=== PATIENT | female | born 1985 | race Caucasian/White ===

== ENCOUNTER 2016-11-02 10:41 | Day surgery (SDC) | payer OTHER ==
[~2016-11-02 10:41] MED LIST: Buffered Lidocaine 1% SYRIN* 3 ML/SYR SYRINGE INTRADERM ONE
[2016-11-02 10:43] LABS: Manual Entry Verification HAN0055; UR Preg Internal Control QC Line Present
[2016-11-02] MEDS ORDERED: Midazolam* 1 MG/ML 2 ML VIAL (2 MG) ONE (12:00)
[2016-11-02] MEDS ORDERED: Lidocaine 2% PF * 5 ML VIAL ONE (12:00)
[2016-11-02] MEDS ORDERED: fentaNYL* 50 MCG/ML 2 ML VIAL (100 MCG VIAL) ONE (12:00)
[2016-11-02] MEDS ORDERED: Propofol* 10 MG/ML 20 ML BTL IV PUSH ONE (12:00)
[2016-11-02] MEDS ORDERED: fentaNYL* 50 MCG/ML 2 ML VIAL (100 MCG VIAL) IV PRN (12:41)
[2016-11-02] MEDS ORDERED: Ondansetron INJ* 2 MG/ML VIAL IV PRN (12:41)
[2016-11-02 13:44] VITALS: BP 115/60
--- NOTE | 2016-11-03 03:30 | PRO ---
DATE OF PROCEDURE: 11/02/16 [facility] PROCEDURE: EGD. INDICATION: Weight loss, vomiting, hematemesis and abdominal pain. REFERRING PHYSICIAN: Dr. Rocha. MEDICATIONS GIVEN: Conscious sedation administered via anesthesia services. PROCEDURE IN DETAIL: After the EGD procedure, including the risks, benefits, and alternatives, not limited to perforation, surgery and/or were explained to the patient, written consent was then obtained. IV medication was given and a bite block was placed between the teeth. An Olympus gastroscope was then inserted into the patient's mouth, advanced down the esophagus, into the stomach, and into the distal duodenum. In the duodenum, the mucosa appeared normal. A biopsy was obtained for celiac disease. The scope was then withdrawn into the stomach. Retroflex view did reveal a few scattered, very small erosions mainly in the cardia, there were 1 or 2 down in the antrum. Biopsy was obtained for H. pylori. The scope was then withdrawn into the esophagus. At the distal esophagus, there were what appeared to be pinkish plaques, almost looked like an ulcer. I did take a biopsy adjacent to one of them. The scope was then withdrawn from the patient. She tolerated the procedure well and returned to the recovery room in stable condition. IMPRESSION: 1. Complete upper endoscopy into the distal duodenum with biopsies. 2. Erosive esophagitis, status post biopsy. 3. Gastric erosions, status post biopsy. 4. Biopsy for celiac disease. 5. The patient was complaining of epigastric pain after the procedure. She states that it feels very similar to the pain she has been having ever since this began a few months ago. She does have good bowel sounds. She is tender in the epigastric region. She states that this was not present prior to the endoscopy; however, this feels very similar to the episodes of pain and vomiting that she has been having over the past few months. She did drink half a cup of liquid with no ill effects and states that maybe it felt a little bit better. We did watch her for an extended period of time. She states that it felt slightly better than at the beginning, but again it feels just like what has been going on in the past. Her vital signs are stable. She looks fairly comfortable. She was discharged to home. I did call in a prescription for Carafate for her and I asked her to call me immediately if any of her symptoms worsen or she develops fevers, chills, or abdominal distention; she understands. I will follow up on the biopsies. CC: Dr. Rocha* [id number]/[facility] #: [id number] LALA
== END 2016-11-02 14:00 | disposition home or self-care (01) ==
LOC: OR 10:41
PROVIDERS: ATTEND Internal Medicine Gastroenterology
DX: K92.0 Hematemesis (principal); R10.13 Epigastric pain; R11.0 Nausea; R63.4 Abnormal weight loss; K20.8 Other esophagitis; F17.210 Nicotine dependence, cigarettes, uncomplicated
CPT/HCPCS: 81025; 87077; 88305; J2250; J2704; J3010

== ENCOUNTER 2016-12-13 18:55 | Emergency (ER) | payer OTHER ==
[2016-12-13 19:04] VITALS: BP 133/81
--- NOTE | 2016-12-13 20:28 | ED ---
Upper Extremity Pain - HPI Summary HPI Summary: Patient presents with one month of right arm pain that began without known injury. She says she thought she must have pulled a muscle and that it would improve on its own, but it hasn't. She has tried taking ibuprofen, tylenol and her regular gabapentin without relief. She has not seen her PCP regarding this issue. She describes the pain as a deep ache without muscle wasting, lack of function or N/T. - History of Current Complaint Chief Complaint: EDExtremityUpper Stated Complaint: RIGHT ARM PAIN Time Seen by Provider: 12/13/16 19:47 Hx Obtained From: Patient Hx Last Menstrual Period: 11/13/15 Mechanism Of Injury: Unknown Onset/Duration: Started Weeks Ago - 4, Atraumatic, Still Present Timing: Constant Severity Initially: Mild Severity Currently: Severe Pain Location: Arm Character: Dull, Aching Aggravating Factor(s): Nothing Alleviating Factor(s): Nothing Associated Signs & Symptoms: Positive: Negative Related History: Dominant Hand Right - Allergies/Home Medications Allergies/Adverse Reactions: Allergies Allergy/AdvReac Type Severity Reaction Status Date / Time Cephalexin [From Keflex] Allergy Unknown Verified 10/28/16 09:11 Reaction Details Clarithromycin [From Biaxin] Allergy Nausea Verified 05/12/16 14:52 Clindamycin Allergy Vomiting Verified 05/12/16 14:52 Cyclobenzaprine Allergy Nausea Verified 05/12/16 14:52 [From Flexeril] Doxycycline Allergy Vomiting Verified 05/12/16 14:52 Metaxalone [From Skelaxin] Allergy Nausea Verified 05/12/16 14:52 Penicillins Allergy Unknown Verified 10/28/16 09:11 Reaction Details Sulfamethoxazole Allergy Nausea Verified 05/12/16 14:52 w/Trimethoprim [From Bactrim] Tramadol [From Ultram] Allergy Unknown Verified 10/28/16 09:11 Reaction Details PMH/Surg Hx/FS Hx/Imm Hx Endocrine/Hematology History: Denies: Hx Diabetes Cardiovascular History: Reports: Hx Syncope Denies: Hx Hypertension, Hx Pacemaker/ICD Respiratory History: Denies: Hx Asthma GI History: Reports: Hx Gastroesophageal Reflux Disease - on med, Hx Irritable Bowel History: Denies: Hx Dialysis, Hx Renal Disease Musculoskeletal History: Reports: Hx Back Problems, Hx Orthopedic Injury, Other Musculoskeletal History - reports multiple fractures in past Denies: Hx Rheumatoid Arthritis Sensory History: Reports: Hx Contacts or Glasses - glasses for driving Denies: Hx Hearing Aid Opthamlomology History: Reports: Hx Contacts or Glasses - glasses for driving Neurological History: Reports: Hx Migraine - on med, Other Neuro Impairments/ Disorders - reports she has a pituitary adenoma Psychiatric History: Reports: Hx Anxiety - prn med, Hx Depression - bipolar, Hx [facility] [place] - seen prior at [facility] in 2013 Denies: Hx Eating Disorder, Hx Panic Disorder, Hx Inpatient Treatment - no known, Hx of Violent Episodes Against Others, Hx Substance Abuse - Surgical History Surgery Procedure, Year, and Place: tonsillectomy 1989 [place]. right ovarian cyst removed 2006 [facility] [place]. cholecystectomy 2006 [facility] [place]. D&C 2006 [facility] [place]. teeth extraction ( one in office and one at [facility] [place] ear biopsy - 2014 [facility] [place] Hx Anesthesia Reactions: No Infectious Disease History: No Infectious Disease History: Denies: Hx Clostridium Difficile, Hx Hepatitis, Hx Human Immunodeficiency Virus (HIV), Hx of Known/Suspected MRSA, Hx Shingles, Hx Tuberculosis, Hx Known/ Suspected VRE, Hx Known/Suspected VRSA, History Other Infectious Disease, Traveled Outside the in Last 30 Days - Family History Known Family History: Positive: Cardiac Disease, Diabetes - Social History Occupation: Unemployed Lives: With Family Alcohol Use: None Substance Use Type: Reports: None Substance Use Comment - Amount & Last Used: hx cannabis use Hx Tobacco Use: Yes Smoking Status (MU): Heavy Every Day Tobacco Smoker Type: Cigarettes Amount Used/How Often: 1 - 1 1/2 ppd for 15 years Length of Time of Smoking/Using Tobacco: since 17yo Have You Smoked in the Last Year: Yes Cessation Counseling: Patient Advised to Stop Review of Systems Positive: Myalgia All Other Systems Reviewed And Are Negative: Yes Physical Exam Triage Information Reviewed: Yes Vital Signs On Initial Exam: Initial Vitals Temp Pulse Resp BP Pulse Ox 97.9 F 97 20 133/81 100 12/13/16 19:02 12/13/16 19:02 12/13/16 19:02 12/13/16 19:02 12/13/16 19:02 Vital Signs Reviewed: Yes Appearance: Positive: Well-Appearing, Well-Nourished, Pain Distress Skin: Positive: Warm, Skin Color Reflects Adequate Perfusion, Dry, Soft Head/Face: Positive: Normal Head/Face Inspection Eyes: Positive: EOMI, PARVEZ, Conjunctiva Clear ENT: Positive: Hearing grossly normal Respiratory/Lung Sounds: Positive: Breath Sounds Present Cardiovascular: Positive: RRR Musculoskeletal: Positive: Limited @ - right shoulder FF to 30, abd to 20; elbow extension to 0, flexion to 80; full pro/sup, Pain @ - hypersensitive to light touch throughout the entire right arm. Negative: Edema Right Neurological: Positive: NV Bundle Intact Distally - intact bilaterally Psychiatric: Positive: Affect/Mood Appropriate AVPU Assessment: Alert Diagnostics - Vital Signs Vital Signs Temp Pulse Resp BP Pulse Ox 12/13/16 19:04 97.9 F 100 20 133/81 99 12/13/16 19:02 97.9 F 97 20 133/81 100 - Laboratory Lab Statement: Any lab studies that have been ordered have been reviewed, and results considered in the medical decision making process. Course/Dx - Course Course Of Treatment: The patient walked out after I left the room without undergoing treatment. - Diagnoses Differential Diagnosis/HQI/PQRI: Positive: Arthritis, Bursitis, Contusion, Fracture (Closed), Strain, Sprain Provider Diagnoses: Right arm pain Discharge - Discharge Plan Condition: Stable Disposition: HOME
== END 2016-12-13 20:15 | disposition home or self-care (01) ==
LOC: ED 18:55
DX: M79.601 Pain in right arm (principal)
CPT/HCPCS: 99282

== ENCOUNTER 2017-01-04 13:06 | Emergency (ER) | payer OTHER ==
[2017-01-04 13:13] VITALS: BP 129/76
--- NOTE | 2017-01-04 13:41 | UC ---
Natalie Trevizo Claudia, scribed for Rock Mclaughlin MD on 01/04/17 at 1323 . Dental HPI - HPI Summary HPI Summary: 31 year old female presents to the [facility] with a dental abscess to her left molar that is causing her pain that she describes as an ache and is an 8/10 on the pain scale. She notes that she has been having this pain for a month, and now the pain is preventing her from PO intake. Pt states the pain is constant and is radiating through her jaw and up into her head. She states she has finished 2 courses of abx(azithromycin and clindamycin) for the abscess but does not have an appt. at her Dentist till the end of January for the extraction. She denies any associated Sx of fever or chills as well as any alleviating or aggravating factors including ice, heat and Naproxen. - History of Current Complaint Chief Complaint: UCDentalProblem Stated Complaint: DENTAL COMPLAINT Time Seen by Provider: 01/04/17 13:09 Hx Obtained From: Patient Hx Last Menstrual Period: 01/02/17 Onset/Duration: Gradual Onset, Still Present Pain Scale Used: 0-10 Numeric - 8/10 Dental: 1 - tenderness - Allergies/Home Medications Allergies/Adverse Reactions: Allergies Allergy/AdvReac Type Severity Reaction Status Date / Time Cephalexin [From Keflex] Allergy Unknown Verified 01/04/17 13:13 Reaction Details Clarithromycin [From Biaxin] Allergy Nausea Verified 01/04/17 13:13 Clindamycin Allergy Vomiting Verified 01/04/17 13:13 Cyclobenzaprine Allergy Nausea Verified 01/04/17 13:13 [From Flexeril] Doxycycline Allergy Vomiting Verified 01/04/17 13:13 Metaxalone [From Skelaxin] Allergy Nausea Verified 01/04/17 13:13 Penicillins Allergy Unknown Verified 01/04/17 13:13 Reaction Details Sulfamethoxazole Allergy Nausea Verified 01/04/17 13:13 w/Trimethoprim [From Bactrim] Tramadol [From Ultram] Allergy Unknown Verified 01/04/17 13:13 Reaction Details PMH/Surg Hx/FS Hx/Imm Hx Previously Healthy: Yes - Surgical History Surgical History: Yes Surgery Procedure, Year, and Place: tonsillectomy 1989 [place]. right ovarian cyst removed 2006 [facility] [place]. cholecystectomy 2006 [facility] [place]. D&C 2006 - [facility] [place]. teeth extraction ( one in office and one at [facility] [place]). ear biopsy - 2014 [facility] [place] - Family History Known Family History: Positive: Cardiac Disease, Diabetes - Social History Occupation: Unemployed Alcohol Use: None Substance Use Type: None Substance Use Comment - Amount & Last Used: hx cannabis use Smoking Status (MU): Heavy Every Day Tobacco Smoker Type: Cigarettes Amount Used/How Often: 1 - 1 1/2 ppd for 15 years Length of Time of Smoking/Using Tobacco: since 17yo Have You Smoked in the Last Year: Yes Household Exposure Type: Cigarettes - Immunization History Most Recent Influenza Vaccination: declined 2013 Most Recent Tetanus Shot: unsure Most Recent Pneumonia Vaccination: none Review of Systems Constitutional: Negative - NO FEVER CHILLS Skin: Negative Eyes: Negative ENT: Dental Pain Respiratory: Negative Cardiovascular: Negative Gastrointestinal: Negative Genitourinary: Negative Motor: Negative Neurovascular: Negative Musculoskeletal: Negative Neurological: Negative Psychological: Negative All Other Systems Reviewed And Are Negative: Yes Physical Exam Triage Information Reviewed: Yes Appearance: Well-Appearing, Ill-Appearing, Pain Distress Vital Signs: Initial Vital Signs Temp 98.0 F 01/04/17 13:09 Pulse 76 01/04/17 13:09 Resp 20 01/04/17 13:09 BP 129/76 01/04/17 13:09 Pulse Ox 98 01/04/17 13:09 Vital Signs Reviewed: Yes Eyes: Positive: Conjunctiva Clear ENT: Positive: Normal ENT inspection, Hearing grossly normal, Pharynx normal Dental: Positive: Gross Decay/Caries @ - tenderness tooth # 17 Neck exam: Normal Neck: Positive: Supple, Nontender, No Lymphadenopathy Respiratory: Positive: Chest non-tender, Lungs clear, Normal breath sounds, No respiratory distress Cardiovascular: Positive: RRR, No Murmur, Pulses Normal Skin Exam: Normal Dental Complaint Course/Dx - Differential Dx/Diagnosis Provider Diagnoses: dental pain Discharge - Discharge Plan Condition: Stable Disposition: HOME Prescriptions: Clindamycin Cap(NF) [Cleocin 300 mg Cap(NF)] 300 mg PO TID #21 cap Ibuprofen TAB* [Motrin TAB* 800 MG] 800 mg PO Q8H #15 tab Patient Education Materials: Toothache (ED) Referrals: Hernandez Rocha MD [Primary Care Provider] - 5 Days Additional Instructions: please call your dentist office and see if they can see you sooner The documentation as recorded by the Natalie whittaker Claudia accurately reflects the service I personally performed and the decisions made by me, Rock Mclaughlin MD.
== END 2017-01-04 13:52 | disposition home or self-care (01) ==
LOC: UCEAST 13:06
DX: K08.89 Other specified disorders of teeth and supporting structures (principal); Z72.0 Tobacco use
CPT/HCPCS: 99212; G0463

== ENCOUNTER 2017-02-08 15:39 | Emergency (ER) | payer OTHER ==
[2017-02-08 15:45] VITALS: BP 134/70
--- NOTE | 2017-02-08 16:25 | UC ---
Skin Complaint HPI - HPI Summary HPI Summary: ONE WEEK AGO HAD FLYING ISECT STING TO LEFT LOWER ABDOMEN. NO FEVER. NO ABDOMINAL PAIN. NO JOINT PAIN OR WEAKNESS. NO CHEST PAIN OR SHORTNESS OF BREATH. LAST FOUR DAYS HAS HAD WORSENING REDNESS AND DISCHARGE. ALLERGIC TO MANY ANTIBIOTICS, HAS TAKEN AZITHROMYCIN WITHOUT COMPLICATIONS. - History of Current Complaint Chief Complaint: UCSkin Time Seen by Provider: 02/08/17 15:41 Stated Complaint: PAINFUL BITE REACTION Hx Obtained From: Patient Hx Last Menstrual Period: 02/04/17 Onset/Duration: Gradual Onset, Lasting Days, Still Present Skin Exposure Onset/Duration: Weeks Ago Onset Severity: Mild Current Severity: Moderate Location: Discrete - LEFT LOWER ABDOMEN Character: Swelling, Redness, Raised, Painful Aggravating: Nothing Alleviating: Nothing Associated Signs & Symptoms: Positive: Drainage, Tenderness, Red Streaks. Negative: Vomiting, Numbness, Shivering, Fever, Chills, Cough, Wheezing, Chest Pain, Hoarseness, Throat Tightening, Syncope, Bruising Related History: Insect Bite/Sting, Possible Reaction to: Insect - Allergy/Home Medications Allergies/Adverse Reactions: Allergies Allergy/AdvReac Type Severity Reaction Status Date / Time Cephalexin [From Keflex] Allergy Unknown Verified 02/08/17 15:46 Reaction Details Clarithromycin [From Biaxin] Allergy Nausea Verified 02/08/17 15:46 Clindamycin Allergy Vomiting Verified 02/08/17 15:46 Cyclobenzaprine Allergy Nausea Verified 02/08/17 15:46 [From Flexeril] Doxycycline Allergy Vomiting Verified 02/08/17 15:46 Metaxalone [From Skelaxin] Allergy Nausea Verified 02/08/17 15:46 Penicillins Allergy Unknown Verified 02/08/17 15:46 Reaction Details Sulfamethoxazole Allergy Nausea Verified 02/08/17 15:46 w/Trimethoprim [From Bactrim] Tramadol [From Ultram] Allergy Unknown Verified 02/08/17 15:46 Reaction Details Home Medications: Home Medications Amitriptyline TAB* [Elavil TAB*] 10 mg PO BEDTIME 02/08/17 [History Confirmed ] Review of Systems Constitutional: Negative Skin: Other - ABSCESS LEFT LOWER ABDOMEN Eyes: Negative ENT: Negative Respiratory: Negative Cardiovascular: Negative Gastrointestinal: Negative Genitourinary: Negative Motor: Negative Neurovascular: Negative Musculoskeletal: Negative Neurological: Negative Psychological: Negative All Other Systems Reviewed And Are Negative: Yes PMH/Surg Hx/FS Hx/Imm Hx Previously Healthy: Yes - Surgical History Surgical History: Yes Surgery Procedure, Year, and Place: tonsillectomy 1989 [place]. right ovarian cyst removed 2006 [facility] [place]. cholecyst[place] 2006 [facility] [place]. D&C 2006 - [facility] [place]. teeth extraction ( one in office and one at [facility] [place] ear biopsy - 2014 [facility] [place] - Family History Known Family History: Positive: Cardiac Disease, Diabetes - Social History Occupation: Employed Full-time Lives: With Family Alcohol Use: None Substance Use Type: None Substance Use Comment - Amount & Last Used: hx cannabis use Smoking Status (MU): Heavy Every Day Tobacco Smoker Type: Cigarettes Amount Used/How Often: 1 - 1 1/2 ppd for 15 years Length of Time of Smoking/Using Tobacco: since 17yo Have You Smoked in the Last Year: Yes Household Exposure Type: Cigarettes Cessation Counseling: Patient Advised to Stop - Immunization History Most Recent Influenza Vaccination: declined 2013 Most Recent Tetanus Shot: unsure Most Recent Pneumonia Vaccination: none Physical Exam Triage Information Reviewed: Yes Appearance: Well-Appearing, Well-Nourished, Pain Distress - MILD Vital Signs: Initial Vital Signs Temp 98.2 F 02/08/17 15:41 Pulse 91 02/08/17 15:41 Resp 20 02/08/17 15:41 BP 134/70 02/08/17 15:41 Pulse Ox 100 02/08/17 15:41 Vital Signs Reviewed: Yes Eye Exam: Normal ENT Exam: Normal ENT: Positive: Normal ENT inspection Dental Exam: Normal Neck exam: Normal Neck: Positive: Supple, Nontender, No Lymphadenopathy Respiratory Exam: Normal Respiratory: Positive: Chest non-tender, Lungs clear, Normal breath sounds, No respiratory distress, No accessory muscle use Cardiovascular Exam: Normal Cardiovascular: Positive: RRR, No Murmur, Pulses Normal Abdomen Description: Positive: No Organomegaly, Soft. Negative: Nontender - LEFT LOWER ABDOMEN AT SITE OF ABSCESS Bowel Sounds: Positive: Present Musculoskeletal Exam: Normal Neurological Exam: Normal Psychological Exam: Normal Psychological: Positive: Normal Response To Family Skin: Positive: Other - 3CM X 3CM DRAINING ABSCESS LEFT LOWER ABDOMEN Course/Dx - Differential Diagnoses - Skin Complaint Differential Diagnoses: Abscess, Cellulitis, MRSA, Tick Born Illness, Tinea, Varicella Zoster - Diagnoses Provider Diagnoses: 3CM X 3CM DRAINING ABSCESS LEFT LOWER ABDOMEN Discharge - Discharge Plan Condition: Stable Disposition: HOME Prescriptions: Azithromycin TAB* [Zithromax TAB (Z-EARLE) 250 mg #6 tabs] 250 mg PO DAILY #6 tab Patient Education Materials: Cellulitis (ED), Abscess (ED) Referrals: [facility] [Outside] Dwayne Damon MD [Medical Doctor] - Hernandez Rocha MD [Medical Doctor] - Images Front/Back of Body, Lg (Parmer): 1 - 3CM X 3CM DRAINING ABSCESS LEFT LOWER ABDOMEN
--- NOTE | 2017-02-10 20:07 | ED ---
Progress - Progress Note Progress Note: CALL PATIENT, GORDON (+), CONTINUE ABX Course/Dx - Diagnoses Provider Diagnoses: Abscess
== END 2017-02-08 16:15 | disposition home or self-care (01) ==
LOC: UCEAST 15:39
DX: L02.211 Cutaneous abscess of abdominal wall (principal); T63.481A Toxic effect of venom of other arthropod, accidental (unintentional), initial encounter; Y92.9 Unspecified place or not applicable; Z72.0 Tobacco use
CPT/HCPCS: 87070; 87077; 87186; 87205; 87640; 87641

== ENCOUNTER 2017-02-27 17:21 | Emergency (ER) | payer OTHER ==
--- NOTE | 2017-02-27 20:35 | RAD ---
HISTORY: Right arm pain COMPARISONS: February 02, 2017 VIEWS: 4, Frontal internal rotation, external rotation, outlet, and axillary views of the right shoulder FINDINGS: BONE DENSITY: Normal. BONES: There is no displaced fracture. 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 SOFT TISSUES: Unremarkable. OTHER FINDINGS: None. IMPRESSION: NO ACUTE OSSEOUS INJURY. IF SYMPTOMS PERSIST, RECOMMEND REPEAT IMAGING.
[2017-02-27] MEDS ORDERED: oxyCODONE/Acetamin 5/325 MG* TAB PO ONE (21:19)
--- NOTE | 2017-02-27 21:19 | ED ---
Upper Extremity Pain - HPI Summary HPI Summary: 31F presents with right shoulder pain today. She has history of shoulder pain that is seeing dr ponce for. She states she has rotator cuff damage that may need surgery. Today she tripped on a child toy and landed on her right shoulder. She states the pain is extreme. She states she has chronic numbness and tingling that is unchanged as she has issues with her elbow and hand that dr moore is seeing her for. She states her pain was controlled until this point. She is sobbing in room. She has been keeping her shoulder in a sling. She is suppose to see PT on Wednesday. She has extensive list of allergies. She is right handed. - History of Current Complaint Chief Complaint: EDExtremityUpper Stated Complaint: RT ARM PAIN Time Seen by Provider: 02/27/17 19:58 Hx Last Menstrual Period: 02/04/17 - Allergies/Home Medications Allergies/Adverse Reactions: Allergies Allergy/AdvReac Type Severity Reaction Status Date / Time Cephalexin [From Keflex] Allergy Unknown Verified 02/10/17 09:47 Reaction Details Clarithromycin [From Biaxin] Allergy Nausea Verified 02/10/17 09:47 Clindamycin Allergy Vomiting Verified 02/10/17 09:47 Cyclobenzaprine Allergy Nausea Verified 02/10/17 09:47 [From Flexeril] Doxycycline Allergy Vomiting Verified 02/10/17 09:47 Metaxalone [From Skelaxin] Allergy Nausea Verified 02/10/17 09:47 Penicillins Allergy Unknown Verified 02/10/17 09:47 Reaction Details Sulfamethoxazole Allergy Nausea Verified 02/10/17 09:47 w/Trimethoprim [From Bactrim] Tramadol [From Ultram] Allergy Unknown Verified 02/10/17 09:47 Reaction Details PMH/Surg Hx/FS Hx/Imm Hx Endocrine/Hematology History: Denies: Hx Diabetes Cardiovascular History: Reports: Hx Syncope Denies: Hx Hypertension, Hx Pacemaker/ICD Respiratory History: Denies: Hx Asthma, Hx Chronic Obstructive Pulmonary Disease (COPD) GI History: Reports: Hx Gastroesophageal Reflux Disease - on med, Hx Irritable Bowel History: Denies: Hx Dialysis, Hx Renal Disease Musculoskeletal History: Reports: Hx Back Problems, Hx Orthopedic Injury, Other Musculoskeletal History - reports multiple fractures in past Denies: Hx Rheumatoid Arthritis Sensory History: Reports: Hx Contacts or Glasses - glasses for driving Denies: Hx Hearing Aid Opthamlomology History: Reports: Hx Contacts or Glasses - glasses for driving Neurological History: Reports: Hx Migraine - on med, Other Neuro Impairments/ Disorders - reports she has a pituitary adenoma Psychiatric History: Reports: Hx Anxiety - prn med, Hx Depression - bipolar, Hx Community Mental Health Tx - seen prior at [facility] in 2013 Denies: Hx Eating Disorder, Hx Panic Disorder, Hx Inpatient Treatment - no known, Hx of Violent Episodes Against Others, Hx Substance Abuse - Surgical History Surgery Procedure, Year, and Place: tonsillectomy 1989 [place]. right ovarian [place] 2006 [facility] [place]. [place] 2006 [facility] [place]. D[place] 2006 - [facility] [place]. teeth extraction ( one in office and one at [facility] [place] ear biopsy - 2014 - [facility] [place] Hx Anesthesia Reactions: No Infectious Disease History: Denies: Hx Clostridium Difficile, Hx Hepatitis, Hx Human Immunodeficiency Virus (HIV), Hx of Known/Suspected MRSA, Hx Shingles, Hx Tuberculosis, Hx Known/ Suspected VRE, Hx Known/Suspected VRSA, History Other Infectious Disease, Traveled Outside the in Last 30 Days - Family History Known Family History: Positive: Cardiac Disease, Diabetes - Social History Alcohol Use: None Substance Use Type: Reports: None Substance Use Comment - Amount & Last Used: hx cannabis use Hx Tobacco Use: Yes Smoking Status (MU): Heavy Every Day Tobacco Smoker Type: Cigarettes Amount Used/How Often: 1 - 1 1/2 ppd for 15 years Length of Time of Smoking/Using Tobacco: since 17yo Have You Smoked in the Last Year: Yes Review of Systems Negative: Fever Negative: Chest Pain Negative: Shortness Of Breath Positive: Myalgia - right shoulder All Other Systems Reviewed And Are Negative: Yes Physical Exam Triage Information Reviewed: Yes Vital Signs On Initial Exam: Initial Vitals Temp Pulse Resp BP Pulse Ox 97.3 F 68 20 121/70 98 02/27/17 17:41 02/27/17 17:41 02/27/17 17:41 02/27/17 17:41 02/27/17 17:41 Vital Signs Reviewed: Yes Appearance: Positive: Pain Distress Skin: Positive: Warm, Dry Head/Face: Positive: Normal Head/Face Inspection, Scalp Eyes: Positive: Normal, EOMI, PARVEZ ENT: Positive: Normal ENT inspection, Pharynx normal, TMs normal Respiratory/Lung Sounds: Positive: Clear to Auscultation, Breath Sounds Present Cardiovascular: Positive: Normal, RRR Musculoskeletal: Positive: Limited @ - right shoulder, Other - tenderness across right shoulder, good pulses, capillary refill<2 secs Diagnostics - Vital Signs Vital Signs Temp Pulse Resp BP Pulse Ox 02/27/17 19:41 98.6 F 71 17 119/79 99 02/27/17 17:41 97.3 F 68 20 121/70 98 - Laboratory Lab Statement: Any lab studies that have been ordered have been reviewed, and results considered in the medical decision making process. - Radiology shoulder Xray Interpretation: No Acute Changes Radiology Interpretation Completed By: Radiologist Course/Dx - Course Course Of Treatment: 31F presents with right shoulder pain today. She has history of shoulder pain that is seeing dr ponce for. She states she has rotator cuff damage that may need surgery. Today she tripped on a child toy and landed on her right shoulder. She states the pain is extreme. She states she has chronic numbness and tingling that is unchanged as she has issues with her elbow and hand that dr moore is seeing her for. She states her pain was controlled until this point. on exam tender across shoulder. neg xray. will have follow up with dr ponce for continued care as is chronic issue. gave short course of pain medication due to new injury. patient understands and agrees with plan. - Diagnoses Differential Diagnosis/HQI/PQRI: Positive: Fracture (Closed), Strain, Sprain Provider Diagnoses: Right shoulder pain Discharge - Discharge Plan Condition: Good Disposition: HOME Prescriptions: oxyCODONE/Acetamin 5/325 MG* [Percocet 5/325 TAB*] 1 tab PO Q6H PRN #8 tab MDD 4 PRN Reason: Pain Patient Education Materials: Shoulder Pain (ED) Referrals: Hernandez Rocha MD [Primary Care Provider] - Jourdan Ponce MD [Medical Doctor] - Additional Instructions: Take normal pain medication, will give narcotic for break through pain Follow up with dr ponce Return to ED if develop any new or worsening symptoms
[2017-02-27 21:33] VITALS: BP 113/71
== END 2017-02-27 21:33 | disposition home or self-care (01) ==
LOC: ED 17:21
DX: M25.511 Pain in right shoulder (principal); F17.210 Nicotine dependence, cigarettes, uncomplicated
CPT/HCPCS: 99281; A9270-GY

== ENCOUNTER 2017-04-13 11:52 | Emergency (ER) | payer OTHER ==
[2017-04-13 12:11] VITALS: BP 118/75
[2017-04-13] MEDS ORDERED: HYDROcodone/ACETAMIN 5-325 MG* 1 TAB PO ONE (13:01)
[2017-04-13] MEDS ORDERED: Orphenadrine Citrate IV* 30 MG/ML 2 ML VIAL IM ONE (15:07)
[2017-04-13] MEDS ORDERED: Ketorolac INJ* 30 MG/ML 1 ML VIAL IM ONE (15:07)
[2017-04-13] MEDS ORDERED: Dexamethasone IV* 4 MG/ML 1 ML (4 MG) IM ONE (15:07)
--- NOTE | 2017-04-13 15:59 | ED ---
Upper Extremity Pain - HPI Summary HPI Summary: 31 female presents to ED with complaints of chronic right arm pain that has been ongoing for the past 4 months. States she has problems with her nerve and anatomy due to a traumatic fall that she is supposed to have surgery on. Unknown of specific injuries. States surgery was supposed to be yesterday however was cancelled due to not have clearance by anesthesiologist.She has been taking [place] for pain however ran out. States she also has been taking ibuprofen and tylenol without relief, alternating them. Last dose being early this morning. Denies no onset of any pain, numbness/tingling, or weakness. Her symptoms have been chronic. Wants the surgery to be done today, as she can not take the pain anymore. No other complaints. No PMHx other than pituitary adenoma. Denies obvious signs of trauma, erythema, ecchymosis, obvious deformity or swelling. - History of Current Complaint Chief Complaint: EDExtremityUpper Stated Complaint: RIGHT ARM INJURY/PAIN Time Seen by Provider: 04/13/17 12:19 Hx Obtained From: Patient Hx Last Menstrual Period: 02/04/17 Mechanism Of Injury: Other - previous trauma Onset/Duration: Started Weeks Ago - months, chronic, Traumatic, Still Present Timing: Constant - worse at times Severity Initially: Severe Severity Currently: Severe Pain Location: Arm, Forearm, Wrist, Hand Character: Sharp, Aching, Throbbing, Spasmodic, Burning Aggravating Factor(s): Movement - anything Alleviating Factor(s): Nothing - norco in the past Associated Signs & Symptoms: Positive: Weakness - chronic right arm, Numbness/ Tingling - chronic right arm Related History: Dominant Hand Right - Allergies/Home Medications Allergies/Adverse Reactions: Allergies Allergy/AdvReac Type Severity Reaction Status Date / Time Cephalexin [From Keflex] Allergy Unknown Verified 04/13/17 12:09 Reaction Details Penicillins Allergy Unknown Verified 04/13/17 12:09 Reaction Details Tramadol [From Ultram] Allergy Unknown Verified 04/13/17 12:09 Reaction Details Clarithromycin [From Biaxin] AdvReac Nausea Verified 04/13/17 16:09 Clindamycin AdvReac Vomiting Verified 04/13/17 16:09 Cyclobenzaprine AdvReac Nausea Verified 04/13/17 16:09 [From Flexeril] Doxycycline AdvReac Vomiting Verified 04/13/17 16:09 Metaxalone [From Skelaxin] AdvReac Nausea Verified 04/13/17 16:09 Naproxen AdvReac GI Upset Verified 04/13/17 16:07 Sulfamethoxazole AdvReac Nausea Verified 04/13/17 16:09 w/Trimethoprim [From Bactrim] miracle whip Allergy n/v, Uncoded 04/13/17 12:09 itchy. hives ragu spaghetti sauce Allergy n/v, Uncoded 04/13/17 12:09 hives, itchiness PMH/Surg Hx/FS Hx/Imm Hx Endocrine/Hematology History: Denies: Hx Diabetes Cardiovascular History: Reports: Hx Syncope Denies: Hx Hypertension, Hx Pacemaker/ICD Respiratory History: Denies: Hx Asthma, Hx Chronic Obstructive Pulmonary Disease (COPD) GI History: Reports: Hx Gastroesophageal Reflux Disease - on med, Hx Irritable Bowel History: Denies: Hx Dialysis, Hx Renal Disease Musculoskeletal History: Reports: Hx Back Problems, Hx Orthopedic Injury, Other Musculoskeletal History - reports multiple fractures in past, chronic right arm pain and injury/ulnar Denies: Hx Rheumatoid Arthritis Sensory History: Reports: Hx Contacts or Glasses - glasses for driving Denies: Hx Hearing Aid Opthamlomology History: Reports: Hx Contacts or Glasses - glasses for driving Neurological History: Reports: Hx Migraine - on med, Other Neuro Impairments/ Disorders - reports she has a pituitary adenoma Psychiatric History: Reports: Hx Anxiety - prn med, Hx Depression - bipolar, Hx Community Mental Health Tx - seen prior at [facility] in 2013 Denies: Hx Eating Disorder, Hx Panic Disorder, Hx Inpatient Treatment - no known, Hx of Violent Episodes Against Others, Hx Substance Abuse - Surgical History Surgery Procedure, Year, and Place: tonsillectomy 1989 [place] [facility] [place] [facility] [place] [facility] [place] ( [place] [facility] [place] [facility] [place]x Anesthesia Reactions: No - Immunization History Immunizations Up to Date: Yes Infectious Disease History: No Infectious Disease History: Denies: Hx Clostridium Difficile, Hx Hepatitis, Hx Human Immunodeficiency Virus (HIV), Hx of Known/Suspected MRSA, Hx Shingles, Hx Tuberculosis, Hx Known/ Suspected VRE, Hx Known/Suspected VRSA, History Other Infectious Disease, Traveled Outside the [place] in Last 30 Days - Family History Known Family History: Positive: Cardiac Disease, Diabetes - Social History Alcohol Use: None Substance Use Type: Reports: None Substance Use Comment - Amount & Last Used: hx cannabis use Hx Tobacco Use: Yes Smoking Status (MU): Heavy Every Day Tobacco Smoker Type: Cigarettes Amount Used/How Often: 1 - 1 1/2 ppd for 15 years Length of Time of Smoking/Using Tobacco: since 17yo Have You Smoked in the Last Year: Yes Review of Systems Constitutional: Negative Cardiovascular: Negative Respiratory: Negative Positive: Arthralgia, Myalgia, Decreased ROM - right arm Skin: Negative Positive: Weakness - chronic right arm, Paresthesia - chronic right arm All Other Systems Reviewed And Are Negative: Yes Physical Exam Triage Information Reviewed: Yes Vital Signs On Initial Exam: Initial Vitals Temp Pulse Resp BP Pulse Ox 97.8 F 79 20 118/75 98 04/13/17 12:07 04/13/17 12:07 04/13/17 12:07 04/13/17 12:07 04/13/17 12:07 Vital Signs Reviewed: Yes Appearance: Positive: Well-Appearing, Well-Nourished, Pain Distress - crying, cringing around stating she is in pain Skin: Positive: Warm, Skin Color Reflects Adequate Perfusion, Dry, Other - no ecchymosis, erythema, edema or obvious deformity, no crepitus or step off.. Negative: Cold, Soft, Pale, Erythema @ Head/Face: Positive: Normal Head/Face Inspection Eyes: Positive: Conjunctiva Clear ENT: Positive: Hearing grossly normal Neck: Positive: Supple, Nontender Respiratory/Lung Sounds: Positive: Clear to Auscultation, Breath Sounds Present. Negative: Rales, Rhonchi, Wheezes Cardiovascular: Positive: Normal, RRR, Pulses are Symmetrical in both Upper and Lower Extremities - 2+ radial. Negative: Murmur, Rub Bowel Sounds: Positive: Present Musculoskeletal: Positive: Normal, Limited @ - right arm chronic due to pain, Pain @ - right arm, entire shoulder to wrist, Other - no ecchymosis, erythema, edema or obvious deformity, no crepitus or step off.. Negative: Interruption @ , Abnormal @, Edema Left, Edema Right Neurological: Positive: Normal, Sensory/Motor Intact - sensation intact grossly however diminished ulnar side of fingers and forearm, Alert, Oriented to Person Place, Time, CN Intact II-III, Reflexes Intact, NV Bundle Intact Distally, Normal Gait Diagnostics - Vital Signs Vital Signs Temp Pulse Resp BP Pulse Ox 04/13/17 12:07 97.8 F 79 20 118/75 98 - Laboratory Lab Statement: Any lab studies that have been ordered have been reviewed, and results considered in the medical decision making process. Course/Dx - Course Course Of Treatment: Due to patient having chronic pain and symptoms, no new PE findings or complaints, no further imaging or lab values obtained. Given norco while in ED due to extensive allergy list without relief. attempted to give steroid, muscle relaxer and toradol however patient refused and stated she wanted to go home. states norco did not give her much relief and she wanted to have her surgery done. Was upset when she did not recieve narcotics. Appears as though PCP stopped giving scripts according to [facility] Reference #: [id number]. Concern for drug seeking however did attempt to help with her chronic pain. Told to call Dr Cuevas to attempt to reschedule surgery and be seen for chronic pain and managing their symptoms. Aware of worsening signs and symptoms. Continue iburpofen and tylenol at home as patient has been. RICE. and recommended topical agents. - Diagnoses Provider Diagnoses: Right arm pain Discharge - Discharge Plan Condition: Stable Disposition: HOME Prescriptions: Naproxen TAB* [Naprosyn 375 mg TAB*] 375 mg PO Q8H PRN #20 tab PRN Reason: Pain Patient Education Materials: Arm Pain (ED) Referrals: Damon Cuevas MD [Medical Doctor] - Hernandez Rocha MD [Primary Care Provider] - Additional Instructions: Continue ibuprofen/tylenol to help with pain and inflammation. Take with food. Recommend trying topical numbing agents such as "icey/hot" Call Ortho to follow up with scheduled surgery. Follow up PCP. New or worsening symptoms please seek medical attention.
== END 2017-04-13 16:25 | disposition home or self-care (01) ==
LOC: ED 11:52
DX: M79.601 Pain in right arm (principal); G89.29 Other chronic pain; K21.9 Gastro-esophageal reflux disease without esophagitis; F41.9 Anxiety disorder, unspecified; F32.9 Major depressive disorder, single episode, unspecified; F17.210 Nicotine dependence, cigarettes, uncomplicated
CPT/HCPCS: 96372; 99282; J1100; J1885; J2360

== ENCOUNTER 2017-05-18 17:28 | Emergency (ER) | payer OTHER ==
[2017-05-18] MEDS ORDERED: HYDROmorphone INJ* 2 MG/ML CARPUJECT SYRINGE IM ONE (18:23)
[2017-05-18] MEDS ORDERED: oxyCODONE TAB* 5 MG TAB PO ONE (18:24)
[2017-05-18 19:41] VITALS: BP 116/72
--- NOTE | 2017-05-26 01:37 | ED ---
Maggie Trevizo Thomas, scribed for Robert Drake MD on 05/18/17 at 1802 . Upper Extremity Pain - HPI Summary HPI Summary: The pt is a 31 y/o F presenting to the ED c/o postoperative pain from a surgery to her RUE that occurred yesterday. The pain is concentrated around her right elbow and thumb, although she has pain throughout her entire RUE. The pain is constant. The pain is described as burning. The pain is rated 10/10. The pain is aggravated by palpation and movement. It is alleviated by nothing. 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 Pt denies any other complaints at this time. - History of Current Complaint Chief Complaint: EDExtremityUpper Stated Complaint: POST SURGERY PAIN Time Seen by Provider: 05/18/17 17:47 Hx Obtained From: Patient Hx Last Menstrual Period: 02/04/17 Onset/Duration: Started Days Ago - 1, Still Present Timing: Constant Severity Currently: Severe Pain Location: Other: - Pain is over entire RUE, although worse in elbow and thumb Character: Burning Aggravating Factor(s): Movement, Other - Palpation Alleviating Factor(s): Nothing Associated Signs & Symptoms: Positive: Negative Related History: Other: - Surgery yesterday - Allergies/Home Medications Allergies/Adverse Reactions: Allergies Allergy/AdvReac Type Severity Reaction Status Date / Time Cephalexin [From Keflex] Allergy Severe Unknown Verified 05/17/17 08:10 Reaction Details Penicillins Allergy Severe hives, Verified 05/17/17 08:10 fever, rash Tramadol [From Ultram] Allergy Unknown Verified 05/17/17 08:10 Reaction Details Valproic Acid [From Depakote] Allergy Stomach Verified 05/17/17 08:10 Cramps Cyclobenzaprine AdvReac Severe increased Verified 05/17/17 08:10 [From Flexeril] depression, suicidal thoughts Metaxalone [From Skelaxin] AdvReac Severe increased Verified 05/17/17 08:10 depression, suicidal thoughts Clarithromycin [From Biaxin] AdvReac Nausea Verified 05/17/17 08:10 Clindamycin AdvReac Vomiting Verified 05/17/17 08:10 Doxycycline AdvReac Vomiting Verified 05/17/17 08:10 Meperidine [From Demerol HCl] AdvReac Vomiting Verified 05/17/17 08:10 Naproxen AdvReac GI Upset Verified 05/17/17 08:10 Sulfamethoxazole AdvReac Nausea Verified 05/17/17 08:10 w/Trimethoprim [From Bactrim] miracle whip Allergy Severe n/v, Uncoded 05/17/17 08:10 itchy. hives ragu spaghetti sauce Allergy Severe n/v, Uncoded 05/17/17 08:10 hives, itchiness MorphineIV Allergy Airway Uncoded 05/17/17 08:10 Obstruction Toradol IM Allergy Hives Uncoded 05/17/17 08:10 PMH/Surg Hx/FS Hx/Imm Hx Previously Healthy: No Endocrine/Hematology History: Denies: Hx Diabetes Cardiovascular History: Reports: Hx Syncope, Other Cardiovascular Problems/ Disorders - low blood pressure Denies: Hx Hypertension, Hx Pacemaker/ICD Respiratory History: Reports: Other Respiratory Problems/Disorders - insomnia Denies: Hx Asthma, Hx Chronic Obstructive Pulmonary Disease (COPD) GI History: Reports: Hx Gastroesophageal Reflux Disease - on med, Hx Irritable Bowel, Hx Ulcer - stomach ulcers and an ulcer in esophagus History: Denies: Hx Dialysis, Hx Renal Disease Musculoskeletal History: Reports: Hx Back Problems, Hx Orthopedic Injury, Other Musculoskeletal History - reports multiple fractures in past, chronic right arm pain and injury/ulnar Denies: Hx Rheumatoid Arthritis Sensory History: Reports: Hx Contacts or Glasses - glasses for driving Denies: Hx Cataracts, Hx Hearing Aid Opthamlomology History: Reports: Hx Contacts or Glasses - glasses for driving Denies: Hx Cataracts Neurological History: Reports: Hx Migraine - on med prn, Other Neuro Impairments /Disorders - reports she has a pituitary adenoma Psychiatric History: Reports: Hx Anxiety, Hx Depression, Hx Community Mental Health Tx - seen prior at [facility] in 2013 Denies: Hx Eating Disorder, Hx Panic Disorder, Hx Inpatient Treatment - no known, Hx of Violent Episodes Against Others, Hx Substance Abuse - Surgical History Surgery Procedure, Year, and Place: tonsillectomy 1989. [place] [facility] [place] [facility] [place] [facility] [place] ( one in office [place] [facility] [place] ear biopsy [place] [facility] [place] Hx Anesthesia Reactions: No Infectious Disease History: No Infectious Disease History: Denies: Hx Clostridium Difficile, Hx Hepatitis, Hx Human Immunodeficiency Virus (HIV), Hx of Known/Suspected MRSA, Hx Shingles, Hx Tuberculosis, Hx Known/ Suspected VRE, Hx Known/Suspected VRSA, History Other Infectious Disease, Traveled Outside the [place] in Last 30 Days - Family History Known Family History: Positive: Cardiac Disease, Diabetes - Social History Alcohol Use: None Substance Use Type: Reports: Prescribed - Prescribed hydrocodone for surgery Hx Tobacco Use: Yes Smoking Status (MU): Former Smoker Type: Cigarettes Amount Used/How Often: 1 - 1 1/2 ppd for 15 years on and off Length of Time of Smoking/Using Tobacco: since 17yo Have You Smoked in the Last Year: Yes Review of Systems Negative: Fever Positive: Other - RUE pain All Other Systems Reviewed And Are Negative: Yes Physical Exam - Summary Physical Exam Summary: General: Well-appearing, moderate pain distress. Skin: Warm, color reflects adequate perfusion, dry Head: Normal Eyes: EOMI, PARVEZ ENT: Normal Neck: Supple, nontender Respiratory: CTA, breath sounds present Cardiovascular: RRR Abdomen: Soft, nontender Bowel: Present Musculoskeletal: Normal. Extremities: The right arm is bandaged at the lower humerus all the way to her hand. On her fingers, there is good capillary refill. There is no sensation deficit. She has good range of motion in her hand. Neurological: Normal, sensory/motor intact, A&O x3 Psychological: Affect/mood appropriate. She is tearful. Triage Information Reviewed: Yes Vital Signs On Initial Exam: Initial Vitals Temp Pulse Resp BP Pulse Ox 96.9 F 65 17 114/77 98 05/18/17 17:41 05/18/17 17:41 05/18/17 17:41 05/18/17 17:41 05/18/17 17:41 Vital Signs Reviewed: Yes Diagnostics - Vital Signs Vital Signs Temp Pulse Resp BP Pulse Ox 05/18/17 17:41 96.9 F 65 17 114/77 98 - Laboratory Lab Statement: Any lab studies that have been ordered have been reviewed, and results considered in the medical decision making process. Course/Dx - Diagnoses Provider Diagnoses: Arm pain - Physician Notifications Discussed Care of Patient With: Saige Boudreaux Time Discussed With Above Provider: 18:45 Instructed by Provider To: Other - Dr. Boudreaux, orthopedics, says that the patient can be discharged with follow up at her office as long as there are no sensation or neurovascular deficits. Discharge - Discharge Plan Condition: Stable Disposition: HOME Prescriptions: oxyCODONE TAB* [Roxycodone TAB 5 mg*] 10 mg PO Q6H PRN #20 tab MDD 8 PRN Reason: Pain Patient Education Materials: Arm Pain (ED) Referrals: Hernandez Rocha MD [Primary Care Provider] - Additional Instructions: FOLLOW UP WITH ORTHOPEDICS, DR MAX, TOMORROW, 05/19/17. KEEP THE ARM ELEVATED JUST ABOVE THE LEVEL OF THE HEART. RETURN TO THE EMERGENCY DEPARTMENT FOR ANY WORSENING OF YOUR CONDITION; YOU ARE UNABLE FEEL YOUR FINGERS, LOSS OF BLOOD FLOW TO THE FINGERS, FEVER, PAIN OR QUESTIONS OR CONCERNS. The documentation as recorded by the Maggie whittaker Thomas accurately reflects the service I personally performed and the decisions made by me, Robert Drake MD.
== END 2017-05-18 19:26 | disposition home or self-care (01) ==
LOC: ED 17:28
DX: M25.521 Pain in right elbow (principal); M79.644 Pain in right finger(s); Z98.890 Other specified postprocedural states; R03.1 Nonspecific low blood-pressure reading; K21.9 Gastro-esophageal reflux disease without esophagitis; G43.909 Migraine, unspecified, not intractable, without status migrainosus; Z88.1 Allergy status to other antibiotic agents; Z88.5 Allergy status to narcotic agent; Z88.0 Allergy status to penicillin; Z88.2 Allergy status to sulfonamides; Z87.891 Personal history of nicotine dependence
CPT/HCPCS: 96372; 99282; A9270-GY; J1170

== ENCOUNTER 2017-05-27 16:17 | Emergency (ER) | payer OTHER ==
[2017-05-27 16:40] VITALS: BP 107/56
--- NOTE | 2017-05-27 16:53 | ED ---
Upper Extremity Pain - HPI Summary HPI Summary: 31F presents with right elbow and forearm pain since surgery with dr moore on 05/17/17. 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 She had chronic right arm pain for months before the surgery. She has been seen her multiple times for chronic pain. She has sensation in her fingers. she describes it as a burning pain. pain is 101/0 and takes tyenlol without relief. She has numbness or tingling that is chronic. splint on from elbow to wrist. She has follow up appointment next week. She states she fixed her ulnar nerve and that did scope on her wrist. She states she has had pain since the surgery. She states pain has been getting worst over past three days. She states by accident she has been bumping it on things. She states the area is very sensitive to touch. - History of Current Complaint Chief Complaint: EDExtremityUpper Stated Complaint: RT ARM PAIN Time Seen by Provider: 05/27/17 16:36 Hx Last Menstrual Period: 02/04/17 - Allergies/Home Medications Allergies/Adverse Reactions: Allergies Allergy/AdvReac Type Severity Reaction Status Date / Time Cephalexin [From Keflex] Allergy Severe Unknown Verified 05/17/17 08:10 Reaction Details Penicillins Allergy Severe hives, Verified 05/17/17 08:10 fever, rash Tramadol [From Ultram] Allergy Unknown Verified 05/17/17 08:10 Reaction Details Valproic Acid [From Depakote] Allergy Stomach Verified 05/17/17 08:10 Cramps Cyclobenzaprine AdvReac Severe increased Verified 05/17/17 08:10 [From Flexeril] depression, suicidal thoughts Metaxalone [From Skelaxin] AdvReac Severe increased Verified 05/17/17 08:10 depression, suicidal thoughts Clarithromycin [From Biaxin] AdvReac Nausea Verified 05/17/17 08:10 Clindamycin AdvReac Vomiting Verified 05/17/17 08:10 Doxycycline AdvReac Vomiting Verified 05/17/17 08:10 Meperidine [From Demerol HCl] AdvReac Vomiting Verified 05/17/17 08:10 Naproxen AdvReac GI Upset Verified 05/17/17 08:10 Sulfamethoxazole AdvReac Nausea Verified 05/17/17 08:10 w/Trimethoprim [From Bactrim] miracle whip Allergy Severe n/v, Uncoded 05/17/17 08:10 itchy. hives ragu spaghetti sauce Allergy Severe n/v, Uncoded 05/17/17 08:10 hives, itchiness MorphineIV Allergy Airway Uncoded 05/17/17 08:10 Obstruction Toradol IM Allergy Hives Uncoded 05/17/17 08:10 PMH/Surg Hx/FS Hx/Imm Hx Endocrine/Hematology History: Denies: Hx Diabetes Cardiovascular History: Reports: Hx Syncope, Other Cardiovascular Problems/ Disorders - low blood pressure Denies: Hx Hypertension, Hx Pacemaker/ICD Respiratory History: Reports: Other Respiratory Problems/Disorders - insomnia Denies: Hx Asthma, Hx Chronic Obstructive Pulmonary Disease (COPD) GI History: Reports: Hx Gastroesophageal Reflux Disease - on med, Hx Irritable Bowel, Hx Ulcer - stomach ulcers and an ulcer in esophagus History: Denies: Hx Dialysis, Hx Renal Disease Musculoskeletal History: Reports: Hx Back Problems, Hx Orthopedic Injury, Other Musculoskeletal History - reports multiple fractures in past, chronic right arm pain and injury/ulnar Denies: Hx Rheumatoid Arthritis Sensory History: Reports: Hx Contacts or Glasses - glasses for driving Denies: Hx Cataracts, Hx Hearing Aid Opthamlomology History: Reports: Hx Contacts or Glasses - glasses for driving Denies: Hx Cataracts Neurological History: Reports: Hx Migraine - on med prn, Other Neuro Impairments /Disorders - reports she has a pituitary adenoma Psychiatric History: Reports: Hx Anxiety, Hx Depression, Hx Community Mental Health Tx - seen prior at [facility] in 2013 Denies: Hx Eating Disorder, Hx Panic Disorder, Hx Inpatient Treatment - no known, Hx of Violent Episodes Against Others, Hx Substance Abuse - Surgical History Surgery Procedure, Year, and Place: tonsillectomy 1989 - . right ovarian cyst removed 2006 [facility] [place]. cholecyst[place] 2006 [facility] [place]. D&C 2006 - [facility] [place]. teeth extraction ( one in office and one at [facility] [place]). ear biopsy - 2014 - [facility] [place] Hx Anesthesia Reactions: No - Immunization History Immunizations Up to Date: Yes Infectious Disease History: No Infectious Disease History: Denies: Hx Clostridium Difficile, Hx Hepatitis, Hx Human Immunodeficiency Virus (HIV), Hx of Known/Suspected MRSA, Hx Shingles, Hx Tuberculosis, Hx Known/ Suspected VRE, Hx Known/Suspected VRSA, History Other Infectious Disease, Traveled Outside the [place] in Last 30 Days - Family History Known Family History: Positive: Cardiac Disease, Diabetes - Social History Alcohol Use: None Substance Use Type: Reports: Prescribed Substance Use Comment - Amount & Last Used: hx cannabis use Hx Tobacco Use: Yes Smoking Status (MU): Light Every Day Tobacco Smoker Type: Cigarettes Amount Used/How Often: 1 - 1 1/2 ppd for 15 years on and off Length of Time of Smoking/Using Tobacco: since 17yo Have You Smoked in the Last Year: Yes Review of Systems Negative: Fever Negative: Chest Pain Negative: Shortness Of Breath Positive: Myalgia - right arm pain All Other Systems Reviewed And Are Negative: Yes Physical Exam Triage Information Reviewed: Yes Vital Signs On Initial Exam: Initial Vitals Temp Pulse Resp BP Pulse Ox 97.8 F 74 20 126/61 100 05/27/17 16:19 05/27/17 16:19 05/27/17 16:19 05/27/17 16:19 05/27/17 16:19 Vital Signs Reviewed: Yes Appearance: Positive: Pain Distress Skin: Positive: Other - small incision on right volvar area with sutures in place, larger incision near ulnar right that is clean dry intact. mild ecchymosis around area. minimial edema present Head/Face: Positive: Normal Head/Face Inspection Eyes: Positive: Normal, Conjunctiva Clear Respiratory/Lung Sounds: Positive: Clear to Auscultation, Breath Sounds Present Cardiovascular: Positive: Normal, RRR Musculoskeletal: Positive: Other - splint on right lower arm, capillary refill< 2 secs, sensation grossly intact, full ROM fingers. good strength to fingers. removed splint and pulses good radial, sensation grossly intact throughout, Neurological: Positive: Sensory/Motor Intact - [place] Coma Scale Coma Scale Total: 15 Diagnostics - Vital Signs Vital Signs Temp Pulse Resp BP Pulse Ox 05/27/17 16:39 98.1 F 70 18 107/56 100 05/27/17 16:19 97.8 F 74 20 126/61 100 - Laboratory Lab Statement: Any lab studies that have been ordered have been reviewed, and results considered in the medical decision making process. Course/Dx - Course Course Of Treatment: 31F presents with right elbow and forearm pain since surgery with dr moore on 05/17/17. 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 She had chronic right arm pain for months before the surgery. She has been seen her multiple times for chronic pain. She has sensation in her fingers. she describes it as a burning pain. pain is 101/0 and takes tyenlol without relief. She has numbness or tingling that is chronic. splint on from elbow to wrist. She has follow up appointment next week. She states she fixed her ulnar nerve and that did scope on her wrist. She states she has had pain since the surgery. She states pain has been getting worst over past three days. She states by accident she has been bumping it on things. She states the area is very sensitive to touch. patient is crying on exam but when leave the room she stops crying. she has full ROM of fingers, capillary refill< 2 secs, good pulses, sensation grossly intact. removed splint, and incision CTA. mild ecchymosis to area. minimial swelling, sensation grossly intact thoughout area. has generalized pain no specific compartment with severe pain. do not suspect compartment syndrome at this time. had dr mckoy evaulated patient and he agrees that patient is neurovascular intact. spoke with dr dejesus who recommends follow up with dr moore. replaced splint with volvar splint. patient states will not leave without pain medication. patient stormed out without discharge papers. - Diagnoses Differential Diagnosis/HQI/PQRI: Positive: Other - post surgery, compartment syndrome Provider Diagnoses: Right arm pain - Physician Notifications Discussed Care of Patient With: dr dejesus Time Discussed With Above Provider: 17:17 - have follow up with dr moore in clinic Discharge - Discharge Plan Condition: Good Disposition: HOME Referrals: Damon Moore MD [Medical Doctor] - Hernandez Rocha MD [Primary Care Provider] - Additional Instructions: You should call tomorrow for appointment with dr moore Take Tylenol every [address] ice on area Elevate Return to ED if develop any new or worsening symptoms
== END 2017-05-27 18:21 | disposition home or self-care (01) ==
LOC: ED 16:17
DX: M79.631 Pain in right forearm (principal); F17.210 Nicotine dependence, cigarettes, uncomplicated
CPT/HCPCS: 99281

== ENCOUNTER 2017-06-09 16:07 | Emergency (ER) | payer OTHER ==
[2017-06-09 16:35] VITALS: BP 117/66
[2017-06-09] MEDS ORDERED: HYDROcodone/ACETAMIN 5-325 MG* 1 TAB PO ONE (16:58)
[2017-06-09] MEDS ORDERED: Ibuprofen TAB* 600 MG PO ONE (16:58)
--- NOTE | 2017-06-09 17:20 | UC ---
Upper Extremity HPI - HPI Summary HPI Summary: Patient here for right arm pain after FOOSH one day ago. Reports pain over right wrist. Denies numbness or tingling. - History of Current Complaint Chief Complaint: UCUpperExtremity Stated Complaint: WRIST INJURY Time Seen by Provider: 06/09/17 16:53 Hx Obtained From: Patient Hx Last Menstrual Period: 05/15/17 Onset/Duration: Sudden Onset, Lasting Hours Character: Throbbing - Risk Factors Compartment Syndrome Risk Factors: Pain - Allergies/Home Medications Allergies/Adverse Reactions: Allergies Allergy/AdvReac Type Severity Reaction Status Date / Time Cephalexin [From Keflex] Allergy Severe Unknown Verified 06/09/17 16:35 Reaction Details Penicillins Allergy Severe hives, Verified 06/09/17 16:35 fever, rash Tramadol [From Ultram] Allergy Unknown Verified 06/09/17 16:35 Reaction Details Valproic Acid [From Depakote] Allergy Stomach Verified 06/09/17 16:35 Cramps Cyclobenzaprine AdvReac Severe increased Verified 06/09/17 16:35 [From Flexeril] depression, suicidal thoughts Metaxalone [From Skelaxin] AdvReac Severe increased Verified 06/09/17 16:35 depression, suicidal thoughts Clarithromycin [From Biaxin] AdvReac Nausea Verified 06/09/17 16:35 Clindamycin AdvReac Vomiting Verified 06/09/17 16:35 Doxycycline AdvReac Vomiting Verified 06/09/17 16:35 Meperidine [From Demerol HCl] AdvReac Vomiting Verified 06/09/17 16:35 Naproxen AdvReac GI Upset Verified 05/17/17 08:10 Sulfamethoxazole AdvReac Nausea Verified 05/17/17 08:10 w/Trimethoprim [From Bactrim] miracle whip Allergy Severe n/v, Uncoded 05/17/17 08:10 itchy. hives ragu spaghetti sauce Allergy Severe n/v, Uncoded 05/17/17 08:10 hives, itchiness MorphineIV Allergy Airway Uncoded 05/17/17 08:10 Obstruction Toradol IM Allergy Hives Uncoded 05/17/17 08:10 PMH/Surg Hx/FS Hx/Imm Hx - Surgical History Surgical History: Yes Surgery Procedure, Year, and Place: tonsillectomy 1989 - . right ovarian cyst removed 2006 [facility] [place]. cholecystectomy 2006 [facility] [place]. D&C 2006 [facility] [place]. teeth extraction ( one in office and one at [facility] [place]). ear biopsy - 2014 [facility] [place] - Family History Known Family History: Positive: Cardiac Disease, Diabetes - Social History Alcohol Use: None Substance Use Type: None Substance Use Comment - Amount & Last Used: hx cannabis use Smoking Status (MU): Light Every Day Tobacco Smoker Type: Cigarettes Amount Used/How Often: 2 sigarettes/day Length of Time of Smoking/Using Tobacco: since 17yo Have You Smoked in the Last Year: Yes When Did the Patient Quit Smoking/Using Tobacco: quit 2 weeks ago Household Exposure Type: Cigarettes - Immunization History Most Recent Influenza Vaccination: declined 2013 Most Recent Tetanus Shot: unsure Most Recent Pneumonia Vaccination: none Review of Systems Constitutional: Negative Skin: Negative Eyes: Negative ENT: Negative Respiratory: Negative Cardiovascular: Negative Gastrointestinal: Negative Genitourinary: Negative Motor: Negative Neurovascular: Negative Musculoskeletal: Negative, Other: - Right wrist with scars healing No deformity Intact radial pulse SILT in R/U/M Unable to assess motor exam due to pain Neurological: Negative Psychological: Negative All Other Systems Reviewed And Are Negative: Yes Physical Exam Triage Information Reviewed: Yes Vital Signs: Initial Vital Signs Temp 36.1 C 06/09/17 16:31 Pulse 81 06/09/17 16:31 Resp 16 06/09/17 16:31 BP 117/66 06/09/17 16:31 Pulse Ox 100 06/09/17 16:31 Upper Extremity Course/Dx - Course Course Of Treatment: Right wrist sprain. patient left AMA after pain meds and XR wrist ordered. Wanted stronger pain medications and wanted ED. - Differential Dx/Diagnosis Differential Diagnosis/HQI/PQRI: Strain, Sprain Provider Diagnoses: Malingering. Right arm pain Discharge - Discharge Plan Condition: Fair Disposition: AGAINST MEDICAL ADVICE Referrals: Hernandez Rocha MD [Primary Care Provider] -
== END 2017-06-09 17:15 | disposition left against medical advice (07) ==
LOC: UCEAST 16:07
DX: M25.531 Pain in right wrist (principal); Z88.6 Allergy status to analgesic agent; Z88.1 Allergy status to other antibiotic agents; Z88.5 Allergy status to narcotic agent; Z88.0 Allergy status to penicillin; Z88.2 Allergy status to sulfonamides; Z88.8 Allergy status to other drugs, medicaments and biological substances; Z90.49 Acquired absence of other specified parts of digestive tract; Z87.891 Personal history of nicotine dependence
CPT/HCPCS: 99212; G0463

== ENCOUNTER 2017-06-11 16:26 | Emergency (ER) | payer OTHER ==
[2017-06-11 16:34] VITALS: BP 126/70
[2017-06-11] MEDS ORDERED: HYDROcodone/ACETAMIN 5-325 MG* 1 TAB PO ONE ×2 (17:17→18:56)
--- NOTE | 2017-06-11 17:22 | UC ---
Upper Extremity HPI - HPI Summary HPI Summary: 32 YO WF s/p Right wrist and elbow surgery on 05/17 and re-injury by fall to right wrist 4 days ago p/w intractable right elbow, wrist and hand pain. Taking pain meds around the clock with tylenol 500 and Ibuprofen 800mg, has had pain control with hydrocodone/acetaminophen from 05/17 and 05/18 per [employer] site (5 then 3 day supply respectively for total of 50tabs but no scripts after 05/18). Pt states she came to UC 3 days ago but left without taking the [place] or the ordered XR and went to ER but never was seen by any provider and is back here today due to worsening intractable pain on her post-surgical site. - History of Current Complaint Chief Complaint: UCUpperExtremity Stated Complaint: ARM INJURY Time Seen by Provider: 06/11/17 16:52 Hx Obtained From: Patient Hx Last Menstrual Period: May 15, 2017 Onset/Duration: Sudden Onset, Lasting Days Severity Initially: Severe Severity Currently: Severe Pain Scale Used: 0-10 Numeric - 8/10 Location Of Pain: Is Discrete @ Character: Sharp, Throbbing Aggravating Factor(s): Movement Alleviating Factor(s): Nothing, Other: - refractory to tylenol 500 and ibuprofen 800 Associated Signs And Symptoms: Positive: Other - previous fall on outstretched hand - Risk Factors DVT Risk Factors: Recent Surgery, Recent Trauma - recent "nerve" surgery on right elbow and wrist on 05/17/2017 but fell on post-op arm 4 days ago which exacerbated pain, now intractable - Allergies/Home Medications Allergies/Adverse Reactions: Allergies Allergy/AdvReac Type Severity Reaction Status Date / Time Cephalexin [From Keflex] Allergy Severe Unknown Verified 06/11/17 16:35 Reaction Details Penicillins Allergy Severe hives, Verified 06/11/17 16:35 fever, rash Tramadol [From Ultram] Allergy Unknown Verified 06/11/17 16:35 Reaction Details Valproic Acid [From Depakote] Allergy Stomach Verified 06/11/17 16:35 Cramps Cyclobenzaprine AdvReac Severe increased Verified 06/11/17 16:35 [From Flexeril] depression, suicidal thoughts Metaxalone [From Skelaxin] AdvReac Severe increased Verified 06/11/17 16:35 depression, suicidal thoughts Clarithromycin [From Biaxin] AdvReac Nausea Verified 06/11/17 16:35 Clindamycin AdvReac Vomiting Verified 06/11/17 16:35 Doxycycline AdvReac Vomiting Verified 06/11/17 16:35 Meperidine [From Demerol HCl] AdvReac Vomiting Verified 06/11/17 16:35 Naproxen AdvReac GI Upset Verified 06/11/17 16:35 Sulfamethoxazole AdvReac Nausea Verified 06/11/17 16:35 w/Trimethoprim [From Bactrim] miracle whip Allergy Severe n/v, Uncoded 06/11/17 16:35 itchy. hives ragu spaghetti sauce Allergy Severe n/v, Uncoded 06/11/17 16:35 hives, itchiness MorphineIV Allergy Airway Uncoded 06/11/17 16:35 Obstruction Toradol IM Allergy Hives Uncoded 06/11/17 16:35 PMH/Surg Hx/FS Hx/Imm Hx - Surgical History Surgical History: Yes Surgery Procedure, Year, and Place: Right wrist surgery 05/17/17. tonsillectomy 1989 [place]. right ovarian cyst removed 2006 [facility] [place]. cholecystectomy 2006 [facility] [place]. D&C 2006 [facility] [place]. teeth extraction ( one in office and one at [facility] [place]). ear biopsy - 2014 [facility] [place] - Family History Known Family History: Positive: Cardiac Disease, Diabetes - Social History Alcohol Use: None Substance Use Type: Other - on regular use of xanax and oxycodone PO from her PCP on a monthly basis Substance Use Comment - Amount & Last Used: hx cannabis use Smoking Status (MU): Light Every Day Tobacco Smoker Type: Cigarettes Amount Used/How Often: 2 sigarettes/day Length of Time of Smoking/Using Tobacco: since 17yo Have You Smoked in the Last Year: Yes When Did the Patient Quit Smoking/Using Tobacco: quit 2 weeks ago Household Exposure Type: Cigarettes - Immunization History Most Recent Influenza Vaccination: declined 2013 season Most Recent Tetanus Shot: unsure Most Recent Pneumonia Vaccination: none Review of Systems Constitutional: Negative Skin: Negative Eyes: Negative ENT: Negative Respiratory: Negative Cardiovascular: Negative Genitourinary: Negative Motor: Decreased ROM, Other Neurovascular: Negative Musculoskeletal: Decreased ROM, Other: - intractable pain to her right elbow, forearm and wrist Neurological: Negative All Other Systems Reviewed And Are Negative: Yes Physical Exam Triage Information Reviewed: Yes Appearance: Pain Distress Vital Signs: Initial Vital Signs Temp 37.2 C 06/11/17 16:29 Pulse 92 06/11/17 16:29 Resp 12 06/11/17 16:29 BP 126/70 06/11/17 16:29 Pulse Ox 99 06/11/17 16:29 Vital Signs Reviewed: Yes Eye Exam: Normal Eyes: Positive: Conjunctiva Clear ENT Exam: Normal ENT: Positive: Normal ENT inspection Respiratory Exam: Normal Cardiovascular Exam: Normal Cardiovascular: Positive: RRR Musculoskeletal: Positive: ROM Limited @, Other: - severe TTP and immobility to right hand, unable to oppose thumb to fingers due to pain, radiating to/from forearm and elbow Neurological: Positive: Alert Psychological: Positive: Other: - restricted affect, in severe pain Skin Exam: Normal Upper Extremity Course/Dx - Course Course Of Treatment: One dose of vicodin po administered in UC with improvement in pain. XR of elbow, wrist and hand neg for fx. - Differential Dx/Diagnosis Provider Diagnoses: RUE pain Discharge - Discharge Plan Condition: Stable Disposition: HOME Patient Education Materials: Pain Management After Surgery (GEN) Referrals: Hernandez Rocha MD [Primary Care Provider] - Additional Instructions: F/u with PCP or go to ER if pain worsens.
--- NOTE | 2017-06-11 18:03 | RAD ---
Indication: Fall, elbow injury. 4 views of the elbow demonstrates no definite fracture. No obvious joint effusion is noted. No definite soft tissue swelling is identified. IMPRESSION: No fracture of the elbow is noted. No definite joint effusion is identified.
--- NOTE | 2017-06-11 18:12 | RAD ---
Indication: Right hand pain and wrist pain. 4 views of the right elbow demonstrates no fracture. No other bone or joint abnormality is identified. IMPRESSION: No fracture of the right hand is noted.
== END 2017-06-11 19:20 | disposition home or self-care (01) ==
LOC: UCEAST 16:26
DX: M25.521 Pain in right elbow (principal); M79.631 Pain in right forearm; M25.531 Pain in right wrist; W19.XXXA Unspecified fall, initial encounter; Y93.9 Activity, unspecified; Y92.9 Unspecified place or not applicable; Y99.9 Unspecified external cause status; Z98.890 Other specified postprocedural states
CPT/HCPCS: 99213; G0463

== ENCOUNTER 2017-06-16 21:43 | Emergency (ER) | payer OTHER ==
[2017-06-16 21:54] VITALS: BP 133/85
[2017-06-16] MEDS ORDERED: Lidocaine 2% 10 ML* VIAL INJ ONE (23:33)
[2017-06-16] MEDS ORDERED: Azithromycin TAB* 250 MG PO ONE (23:40)
[2017-06-16] MEDS ORDERED: Lidocaine 2% PF * 5 ML VIAL ONE (23:42)
--- NOTE | 2017-06-16 23:59 | ED ---
Throat Pain/Nasal Congestion - HPI Summary HPI Summary: Patient LWBS She was not evaluated There is no ROS or PHYSICAL EXAM She LWBS prior to provider arrival into the room. - History of Current Complaint Chief Complaint: EDDentalPain Time Seen by Provider: 06/16/17 23:01 - Allergies/Home Medications Allergies/Adverse Reactions: Allergies Allergy/AdvReac Type Severity Reaction Status Date / Time Cephalexin [From Keflex] Allergy Severe Unknown Verified 06/11/17 16:35 Reaction Details Penicillins Allergy Severe hives, Verified 06/11/17 16:35 fever, rash Tramadol [From Ultram] Allergy Unknown Verified 06/11/17 16:35 Reaction Details Valproic Acid [From Depakote] Allergy Stomach Verified 06/11/17 16:35 Cramps Cyclobenzaprine AdvReac Severe increased Verified 06/11/17 16:35 [From Flexeril] depression, suicidal thoughts Metaxalone [From Skelaxin] AdvReac Severe increased Verified 06/11/17 16:35 depression, suicidal thoughts Clarithromycin [From Biaxin] AdvReac Nausea Verified 06/11/17 16:35 Clindamycin AdvReac Vomiting Verified 06/11/17 16:35 Doxycycline AdvReac Vomiting Verified 06/11/17 16:35 Meperidine [From Demerol HCl] AdvReac Vomiting Verified 06/11/17 16:35 Naproxen AdvReac GI Upset Verified 06/11/17 16:35 Sulfamethoxazole AdvReac Nausea Verified 06/11/17 16:35 w/Trimethoprim [From Bactrim] miracle whip Allergy Severe n/v, Uncoded 06/11/17 16:35 itchy. hives ragu spaghetti sauce Allergy Severe n/v, Uncoded 06/11/17 16:35 hives, itchiness MorphineIV Allergy Airway Uncoded 06/11/17 16:35 Obstruction Toradol IM Allergy Hives Uncoded 06/11/17 16:35 PMH/Surg Hx/FS Hx/Imm Hx Endocrine/Hematology History: Denies: Hx Diabetes Cardiovascular History: Reports: Hx Syncope, Other Cardiovascular Problems/ Disorders - low blood pressure Denies: Hx Hypertension, Hx Pacemaker/ICD Respiratory History: Reports: Other Respiratory Problems/Disorders - insomnia Denies: Hx Asthma, Hx Chronic Obstructive Pulmonary Disease (COPD) GI History: Reports: Hx Gastroesophageal Reflux Disease - on med, Hx Irritable Bowel, Hx Ulcer - stomach ulcers and an ulcer in esophagus History: Denies: Hx Dialysis, Hx Renal Disease Musculoskeletal History: Reports: Hx Back Problems, Hx Orthopedic Injury, Other Musculoskeletal History - reports multiple fractures in past, chronic right arm pain and injury/ulnar Denies: Hx Rheumatoid Arthritis Sensory History: Reports: Hx Contacts or Glasses - glasses for driving Denies: Hx Cataracts, Hx Hearing Aid Opthamlomology History: Reports: Hx Contacts or Glasses - glasses for driving Denies: Hx Cataracts Neurological History: Reports: Hx Migraine - on med prn, Other Neuro Impairments /Disorders - reports she has a pituitary adenoma Psychiatric History: Reports: Hx Anxiety, Hx Depression, Hx Community Mental Health Tx - [facility] Denies: Hx Eating Disorder, Hx Panic Disorder, Hx Inpatient Treatment - no known, Hx of Violent Episodes Against Others, Hx Substance Abuse - Surgical History Surgery Procedure, Year, and Place: Right wrist surgery 05/17/17. tonsillectomy 1989 [place]. right ovarian cyst removed 2006 [facility] [place]. cholecystectomy 2006 [facility] [place]. D&C 2006 - [facility] [place]. teeth extraction ( one in office and one at [facility] [place]). ear biopsy - 2014 [facility] [place] Hx Anesthesia Reactions: No Infectious Disease History: No Infectious Disease History: Denies: Hx Clostridium Difficile, Hx Hepatitis, Hx Human Immunodeficiency Virus (HIV), Hx of Known/Suspected MRSA, Hx Shingles, Hx Tuberculosis, Hx Known/ Suspected VRE, Hx Known/Suspected VRSA, History Other Infectious Disease, Traveled Outside the in Last 30 Days - Family History Known Family History: Positive: Cardiac Disease, Diabetes - Social History Alcohol Use: None Substance Use Type: Reports: Other Substance Use Comment - Amount & Last Used: hx cannabis use Hx Tobacco Use: Yes Smoking Status (MU): Light Every Day Tobacco Smoker Type: Cigarettes Amount Used/How Often: 2 sigarettes/day Length of Time of Smoking/Using Tobacco: since 17yo Have You Smoked in the Last Year: Yes Review of Systems All Other Systems Reviewed And Are Negative: No Physical Exam Vital Signs On Initial Exam: Initial Vitals Temp Pulse Resp BP Pulse Ox 97.5 F 99 18 133/85 97 06/16/17 21:49 06/16/17 21:49 06/16/17 21:49 06/16/17 21:49 06/16/17 21:49 - [place] Coma Scale Coma Scale Total: 15 Diagnostics - Vital Signs Vital Signs Temp Pulse Resp BP Pulse Ox 06/16/17 21:49 97.5 F 99 18 133/85 97 - Laboratory Lab Statement: Any lab studies that have been ordered have been reviewed, and results considered in the medical decision making process. EENT Course/Dx - Diagnoses Provider Diagnoses: Patient left without being seen Discharge - Discharge Plan Condition: Stable Disposition: LEFT WITHOUT BEING SEEN Referrals: Hernandez Rocha MD [Primary Care Provider] -
== END 2017-06-16 23:52 | disposition left against medical advice (07) ==
LOC: ED 21:43
DX: K08.89 Other specified disorders of teeth and supporting structures (principal); Z53.21 Procedure and treatment not carried out due to patient leaving prior to being seen by health care provider

== ENCOUNTER 2017-06-17 09:49 | Emergency (ER) | payer OTHER ==
[2017-06-17 09:56] VITALS: BP 104/68
[2017-06-17] MEDS ORDERED: Ondansetron INJ* 2 MG/ML VIAL IV ONE (10:15)
[2017-06-17] MEDS ORDERED: NS 0.9% 1000 ML* 1,000 ML IV ONE (10:17)
[2017-06-17] MEDS ORDERED: oxyCODONE TAB* 5 MG TAB PO ONE (10:18)
[2017-06-17 10:55] LABS: Hematocrit 38 % (35-47); Hemoglobin 12.7 g/dl (12.0-16.0); Mean Corpuscular HGB Conc 33 g/dl (31-36); Mean Corpuscular Hemoglobin 30 pg (27-31); Mean Corpuscular Volume 89 fL (80-97); Mean Platelet Volume 10 um3 (7.4-10.4); Red Blood Count 4.31 10^6/ul (4.0-5.4); Red Cell Distribution Width 14 % (10.5-15); White Blood Count 9.6 10^3/ul (3.5-10.8)
[2017-06-17] MEDS ORDERED: Clindamycin 300 MG IVPREMIX(* 300 MG/50 ML SDV IV SCH (11:00)
[2017-06-17 11:09] LABS: Albumin 3.6 g/dL (3.2-5.2); BUN/Creatinine Ratio 12.7 (8-20); C Reactive Protein 29.23 mg/L (< 5.00); Calcium 8.8 mg/dL (8.6-10.3); EGFR African American 141.7 (>60); EGFR Non-African American 110.2 (>60); Globulin 2.6 g/dL (2-4); Potassium 4.3 mmol/L (3.5-5.0); Total Bilirubin 0.8 mg/dL (0.2-1.0); Total Protein 6.2 g/dL (6.4-8.9)
[2017-06-17] MEDS ORDERED: Iohexol 300* (CONTRAST) 10 ML SDV IV ONE (11:25)
--- NOTE | 2017-06-17 11:59 | RAD ---
HISTORY: Facial swelling and pain COMPARISONS: None TECHNIQUE: Multiple contiguous axial CT scans were obtained of the face with intravenous contrast, with coronal and sagittal multiplanar reformations. FINDINGS: BONES: There is no displaced fracture or dislocation. The orbital rim is intact. The zygomatic arch is intact. The pterygoid plates are intact. ORBITS: The globes are round. The optic nerves are symmetric. The extraocular musculature is normal. There is no post septal or intraconal inflammatory change. There is no retrobulbar hematoma. PARANASAL SINUSES: There is mucosal thickening of the maxillary sinuses bilaterally with air-fluid levels bilaterally. BRAIN AND SOFT TISSUE: There is stranding of the calcaneus fat and thickening of the platysma fascia along the left mandible. There is no loculated fluid collection. OTHER: There is extensive carious disease with mild periapical lucency along the left mandible. There are no areas of abnormal enhancement. IMPRESSION: 1. EXTENSIVE SOFT TISSUE SWELLING ALONG THE LEFT MANDIBLE CONSISTENT WITH CELLULITIS. THERE IS NO LOCULATED FLUID COLLECTION TO SUGGEST ABSCESS. 2. THERE IS EXTENSIVE CARIOUS DISEASE SUGGESTIVE OF AN ODONTOGENIC INFECTION. 3. MILD SINUS MUCOSAL INFLAMMATORY DISEASE, WITH AIR-FLUID LEVELS IN THE MAXILLARY SINUSES BILATERALLY. IN THE CORRECT CLINICAL SETTING, THIS MAY REPRESENT ACUTE SINUSITIS
--- NOTE | 2017-06-18 09:26 | ED ---
Edmund Trevizo Angela, scribed for Jon Arce MD on 06/17/17 at 1010 . Throat Pain/Nasal Congestion - HPI Summary HPI Summary: This pt is a 32 y/o female presenting to [facility] c/o left sided facial swelling since this morning. Pt reports she had severe dental pain yesterday and came to the ED. She notes she left the ED before being seen by a provider. Pt states that this morning she woke up with sudden onset of facial swelling. Pt additionally c/o persistent dental pain. She denies any trouble swallowing, swelling of the tongue, SOB. Pt notes she has not seen a dentist due to insurance problems. - History of Current Complaint Chief Complaint: EDDentalPain Time Seen by Provider: 06/17/17 10:04 Hx Obtained From: Patient Onset/Duration: Lasting Hours, Still Present Associated Signs And Symptoms: Positive: Negative Cough: None - Allergies/Home Medications Allergies/Adverse Reactions: Allergies Allergy/AdvReac Type Severity Reaction Status Date / Time Cephalexin [From Keflex] Allergy Severe Unknown Verified 06/11/17 16:35 Reaction Details Penicillins Allergy Severe hives, Verified 06/11/17 16:35 fever, rash Tramadol [From Ultram] Allergy Unknown Verified 06/11/17 16:35 Reaction Details Valproic Acid [From Depakote] Allergy Stomach Verified 06/11/17 16:35 Cramps Cyclobenzaprine AdvReac Severe increased Verified 06/11/17 16:35 [From Flexeril] depression, suicidal thoughts Metaxalone [From Skelaxin] AdvReac Severe increased Verified 06/11/17 16:35 depression, suicidal thoughts Clarithromycin [From Biaxin] AdvReac Nausea Verified 06/11/17 16:35 Clindamycin AdvReac Vomiting Verified 06/11/17 16:35 Doxycycline AdvReac Vomiting Verified 06/11/17 16:35 Meperidine [From Demerol HCl] AdvReac Vomiting Verified 06/11/17 16:35 Naproxen AdvReac GI Upset Verified 06/11/17 16:35 Sulfamethoxazole AdvReac Nausea Verified 06/11/17 16:35 w/Trimethoprim [From Bactrim] miracle whip Allergy Severe n/v, Uncoded 06/11/17 16:35 itchy. hives ragu spaghetti sauce Allergy Severe n/v, Uncoded 06/11/17 16:35 hives, itchiness MorphineIV Allergy Airway Uncoded 06/11/17 16:35 Obstruction Toradol IM Allergy Hives Uncoded 06/11/17 16:35 PMH/Surg Hx/FS Hx/Imm Hx Endocrine/Hematology History: Denies: Hx Diabetes Cardiovascular History: Reports: Hx Syncope, Other Cardiovascular Problems/ Disorders - low blood pressure Denies: Hx Hypertension, Hx Pacemaker/ICD Respiratory History: Reports: Other Respiratory Problems/Disorders - insomnia Denies: Hx Asthma, Hx Chronic Obstructive Pulmonary Disease (COPD) GI History: Reports: Hx Gastroesophageal Reflux Disease - on med, Hx Irritable Bowel, Hx Ulcer - stomach ulcers and an ulcer in esophagus History: Denies: Hx Dialysis, Hx Renal Disease Musculoskeletal History: Reports: Hx Back Problems, Hx Orthopedic Injury, Other Musculoskeletal History - reports multiple fractures in past, chronic right arm pain and injury/ulnar Denies: Hx Rheumatoid Arthritis Sensory History: Reports: Hx Contacts or Glasses - glasses for driving Denies: Hx Cataracts Opthamlomology History: Reports: Hx Contacts or Glasses - glasses for driving Denies: Hx Cataracts Neurological History: Reports: Hx Migraine - on med prn, Other Neuro Impairments /Disorders - reports she has a pituitary adenoma Psychiatric History: Reports: Hx Anxiety, Hx Depression, Hx Community Mental Health Tx - seen prior at [facility] in 2013 Denies: Hx Eating Disorder, Hx Panic Disorder, Hx Inpatient Treatment - no known, Hx of Violent Episodes Against Others, Hx Substance Abuse - Surgical History Surgery Procedure, Year, and Place: Right wrist surgery 05/17/17. tonsillectomy 1989. right ovarian cyst removed 2006 [facility] [place]. cholecystectomy 2006 [facility] [place]. D&C 2006 - [facility] [place]. teeth extraction ( one in office and one at [facility] [place]). ear biopsy - 2014 [facility] [place] Hx Anesthesia Reactions: No Infectious Disease History: No Infectious Disease History: Denies: Hx Clostridium Difficile, Hx Hepatitis, Hx Human Immunodeficiency Virus (HIV), Hx of Known/Suspected MRSA, Hx Shingles, Hx Tuberculosis, Hx Known/ Suspected VRE, Hx Known/Suspected VRSA, History Other Infectious Disease, Traveled Outside the [place] in Last 30 Days - Family History Known Family History: Positive: Cardiac Disease, Diabetes - Social History Alcohol Use: None Substance Use Type: Reports: Other Substance Use Comment - Amount & Last Used: hx cannabis use Hx Tobacco Use: Yes Smoking Status (MU): Light Every Day Tobacco Smoker Type: Cigarettes Amount Used/How Often: 2 sigarettes/day Length of Time of Smoking/Using Tobacco: since 17yo Have You Smoked in the Last Year: Yes Review of Systems Negative: Fever, Chills ENT: Other - facial swelling Positive: Dental Pain. Negative: Other - trouble swallowing, tongue swelling Cardiovascular: Negative Respiratory: Negative Negative: Shortness Of Breath Musculoskeletal: Negative Skin: Negative Neurological: Negative All Other Systems Reviewed And Are Negative: Yes Physical Exam - Summary Physical Exam Summary: VITAL SIGNS: Reviewed. GENERAL: Patient is a well-developed and nourished female. Patient is not in any acute respiratory distress. HEAD AND FACE: No signs of trauma. No ecchymosis, hematomas or skull depressions. No sinus tenderness. Pt has facial swelling. No trismus. No swelling of the tongue or lips. EYES: PERRLA, EOMI x 2, No injected conjunctiva, no nystagmus. EARS: Hearing grossly intact. Ear canals and tympanic membranes are within normal limits. MOUTH: Oropharynx within normal limits. NECK: Supple, trachea is midline, no adenopathy, no JVD, no carotid bruit, no c- spine tenderness, neck with full ROM. CHEST: Symmetric, no tenderness at palpation LUNGS: Clear to auscultation bilaterally. No wheezing or crackles. CVS: Regular rate and rhythm, S1 and S2 present, no murmurs or gallops appreciated. ABDOMEN: Soft, non-tender. No signs of distention. No rebound no guarding, and no masses palpated. Bowel sounds are normal. EXTREMITIES: FROM in all major joints, no edema, no cyanosis or clubbing. NEURO: Alert and oriented x 3. No acute neurological deficits. Speech is normal and follows commands. SKIN: Dry and warm Triage Information Reviewed: Yes Vital Signs On Initial Exam: Initial Vitals Temp Pulse Resp BP Pulse Ox 97.8 F 79 22 104/68 100 06/17/17 09:52 06/17/17 09:52 06/17/17 09:52 06/17/17 09:52 06/17/17 09:52 Vital Signs Reviewed: Yes Diagnostics - Vital Signs Vital Signs Temp Pulse Resp BP Pulse Ox 06/17/17 09:52 97.8 F 79 22 104/68 100 - Laboratory Result Diagrams: 06/17/17 10:45 06/17/17 10:45 Lab Statement: Any lab studies that have been ordered have been reviewed, and results considered in the medical decision making process. - CT Maxillofacial CT CT Interpretation: Positive (See Comments) - IMPRESSION: 1. Extensive soft tissue swelling along the left mandible consistent with cellulitis there is no loculated fluid collection to suggest abscess. 2. There is extensive carious disease suggestive of an odontogenic infection. 3. Mild sinus mucosal inflammatory disease with air-fluid levels in the maxillary sinuses bilaterally. In the correct clinical setting, this may represent acute sinusitis. ED physician has reviewed this radiology report and agrees. CT Interpretation Completed By: Radiologist EENT Course/Dx - Course Assessment/Plan: This pt is a 32 y/o female presenting to [facility] c/o left sided facial swelling since this morning. Pt reports she had severe dental pain yesterday and came to the ED. She notes she left the ED before being seen by a provider. Pt states that this morning she woke up with sudden onset of facial swelling. Pt additionally c/o persistent dental pain. She denies any trouble swallowing, swelling of the tongue, SOB. Pt notes she has not seen a dentist due to insurance problems. Test results without any significant abnormalities except for CRP of 29.2. Maxillofacial CT shows 1. Extensive soft tissue swelling along the left mandible consistent with cellulitis there is no loculated fluid collection to suggest abscess. 2. There is extensive carious disease suggestive of an odontogenic infection. 3. Mild sinus mucosal inflammatory disease with air-fluid levels in the maxillary sinuses bilaterally. In the correct clinical setting, this may represent acute sinusitis. In the ED course, we reviewed her allergies and it seems the pt is allergic to most antibiotics. She is able to take clindamycin because she only gets nauseous with this antibiotic. Therefore, she was given IV clindamycin, IV fluids, Zofran, and oxycodone for the pain. After these medications the symptoms improved. She will be discharged home with follow up from a dentist ( for which she was given a referral). Pt is able to swallow, has no trismus, no lip or tongue swelling. She was given a prescription for clindamycin and oxycodone. - Diagnoses Provider Diagnoses: Pain, dental, Dental decay, Cellulitis Discharge - Discharge Plan Condition: Stable Disposition: HOME Prescriptions: Clindamycin HCl [Clindamycin 150 MG CAP*] 150 mg PO QID #40 cap Ondansetron TAB* [Zofran 4 MG Tab*] 4 mg PO Q6H PRN #16 tab PRN Reason: Vomiting oxyCODONE TAB* [Roxycodone TAB 5 mg*] 5 mg PO Q6H PRN #10 tab MDD 4 PRN Reason: Pain Patient Education Materials: Cavity Preventive (For the teeth or gums), Cellulitis (ED), Toothache (ED) Referrals: Hernandez Rocha MD [Primary Care Provider] - Additional Instructions: Please follow up with a dentist as soon as possible. Attached is a referral for a dentist. RETURN TO THE ED FOR ANY WORSENING OR NEW SYMPTOMS. The documentation as recorded by the Edmund whittaker Angela accurately reflects the service I personally performed and the decisions made by Claude allen Walter, MD.
== END 2017-06-17 13:07 | disposition home or self-care (01) ==
LOC: ED 09:49
DX: K08.89 Other specified disorders of teeth and supporting structures (principal); K02.9 Dental caries, unspecified; K12.2 Cellulitis and abscess of mouth; F17.210 Nicotine dependence, cigarettes, uncomplicated
CPT/HCPCS: 36415; 70487; 80053; 85025; 86140; 96360; 96374; 96375; 99282; A9270-GY; J2405; Q9967

== ENCOUNTER 2017-06-18 22:39 | Emergency (ER) | payer OTHER ==
[2017-06-18 23:05] VITALS: BP 129/74
[2017-06-19 01:04] LABS: Hematocrit 36 % (35-47); Mean Corpuscular HGB Conc 33 g/dl (31-36); Mean Corpuscular Hemoglobin 30 pg (27-31); Mean Corpuscular Volume 89 fL (80-97); Mean Platelet Volume 10 um3 (7.4-10.4); Red Blood Count 4.06 10^6/ul (4.0-5.4); Red Cell Distribution Width 14 % (10.5-15); White Blood Count 12.7 10^3/ul (3.5-10.8)
[2017-06-19] MEDS ORDERED: Acetaminophen TAB* 325 MG PO ONE (01:16)
[2017-06-19] MEDS ORDERED: Morphine INJ* 2 MG/ML 1 ML CARPUJECT IV ONE (01:16)
[2017-06-19] MEDS ORDERED: Morphine INJ* 2 MG/ML 1 ML SYRINGE (TWO MG - NEW SYRINGE VERSION) IV ONE (02:15)
[2017-06-19 02:59] LABS: Benzodiazepine Urine Screen None Detected (None Detect)
[2017-06-19] MEDS ORDERED: Ketorolac INJ* 30 MG/ML 1 ML VIAL IV PUSH ONE (03:14)
[2017-06-19] MEDS ORDERED: Clindamycin 600 MG IVPREMIX(* 600 MG/50 ML SDV IV ONE (03:14)
[2017-06-19] MEDS ORDERED: Ketorolac INJ* 30 MG/ML 1 ML VIAL ONE (03:15)
[2017-06-21 14:37] LABS: Urine Tetrahydrocannabinol Negative ng/mL (Cutoff: 50)
[2017-06-28 10:17] LABS: Naloxone Confirm, Urine Negative ng/mL (Cutoff: 25); Norhydrocodone Confirm, Urine 24731 ng/mL (Cutoff: 25); Noroxycodone Confirm, Urine Negative ng/mL (Cutoff: 25); Noroxymorphone Confirm, Urine 233 ng/mL (Cutoff: 25); Opiates Interpretation, Urine Positive.; Oxycodone Confirm, Urine Negative ng/mL (Cutoff: 25); Oxymorphone Confirm, Urine 1327 ng/mL (Cutoff: 25)
== END 2017-06-21 13:00 | disposition short-term general hospital (02) ==
LOC: ED 22:39
DX: R60.9 Edema, unspecified (principal); Z53.21 Procedure and treatment not carried out due to patient leaving prior to being seen by health care provider
CPT/HCPCS: 36415; 80307; 80361; 80365; 85025; 99283; A9270-GY; G0480; J1885; J2270

== ENCOUNTER 2017-06-19 13:24 | Inpatient (IN) | payer OTHER ==
[2017-06-19] MEDS ORDERED: Ondansetron INJ* 2 MG/ML VIAL IV ONE (13:50)
[2017-06-19] MEDS ORDERED: Ondansetron INJ* 2 MG/ML VIAL IV PRN (14:28)
[2017-06-19] MEDS ORDERED: NS 0.9% 1000 ML* 1,000 ML IV SCH (14:30)
[2017-06-19] MEDS: NS 0.9% 1000 ML* 2,000 ML IV ONE ×2 (14:34→14:35)
[2017-06-19 14:51] LABS: Hematocrit 36 % (35-47); Hemoglobin 11.9 g/dl (12.0-16.0); Mean Corpuscular HGB Conc 34 g/dl (31-36); Mean Corpuscular Hemoglobin 30 pg (27-31); Mean Corpuscular Volume 88 fL (80-97); Mean Platelet Volume 10 um3 (7.4-10.4); Red Blood Count 4.02 10^6/ul (4.0-5.4); Red Cell Distribution Width 14 % (10.5-15); White Blood Count 11.4 10^3/ul (3.5-10.8)
[2017-06-19] MEDS ORDERED: metroNIDAZOLE IV 500 MG/100ML* 500 MG/100 ML BAG IVPB SCH (15:00)
[2017-06-19 15:06] LABS: Albumin 4.1 g/dL (3.2-5.2); BUN/Creatinine Ratio 9.9 (8-20); Calcium 9.2 mg/dL (8.6-10.3); EGFR African American 123.5 (>60); Globulin 3.2 g/dL (2-4); Potassium 3.5 mmol/L (3.5-5.0); Total Bilirubin 0.5 mg/dL (0.2-1.0); Total Protein 7.3 g/dL (6.4-8.9)
[2017-06-19] MEDS: Chlorhexidine MOUTHWASH 0.12%* 15 ML UDC SWISH SPIT SCH ×3 (15:47→21:58)
[2017-06-19] MEDS: HYDROmorphone INJ* 2 MG/ML CARPUJECT SYRINGE IV SLOW PU PRN ×2 (15:51→20:46)
[2017-06-19] MEDS: Clindamycin 600 MG IVPREMIX(* 600 MG/50 ML SDV IV SCH ×2 (16:08→23:45)
[2017-06-19] MEDS: oxyCODONE TAB* 5 MG TAB PO PRN (17:49)
[2017-06-19 18:51] LABS: Hematocrit 32 % (35-47); Hemoglobin 10.7 g/dl (12.0-16.0)
[2017-06-19] MEDS: Ibuprofen ADULT LIQ* 600 MG/30 ML UDC PO PRN (19:37)
--- NOTE | 2017-06-19 19:43 | ED ---
Grace Trevizo Jason, scribed for Dax Skinner MD on 06/19/17 at 1354 . Complex/Multi-Sys Presentation - HPI Summary HPI Summary: This patient is a 32 year old F presenting to [facility] with a chief complaint of dental pain since today. The patient reports that she was at [facility] this morning and left AMA when she was admitted due to her dental/facial infection. The patient describes having spit out greenish blood out of her mouth and experiencing increasing pain after leaving [facility]. The patient rates the pain 8/ 10 in severity. Symptoms aggravated by nothing. Symptoms alleviated by nothing. - History Of Current Complaint Chief Complaint: EDDentalPain Time Seen by Provider: 06/19/17 13:35 Hx Obtained From: Patient Onset/Duration: Gradual Onset, Lasting Hours - since today, Still Present Timing: Constant Aggravating Factor(s): nothing Alleviating Factor(s): nothing Associated Signs And Symptoms: Positive: Other - left sided facial swelling, dental pain, nausea - Allergies/Home Medications Allergies/Adverse Reactions: Allergies Allergy/AdvReac Type Severity Reaction Status Date / Time Cephalexin [From Keflex] Allergy Severe Unknown Verified 06/11/17 16:35 Reaction Details Penicillins Allergy Severe hives, Verified 06/11/17 16:35 fever, rash Tramadol [From Ultram] Allergy Unknown Verified 06/11/17 16:35 Reaction Details Cyclobenzaprine AdvReac Severe increased Verified 06/11/17 16:35 [From Flexeril] depression, suicidal thoughts Metaxalone [From Skelaxin] AdvReac Severe increased Verified 06/11/17 16:35 depression, suicidal thoughts Clarithromycin [From Biaxin] AdvReac Nausea Verified 06/11/17 16:35 Clindamycin AdvReac Vomiting Verified 06/11/17 16:35 Doxycycline AdvReac Vomiting Verified 06/11/17 16:35 Meperidine [From Demerol HCl] AdvReac Vomiting Verified 06/11/17 16:35 Naproxen AdvReac GI Upset Verified 06/11/17 16:35 Sulfamethoxazole AdvReac Nausea Verified 06/11/17 16:35 w/Trimethoprim [From Bactrim] Valproic Acid [From Depakote] AdvReac Stomach Verified 06/19/17 03:07 Cramps miracle whip Allergy Severe n/v, Uncoded 06/11/17 16:35 itchy. hives MorphineIV Allergy Severe Airway Uncoded 06/19/17 03:07 Obstruction ragu spaghetti sauce Allergy Severe n/v, Uncoded 06/11/17 16:35 hives, itchiness Toradol IM Allergy Hives Uncoded 06/11/17 16:35 PMH/Surg Hx/FS Hx/Imm Hx Previously Healthy: No Endocrine/Hematology History: Denies: Hx Diabetes Cardiovascular History: Reports: Hx Syncope, Other Cardiovascular Problems/ Disorders - low blood pressure Denies: Hx Hypertension, Hx Pacemaker/ICD Respiratory History: Reports: Other Respiratory Problems/Disorders - insomnia Denies: Hx Asthma, Hx Chronic Obstructive Pulmonary Disease (COPD) GI History: Reports: Hx Gastroesophageal Reflux Disease - on med, Hx Irritable Bowel, Hx Ulcer - stomach ulcers and an ulcer in esophagus History: Denies: Hx Dialysis, Hx Renal Disease Musculoskeletal History: Reports: Hx Back Problems, Hx Orthopedic Injury, Other Musculoskeletal History - reports multiple fractures in past, chronic right arm pain and injury/ulnar Denies: Hx Rheumatoid Arthritis Sensory History: Reports: Hx Contacts or Glasses - glasses for driving Denies: Hx Cataracts Opthamlomology History: Reports: Hx Contacts or Glasses - glasses for driving Denies: Hx Cataracts Neurological History: Reports: Hx Migraine - on med prn, Other Neuro Impairments /Disorders - reports she has a pituitary adenoma Psychiatric History: Reports: Hx Anxiety, Hx Depression, Hx Community Mental Health Tx - seen prior at [facility] in 2013 Denies: Hx Eating Disorder, Hx Panic Disorder, Hx Inpatient Treatment - no known, Hx of Violent Episodes Against Others, Hx Substance Abuse - Surgical History Surgery Procedure, Year, and Place: Right wrist surgery 05/17/17. tonsillectomy 1989. right [place] [facility] [place] [facility] [place] [facility] [place] ( one in office [place] [facility] [place] [facility] [place]x Anesthesia Reactions: No Infectious Disease History: No Infectious Disease History: Denies: Hx Clostridium Difficile, Hx Hepatitis, Hx Human Immunodeficiency Virus (HIV), Hx of Known/Suspected MRSA, Hx Shingles, Hx Tuberculosis, Hx Known/ Suspected VRE, Hx Known/Suspected VRSA, History Other Infectious Disease, Traveled Outside the [place] in Last 30 Days - Family History Known Family History: Positive: Cardiac Disease, Diabetes - Social History Alcohol Use: Rare Substance Use Type: Reports: None, Other Substance Use Comment - Amount & Last Used: hx cannabis use Hx Tobacco Use: Yes Smoking Status (MU): Light Every Day Tobacco Smoker Type: Cigarettes Amount Used/How Often: 2 sigarettes/day Length of Time of Smoking/Using Tobacco: since 17yo Have You Smoked in the Last Year: Yes Review of Systems Negative: Fever Positive: Dental Pain Positive: Nausea Positive: Other - left sided facial swelling All Other Systems Reviewed And Are Negative: Yes Physical Exam - Summary Physical Exam Summary: Appearance: The patient is well-nourished in no acute distress and in no acute pain. Skin: The skin is warm and dry and skin color reflects adequate perfusion. HEENT: ~The head is normocephalic and atraumatic. Left side of face is swollen. The pupils are equal and reactive. The conjunctivae are clear and without drainage. ~Nares are patent and without drainage. ~Mouth reveals moist mucous membranes and the throat is without erythema and exudate. ~The external ears are intact. The ear canals are patent and without drainage. The tympanic membranes are intact. Neck: There are no carotid bruits. ~There is no neck vein distension. Submandibular lymphadenopathy and neck is tender to palpation. Respiratory: Chest is non-tender. ~Lungs are clear to auscultation and breath sounds are symmetrical and equal. Cardiovascular: Heart is regular rate and rhythm. ~There is no murmur or rub auscultated. ~~There is no peripheral edema and pulses are symmetrical and equal. Abdomen: The abdomen is soft and non-tender. ~There are normal bowel sounds heard in all four quadrants and there is no organomegaly palpated. Musculoskeletal: There is no back tenderness noted. ~Extremities are non-tender with full range of motion. ~There is good capillary refill. ~There is no peripheral edema or calf tenderness elicited. Neurological: Patient is alert and oriented to person, place and time. ~The patient has symmetrical motor strength in all four extremities. ~Cranial nerves are grossly intact. Deep tendon reflexes are symmetrical and equal in all four extremities. Psychiatric: The patient has an appropriate affect and does not exhibit any anxiety or depression. Triage Information Reviewed: Yes Vital Signs On Initial Exam: Initial Vitals Temp Pulse Resp BP Pulse Ox 97.6 F 99 18 126/81 100 12/09/17 13:26 06/19/17 13:26 06/19/17 13:26 06/19/17 13:26 06/19/17 13:26 Vital Signs Reviewed: Yes Diagnostics - Vital Signs Vital Signs Temp Pulse Resp BP Pulse Ox 06/19/17 13:26 97.6 F 99 18 126/81 100 - Laboratory Result Diagrams: 06/19/17 18:45 06/19/17 14:30 Lab Statement: Any lab studies that have been ordered have been reviewed, and results considered in the medical decision making process. Complex Multi-Symp Course/Dx Course Of Treatment: Ms. Galvan returned this afternoon after signing out earlier this AM. She was diagnosed with facial cellulitis of orthodontic origen a couple of days ago and started on PO antibiotics and pain meds. She continued to get worse and was seen by the hospitalist for admission durng the night. About an hour prior to coming back, she suddenly felt very much worse and comes in C/O feeling 'awful'. She was given a second IV dose of clindamycin and IV NS and is beiong admitted to the hospitalist service. - Diagnoses Provider Diagnoses: Sinusitis, Facial cellulitis Discharge - Discharge Plan Condition: Stable Disposition: ADMITTED TO [facility] The documentation as recorded by the Grace whittaker Jason accurately reflects the service I personally performed and the decisions made by me, Dax Skinner MD.
--- NOTE | 2017-06-20 01:26 | HP ---
CC: Dr. Rocha * HISTORY AND PHYSICAL: DATE OF ADMISSION: 06/19/17 PRIMARY CARE PROVIDER: Dr. Rocha. ATTENDING PHYSICIAN WHILE IN THE HOSPITAL: Kassi Schreiber MD * (report dictated by Delano Barriga NP) CHIEF COMPLAINT: 1. Left facial swelling. 2. Left dental pain. HISTORY OF PRESENT ILLNESS: Mrs. Galvan is a 32-year-old female patient, who has been evaluated in the ED now, this is her fourth visit for her left facial swelling and pain. She initially was seen here on the . She was started on p.o. antibiotics and p.o. pain pills and was instructed to come back. She came back yesterday twice, both times leaving against medical advice and then came back again today and she felt that the things were not getting better. She felt remorseful that she had made a mistake and that she would need IV antibiotics. Apparently this infection started about 4 to 5 days ago in one of her teeth in the left molar area and since then she has had pain and then swelling along her jaw on the left side and then swelling around this, radiated up into the preauricular area and then down her left neck. She says that the size of the swelling has increased significantly and that she has been having a significant amount of discomfort. She says that the only time she has gotten antibiotics was when she has been here in the ER. She has not been taking them consistently. There has been no reports of fevers. She does admit to having some chills and feeling warm. She denied having any abdominal pain. She says the clindamycin is making her nauseous, which is a common side effect she experiences with this drug and she has vomited. She does admit that today she felt something open up and she had some green discoloration come out and some blood came out of her mouth. She is unsure if she vomited this or not. She denied having any abdominal pain or any chest pain, and she denied having any shortness of breath. She was concerned now because the symptoms were not getting any better, has been signing out AMA last night and her pain was not well controlled, so she came into the ED today to be evaluated. She was evaluated by Dr. Skinner, because of the again worsening of this infection we were asked to evaluate for admission. PAST MEDICAL HISTORY: Significant for: 1. Migraines. 2. Pituitary adenoma. PAST SURGICAL HISTORY: 1. She has had a D and C. 2. She has had a laparoscopic cholecystectomy. 3. She has had a tonsillectomy. 4. She has had ulnar nerve release and carpal tunnel release. 5. She has had cystoscopy. MEDICATIONS: Her home meds according to her recall include: 1. Oxycodone 5 mg every 6 hours as needed. 2. Benadryl 1 to 2 tablets p.o. as needed. 3. Zofran 4 mg every 6 hours as needed. 4. Omeprazole 40 mg p.o. daily as needed. 5. Imitrex 1 tablet p.o. daily as needed. 6. Ibuprofen 800 mg every 6 hours. 7. Clindamycin 150 mg p.o. q.i.d. 8. Excedrin Migraine 2 tablets daily as needed. 9. Tylenol Extra Strength 1000 mg p.o. every 6 hours as needed. ALLERGIES TO MEDICATIONS: Include KEFLEX, PENICILLIN, ULTRAM, FLEXERIL, SKELAXIN, BIAXIN, CLINDAMYCIN, again that she gets vomiting. She has allergy to DOXYCYCLINE, DEMEROL, NAPROXEN, BACTRIM, VALPROIC ACID,MORPHINE, and TORADOL. FAMILY HISTORY: She specifically denied having any coronary artery disease, diabetes, or any cancers. SOCIAL HISTORY: She is about a pack a day smoker for about 15 years. She does not drink alcohol. She denied drug use. REVIEW OF SYSTEMS: She denied having any documented fevers. She denied any significant weight change. She denies having any ear discharge. There was no rhinorrhea, no sore throat, no thyroid enlargement. She denied having any chest pain, no orthopnea, no nocturnal dyspnea. There was no abdominal pain. There was some nausea and vomiting. No dysuria, no frequency, no seizure, no loss of consciousness, no pruritus, and no skin ulcerations. Review of 14 systems completed, all others negative. PHYSICAL EXAMINATION GENERAL: At this time, Mrs. Lucero is a 32-year-old female patient. She is sitting in the ER stretcher. She does not appear to be in any acute distress. VITAL SIGNS: Blood pressure 126/81, pulse 99, respirations 18, O2 sat 100%, temperature 97.6. HEENT: Head: Atraumatic. Eyes: Sclerae are anicteric, not pale. Throat: Oral mucosa appears to be moist. No oropharyngeal erythema. NECK: Supple. LUNGS: Clear to auscultation bilaterally. No wheezes, rales, or rhonchi. HEART: Sounds S1, S2. Regular rate and rhythm. No murmurs, rubs, or gallops. ABDOMEN: Soft, flat, and nontender. Bowel sounds are present. EXTREMITIES: Pulses were 2+ throughout. No peripheral edema. NEUROLOGICAL: She is awake, alert, and oriented x3. No gross focal deficits. SKIN: Intact. She does have an area of erythema and swelling around the left mandible and up into the preauricular space. She is tender. She has some adenopathy noted down on the left side in the left deep cervical chain. She does have tenderness areas as well and she in the mouth has a very poor dentition. The back left-sided molar does appear to have a significant cavity there. DIAGNOSTIC STUDIES/LAB DATA: The labs from earlier today, WBC of 12.7, RBC of 4.06, hemoglobin 12.6, hematocrit 36, platelet count of 264. Chemistries: Sodium 138, potassium 4.3, chloride 106, bicarb 26, BUN 8, creatinine of 0.63, glucose of 89. She did have a maxillofacial CT done just 2 days ago, impression: Extensive soft tissue swelling along the left mandible consistent with cellulitis. There is no loculated fluid collection to suggest abscess. There is extensive caries disease suggestive of an odontogenic infection, and she has mild sinus mucosal inflammatory disease with air fluid levels in the maxillary sinus bilaterally, may represent acute sinusitis. Old medical records were reviewed. ASSESSMENT AND PLAN: Mrs. Galvan is a 32-year-old female patient coming into the ED today with complaints of worsening left facial pain and swelling, who has been on outpatient p.o. antibiotics and had been failing. We were asked to evaluate for admission. She will be admitted under inpatient status for. 1. Left-sided facial cellulitis and dental infection. At this point, we will place the patient on clindamycin 600 mg every 8 hours with chlorhexidine mouthwashes every 4 hours. I also will put the patient on ibuprofen, oxycodone , and p.r.n. Dilaudid for pain and we will continue to follow. 2. Migraines. She has p.r.n. Tylenol available. 3. History of pituitary adenoma. We will need to get her setup with an credit products officer. She can set to follow this up with her primary. 4. DVT prophylaxis. She is low risk and she will be placed on SCDs. 5. Fluids, electrolytes, and nutrition. She can have a regular diet. 6. Code status: Full code. TIME SPENT: On this admission is 60 minutes, greater than half of the time spent [id number] with the patient, obtaining my history and physical, other half time spent going over the plan of care with the patient and implementing plan of care. I did discuss plan of care with my attending, Dr. Schreiber; she is in agreement. DELANO BARRIGA, JANETH [id number]/CPS #: [id number] LALA
[2017-06-20] MEDS: Chlorhexidine MOUTHWASH 0.12%* 15 ML UDC SWISH SPIT SCH ×6 (02:41→22:02)
[2017-06-20] MEDS: HYDROmorphone INJ* 2 MG/ML CARPUJECT SYRINGE IV SLOW PU PRN ×4 (02:45→23:21)
[2017-06-20] MEDS: oxyCODONE TAB* 5 MG TAB PO PRN ×5 (02:59→22:01)
[2017-06-20] MEDS: Ibuprofen ADULT LIQ* 600 MG/30 ML UDC PO PRN ×3 (03:30→20:15)
[2017-06-20] MEDS ORDERED: Mouth Piece, Nicotine* 1 EACH CARTRIDGE INH ONE (04:30)
[2017-06-20 04:47] LABS: Hematocrit 31 % (35-47); Hemoglobin 10.3 g/dl (12.0-16.0); Mean Corpuscular HGB Conc 34 g/dl (31-36); Mean Corpuscular Hemoglobin 30 pg (27-31); Mean Corpuscular Volume 89 fL (80-97); Mean Platelet Volume 10 um3 (7.4-10.4); Red Blood Count 3.47 10^6/ul (4.0-5.4); Red Cell Distribution Width 14 % (10.5-15); White Blood Count 7.6 10^3/ul (3.5-10.8)
[2017-06-20 05:04] LABS: BUN/Creatinine Ratio 8.1 (8-20); Calcium 8.3 mg/dL (8.6-10.3); EGFR African American 144.4 (>60); EGFR Non-African American 112.3 (>60); Potassium 4.2 mmol/L (3.5-5.0)
[2017-06-20] MEDS: Nicotine Inhaler* 10 MG AMP INH PRN (05:36)
[2017-06-20] MEDS: Acetaminophen TAB* 325 MG PO PRN ×2 (07:08→16:13)
[2017-06-20] MEDS: Clindamycin 600 MG IVPREMIX(* 600 MG/50 ML SDV IV SCH ×3 (08:01→23:23)
--- NOTE | 2017-06-20 13:36 | PN ---
Subjective Date of Service: 06/20/17 Interval History: Ms. Galvan reports minimal improvement in the pain and swelling to the left side of her face. She denies other complaint including chest pain, SOB, nausea , or abdominal pain. Objective Active Medications: Acetaminophen (Tylenol Tab*) 650 mg PO Q4H PRN Chlorhexidine Gluconate (Peridex Mouth Wash 0.12%*) 15 ml SWISH SPIT Q4HR MARKUS Hydromorphone HCl (Dilaudid Inj*) 0.5 mg IV SLOW PU Q4H PRN Clindamycin HCl/Dextrose (Cleocin 600 Mg Ivpremix(*) Sdv) 600 mg in 50 mls @ 100 mls/hr IV Q8H MARKUS Sodium Chloride (Ns 0.9% 1000 Ml*) 1,000 mls @ 125 mls/hr IV PER RATE MARKUS Ibuprofen (Motrin Liq Adult*) 600 mg PO TID PRN Nicotine (Nicotine Inhaler*) 10 mg INH Q2H PRN Ondansetron HCl (Zofran Inj*) 4 mg IV Q6H PRN Oxycodone HCl (Roxycodone Tab*) 10 mg PO Q4H PRN Vital Signs: Temp Pulse Resp BP Pulse Ox 98.5 F 79 18 127/79 100 06/20/17 08:01 06/20/17 08:01 06/20/17 11:52 06/20/17 08:01 06/20/17 08:01 Oxygen Devices in Use Now: None Appearance: Female sitting on edge of bed in NAD Eyes: No Scleral Icterus Ears/Nose/Mouth/Throat: Mucous Membranes Moist, - - Mild erythema with swelling to left jaw Neck: Trachea Midline Respiratory: Symmetrical Chest Expansion and Respiratory Effort, Clear to Auscultation Cardiovascular: NL Sounds; No Murmurs; No JVD, No Edema Abdominal: NL Sounds; No Tenderness; No Distention Neurological: Alert and Oriented x 3, NL Muscle Strength and Tone Result Diagrams: 06/20/17 04:38 06/20/17 04:38 Assess/Plan/Problems-Billing Assessment: Ms. Galvan is a 32 yo female with a PMH of migraines and pituitary adenoma who was admitted on 06/19/17 with dental infection and cellulitis. - Patient Problems (1) Dental infection Comment: - With facial cellulitis. - Continue clindamycin. (2) Smoker Comment: - Continue nicotine replacement. (3) DVT prophylaxis Comment: - SCDs. (4) Full code status Status and Disposition: Inpatient.
[2017-06-21] MEDS: Chlorhexidine MOUTHWASH 0.12%* 15 ML UDC SWISH SPIT SCH ×4 (02:15→11:19)
[2017-06-21] MEDS: oxyCODONE TAB* 5 MG TAB PO PRN ×3 (02:16→11:18)
[2017-06-21] MEDS: HYDROmorphone INJ* 2 MG/ML CARPUJECT SYRINGE IV SLOW PU PRN (04:06)
[2017-06-21] MEDS: Nicotine Inhaler* 10 MG AMP INH PRN (04:56)
--- NOTE | 2017-06-21 06:48 | PN ---
Progress Note - Progress Note Date of Service: 06/21/17 Note: supervisor hand silvering contacted me to report that after a dose of hydromorphone IV, Mrs Galvan's nurse went to recheck her pain level to find her gone. Security identified her on video getting into her car and driving around the parking lot. She was confronted and advised that should she leave the floor again without notifying staff all narcotics would be discontinued due to safety concerns. She expressed understanding and a willingness to comply.
[2017-06-21] MEDS ORDERED: Clindamycin CAP* 150 MG PO SCH (07:30)
[2017-06-21 07:34] VITALS: BP 131/86
[2017-06-21] MEDS: Ibuprofen ADULT LIQ* 600 MG/30 ML UDC PO PRN (11:20)
--- NOTE | 2017-06-22 11:40 | DS ---
CC: Dr. Rocha * DISCHARGE SUMMARY: DATE OF ADMISSION: 06/19/17 DATE OF DISCHARGE: 06/21/17 PRIMARY CARE DOCTOR: Dr. Rocha. ATTENDING PHYSICIAN WHILE IN THE HOSPITAL: Joan High MD * (DICTATED BY EARNEST SOLOMON) PRIMARY DISCHARGE DIAGNOSIS: Dental abscess. SECONDARY DISCHARGE DIAGNOSES: 1. Migraine. 2. Pituitary adenoma. STUDIES DONE WHILE IN THE HOSPITAL: None. MEDICATIONS AT DISCHARGE: 1. Omeprazole 40 mg p.o. q.p.m. 2. Excedrin 2 tabs p.o. as needed. 3. Benadryl 1 to 2 tabs p.o. as needed. 4. Benadryl 25 mg, 1 tab p.o. as needed. 5. Imitrex 1 tab p.o. daily as needed. 6. Zofran 4 mg p.o. q.6 hours as needed. 7. Tylenol 650 mg p.o. q.4 hours as needed. 8. Chlorhexidine mouth wash 0.12%, 50 mL swish and spit, q.4 hours. 9. Clindamycin 450 mg p.o. q.i.d. x12 days. 10. Ibuprofen adult liquid 600 mg p.o. t.i.d. as needed. 11. Oxycodone 10 mg p.o. q.4 hours as needed. NEW MEDICATIONS AT DISCHARGE: 1. Tylenol. 2. Chlorhexidine. 3. Clindamycin. 4. Ibuprofen liquid. 5. Oxycodone. MEDICATIONS DISCONTINUED AT DISCHARGE: 1. Oxycodone 5 mg p.o. daily. 2. Clindamycin 150 mg p.o. daily. 3. Tylenol 1000 mg p.o. q.6 hours. 4. Ibuprofen tablet 800 mg p.o. q.6 hours. HOSPITAL COURSE: This is a brief summary of this patient's presentation. For more details, please see the history and physical from Delano Barriga NP., on . In brief, the patient is a 32-year-old female with past medical history as above, who presented to the emergency department 4 times in 5 days for dental pain and was sent out repeatedly with pain pills and p.o. antibiotics, but kept on coming back, not taking the antibiotics, and the swelling got worse. Patient had swelling in her jaw, radiating up and down her neck. Patient also had difficulty swallowing and handling secretions. Patient was admitted for IV pain medications and antibiotics. Patient had no complaints, except for continued pain and nausea with the ceftriaxone. While in the hospital, patient improved greatly, with decreased pain and greatly decreased swelling. No fevers, chills, diarrhea or other side effects from her medications. The patient was amenable to discharge on 06/21/17, to follow up with her primary care provider and get a referral for an oral surgeon. PHYSIAL EXAMINATION ON THE DAY OF DISCHARGE: General: The patient is a 32-year - old female with gross swelling in the left side of her jaw, who otherwise appears stated age and sitting comfortably in the bed, in no acute distress. Vital Signs: At discharge, temperature 97.7, pulse rate 66, respiratory rate 17 , oxygen saturation 99% on room air, blood pressure 131/86. HEENT: Head normocephalic, atraumatic. Sclerae anicteric. No conjunctival injection. Nasal mucosa is moist. Oral mucosa moist. Pharynx nonerythematous. There is swelling on the left side of the jaw, inside the mouth, with no open head. There is a molar with a severe dental caries on that side at the center of the swelling. Neck: Supple. Nontender. Left-sided submandibular lymphadenopathy. No carotid bruits auscultated. Cardiac: Regular rate and rhythm. No clicks , murmurs, gallops or rubs. Pulse is 2+ in the bilateral dorsalis pedis and posterior tibialis areas. No edema. Respiratory: Clear to auscultation bilaterally. No wheezes, rales or rhonchi. Good air exchange bilaterally. Abdomen: Soft, nontender, nondistended. Active bowel sounds present, normoactive in all 4 quadrants. No hepato-splenomegaly. Genitourinary: No CVA tenderness or suprapubic tenderness. Skin: Clean, dry, and intact. There is an area of duskiness over the swelling, but no other rash. Neuro: Cranial nerves II through XII grossly intact. Normal gait. Oriented x3. Psychiatric: Pleasant and cooperative. LABORATORY DATA: Most recent white blood cell count 7.6, hemoglobin 10.3. No other abnormalities. DISCHARGE PLAN: Patient will be discharged to home with p.o. antibiotics as above, as well as pain control as above. The patient should follow up with primary care doctor within 7 days to ensure continued resolution of her symptoms and should follow up with an oral surgeon as soon as possible after that to have the tooth removed and get to the root of the problem. Patient should avoid irritating foods, but otherwise have regular, unrestricted diet. The patient should have activity as tolerated. The patient should return to the hospital for severe worsening in swelling, inability to take p.o. intake or handle her secretions or other alarming symptoms. TIME SPENT: Approximately 60 minutes were spent on this discharge, 40 minutes of which were spent [id number] with the patient obtaining history and physical and discussing treatment plan. EARNEST SOLOMON [id number]/CPS #: [id number] MTDD
== END 2017-06-21 13:30 | disposition home or self-care (01) | DRG 114 ==
LOC: ED 13:24 → EEVIPCON 14:22 → SSU 14:22
PROVIDERS: ADMIT Internal Medicine; ATTEND Internal Medicine
DX: K04.7 Periapical abscess without sinus (principal); L03.211 Cellulitis of face; D35.2 Benign neoplasm of pituitary gland; G43.909 Migraine, unspecified, not intractable, without status migrainosus; F17.210 Nicotine dependence, cigarettes, uncomplicated; K21.9 Gastro-esophageal reflux disease without esophagitis; K58.9 Irritable bowel syndrome, unspecified; F41.9 Anxiety disorder, unspecified; F32.9 Major depressive disorder, single episode, unspecified; Z82.49 Family history of ischemic heart disease and other diseases of the circulatory system; Z90.49 Acquired absence of other specified parts of digestive tract; Z88.1 Allergy status to other antibiotic agents; Z88.5 Allergy status to narcotic agent; Z88.8 Allergy status to other drugs, medicaments and biological substances; Z88.6 Allergy status to analgesic agent; Z88.0 Allergy status to penicillin; Z88.2 Allergy status to sulfonamides; Z91.018 Allergy to other foods; Z83.3 Family history of diabetes mellitus
CPT/HCPCS: 36415; 80048; 80053; 83605; 85014; 85018; 85025; 85610; A9270-GY; J1170; J2405

== ENCOUNTER 2017-07-29 16:47 | Emergency (ER) | payer OTHER ==
[2017-07-29] MEDS ORDERED: Clindamycin CAP* 150 MG PO ONE (17:55)
[2017-07-29] MEDS ORDERED: Ondansetron ODT TAB* 4 MG PO ONE (17:55)
--- NOTE | 2017-07-29 17:58 | ED ---
Throat Pain/Nasal Congestion - HPI Summary HPI Summary: 32F presents with dental pain since last night. She states last month she had the same infection and need to be admitted for sepsis. She has not taken antibiotics in two weeks. She has not followed up with oral surgeon due to insurance but she is working with her dentist to get one. She denies any fever. She admits to increase swelling in the left side of her face. She denies any chest pain, SOB, or difficulty swallowing. She has been taking ibuprofen for the pain which is helping with the swelling but not the pain. She is 10/10 pain. She states three days ago the tooth that was broken was bleeding. She denies any pus drainage from the area. - History of Current Complaint Chief Complaint: EDDentalPain Time Seen by Provider: 07/29/17 17:26 - Allergies/Home Medications Allergies/Adverse Reactions: Allergies Allergy/AdvReac Type Severity Reaction Status Date / Time Cephalexin [From Keflex] Allergy Severe Unknown Verified 07/29/17 17:09 Reaction Details Penicillins Allergy Severe hives, Verified 07/29/17 17:09 fever, rash Tramadol [From Ultram] Allergy Unknown Verified 07/29/17 17:09 Reaction Details Cyclobenzaprine AdvReac Severe increased Verified 07/29/17 17:09 [From Flexeril] depression, suicidal thoughts Metaxalone [From Skelaxin] AdvReac Severe increased Verified 07/29/17 17:09 depression, suicidal thoughts Clarithromycin [From Biaxin] AdvReac Nausea Verified 07/29/17 17:09 Clindamycin AdvReac Vomiting Verified 07/29/17 17:09 Doxycycline AdvReac Vomiting Verified 07/29/17 17:09 Meperidine [From Demerol HCl] AdvReac Vomiting Verified 07/29/17 17:09 Naproxen AdvReac GI Upset Verified 07/29/17 17:09 Sulfamethoxazole AdvReac Nausea Verified 07/29/17 17:09 w/Trimethoprim [From Bactrim] Valproic Acid [From Depakote] AdvReac Stomach Verified 07/29/17 17:09 Cramps miracle whip Allergy Severe n/v, Uncoded 07/29/17 17:09 itchy. hives MorphineIV Allergy Severe Airway Uncoded 07/29/17 17:09 Obstruction ragu spaghetti sauce Allergy Severe n/v, Uncoded 07/29/17 17:09 hives, itchiness Toradol IM Allergy Hives Uncoded 07/29/17 17:09 PMH/Surg Hx/FS Hx/Imm Hx Endocrine/Hematology History: Denies: Hx Diabetes Cardiovascular History: Reports: Hx Syncope, Other Cardiovascular Problems/ Disorders - low blood pressure Denies: Hx Hypertension, Hx Pacemaker/ICD Respiratory History: Reports: Other Respiratory Problems/Disorders - insomnia Denies: Hx Asthma, Hx Chronic Obstructive Pulmonary Disease (COPD) GI History: Reports: Hx Gastroesophageal Reflux Disease - on med, Hx Irritable Bowel, Hx Ulcer - stomach ulcers and an ulcer in esophagus History: Denies: Hx Dialysis, Hx Renal Disease Musculoskeletal History: Reports: Hx Back Problems, Hx Orthopedic Injury, Hx Osteoporosis - spondylolisthesis, Other Musculoskeletal History - reports multiple fractures in past, chronic right arm pain and injury/ulnar Denies: Hx Rheumatoid Arthritis Sensory History: Reports: Hx Contacts or Glasses - glasses for driving Denies: Hx Cataracts, Hx Hearing Aid Opthamlomology History: Reports: Hx Contacts or Glasses - glasses for driving Denies: Hx Cataracts Neurological History: Reports: Hx Migraine - on med prn, Hx Spinal Cord Injury - fx of L4, L5 S1, Other Neuro Impairments/Disorders - reports she has a pituitary adenoma Psychiatric History: Reports: Hx Anxiety, Hx Depression, Hx Community Mental Health Tx - seen prior at [facility] in 2013 Denies: Hx Eating Disorder, Hx Panic Disorder, Hx Inpatient Treatment - no known, Hx of Violent Episodes Against Others, Hx Substance Abuse - Surgical History Surgery Procedure, Year, and Place: Right wrist surgery 05/17/17. tonsillectomy 1989. [place] [facility] [place] [facility] [place] [facility] [place] ( one in [place] [facility] [place] [facility] [place]x Anesthesia Reactions: No Infectious Disease History: No Infectious Disease History: Denies: Hx Clostridium Difficile, Hx Hepatitis, Hx Human Immunodeficiency Virus (HIV), Hx of Known/Suspected MRSA, Hx Shingles, Hx Tuberculosis, Hx Known/ Suspected VRE, Hx Known/Suspected VRSA, History Other Infectious Disease, Traveled Outside the [place] in Last 30 Days - Family History Known Family History: Positive: Cardiac Disease, Diabetes - Social History Alcohol Use: Rare Substance Use Type: Reports: None, Other Substance Use Comment - Amount & Last Used: hx cannabis use Hx Tobacco Use: Yes Smoking Status (MU): Light Every Day Tobacco Smoker Type: Cigarettes Amount Used/How Often: 2 sigarettes/day Length of Time of Smoking/Using Tobacco: since 17yo Have You Smoked in the Last Year: Yes Review of Systems Negative: Fever Positive: Dental Pain Negative: Chest Pain Negative: Shortness Of Breath All Other Systems Reviewed And Are Negative: Yes Physical Exam Triage Information Reviewed: Yes Vital Signs On Initial Exam: Initial Vitals Temp Pulse Resp BP Pulse Ox 98.1 F 74 16 132/72 99 18 17:07 07/29/17 17:07 07/29/17 17:07 07/29/17 17:07 07/29/17 17:07 Vital Signs Reviewed: Yes Appearance: Positive: Well-Appearing Skin: Positive: Warm, Dry Head/Face: Positive: Other - mild swelling left side of face Eyes: Positive: Normal, EOMI, PARVEZ, Conjunctiva Clear ENT: Positive: Normal ENT inspection, Pharynx normal, TMs normal Dental: Positive: Dental Fracture @ - 17, Other - no palpable abscess felt, no submandibular tenderness Neck: Positive: Supple, Nontender, No Lymphadenopathy Respiratory/Lung Sounds: Positive: Clear to Auscultation, Breath Sounds Present Cardiovascular: Positive: Normal, RRR Musculoskeletal: Positive: Normal Neurological: Positive: Normal Psychiatric: Positive: Normal Diagnostics - Vital Signs Vital Signs Temp Pulse Resp BP Pulse Ox 07/29/17 17:07 98.1 F 74 16 132/72 99 - Laboratory Lab Statement: Any lab studies that have been ordered have been reviewed, and results considered in the medical decision making process. EENT Course/Dx - Course Course Of Treatment: 32F presents with dental pain since last night. She states last month she had the same infection and need to be admitted for sepsis. She has not taken antibiotics in two weeks. She has not followed up with oral surgeon due to insurance but she is working with her dentist to get one. She denies any fever. She admits to increase swelling in the left side of her face. She denies any chest pain, SOB, or difficulty swallowing. She has been taking ibuprofen for the pain which is helping with the swelling but not the pain. She is 10/10 pain. She states three days ago the tooth that was broken was bleeding. She denies any pus drainage from the area. on exam fractured tooth at 19. swelling to left side of face with no palpable abscess felt. stable vitals so will start on clindamycin and told if develops fever or if swelling increases after two days on antibiotic to return as will have falled outpt antibiotics at that point. patient understand and agrees with plan. - Differential Diagnoses Differential Diagnoses: Cellulitis, Dental Abscess, Dental Caries, Fractured Tooth - Diagnoses Provider Diagnoses: Dental infection Discharge - Discharge Plan Condition: Good Disposition: HOME Prescriptions: Clindamycin HCl [Clindamycin 150 MG CAP*] 300 mg PO TID #58 cap Ondansetron ODT TAB* [Zofran 4 MG Odt TAB*] 4 mg PO Q6H PRN #20 tab.odt PRN Reason: Nausea oxyCODONE/Acetamin 5/325 MG* [Percocet 5/325 TAB*] 1 tab PO Q6H PRN #12 tab MDD 4 PRN Reason: Pain Patient Education Materials: Dental Abscess (ED) Referrals: Hernandez Rocha MD [Primary Care Provider] - Additional Instructions: Take two tablets three times a day for 10 days Take antibiotic every 6 hours for nausea Use ibuprofen every 6 hours, use narcotic for break through pain Avoid hard, crunchy food until seen by dentist Follow up with oral surgeon as soon as possible Return to ED if develop fever, shortness of breath, pain with eye movement or swelling around eye or any new or worsening symptoms Images - Images Dental: 1 - fracture tooth
[2017-07-29 18:32] VITALS: BP 136/84
== END 2017-07-29 18:31 | disposition home or self-care (01) ==
LOC: ED 16:47
DX: K04.7 Periapical abscess without sinus (principal); K08.89 Other specified disorders of teeth and supporting structures; Z87.19 Personal history of other diseases of the digestive system; F17.210 Nicotine dependence, cigarettes, uncomplicated
CPT/HCPCS: 99282; A9270-GY

== ENCOUNTER 2017-08-23 16:52 | Emergency (ER) | payer OTHER ==
[2017-08-23] MEDS ORDERED: Ibuprofen TAB* 400 MG PO ONE (19:07)
[2017-08-23] MEDS ORDERED: HYDROcodone/ACETAMIN 5-325 MG* 1 TAB PO ONE (19:08)
[2017-08-23] MEDS ORDERED: Clindamycin CAP* 150 MG PO ONE (19:08)
--- NOTE | 2017-08-23 19:22 | ED ---
Throat Pain/Nasal Congestion - HPI Summary HPI Summary: 32 female presents to ED with complaints of left lower tooth infection/pain that has been ongoing for the past months worsening over the past week. Patient states she was taking pain medication and clindamycin however ended it one week ago. over the past few days she has been experiencing similar symptoms as before , drainage, swelling, pain and unable to chew due to the fractured tooth. Pain radiates up into left ear. States she has been working with oral surgery to have it removed however her insurance is causing it to be delayed. No fever or chills. Denies any other complaints at this time. No PMHx. Has been hospitalized previously for dental infection, per patient. - History of Current Complaint Chief Complaint: EDDentalPain Time Seen by Provider: 08/23/17 18:15 Hx Obtained From: Patient Onset/Duration: Gradual Onset, Lasting Weeks, Still Present, Worse Since Severity: Worse Since: - 3 days ago Associated Signs And Symptoms: Positive: Negative Cough: None - Allergies/Home Medications Allergies/Adverse Reactions: Allergies Allergy/AdvReac Type Severity Reaction Status Date / Time MS Cephalexin [From Keflex] Allergy Severe Unknown Verified 08/12/17 13:46 Reaction Details MS Penicillins [Penicillins] Allergy Severe hives, Verified 08/12/17 13:46 fever, rash MS Tramadol [From Ultram] Allergy Unknown Verified 08/12/17 13:46 Reaction Details MS Cyclobenzaprine AdvReac Severe increased Verified 08/12/17 13:46 [From Flexeril] depression, suicidal thoughts MS Metaxalone [From Skelaxin] AdvReac Severe increased Verified 08/12/17 13:46 depression, suicidal thoughts MS Clarithromycin AdvReac Nausea Verified 08/12/17 13:46 [From Biaxin] MS Clindamycin [Clindamycin] AdvReac Vomiting Verified 08/12/17 13:46 MS Doxycycline [Doxycycline] AdvReac Vomiting Verified 08/12/17 13:46 MS Meperidine AdvReac Vomiting Verified 08/12/17 13:46 [From Demerol HCl] MS Naproxen [Naproxen] AdvReac GI Upset Verified 08/12/17 13:46 MS Sulfamethoxazole AdvReac Nausea Verified 08/12/17 13:46 w/Trimethoprim [From Bactrim] MS Valproic Acid AdvReac Stomach Verified 08/12/17 13:46 [From Depakote] Cramps miracle whip Allergy Severe n/v, Uncoded 08/12/17 13:46 itchy. hives MorphineIV Allergy Severe Airway Uncoded 08/12/17 13:46 Obstruction ragu spaghetti sauce Allergy Severe n/v, Uncoded 08/12/17 13:46 hives, itchiness Toradol IM Allergy Hives Uncoded 08/12/17 13:46 PMH/Surg Hx/FS Hx/Imm Hx Endocrine/Hematology History: Denies: Hx Diabetes Cardiovascular History: Reports: Hx Syncope, Other Cardiovascular Problems/ Disorders - low blood pressure Denies: Hx Hypertension, Hx Pacemaker/ICD Respiratory History: Reports: Other Respiratory Problems/Disorders - insomnia Denies: Hx Asthma, Hx Chronic Obstructive Pulmonary Disease (COPD) GI History: Reports: Hx Gastroesophageal Reflux Disease - on med, Hx Irritable Bowel, Hx Ulcer - stomach ulcers and an ulcer in esophagus History: Denies: Hx Dialysis, Hx Renal Disease Musculoskeletal History: Reports: Hx Back Problems, Hx Orthopedic Injury, Hx Osteoporosis - spondylolisthesis, Other Musculoskeletal History - reports multiple fractures in past, chronic right arm pain and injury/ulnar Denies: Hx Rheumatoid Arthritis Sensory History: Reports: Hx Contacts or Glasses - glasses for driving Denies: Hx Cataracts, Hx Hearing Aid Opthamlomology History: Reports: Hx Contacts or Glasses - glasses for driving Denies: Hx Cataracts Neurological History: Reports: Hx Migraine - on med prn, Hx Spinal Cord Injury - fx of L4, L5 S1, Other Neuro Impairments/Disorders - reports she has a pituitary adenoma Psychiatric History: Reports: Hx Anxiety, Hx Depression, Hx Community Mental Health Tx - seen prior at [facility] in 2013 Denies: Hx Eating Disorder, Hx Panic Disorder, Hx Inpatient Treatment - no known, Hx of Violent Episodes Against Others, Hx Substance Abuse - Surgical History Surgery Procedure, Year, and Place: Right wrist surgery/RIGHT ELBOW 05/17/17. tonsillectomy 1989. right ovarian cyst removed 2006 [facility] [place]. [place]olecyst[place] 2006 [facility] [place]. D&C 2006 [facility] [place]. teeth extraction ( one in office and one at [facility] [place] ear biopsy - 2014 [facility] [place] Hx Anesthesia Reactions: No - Immunization History Date of Tetanus Vaccine: UTD Date of Influenza Vaccine: NO Immunizations Up to Date: Yes Infectious Disease History: No Infectious Disease History: Denies: Hx Clostridium Difficile, Hx Hepatitis, Hx Human Immunodeficiency Virus (HIV), Hx of Known/Suspected MRSA, Hx Shingles, Hx Tuberculosis, Hx Known/ Suspected VRE, Hx Known/Suspected VRSA, History Other Infectious Disease, Traveled Outside the [place] in Last 30 Days - Family History Known Family History: Positive: Cardiac Disease, Diabetes - Social History Alcohol Use: Rare Substance Use Type: Reports: None, Other Substance Use Comment - Amount & Last Used: hx cannabis use Hx Tobacco Use: Yes Smoking Status (MU): Light Every Day Tobacco Smoker Type: Cigarettes Amount Used/How Often: 2 sigarettes/day Length of Time of Smoking/Using Tobacco: since 17yo Have You Smoked in the Last Year: Yes Review of Systems Constitutional: Negative Positive: Dental Pain Cardiovascular: Negative Respiratory: Negative Gastrointestinal: Negative Positive: Other - swelling to left cheek All Other Systems Reviewed And Are Negative: Yes Physical Exam Triage Information Reviewed: Yes Vital Signs On Initial Exam: Initial Vitals Temp Pulse Resp BP Pulse Ox 98.7 F 73 16 106/66 96 08/23/17 16:55 08/23/17 16:55 08/23/17 16:55 08/23/17 16:55 08/23/17 16:55 Vital Signs Reviewed: Yes Appearance: Positive: Well-Appearing - tearful holding left cheek, Well- Nourished, Pain Distress - mild-moderate Skin: Positive: Warm, Skin Color Reflects Adequate Perfusion, Dry, Other - swelling to left cheek minimal, no erythema or warmth. Negative: Cold, Cyanosis @, Pale, Erythema @ Head/Face: Positive: Normal Head/Face Inspection - other than edema of left cheek as noted above Eyes: Positive: Normal ENT: Positive: Hearing grossly normal, Pharynx normal, TM red, Uvula midline, Other - ariway patent, no sign of peritonsillar abscess Dental: Positive: Gross Decay/Caries @, Dental Fracture @ - diffuse left lower molars, Abscess @ - left lower jawline firm edematous and tender diffusely however no significant warmth or identifible abscess/pocket appreciated, Cervical Lymphadenopathy Neck: Positive: Supple, Nontender Respiratory/Lung Sounds: Positive: Clear to Auscultation, Breath Sounds Present. Negative: Rales, Rhonchi, Wheezes Cardiovascular: Positive: Normal, RRR, Pulses are Symmetrical in both Upper and Lower Extremities. Negative: Murmur, Rub Neurological: Positive: Normal Psychiatric: Positive: Normal - tearful Diagnostics - Vital Signs Vital Signs Temp Pulse Resp BP Pulse Ox 08/23/17 16:55 98.7 F 73 16 106/66 96 - Laboratory Lab Statement: Any lab studies that have been ordered have been reviewed, and results considered in the medical decision making process. EENT Course/Dx - Course Course Of Treatment: appears to be suffering from dental infection. will start on clindamycin. continue ibuprofen, ice and pain managment. follow up with oral surgeon. aware of worsening signs and symptoms. normal vitals. no other complaints. no other concerns at this time. salt water swishes, good oral hygeine. encouraged probiotic use due to prolonged use of antibiotics - Differential Diagnoses Differential Diagnoses: Dental Abscess, Dental Caries, Fractured Tooth - Diagnoses Provider Diagnoses: Toothache, Dental infection Discharge - Discharge Plan Condition: Stable Disposition: HOME Prescriptions: Clindamycin Cap(NF) [Clindamycin Cap 300 mg Cap(NF)] 300 mg PO TID #30 cap HYDROcodone/ACETAMIN 5-325 MG* [[place] 5-325 TAB*] 1 tab PO Q6H PRN #10 tab MDD 2 PRN Reason: Pain Patient Education Materials: Dental Abscess (ED) Referrals: Luis A Mazariegos MD [Doctor of Dental Medicine] - Hernandez Rocha MD [Primary Care Provider] - Additional Instructions: continue taking ibuprofen. take prescribed medication as directed. swish with salt water, keep good oral hygiene. increase fluid intake. follow up with oral surgeon. any new or worsening symptoms please seek medical attention, as discussed.
[2017-08-23 20:01] VITALS: BP 121/101
[2017-08-23] MEDS ORDERED: Clindamycin CAP* 150 MG ONE (20:03)
== END 2017-08-23 20:04 | disposition home or self-care (01) ==
LOC: ED 16:52
DX: K08.89 Other specified disorders of teeth and supporting structures (principal); K04.7 Periapical abscess without sinus; Z88.0 Allergy status to penicillin; Z87.19 Personal history of other diseases of the digestive system; F17.210 Nicotine dependence, cigarettes, uncomplicated
CPT/HCPCS: 99282; A9270-GY

== ENCOUNTER 2017-09-24 12:58 | Emergency (ER) | payer OTHER ==
--- NOTE | 2017-09-24 13:25 | UC ---
Upper Extremity HPI - HPI Summary HPI Summary: 32 y/o female presents to the urgent care c/o Shoulder pain exacerbated last night after she pulled her coat and she heard it popped out. She put it back in place again, but pain is severe. Pt reports Hx fall/dislocation 2016 and was reduced. She also had recent surgery on right wrist elbow 05/[address] Cuevas. Now she she is scheduled for surgery of RT shoulder with Dr. Workman on 10/18/17. She spoke with Dr. Workman about what happened last night and she was referred to come here for follow up. Pain is 10 /10 w/ decrease ROM of RT shoulder. She is allergic to multiple pain medication and states she can only take Tyner or Diluted. - History of Current Complaint Stated Complaint: SHOULDER INJURY Time Seen by Provider: 09/24/17 13:23 Hx Obtained From: Patient Hx Last Menstrual Period: May 15, 2017 ?: No Onset/Duration: Gradual Onset, Lasting Weeks - 2 months, Still Present, Worse Since - last night Severity Initially: Mild Severity Currently: Severe Pain Intensity: 10 Pain Scale Used: 0-10 Numeric Location Of Pain: Is Discrete @ - RT shoulder Character: Sharp, Throbbing Aggravating Factor(s): Movement, Lifting, Flexion, Extension Alleviating Factor(s): Nothing Associated Signs And Symptoms: Positive: Numbness/Tingling - Risk Factors Non-Orthopedic Risk Factor: Negative DVT Risk Factors: Negative Septic Arthritis Risk Factor: Negative - Allergies/Home Medications Allergies/Adverse Reactions: Allergies Allergy/AdvReac Type Severity Reaction Status Date / Time cephalexin [From Keflex] Allergy Unknown Verified 09/24/17 13:17 Reaction Details clarithromycin [From Biaxin] Allergy Nausea And Verified 09/24/17 13:17 Vomiting cyclobenzaprine Allergy See Comment Verified 09/24/17 13:17 [From Flexeril] divalproex sodium Allergy Abdominal Verified 09/24/17 13:17 [From Depakote] Pain doxycycline Allergy Rash Verified 09/24/17 13:17 ketorolac [From Toradol] Allergy Hives Verified 09/24/17 13:17 meperidine [From Demerol] Allergy Vomiting Verified 09/24/17 13:17 metaxalone [From Skelaxin] Allergy See Comment Verified 09/24/17 13:17 morphine Allergy Anaphylatic Verified 09/24/17 13:17 Shock naproxen Allergy Abdominal Verified 09/24/17 13:17 Pain Penicillins Allergy Hives/Diff. Verified 09/24/17 13:17 Breathing/I tching tramadol [From Ultram] Allergy Unknown Verified 09/24/17 13:17 Reaction Details trimethoprim [From Bactrim] Allergy Nausea Verified 09/24/17 13:17 clindamycin AdvReac Vomiting Verified 09/24/17 13:49 miracle whip Allergy Severe n/v, Uncoded 09/24/17 13:17 itchy. hives ragu spaghetti sauce Allergy Severe n/v, Uncoded 08/12/17 13:46 hives, itchiness Home Medications: Home Medications Acetaminophen TAB* [Tylenol TAB*] 1,000 - 1,500 mg PO DAILY PRN 09/24/17 [ History Confirmed 09/24/17] Ibuprofen TAB* [Advil TAB*] 800 - 1,000 mg PO BID PRN 09/24/17 [History Confirmed 09/24/17] SUMAtriptan TAB* [Imitrex TAB*] 50 mg PO DAILY PRN 09/24/17 [History Confirmed 09/24/17] PMH/Surg Hx/FS Hx/Imm Hx Previously Healthy: Yes GI/ History: Gastroesophageal Reflux Neurological History: Migraine Other Neurological History: Pituitary adenoma Psychological History: Anxiety, Depression - Surgical History Surgical History: Yes Surgery Procedure, Year, and Place: Right wrist surgery/RIGHT ELBOW 05/17/17. tonsillectomy 1989. right ovarian cyst removed 2006 [facility] [place]. cholecystectomy 2006 [facility] [place]. D&C 2006 - [facility] [place]. teeth extraction ( one in office and one at [facility] [place] ear biopsy - 2014 [facility] [place] - Family History Known Family History: Positive: Cardiac Disease, Diabetes - Social History Occupation: Unemployed Lives: With Family Alcohol Use: Rare Substance Use Type: None, Other Substance Use Comment - Amount & Last Used: hx cannabis use Smoking Status (MU): Light Every Day Tobacco Smoker Type: Cigarettes Amount Used/How Often: 2 sigarettes/day Length of Time of Smoking/Using Tobacco: since 17yo Have You Smoked in the Last Year: Yes When Did the Patient Quit Smoking/Using Tobacco: quit 2 weeks ago Household Exposure Type: Cigarettes - Immunization History Most Recent Influenza Vaccination: none Most Recent Tetanus Shot: unsure Most Recent Pneumonia Vaccination: none Review of Systems Constitutional: Negative Skin: Negative Eyes: Negative ENT: Negative Respiratory: Negative Cardiovascular: Negative Gastrointestinal: Negative Genitourinary: Negative Motor: Negative Neurovascular: Negative Musculoskeletal: Decreased ROM - RT shoulder, Other: - RT shoulder pain Neurological: Negative Psychological: Negative Is Patient Immunocompromised?: No All Other Systems Reviewed And Are Negative: Yes Physical Exam - Summary Physical Exam Summary: Vital Signs Reviewed: Yes General: well developed, well nourished female sitting in the examining table w /o any apparent distress, then as PT is aske about her pain Pt starts to cry. Eyes: Positive: Conjunctiva Clear - PERRLA, EOMI, fundi grossly normal ENT: Positive: Normal ENT inspection, Hearing grossly normal, Pharynx normal, TMs normal Neck: Positive: Supple, Nontender, No Lymphadenopathy Respiratory: Positive: Chest non-tender, Lungs clear, Normal breath sounds, No respiratory distress Cardiovascular: Positive: RRR, No Murmur, Pulses Normal, Brisk Capillary Refill Abdomen Description: Positive: Nontender, No Organomegaly, Soft. Negative: CVA Tenderness (R), CVA Tenderness (L) Bowel Sounds: Positive: Present Musculoskeletal: Positive: Strength Intact,Pt ask to revomed 2 shirts for inspection of RT shoulder since she is not allowing to touch shoulder due to pain. Pt removed clothing w/o any difficulty and w/ crying, During inspection she starts to cry of pain: The R shoulder is without obvious asymmetry or deformity when compared to the L shoulder. No surface trauma, ecchymosis, No bony deformity or prominence of humeral head. No erythema, tender to palpation over the clavicle,scapula. and over Acromioclavicular joint and humeral head since Pt doesn't allow palpation. Limited ROM due to pain. "empty can and drop arm test unable to perform due to pain. No lymphadenopathy. Normal sensation over the deltoid and fingers. Distal motor and neurovascular status is intact. scars over the Rt wrist and RT elbow healing well. FROM of RT wrist and elbow. Neurological Exam: Normal Psychological Exam: Normal Skin Exam: Normal Triage Information Reviewed: Yes Upper Extremity Course/Dx - Course Course Of Treatment: 32 y/o female presents to the urgent care c/o Shoulder pain exacerbated last night after she pulled her coat and she heard it popped out. She put it back in place again, but pain is severe. Pt reports Hx fall/ dislocation 2016 and was reduced. She also had recent surgery on right wrist elbow 05/[address] Cuevas. Now she she is scheduled for surgery of RT shoulder with Dr. Workman on 10/18/17. She spoke with Dr. Workman about what happened last night and she was referred to come here for follow up. Pain is 10/10 w/ decrease ROM of RT shoulder. She is allergic to multiple pain medication and states she can only take Tyner or Diluted. Hx obtaiend. Pt alllowed all PE except to touch the RT shoulder.The moment attention is placed on shouldr she starts to cry stating sever pain. However told her i needed to inspect her RT shoulder to r/o dislocation and she removed her shirsts w/o any difficulty or eliciting any pain. No deformity , bruising, ecchymosiss, or swelling observed when compared w/ LF shoulder. 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 Pt explainedthat she is allergict to multiple NSAIDS's and i can only offer her Tylenol or Ibuprofen for pain. She states she needen Tyner or Dilaudid. [employer] print out reports Pt wa Rx Tyner on 09/13/[address] x [address] Allison her PCP. I discussed Pt's symptoms w Dr Schneider and she agreed Pt should not be given any more Pain medication since she still has 5 days of Tyner. Pt was explained that she was Rx Tyner by her PCP and she should f/u w/ her PCP of Orthopedic DR Workman who are Tx her pain. PT became very upset and stated she was not dispensed that Rx. She called [facility] and PCP and left the clinic ambulating , hemodynamically stable, A&OX3 w/o any D/C instructions. - Differential Dx/Diagnosis Differential Diagnosis/HQI/PQRI: Arthritis, Fracture (Closed), Strain, Sprain Provider Diagnoses: 1- Acuter RT shoulder pain - Physician Notification/Consults Discussed Patient Care With: Daria Schneider - DR schneider agreed w/ Pt's plan of care Discharge - Discharge Plan Condition: Stable Disposition: HOME Patient Education Materials: Tendinitis (ED), Shoulder Pain (ED) Referrals: Hernandez Rocha MD [Primary Care Provider] - 1 Day Jourdan Workman MD [Medical Doctor] - 1 Day Additional Instructions: 1-Please take Tylenol PO q4-6hrs or the Hydrocodone tabs dispense by Dr Rocha to alleviate pain. 2-Please apply ice, keep your shoulder immobilized with the shoulder sling . 3- Please f/u with Orthopedic Dr Workman in 1-2 days for further management.
[2017-09-24 13:30] VITALS: BP 122/77
== END 2017-09-24 14:15 | disposition home or self-care (01) ==
LOC: UCEAST 12:58
DX: M25.511 Pain in right shoulder (principal); F17.210 Nicotine dependence, cigarettes, uncomplicated; Z88.3 Allergy status to other anti-infective agents; Z88.5 Allergy status to narcotic agent; Z88.0 Allergy status to penicillin; Z88.8 Allergy status to other drugs, medicaments and biological substances
CPT/HCPCS: 99211; G0463

== ENCOUNTER 2017-09-26 16:26 | Emergency (ER) | payer OTHER ==
[2017-09-26 16:39] VITALS: BP 113/67
[2017-09-26] MEDS ORDERED: Clindamycin CAP* 150 MG PO ONE ×2 (17:42→17:44)
[2017-09-26] MEDS ORDERED: HYDROcodone/ACETAMIN 5-325 MG* 1 TAB PO ONE ×2 (17:43→17:45)
--- NOTE | 2017-09-26 19:49 | ED ---
Jean Trevizo Elizabeth, scribed for Robert Drake MD on 09/26/17 at 1744 . Complex/Multi-Sys Presentation - HPI Summary HPI Summary: The patient is a 32 year old female complaining of dental pain. The patient additionally complains of jaw pain, ear pain, headache, facial swelling and a bad taste in her mouth. The patient was hospitalized for another dental complaint resulting in sepsis that occurred last summer. - History Of Current Complaint Chief Complaint: EDDentalPain Time Seen by Provider: 09/26/17 17:24 Hx Obtained From: Patient Onset/Duration: Still Present Timing: Constant Severity Currently: Moderate Associated Signs And Symptoms: Positive: Headache, Other - Jaw pain, ear pain, facial swelling - Allergies/Home Medications Allergies/Adverse Reactions: Allergies Allergy/AdvReac Type Severity Reaction Status Date / Time cephalexin [From Keflex] Allergy Unknown Verified 09/24/17 13:17 Reaction Details clarithromycin [From Biaxin] Allergy Nausea And Verified 09/24/17 13:17 Vomiting cyclobenzaprine Allergy See Comment Verified 09/24/17 13:17 [From Flexeril] divalproex sodium Allergy Abdominal Verified 09/24/17 13:17 [From Depakote] Pain doxycycline Allergy Rash Verified 09/24/17 13:17 ketorolac [From Toradol] Allergy Hives Verified 09/24/17 13:17 meperidine [From Demerol] Allergy Vomiting Verified 09/24/17 13:17 metaxalone [From Skelaxin] Allergy See Comment Verified 09/24/17 13:17 morphine Allergy Anaphylatic Verified 09/24/17 13:17 Shock naproxen Allergy Abdominal Verified 09/24/17 13:17 Pain Penicillins Allergy Hives/Diff. Verified 09/24/17 13:17 Breathing/I tching tramadol [From Ultram] Allergy Unknown Verified 09/24/17 13:17 Reaction Details trimethoprim [From Bactrim] Allergy Nausea Verified 09/24/17 13:17 clindamycin AdvReac Vomiting Verified 09/26/17 16:37 miracle whip Allergy Severe n/v, Uncoded 09/24/17 13:17 itchy. hives ragu spaghetti sauce Allergy Severe n/v, Uncoded 08/12/17 13:46 hives, itchiness PMH/Surg Hx/FS Hx/Imm Hx Endocrine/Hematology History: Denies: Hx Diabetes Cardiovascular History: Reports: Hx Syncope, Other Cardiovascular Problems/ Disorders - low blood pressure Denies: Hx Hypertension, Hx Pacemaker/ICD Respiratory History: Reports: Other Respiratory Problems/Disorders - insomnia Denies: Hx Asthma, Hx Chronic Obstructive Pulmonary Disease (COPD) GI History: Reports: Hx Gastroesophageal Reflux Disease - on med, Hx Irritable Bowel, Hx Ulcer - stomach ulcers and an ulcer in esophagus History: Denies: Hx Dialysis, Hx Renal Disease Musculoskeletal History: Reports: Hx Back Problems, Hx Orthopedic Injury, Hx Osteoporosis - spondylolisthesis, Other Musculoskeletal History - reports multiple fractures in past, chronic right arm pain and injury/ulnar Denies: Hx Rheumatoid Arthritis Sensory History: Reports: Hx Contacts or Glasses - glasses for driving Denies: Hx Cataracts, Hx Hearing Aid Opthamlomology History: Reports: Hx Contacts or Glasses - glasses for driving Denies: Hx Cataracts Neurological History: Reports: Hx Migraine - on med prn, Hx Spinal Cord Injury - fx of L4, L5 S1, Other Neuro Impairments/Disorders - reports she has a pituitary adenoma Psychiatric History: Reports: Hx Anxiety, Hx Depression, Hx Community Mental Health Tx - seen prior at [facility] in 2013 Denies: Hx Eating Disorder, Hx Panic Disorder, Hx Inpatient Treatment - no known, Hx of Violent Episodes Against Others, Hx Substance Abuse - Surgical History Surgery Procedure, Year, and Place: Right wrist surgery/RIGHT ELBOW 05/17/17. tonsillectomy 1989. right ovarian cyst removed 2006 [facility] [place]. cholecystectomy 2006 [facility] [place]. D&C 2006 [facility] [place]. teeth extraction ( one in office and one at [facility] [place]). ear biopsy - 2014 - [facility] [place] Hx Anesthesia Reactions: No - Immunization History Date of Tetanus Vaccine: UTD Date of Influenza Vaccine: NO Infectious Disease History: No Infectious Disease History: Denies: Hx Clostridium Difficile, Hx Hepatitis, Hx Human Immunodeficiency Virus (HIV), Hx of Known/Suspected MRSA, Hx Shingles, Hx Tuberculosis, Hx Known/ Suspected VRE, Hx Known/Suspected VRSA, History Other Infectious Disease, Traveled Outside the [place] in Last 30 Days - Family History Known Family History: Positive: Cardiac Disease, Diabetes - Social History Alcohol Use: Rare Substance Use Type: Reports: None Substance Use Comment - Amount & Last Used: hx cannabis use Hx Tobacco Use: Yes Smoking Status (MU): Light Every Day Tobacco Smoker Type: Cigarettes Amount Used/How Often: 2 sigarettes/day Length of Time of Smoking/Using Tobacco: since 17yo Have You Smoked in the Last Year: Yes Review of Systems ENT: Other - jaw pain Positive: Dental Pain, Ear Ache Positive: Edema - facial swelling Positive: Headache All Other Systems Reviewed And Are Negative: Yes Physical Exam - Summary Physical Exam Summary: General: well-appearing, mild pain distress Skin: warm, color reflects adequate perfusion, dry Head: normal Eyes: EOMI, PARVEZ ENT: gingival swelling, oral pharygnx open, no obvious abscesses for drainage. Neck: supple, nontender Respiratory: CTA, breath sounds present Cardiovascular: RRR Abdomen: soft, nontender Bowel: present Musculoskeletal: normal, strength/ROM intact Neurological: normal, sensory/motor intact, A&O x3 Psychological: affect/mood appropriate Triage Information Reviewed: Yes Vital Signs On Initial Exam: Initial Vitals Temp Pulse Resp BP Pulse Ox 97.5 F 69 14 113/67 97 09/26/17 16:37 09/26/17 16:37 09/26/17 16:37 09/26/17 16:37 09/26/17 16:37 Vital Signs Reviewed: Yes Diagnostics - Vital Signs Vital Signs Temp Pulse Resp BP Pulse Ox 09/26/17 16:37 97.5 F 69 14 113/67 97 - Laboratory Lab Statement: Any lab studies that have been ordered have been reviewed, and results considered in the medical decision making process. Complex Multi-Symp Course/Dx - Diagnoses Provider Diagnoses: Pain, dental Discharge - Discharge Plan Condition: Stable Disposition: HOME Prescriptions: Clindamycin Cap(NF) [Clindamycin Cap 300 mg Cap(NF)] 300 mg PO Q6H #37 cap Patient Education Materials: Toothache (ED) Referrals: Hernandez Rocha MD [Primary Care Provider] - Additional Instructions: FOLLOW UP WITH YOUR DENTIST AND PRIMARY CARE DOCTOR. RETURN TO THE EMERGENCY DEPARTMENT FOR ANY WORSENING OF YOUR CONDITION OR QUESTIONS OR CONCERNS. The documentation as recorded by the Jean whittaker Elizabeth accurately reflects the service I personally performed and the decisions made by me, Robert Drake MD.
== END 2017-09-26 18:03 | disposition home or self-care (01) ==
LOC: ED 16:26
DX: K08.89 Other specified disorders of teeth and supporting structures (principal); F17.210 Nicotine dependence, cigarettes, uncomplicated; Z88.3 Allergy status to other anti-infective agents; Z88.5 Allergy status to narcotic agent; Z88.0 Allergy status to penicillin; Z88.8 Allergy status to other drugs, medicaments and biological substances
CPT/HCPCS: 99282; A9270-GY

== ENCOUNTER 2017-10-18 09:43 | Day surgery (SDC) | payer OTHER ==
[~2017-10-18 09:43] MED LIST changes: +Buffered Lidocaine 0.9% SYRIN* 5 ML/SYR SYRINGE INTRADERM ONE; -Buffered Lidocaine 1% SYRIN* 3 ML/SYR SYRINGE INTRADERM ONE; +Dexamethasone IV* 4 MG/ML 1 ML (4 MG) IV SLOW PU ONE; +Famotidine IV* 10 MG/ML 2 ML (20 mg) IV ONE
[2017-10-18] MEDS ORDERED: Clindamycin 900 MG IVPREMIX(* 900 MG/50 ML SDV IV ONE (09:57)
[2017-10-18] MEDS ORDERED: Famotidine IV* 10 MG/ML 2 ML (20 mg) ONE (09:57)
[2017-10-18] MEDS ORDERED: Dexamethasone IV* 4 MG/ML 1 ML (4 MG) ONE (09:57)
[2017-10-18] MEDS ORDERED: Bupivacaine 0.25% SDV* 30 ML ONE ×2 (11:56→13:10)
[2017-10-18] MEDS ORDERED: methylPREDNISolone ACETATE 80* 80 MG/ML 1 ML VIAL ONE (11:57)
[2017-10-18] MEDS ORDERED: fentaNYL* 50 MCG/ML 5 ML VIAL (250 MCG VIAL) ONE (12:07)
[2017-10-18] MEDS ORDERED: Propofol* 10 MG/ML 20 ML BTL IV PUSH ONE (12:07)
[2017-10-18] MEDS ORDERED: Lidocaine 2% PF * 5 ML VIAL ONE (12:07)
[2017-10-18] MEDS ORDERED: Midazolam* 1 MG/ML 5 ML VIAL (5 MG) ONE (12:07)
[2017-10-18] MEDS ORDERED: EPHEDrine (Pressors)* 50 MG/ML VIAL ONE (12:41)
[2017-10-18] MEDS ORDERED: PROCHLORPERAZINE INJ 5 MG/ML 2 ML VIAL IV PRN (12:49)
[2017-10-18] MEDS ORDERED: HYDROcodone/ACETAMIN 5-325 MG* 1 TAB PO PRN (12:49)
[2017-10-18] MEDS ORDERED: Naloxone* 0.4 MG/ML 1 ML VIAL IV PRN (12:49)
[2017-10-18] MEDS ORDERED: fentaNYL* 50 MCG/ML 2 ML VIAL (100 MCG VIAL) ONE ×3 (13:08→14:17)
[2017-10-18] MEDS ORDERED: Ondansetron INJ* 2 MG/ML VIAL ONE (13:18)
[2017-10-18] MEDS: fentaNYL* 50 MCG/ML 2 ML VIAL (100 MCG VIAL) IV PRN ×3 (13:52→14:19)
[2017-10-18] MEDS ORDERED: oxyCODONE/Acetamin 5/325 MG* TAB ONE ×2 (14:27→14:36)
[2017-10-18] MEDS: oxyCODONE/Acetamin 5/325 MG* TAB PO PRN ×2 (14:27→14:36)
[2017-10-18 15:11] VITALS: BP 101/68
--- NOTE | 2017-10-23 06:55 | OP ---
CC: PCP, Hernandez Rocha MD * DATE OF OPERATION: 10/18/17 - [facility] DATE OF : 87 SURGEON: Jourdan Workman MD. MACHINE ENGINEER: EARNEST Anderson. An administrative sales assistant was needed for the entirety of the case to help with positioning and retraction and was utilized throughout all positions of the case. ANESTHESIOLOGIST: Dr. Castle. ANESTHESIA: General. PRE-OP DIAGNOSIS: Right shoulder bicipital tendonitis with a partial thickness tearing of the supraspinatus tendon and impingement. POST-OP DIAGNOSIS: Right shoulder arthroscopy with partial thickness tearing of the supraspinatus bicipital tendinitis impingement. OPERATIVE PROCEDURE: Right shoulder arthroscopy with: 1. Extensive glenohumeral debridement including debridement of the supraspinatus tendon. 2. Subacromial decompression with acromioplasty. 3. Subpectoral biceps tenodesis. 4. Subacromial injection with 80 mg of Depo-Medrol. COMPLICATIONS: None. ESTIMATED BLOOD LOSS: Minimal. IMPLANTS USED: One Q-Fix 2.8 mm anchor. INDICATIONS: Jazmine Galvan is a 32-year-old female who has had persistent shoulder pain refractory to conservative management. She has an MRI which confirms partial thickness tear of the rotator cuff as well as bicipital tendinitis and possible SLAP lesion. Risks and benefits of surgery were discussed at length including but not limited to bleeding, infection, damage to nerves, vessels, surrounding structures, wound nonhealing, persistent pain, need for further surgery, scaring, stiffness, incomplete relief of symptoms, and risks of anesthesia. She has elected to proceed with surgery. DESCRIPTION OF PROCEDURE: The patient was greeted in the preoperative area by the attending surgeon. Correct extremity was marked and consent was confirmed. The patient was brought back to the operating room table. She was placed in a supine position on the operating room table. She then underwent general anesthesia under endotracheal intubation after which she was appropriately positioned in the lateral decubitus position with an axillary roll. All bony prominences were padded. She was secured with a peg board. The right shoulder was draped unsterile with 10 pounds of traction. The right shoulder was then prepped and draped in the usual sterile fashion with chlorhexidine soap, scrub, alcohol wipe, and final prep with ChloraPrep. After appropriate surgical pause indicating site, side, procedure, and administration of antibiotics the standard postero-lateral portal was made sharply with an 11 blade. Scope was introduced into the joint, joint was examined. There were grade 0 to 1 changes in the glenohumeral joint. There was evidence of a partial thickness tear of the supraspinatus tendon with an unstable flap but the vast majority of the tendon was intact. There was evidence of partial fraying of the superior labrum as well as fraying of the anterior and posterior labrum. The anterior portal was made in a outside in fashion. Shaver was used to debride back the anterior posterior superior labrum , take the biceps through range of motion. There has been synovitis along the posterior aspect. There is some damage to the biceps vasiliy. The biceps was then tenotomized. The undersurface of the supraspinatus was then debrided back using a shaver. Once the debridement completed, attention was directed to the subacromial space. The scope was introduced into the subacromial space where abundant thick bursa was present. The shaver was used to debride back the abundant bursa that was present as well as the electrocautery to skeletonize the undersurface of the acromion which revealed a small anterolateral spur. The CA ligament was pealed back. The acromioplasty was then done using 4-0 oval alonzo. All excess debris was removed. The cuff was gently probed and there was no evidence of tearing of the bursal surface. There was good quality tissue. Decision was made to not repair this. An 18-gauge needle was placed in under arthroscopic visualization to provide a subacromial injection. All fluid and debris was removed from the joint. Attention was directed to the left biceps. The bed was airplaned to the right side. The anterior aspect of the shoulder was prepped again using ChloraPrep. A 15-blade was used to make an incision in line with the biceps tendon encompassing the inferior two thirds of the pec. Soft tissues were carefully dissected to expose the pec fascia. Remainder of the resection was done bluntly. The inferior border of the pec was elevated. The biceps was then brought through the wound and the groove was prepped in the usual fashion with electrocautery, rasp, and osteotome. The Q-Fix guide was then used to drill unicortically. The Q-Fix was deployed with excellent purchase. The sutures were then passed through the tendon approximately 1 cm proximal to the musculotendinous junction in a Lexx-Brody type configuration. Excess stump was excised and the biceps was then secured. The wound was then copiously irrigated with sterile saline. The portals were closed with 3-0 nylon and the anterior wound was closed in layers with 2-0 Vicryl and 3-0 Monocryl. Intraarticularly, subacromially, as well as the portals were injected with 0.25% Marcaine plain as well as the subacromial space was injected with 80 mg of Depo-Medrol. Sterile dressings were applied. A Cryo/ Cuff and UltraSling were applied. She was awoken from anesthesia and transferred to PACU in stable condition. POSTOPERATIVE PLAN: She will be nonweightbearing. She will be in a sling for 4 weeks. She will be discharged on pain medications, antiinflammatories. DVT prophylaxis was considered, but deferred due to no previous personal or family history. I will see the patient back in 14 days. [id number]/[facility] #: [id number] LALA
== END 2017-10-18 15:13 | disposition home or self-care (01) ==
LOC: OREAST 09:43
PROVIDERS: ATTEND Orthopaedic Surgery
DX: M75.111 Incomplete rotator cuff tear or rupture of right shoulder, not specified as traumatic (principal); M75.21 Bicipital tendinitis, right shoulder; M75.41 Impingement syndrome of right shoulder; Z87.891 Personal history of nicotine dependence; F41.8 Other specified anxiety disorders
CPT/HCPCS: 81025; A9270-GY; C1776; J1040; J1100; J2250; J2405; J2704; J3010

== ENCOUNTER 2017-10-24 15:14 | Emergency (ER) | payer OTHER ==
[2017-10-24] MEDS ORDERED: LORazepam TAB(*) 1 MG PO ONE ×2 (16:18→17:58)
--- NOTE | 2017-10-24 17:18 | RAD ---
INDICATION: Right shoulder pain. Relevant surgical history includes "shoulder surgery" one week earlier. COMPARISON: Most recent comparison radiograph is dated February 27, 2017 TECHNIQUE: 4 views of the right shoulder were obtained. FINDINGS: The adequately corticated bones are in normal alignment. Joint spaces appear maintained. No fracture, dislocation or focal bony abnormality is seen. IMPRESSION: Normal radiograph of the right shoulder. If the patient's symptoms persist, follow-up imaging is recommended.
--- NOTE | 2017-10-24 17:21 | RAD ---
INDICATION: Pain COMPARISON: Similar radiograph dated June 11, 2017 TECHNIQUE: 4 views right elbow. REPORT: The visualized bones of the right elbow are well corticated and properly aligned. There is no radiographically apparent fracture or dislocation. There is no radiographic evidence of pathologic joint effusion. IMPRESSION: Normal radiograph of the right elbow. If the patient's symptoms persist further follow-up imaging is recommended.
[2017-10-24 18:19] VITALS: BP 00/00
--- NOTE | 2017-10-25 16:14 | ED ---
Marianela Trevizo Abhishek, scribed for Robert Drake MD on 10/24/17 at 1619 . Upper Extremity Pain - HPI Summary HPI Summary: The pt is 32 y/o female presenting to the [facility] with a chief complaint of right UE pain. The pt states that there was a metal door slammed shut onto her arm in which she has previously received a surgery on. She post-operational and pre- operational appointments scheduled with physicians. She reports the pain in entire right upper extremity ranging from her shoulder to her finger tips. Pt also reports numbness in her entire right arm. The pain is stated to be a 10/10 in severity. The symptoms are aggravated by nothing. The symptoms are alleviated by nothing. - History of Current Complaint Chief Complaint: EDExtremityUpper Stated Complaint: RT SHOULDER PAIN Time Seen by Provider: 10/24/17 16:06 Hx Obtained From: Patient Hx Last Menstrual Period: May 15, 2017 Mechanism Of Injury: Other - Metal door slammed shut on her right arm Timing: Constant, Lasting Days - since 1 day Severity Initially: Severe Severity Currently: Severe Pain Location: Other: - Entire right arm Aggravating Factor(s): Nothing Alleviating Factor(s): Nothing Associated Signs & Symptoms: Positive: Numbness/Tingling - Entire right arm - Allergies/Home Medications Allergies/Adverse Reactions: Allergies Allergy/AdvReac Type Severity Reaction Status Date / Time Bleach (Sodium Hypochlorite) Allergy Hives Verified 10/11/17 15:07 cephalexin [From Keflex] Allergy Unknown Verified 10/11/17 15:07 Reaction Details clarithromycin [From Biaxin] Allergy Nausea And Verified 10/11/17 15:07 Vomiting cyclobenzaprine Allergy See Comment Verified 10/11/17 15:07 [From Flexeril] divalproex sodium Allergy Abdominal Verified 10/11/17 15:07 [From Depakote] Pain doxycycline Allergy Rash Verified 10/11/17 15:07 ketorolac [From Toradol] Allergy Hives Verified 10/11/17 15:07 meperidine [From Demerol] Allergy Vomiting Verified 10/11/17 15:07 metaxalone [From Skelaxin] Allergy See Comment Verified 10/11/17 15:07 morphine Allergy Anaphylatic Verified 10/11/17 15:07 Shock naproxen Allergy Abdominal Verified 10/11/17 15:07 Pain Penicillins Allergy Hives/Diff. Verified 10/11/17 15:07 Breathing/I tching tramadol [From Ultram] Allergy Unknown Verified 10/11/17 15:07 Reaction Details trimethoprim [From Bactrim] Allergy Nausea Verified 10/11/17 15:07 clindamycin AdvReac Nausea Verified 10/11/17 15:07 miracle whip Allergy Severe n/v, Uncoded 10/11/17 15:07 itchy. hives ragu spaghetti sauce Allergy Severe n/v, Uncoded 10/11/17 15:07 hives, itchiness Home Medications: Home Medications Ibuprofen TAB* [Motrin TAB* 600 MG] 600 mg PO Q6H PRN 10/24/17 [History Confirmed 10/24/17] Omeprazole CAP* [Prilosec CAP* 20 MG] 20 - 40 mg PO DAILY 10/24/17 [History Confirmed 10/24/17] oxyCODONE/Acetam5/325MG PREPAK [Percocet 5/325 TAB*] 1 - 2 tab PO .Q4-6H PRN [History Confirmed 10/24/17] PMH/Surg Hx/FS Hx/Imm Hx Endocrine/Hematology History: Denies: Hx Diabetes Cardiovascular History: Reports: Hx Syncope, Other Cardiovascular Problems/ Disorders - low blood pressure Denies: Hx Hypertension, Hx Pacemaker/ICD Respiratory History: Reports: Other Respiratory Problems/Disorders - insomnia Denies: Hx Asthma, Hx Chronic Obstructive Pulmonary Disease (COPD) GI History: Reports: Hx Gastroesophageal Reflux Disease - on med, Hx Irritable Bowel, Hx Ulcer - stomach ulcers and an ulcer in esophagus, Other GI Disorders - DIVERTICULITIS-? History: Denies: Hx Dialysis, Hx Renal Disease Musculoskeletal History: Reports: Hx Arthritis, Hx Back Problems, Hx Orthopedic Injury, Hx Osteoporosis - spondylolisthesis, Hx Tendonitis, Other Musculoskeletal History - reports multiple fractures in past, chronic right arm pain and injury/ulnar Denies: Hx Rheumatoid Arthritis Sensory History: Denies: Hx Cataracts, Hx Contacts or Glasses, Hx Hearing Aid Opthamlomology History: Denies: Hx Cataracts, Hx Contacts or Glasses Neurological History: Reports: Hx Migraine - on med prn, Hx Spinal Cord Injury - fx of L4, L5 S1, Other Neuro Impairments/Disorders - reports she has a pituitary adenoma Psychiatric History: Reports: Hx Anxiety - NO MEDICATION FOR AT THIS TIME, Hx Depression - NO MEDICATION FOR AT THIS TIME, Hx Community Mental Health [place] - seen prior at [facility] in 2013 Denies: Hx Eating Disorder, Hx Panic Disorder, Hx Inpatient Treatment - no known, Hx of Violent Episodes Against Others, Hx Substance Abuse - Surgical History Surgery Procedure, Year, and Place: Right wrist surgery/RIGHT ELBOW 05/17/17. tonsillectomy 1989 [place]. right ovarian cyst removed 2006 [facility] [place]. cholecystectomy 2006 [facility] [place]. D&C 2006 - [facility] [place]. teeth extraction ( one in office and one at [facility] [place]). ear biopsy - 2014 [facility] [place]. ENDOSCOPIES/COLONOSCOPIES Hx Anesthesia Reactions: No - Immunization History Date of Tetanus Vaccine: UTD Date of Influenza Vaccine: NO Infectious Disease History: No Infectious Disease History: Denies: Hx Clostridium Difficile, Hx Hepatitis, Hx Human Immunodeficiency Virus (HIV), Hx of Known/Suspected MRSA, Hx Shingles, Hx Tuberculosis, Hx Known/ Suspected VRE, Hx Known/Suspected VRSA, History Other Infectious Disease, Traveled Outside the in Last 30 Days - Family History Known Family History: Positive: Cardiac Disease, Diabetes - Social History Alcohol Use: None Substance Use Type: Reports: None Substance Use Comment - Amount & Last Used: hx cannabis use Hx Tobacco Use: Yes Smoking Status (MU): Former Smoker Type: Cigarettes Amount Used/How Often: 1/2-2 PPD X 15-17 YEARS Length of Time of Smoking/Using Tobacco: since 17yo Have You Smoked in the Last Year: Yes Review of Systems Constitutional: Negative Eyes: Negative ENT: Negative Cardiovascular: Negative Respiratory: Negative Gastrointestinal: Negative Genitourinary: Negative Musculoskeletal: Other - Entire Right arm pain from shoulde to finger tips All Other Systems Reviewed And Are Negative: Yes Physical Exam - Summary Physical Exam Summary: General: well-appearing, no pain distress Skin: warm, color reflects adequate perfusion, dry Head: normal Eyes: EOMI, PARVEZ ENT: normal Neck: supple, nontender Respiratory: CTA, breath sounds present Cardiovascular: RRR, good pulses Abdomen: soft, nontender Bowel: present Musculoskeletal: Tender in the shoulder and elbow Neurological: Pain with any range of motion of the shoulder, no sensation deficits Psychological: affect/mood appropriate Triage Information Reviewed: Yes Vital Signs On Initial Exam: Initial Vitals Temp Pulse Resp BP Pulse Ox 97.1 F 76 14 134/74 93 10/24/17 15:16 10/24/17 15:16 10/24/17 15:16 10/24/17 15:16 10/24/17 15:16 Vital Signs Reviewed: Yes Diagnostics - Vital Signs Vital Signs Temp Pulse Resp BP Pulse Ox 10/24/17 15:16 97.1 F 76 14 134/74 93 - Laboratory Lab Statement: Any lab studies that have been ordered have been reviewed, and results considered in the medical decision making process. - Radiology Shoulder X-ray Radiology Interpretation Completed By: Radiologist - Shoulder X-ray reveals Normal radiograph of the right shoulder. If the patient's symptoms persist, Follow up imaging is recommended. Ed Physician has reviewed this radiology report. Elbow X-ray Radiology Interpretation Completed By: Radiologist - [place] X-ray reveals normal radiograph of the right elbow. If the patient's symptoms persist further follow- up imaging is recommended. ED Physician has reviewed this radiology report. Course/Dx - Course Course Of Treatment: DISCUSSED RESULTS WITH PATIENT. - Diagnoses Provider Diagnoses: Right shoulder pain, Right elbow pain Discharge - Sign-Out/Discharge Documenting (check all that apply): Discharge - Discharge Plan Condition: Stable Disposition: HOME Prescriptions: LORazepam [Ativan] 1 mg PO TID PRN #10 tablet MDD 3 PRN Reason: Pain Patient Education Materials: Shoulder Pain (ED) Referrals: Hernandez Rocha MD [Primary Care Provider] - Jourdan Workman MD [Medical Doctor] - Additional Instructions: FOLLOW UP WITH YOUR ORTHOPEDIST. RETURN TO THE EMERGENCY DEPARTMENT FOR ANY WORSENING OF YOUR CONDITION OR QUESTIONS OR CONCERNS. - Billing Disposition and Condition Condition: STABLE Disposition: HOME The documentation as recorded by the Marianela whittaker Abhishek accurately reflects the service I personally performed and the decisions made by me, Robert Drake MD.
== END 2017-10-24 18:16 | disposition home or self-care (01) ==
LOC: ED 15:14
DX: M25.511 Pain in right shoulder (principal); M25.521 Pain in right elbow; W22.8XXA Striking against or struck by other objects, initial encounter; Y92.9 Unspecified place or not applicable; Z87.891 Personal history of nicotine dependence
CPT/HCPCS: 99282; A9270-GY

== ENCOUNTER 2017-12-21 12:09 | Emergency (ER) | payer OTHER ==
[2017-12-21] MEDS ORDERED: HYDROcodone/ACETAMIN 5-325 MG* 1 TAB PO ONE (13:29)
[2017-12-21] MEDS ORDERED: Lidocaine 2% VISCOUS* 15 ML UDC SWISH SPIT ONE (13:30)
[2017-12-21 13:51] LABS: ABS Basophils 0.1 10^3/ul (0-0.2); ABS Eosinophils 0.1 10^3/ul (0-0.6); ABS Lymphocytes 1.6 10^3/ul (1.0-4.8); ABS Monocytes 0.5 10^3/ul (0-0.8); ABS Neutrophils 6.6 10^3/ul (1.5-7.7); ABS Nucleated RBC 0 10^3/ul; Eosinophil % 1.4 % (0-6); Hematocrit 40 % (35-47); Hemoglobin 13.4 g/dl (12.0-16.0); Lymphocyte % 18.5 % (25-47); Mean Corpuscular HGB Conc 33 g/dl (31-36); Mean Corpuscular Hemoglobin 30 pg (27-31); Mean Corpuscular Volume 89 fL (80-97); Mean Platelet Volume 9.6 um3 (7.4-10.4); Nucleated Red Blood Cells % 0; Platelet Count 274 10^3/ul (150-450); Red Blood Count 4.54 10^6/ul (4.00-5.40); Red Cell Distribution Width 15 % (10.5-15); White Blood Count 8.9 10^3/ul (3.5-10.8)
[2017-12-21] MEDS ORDERED: Bupivacaine 0.5%* 50 ML VIAL INJ ONE (14:04)
--- NOTE | 2017-12-21 14:16 | ED ---
Throat Pain/Nasal Congestion - HPI Summary HPI Summary: Patient presents with left lower jaw dental pain past 4 days. This pain is radiating into her jaw her ear and her neck. She's had this issue in the past multiple times and was admitted to the hospital once for progressive infection. During that visit, she was caught leaving the hospital and was asked to leave which she did. She's been referred to "the only oral surgeon who takes her insurance" however she reports they discharged her as she "missed an appointment ". She had some left over clindamycin which she's been taking 3 x day for the past 4 days however feels her issue is not improving. She's got redness and swelling along the gumline which is new for her. Denies drainage, fever, chills , difficulty breathing or swallowing. She takes Tylenol, ibuprofen and Tylenol with Codeine at home- reports none of these are helping. 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 - Allergies/Home Medications Allergies/Adverse Reactions: Allergies Allergy/AdvReac Type Severity Reaction Status Date / Time Bleach (Sodium Hypochlorite) Allergy Hives Verified 12/21/17 12:21 cephalexin [From Keflex] Allergy Unknown Verified 12/21/17 12:21 Reaction Details clarithromycin [From Biaxin] Allergy Nausea And Verified 12/21/17 12:21 Vomiting cyclobenzaprine Allergy See Comment Verified 12/21/17 12:21 [From Flexeril] divalproex sodium Allergy Abdominal Verified 12/21/17 12:21 [From Depakote] Pain doxycycline Allergy Rash Verified 12/21/17 12:21 ketorolac [From Toradol] Allergy Hives Verified 12/21/17 12:21 meperidine [From Demerol] Allergy Vomiting Verified 12/21/17 12:21 metaxalone [From Skelaxin] Allergy See Comment Verified 12/21/17 12:21 morphine Allergy Anaphylatic Verified 12/21/17 12:21 Shock naproxen Allergy Abdominal Verified 12/21/17 12:21 Pain Penicillins Allergy Hives/Diff. Verified 12/21/17 12:21 Breathing/I tching tramadol [From Ultram] Allergy Unknown Verified 12/21/17 12:21 Reaction Details trimethoprim [From Bactrim] Allergy Nausea Verified 12/21/17 12:21 clindamycin AdvReac Nausea Verified 12/21/17 12:21 miracle whip Allergy Severe n/v, Uncoded 12/21/17 12:21 itchy. hives ragu spaghetti sauce Allergy Severe n/v, Uncoded 12/21/17 12:21 hives, itchiness Home Medications: Home Medications Acetaminop/Codeine 30 MG TAB* [Tylenol/Codeine 30 MG TAB*] 1 tab PO BID PRN 06/28 [History Confirmed 12/21/17] Acetaminophen [Tylenol Extra Strength] 1,000 mg PO TID PRN 12/21/17 [History Confirmed 12/21/17] PMH/Surg Hx/FS Hx/Imm Hx Previously Healthy: Yes Endocrine/Hematology History: Denies: Hx Diabetes, Autoimmune Disease Cardiovascular History: Reports: Hx Syncope, Other Cardiovascular Problems/ Disorders - low blood pressure Denies: Hx Hypertension, Hx Pacemaker/ICD Respiratory History: Reports: Other Respiratory Problems/Disorders - insomnia Denies: Hx Asthma, Hx Chronic Obstructive Pulmonary Disease (COPD) GI History: Reports: Hx Gastroesophageal Reflux Disease - on med, Hx Irritable Bowel, Hx Ulcer - stomach ulcers and an ulcer in esophagus, Other GI Disorders - DIVERTICULITIS-? History: Denies: Hx Dialysis, Hx Renal Disease Musculoskeletal History: Reports: Hx Arthritis, Hx Back Problems, Hx Orthopedic Injury, Hx Osteoporosis - spondylolisthesis, Hx Tendonitis, Other Musculoskeletal History - reports multiple fractures in past, chronic right arm pain and injury/ulnar Denies: Hx Rheumatoid Arthritis Sensory History: Denies: Hx Cataracts, Hx Contacts or Glasses, Hx Hearing Aid Opthamlomology History: Denies: Hx Cataracts, Hx Contacts or Glasses EENT History: Reports: Other - recurrent Lt lower dental infection/pain Neurological History: Reports: Hx Migraine - on med prn, Hx Spinal Cord Injury - fx of L4, L5 S1, Other Neuro Impairments/Disorders - reports she has a pituitary adenoma Psychiatric History: Reports: Hx Anxiety - NO MEDICATION FOR AT THIS TIME, Hx Depression - NO MEDICATION FOR AT THIS TIME, Hx Community Mental Health Tx - seen prior at [facility] in 2013 Denies: Hx Eating Disorder, Hx Panic Disorder, Hx Inpatient Treatment - no known, Hx of Violent Episodes Against Others, Hx Substance Abuse - Surgical History Surgery Procedure, Year, and Place: Right wrist surgery/RIGHT ELBOW 05/17/17. tonsillectomy 1989 [place]. [place] [facility] [place] [facility] [place] [facility] [place] ( [place] in [place] [facility] [place] [facility] [place] ENDOSCOPIES/COLONOSCOPIES Hx Anesthesia Reactions: No - Immunization History Date of Tetanus Vaccine: UTD Date of Influenza Vaccine: NO Infectious Disease History: No Infectious Disease History: Denies: Hx Clostridium Difficile, Hx Hepatitis, Hx Human Immunodeficiency Virus (HIV), Hx of Known/Suspected MRSA, Hx Shingles, Hx Tuberculosis, Hx Known/ Suspected VRE, Hx Known/Suspected VRSA, History Other Infectious Disease, Traveled Outside the in Last 30 Days - Family History Known Family History: Positive: Cardiac Disease, Diabetes - Social History Alcohol Use: None Substance Use Type: Reports: None Substance Use Comment - Amount & Last Used: hx cannabis use Hx Tobacco Use: Yes Smoking Status (MU): Former Smoker Type: Cigarettes Amount Used/How Often: 1/2-2 PPD X 15-17 YEARS Length of Time of Smoking/Using Tobacco: since 17yo Have You Smoked in the Last Year: Yes Review of Systems Constitutional: Negative Eyes: Negative Positive: Dental Pain Cardiovascular: Negative Respiratory: Negative Gastrointestinal: Negative Positive: no symptoms reported Positive: Myalgia Skin: Negative Positive: Headache Positive: Anxious All Other Systems Reviewed And Are Negative: Yes Physical Exam Triage Information Reviewed: Yes Vital Signs On Initial Exam: Initial Vitals Temp Pulse Resp BP Pulse Ox 96.8 F 67 14 107/67 98 12/21/17 12:18 12/21/17 12:18 12/21/17 12:18 12/21/17 12:18 12/21/17 12:18 Vital Signs Reviewed: Yes Appearance: Positive: Well-Appearing, Well-Nourished, Pain Distress Skin: Positive: Warm, Skin Color Reflects Adequate Perfusion, Dry - no erythema over Lt side of face/neck, no edema, no lesions Head/Face: Positive: Normal Head/Face Inspection Eyes: Positive: Normal, EOMI, Conjunctiva Clear ENT: Positive: Normal ENT inspection, Hearing grossly normal, Pharynx normal - mucosa moist, Nasal congestion - pt cyring, TMs normal, Trismus, Dental tenderness, Uvula midline. Negative: Muffled voice Dental: Positive: Gross Decay/Caries @ Neck: Positive: Supple, No Lymphadenopathy, Tenderness @ - Lt cervical region Respiratory/Lung Sounds: Positive: Clear to Auscultation, Breath Sounds Present. Negative: Stridor, Wheezes Cardiovascular: Positive: Normal Musculoskeletal: Positive: Normal, Strength/ROM Intact Neurological: Positive: Normal, Sensory/Motor Intact, Alert, Oriented to Person Place, Time, CN Intact II-III Psychiatric: Positive: Anxious - hysterically crying Procedures - Procedure Summary Procedure Summary: Inferior alveolar block Lt - bupivicaine 0.5% - pt tolerated well and reports improvement of pain - no complications Diagnostics - Vital Signs Vital Signs Temp Pulse Resp BP Pulse Ox 12/21/17 12:18 96.8 F 67 14 107/67 98 - Laboratory Lab Results: Lab Results 12/21/17 Range/Units 13:38 WBC 8.9 (3.5-10.8) 10^3/ul RBC 4.54 (4.00-5.40) 10^6/ul Hgb 13.4 (12.0-16.0) g/dl Hct 40 (35-47) % MCV 89 (80-97) fL MCH 30 (27-31) pg MCHC 33 (31-36) g/dl RDW 15 (10.5-15) % Plt Count 274 (150-450) 10^3/ul MPV 9.6 (7.4-10.4) um3 Neut % (Auto) 73.9 (38-83) % Lymph % (Auto) 18.5 L (25-47) % [place] % (Auto) 5.6 (0-7) % Eos % (Auto) 1.4 (0-6) % Baso % (Auto) 0.6 (0-2) % Absolute Neuts (auto) 6.6 (1.5-7.7) 10^3/ul Absolute Lymphs (auto) 1.6 (1.0-4.8) 10^3/ul Absolute Monos (auto) 0.5 (0-0.8) 10^3/ul Absolute Eos (auto) 0.1 (0-0.6) 10^3/ul Absolute Basos (auto) 0.1 (0-0.2) 10^3/ul Absolute Nucleated RBC 0 10^3/ul Nucleated RBC % 0 Result Diagrams: 12/21/17 13:38 12/21/17 13:38 Lab Statement: Any lab studies that have been ordered have been reviewed, and results considered in the medical decision making process. Re-Evaluation - Re-Evaluation First Eval Change: Improved - felt some relief w/ norco for about 20 minutes - would like to proceed w/ dental block Second Eval Change: Improved EENT Course/Dx - Course Course Of Treatment: Pt here w/ recurrent dental pain along LL jaw. She has been seen here frequently for this issue and still has not had her tooth pulled as she reports she was discharged from the 1 dentist in [facility] who takes her insurance. She has had infection in her tissue here in the past and was concerned this could be the case again today - labs and CT ordered however pt declined CT. Her labs and vital signs are WNL. Will refill clindamycin as she's been taking a left over rx and is almost out. Advised she continue ibuprofen with food and will write a short course of norco. STRONGLY urged her to advocate and coordinate better - suggested finding a different dentist and offering to pay on sliding scale or payment plan. She admits she can go to a dentist out of town ([place]) but she can't transport herself and [facility] won't pick her up if she has anesthesia on board from the procedure. She is not willing to have the procedure w/o anesthesia. Reviewed danger s/sx of when to return to ED. Pt agrees w/ plan. - Diagnoses Provider Diagnoses: Pain due to dental caries Discharge - Sign-Out/Discharge Documenting (check all that apply): Discharge/Admit/Transfer - Discharge Plan Condition: Stable Disposition: HOME Prescriptions: Clindamycin HCl 300 mg PO TID #30 capsule HYDROcodone/ACETAMIN 5-325 MG* [[place] 5-325 TAB*] 1 tab PO Q6H PRN #20 tab MDD 4 PRN Reason: Pain Patient Education Materials: Toothache (ED) Referrals: Hernandez Rocha MD [Primary Care Provider] - Additional Instructions: Continue chlorhexadine New clindamycin has been sent to your pharmacy - take with probiotics to prevent c. diff infection Continue ibuprofen with food and use norco as needed - short supply sent as you ultimately need dental extraction. A list of dentists has been provided - please continue to advocate for yourself by offering payment via sliding scale, payment plan, finding a ride to the dentist in [place], etc. *If you develop fever, chills, difficulty breathing or swallowing, return to ED - Billing Disposition and Condition Condition: STABLE Disposition: Home
[2017-12-21 14:27] LABS: EGFR Non-African American 100.9 (>60)
[2017-12-21] MEDS ORDERED: Bupivacaine 0.5% SDV PF* 30ML VIAL ONE (15:00)
[2017-12-21 15:02] VITALS: BP 138/82
== END 2017-12-21 15:31 | disposition home or self-care (01) ==
LOC: ED 12:09
DX: K02.9 Dental caries, unspecified (principal); Z87.891 Personal history of nicotine dependence; Z88.3 Allergy status to other anti-infective agents; Z88.5 Allergy status to narcotic agent; Z88.8 Allergy status to other drugs, medicaments and biological substances; Z88.0 Allergy status to penicillin
CPT/HCPCS: 36415; 80053; 83605; 85025; 86140; 96372; 99282

== ENCOUNTER 2018-01-19 12:30 | Emergency (ER) | payer OTHER ==
[2018-01-19 13:48] LABS: ABS Basophils 0.1 10^3/ul (0-0.2); ABS Eosinophils 0.1 10^3/ul (0-0.6); ABS Lymphocytes 1.5 10^3/ul (1.0-4.8); ABS Monocytes 0.6 10^3/ul (0-0.8); ABS Neutrophils 4.4 10^3/ul (1.5-7.7); ABS Nucleated RBC 0 10^3/ul; Eosinophil % 1.6 % (0-6); Hematocrit 39 % (35-47); Hemoglobin 13.4 g/dl (12.0-16.0); Lymphocyte % 22.6 % (25-47); Mean Corpuscular HGB Conc 34 g/dl (31-36); Mean Corpuscular Hemoglobin 30 pg (27-31); Mean Corpuscular Volume 88 fL (80-97); Mean Platelet Volume 9.6 um3 (7.4-10.4); Nucleated Red Blood Cells % 0; Platelet Count 207 10^3/ul (150-450); Red Blood Count 4.43 10^6/ul (4.00-5.40); Red Cell Distribution Width 14 % (10.5-15); White Blood Count 6.7 10^3/ul (3.5-10.8)
[2018-01-19 14:07] LABS: EGFR Non-African American 106.3 (>60)
--- NOTE | 2018-01-19 14:12 | ED ---
Throat Pain/Nasal Congestion - HPI Summary HPI Summary: Patient presents with left-sided jaw and face swelling and pain. She reports she's had this gradually progressing over the past 3 days but is worse this morning. She has a tooth on this side of her posterior mandible that continues to give her issues (see note from December 2017 - pending extraction > 1 year). She reports the tooth next to it has started to become decayed as well. She is concerned as the pain is radiating up the side of her face, feels like her eye is swollen, ear pain and feels like she is on a hard time swallowing - no issues with breathing. She admits she had copious drainage from this area last night which gave her great relief however this morning her face is swelled back up. She's been taking ibuprofen and Tylenol at home without relief. Ice makes pain worse but helps swelling - has not tried heat. Denies fever, chills, shortness of breath, neck pain or stiffness, headache, chest pain, abdominal pain, nausea, vomiting, diarrhea. She just restarted her clindamycin 300mg TID that she had left over from December yesterday. H/o admission with IV anbx for deep infection here in the past. Discussed w/u options here today including but not limited to labs, CT, I&D, IV anbx - pt is hesitant to move forward and just repeats "I'm here because my doctor sent me". She does not want anything invasive done although understands she may benefit most from I&D unless there is a deeper infection. - History of Current Complaint Chief Complaint: EDDentalPain Time Seen by Provider: 01/19/18 12:54 Hx Obtained From: Patient - Allergies/Home Medications Allergies/Adverse Reactions: Allergies Allergy/AdvReac Type Severity Reaction Status Date / Time Bleach (Sodium Hypochlorite) Allergy Hives Verified 01/19/18 12:41 cephalexin [From Keflex] Allergy Unknown Verified 01/19/18 12:41 Reaction Details clarithromycin [From Biaxin] Allergy Nausea And Verified 01/19/18 12:41 Vomiting cyclobenzaprine Allergy See Comment Verified 01/19/18 12:41 [From Flexeril] divalproex sodium Allergy Abdominal Verified 01/19/18 12:41 [From Depakote] Pain doxycycline Allergy Rash Verified 01/19/18 12:41 ketorolac [From Toradol] Allergy Hives Verified 01/19/18 12:41 meperidine [From Demerol] Allergy Vomiting Verified 01/19/18 12:41 metaxalone [From Skelaxin] Allergy See Comment Verified 01/19/18 12:41 morphine Allergy Anaphylatic Verified 01/19/18 12:41 Shock naproxen Allergy Abdominal Verified 01/19/18 12:41 Pain Penicillins Allergy Hives/Diff. Verified 01/19/18 12:41 Breathing/I tching tramadol [From Ultram] Allergy Unknown Verified 01/19/18 12:41 Reaction Details trimethoprim [From Bactrim] Allergy Nausea Verified 01/19/18 12:41 clindamycin AdvReac Nausea Verified 01/19/18 12:41 miracle whip Allergy Severe n/v, Uncoded 01/19/18 12:41 itchy. hives ragu spaghetti sauce Allergy Severe n/v, Uncoded 01/19/18 12:41 hives, itchiness PMH/Surg Hx/FS Hx/Imm Hx Previously Healthy: Yes Endocrine/Hematology History: Denies: Hx Diabetes Cardiovascular History: Reports: Hx Syncope, Other Cardiovascular Problems/ Disorders - low blood pressure Denies: Hx Hypertension, Hx Pacemaker/ICD Respiratory History: Reports: Other Respiratory Problems/Disorders - insomnia Denies: Hx Asthma, Hx Chronic Obstructive Pulmonary Disease (COPD) GI History: Reports: Hx Gastroesophageal Reflux Disease - on med, Hx Irritable Bowel, Hx Ulcer - stomach ulcers and an ulcer in esophagus, Other GI Disorders - DIVERTICULITIS-? History: Denies: Hx Dialysis, Hx Renal Disease Musculoskeletal History: Reports: Hx Arthritis, Hx Back Problems, Hx Orthopedic Injury, Hx Osteoporosis - spondylolisthesis, Hx Tendonitis, Other Musculoskeletal History - reports multiple fractures in past, chronic right arm pain and injury/ulnar Denies: Hx Rheumatoid Arthritis Sensory History: Denies: Hx Cataracts, Hx Contacts or Glasses, Hx Hearing Aid Opthamlomology History: Denies: Hx Cataracts, Hx Contacts or Glasses Neurological History: Reports: Hx Migraine - on med prn, Hx Spinal Cord Injury - fx of L4, L5 S1, Other Neuro Impairments/Disorders - reports she has a pituitary adenoma Psychiatric History: Reports: Hx Anxiety - NO MEDICATION FOR AT THIS TIME, Hx Depression - NO MEDICATION FOR AT THIS TIME, Hx Community Mental Health Tx - seen prior at [facility] in 2013 Denies: Hx Eating Disorder, Hx Panic Disorder, Hx Inpatient Treatment - no known, Hx of Violent Episodes Against Others, Hx Substance Abuse - Surgical History Surgery Procedure, Year, and Place: Right wrist surgery/RIGHT ELBOW 05/17/17. tonsillectomy 1989 - [place]. [place] [facility] [place] [facility] [place] [facility] [place] ( one in [place] [facility] [place] [facility] [place] ENDOSCOPIES/COLONOSCOPIES Hx Anesthesia Reactions: No - Immunization History Date of Tetanus Vaccine: UTD Date of Influenza Vaccine: NO Infectious Disease History: No Infectious Disease History: Denies: Hx Clostridium Difficile, Hx Hepatitis, Hx Human Immunodeficiency Virus (HIV), Hx of Known/Suspected MRSA, Hx Shingles, Hx Tuberculosis, Hx Known/ Suspected VRE, Hx Known/Suspected VRSA, History Other Infectious Disease, Traveled Outside the in Last 30 Days - Family History Known Family History: Positive: Cardiac Disease - mom, Diabetes - Social History Occupation: Employed Part-time Lives: With Family Alcohol Use: None Hx Substance Use: Yes - not currently Substance Use Type: Reports: None Substance Use Comment - Amount & Last Used: hx cannabis use Hx Tobacco Use: Yes Smoking Status (MU): Former Smoker Type: Cigarettes Amount Used/How Often: 1/2-2 PPD X 15-17 YEARS Length of Time of Smoking/Using Tobacco: since 17yo Have You Smoked in the Last Year: Yes Review of Systems Constitutional: Negative Negative: Fever, Chills, Fatigue Eyes: Negative Positive: Dental Pain, Sore Throat, Ear Ache. Negative: Epistaxis, Nasal Discharge Cardiovascular: Negative Respiratory: Negative Gastrointestinal: Negative Positive: no symptoms reported Musculoskeletal: Negative Skin: Negative Neurological: Negative Positive: Anxious All Other Systems Reviewed And Are Negative: Yes Physical Exam Triage Information Reviewed: Yes Vital Signs On Initial Exam: Initial Vitals Temp Pulse Resp BP Pulse Ox 97.2 F 51 17 117/68 97 01/19/18 12:37 01/19/18 12:37 01/19/18 12:37 01/19/18 12:37 01/19/18 12:37 Vital Signs Reviewed: Yes Appearance: Positive: Well-Appearing, Well-Nourished, Pain Distress - mild to moderate Skin: Positive: Warm, Skin Color Reflects Adequate Perfusion, Dry - no erythema , no lesions, no ecchymosis over face Head/Face: Positive: Other - Lt sided mandible swelling, some scant edema into submandibular region - otherwise localized - no swelling into nasolabial fold, eye, preauricular area Eyes: Positive: Normal, EOMI, PARVEZ, Conjunctiva Clear, Other: - no pain w/ ocular movements. Negative: Conjunctiva Inflammed, Discharge ENT: Positive: Hearing grossly normal, Pharynx normal - patent, no edema visualized, TMs normal, Dental tenderness, Uvula midline. Negative: Nasal congestion, Nasal drainage, TM bulging, TM dull, TM red, Tonsillar swelling, Tonsillar exudate, Trismus, Muffled voice, Hoarse voice, Sinus tenderness Dental: Positive: Gross Decay/Caries @ - Lt posterior molars are decaying with elroy erythema and maceration of gingiva/buccal mucosa along alveolar ridge - boggy; no pustule or drainage appreciated Neck: Positive: Supple, Tenderness @ - Lt side w/ TTP, Enlarged Nodes @ - Lt Respiratory/Lung Sounds: Positive: Clear to Auscultation, Breath Sounds Present. Negative: Stridor, Tracheal Deviation, Wheezes Cardiovascular: Positive: Normal, RRR, S1, S2. Negative: Murmur, Rub Neurological: Positive: Normal, Sensory/Motor Intact, Alert, Oriented to Person Place, Time, CN Intact II-III Psychiatric: Positive: Anxious - intermittently near tears at the thought of draining her swollen area Diagnostics - Vital Signs Vital Signs Temp Pulse Resp BP Pulse Ox 01/19/18 12:37 97.2 F 51 17 117/68 97 - Laboratory Lab Results: Lab Results 01/19/18 01/19/18 01/19/18 Range/Units 13:38 13:38 13:38 WBC 6.7 (3.5-10.8) 10^3/ul RBC 4.43 (4.00-5.40) 10^6/ul Hgb 13.4 (12.0-16.0) g/dl Hct 39 (35-47) % MCV 88 (80-97) fL MCH 30 (27-31) pg MCHC 34 (31-36) g/dl RDW 14 (10.5-15) % Plt Count 207 (150-450) 10^3/ul MPV 9.6 (7.4-10.4) um3 Neut % (Auto) 65.8 (38-83) % Lymph % (Auto) 22.6 L (25-47) % [place] % (Auto) 9.0 H (0-7) % Eos % (Auto) 1.6 (0-6) % Baso % (Auto) 1.0 (0-2) % Absolute Neuts (auto) 4.4 (1.5-7.7) 10^3/ul Absolute Lymphs (auto) 1.5 (1.0-4.8) 10^3/ul Absolute Monos (auto) 0.6 (0-0.8) 10^3/ul Absolute Eos (auto) 0.1 (0-0.6) 10^3/ul Absolute Basos (auto) 0.1 (0-0.2) 10^3/ul Absolute Nucleated RBC 0 10^3/ul Nucleated RBC % 0 Sodium 136 (135-145) mmol/L Potassium 3.9 (3.5-5.0) mmol/L Chloride 102 (101-111) mmol/L Carbon Dioxide 29 (22-32) mmol/L Anion Gap 5 (2-11) mmol/L BUN 6 (6-24) mg/dL Creatinine 0.65 (0.51-0.95) mg/dL Est GFR ( Amer) 128.6 (>60) Est GFR (Non-Af Amer) 106.3 (>60) BUN/Creatinine Ratio 9.2 (8-20) Glucose 79 (70-100) mg/dL Lactic Acid 0.5 (0.5-2.0) mmol/L Calcium 9.2 (8.6-10.3) mg/dL Total Bilirubin 0.50 (0.2-1.0) mg/dL AST 14 (13-39) U/L ALT 11 (7-52) U/L Alkaline Phosphatase 47 (34-104) U/L C-Reactive Protein 82.28 H (<8.01) mg/L Total Protein 7.0 (6.4-8.9) g/dL Albumin 4.1 (3.2-5.2) g/dL Globulin 2.9 (2-4) g/dL Albumin/Globulin Ratio 1.4 (1-3) Result Diagrams: 01/19/18 13:38 01/19/18 13:38 Lab Statement: Any lab studies that have been ordered have been reviewed, and results considered in the medical decision making process. EENT Course/Dx - Course Course Of Treatment: Pt presents w/ acute on chronic dental issues. Discussed options for tx inlcuding labs, CT, IV anbx, I&D. She agreed to labs but does not want any further intervention other than PO meds. She is aware her condition may worsen w/o I&D in the acute setting and dental extraction in the longer term setting. She declines I&D and will try warm salt water rinses along with heat packs. She will continue clindamycin 300mg PO TID x 10 days which she just started yesterday (this rx is from December 2017 and not - it is a full rx because she never started it). It is of note she is breathing and swallowing well - handling secretions w/o difficulty and does not appear to have hesitation or pain with swallowing, talking, breathing, nor does she have shift of airway structures or stridor, etc. Advised she may get worse before she gets better and may return to ED if this occurs. She is also strongly urged to get a ride to the dentist in [place] who has agreed to tx her issue w/ anesthesia which she reports she needs. She is the limiting step in that she has not aranged transportation for herself which she needs to as she will not get dental work w/o anesthesia. Again, medicaid cab will take her to and from [place] dentist if she's not under anesthesia. - Diagnoses Provider Diagnoses: Dental abscess Discharge - Sign-Out/Discharge Documenting (check all that apply): Patient Departure - Discharge Plan Condition: Stable Disposition: HOME Prescriptions: HYDROcodone/ACETAMIN 5-325 MG* [[place] 5-325 TAB*] 1 tab PO Q6H PRN #12 tab MDD 4 PRN Reason: Pain Ibuprofen TAB* [Motrin TAB* 800 MG] 800 mg PO Q8HR PRN #20 tab PRN Reason: Pain Patient Education Materials: Dental Abscess (ED) Forms: *Work Release Referrals: Hernandez Rocha MD [Primary Care Provider] - Additional Instructions: Apply heat, use warm salt water rinses to keep gingiva soft and aid in drainage - if drainage starts, you may milk to continue drainage Complete clindamycin 300mg 3x day for 10 days Take pain medications as needed and directed Follow-up with dentist - call for referal back to [place] dentist and get a ride *If you develop neck pain/stiffness, headache, difficulty breathing or swallowing, fever, worsening of swelling, return to ED - Billing Disposition and Condition Condition: STABLE Disposition: Home
[2018-01-19] MEDS ORDERED: Iohexol 300* (CONTRAST) 10 ML SDV IV ONE (14:28)
[2018-01-19 14:39] VITALS: BP 127/87
== END 2018-01-19 14:38 | disposition home or self-care (01) ==
LOC: ED 12:30
DX: K04.7 Periapical abscess without sinus (principal); Z87.891 Personal history of nicotine dependence; Z88.3 Allergy status to other anti-infective agents; Z88.8 Allergy status to other drugs, medicaments and biological substances; Z88.0 Allergy status to penicillin; Z88.5 Allergy status to narcotic agent
CPT/HCPCS: 36415; 80053; 83605; 85025; 86140; 99282

== ENCOUNTER 2018-02-26 11:42 | Emergency (ER) | payer OTHER ==
[2018-02-26] MEDS ORDERED: Diazepam TAB(*) 5 MG PO ONE (13:31)
--- NOTE | 2018-02-26 13:58 | RAD ---
HISTORY: Rt shoulder pain s/p injury COMPARISONS: October 24, 2017 VIEWS: 5, Frontal internal rotation, external rotation, outlet, and axillary views of the right shoulder FINDINGS: BONE DENSITY: Normal. BONES: There is no displaced fracture. There is a bone island of the glenoid, stable. JOINTS: There is mild osteoarthritis of the AC joint. ALIGNMENT: There is no dislocation. SOFT TISSUES: Unremarkable. OTHER FINDINGS: None. IMPRESSION: NO ACUTE OSSEOUS INJURY. IF SYMPTOMS PERSIST, RECOMMEND REPEAT IMAGING.
--- NOTE | 2018-02-26 14:06 | ED ---
Complex/Multi-Sys Presentation - HPI Summary HPI Summary: Patient presents with right shoulder pain status post injury last night at work. She admits to a history of reconstructive rotator cuff ligaments in the shoulder last year. She reports she did not go to physical therapy after surgery but pain improved tremendously and she had full range of motion. Her injury occurred last night while she was lifting cases of beer. She had an acute pain in her right shoulder and reports she's had pain since. This pain radiates into her bicep and elbow. She has a lingering chronic forearm pain that she reports is an irritation since ulnar nerve surgery with Dr. Cuevas in the past. There is no change in the in the symptoms today. She denies numbness tingling or weakness. She is neurovascularly intact. She took Tylenol and ibuprofen prior to arrival. She also reports her Rt lower jaw tooth is starting to act up again. She was scheduled with [facility] in [place] for this Wednesday for surgery but per pt they called and cancelled. She will reschedule. - History Of Current Complaint Chief Complaint: EDExtremityUpper Time Seen by Provider: 02/26/18 11:59 Hx Obtained From: Patient, Family/Foreign Language Teacher - female "cousin" - Allergies/Home Medications Allergies/Adverse Reactions: Allergies Allergy/AdvReac Type Severity Reaction Status Date / Time Bleach (Sodium Hypochlorite) Allergy Hives Verified 02/26/18 11:48 cephalexin [From Keflex] Allergy Unknown Verified 02/26/18 11:48 Reaction Details clarithromycin [From Biaxin] Allergy Nausea And Verified 02/26/18 11:48 Vomiting cyclobenzaprine Allergy See Comment Verified 02/26/18 11:48 [From Flexeril] divalproex sodium Allergy Abdominal Verified 02/26/18 11:48 [From Depakote] Pain doxycycline Allergy Rash Verified 02/26/18 11:48 ketorolac [From Toradol] Allergy Hives Verified 02/26/18 11:48 meperidine [From Demerol] Allergy Vomiting Verified 02/26/18 11:48 metaxalone [From Skelaxin] Allergy See Comment Verified 02/26/18 11:48 morphine Allergy Anaphylatic Verified 02/26/18 11:48 Shock naproxen Allergy Abdominal Verified 02/26/18 11:48 Pain Penicillins Allergy Hives/Diff. Verified 02/26/18 11:48 Breathing/I tching tramadol [From Ultram] Allergy Unknown Verified 02/26/18 11:48 Reaction Details trimethoprim [From Bactrim] Allergy Nausea Verified 02/26/18 11:48 clindamycin AdvReac Nausea Verified 02/26/18 11:48 miracle whip Allergy Severe n/v, Uncoded 02/26/18 11:48 itchy. hives ragu spaghetti sauce Allergy Severe n/v, Uncoded 02/26/18 11:48 hives, itchiness PMH/Surg Hx/FS Hx/Imm Hx Previously Healthy: Yes Endocrine/Hematology History: Denies: Hx Anticoagulant Therapy, Hx Blood Disorders, Hx Diabetes, Autoimmune Disease Cardiovascular History: Reports: Hx Syncope, Other Cardiovascular Problems/ Disorders - low blood pressure Denies: Hx Hypertension, Hx Pacemaker/ICD Respiratory History: Reports: Other Respiratory Problems/Disorders - insomnia Denies: Hx Asthma, Hx Chronic Obstructive Pulmonary Disease (COPD) GI History: Reports: Hx Gastroesophageal Reflux Disease - on med, Hx Irritable Bowel, Hx Ulcer - stomach ulcers and an ulcer in esophagus, Other GI Disorders - DIVERTICULITIS-? History: Denies: Hx Dialysis, Hx Renal Disease Musculoskeletal History: Reports: Hx Arthritis, Hx Back Problems, Hx Orthopedic Injury, Hx Osteoporosis - spondylolisthesis, Hx Tendonitis, Other Musculoskeletal History - reports multiple fractures in past, chronic right arm pain and injury/ulnar Denies: Hx Rheumatoid Arthritis Sensory History: Denies: Hx Cataracts, Hx Contacts or Glasses, Hx Hearing Aid Opthamlomology History: Denies: Hx Cataracts, Hx Contacts or Glasses Neurological History: Reports: Hx Migraine - on med prn, Hx Spinal Cord Injury - fx of L4, L5 S1, Other Neuro Impairments/Disorders - reports she has a pituitary adenoma Psychiatric History: Reports: Hx Anxiety - NO MEDICATION FOR AT THIS TIME, Hx Depression - NO MEDICATION FOR AT THIS TIME, Hx Community Mental Health Tx - seen prior at [facility] in 2013 Denies: Hx Eating Disorder, Hx Panic Disorder, Hx Inpatient Treatment - no known, Hx of Violent Episodes Against Others, Hx Substance Abuse - Surgical History Surgery Procedure, Year, and Place: Right wrist surgery/RIGHT ELBOW 05/17/17. [place] 1989 [place]. [place] [facility] [place] [facility] [place] [facility] [place] teeth [place] ( [place] in [place] [facility] [place] [facility] [place]OS[place]IES/COLONOSCOPIES Hx Anesthesia Reactions: No - Immunization History Date of Tetanus Vaccine: UTD Date of Influenza Vaccine: NO Infectious Disease History: No Infectious Disease History: Denies: Hx Clostridium Difficile, Hx Hepatitis, Hx Human Immunodeficiency Virus (HIV), Hx of Known/Suspected MRSA, Hx Shingles, Hx Tuberculosis, Hx Known/ Suspected VRE, Hx Known/Suspected VRSA, History Other Infectious Disease, Traveled Outside the [place] in Last 30 Days - Family History Known Family History: Positive: Cardiac Disease - mom, Diabetes - Social History Alcohol Use: None Hx Substance Use: Yes - not currently Substance Use Comment - Amount & Last Used: hx cannabis use Hx Tobacco Use: Yes Smoking Status (MU): Current Every Day Smoker Type: Cigarettes Amount Used/How Often: 1/2-2 PPD X 15-17 YEARS Length of Time of Smoking/Using Tobacco: since 17yo Have You Smoked in the Last Year: Yes Review of Systems Positive: Dental Pain Positive: no symptoms reported Positive: Arthralgia, Myalgia, Decreased ROM. Negative: Edema Skin: Negative Neurological: Negative Positive: Anxious All Other Systems Reviewed And Are Negative: Yes Physical Exam Triage Information Reviewed: Yes Vital Signs On Initial Exam: Initial Vitals Temp Pulse Resp BP Pulse Ox 98.6 F 69 16 121/76 99 02/26/18 11:48 02/26/18 11:48 02/26/18 11:48 02/26/18 11:48 02/26/18 11:48 Vital Signs Reviewed: Yes Appearance: Positive: Well-Appearing, Pain Distress - pt appears well/ comfortable when she is being observed indirectly - she is hysterical and crying when observed directly. Her crying is limited and she recovers composure upon my leaving the room. 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 She can support arm with muscles from Rt shoulder w/o assistance but appears more comfortable holding her Rt arm with her Lt arm Neurological: Positive: Normal, Sensory/Motor Intact, Alert, Oriented to Person Place, Time, CN Intact II-III Psychiatric: Positive: Anxious Diagnostics - Vital Signs Vital Signs Temp Pulse Resp BP Pulse Ox 02/26/18 11:48 98.6 F 69 16 121/76 99 - Laboratory Lab Statement: Any lab studies that have been ordered have been reviewed, and results considered in the medical decision making process. Complex Multi-Symp Course/Dx Course Of Treatment: Surgical findings on XR (previous hole and scar tissue), AC joint arthritis (very mild) - no deformity, no dislocation, no fx, no effusion or fat tissue displacement. Suspect tendon injury given mechanism of injury. SHe was initially provided with diazepam as she was describing muscle spasm with cool compress. SHe reports no relief with acetaminophen and ibuprofen - h/o ulcers. Placed in sling for support and will d/c w/ brief course of gabapentin for pain today as well as forearm pain from ulnar nerve. She may f/u w/ orthopedics this week. Danger s/sx of when to return to ED reviewed. Pt agrees w/ plan. NOTE: will provide brief course of clindamycin as she denies yeast infection, diarrhea however strongly urged her to reschedule her surgery w/ [facility]. Pt agrees w/ plan. - Diagnoses Provider Diagnoses: Right shoulder injury, Dental decay Discharge - Sign-Out/Discharge Documenting (check all that apply): Patient Departure - Discharge Plan Condition: Stable Disposition: HOME Prescriptions: HYDROcodone/ACETAMIN 5-325 MG* [[place] 5-325 TAB*] 1 tab PO Q6H PRN #10 tab MDD 4 PRN Reason: Pain Patient Education Materials: Shoulder Pain (ED), How to Use a Sling (ED) Forms: *Work Release Referrals: Jourdan Workman MD [Medical Doctor] - Additional Instructions: The definitive diagnosis of your shoulder pain was not identified today however given your mechanism of injury, it is suspected that you have a sprained shoulder. You may find relief by supporting your shoulder in a sling until you are seen by your prepress specialist. You've reported surgery through Dr. Workman in the past call her office Wednesday to schedule follow-up. In the meantime you may apply ice to aid with pain and swelling. You may also use high -dose ibuprofen (800 mg every 8 hours with food) along with acetaminophen ( extra strength 650 mg every 6 hours). You have reported multiple drug allergies and reactions to pain medications that could be helpful - you are requesting hydrocodone - a short supply will be ordered and close follow-up with orthopedics for ongoing injury/pain management. *If you develop numbness, tingling, weakness or discoloration of your arm , return to the ED. - Billing Disposition and Condition Condition: STABLE Disposition: Home
[2018-02-26 15:09] VITALS: BP 115/80
== END 2018-02-26 15:08 | disposition home or self-care (01) ==
LOC: ED 11:42
DX: S49.91XA Unspecified injury of right shoulder and upper arm, initial encounter (principal); X50.9XXA Other and unspecified overexertion or strenuous movements or postures, initial encounter; Y92.9 Unspecified place or not applicable; K02.9 Dental caries, unspecified; F17.210 Nicotine dependence, cigarettes, uncomplicated; Z88.3 Allergy status to other anti-infective agents; Z88.8 Allergy status to other drugs, medicaments and biological substances
CPT/HCPCS: 99282; A9270-GY

== ENCOUNTER 2018-03-09 13:50 | Emergency (ER) | payer OTHER ==
[2018-03-09 14:21] VITALS: BP 130/81
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
== END 2018-03-09 15:36 | disposition home or self-care (01) ==
LOC: ED 13:50
DX: F41.9 Anxiety disorder, unspecified (principal); F17.210 Nicotine dependence, cigarettes, uncomplicated; Z88.3 Allergy status to other anti-infective agents; Z88.8 Allergy status to other drugs, medicaments and biological substances; Z88.0 Allergy status to penicillin; Z88.5 Allergy status to narcotic agent

== ENCOUNTER 2018-05-07 12:25 | Emergency (ER) | payer OTHER ==
[2018-05-07] MEDS ORDERED: HYDROcodone/ACETAMIN 5-325 MG* 1 TAB PO ONE (14:56)
--- NOTE | 2018-05-07 15:07 | ED ---
Upper Extremity Pain - HPI Summary HPI Summary: The pt is a 32 y/o female [facility]/o R shoulder pain since 3 days ago worsened today. The pain rated 9/10 in severity radiates to the R scapula and R clavicle. It is aggravated by movement and walking. Her orthopedic surgeon Dr. Damon Mathew MD referred her to the ED for pain control because the current Tylenol and Codeine prescription is not effective. The pt requests Hydrocodone which alleviates the pain. The patient dislocated the R shoulder 1 year ago and has undergone surgeries for it. She is scheduled for another surgery on 05/01/2018. The pt denies fever. - History of Current Complaint Chief Complaint: EDShouldAlvaradoj Stated Complaint: RT SHOULDER/EXTREMITY PAIN Time Seen by Provider: 05/07/18 14:35 Hx Obtained From: Patient Hx Last Menstrual Period: May 15, 2017 Onset/Duration: Started Days Ago - 3 days, Still Present Timing: Constant Pain Location: Shoulder, Arm - R, Elbow - R, Forearm - R, Hand - RUE, Other: - R scapula nad clavicle Character: Sharp Aggravating Factor(s): Movement, Other - Walking Alleviating Factor(s): Other - Hydrocordone Associated Signs & Symptoms: Positive: Back Pain. Negative: Fever Related History: Similar Episode/Dx As - 1 year ago when she dislocated the R shoulder, Dominant Hand Right - Allergies/Home Medications Allergies/Adverse Reactions: Allergies Allergy/AdvReac Type Severity Reaction Status Date / Time Bleach (Sodium Hypochlorite) Allergy Hives Verified 05/07/18 12:41 cephalexin [From Keflex] Allergy Unknown Verified 05/07/18 12:41 Reaction Details clarithromycin [From Biaxin] Allergy Nausea And Verified 05/07/18 12:41 Vomiting cyclobenzaprine Allergy See Comment Verified 05/07/18 12:41 [From Flexeril] divalproex sodium Allergy Abdominal Verified 05/07/18 12:41 [From Depakote] Pain doxycycline Allergy Rash Verified 05/07/18 12:41 ketorolac [From Toradol] Allergy Hives Verified 05/07/18 12:41 meperidine [From Demerol] Allergy Vomiting Verified 05/07/18 12:41 metaxalone [From Skelaxin] Allergy See Comment Verified 05/07/18 12:41 morphine Allergy Anaphylatic Verified 05/07/18 12:41 Shock naproxen Allergy Abdominal Verified 05/07/18 12:41 Pain Penicillins Allergy Hives/Diff. Verified 05/07/18 12:41 Breathing/I tching tramadol [From Ultram] Allergy Unknown Verified 05/07/18 12:41 Reaction Details trimethoprim [From Bactrim] Allergy Nausea Verified 05/07/18 12:41 clindamycin AdvReac Nausea Verified 05/07/18 12:41 miracle whip Allergy Severe n/v, Uncoded 05/07/18 12:41 itchy. hives ragu spaghetti sauce Allergy Severe n/v, Uncoded 05/07/18 12:41 hives, itchiness PMH/Surg Hx/FS Hx/Imm Hx Previously Healthy: No Endocrine/Hematology History: Denies: Hx Anticoagulant Therapy, Hx Blood Disorders, Hx Diabetes Cardiovascular History: Reports: Hx Syncope, Other Cardiovascular Problems/ Disorders - low blood pressure Denies: Hx Hypertension, Hx Pacemaker/ICD Respiratory History: Reports: Other Respiratory Problems/Disorders - insomnia Denies: Hx Asthma, Hx Chronic Obstructive Pulmonary Disease (COPD) GI History: Reports: Hx Gastroesophageal Reflux Disease - on med, Hx Irritable Bowel, Hx Ulcer - stomach ulcers and an ulcer in esophagus, Other GI Disorders - DIVERTICULITIS-? History: Denies: Hx Dialysis, Hx Renal Disease Musculoskeletal History: Reports: Hx Arthritis, Hx Back Problems, Hx Orthopedic Injury, Hx Osteoporosis - spondylolisthesis, Hx Tendonitis, Other Musculoskeletal History - reports multiple fractures in past, chronic right arm pain and injury/ulnar Denies: Hx Rheumatoid Arthritis Sensory History: Denies: Hx Cataracts, Hx Contacts or Glasses, Hx Hearing Aid Opthamlomology History: Denies: Hx Cataracts, Hx Contacts or Glasses Neurological History: Reports: Hx Migraine - on med prn, Hx Spinal Cord Injury - fx of L4, L5 S1, Other Neuro Impairments/Disorders - reports she has a pituitary adenoma Psychiatric History: Reports: Hx Anxiety - NO MEDICATION FOR AT THIS TIME, Hx Depression - NO MEDICATION FOR AT THIS TIME, Hx Community Mental Health Tx - seen prior at [facility] in 2013 Denies: Hx Eating Disorder, Hx Panic Disorder, Hx Inpatient Treatment - no known, Hx of Violent Episodes Against Others, Hx Substance Abuse - Cancer History Cancer Type, Location and Year: None reported - Surgical History Surgery Procedure, Year, and Place: Right wrist surgery/RIGHT ELBOW 05/17/172017 RIGHT SHOULDER SURGERY. [place] 1989 [place]. [place] [facility] [place] 2006 [place] [facility] [place] [facility] [place] extraction ( one in office and one [place] [facility] [place] ear biopsy - [place] [facility] [place] ENDOSCOPIES/COLONOSCOPIES Hx Anesthesia Reactions: No - Immunization History Date of Tetanus Vaccine: UTD Date of Influenza Vaccine: NO Infectious Disease History: No Infectious Disease History: Denies: Hx Clostridium Difficile, Hx Hepatitis, Hx Human Immunodeficiency Virus (HIV), Hx of Known/Suspected MRSA, Hx Shingles, Hx Tuberculosis, Hx Known/ Suspected VRE, Hx Known/Suspected VRSA, History Other Infectious Disease, Traveled Outside the in Last 30 Days - Family History Known Family History: Positive: Cardiac Disease - mom, Diabetes - Social History Occupation: Unemployed Lives: With Family Alcohol Use: None Hx Substance Use: Yes - not currently Substance Use Type: Reports: Marijuana Substance Use Comment - Amount & Last Used: hx cannabis use Hx Tobacco Use: Yes Smoking Status (MU): Current Every Day Smoker Type: Cigarettes Amount Used/How Often: 1/2-2 PPD X 15-17 YEARS Length of Time of Smoking/Using Tobacco: since 17yo Have You Smoked in the Last Year: Yes Review of Systems Negative: Fever Musculoskeletal: Other - Positive: R shoulder pain, back pain at the scapula, clavicular pain Positive: Decreased ROM - RUE All Other Systems Reviewed And Are Negative: Yes Physical Exam - Summary Physical Exam Summary: General: well-appearing, moderate pain distress Skin: warm, color reflects adequate perfusion, dry Head: normal Eyes: EOMI, PARVEZ ENT: normal Neck: Neck is supple with FROM , nontender Respiratory: CTA, breath sounds present Cardiovascular: RRR. Good radial pulses. Nml capillary refill. Abdomen: soft, nontender Bowel: present Musculoskeletal: Tenderness to palpation in the anterior R shoulder, Good range of motion of the R elbow and fingers but with pain, R shoulder mvt is minimal ; moves 30 degrees with adduction and abduction. No attempted internal rotation. Neurological: sensory/motor intact, A&O x3. no loss of sensation Psychological: affect/mood appropriate Triage Information Reviewed: Yes Vital Signs On Initial Exam: Initial Vitals Temp Pulse Resp BP Pulse Ox 98.4 F 62 16 130/64 100 10/27/18 12:35 05/07/18 12:35 05/07/18 12:35 05/07/18 12:35 05/07/18 12:35 Vital Signs Reviewed: Yes Diagnostics - Vital Signs Vital Signs Temp Pulse Resp BP Pulse Ox 05/07/18 12:35 98.4 F 62 16 130/64 100 - Laboratory Lab Statement: Any lab studies that have been ordered have been reviewed, and results considered in the medical decision making process. Course/Dx - Course Course Of Treatment: Medications reviewed. Allergies noted. I performed iSTOP for this patient. - Diagnoses Provider Diagnoses: Right shoulder pain Discharge - Sign-Out/Discharge Documenting (check all that apply): Patient Departure - DC - Discharge Plan Condition: Stable Disposition: HOME Prescriptions: HYDROcodone/ACETAMIN 5-325 MG* [[place] 5-325 TAB*] 1 tab PO Q4H PRN #30 tab MDD 6 PRN Reason: Pain Patient Education Materials: Shoulder Pain (ED) Referrals: Hernandez Rocha MD [Primary Care Provider] - Additional Instructions: FOLLOW UP WITH ORTHOPEDICS. GET RECHECKED FOR ANY WORSENING OF YOUR CONDITION OR QUESTIONS OR CONCERNS. - Billing Disposition and Condition Condition: STABLE Disposition: Home - Attestation Statements Document Initiated by Scribe: Yes Documenting Scribe: Antonia Siegel Provider For Whom Kvng is Documenting (Include Credential): Dr. Robert Drake MD Scribe Attestation: Antonia Trevizo , scribed for Dr. Robert Drake MD on 05/07/18 at 1722. Scribe Documentation Reviewed: Yes Provider Attestation: The documentation as recorded by the scribeAntonia accurately reflects the service I personally performed and the decisions made by me, Dr. Robert Drake MD
[2018-05-07 15:08] VITALS: BP 122/59
== END 2018-05-07 15:06 | disposition home or self-care (01) ==
LOC: ED 12:25
DX: M25.511 Pain in right shoulder (principal); F17.210 Nicotine dependence, cigarettes, uncomplicated; K21.9 Gastro-esophageal reflux disease without esophagitis; K58.9 Irritable bowel syndrome, unspecified
CPT/HCPCS: 99282

== ENCOUNTER 2018-05-30 13:19 | Day surgery (SDC) | payer OTHER ==
--- NOTE | 2018-05-26 20:19 | HP ---
PREOPERATIVE HISTORY AND PHYSICAL: DATE OF ADMISSION/SURGERY: 06/01/18 ATTENDING SURGEON: Dr. Jourdan Workman.* (DICTATED BY EARNEST MULLIGAN) PROCEDURE: Right shoulder arthroscopic decompression, debridement, and excision of distal clavicle. CHIEF COMPLAINT: Right shoulder pain. HISTORY OF PRESENT ILLNESS: Jazmine is a 32-year-old female, who presents to the clinic for followup of right shoulder pain. She had a right shoulder arthroscopic decompression and debridement in the past. She has failed conservative measures and continued to have shoulder pain; therefore, she has agreed to undergo a right shoulder arthroscopic decompression, debridement, excision of distal clavicle with Dr. Workman on 06/01/18. PAST MEDICAL HISTORY: Anxiety, syncope, migraines, spondylolisthesis, obesity, pituitary adenoma, PCOS, arthritis, diverticulosis, peptic ulcer disease, depression, and fibromyalgia. PAST SURGICAL HISTORY: Oral surgery, D and C, tonsillectomy and adenoidectomy, cholecystectomy, cyst removal of the right wrist, arthroscopy with TFCC repair, right elbow ulnar in situ release, and multiple endoscopies, as well as the right shoulder scope. MEDICATIONS: 1. Sumatriptan 100 mg use at onset of headache. 2. Acetaminophen 500 two tabs 3 times a day as needed. 3. Omeprazole 40 mg 1 by mouth every day as needed. 4. Excedrin Migraine 250/250/65 mg 2 tabs by mouth as needed for migraine. 5. Benadryl 25 mg 1 to 2 tabs by mouth as needed. 6. Ibuprofen 600 mg 1 tab 3 times a day as needed for pain. ALLERGIES: PENICILLIN, AMOXICILLIN, AMPICILLIN, BIAXIN, KEFLEX, DEMEROL, DARVOCET, TORADOL, ULTRAM, BACTRIM, MORPHINE, DOXYCYCLINE, FLEXERIL, SKELAXIN, and DEPAKOTE. FAMILY HISTORY: Positive for heart disease, type 2 diabetes, cancer, multiple DVTs and PEs on multiple sides of her family. SOCIAL HISTORY: She lives with her daughter. 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 She quit tobacco about a year ago. She denies alcohol or illegal drug use. REVIEW OF SYSTEMS: A 14-point review of systems was reviewed with the patient. Positive for current complaint, otherwise negative. Denies fever, chills, chest pain, shortness of breath, history of bleeding disorder, history of DVT or PE. PHYSICAL EXAMINATION GENERAL: A 32-year-old well-developed, well-nourished female, in no acute distress. VITAL SIGNS: Height 60, weight 165, pulse 61, blood pressure 195/64, temperature 97.2, BMI 23.7. HEENT: Normocephalic, atraumatic. PERRLA. Throat clear. NECK: Supple. PULMONARY: Lungs are clear to auscultation bilaterally. No wheezing, rhonchi, or rales. CARDIO: Regular rate and rhythm. S1, S2. No murmurs, gallops, or rubs. No edema. ABDOMEN: Positive bowel sounds. Soft, nontender. NEURO: Alert and oriented x3. Cranial nerves grossly intact. MUSCULOSKELETAL: Right upper extremity: Skin is intact. No warmth or erythema. Well-healed surgical incision. Forward flexion and abduction to 110, external rotation to 45, internal rotation to lumbar spine. +2 radial pulse. Sensation intact to light touch distally. DIAGNOSTIC STUDIES: MRI revealed rotator cuff tendinosis with no obvious tearing and recurrent bursitis of the shoulder. ASSESSMENT AND PLAN: Jazmine is a 32-year-old female, who is scheduled to undergo a right shoulder arthroscopic decompression, debridement, and excision of distal clavicle for impingement and AC joint arthritis with Dr. Workman on 06/01/18. She will follow up 10 to 14 days postop for followup and suture removal. Antibiotics will be required postoperatively since she has had surgery before for antibiotic prophylaxis and Percocet will be used for postop pain control for a brief time after surgery. EARNEST MULLIGAN [id number]/[facility] #: [id number] [facility]ALTHDejan
[~2018-05-30 13:19] MED LIST changes: -Dexamethasone IV* 4 MG/ML 1 ML (4 MG) IV SLOW PU ONE; +Dexamethasone TAB* 4 MG ONE; +Dexamethasone TAB* 4 MG PO ONE; +DiMENhydriNATE IV* 50 MG/ML VIAL IV PUSH PRN; +Naloxone* 0.4 MG/ML 1 ML VIAL IV PRN; +Ondansetron INJ* 2 MG/ML VIAL ONE; +PROCHLORPERAZINE INJ 5 MG/ML 2 ML VIAL IV PRN; +Scopolamine 1.5 mg* PATCH TRANSDERM ONE; +fentaNYL* 50 MCG/ML 2 ML VIAL (100 MCG VIAL) IV PRN; +oxyCODONE/Acetamin 5/325 MG* TAB PO PRN
[2018-05-30] MEDS ORDERED: Ondansetron ODT TAB* 4 MG ONE (13:20)
[2018-05-30] MEDS ORDERED: Famotidine IV* 10 MG/ML 2 ML (20 mg) ONE (13:21)
[2018-05-30] MEDS ORDERED: Scopolamine 1.5 mg* PATCH ONE (13:22)
[2018-05-30] MEDS ORDERED: Clindamycin 900 MG/D5W BAG(*) 900 MG/50 ML BAG IVPB ONE (13:29)
[2018-05-30] MEDS ORDERED: Midazolam* 1 MG/ML 5 ML VIAL (5 MG) ONE ×2 (13:48→14:44)
[2018-05-30] MEDS ORDERED: KETAMINE HCL* 50 MG/ML 10 ML VIAL ONE (13:48)
[2018-05-30] MEDS ORDERED: fentaNYL* 50 MCG/ML 2 ML VIAL (100 MCG VIAL) ONE (13:48)
[2018-05-30] MEDS ORDERED: Propofol* 10 MG/ML 20 ML BTL IV PUSH ONE (15:17)
[2018-05-30] MEDS ORDERED: Lidocaine 2% PF * 5 ML VIAL ONE (15:17)
[2018-05-30] MEDS ORDERED: PROCHLORPERAZINE INJ 5 MG/ML 2 ML VIAL ONE (15:17)
[2018-05-30 17:17] VITALS: BP 102/60
[2018-05-30] MEDS ORDERED: Bupivacaine 0.25% SDV PF* 10 ML VIAL INJ ONE (18:46)
--- NOTE | 2018-05-31 11:20 | OP ---
DATE OF OPERATION: 05/30/18 - SDS DATE OF : 87 SURGEON: Jourdan Workman MD SHELTER ADVOCATE: EARNEST Qureshi ANESTHESIOLOGIST: Dr. Escobar. ANESTHESIA: General interscalene block. PRE-OPERATIVE DIAGNOSIS: Right shoulder AC joint arthritis with recurrent impingement. POST-OPERATIVE DIAGNOSIS: Right shoulder AC joint arthritis with recurrent impingement and high grade partial thickness tear of the rotator cuff. OPERATIVE PROCEDURE: Right shoulder arthroscopy with distal clavicle excision, rotator cuff repair with regeneten patch. COMPLICATIONS: None. ESTIMATED BLOOD LOSS: Minimal. IMPLANTS USED: One medium size Regeneten patch at the appropriate tendon and bone ritika. INDICATIONS: Jazmine Galvan is a 33-year-old female who has undergone a previous shoulder arthroscopy with decompression and debridement of the cuff plus arthroscopic biceps tenodesis. She did well for a while and then had persistent pain and difficulty with abduction. We did a repeat MRI that demonstrated no obvious tear of the rotator cuff with significant AC joint arthritis. Her pain was based over there. She failed conservative management and would like to proceed with distal clavicle excision with revision decompression. Risks and benefits of the surgery were discussed at length included but not limited to bleeding, infection, damage to nerves, vessels, surrounding structures, wound non-healing, persistent pain, need for further surgery, scarring, stiffness, incomplete relief of symptoms, risks of anesthesia. DESCRIPTION OF PROCEDURE: The patient was greeted in the preoperative area by the attending surgeon. Correct extremity was marked and consent was confirmed. The patient then underwent interscalene nerve block by the anesthesiologist, after which she was brought back to the operating room suite. She was placed in a supine position on the operating room table. She was placed in the left lateral decubitus position with an axillary roll. All bony prominences were padded. She was secured with a peg board. The right arm was draped unsterile with 10 pounds of traction. The right shoulder was prepped and draped in usual sterile fashion beginning with chlorhexidine soap, scrub, and alcohol wipe, and a final prep with ChloraPrep. After appropriate surgical pause indicating site, side, procedure, and administration of antibiotics, a standard postero-lateral portal was made sharply with an 11 blade and the scope was introduced into the joint, joint was examined. There was high grade partial thickness tearing of the undersurface of the supraspinatus. The glenohumeral joint had grade 0-1 changes. The inferior recess was intact. The undersurface of the subscapularis was intact. Attention was then directed to subacromial space. With the scope was introduced into the subacromial space, a lateral portal was made in an outside-in fashion. There was abundant thick bursa and adherent posteriorly specifically bursal adhesions. The rotator cuff repair did look okay with some mild fraying but the adhesions was needed to be released and a revision bursectomy was done. At this point, the electrocautery device was then used to skeletonize the undersurface of the acromion, all the way level to the AC joint. The previous acromioplasty was adequate, but the AC joint was exposed. Attention was directed to the distal clavicle. The alonzo was brought into the anterior portal, distal 8-mm of the clavicle were then resected using a 4-0 oval alonzo. This was confirmed with arthroscopic visualization as well as mobilization of the clavicle. All loose fibers and debris were removed from this. At this point, attention was directed to the cuff. The cuff was probed and there was high grade partial thickness tearing and this is a revision surgery and a decision was made to try to do something to allow the cuff to heal as it did not heal from her previous surgery. Therefore, the Regeneten patch was brought to the field. The medium size patch was brought to the field, it was then placed under arthroscopic visualization and was secured medially with tendon ritika and laterally with bone ritika. Final images were obtained. The wounds were then copiously irrigated with sterile saline. Sterile dressing were obtained as well as Cryo/Cuff and a sling. She was awoken from anesthesia and transferred to the PACU in stable condition. POSTOPERATIVE PLAN: She will be nonweightbearing. She will be allowed range of motion as tolerated. She will start therapy next week. I will see the patient back in 10 to 14 days. She will be discharged on pain medication and antibiotics. She only be on pain medication for a total of four weeks and then she will need to have coverage by her primary care doctor as she had been fired from every pain clinic in [place] [facility]. I will see the patient back in 10 to 14 days. [id number]/[facility] #: [id number] [facility] CENTERDejan
[2018-06-02] MEDS ORDERED: Scopolamine PATCH Remove* 1 NOTE MISC PATCH OFF ONE (06:00)
== END 2018-05-30 17:18 | disposition home or self-care (01) ==
LOC: OR 13:19
PROVIDERS: ATTEND Orthopaedic Surgery
DX: M19.211 Secondary osteoarthritis, right shoulder (principal); M75.41 Impingement syndrome of right shoulder; M75.101 Unspecified rotator cuff tear or rupture of right shoulder, not specified as traumatic; G89.18 Other acute postprocedural pain; Z72.0 Tobacco use; E78.5 Hyperlipidemia, unspecified
CPT/HCPCS: 81025; 88304; A9270-GY; C1713; J0780; J2250; J2704; J3010; J3490; J8540

== ENCOUNTER 2018-06-06 13:12 | Emergency (ER) | payer OTHER ==
[2018-06-06 14:05] VITALS: BP 133/85
[2018-06-06] MEDS ORDERED: HYDROcodone/ACETAMIN 5-325 MG* 1 TAB PO ONE (14:12)
--- NOTE | 2018-06-06 14:19 | UC ---
Shoulder Pain HPI - HPI Summary HPI Summary: 33-year-old woman comes to clinic today with a chief complaint of right shoulder pain. She had right shoulder surgery on 30 May 2018. She was prescribed Percocet total number of 20 on May 30, 2018. There is a 4 days supply. Patient states she ran out 3 days ago and the pains been increasing. No fevers or chills she has pain with any Range of motion. The worst pain is right in the shoulder itself. No complaint of any numbness. No weakness in the hand wrist or elbow. Due to the pain the patient declines moving the shoulder. Pain radiates up into the neck and down the arm. - History of Current Complaint Chief Complaint: UCUpperExtremity Stated Complaint: R SHOULDER PAIN Time Seen by Provider: 06/06/18 13:55 Hx Last Menstrual Period: 05/08/18 Pain Intensity: 10 - Allergies/Home Medications Allergies/Adverse Reactions: Allergies Allergy/AdvReac Type Severity Reaction Status Date / Time Bleach (Sodium Hypochlorite) Allergy Severe rash, itchy Verified 05/30/18 13:41 cephalexin [From Keflex] Allergy Severe Unknown Verified 06/06/18 13:55 Reaction Details clarithromycin [From Biaxin] Allergy Severe Nausea And Verified 06/06/18 13:55 Vomiting cyclobenzaprine Allergy Severe See Comment Verified 06/06/18 13:55 [From Flexeril] divalproex sodium Allergy Severe Abdominal Verified 06/06/18 13:55 [From Depakote] Pain doxycycline Allergy Severe Rash Verified 06/06/18 13:55 ketorolac [From Toradol] Allergy Severe Rash And Verified 06/06/18 13:55 Itching meperidine [From Demerol] Allergy Severe Vomiting Verified 06/06/18 13:55 morphine Allergy Severe Anaphylatic Verified 06/06/18 13:55 Shock naproxen Allergy Severe Abdominal Verified 06/06/18 13:55 Pain Penicillins Allergy Severe Hives/Diff. Verified 06/06/18 13:55 Breathing/I tching tramadol [From Ultram] Allergy Severe Rash Verified 06/06/18 13:55 trimethoprim [From Bactrim] Allergy Severe Nausea Verified 06/06/18 13:55 metaxalone [From Skelaxin] Allergy Intermediate See Comment Verified 06/06/18 13 :55 clindamycin AdvReac Severe Nausea Verified 06/06/18 13:55 miracle whip Allergy Severe n/v, Uncoded 06/06/18 13:55 itchy. hives ragu spaghetti sauce Allergy Severe n/v, Uncoded 06/06/18 13:55 hives, itchiness Home Medications: Home Medications Clindamycin Cap(NF) [Clindamycin Cap 300 mg Cap(NF)] 300 mg PO TID 06/06/18 [ History Confirmed 06/06/18] PMH/Surg Hx/FS Hx/Imm Hx Psychological History: Depression, Bipolar Disorder Other History Of: Negative For: Anticoagulant Therapy - Surgical History Surgical History: Yes Surgery Procedure, Year, and Place: Right wrist surgery/RIGHT ELBOW 05/17/172017 RIGHT SHOULDER SURGERYx2. tonsillectomy 1989 [place]. right ovarian cyst removed 2006 [facility] [place]. cholecystectomy 2006 [facility] [place]. D&C 2006 - [facility] [place]. teeth extraction ( one in office and one at [facility] [place]). ear biopsy - 2014 [facility] [place]. ENDOSCOPIES/COLONOSCOPIES - Family History Known Family History: Positive: Cardiac Disease - mom, Diabetes - Social History Alcohol Use: None Substance Use Type: None Substance Use Comment - Amount & Last Used: hx cannabis use Smoking Status (MU): Light Every Day Tobacco Smoker Type: Cigarettes Amount Used/How Often: 1/2-2 PPD X 15-17 YEARS Length of Time of Smoking/Using Tobacco: since 17yo Have You Smoked in the Last Year: Yes When Did the Patient Quit Smoking/Using Tobacco: 1 MONTH AGO Household Exposure Type: Cigarettes - Immunization History Most Recent Influenza Vaccination: none Most Recent Tetanus Shot: unsure Most Recent Pneumonia Vaccination: none Review of Systems All Other Systems Reviewed And Are Negative: Yes Constitutional: Positive: Negative. Negative: Fever Skin: Positive: Other - Right shoulder has surgical incision wounds Eyes: Positive: Negative ENT: Positive: Negative Respiratory: Positive: Negative Cardiovascular: Positive: Negative Gastrointestinal: Positive: Negative Motor: Positive: Decreased ROM Neurovascular: Positive: Negative Musculoskeletal: Positive: Decreased ROM, Other: - see hpi Neurological: Positive: Negative Psychological: Positive: Negative Is Patient Immunocompromised?: No Physical Exam Triage Information Reviewed: Yes Appearance: Well-Appearing, Well-Nourished, Pain Distress - mild at rest, moderate with left arm movement Vital Signs: Initial Vital Signs Temp 98.2 F 11/26/18 13:58 Pulse 85 06/06/18 13:58 Resp 22 06/06/18 13:58 BP 133/85 06/06/18 13:58 Pulse Ox 98 06/06/18 13:58 Vital Signs Reviewed: Yes Eye Exam: Normal Eyes: Positive: Conjunctiva Clear Neck: Positive: Supple Respiratory: Positive: No respiratory distress Musculoskeletal: Positive: Other: - Patient's right shoulder is tender to palpation. Normal radial pulses bilaterally no sensation deficit in either arm. Capillary refill both arms and hands. Fingers full range of motion and full strength wrist full range of motion full-strength elbow has some decreased range of motion with limitations of full extension patient reports has the she has pain and therefore she cannot fully extend the right elbow. Patient has been normal of the right shoulder secondary to pain. Psychological Exam: Normal Psychological: Positive: Age Appropriate Behavior Skin: Positive: Other - The surgical incision wounds on the right shoulder are clean dry intact no drainage no erythema. No calor. Shoulder Course/Dx - Course Course Of Treatment: Order Information: SHOULDER RIGHT 2+ VWS. Accession Number : [id number]. CPT: 66954. Indication: Right shoulder pain. 3 views of the right shoulder is reviewed. Comparison is made previous exam dated 2017. There is no fracture or dislocation. Joint spaces well-preserved. Bone island noted in the. glenoid which is unchanged. IMPRESSION: Unremarkable right shoulder. No changes noted since February 26, 2018. . <Electronically signed by Roseline Wang MD in [place]> 06/06/18 [id number]. I discussed the x-ray with the patient. I did the istop with the patient. Her last pain and is sent prescription was for May 30, 2018 for Percocet total of 20 for 4 day supply. Patient has no fever or do not see any signs of infection. There is limited range of motion which I would expect given the pain. At this time I prescribed Percocet in the plan is to follow-up primary care doctor and/or orthopedics. - Differential Dx/Diagnosis Provider Diagnosis: Right shoulder pain Discharge - Sign-Out/Discharge Documenting (check all that apply): Patient Departure All imaging exams completed and their final reports reviewed: Yes - Discharge Plan Condition: Stable Disposition: HOME Prescriptions: Oxycodone HCl/Acetaminophen [Percocet 5-325 mg Tablet] 1 each PO Q6H PRN 5 Days #20 tablet MDD 4 PRN Reason: Pain Patient Education Materials: Shoulder Pain (ED) Referrals: Hernandez Rocha MD [Primary Care Provider] - [facility] [Outside] Additional Instructions: FOLLOW UP WITH YOUR PRIMARY CARE DOCTOR AND ORTHOPEDIST. GET RECHECKED FOR ANY WORSENING OF YOUR CONDITION; PAIN, FEVER, YOU FEEL ILL OR QUESTIONS OR CONCERNS. - Billing Disposition and Condition Condition: STABLE Disposition: Home
== END 2018-06-06 14:50 | disposition home or self-care (01) ==
LOC: UCEAST 13:12
DX: M25.511 Pain in right shoulder (principal); G89.18 Other acute postprocedural pain; Z88.1 Allergy status to other antibiotic agents; Z88.8 Allergy status to other drugs, medicaments and biological substances; Z88.5 Allergy status to narcotic agent; Z88.0 Allergy status to penicillin; F17.210 Nicotine dependence, cigarettes, uncomplicated
CPT/HCPCS: 99212; G0463

== ENCOUNTER 2018-06-27 12:50 | Emergency (ER) | payer OTHER ==
[2018-06-27] MEDS ORDERED: oxyCODONE/Acetamin 5/325 MG* TAB PO ONE (13:23)
[2018-06-27] MEDS ORDERED: Clindamycin CAP* 150 MG PO ONE (13:23)
--- NOTE | 2018-06-27 13:32 | ED ---
Upper Extremity Pain - HPI Summary HPI Summary: The pt is a 33 y/o female [facility] [place] R shoulder pain since 3 days ago. She had a rotator cuff surgery on 05/30/[address] Jacinta MD at [facility] [place]. She is unable to move her RUE. The pt also notes bilateral L jaw pain secondary to dental cavities. The dental pain that radiates to the L ear. The pain rated 9/10 in severity is unrelieved by 800 mg Motrin taken at 03:00 hrs today. Home Medications Medication Instructions Recorded Confirmed Type SUMAtriptan TAB* [Imitrex TAB*] 100 mg PO DAILY PRN 09/24/17 06/06/18 History Omeprazole CAP* [Prilosec CAP* 20 40 mg PO QAM PRN 10/24/17 06/06/18 History MG] Acetaminophen [Tylenol Extra 1,000 mg PO TID PRN 12/21/17 06/06/18 History Strength] Ibuprofen TAB* [Motrin TAB* 800 MG] 800 mg PO Q8HR PRN #20 tab 01/19/18 Rx ALPRAZolam TAB* [Xanax TAB*] 0.25 mg PO BEDTIME PRN 05/23/18 06/06/18 History Clindamycin Cap(NF) [Clindamycin 300 mg PO TID 06/06/18 06/06/18 History Cap 300 mg Cap(NF)] Oxycodone HCl/Acetaminophen 1 each PO Q6H PRN 5 Days #20 06/06/18 Rx [Percocet 5-325 mg Tablet] tablet MDD 4 - History of Current Complaint Chief Complaint: EDShoulderClavicleInj Stated Complaint: SHOULDER PAIN Time Seen by Provider: 06/27/18 13:10 Hx Obtained From: Patient Hx Last Menstrual Period: 05/08/18 Onset/Duration: Started Days Ago - 3 days, Still Present Timing: Constant Severity Initially: Severe Severity Currently: Severe Pain Location: Shoulder - R Character: Sharp Aggravating Factor(s): Movement Alleviating Factor(s): Nothing Related History: Dominant Hand Right - Allergies/Home Medications Allergies/Adverse Reactions: Allergies Allergy/AdvReac Type Severity Reaction Status Date / Time Bleach (Sodium Hypochlorite) Allergy Severe rash, itchy Verified 06/27/18 12:53 cephalexin [From Keflex] AdvReac Severe Unknown Verified 06/27/18 12:53 Reaction Details clarithromycin [From Biaxin] AdvReac Severe Nausea And Verified 06/27/18 12:53 Vomiting cyclobenzaprine AdvReac Severe See Comment Verified 06/27/18 12:53 [From Flexeril] divalproex sodium AdvReac Severe Abdominal Verified 06/27/18 12:53 [From Depakote] Pain doxycycline AdvReac Severe Rash Verified 06/27/18 12:53 ketorolac [From Toradol] AdvReac Severe Rash And Verified 06/27/18 12:53 Itching meperidine [From Demerol] AdvReac Severe Vomiting Verified 06/27/18 12:53 morphine AdvReac Severe Anaphylatic Verified 06/27/18 12:53 Shock naproxen AdvReac Severe Abdominal Verified 06/27/18 12:53 Pain Penicillins AdvReac Severe Hives/Diff. Verified 06/27/18 12:53 Breathing/I tching tramadol [From Ultram] AdvReac Severe Rash Verified 06/27/18 12:53 trimethoprim [From Bactrim] AdvReac Severe Nausea Verified 06/27/18 12:53 metaxalone [From Skelaxin] AdvReac Intermediate See Comment Verified 06/27/18 12 :53 miracle whip AdvReac Severe n/v, Uncoded 06/27/18 12:53 itchy. hives ragu spaghetti sauce AdvReac Severe n/v, Uncoded 06/27/18 12:53 hives, itchiness PMH/Surg Hx/FS Hx/Imm Hx Previously Healthy: No Endocrine/Hematology History: Denies: Hx Anticoagulant Therapy, Hx Blood Disorders, Hx Diabetes Cardiovascular History: Reports: Hx Syncope, Other Cardiovascular Problems/ Disorders - low blood pressure Denies: Hx Hypertension, Hx Pacemaker/ICD Respiratory History: Reports: Other Respiratory Problems/Disorders - insomnia Denies: Hx Asthma, Hx Chronic Obstructive Pulmonary Disease (COPD) GI History: Reports: Hx Gastroesophageal Reflux Disease - on med, Hx Irritable Bowel, Hx Ulcer - stomach ulcers and an ulcer in esophagus, Other GI Disorders - DIVERTICULITIS-? History: Reports: Other Problems/Disorders - polycystic ovarian syndrome Denies: Hx Dialysis, Hx Renal Disease Musculoskeletal History: Reports: Hx Arthritis, Hx Back Problems, Hx Orthopedic Injury, Hx Osteoporosis - spondylolisthesis, Hx Tendonitis, Other Musculoskeletal History - reports multiple fractures in past, chronic right arm pain and injury/ulnar Denies: Hx Rheumatoid Arthritis Sensory History: Denies: Hx Cataracts, Hx Contacts or Glasses, Hx Hearing Aid Opthamlomology History: Denies: Hx Cataracts, Hx Contacts or Glasses Neurological History: Reports: Hx Migraine - on med prn, Hx Nerve Disease - fibromyalgia, Hx Spinal Cord Injury - fx of L4, L5 S1, Other Neuro Impairments/ Disorders - reports she has a pituitary adenoma Psychiatric History: Reports: Hx Anxiety - NO MEDICATION FOR AT THIS TIME, Hx Depression - NO MEDICATION FOR AT THIS TIME, Hx Community Mental Health Tx - seen prior at [facility] in 2013 Denies: Hx Eating Disorder, Hx Panic Disorder, Hx Inpatient Treatment - no known, Hx of Violent Episodes Against Others, Hx Substance Abuse - Cancer History Cancer Type, Location and Year: None reported Hx Chemotherapy: No - Surgical History Surgery Procedure, Year, and Place: Right wrist surgery/RIGHT ELBOW 05/17/172017 RIGHT SHOULDER SURGERYx2. tonsillectomy 1989 [place]. right ovarian cyst removed 2006 [facility] [place] cholecystectomy 2006 [facility] [place]. D&C 2006 - [facility] [place]. teeth extraction ( one in office and one at [facility] [place] ear biopsy - 2014 [facility] [place]. ENDOSCOPIES/COLONOSCOPIES Hx Anesthesia Reactions: No - Immunization History Date of Tetanus Vaccine: UTD Date of Influenza Vaccine: NO Infectious Disease History: No Infectious Disease History: Denies: Hx Clostridium Difficile, Hx Hepatitis, Hx Human Immunodeficiency Virus (HIV), Hx of Known/Suspected MRSA, Hx Shingles, Hx Tuberculosis, Hx Known/ Suspected VRE, Hx Known/Suspected VRSA, History Other Infectious Disease, Traveled Outside the in Last 30 Days - Family History Known Family History: Positive: Cardiac Disease - mom, Diabetes - Social History Occupation: Unemployed Lives: With Family Alcohol Use: None Hx Substance Use: Yes - not currently Substance Use Type: Reports: None Substance Use Comment - Amount & Last Used: hx cannabis use Hx Tobacco Use: Yes Smoking Status (MU): Light Every Day Tobacco Smoker Type: Cigarettes Amount Used/How Often: 1/2-2 PPD X 15-17 YEARS Length of Time of Smoking/Using Tobacco: since 17yo Have You Smoked in the Last Year: Yes Review of Systems Positive: Dental Pain Musculoskeletal: Other - R shoulder pain Positive: Decreased ROM All Other Systems Reviewed And Are Negative: Yes Physical Exam - Summary Physical Exam Summary: Appearance: Well appearing, no pain distress Skin: warm, dry, reflects adequate perfusion Head/face: normal Eyes: EOMI, PARVEZ ENT: Tenderness of the L jaw, tenderness over the 17th and 18th teeth Neck: supple, non-tender Respiratory: CTA, breath sounds present Cardiovascular: RRR, pulses symmetrical Abdomen: non-tender, soft Bowel sounds : present Musculoskeletal: tenderness of the R shoulder , strength/ROM intact Neuro: normal, sensory motor intact, A&Ox3 Triage Information Reviewed: Yes Vital Signs On Initial Exam: Initial Vitals Temp Pulse Resp BP Pulse Ox 98.0 F 65 16 129/76 100 06/27/18 12:53 06/27/18 12:53 06/27/18 12:53 06/27/18 12:53 06/27/18 12:53 Vital Signs Reviewed: Yes Diagnostics - Vital Signs Vital Signs Temp Pulse Resp BP Pulse Ox 06/27/18 12:53 98.0 F 65 16 129/76 100 - Laboratory Lab Statement: Any lab studies that have been ordered have been reviewed, and results considered in the medical decision making process. - Radiology R Shoulder X-ray Radiology Interpretation Completed By: Radiologist - IMPRESSION: 1. MILD SUPERIOR POSITIONING OF THE HUMERAL HEAD. 2. NO EVIDENCE FOR FRACTURE. 3. SMALL LUCENT LESION IN THE PROXIMAL HUMERUS, UNCHANGED SINCE LIKELY FROM A PRIOR BICEPS TENODESIS, RECOMMEND CLINICAL CORRELATION. The ED physician reviewed this radiology report. Re-Evaluation - Re-Evaluation First Eval Re-Evaluation Time: 14:47 Change: Improved - I discussed the imaging results and discharge plan with the pt. Course/Dx - Course Course Of Treatment: A 33 year-old F presents to the ED with a CC of o R shoulder pain since 3 days ago. She had a rotator cuff surgery one month ago. She is unable to move her RUE. The pt also notes bilateral L jaw pain secondary to dental cavities. The dental pain that radiates to the L ear. A physical exam revealed tenderness of the R shoulder, L jaw, the 17th and 18th teeth. A R shoulder X-ray is unremarkable. In the ED course, pt was given Clindamycin 300 mg PO andOxycodone 1 tab PO which improved the symptoms. Patient will be discharged with a final Dx of R shoulder pain and dental pain. Pt is agreeable with this plan. Allergies noted. - Diagnoses Differential Diagnosis/HQI/PQRI: Positive: Strain, Sprain, Other - dental pain Provider Diagnoses: Pain, dental, Right shoulder pain Discharge - Sign-Out/Discharge Documenting (check all that apply): Patient Departure - DC - Discharge Plan Condition: Stable Disposition: HOME Prescriptions: Clindamycin HCl 300 mg PO QID #40 capsule oxyCODONE/Acetam5/325MG PREPAK [Percocet 5/325 TAB*] 1 tab PO TID #10 tab MDD 3 Patient Education Materials: Toothache (ED), Shoulder Pain (ED) Referrals: [facility] [Outside] Additional Instructions: Follow up with PCP in 2-3 days. Return to the ED for any new or worsening symptoms. - Billing Disposition and Condition Condition: STABLE Disposition: Home - Attestation Statements Document Initiated by Kvng: Yes Documenting Scribe: Antonia Siegel Provider For Whom Kvng is Documenting (Include Credential): Dr. Montana Mcgee MD Scribe Attestation: Antonia Trevizo scrsarojed for Dr. Montana Mcgee MD on 06/27/18 at 1641. Scribe Documentation Reviewed: Yes Provider Attestation: The documentation as recorded by the Antonia whittaker accurately reflects the service I personally performed and the decisions made by Dr. Montana allen MD Status of Scribe Document: Viewed
[2018-06-27 14:56] VITALS: BP 123/79
== END 2018-06-27 14:58 | disposition home or self-care (01) ==
LOC: ED 12:50
DX: M25.511 Pain in right shoulder (principal); K08.89 Other specified disorders of teeth and supporting structures; Z88.0 Allergy status to penicillin; F17.210 Nicotine dependence, cigarettes, uncomplicated
CPT/HCPCS: 99282; A9270-GY

== ENCOUNTER 2018-08-24 09:13 | Emergency (ER) | payer OTHER ==
[2018-08-24] MEDS ORDERED: Lidocaine 2% EPI 1:200000 MPF* 10 ML VIAL INJ ONE (10:12)
[2018-08-24] MEDS ORDERED: Bupivacaine 0.5% W/EPI SDV* 10 ML VIAL INJ ONE (10:12)
[2018-08-24] MEDS ORDERED: Clindamycin CAP* 150 MG PO ONE (10:14)
--- NOTE | 2018-08-24 10:18 | ED ---
Throat Pain/Nasal Congestion - HPI Summary HPI Summary: Pt is a 33 year old F presenting to the ED with a chief complaint of dental pain first onset about two years ago, mainly on her R molars but also on her L molars. She has tried to see multiple dentists and oral surgeons but they have not been able to take the teeth out. Pt reports vomiting, fever, and not sleeping. - History of Current Complaint Chief Complaint: EDDentalPain Time Seen by Provider: 08/24/18 10:09 Hx Obtained From: Patient Onset/Duration: Gradual Onset, Lasting Weeks, Still Present Severity: Severe - Allergies/Home Medications Allergies/Adverse Reactions: Allergies Allergy/AdvReac Type Severity Reaction Status Date / Time Bleach (Sodium Hypochlorite) Allergy Severe rash, itchy Verified 08/24/18 10:12 cephalexin [From Keflex] AdvReac Severe Unknown Verified 08/24/18 10:12 Reaction Details clarithromycin [From Biaxin] AdvReac Severe Nausea And Verified 08/24/18 10:12 Vomiting cyclobenzaprine AdvReac Severe See Comment Verified 08/24/18 10:12 [From Flexeril] divalproex sodium AdvReac Severe Abdominal Verified 08/24/18 10:12 [From Depakote] Pain doxycycline AdvReac Severe Rash Verified 08/24/18 10:12 ketorolac [From Toradol] AdvReac Severe Rash And Verified 08/24/18 10:12 Itching meperidine [From Demerol] AdvReac Severe Vomiting Verified 08/24/18 10:12 morphine AdvReac Severe Anaphylatic Verified 08/24/18 10:12 Shock naproxen AdvReac Severe Abdominal Verified 08/24/18 10:12 Pain Penicillins AdvReac Severe Hives/Diff. Verified 08/24/18 10:12 Breathing/I tching tramadol [From Ultram] AdvReac Severe Rash Verified 08/24/18 10:12 trimethoprim [From Bactrim] AdvReac Severe Nausea Verified 08/24/18 10:12 metaxalone [From Skelaxin] AdvReac Intermediate See Comment Verified 08/24/18 10 :12 miracle whip AdvReac Severe n/v, Uncoded 08/24/18 10:12 itchy. hives ragu spaghetti sauce AdvReac Severe n/v, Uncoded 08/24/18 10:12 hives, itchiness PMH/Surg Hx/FS Hx/Imm Hx Previously Healthy: No Endocrine/Hematology History: Denies: Hx Anticoagulant Therapy, Hx Blood Disorders, Hx Diabetes Cardiovascular History: Reports: Hx Syncope, Other Cardiovascular Problems/ Disorders - low blood pressure Denies: Hx Hypertension, Hx Pacemaker/ICD Respiratory History: Reports: Other Respiratory Problems/Disorders - insomnia Denies: Hx Asthma, Hx Chronic Obstructive Pulmonary Disease (COPD) GI History: Reports: Hx Gastroesophageal Reflux Disease - on med, Hx Irritable Bowel, Hx Ulcer - stomach ulcers and an ulcer in esophagus, Other GI Disorders - DIVERTICULITIS-? History: Reports: Other Problems/Disorders - polycystic ovarian syndrome Denies: Hx Dialysis, Hx Renal Disease Musculoskeletal History: Reports: Hx Arthritis, Hx Back Problems, Hx Orthopedic Injury, Hx Osteoporosis - spondylolisthesis, Hx Tendonitis, Other Musculoskeletal History - reports multiple fractures in past, chronic right arm pain and injury/ulnar Denies: Hx Rheumatoid Arthritis Sensory History: Denies: Hx Cataracts, Hx Contacts or Glasses, Hx Hearing Aid Opthamlomology History: Denies: Hx Cataracts, Hx Contacts or Glasses Neurological History: Reports: Hx Migraine - on med prn, Hx Nerve Disease - fibromyalgia, Hx Spinal Cord Injury - fx of L4, L5 S1, Other Neuro Impairments/ Disorders - reports she has a pituitary adenoma Psychiatric History: Reports: Hx Anxiety - NO MEDICATION FOR AT THIS TIME, Hx Depression - NO MEDICATION FOR AT THIS TIME, Hx Community Mental Health Tx - seen prior at [facility] in 2013 Denies: Hx Eating Disorder, Hx Panic Disorder, Hx Inpatient Treatment - no known, Hx of Violent Episodes Against Others, Hx Substance Abuse - Cancer History Cancer Type, Location and Year: None reported Hx Chemotherapy: No - Surgical History Surgery Procedure, Year, and Place: Right wrist surgery/RIGHT ELBOW 05/17/172017 RIGHT SHOULDER SURGERYx2. tonsillectomy 1989 - [place]. right ovarian cyst removed 2006 [facility] [place]. cholecystectomy 2006 [facility] [place]. D&C 2006 - [facility] [place]. teeth extraction ( one in office and one at [facility] [place]). ear biopsy - 2014 [facility] [place]. ENDOSCOPIES/COLONOSCOPIES Hx Anesthesia Reactions: No - Immunization History Date of Tetanus Vaccine: UTD Date of Influenza Vaccine: NO Immunizations Up to Date: Yes Infectious Disease History: No Infectious Disease History: Denies: Hx Clostridium Difficile, Hx Hepatitis, Hx Human Immunodeficiency Virus (HIV), Hx of Known/Suspected MRSA, Hx Shingles, Hx Tuberculosis, Hx Known/ Suspected VRE, Hx Known/Suspected VRSA, History Other Infectious Disease, Traveled Outside the [place] in Last 30 Days - Family History Known Family History: Positive: Cardiac Disease - mom, Diabetes - Social History Alcohol Use: None Hx Substance Use: Yes - not currently Substance Use Type: Reports: None Substance Use Comment - Amount & Last Used: hx cannabis use Hx Tobacco Use: Yes Smoking Status (MU): Light Every Day Tobacco Smoker Type: Cigarettes Amount Used/How Often: 1/2-2 PPD X 15-17 YEARS Length of Time of Smoking/Using Tobacco: since 17yo Have You Smoked in the Last Year: Yes Review of Systems Positive: Fever Positive: Dental Pain Positive: Vomiting Positive: Other - not sleeping All Other Systems Reviewed And Are Negative: Yes Physical Exam - Summary Physical Exam Summary: Appearance: Well-appearing, Well-nourished, lying in bed comfortable Skin: Warm, dry, no obvious rash Eyes: sclera anicteric, no conjunctival pallor ENT: mucous membranes moist, swelling in the R maxillary area Neck: deferred Respiratory: No signs of respiratory distress Cardiovascular: Appears well perfused, pulses are nml Abdomen: deferred Musculoskeletal: Moving all 4 extremities without obvious discomfort Neurological: Awake and alert, mentation is normal, speech is fluent and appropriate Psychiatric: affect is normal, does not appear anxious or depressed Triage Information Reviewed: Yes Vital Signs On Initial Exam: Initial Vitals Temp Pulse Resp BP Pulse Ox 101.7 F 80 16 157/81 99 08/24/18 09:24 08/24/18 09:24 08/24/18 09:24 08/24/18 09:24 08/24/18 09:24 Vital Signs Reviewed: Yes Diagnostics - Vital Signs Vital Signs Temp Pulse Resp BP Pulse Ox 08/24/18 09:24 101.7 F 80 16 157/81 99 - Laboratory Lab Statement: Any lab studies that have been ordered have been reviewed, and results considered in the medical decision making process. EENT Course/Dx - Course Course Of Treatment: Pt is a 33 year old F presenting to the ED with a chief complaint of dental pain first onset about two years ago, mainly on her R molars but also on her L molars. Pt reports vomiting, fever, and not sleeping. Pt given dental block on the R upper third molar, consisting of lidocaine with epi and marcaine with epi, as well as abx to treat the infection. Before discharge the pt became quite irate, demanding opioid analgesics as the block reportedly did not work. I checked her on the INTENSIVE CARE UNIT REGISTERED NURSE system and there are rxs for opiods, 17 in total over the past year. The patient ultimately became verbally abusive to the RN, threatening to call her sports lawyer, and then left before I was able to get to the room. Reportedly this is her typical presentation. While I am sympathetic to the pain, in general I do not prescribe opioids for recurrent dental abscess due to their risks, and in particular with this patient who has demonstrated an unwillingness or inability to get definitive care for her tooth problems and has numberous rxs for opioids over the past year, I would definitely not prescribe them. - Diagnoses Provider Diagnoses: Dental abscess Discharge - Sign-Out/Discharge Documenting (check all that apply): Patient Departure Patient Received Moderate/Deep Sedation with Procedure: No - Discharge Plan Condition: Good Disposition: HOME Prescriptions: Clindamycin HCl 300 mg PO TID #30 capsule Ondansetron ODT TAB* [Zofran 4 MG Odt TAB*] 8 mg PO Q6H PRN #10 tab.odt PRN Reason: Nausea Patient Education Materials: Dental Abscess (ED) [place] [facility] [place] [facility] [Outside] Additional Instructions: The antibiotics should temporize the problem, but of course the tooth needs to be extracted to avoid further problems. - Billing Disposition and Condition Condition: GOOD Disposition: Home - Attestation Statements Document Initiated by Kvng: Yes Documenting Scribe: Carmen Larkin Provider For Whom Kvng is Documenting (Include Credential): Dax Dorantes MD. Scribe Attestation: Carmen Trevizo, scribed for Dax Dorantes MD. on 08/28/18 at 0401. Scribe Documentation Reviewed: Yes Provider Attestation: The documentation as recorded by the Carmen whittaker accurately reflects the service I personally performed and the decisions made by me, Dax Dorantes MD. Status of Scribe Document: Viewed
[2018-08-24] MEDS ORDERED: Lidocaine 2% EPI 1:200000 MPF*10-20 ML VIAL ONE (10:23)
[2018-08-24 11:11] VITALS: BP 0/0
== END 2018-08-24 11:09 | disposition home or self-care (01) ==
LOC: ED 09:13
DX: K04.7 Periapical abscess without sinus (principal); R11.10 Vomiting, unspecified; R50.9 Fever, unspecified; K21.9 Gastro-esophageal reflux disease without esophagitis; G43.909 Migraine, unspecified, not intractable, without status migrainosus; Z88.1 Allergy status to other antibiotic agents; Z88.5 Allergy status to narcotic agent; Z88.0 Allergy status to penicillin; Z88.8 Allergy status to other drugs, medicaments and biological substances; F17.210 Nicotine dependence, cigarettes, uncomplicated
CPT/HCPCS: 99282; A9270-GY

== ENCOUNTER 2018-09-03 11:08 | Emergency (ER) | payer OTHER ==
[2018-09-03] MEDS ORDERED: NS 0.9% 1000 ML** 1,000 ML IV ONE (12:15)
[2018-09-03 12:40] LABS: ABS Basophils 0.1 10^3/ul (0-0.2); ABS Eosinophils 0.1 10^3/ul (0-0.6); ABS Lymphocytes 1.7 10^3/ul (1.0-4.8); ABS Monocytes 0.4 10^3/ul (0-0.8); ABS Neutrophils 3.9 10^3/ul (1.5-7.7); ABS Nucleated RBC 0 10^3/ul; Eosinophil % 2.3 %; Hematocrit 40 % (35-47); Hemoglobin 13.7 g/dl (12.0-16.0); Mean Corpuscular HGB Conc 34 g/dl (31-36); Mean Corpuscular Hemoglobin 29 pg (27-31); Mean Corpuscular Volume 87 fL (80-97); Mean Platelet Volume 9.5 fL (7.4-10.4); Nucleated Red Blood Cells % 0; Platelet Count 242 10^3/ul (150-450); Red Blood Count 4.66 10^6/ul (4.00-5.40); Red Cell Distribution Width 13 % (10.5-15); White Blood Count 6.1 10^3/ul (3.5-10.8)
[2018-09-03 12:45] LABS: Urine Appearance Cloudy; Urine Bilirubin Negative (Negative); Urine Blood Negative (Negative); Urine Color Yellow; Urine Glucose Negative (Negative); Urine Ketones Negative (Negative); Urine Nitrite Negative (Negative); Urine Protein Negative (Negative); Urine Specific Gravity 1.006 (1.010-1.030); Urine Urobilinogen Negative (Negative)
[2018-09-03 12:54] LABS: Albumin 4.4 g/dL (3.2-5.2); Albumin/Globulin Ratio 1.8 (1-3); BUN/Creatinine Ratio 9.5 (8-20); Calcium 9.2 mg/dL (8.6-10.3); EGFR African American 110.1 (>60); Globulin 2.5 g/dL (2-4); Potassium 4.3 mmol/L (3.5-5.0); Total Bilirubin 0.5 mg/dL (0.2-1.0); Total Protein 6.9 g/dL (6.4-8.9)
[2018-09-03] MEDS ORDERED: RHO D Immune Globulin (HUMAN)* 300 MCG = 1,500 I.U. INJ IM SCH (14:00)
[2018-09-03 14:57] VITALS: BP 106/68
--- NOTE | 2018-09-03 15:49 | ED ---
- HPI Summary HPI Summary: Patient is a 33-year-old female who presents emergency Department with pelvic pain and spotting in early . Patient is unsure how many weeks along she is but states her last menstrual cycle was in July. Patient states today she developed lower abdominal pain and had some pink spotting on the toilet paper. She notes a clearish discharge. She denies urinary symptoms. Patient has a history of pituitary tumor polycystic ovary syndrome. 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 Symptoms are moderate in severity. No current modifying factors. - History of Current Complaint Chief Complaint: EDOBProblems Stated Complaint: BLEEDING Time Seen by Provider: 09/03/18 11:53 Hx Obtained From: Patient Pain Intensity: 0 - Assessment Hx Now: No SAB: 4 IEA: 1 Hx Hysterectomy: No - Additional Pertinent History Primary Care Physician: [id number] Maternal Blood Type and Rh: A Negative - Allergies/Home Medications Allergies/Adverse Reactions: Allergies Allergy/AdvReac Type Severity Reaction Status Date / Time Bleach (Sodium Hypochlorite) Allergy Severe rash, itchy Verified 09/03/18 12:27 cephalexin [From Keflex] AdvReac Severe Unknown Verified 09/03/18 12:27 Reaction Details clarithromycin [From Biaxin] AdvReac Severe Nausea And Verified 09/03/18 12:27 Vomiting cyclobenzaprine AdvReac Severe See Comment Verified 09/03/18 12:27 [From Flexeril] divalproex sodium AdvReac Severe Abdominal Verified 09/03/18 12:27 [From Depakote] Pain doxycycline AdvReac Severe Rash Verified 09/03/18 12:27 ketorolac [From Toradol] AdvReac Severe Rash And Verified 09/03/18 12:27 Itching meperidine [From Demerol] AdvReac Severe Vomiting Verified 09/03/18 12:27 morphine AdvReac Severe Anaphylatic Verified 09/03/18 12:27 Shock naproxen AdvReac Severe Abdominal Verified 09/03/18 12:27 Pain Penicillins AdvReac Severe Hives/Diff. Verified 09/03/18 12:27 Breathing/I tching tramadol [From Ultram] AdvReac Severe Rash Verified 09/03/18 12:27 trimethoprim [From Bactrim] AdvReac Severe Nausea Verified 09/03/18 12:27 metaxalone [From Skelaxin] AdvReac Intermediate See Comment Verified 09/03/18 12 :27 miracle whip AdvReac Severe n/v, Uncoded 09/03/18 12:27 itchy. hives ragu spanedaetti sauce AdvReac Severe n/v, Uncoded 09/03/18 12:27 hives, itchiness Home Medications: Home Medications hydrOXYzine HCL TAB* [Atarax 25 MG TAB*] 25 mg PO TID PRN 09/03/18 [History Confirmed 09/03/18] PMH/Surg Hx/FS Hx/Imm Hx Previously Healthy: Yes Endocrine/Hematology History: Denies: Hx Anticoagulant Therapy, Hx Blood Disorders, Hx Diabetes Cardiovascular History: Reports: Hx Syncope, Other Cardiovascular Problems/ Disorders - low blood pressure Denies: Hx Hypertension, Hx Pacemaker/ICD Respiratory History: Reports: Other Respiratory Problems/Disorders - insomnia Denies: Hx Asthma, Hx Chronic Obstructive Pulmonary Disease (COPD) GI History: Reports: Hx Gastroesophageal Reflux Disease - on med, Hx Irritable Bowel, Hx Ulcer - stomach ulcers and an ulcer in esophagus, Other GI Disorders - DIVERTICULITIS-? History: Reports: Other Problems/Disorders - polycystic ovarian syndrome Denies: Hx Dialysis, Hx Renal Disease Musculoskeletal History: Reports: Hx Arthritis, Hx Back Problems, Hx Orthopedic Injury, Hx Osteoporosis - spondylolisthesis, Hx Tendonitis, Other Musculoskeletal History - reports multiple fractures in past, chronic right arm pain and injury/ulnar Denies: Hx Rheumatoid Arthritis Sensory History: Denies: Hx Cataracts, Hx Contacts or Glasses, Hx Hearing Aid Opthamlomology History: Denies: Hx Cataracts, Hx Contacts or Glasses Neurological History: Reports: Hx Migraine - on med prn, Hx Nerve Disease - fibromyalgia, Hx Spinal Cord Injury - fx of L4, L5 S1, Other Neuro Impairments/ Disorders - reports she has a pituitary adenoma Psychiatric History: Reports: Hx Anxiety - NO MEDICATION FOR AT THIS TIME, Hx Depression - NO MEDICATION FOR AT THIS TIME, Hx Community Mental Health Tx - seen prior at [facility] in 2013 Denies: Hx Eating Disorder, Hx Panic Disorder, Hx Inpatient Treatment - no known, Hx of Violent Episodes Against Others, Hx Substance Abuse - Cancer History Cancer Type, Location and Year: None reported Hx Chemotherapy: No - Surgical History Surgery Procedure, Year, and Place: Right wrist surgery/RIGHT ELBOW 05/17/172017 RIGHT SHOULDER SURGERYx2. tonsillectomy 1989 - [place]. right ovarian cyst removed 2006 [facility] [place]. cholecystectomy 2006 - [facility] [place]. D&C 2006 - [facility] [place]. teeth extraction ( one in office and one at [facility] [place]). ear biopsy - 2014 [facility] [place]. ENDOSCOPIES/COLONOSCOPIES Hx Anesthesia Reactions: No - Immunization History Date of Tetanus Vaccine: UTD Date of Influenza Vaccine: NO Infectious Disease History: No Infectious Disease History: Denies: Hx Clostridium Difficile, Hx Hepatitis, Hx Human Immunodeficiency Virus (HIV), Hx of Known/Suspected MRSA, Hx Shingles, Hx Tuberculosis, Hx Known/ Suspected VRE, Hx Known/Suspected VRSA, History Other Infectious Disease, Traveled Outside the in Last 30 Days - Family History Known Family History: Positive: Cardiac Disease - mom, Diabetes - Social History Occupation: Unemployed Lives: With Family Alcohol Use: None Hx Substance Use: Yes - not currently Substance Use Type: Reports: None Substance Use Comment - Amount & Last Used: hx cannabis use Hx Tobacco Use: Yes Smoking Status (MU): Light Every Day Tobacco Smoker Type: Cigarettes Amount Used/How Often: 1/2-2 PPD X 15-17 YEARS Length of Time of Smoking/Using Tobacco: since 17yo Have You Smoked in the Last Year: Yes Review of Systems Constitutional: Negative Cardiovascular: Negative Respiratory: Negative Positive: Abdominal Pain. Negative: Vomiting, Diarrhea, Nausea Positive: other - spotting All Other Systems Reviewed And Are Negative: Yes Physical Exam - Physical Exam Triage Information Reviewed: Yes Vital Signs Reviewed: Yes Appearance: Positive: Well-Appearing - Pt. lying in bed in NAD. Friend present. Skin: Positive: Warm, Dry Head/Face: Positive: Normal Head/Face Inspection Eyes: Positive: Normal, EOMI Neck: Positive: Supple Respiratory/Lung Sounds: Positive: Clear to Auscultation, Breath Sounds Present Cardiovascular: Positive: Normal, RRR Abdomen Description: Positive: Other: - Suprapubic tenderenss without rebound tenderness or guarding. Pelvic Exam: Other - Exam performed with cytogenetics technologist in room, [facility]. External genitalia is unremarkable. Speculum exam reveals a clearish discharge from cervix without bleeding. No lesions. Neurological: Positive: Normal, CN Intact II-III Psychiatric: Positive: Affect/Mood Appropriate Diagnostics - Vital Signs Vital Signs Temp Pulse Resp BP Pulse Ox 09/03/18 14:57 98 F 72 16 106/68 100 09/03/18 12:48 80 16 96/58 100 09/03/18 11:19 85 16 109/75 95 09/03/18 11:18 97.8 F 81 18 109/75 97 - Laboratory Lab Results: Lab Results 09/03/18 09/03/18 09/03/18 Range/Units 12:28 12:28 12:28 WBC 6.1 (3.5-10.8) 10^3/ul RBC 4.66 (4.00-5.40) 10^6/ul Hgb 13.7 (12.0-16.0) g/dl Hct 40 (35-47) % MCV 87 (80-97) fL MCH 29 (27-31) pg MCHC 34 (31-36) g/dl RDW 13 (10.5-15) % Plt Count 242 (150-450) 10^3/ul MPV 9.5 (7.4-10.4) fL Neut % (Auto) 63.2 % Lymph % (Auto) 27.0 % O'Brien % (Auto) 6.6 % Eos % (Auto) 2.3 % Baso % (Auto) 0.9 % Absolute Neuts (auto) 3.9 (1.5-7.7) 10^3/ul Absolute Lymphs (auto) 1.7 (1.0-4.8) 10^3/ul Absolute Monos (auto) 0.4 (0-0.8) 10^3/ul Absolute Eos (auto) 0.1 (0-0.6) 10^3/ul Absolute Basos (auto) 0.1 (0-0.2) 10^3/ul Absolute Nucleated RBC 0 10^3/ul Nucleated RBC % 0 Sodium 135 (135-145) mmol/L Potassium 4.3 (3.5-5.0) mmol/L Chloride 106 (101-111) mmol/L Carbon Dioxide 26 (22-32) mmol/L Anion Gap 3 (2-11) mmol/L BUN 7 (6-24) mg/dL Creatinine 0.74 (0.51-0.95) mg/dL Est GFR ( Amer) 110.1 (>60) Est GFR (Non-Af Amer) 91.0 (>60) BUN/Creatinine Ratio 9.5 (8-20) Glucose 88 (70-100) mg/dL Calcium 9.2 (8.6-10.3) mg/dL Total Bilirubin 0.50 (0.2-1.0) mg/dL AST 11 L (13-39) U/L ALT 10 (7-52) U/L Alkaline Phosphatase 36 (34-104) U/L Total Protein 6.9 (6.4-8.9) g/dL Albumin 4.4 (3.2-5.2) g/dL Globulin 2.5 (2-4) g/dL Albumin/Globulin Ratio 1.8 (1-3) Beta HCG, Quant 32176.00 mIU/mL Urine Color Urine Appearance Urine pH (5-9) Ur Specific Powell (1.010-1.030) Urine Protein (Negative) Urine Ketones (Negative) Urine Blood (Negative) Urine Nitrate (Negative) Urine Bilirubin (Negative) Urine Urobilinogen (Negative) Ur Leukocyte Esterase (Negative) Urine Glucose (Negative) Blood Type A Negative 09/03/18 Range/Units 12:30 WBC (3.5-10.8) 10^3/ul RBC (4.00-5.40) 10^6/ul Hgb (12.0-16.0) g/dl Hct (35-47) % MCV (80-97) fL MCH (27-31) pg MCHC (31-36) g/dl RDW (10.5-15) % Plt Count (150-450) 10^3/ul MPV (7.4-10.4) fL Neut % (Auto) % Lymph % (Auto) % O'Brien % (Auto) % Eos % (Auto) % Baso % (Auto) % Absolute Neuts (auto) (1.5-7.7) 10^3/ul Absolute Lymphs (auto) (1.0-4.8) 10^3/ul Absolute Monos (auto) (0-0.8) 10^3/ul Absolute Eos (auto) (0-0.6) 10^3/ul Absolute Basos (auto) (0-0.2) 10^3/ul Absolute Nucleated RBC 10^3/ul Nucleated RBC % Sodium (135-145) mmol/L Potassium (3.5-5.0) mmol/L Chloride (101-111) mmol/L Carbon Dioxide (22-32) mmol/L Anion Gap (2-11) mmol/L BUN (6-24) mg/dL Creatinine (0.51-0.95) mg/dL Est GFR ( Amer) (>60) Est GFR (Non-Af Amer) (>60) BUN/Creatinine Ratio (8-20) Glucose (70-100) mg/dL Calcium (8.6-10.3) mg/dL Total Bilirubin (0.2-1.0) mg/dL AST (13-39) U/L ALT (7-52) U/L Alkaline Phosphatase (34-104) U/L Total Protein (6.4-8.9) g/dL Albumin (3.2-5.2) g/dL Globulin (2-4) g/dL Albumin/Globulin Ratio (1-3) Beta HCG, Quant mIU/mL Urine Color Yellow Urine Appearance Cloudy Urine pH 9.0 (5-9) Ur Specific Powell 1.006 L (1.010-1.030) Urine Protein Negative (Negative) Urine Ketones Negative (Negative) Urine Blood Negative (Negative) Urine Nitrate Negative (Negative) Urine Bilirubin Negative (Negative) Urine Urobilinogen Negative (Negative) Ur Leukocyte Esterase Negative (Negative) Urine Glucose Negative (Negative) Blood Type Result Diagrams: 09/03/18 12:28 09/03/18 12:28 Lab Statement: Any lab studies that have been ordered have been reviewed, and results considered in the medical decision making process. Course/Dx - Course Course Of Treatment: Patient presenting for nonbleeding early . She is afebrile stable vital signs. Blood work is unremarkable other than beta hCG elevated at 85,000 and blood type is A-. Ultrasound shows a live intrauterine six-week with a small subchorionic hemorrhage, reading per radiology. Pelvic exam unremarkable, culture sent. Patient was given program. Advised patient to follow up with OB next week for recheck. Pelvic rest. We'll return to the ER if symptoms change or worsen. Patient understands and agrees with plan. - Differential Diagnosis/HQI/PQRI: Ectopic , First Trimester Bleeding, Early - Diagnoses Provider Diagnoses: Miscarriage, threatened, early , Subchorionic hemorrhage Discharge - Sign-Out/Discharge Documenting (check all that apply): Patient Departure Patient Received Moderate/Deep Sedation with Procedure: No - Discharge Plan Condition: Good Disposition: HOME Patient Education Materials: Threatened Miscarriage (ED) Referrals: Simón Perez MD [Medical Doctor] - Additional Instructions: Call Dr. Perez's office on Wednesday to schedule a follow up appointment Avoid sexual intercourse until seen by OB Avoid heavy lifting Return to ER if symptoms change or worsen - Billing Disposition and Condition Condition: GOOD Disposition: Home
[2018-09-05 14:04] LABS: Neisseria gonorrhoeae (GC) RNA Negative (Negative)
[2018-09-05 14:24] LABS: Trichomonas vaginalis Result Negative (Negative)
== END 2018-09-03 14:57 | disposition home or self-care (01) ==
LOC: ED 11:08
DX: O20.0 Threatened abortion (principal); O20.8 Other hemorrhage in early pregnancy; O99.331 Smoking (tobacco) complicating pregnancy, first trimester; F17.210 Nicotine dependence, cigarettes, uncomplicated; Z3A.01 Less than 8 weeks gestation of pregnancy
CPT/HCPCS: 36415; 76801; 80053; 81003; 84702; 85025; 86900; 86901; 87480; 87491; 87510; 87591; 87661; 96360; 96361; 96372; 99283; J2790

== ENCOUNTER 2018-09-26 14:36 | Emergency (ER) | payer OTHER ==
[2018-09-26 14:42] VITALS: BP 138/94
== END 2018-09-26 16:50 | disposition left against medical advice (07) ==
LOC: ED 14:36
DX: O26.891 Other specified pregnancy related conditions, first trimester (principal); R10.9 Unspecified abdominal pain; Z3A.10 10 weeks gestation of pregnancy; Z53.21 Procedure and treatment not carried out due to patient leaving prior to being seen by health care provider

== ENCOUNTER 2018-10-24 11:44 | Emergency (ER) | payer OTHER ==
[2018-10-24 11:51] VITALS: BP 115/77
== END 2018-10-24 13:20 | disposition left against medical advice (07) ==
LOC: ED 11:44
DX: O26.92 Pregnancy related conditions, unspecified, second trimester (principal); M79.601 Pain in right arm; M79.604 Pain in right leg; M54.9 Dorsalgia, unspecified; R10.9 Unspecified abdominal pain; Z3A.14 14 weeks gestation of pregnancy; Z53.21 Procedure and treatment not carried out due to patient leaving prior to being seen by health care provider; Y09 Assault by unspecified means

== ENCOUNTER 2018-11-04 11:39 | Emergency (ER) | payer OTHER ==
[2018-11-04] MEDS ORDERED: NS 0.9% 1000 ML** 1,000 ML IV ONE (13:15)
[2018-11-04] MEDS ORDERED: Metoclopramide IV* 5 MG/ML 2 ML VIAL IV ONE (13:16)
--- NOTE | 2018-11-04 13:17 | ED ---
- HPI Summary HPI Summary: Pt. is a 33 y.o female who presents to the ER for upper and lower abd. pain and N/V. Pt. is currently 15 weeks gestation and follows with local OB. Pt. states she has been having intermittent N/V throughout . Pt. also notes she has a hx of gastric ulcers and believes she has a hiatal hernia. Pt. notes intermittent light vaginal bleeding. Symptoms are moderate in severity. No current modifying factors. Pt. taking phenergan and prilosec on a daily basis. - History of Current Complaint Chief Complaint: EDOBProblems Stated Complaint: 15 WKS PREG/VOMITING/POSS HERNIA/CNT EAT/DRINKPERP Time Seen by Provider: 11/04/18 13:07 Hx Obtained From: Patient Pain Intensity: 8 - Assessment Hx Now: No SAB: 4 IEA: 1 Hx Hysterectomy: No - Additional Pertinent History Primary Care Physician: [id number] Maternal Blood Type and Rh: A Negative - Allergies/Home Medications Allergies/Adverse Reactions: Allergies Allergy/AdvReac Type Severity Reaction Status Date / Time Bleach (Sodium Hypochlorite) Allergy Severe rash, itchy Verified 11/04/18 11:55 cephalexin [From Keflex] AdvReac Severe Unknown Verified 11/04/18 11:55 Reaction Details clarithromycin [From Biaxin] AdvReac Severe Nausea And Verified 11/04/18 11:55 Vomiting cyclobenzaprine AdvReac Severe See Comment Verified 11/04/18 11:55 [From Flexeril] divalproex sodium AdvReac Severe Abdominal Verified 11/04/18 11:55 [From Depakote] Pain doxycycline AdvReac Severe Rash Verified 11/04/18 11:55 ketorolac [From Toradol] AdvReac Severe Rash And Verified 11/04/18 11:55 Itching meperidine [From Demerol] AdvReac Severe Vomiting Verified 11/04/18 11:55 morphine AdvReac Severe Anaphylatic Verified 11/04/18 11:55 Shock naproxen AdvReac Severe Abdominal Verified 11/04/18 11:55 Pain Penicillins AdvReac Severe Hives/Diff. Verified 11/04/18 11:55 Breathing/I tching tramadol [From Ultram] AdvReac Severe Rash Verified 11/04/18 11:55 trimethoprim [From Bactrim] AdvReac Severe Nausea Verified 11/04/18 11:55 metaxalone [From Skelaxin] AdvReac Intermediate See Comment Verified 11/04/18 11 :55 miracle whip AdvReac Severe n/v, Uncoded 09/03/18 12:27 itchy. hives ragu spaghetti sauce AdvReac Severe n/v, Uncoded 09/03/18 12:27 hives, itchiness PMH/Surg Hx/FS Hx/Imm Hx Previously Healthy: Yes Endocrine/Hematology History: Denies: Hx Anticoagulant Therapy, Hx Blood Disorders, Hx Diabetes Cardiovascular History: Reports: Hx Syncope, Other Cardiovascular Problems/ Disorders - low blood pressure Denies: Hx Hypertension, Hx Pacemaker/ICD Respiratory History: Reports: Other Respiratory Problems/Disorders - insomnia Denies: Hx Asthma, Hx Chronic Obstructive Pulmonary Disease (COPD) GI History: Reports: Hx Gastroesophageal Reflux Disease - on med, Hx Irritable Bowel, Hx Ulcer - stomach ulcers and an ulcer in esophagus, Other GI Disorders - DIVERTICULITIS-? History: Reports: Other Problems/Disorders - polycystic ovarian syndrome Denies: Hx Dialysis, Hx Renal Disease Musculoskeletal History: Reports: Hx Arthritis, Hx Back Problems, Hx Orthopedic Injury, Hx Osteoporosis - spondylolisthesis, Hx Tendonitis, Other Musculoskeletal History - reports multiple fractures in past, chronic right arm pain and injury/ulnar Denies: Hx Rheumatoid Arthritis Sensory History: Denies: Hx Cataracts, Hx Contacts or Glasses, Hx Hearing Aid Opthamlomology History: Denies: Hx Cataracts, Hx Contacts or Glasses Neurological History: Reports: Hx Migraine - on med prn, Hx Nerve Disease - fibromyalgia, Hx Spinal Cord Injury - fx of L4, L5 S1, Other Neuro Impairments/ Disorders - reports she has a pituitary adenoma Psychiatric History: Reports: Hx Anxiety - NO MEDICATION FOR AT THIS TIME, Hx Depression - NO MEDICATION FOR AT THIS TIME, Hx Community Mental Health Tx - seen prior at [facility] in 2013 Denies: Hx Eating Disorder, Hx Panic Disorder, Hx Inpatient Treatment - no known, Hx of Violent Episodes Against Others, Hx Substance Abuse - Cancer History Cancer Type, Location and Year: None reported Hx Chemotherapy: No - Surgical History Surgery Procedure, Year, and Place: Right wrist surgery/RIGHT ELBOW 05/17/17 2018 RIGHT SHOULDER SURGERYx2. tonsillectomy 1989 [place] . [place] [facility] [place] [facility] [place] [facility] [place] ( [place] [facility] [place] [facility] [place] ENDOSCOPIES/COLONOSCOPIES Hx Anesthesia Reactions: No - Immunization History Date of Tetanus Vaccine: UTD Date of Influenza Vaccine: NO Infectious Disease History: No Infectious Disease History: Denies: Hx Clostridium Difficile, Hx Hepatitis, Hx Human Immunodeficiency Virus (HIV), Hx of Known/Suspected MRSA, Hx Shingles, Hx Tuberculosis, Hx Known/ Suspected VRE, Hx Known/Suspected VRSA, History Other Infectious Disease, Traveled Outside the in Last 30 Days - Family History Known Family History: Positive: Cardiac Disease - mom, Diabetes, Non- Contributory - Social History Occupation: Unemployed Lives: With Family Alcohol Use: None Hx Substance Use: Yes - not currently Substance Use Type: Reports: None Substance Use Comment - Amount & Last Used: hx cannabis use Hx Tobacco Use: Yes Smoking Status (MU): Light Every Day Tobacco Smoker Type: Cigarettes Amount Used/How Often: 1/2-2 PPD X 15-17 YEARS Length of Time of Smoking/Using Tobacco: since 17yo Have You Smoked in the Last Year: Yes Review of Systems Constitutional: Negative Negative: Fever, Chills Eyes: Negative ENT: Negative Cardiovascular: Negative Negative: Palpitations, Chest Pain Respiratory: Negative Negative: Shortness Of Breath, Cough Positive: Abdominal Pain, Vomiting, Diarrhea, Nausea Positive: other - vaginal bleeding Skin: Negative Neurological: Negative All Other Systems Reviewed And Are Negative: Yes Physical Exam - Physical Exam Triage Information Reviewed: Yes Vital Signs Reviewed: Yes Appearance: Positive: Pain Distress - Pt. sitting up dry heaving into trash can. Appears uncomfortable but nontoxic. family member in hallway Skin: Positive: Warm, Dry Head/Face: Positive: Normal Head/Face Inspection Eyes: Positive: Normal, EOMI, PARVEZ Neck: Positive: Supple Respiratory/Lung Sounds: Positive: Clear to Auscultation, Breath Sounds Present Cardiovascular: Positive: Normal, RRR Abdomen Description: Positive: Other: - Diffuse tenderness throughout entire abd. No rebound tenderness or guarding.. Negative: CVA Tenderness (R), CVA Tenderness (L) Musculoskeletal: Positive: Normal, Strength/ROM Intact Neurological: Positive: Normal, CN Intact II-III Psychiatric: Positive: Affect/Mood Appropriate Diagnostics - Vital Signs Vital Signs Temp Pulse Resp BP Pulse Ox 11/04/18 11:51 97.4 F 88 18 125/61 99 - Laboratory Result Diagrams: 11/04/18 13:54 11/04/18 13:54 Lab Statement: Any lab studies that have been ordered have been reviewed, and results considered in the medical decision making process. Course/Dx - Differential Diagnosis/HQI/PQRI: Spontaneous , Threatened , Hyperemesis Gravidarum - Diagnoses Provider Diagnoses: Gastritis, Abdominal pain during intrauterine , Threatened miscarriage Discharge - Sign-Out/Discharge Documenting (check all that apply): Patient Departure Patient Received Moderate/Deep Sedation with Procedure: No - Discharge Plan Condition: Improved Disposition: HOME Prescriptions: Metoclopramide TAB* [Reglan TAB*] 10 mg PO Q6H PRN #12 tab PRN Reason: Nausea Sucralfate TAB* [Carafate*] 1 gm PO QID #40 tab Patient Education Materials: Gastritis (ED), Abdominal Pain in (ED) Referrals: Laazro Escalante MD [Medical Doctor] - Simón Perez MD [Primary Care Provider] - Additional Instructions: Follow up with OB and GI Medication as directed Return to ER if symptoms change or worsne - Billing Disposition and Condition Condition: IMPROVED Disposition: Home
[2018-11-04 14:08] LABS: ABS Basophils 0.1 10^3/ul (0-0.2); ABS Eosinophils 0.1 10^3/ul (0-0.6); ABS Lymphocytes 2.4 10^3/ul (1.0-4.8); ABS Monocytes 0.7 10^3/ul (0-0.8); ABS Neutrophils 8.7 10^3/ul (1.5-7.7); ABS Nucleated RBC 0 10^3/ul; Eosinophil % 0.9 %; Hematocrit 38 % (33-41); Lymphocyte % 19.8 %; Mean Corpuscular HGB Conc 34 g/dL (31-36); Mean Corpuscular Hemoglobin 30 pg (27-31); Mean Corpuscular Volume 87 fL (80-97); Mean Platelet Volume 9.9 fL (7.4-10.4); Nucleated Red Blood Cells % 0; Platelet Count 216 10^3/uL (150-450); Red Blood Count 4.37 10^6 /uL (3.70-4.87); Red Cell Distribution Width 14 % (10.5-15); White Blood Count 11.9 10^3/uL (3.5-10.8)
[2018-11-04 14:26] LABS: ALT 13 U/L (7-52); AST 13 U/L (13-39); Albumin 3.7 g/dL (3.2-5.2); Albumin/Globulin Ratio 1.5 (1-3); Alkaline Phosphatase 30 U/L (34-104); BUN/Creatinine Ratio 8.9 (8-20); Blood Urea Nitrogen 5 mg/dL (6-24); CO2 Carbon Dioxide 32 mmol/L (22-32); Calcium 8.3 mg/dL (8.6-10.3); Chloride 107 mmol/L (101-111); EGFR African American 151.8 (>60); EGFR Non-African American 125.5 (>60); Globulin 2.4 g/dL (2-4); Glucose 84 mg/dL (70-100); Potassium 3.6 mmol/L (3.5-5.0); Sodium 134 mmol/L (135-145); Total Protein 6.1 g/dL (6.4-8.9)
[2018-11-04] MEDS ORDERED: Al Hydrox/Mg Hydrox/Simet LIQ* 30 ML UDC PO ONE (16:44)
[2018-11-04] MEDS ORDERED: Lidocaine 2% VISCOUS* 15 ML UDC PO ONE (16:44)
[2018-11-04] MEDS ORDERED: Acetaminophen TAB* 325 MG PO ONE (16:44)
[2018-11-04 17:35] LABS: Urine Appearance Clear; Urine Bilirubin Negative (Negative); Urine Blood Negative (Negative); Urine Color Yellow; Urine Glucose Negative (Negative); Urine Ketones 1+ (Negative); Urine Nitrite Negative (Negative); Urine Protein Negative (Negative); Urine Specific Gravity 1.009 (1.010-1.030); Urine Urobilinogen Negative (Negative)
[2018-11-04 17:48] VITALS: BP 130/79
[2018-11-04 17:52] LABS: Urine Benzodiazepine Screen None Detected (None Detect); Urine Opiates Screen None Detected (None Detect)
== END 2018-11-04 17:46 | disposition home or self-care (01) ==
LOC: ED 11:39
DX: O20.0 Threatened abortion (principal); O99.332 Smoking (tobacco) complicating pregnancy, second trimester; F17.210 Nicotine dependence, cigarettes, uncomplicated; Z3A.15 15 weeks gestation of pregnancy; G47.00 Insomnia, unspecified; K21.9 Gastro-esophageal reflux disease without esophagitis; K58.9 Irritable bowel syndrome, unspecified; M19.90 Unspecified osteoarthritis, unspecified site; M79.7 Fibromyalgia; F41.9 Anxiety disorder, unspecified; D35.2 Benign neoplasm of pituitary gland; K29.70 Gastritis, unspecified, without bleeding; Z79.899 Other long term (current) drug therapy; Z88.3 Allergy status to other anti-infective agents; Z88.8 Allergy status to other drugs, medicaments and biological substances; Z88.5 Allergy status to narcotic agent; Z88.0 Allergy status to penicillin
CPT/HCPCS: 36415; 76805; 80053; 80307; 81003; 83690; 84702; 85025; 96361; 96374; 99284; A9270-GY; J2765

== ENCOUNTER 2019-03-23 18:50 | Emergency (ER) | payer OTHER ==
--- NOTE | 2019-03-23 19:40 | ED ---
Throat Pain/Nasal Congestion - HPI Summary HPI Summary: 33 year old F presenting to [facility] with a chief complaint of tooth pain since this morning. The patient rates the pain 7/10 in severity. Symptoms aggravated by nothing. Symptoms alleviated by taking ibuprofen and clindamycin, and applying heat. Patient reports fever 101 F and vomiting. Patient denies chills. Patient states that this morning, she woke up with a white sack on her tooth that turned purple and became swollen. Patient states that the swelling improved after she took ibuprofen but she still had pain. Patient states that she broke a tooth several months ago which has caused several tooth infections. Patient states she needs oral surgery but she states she is currently 35 weeks and cannot have oral surgery until she gives in 4-5 weeks. Patient states she has been taking oral clindamycin on and off for the last 6 months. Patient states that over the last 6 months, she has saved her prescriptions of clindamycin and has been taking her left over pills from her prescriptions. Patient states she has hx tooth infections, once resulting in hospitalization during which she became septic. Medications reviewed. Allergies noted. - History of Current Complaint Chief Complaint: EDDentalPain Time Seen by Provider: 03/23/19 19:30 Hx Obtained From: Patient Onset/Duration: Lasting Weeks, Still Present Severity: Moderate - 7/10 - Allergies/Home Medications Allergies/Adverse Reactions: Allergies Allergy/AdvReac Type Severity Reaction Status Date / Time Bleach (Sodium Hypochlorite) Allergy Severe rash, itchy Verified 03/23/19 18:54 cephalexin [From Keflex] AdvReac Severe Unknown Verified 03/23/19 18:54 Reaction Details clarithromycin [From Biaxin] AdvReac Severe Nausea And Verified 03/23/19 18:54 Vomiting cyclobenzaprine AdvReac Severe See Comment Verified 03/23/19 18:54 [From Flexeril] divalproex sodium AdvReac Severe Abdominal Verified 03/23/19 18:54 [From Depakote] Pain doxycycline AdvReac Severe Rash Verified 03/23/19 18:54 ketorolac [From Toradol] AdvReac Severe Rash And Verified 03/23/19 18:54 Itching meperidine [From Demerol] AdvReac Severe Vomiting Verified 03/23/19 18:54 morphine AdvReac Severe Anaphylatic Verified 03/23/19 18:54 Shock naproxen AdvReac Severe Abdominal Verified 03/23/19 18:54 Pain Penicillins AdvReac Severe Hives/Diff. Verified 03/23/19 18:54 Breathing/I tching tramadol [From Ultram] AdvReac Severe Rash Verified 03/23/19 18:54 trimethoprim [From Bactrim] AdvReac Severe Nausea Verified 03/23/19 18:54 metaxalone [From Skelaxin] AdvReac Intermediate See Comment Verified 03/23/19 18 :54 miracle whip AdvReac Severe n/v, Uncoded 03/23/19 18:54 itchy. hives ragu spaghetti sauce AdvReac Severe n/v, Uncoded 03/23/19 18:54 hives, itchiness PMH/Surg Hx/FS Hx/Imm Hx Endocrine/Hematology History: Denies: Hx Anticoagulant Therapy, Hx Blood Disorders, Hx Diabetes Cardiovascular History: Reports: Hx Syncope, Other Cardiovascular Problems/ Disorders - low blood pressure Denies: Hx Hypertension, Hx Pacemaker/ICD Respiratory History: Reports: Other Respiratory Problems/Disorders - insomnia Denies: Hx Asthma, Hx Chronic Obstructive Pulmonary Disease (COPD) GI History: Reports: Hx Gastroesophageal Reflux Disease - on med, Hx Irritable Bowel, Hx Ulcer - stomach ulcers and an ulcer in esophagus, Other GI Disorders - DIVERTICULITIS-? History: Reports: Other Problems/Disorders - polycystic ovarian syndrome Denies: Hx Dialysis, Hx Renal Disease Musculoskeletal History: Reports: Hx Arthritis, Hx Back Problems, Hx Orthopedic Injury, Hx Osteoporosis - spondylolisthesis, Hx Tendonitis, Other Musculoskeletal History - reports multiple fractures in past, chronic right arm pain and injury/ulnar Denies: Hx Rheumatoid Arthritis Sensory History: Denies: Hx Cataracts, Hx Contacts or Glasses, Hx Hearing Aid Opthamlomology History: Denies: Hx Cataracts, Hx Contacts or Glasses Neurological History: Reports: Hx Migraine - on med prn, Hx Nerve Disease - fibromyalgia, Hx Spinal Cord Injury - fx of L4, L5 S1, Other Neuro Impairments/ Disorders - reports she has a pituitary adenoma Psychiatric History: Reports: Hx Anxiety - NO MEDICATION FOR AT THIS TIME, Hx Depression - NO MEDICATION FOR AT THIS TIME, Hx Community Mental Health Tx - seen prior at [facility] in 2013 Denies: Hx Eating Disorder, Hx Panic Disorder, Hx Inpatient Treatment - no known, Hx of Violent Episodes Against Others, Hx Substance Abuse - Cancer History Cancer Type, Location and Year: None reported Hx Chemotherapy: No - Surgical History Surgery Procedure, Year, and Place: Right wrist surgery/RIGHT ELBOW 05/17/172017 RIGHT SHOULDER SURGERYx2. [place] 1989 [place]. [place] [facility] [place] [facility] [place] [facility] [place] ( one in office [place] [facility] [place] [facility] [place] ENDOSCOPIES/COLONOSCOPIES Hx Anesthesia Reactions: No - Immunization History Date of Tetanus Vaccine: UTD Date of Influenza Vaccine: NO Infectious Disease History: No Infectious Disease History: Denies: Hx Clostridium Difficile, Hx Hepatitis, Hx Human Immunodeficiency Virus (HIV), Hx of Known/Suspected MRSA, Hx Shingles, Hx Tuberculosis, Hx Known/ Suspected VRE, Hx Known/Suspected VRSA, History Other Infectious Disease, Traveled Outside the in Last 30 Days - Family History Known Family History: Positive: Cardiac Disease - mom, Diabetes - Social History Alcohol Use: None Hx Substance Use: Yes - not currently Substance Use Type: Reports: Marijuana Substance Use Comment - Amount & Last Used: hx cannabis use Hx Tobacco Use: Yes Smoking Status (MU): Light Every Day Tobacco Smoker Type: Cigarettes Amount Used/How Often: 8 cigs X 15-17 YEARS Length of Time of Smoking/Using Tobacco: since 17yo Have You Smoked in the Last Year: Yes Review of Systems Positive: Fever. Negative: Chills Positive: Dental Pain All Other Systems Reviewed And Are Negative: Yes Physical Exam - Summary Physical Exam Summary: Constitutional: Well-developed, Well-nourished, Alert. (-) Distressed Skin: Warm, Dry HENT: Normocephalic; Atraumatic. Right buccal surface with swelling, no induration or fluctuance, multiple missing teeth with the 2 molars necrotic and tender, no sublingual tenderness or woodiness, no submandibular swelling Eyes: Conjunctiva normal Neck: Musculoskeletal ROM normal neck. (-) JVD, (-) Stridor, (-) Tracheal deviation Cardio: Rhythm regular, rate normal, Heart sounds normal; Intact distal pulses; The pedal pulses are 2+ and symmetric. Radial pulses are 2+ and symmetric. (-) Murmur Pulmonary/Chest wall: Effort normal. (-) Respiratory distress, (-) Wheezes, (-) Rales Abd: Soft, (-) tenderness, (-) Distension, (-) Guarding, (-) Rebound Musculoskeletal: (-) Edema Lymph: (-) Cervical adenopathy Neuro: Alert, Oriented x3 Psych: Mood and affect Normal Triage Information Reviewed: Yes Vital Signs On Initial Exam: Initial Vitals Temp Pulse Resp BP Pulse Ox 98.1 F 80 16 130/81 100 03/23/19 18:53 03/23/19 18:53 03/23/19 18:53 03/23/19 18:53 03/23/19 18:53 Vital Signs Reviewed: Yes Diagnostics - Vital Signs Vital Signs Temp Pulse Resp BP Pulse Ox 03/23/19 18:53 98.1 F 80 16 130/81 100 - Laboratory Lab Statement: Any lab studies that have been ordered have been reviewed, and results considered in the medical decision making process. EENT Course/Dx - Course Course Of Treatment: Patient is here with symptoms of a dental infection. Patient has no drainable abscess. Patient is and is planning on getting her dental work performed after she delivers her baby. Patient was continued on clindamycin prescription here. Patient has no evidence of Alex angina or any deep space neck infection. Patient was encouraged [facility] as soon as possible to set up an appointment in the next 1-3 days. - Diagnoses Provider Diagnoses: Dental infection Discharge ED - Sign-Out/Discharge Documenting (check all that apply): Patient Departure - Discharge Patient Received Moderate/Deep Sedation with Procedure: No - Discharge Plan Condition: Stable Disposition: HOME Prescriptions: Clindamycin Cap(NF) [Clindamycin Cap 300 mg Cap(NF)] 300 mg PO Q6H 7 Days #28 cap Patient Education Materials: Toothache (ED) Referrals: Simón Perez MD [Medical Doctor] - 1 Day Additional Instructions: Call your OBGYN in the next 1-3 days to make a follow up appointment. PLEASE RETURN TO EMERGENCY DEPARTMENT FOR ANY NEW OR WORSENING SYMPTOMS. - Billing Disposition and Condition Condition: STABLE Disposition: Home - Attestation Statements Document Initiated by Scribe: Yes Documenting Scribe: Betty Jurado Provider For Whom Scribe is Documenting (Include Credential): Rony Yu MD Scribe Attestation: Betty Trevizo, scribed for Rony Yu MD on 03/23/19 at 2100. Scribe Documentation Reviewed: Yes Provider Attestation: The documentation as recorded by the scribe, Betty Jurado accurately reflects the service I personally performed and the decisions made by me, Rony Yu MD Status of Scribe Document: Viewed
[2019-03-23 20:59] VITALS: BP 137/71
== END 2019-03-23 20:15 | disposition home or self-care (01) ==
LOC: ED 18:50
DX: K04.7 Periapical abscess without sinus (principal); O99.333 Smoking (tobacco) complicating pregnancy, third trimester; F17.210 Nicotine dependence, cigarettes, uncomplicated; Z3A.35 35 weeks gestation of pregnancy; K21.9 Gastro-esophageal reflux disease without esophagitis; F41.9 Anxiety disorder, unspecified; F32.9 Major depressive disorder, single episode, unspecified; Z90.49 Acquired absence of other specified parts of digestive tract; Z88.1 Allergy status to other antibiotic agents; Z88.5 Allergy status to narcotic agent; Z88.0 Allergy status to penicillin; Z88.8 Allergy status to other drugs, medicaments and biological substances
CPT/HCPCS: 99282

== ENCOUNTER 2019-04-25 07:59 | Inpatient (IN) | payer OTHER ==
[2019-04-25] MEDS ORDERED: Buffered Lidocaine 1% SYRIN* 1 ML/SYRINGE INTRADERM ONE (09:09)
[2019-04-25] MEDS ORDERED: Lactated Ringers 1000 ML Bag* 1,000 ML IV ONE ×2 (09:09→12:33)
[2019-04-25 09:10] LABS: ABS Basophils 0.1 10^3/ul (0-0.2); ABS Eosinophils 0.2 10^3/ul (0-0.6); ABS Lymphocytes 2.2 10^3/ul (1.0-4.8); ABS Neutrophils 13.2 10^3/ul (1.5-7.7); Eosinophil % 1.3 %; Hematocrit 39 % (35-47); Hemoglobin 13.2 g/dL (12.0-16.0); Lymphocyte % 12.9 %; Mean Corpuscular HGB Conc 34 g/dL (31-36); Mean Corpuscular Hemoglobin 30 pg (27-31); Mean Corpuscular Volume 87 fL (80-97); Platelet Count 180 10^3/uL (150-450); Red Blood Count 4.46 10^6 /uL (3.70-4.87); Red Cell Distribution Width 15 % (10-15); White Blood Count 16.7 10^3/uL (3.5-10.8)
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
[2019-04-25 09:27] LABS: Urine Benzodiazepine Screen None Detected (None Detect); Urine Opiates Screen None Detected (None Detect)
[2019-04-25] MEDS ORDERED: Nalbuphine* 10 MG/ML 1 ML VIAL IV ONE (09:30)
[2019-04-25] MEDS ORDERED: Promethazine INJ(RESTRICTED)* 25 MG/ML 1 ML VIAL IV ONE (09:35)
[2019-04-25] MEDS ORDERED: Lactated Ringers 1000 ML Bag* 1,000 ML IV SCH ×3 (10:00→16:00)
[2019-04-25] MEDS ORDERED: Oxytocin in LR* 20 UNITS/1,000 ML BAG IVPB SCH (10:00)
[2019-04-25] MEDS ORDERED: Bupivacaine 0.25% SDV PF* 10 ML VIAL INJ ONE (11:59)
[2019-04-25] MEDS ORDERED: OBEPIDURAL* 250 ML EPIDURAL ONE (12:02)
[2019-04-25] MEDS ORDERED: EPHEDrine (Pressors)* 50 MG/ML VIAL IV PUSH PRN (12:33)
[2019-04-25] MEDS ORDERED: Sodium Citrate/Citric Acid* 15 ML UDC PO PRN (12:33)
[2019-04-25] MEDS ORDERED: Famotidine TAB* 20 MG PO PRN (12:33)
[2019-04-25] MEDS ORDERED: Phenylephrine 40 MCG/ML SYRINGE IV PUSH PRN (12:33)
[2019-04-25] MEDS ORDERED: OBEPIDURAL* 250 ML EPIDURAL SCH (13:00)
[2019-04-25] MEDS ORDERED: Glycerin ADULT SUPP PR PRN (15:25)
[2019-04-25] MEDS ORDERED: Witch Hazel PAD* JAR TOPICAL PRN (15:25)
[2019-04-25] MEDS ORDERED: Dibucaine 1% 28.35 GM TUBE PR PRN (15:25)
--- NOTE | 2019-04-25 15:30 | PROCNOTE ---
[facility] OB: Delivery Note - Delivery A Date of : 04/25/19 Time of : 15:10 Sex: Male Weight at : 7 lb 5 oz Score 1 Minute: 9 Score 5 Minutes: 10 Gestational Age in Weeks and Days at Delivery: 39 Weeks and 3 Days Delivery Method: Spontaneous Vaginal Did Patient attempt ?: N/A, No Previous Amniotic Fluid: Meconium Estimated Blood Loss: 200 Anesthesia/Analgesia: CEI for Labor Delivered By: Simón Perez - Nursery Level of Nursery: Regular/Bedside - Perineum Perineal Injury: Midline Episiotomy Perineal Repair: By Delivering Practioner - Events Delivery Events of Note: None Apply
[2019-04-25] MEDS ORDERED: Lidocaine 1% INJ* 10 MG/ML 30 ML SDV ONE (15:40)
[2019-04-25] MEDS ORDERED: Ammonia Inhalant* 1 EA AMP ONE (16:45)
[2019-04-25] MEDS ORDERED: Simethicone TAB* 80 MG TAB.CHEW PO SCH (17:30)
[2019-04-25] MEDS: Ibuprofen TAB* 600 MG PO PRN ×2 (18:29→23:49)
[2019-04-25] MEDS ORDERED: diPHENhydraMINE PO* 50 MG PO PRN (21:28)
[2019-04-25] MEDS: Acetaminophen TAB* 325 MG PO PRN (21:54)
[2019-04-26] MEDS: Acetaminophen TAB* 325 MG PO PRN ×5 (02:13→21:35)
[2019-04-26] MEDS: Ibuprofen TAB* 600 MG PO PRN ×2 (05:47→11:46)
[2019-04-26 06:14] LABS: ABS Basophils 0.1 10^3/ul (0-0.2); ABS Eosinophils 0.3 10^3/ul (0-0.6); ABS Lymphocytes 2.6 10^3/ul (1.0-4.8); ABS Neutrophils 11.5 10^3/ul (1.5-7.7); Eosinophil % 1.7 %; Hematocrit 35 % (35-47); Hemoglobin 11.9 g/dL (12.0-16.0); Lymphocyte % 16.6 %; Mean Corpuscular HGB Conc 34 g/dL (31-36); Mean Corpuscular Hemoglobin 30 pg (27-31); Mean Corpuscular Volume 88 fL (80-97); Mean Platelet Volume 11.7 fL (7.4-10.4); Platelet Count 172 10^3/uL (150-450); Red Blood Count 3.99 10^6 /uL (3.70-4.87); Red Cell Distribution Width 15 % (10-15); White Blood Count 15.4 10^3/uL (3.5-10.8)
[2019-04-26] MEDS ORDERED: Influenza VAC *QUAD* 2019-20* 0.5 ML SYRINGE IM ONE (09:00)
[2019-04-26] MEDS: Docusate CAP* 100 MG PO SCH ×4 (09:13→21:36)
[2019-04-26] MEDS: Ferrous Gluconate TAB* 324 MG TAB PO SCH ×2 (09:46→21:18)
[2019-04-26] MEDS ORDERED: Nicotine Lozenge* mini 2 MG LOZNG.MINI MT PRN (11:41)
--- NOTE | 2019-04-26 11:52 | PN ---
Progress Note - Progress Note Date of Service: 04/26/19 Note: S: Pt doing well. S/P . Ambulating. Pain well controlled. Voiding without difficulty. Vaginal bleeding minimal. Breast and bottle feeding. Good spirits. Denies fever, chills, n/v/d, cp, sob. Denies WILKINSON or changes in vision. O: AVSS, afebrile, hemodynamically stable Gen: nad, aaox3 CV: RRR Pulm: non-labored respirations Abd: soft, nd, nttp, fundus firm below the umbilicus : perineum healing well, no s/sx of infection/breakdown Ext: warm, nttp, neg homans, trace edema A/P: 33 y/o s/p at term. - hct 35, no anemia, asymptomatic - tolerating regular diet - Continue Colace - Motrin/Tylenol for pain - Hx of PPD - mood is good - Rh neg, baby Rh neg also - OK for Norma Sanchez - Continue routine PP care
[2019-04-27] MEDS: Ibuprofen TAB* 600 MG PO PRN (00:10)
[2019-04-27] MEDS: Docusate CAP* 100 MG PO SCH (07:39)
[2019-04-27] MEDS: Acetaminophen TAB* 325 MG PO PRN (07:39)
[2019-04-27] MEDS ORDERED: SUMAtriptan TAB* 100 MG PO ONE (08:55)
[2019-04-27 10:06] VITALS: BP 133/70
== END 2019-04-27 12:14 | disposition home or self-care (01) | DRG 560 ==
LOC: MCHOBOUT 07:59 → MCHOB 08:40
PROVIDERS: ADMIT Obstetrics & Gynecology; ATTEND Obstetrics & Gynecology
PROC: 10E0XZZ Delivery of Products of Conception, External Approach (ICD-10-PCS; principal; 2019-04-25)
PROC: 4A1HXCZ Monitoring of Products of Conception, Cardiac Rate, External Approach (ICD-10-PCS; 2019-04-25)
PROC: 10907ZC Drainage of Amniotic Fluid, Therapeutic from Products of Conception, Via Natural or Artificial Opening (ICD-10-PCS; 2019-04-25)
PROC: 0W8NXZZ Division of Female Perineum, External Approach (ICD-10-PCS; 2019-04-25)
DX: O99.334 Smoking (tobacco) complicating childbirth (principal); Z37.0 Single live birth; O77.0 Labor and delivery complicated by meconium in amniotic fluid; F17.210 Nicotine dependence, cigarettes, uncomplicated; Z88.1 Allergy status to other antibiotic agents; Z88.6 Allergy status to analgesic agent; Z88.5 Allergy status to narcotic agent; Z88.0 Allergy status to penicillin; Z88.2 Allergy status to sulfonamides; Z91.018 Allergy to other foods; Z3A.39 39 weeks gestation of pregnancy; Z67.11 Type A blood, Rh negative; Z90.49 Acquired absence of other specified parts of digestive tract
CPT/HCPCS: 36415; 80307; 85025; 86850; 86900; 86901; A9270-GY; J2300; J2550; J3490

== ENCOUNTER 2019-05-02 09:25 | Emergency (ER) | payer OTHER ==
[2019-05-02 10:07] LABS: ABS Basophils 0.1 10^3/ul (0-0.2); ABS Eosinophils 0.2 10^3/ul (0-0.6); ABS Lymphocytes 1.5 10^3/ul (1.0-4.8); ABS Monocytes 0.4 10^3/ul (0-0.8); ABS Neutrophils 4.4 10^3/ul (1.5-7.7); Eosinophil % 3.6 %; Hematocrit 34 % (35-47); Hemoglobin 11.6 g/dL (12.0-16.0); Lymphocyte % 22.2 %; Mean Corpuscular HGB Conc 34 g/dL (31-36); Mean Corpuscular Hemoglobin 30 pg (27-31); Mean Corpuscular Volume 88 fL (80-97); Mean Platelet Volume 8.7 fL (7.4-10.4); Platelet Count 395 10^3/uL (150-450); Red Blood Count 3.84 10^6 /uL (3.70-4.87); Red Cell Distribution Width 16 % (10-15); White Blood Count 6.6 10^3/uL (3.5-10.8)
[2019-05-02 10:14] LABS: INR 0.87 (0.82-1.09)
[2019-05-02 10:29] LABS: Albumin 3.5 g/dL (3.2-5.2); Albumin/Globulin Ratio 1.2 (1-3); BUN/Creatinine Ratio 22.2 (8-20); C Reactive Protein 3.43 mg/L (<8.01); Calcium 8.9 mg/dL (8.6-10.3); EGFR African American 132.5 (>60); EGFR Non-African American 109.5 (>60); Magnesium 1.8 mg/dL (1.9-2.7); Potassium 4.3 mmol/L (3.5-5.0); Total Bilirubin 0.3 mg/dL (0.2-1.0); Total Protein 6.5 g/dL (6.4-8.9)
[2019-05-02] MEDS ORDERED: diazePAM INJ* 5 MG/ML 2ML SYRINGE IV ONE (10:36)
[2019-05-02] MEDS ORDERED: Ketorolac INJ* 30 MG/ML 1 ML VIAL IV ONE (10:36)
[2019-05-02 10:55] LABS: Urine Appearance Clear; Urine Bacteria Absent (Absent); Urine Bilirubin Negative (Negative); Urine Blood 3+ (Negative); Urine Color Yellow; Urine Glucose Negative (Negative); Urine Ketones Negative (Negative); Urine Nitrite Negative (Negative); Urine Protein Negative (Negative); Urine Red Blood Cell 1+(3-5/hpf) (Absent); Urine Specific Gravity 1.006 (1.010-1.030); Urine Squamous Epithelial Cell Present (Absent); Urine Urobilinogen Negative (Negative); Urine White Blood Cell Absent (Absent)
--- NOTE | 2019-05-02 12:52 | PN ---
ED Psychiatric Progress Note Subjective: This is a 33 year-old F who is pending admission to [facility] / transfer to another psychiatric facility / discharge to home / or being observed secondary to . Pt offers no complaints at this time or is c/o . Objective: Vitals: Most recent vital signs documented below. General NAD, Alert and oriented x3. Heart: rrr at bpm Lungs: CTA or with rales, rhonchi, wheezing Laboratory: Current laboratory results documented below. Assessment: Plan: Pending psychiatric or medical consultation to observe / transfer / admit / discharge will follow up daily . Vital Signs Temp Pulse Resp BP Pulse Ox 98.1 F 81 20 133/78 99 05/02/19 09:30 05/02/19 09:49 05/02/19 09:30 05/02/19 09:30 05/02/19 09:49 Lab Results - Entire Visit 05/02/19 05/02/19 05/02/19 10:28 10:00 10:00 WBC RBC Hgb Hct MCV MCH MCHC RDW Plt Count MPV Neut % (Auto) Lymph % (Auto) [place] % (Auto) Eos % (Auto) Baso % (Auto) Absolute Neuts (auto) Absolute Lymphs (auto) Absolute Monos (auto) Absolute Eos (auto) Absolute Basos (auto) Absolute Nucleated RBC Nucleated RBC % INR (Anticoag Therapy) Sodium 137 Potassium 4.3 Chloride 109 Carbon Dioxide 21 L Anion Gap 7 BUN 14 Creatinine 0.63 Est GFR ( Amer) 132.5 Est GFR (Non-Af Amer) 109.5 BUN/Creatinine Ratio 22.2 H Glucose 80 Lactic Acid 0.9 Calcium 8.9 Magnesium 1.8 L Total Bilirubin 0.30 AST 11 L ALT 12 Alkaline Phosphatase 91 C-Reactive Protein 3.43 Total Protein 6.5 Albumin 3.5 Globulin 3.0 Albumin/Globulin Ratio 1.2 Lipase 29 Urine Color Yellow Urine Appearance Clear Urine pH 7.0 Ur Specific [place] 1.006 L Urine Protein Negative Urine Ketones Negative Urine Blood 3+ A Urine Nitrate Negative Urine Bilirubin Negative Urine Urobilinogen Negative Ur Leukocyte Esterase Negative Urine WBC (Auto) Absent Urine RBC (Auto) 1+(3-5/hpf) A Ur Squamous Epith Cells Present A Urine Bacteria Absent Urine Glucose Negative 05/02/19 05/02/19 10:00 09:55 WBC 6.6 RBC 3.84 Hgb 11.6 L Hct 34 L MCV 88 MCH 30 MCHC 34 RDW 16 H Plt Count 395 MPV 8.7 Neut % (Auto) 67.0 Lymph % (Auto) 22.2 [place] % (Auto) 5.9 Eos % (Auto) 3.6 Baso % (Auto) 1.3 Absolute Neuts (auto) 4.4 Absolute Lymphs (auto) 1.5 Absolute Monos (auto) 0.4 Absolute Eos (auto) 0.2 Absolute Basos (auto) 0.1 Absolute Nucleated RBC 0.0 Nucleated RBC % 0.0 INR (Anticoag Therapy) 0.87 Sodium Potassium Chloride Carbon Dioxide Anion Gap BUN Creatinine Est GFR ( Amer) Est GFR (Non-Af Amer) BUN/Creatinine Ratio Glucose Lactic Acid Calcium Magnesium Total Bilirubin AST ALT Alkaline Phosphatase C-Reactive Protein Total Protein Albumin Globulin Albumin/Globulin Ratio Lipase Urine Color Urine Appearance Urine pH Ur Specific [place] Urine Protein Urine Ketones Urine Blood Urine Nitrate Urine Bilirubin Urine Urobilinogen Ur Leukocyte Esterase Urine WBC (Auto) Urine RBC (Auto) Ur Squamous Epith Cells Urine Bacteria Urine Glucose
[2019-05-02 12:56] VITALS: BP 118/85
--- NOTE | 2019-05-02 13:02 | ED ---
Abdominal Pain/Female - HPI Summary HPI Summary: This patient is a 33-year-old female presenting to the ED 1 week with vaginal delivery with no complications with low suprapubic pain and L sided sciatica which she describes as severe and 10/10. Denies any fevers , sweats or chills. Pain is stabbing and aching, specifically to the suprapubic , lower abdomen inferior to the umbilicus without radiation of pain. She endorses pain to the left sciatic notch radiating down the left lower extremity , causing numbness and tingling. No current modifying factors. She states this is been present since she was discharged. She does endorse having an epidural just prior to delivery. She states since that time she has been experiencing for left sided lower extremity numbness and tingling. Patient is very upset on arrival, tearful. She did not call [facility], stating she was unable to stand the pain and did not want to wait for an appt. Continues to bleed, no more than her first day post discharge. Endorses clots. Continues to use 3-4 pads per day. No N/V/C/D currently, but states she has had vomiting x 1 yesterday. Endorses hx of constipation which has been relieved with her suppositories. Denies upper abd pain. Denies CP, SOB, pain to the calfs, erythema around the lower ext or any leg heaviness or swelling. Accurate history and timeline limited by pt distress and tearfulness. Continues to take ibuprofen and tylenol without relief, so states she stopped taking them since they "did not work." Delivery was unremarkable. [facility] [employer] is Dr. Perez. Pt has follow up in 5 weeks from now. - History of Current Complaint Chief Complaint: EDAbdPain Stated Complaint: LOWER ABD/LT LEG PAIN PER PT Time Seen by Provider: 05/02/19 09:49 Hx Obtained From: Patient Hx Last Menstrual Period: 05/08/18 ?: No Onset/Duration: Sudden Onset Timing: Constant Severity Initially: Severe Severity Currently: Severe Pain Intensity: 9 Pain Scale Used: 0-10 Numeric Location: Suprapubic, Umbilical Radiates: No Character: Sharp, Cramping Aggravating Factor(s): Nothing Alleviating Factor(s): Nothing - Risk Factors Ectopic Risk Factor: Negative Ovarian Torsion Risk Factor: Negative Allergies/Adverse Reactions: Allergies Allergy/AdvReac Type Severity Reaction Status Date / Time propoxyphene Allergy Intermediate skin rash Verified 05/02/19 09:34 [From Darvocet-N] cephalexin [From Keflex] AdvReac Severe Unknown Verified 05/02/19 09:34 Reaction Details clarithromycin [From Biaxin] AdvReac Severe Nausea And Verified 05/02/19 09:34 Vomiting cyclobenzaprine AdvReac Severe See Comment Verified 05/02/19 09:34 [From Flexeril] divalproex sodium AdvReac Severe Abdominal Verified 05/02/19 09:34 [From Depakote] Pain doxycycline AdvReac Severe Rash Verified 05/02/19 09:34 morphine AdvReac Severe Anaphylatic Verified 05/02/19 09:34 Shock naproxen AdvReac Severe Abdominal Verified 05/02/19 09:34 Pain Penicillins AdvReac Severe Hives/Diff. Verified 05/02/19 09:34 Breathing/I tching trimethoprim [From Bactrim] AdvReac Severe Nausea Verified 05/02/19 09:34 metaxalone [From Skelaxin] AdvReac Intermediate See Comment Verified 05/02/19 09 :34 miracle whip AdvReac Severe n/v, Uncoded 05/02/19 09:34 itchy. hives ragu spaghetti sauce AdvReac Severe n/v, Uncoded 05/02/19 09:34 hives, itchiness PMH/Surg Hx/FS Hx/Imm Hx Previously Healthy: Yes Endocrine/Hematology History: Denies: Hx Anticoagulant Therapy, Hx Blood Disorders, Hx Diabetes Cardiovascular History: Reports: Hx Syncope, Other Cardiovascular Problems/ Disorders - low blood pressure Denies: Hx Hypertension, Hx Pacemaker/ICD Respiratory History: Reports: Other Respiratory Problems/Disorders - insomnia Denies: Hx Asthma, Hx Chronic Obstructive Pulmonary Disease (COPD) GI History: Reports: Hx Gastroesophageal Reflux Disease - on med, Hx Irritable Bowel, Hx Ulcer - stomach ulcers and an ulcer in esophagus, Other GI Disorders - DIVERTICULITIS-? History: Reports: Other Problems/Disorders - polycystic ovarian syndrome Denies: Hx Dialysis, Hx Renal Disease Musculoskeletal History: Reports: Hx Arthritis, Hx Back Problems, Hx Orthopedic Injury, Hx Osteoporosis - spondylolisthesis, Hx Tendonitis, Other Musculoskeletal History - reports multiple fractures in past, chronic right arm pain and injury/ulnar Denies: Hx Rheumatoid Arthritis Sensory History: Denies: Hx Cataracts, Hx Contacts or Glasses, Hx Hearing Aid Opthamlomology History: Denies: Hx Cataracts, Hx Contacts or Glasses Neurological History: Reports: Hx Migraine - on med prn, Hx Nerve Disease - fibromyalgia, Hx Spinal Cord Injury - fx of L4, L5 S1, Other Neuro Impairments/ Disorders - reports she has a pituitary adenoma Psychiatric History: Reports: Hx Anxiety - NO MEDICATION FOR AT THIS TIME, Hx Depression - NO MEDICATION FOR AT THIS TIME, Hx Post Traumatic Stress Disorder, Hx Community Mental Health Tx Denies: Hx Attention Deficit Hyperactivity Disorder, Hx Eating Disorder, Hx Panic Disorder, Hx Inpatient Treatment, Hx Schizophrenia, Hx Bipolar Disorder, Hx Suicide Attempt, Hx of Violent Episodes Against Others, Hx Substance Abuse, Other Psychiatric Issues/Disorders - Cancer History Cancer Type, Location and Year: None reported Hx Chemotherapy: No - Surgical History Surgery Procedure, Year, and Place: Right wrist surgery/RIGHT ELBOW 05/17/172017 RIGHT SHOULDER SURGERYx2. tonsillectomy 1989 [place]. right ovarian cyst removed 2006 [facility] [place]. cholecystectomy 2006 [facility] [place]. D&C 2006 - [facility] [place]. teeth extraction ( one in office and one at [facility] [place]). ear biopsy - 2014 [facility] [place]. ENDOSCOPIES/COLONOSCOPIES Hx Anesthesia Reactions: No - Immunization History Date of Tetanus Vaccine: UTD Date of Influenza Vaccine: NO Infectious Disease History: No Infectious Disease History: Denies: Hx Clostridium Difficile, Hx Hepatitis, Hx Human Immunodeficiency Virus (HIV), Hx of Known/Suspected MRSA, Hx Shingles, Hx Tuberculosis, Hx Known/ Suspected VRE, Hx Known/Suspected VRSA, History Other Infectious Disease, Traveled Outside the in Last 30 Days - Family History Known Family History: Positive: Cardiac Disease - mom, Diabetes - Social History Occupation: Unemployed Lives: With Family Alcohol Use: None Hx Substance Use: Yes - not currently Substance Use Type: Reports: None Substance Use Comment - Amount & Last Used: hx cannabis use Hx Tobacco Use: Yes Smoking Status (MU): Light Every Day Tobacco Smoker Type: Cigarettes Amount Used/How Often: 1/2 PPD Length of Time of Smoking/Using Tobacco: since 17yo Have You Smoked in the Last Year: Yes Review of Systems Negative: Fever, Chills, Fatigue, Skin Diaphoresis Negative: Palpitations, Chest Pain Negative: Shortness Of Breath, Cough Positive: Abdominal Pain - severe umbilicus pain. Negative: Vomiting, Diarrhea , Nausea Genitourinary: Negative Positive: no symptoms reported, see HPI Positive: Other - left sided sciatic pain. Negative: Arthralgia, Myalgia Skin: Negative Neurological: Negative All Other Systems Reviewed And Are Negative: Yes Physical Exam Triage Information Reviewed: Yes Vital Signs On Initial Exam: Initial Vitals Temp Pulse Resp BP Pulse Ox 98.1 F 80 20 133/78 97 05/02/19 09:30 05/02/19 09:30 05/02/19 09:30 05/02/19 09:30 05/02/19 09:30 Vital Signs Reviewed: Yes Appearance: Positive: Well-Appearing, Well-Nourished Skin: Positive: Warm, Skin Color Reflects Adequate Perfusion Head/Face: Positive: Normal Head/Face Inspection Eyes: Positive: EOMI, PARVEZ, Conjunctiva Clear Neck: Positive: Supple, No Lymphadenopathy Respiratory/Lung Sounds: Positive: Clear to Auscultation, Breath Sounds Present Cardiovascular: Positive: RRR, Pulses are Symmetrical in both Upper and Lower Extremities Abdomen Description: Positive: Other: - tenderness on palpation, umbilicus pain non radiating Musculoskeletal: Positive: Normal, Strength/ROM Intact, Pain @ - left sided sciatica pain Neurological: Positive: Speech Normal Psychiatric: Positive: Affect/Mood Appropriate AVPU Assessment: Alert Procedures - Sedation Patient Received Moderate/Deep Sedation with Procedure: No Diagnostics - Vital Signs Vital Signs Temp Pulse Resp BP Pulse Ox 05/02/19 12:28 65 118/85 99 05/02/19 12:00 67 98 05/02/19 11:58 70 130/87 98 05/02/19 11:28 67 124/75 97 05/02/19 11:00 74 97 05/02/19 10:58 75 125/81 97 05/02/19 10:29 63 125/76 100 05/02/19 10:00 66 98 05/02/19 09:49 81 99 05/02/19 09:30 98.1 F 80 20 133/78 97 - Laboratory Lab Results: Lab Results 05/02/19 05/02/19 05/02/19 Range/Units 09:55 10:00 10:00 WBC 6.6 (3.5-10.8) 10^3/uL RBC 3.84 (3.70-4.87) 10^6 /uL Hgb 11.6 L (12.0-16.0) g/dL Hct 34 L (35-47) % MCV 88 (80-97) fL MCH 30 (27-31) pg MCHC 34 (31-36) g/dL RDW 16 H (10-15) % Plt Count 395 (150-450) 10^3/uL MPV 8.7 (7.4-10.4) fL Neut % (Auto) 67.0 % Lymph % (Auto) 22.2 % [place] % (Auto) 5.9 % Eos % (Auto) 3.6 % Baso % (Auto) 1.3 % Absolute Neuts (auto) 4.4 (1.5-7.7) 10^3/ul Absolute Lymphs (auto) 1.5 (1.0-4.8) 10^3/ul Absolute Monos (auto) 0.4 (0-0.8) 10^3/ul Absolute Eos (auto) 0.2 (0-0.6) 10^3/ul Absolute Basos (auto) 0.1 (0-0.2) 10^3/ul Absolute Nucleated RBC 0.0 10^3/ul Nucleated RBC % 0.0 INR (Anticoag Therapy) 0.87 (0.82-1.09) Sodium 137 (135-145) mmol/L Potassium 4.3 (3.5-5.0) mmol/L Chloride 109 (101-111) mmol/L Carbon Dioxide 21 L (22-32) mmol/L Anion Gap 7 (2-11) mmol/L BUN 14 (6-24) mg/dL Creatinine 0.63 (0.51-0.95) mg/dL Est GFR ( Amer) 132.5 (>60) Est GFR (Non-Af Amer) 109.5 (>60) BUN/Creatinine Ratio 22.2 H (8-20) Glucose 80 (70-100) mg/dL Lactic Acid (0.5-2.0) mmol/L Calcium 8.9 (8.6-10.3) mg/dL Magnesium 1.8 L (1.9-2.7) mg/dL Total Bilirubin 0.30 (0.2-1.0) mg/dL AST 11 L (13-39) U/L ALT 12 (7-52) U/L Alkaline Phosphatase 91 (34-104) U/L C-Reactive Protein 3.43 (<8.01) mg/L Total Protein 6.5 (6.4-8.9) g/dL Albumin 3.5 (3.2-5.2) g/dL Globulin 3.0 (2-4) g/dL Albumin/Globulin Ratio 1.2 (1-3) Lipase 29 (11.0-82.0) U/L Urine Color Urine Appearance Urine pH (5-9) Ur Specific [place] (1.010-1.030) Urine Protein (Negative) Urine Ketones (Negative) Urine Blood (Negative) Urine Nitrate (Negative) Urine Bilirubin (Negative) Urine Urobilinogen (Negative) Ur Leukocyte Esterase (Negative) Urine WBC (Auto) (Absent) Urine RBC (Auto) (Absent) Ur Squamous Epith Cells (Absent) Urine Bacteria (Absent) Urine Glucose (Negative) 05/02/19 05/02/19 Range/Units 10:00 10:28 WBC (3.5-10.8) 10^3/uL RBC (3.70-4.87) 10^6 /uL Hgb (12.0-16.0) g/dL Hct (35-47) % MCV (80-97) fL MCH (27-31) pg MCHC (31-36) g/dL RDW (10-15) % Plt Count (150-450) 10^3/uL MPV (7.4-10.4) fL Neut % (Auto) % Lymph % (Auto) % [place] % (Auto) % Eos % (Auto) % Baso % (Auto) % Absolute Neuts (auto) (1.5-7.7) 10^3/ul Absolute Lymphs (auto) (1.0-4.8) 10^3/ul Absolute Monos (auto) (0-0.8) 10^3/ul Absolute Eos (auto) (0-0.6) 10^3/ul Absolute Basos (auto) (0-0.2) 10^3/ul Absolute Nucleated RBC 10^3/ul Nucleated RBC % INR (Anticoag Therapy) (0.82-1.09) Sodium (135-145) mmol/L Potassium (3.5-5.0) mmol/L Chloride (101-111) mmol/L Carbon Dioxide (22-32) mmol/L Anion Gap (2-11) mmol/L BUN (6-24) mg/dL Creatinine (0.51-0.95) mg/dL Est GFR ( Amer) (>60) Est GFR (Non-Af Amer) (>60) BUN/Creatinine Ratio (8-20) Glucose (70-100) mg/dL Lactic Acid 0.9 (0.5-2.0) mmol/L Calcium (8.6-10.3) mg/dL Magnesium (1.9-2.7) mg/dL Total Bilirubin (0.2-1.0) mg/dL AST (13-39) U/L ALT (7-52) U/L Alkaline Phosphatase (34-104) U/L C-Reactive Protein (<8.01) mg/L Total Protein (6.4-8.9) g/dL Albumin (3.2-5.2) g/dL Globulin (2-4) g/dL Albumin/Globulin Ratio (1-3) Lipase (11.0-82.0) U/L Urine Color Yellow Urine Appearance Clear Urine pH 7.0 (5-9) Ur Specific [place] 1.006 L (1.010-1.030) Urine Protein Negative (Negative) Urine Ketones Negative (Negative) Urine Blood 3+ A (Negative) Urine Nitrate Negative (Negative) Urine Bilirubin Negative (Negative) Urine Urobilinogen Negative (Negative) Ur Leukocyte Esterase Negative (Negative) Urine WBC (Auto) Absent (Absent) Urine RBC (Auto) 1+(3-5/hpf) A (Absent) Ur Squamous Epith Cells Present A (Absent) Urine Bacteria Absent (Absent) Urine Glucose Negative (Negative) Result Diagrams: 05/02/19 10:00 05/02/19 10:00 Lab Statement: Any lab studies that have been ordered have been reviewed, and results considered in the medical decision making process. Abdominal Pain Fem Course/Dx - Course Course Of Treatment: This patient is evaluated for suprapubic/inferior to the umbilicus abd pain present since giving . She endorses pain 10/10, constant, aching and stabbing. See HPI. Limited timeline given as pt does not recall and in distress. Unsure when last PO intake, BM and vomiting episode. Sodium 137, potassium 4.3. H&H at 11 and 34 respectively. Magnesium slightly low at 1.8. Urine shows no signs of infection with 3+ urine blood. Physical examination, patient has pain to the suprapubic region just inferior to the umbilicus. There is no distention, guarding, rigidity. No pain to the RLQ or LLQ. Lungs CTA, RRR. Patient appears to be in acute distress, tearful. Pt given toradol and valium and pt was seen asleep on re-examination in no acute distress. Discussed case with Dr. Perez who recommends close follow up with ObGYN and nsaids at this time. As pt afebrile and stable, pt will be dcd. - Diagnoses Differential Diagnosis: Positive: Other - UTI, pain distress, sciatica Provider Diagnoses: pain - Provider Notifications Discussed Care Of Patient With: Simón Perez Instructed by Provider To: Have Pt Call For Appt. - pt will call today to make an appt Discharge ED - Sign-Out/Discharge Documenting (check all that apply): Patient Departure - Discharge Plan Condition: Stable Disposition: HOME Prescriptions: Acetaminop/Codeine 30 MG TAB* [Tylenol/Codeine 30 MG TAB*] 1 tab PO Q8H PRN #12 tab MDD 3 PRN Reason: Pain - Mild Diazepam TAB(*) [Valium TAB(*)] 5 mg PO TID PRN #12 tab MDD 3 PRN Reason: Pain - Mild Ketorolac TAB * [Toradol TAB *] 10 mg PO Q6H #16 tab Patient Education Materials: Sciatica (ED), Bleeding (ED) Referrals: Simón Perez MD [Medical Doctor] - No Primary Care Phys,NOPCP [Primary Care Provider] - Additional Instructions: Please follow up with Dr. Perez's office Call today to make an appt Toradol four times daily x 4 days Valium three times daily Do not drive with this medication Moist heat to the area Please return to the ED for any worsening or changing symptoms - Billing Disposition and Condition Condition: STABLE Disposition: Home - Attestation Statements Provider Attestation: I was available for consultation for this patient. I did not evaluate the patient or participate in any medical decision making or disposition decisions unless I am specifically named in the chart as having consulted on the patient. If I have consulted on the patient, please see my own ED note on the patient encounter. Desmond Blue MD
== END 2019-05-02 13:00 | disposition home or self-care (01) ==
LOC: ED 09:25
DX: O90.89 Other complications of the puerperium, not elsewhere classified (principal); R10.30 Lower abdominal pain, unspecified; M54.32 Sciatica, left side; F17.210 Nicotine dependence, cigarettes, uncomplicated; R55 Syncope and collapse
CPT/HCPCS: 36415; 80053; 81003; 81015; 83605; 83690; 83735; 85025; 85610; 86140; 96374; 96375; 99283; J1885; J3360

== ENCOUNTER 2019-05-13 11:41 | Emergency (ER) | payer OTHER ==
--- NOTE | 2019-05-13 11:53 | ED ---
Neurological HPI - HPI Summary HPI Summary: This patient is a 33 year old F BIBA via EMS to ED with a chief complaint of generalized tonic-clonic seizure since [employer]. Patient is 17 days and was at the radiochemical technician when she had a witnessed seizure. Patient bit her tongue very hard and broke a tooth. She did not have urinary incontinence. 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 Upon EMS arrival to the patient, she was alert and oriented and has been since. In the ED room, patient reports feeling dizzy. The patient rates the pain 8/10 in severity. Symptoms aggravated by nothing. Symptoms alleviated by nothing. Her baby is with the grandfather at the radiochemical technician. - History of Current Complaint Stated Complaint: SEIZURE Hx Obtained From: Patient, EMS Hx Last Menstrual Period: 05/08/18 Onset/Duration: Sudden Onset, Started minutes ago - [employer], Resolved Timing: Sudden Onset Onset Severity: Severe Current Severity: None Seizure Severity: Severe Number of Seizures: 1 Pain Intensity: 8 Pain Scale Used: 0-10 Numeric Character: Dizzy Seizure Character: Generalized, Total-Clonic Aggravating: Nothing Alleviating: Nothing Associated Signs and Symptoms: Positive: Dizziness. Negative: Incontinent Bladder/Bowel Related Hx: Seizure - Additional Pertinent History Primary Care Physician: [id number] - Allergy/Home Medications Allergies/Adverse Reactions: Allergies Allergy/AdvReac Type Severity Reaction Status Date / Time propoxyphene Allergy Intermediate skin rash Verified 05/13/19 11:56 [From Darvocet-N] cephalexin [From Keflex] AdvReac Severe Unknown Verified 05/13/19 11:56 Reaction Details clarithromycin [From Biaxin] AdvReac Severe Nausea And Verified 05/13/19 11:56 Vomiting cyclobenzaprine AdvReac Severe See Comment Verified 05/13/19 11:56 [From Flexeril] divalproex sodium AdvReac Severe Abdominal Verified 05/13/19 11:56 [From Depakote] Pain doxycycline AdvReac Severe Rash Verified 05/13/19 11:56 morphine AdvReac Severe Anaphylatic Verified 05/13/19 11:56 Shock naproxen AdvReac Severe Abdominal Verified 05/13/19 11:56 Pain Penicillins AdvReac Severe Hives/Diff. Verified 05/13/19 11:56 Breathing/I tching trimethoprim [From Bactrim] AdvReac Severe Nausea Verified 05/13/19 11:56 metaxalone [From Skelaxin] AdvReac Intermediate See Comment Verified 05/13/19 11 :56 miracle whip AdvReac Severe n/v, Uncoded 05/13/19 11:56 itchy. hives ragu spanedaetti sauce AdvReac Severe n/v, Uncoded 05/13/19 11:56 hives, itchiness PMH/Surg Hx/FS Hx/Imm Hx Endocrine/Hematology History: Denies: Hx Anticoagulant Therapy, Hx Blood Disorders, Hx Diabetes Cardiovascular History: Reports: Hx Syncope, Other Cardiovascular Problems/ Disorders - low blood pressure Denies: Hx Hypertension, Hx Pacemaker/ICD Respiratory History: Reports: Other Respiratory Problems/Disorders - insomnia Denies: Hx Asthma, Hx Chronic Obstructive Pulmonary Disease (COPD) GI History: Reports: Hx Gastroesophageal Reflux Disease - on med, Hx Irritable Bowel, Hx Ulcer - stomach ulcers and an ulcer in esophagus, Other GI Disorders - DIVERTICULITIS-? History: Reports: Other Problems/Disorders - polycystic ovarian syndrome Denies: Hx Dialysis, Hx Renal Disease Musculoskeletal History: Reports: Hx Arthritis, Hx Back Problems, Hx Orthopedic Injury, Hx Osteoporosis - spondylolisthesis, Hx Tendonitis, Other Musculoskeletal History - reports multiple fractures in past, chronic right arm pain and injury/ulnar Denies: Hx Rheumatoid Arthritis Sensory History: Denies: Hx Cataracts, Hx Contacts or Glasses, Hx Hearing Aid Opthamlomology History: Denies: Hx Cataracts, Hx Contacts or Glasses Neurological History: Reports: Hx Migraine - on med prn, Hx Nerve Disease - fibromyalgia, Hx Spinal Cord Injury - fx of L4, L5 S1, Other Neuro Impairments/ Disorders - reports she has a pituitary adenoma Psychiatric History: Reports: Hx Anxiety - NO MEDICATION FOR AT THIS TIME, Hx Depression - NO MEDICATION FOR AT THIS TIME, Hx Post Traumatic Stress Disorder, Hx Community Mental Health Tx Denies: Hx Attention Deficit Hyperactivity Disorder, Hx Eating Disorder, Hx Panic Disorder, Hx Inpatient Treatment, Hx Schizophrenia, Hx Bipolar Disorder, Hx Suicide Attempt, Hx of Violent Episodes Against Others, Hx Substance Abuse, Other Psychiatric Issues/Disorders - Cancer History Cancer Type, Location and Year: None reported Hx Chemotherapy: No - Surgical History Surgery Procedure, Year, and Place: Right wrist surgery/RIGHT ELBOW 05/17/172017 RIGHT SHOULDER SURGERYx2. tonsillectomy 1989 - [place]. right ovarian [place] 2006 [facility] [place] 2006 - [facility] [place] 2006 - [facility] [place]. teeth extraction ( one in office and one at [facility] [place] ear biopsy - 2014 [facility] [place]. ENDOSCOPIES/COLONOSCOPIES Hx Anesthesia Reactions: No - Immunization History Date of Tetanus Vaccine: UTD Date of Influenza Vaccine: NO Infectious Disease History: Denies: Hx Clostridium Difficile, Hx Hepatitis, Hx Human Immunodeficiency Virus (HIV), Hx of Known/Suspected MRSA, Hx Shingles, Hx Tuberculosis, Hx Known/ Suspected VRE, Hx Known/Suspected VRSA, History Other Infectious Disease, Traveled Outside the [place] in Last 30 Days - Family History Known Family History: Positive: Cardiac Disease - mom, Diabetes - Social History Alcohol Use: None Hx Substance Use: Yes - not currently Substance Use Type: Reports: None Substance Use Comment - Amount & Last Used: hx cannabis use Hx Tobacco Use: Yes Smoking Status (MU): Light Every Day Tobacco Smoker Type: Cigarettes Amount Used/How Often: 1/2 PPD Length of Time of Smoking/Using Tobacco: since 17yo Have You Smoked in the Last Year: Yes Review of Systems ENT: Other - Tongue pain, broken tooth Negative: incontinence Neurological: Other - Dizzy All Other Systems Reviewed And Are Negative: Yes Physical Exam - Summary Physical Exam Summary: Appearance: The patient is well-nourished in no acute distress and in no acute pain. Skin: The skin is warm and dry, and skin color reflects adequate perfusion. HEENT: small abrasion to the left side of her tongue, poor dentition, so I cannot tell where the broken tooth fragment is from Neck: The neck is supple with full range of motion and non-tender. There are no carotid bruits. There is no neck vein distension. Respiratory: Chest is non-tender. Lungs are clear to auscultation and breath sounds are symmetrical and equal. Cardiovascular: Heart is regular rate and rhythm. There is no murmur or rub auscultated. There is no peripheral edema and pulses are symmetrical and equal. Abdomen: The abdomen is soft and non-tender. There are normal bowel sounds heard in all four quadrants and there is no organomegaly palpated. Musculoskeletal: There is no back tenderness noted. Extremities are non-tender with full range of motion. There is good capillary refill. There is no peripheral edema or calf tenderness elicited. Neurological: Patient is alert and oriented to person, place and time. The patient has symmetrical motor strength in all four extremities. Cranial nerves are grossly intact. Deep tendon reflexes are symmetrical and equal in all four extremities. Psychiatric: The patient has an appropriate affect and does not exhibit any anxiety or depression. Triage Information Reviewed: Yes Vital Signs On Initial Exam: Initial Vitals Temp Pulse Resp BP Pulse Ox 98.0 F 79 18 122/97 98 05/13/19 11:51 05/13/19 11:51 05/13/19 11:51 05/13/19 11:51 05/13/19 11:51 Vital Signs Reviewed: Yes Procedures - Sedation Patient Received Moderate/Deep Sedation with Procedure: No Diagnostics - Laboratory Result Diagrams: 05/13/19 12:06 05/13/19 12:06 Lab Statement: Any lab studies that have been ordered have been reviewed, and results considered in the medical decision making process. - EKG 1156 Cardiac Rate: NL - 76 BPM EKG Rhythm: Sinus Rhythm ST Segment: Normal Ectopy: None Summary of EKG Findings: Normal sinus rhythm at 76 BPM, normal ST, no ectopy, no STEMI. Dr. Skinner has reviewed and interpreted this EKG. Re-Evaluation - Re-Evaluation First Eval Re-Evaluation Time: 14:20 Comment: Discussed results with patient. Patient will be discharged home with dx of breakthrough seizure. Patient understands and agrees with this plan. Course/Dx - Course Course Of Treatment: Ms. Galvan had a witnessed seizure in the radiochemical technician's office today. He came without warning and she was left with a mild headache. She is 17 days . She has been having headaches on and off since but has a history of nearly daily migraines. She was getting Imitrex prior to the . She had no complications with the . On arrival she is nontoxic in appearance is stable vital she is not hypertensive. She does not have peripheral edema. Her labs show no evidence for eclampsia or HELLP syndrome. She remained stable here in the department and I think she had a breakthrough seizure. I'm going to give her prescription for Imitrex for her headaches and recommended follow-up with her doctor this week. - Diagnoses Provider Diagnoses: Breakthrough seizure Discharge ED - Sign-Out/Discharge Documenting (check all that apply): Patient Departure - Discharge - Discharge Plan Condition: Stable Disposition: HOME Prescriptions: SUMAtriptan TAB* [Imitrex TAB*] 50 mg PO SEE INSTRUCTIONS PRN #20 tab PRN Reason: Headache Patient Education Materials: Generalized Tonic Clonic Seizures (ED) Referrals: Adal Mendieta MD [Medical Doctor] - 3 Days Additional Instructions: Please follow-up with Dr. Mendieta in 2-3 days. RETURN TO THE ER FOR WORSENING OR CHANGING SYMPTOMS. - Billing Disposition and Condition Condition: STABLE Disposition: Home - Attestation Statements Document Initiated by Yanciibe: Yes Documenting Scribe: Ivan Kc Provider For Whom Kvng is Documenting (Include Credential): Dax Skinner MD Scribe Attestation: I, Ivan Kc, scribed for Dax Skinner MD on 05/13/19 at 1720. Scribe Documentation Reviewed: Yes Provider Attestation: The documentation as recorded by the Ivan whittaker accurately reflects the service I personally performed and the decisions made by me, Dax Skinner MD Status of Scribe Document: Viewed
[2019-05-13 12:13] LABS: ABS Basophils 0.1 10^3/ul (0-0.2); ABS Eosinophils 0.2 10^3/ul (0-0.6); ABS Lymphocytes 1.1 10^3/ul (1.0-4.8); ABS Monocytes 0.4 10^3/ul (0-0.8); ABS Neutrophils 3.6 10^3/ul (1.5-7.7); Eosinophil % 4.4 %; Hematocrit 36 % (35-47); Hemoglobin 11.9 g/dL (12.0-16.0); Lymphocyte % 19.8 %; Mean Corpuscular HGB Conc 33 g/dL (31-36); Mean Corpuscular Hemoglobin 29 pg (27-31); Mean Corpuscular Volume 87 fL (80-97); Mean Platelet Volume 8.7 fL (7.4-10.4); Platelet Count 334 10^3/uL (150-450); Red Blood Count 4.13 10^6 /uL (3.70-4.87); Red Cell Distribution Width 15 % (10-15); White Blood Count 5.4 10^3/uL (3.5-10.8)
[2019-05-13 12:18] LABS: INR 0.91 (0.82-1.09)
[2019-05-13 12:29] LABS: Albumin/Globulin Ratio 1.5 (1-3); BUN/Creatinine Ratio 16.7 (8-20); Calcium 8.9 mg/dL (8.6-10.3); EGFR African American 103.6 (>60); EGFR Non-African American 85.6 (>60); Globulin 2.7 g/dL (2-4); Magnesium 1.6 mg/dL (1.9-2.7); Potassium 4.5 mmol/L (3.5-5.0); Total Bilirubin 0.4 mg/dL (0.2-1.0); Total Protein 6.7 g/dL (6.4-8.9)
[2019-05-13 13:44] LABS: Urine Appearance Clear; Urine Bacteria Absent (Absent); Urine Bilirubin Negative (Negative); Urine Blood 2+ (Negative); Urine Color Yellow; Urine Glucose Negative (Negative); Urine Ketones Negative (Negative); Urine Nitrite Negative (Negative); Urine Protein Negative (Negative); Urine Red Blood Cell 2+(6-10/hpf) (Absent); Urine Specific Gravity 1.012 (1.010-1.030); Urine Squamous Epithelial Cell Present (Absent); Urine Urobilinogen Negative (Negative); Urine White Blood Cell 1+(6-10/hpf) (Absent)
[2019-05-13 14:25] LABS: Urine Benzodiazepine Screen None Detected (None Detect); Urine Opiates Screen None Detected (None Detect)
[2019-05-13 14:43] VITALS: BP 120/62
--- NOTE | 2019-05-16 05:47 | ED ---
Imaging and Labs Follow Up Follow Up Type: Labs/Cultures Labs/Culture Result: Urine culture final strep group B 10-25,000 Patient Communication/Plan: This is moderate colony count Treatment unnecessary Patient asymptomatic Provider Diagnoses: Breakthrough seizure
== END 2019-05-13 14:31 | disposition home or self-care (01) ==
LOC: ED 11:41
DX: G40.909 Epilepsy, unspecified, not intractable, without status epilepticus (principal); S02.5XXA Fracture of tooth (traumatic), initial encounter for closed fracture; S00.512A Abrasion of oral cavity, initial encounter; X58.XXXA Exposure to other specified factors, initial encounter; Y92.531 Health care provider office as the place of occurrence of the external cause; R42 Dizziness and giddiness; K21.9 Gastro-esophageal reflux disease without esophagitis; G43.909 Migraine, unspecified, not intractable, without status migrainosus; Z88.6 Allergy status to analgesic agent; Z88.1 Allergy status to other antibiotic agents; Z88.5 Allergy status to narcotic agent; Z88.0 Allergy status to penicillin; Z88.2 Allergy status to sulfonamides; Z88.8 Allergy status to other drugs, medicaments and biological substances; Z91.018 Allergy to other foods; F17.210 Nicotine dependence, cigarettes, uncomplicated
CPT/HCPCS: 36415; 80053; 80307; 81003; 81015; 83605; 83735; 85025; 85610; 87077; 87086; 93005; 99283

== ENCOUNTER 2019-06-11 18:36 | Emergency (ER) | payer OTHER ==
--- NOTE | 2019-06-11 18:58 | ED ---
Neurological HPI - HPI Summary HPI Summary: Patient is a 34 y/o F presenting to the ED for a chief complaint of seizure activity on 06/11/19. Patient is present with her boyfriend. Patient reports having a seizure during which she hit her head and broke her glasses. The seizure was unwitnessed. Patient now complains of shortness of breath, tongue pain, headache, left-sided neck pain, right hand pain, and bilateral LE pain that she describes as "heaviness." Patient denies any fever, chills, erythema of eyes, sore throat, CP, cough, abdominal pain, N/V, diarrhea, dysuria, hematuria, edema, rash, syncope, or dizziness. She denies any aggravating or alleviating factors. She states this is her second seizure in the last month. Her first seizure in the last month was a grand mal seizure that occurred one month ago and was witnessed by her boyfriend. She has had an EEG with unremarkable findings and a brain MRI for which she is awaiting results. Patient was given a referral to a neurologist, but has not yet made an appointment. She has seen a neurologist in the past for a L4, L5, and S1 spinal fracture. PMHx is significant for a brain tumor for which she was prescribed medication that is not currently covered by her insurance. PSHx is significant for carpal tunnel surgery, rotator cuff surgery, and ulnar nerve surgery. She denies taking seizure medication. Patient denies alcohol or drug use. - History of Current Complaint Chief Complaint: EDSeizure Stated Complaint: SEIZURE Time Seen by Provider: 06/11/19 18:46 Hx Obtained From: Patient Hx Last Menstrual Period: 05/08/18 Onset/Duration: Sudden Onset, Resolved Timing: Sudden Onset Onset Severity: Moderate Current Severity: Moderate Seizure Severity: Moderate Number of Seizures: 1 Pain Intensity: 10 Pain Scale Used: 0-10 Numeric Syncope Context: Unwitnessed Seizure Character: Generalized Aggravating: Nothing Alleviating: Nothing Associated Signs and Symptoms: Positive: Headache, Seizure, Pain - Tongue pain, left-sided neck pain, right hand pain, and bilateral LE pain. Negative: Loss of Consciousness, Dizziness, Nausea/Vomiting, Fever, Chest Pain, Shortness of Breath - Additional Pertinent History Primary Care Physician: [id number] - Allergy/Home Medications Allergies/Adverse Reactions: Allergies Allergy/AdvReac Type Severity Reaction Status Date / Time propoxyphene Allergy Intermediate skin rash Verified 06/05/19 14:34 [From Darvocet-N] cephalexin [From Keflex] AdvReac Severe Unknown Verified 06/05/19 14:34 Reaction Details clarithromycin [From Biaxin] AdvReac Severe Nausea And Verified 06/05/19 14:34 Vomiting cyclobenzaprine AdvReac Severe See Comment Verified 06/05/19 14:34 [From Flexeril] divalproex sodium AdvReac Severe Abdominal Verified 06/05/19 14:34 [From Depakote] Pain doxycycline AdvReac Severe Rash Verified 06/05/19 14:34 morphine AdvReac Severe Anaphylatic Verified 06/05/19 14:34 Shock naproxen AdvReac Severe Abdominal Verified 06/05/19 14:34 Pain Penicillins AdvReac Severe Hives/Diff. Verified 06/05/19 14:34 Breathing/I tching trimethoprim [From Bactrim] AdvReac Severe Nausea Verified 06/05/19 14:34 metaxalone [From Skelaxin] AdvReac Intermediate See Comment Verified 06/05/19 14 :34 miracle whip AdvReac Severe n/v, Uncoded 06/05/19 14:34 itchy. hives ragu spaghetti sauce AdvReac Severe n/v, Uncoded 06/05/19 14:34 hives, itchiness PMH/Surg Hx/FS Hx/Imm Hx Previously Healthy: Yes Endocrine/Hematology History: Denies: Hx Anticoagulant Therapy, Hx Blood Disorders, Hx Diabetes Cardiovascular History: Reports: Hx Syncope, Other Cardiovascular Problems/ Disorders - low blood pressure Denies: Hx Hypertension, Hx Pacemaker/ICD Respiratory History: Reports: Other Respiratory Problems/Disorders - insomnia Denies: Hx Asthma, Hx Chronic Obstructive Pulmonary Disease (COPD) GI History: Reports: Hx Gastroesophageal Reflux Disease - on med, Hx Irritable Bowel, Hx Ulcer - stomach ulcers and an ulcer in esophagus, Other GI Disorders - DIVERTICULITIS-? History: Reports: Other Problems/Disorders - polycystic ovarian syndrome Denies: Hx Dialysis, Hx Renal Disease Musculoskeletal History: Reports: Hx Arthritis, Hx Back Problems, Hx Orthopedic Injury, Hx Osteoporosis - spondylolisthesis, Hx Tendonitis, Hx of Fracture(s) - L4, L5, S1, Other Musculoskeletal History - reports multiple fractures in past, chronic right arm pain and injury/ulnar Denies: Hx Rheumatoid Arthritis Sensory History: Denies: Hx Cataracts, Hx Contacts or Glasses, Hx Legally Blind, Hx Deafness, Hx Hearing Aid Opthamlomology History: Denies: Hx Cataracts, Hx Contacts or Glasses, Hx Legally Blind EENT History: Denies: Hx Deafness Neurological History: Reports: Hx Migraine - on med prn, Hx Nerve Disease - fibromyalgia, Hx Spinal Cord Injury - fx of L4, L5 S1, Other Neuro Impairments/ Disorders - reports she has a pituitary adenoma Psychiatric History: Reports: Hx Anxiety - NO MEDICATION FOR AT THIS TIME, Hx Depression - NO MEDICATION FOR AT THIS TIME, Hx Post Traumatic Stress Disorder, Hx Community Mental Health Tx Denies: Hx Attention Deficit Hyperactivity Disorder, Hx Eating Disorder, Hx Panic Disorder, Hx Inpatient Treatment, Hx Schizophrenia, Hx Bipolar Disorder, Hx Suicide Attempt, Hx of Violent Episodes Against Others, Hx Substance Abuse, Other Psychiatric Issues/Disorders - Cancer History Cancer Type, Location and Year: None reported Hx Chemotherapy: No - Surgical History Surgical History: Yes Surgery Procedure, Year, and Place: Right wrist surgery/RIGHT ELBOW 05/17/17. 2017 RIGHT SHOULDER SURGERYx2. tonsillectomy 1989 [place]. right [place] 2006 [facility] [place] 2006 [facility] [place] [facility] [place] teeth extraction ( one in office and [place] [facility] [place] ear biopsy - [place] [facility] [place] ENDOSCOPIES/COLONOSCOPIES Hx Anesthesia Reactions: No - Immunization History Date of Tetanus Vaccine: UTD Date of Influenza Vaccine: NO Infectious Disease History: No Infectious Disease History: Denies: Hx Clostridium Difficile, Hx Hepatitis, Hx Human Immunodeficiency Virus (HIV), Hx of Known/Suspected MRSA, Hx Shingles, Hx Tuberculosis, Hx Known/ Suspected VRE, Hx Known/Suspected VRSA, History Other Infectious Disease, Traveled Outside the in Last 30 Days - Family History Known Family History: Positive: Cardiac Disease - mom, Diabetes - Social History Occupation: Unemployed Lives: With Family Alcohol Use: None Hx Substance Use: Yes - not currently Substance Use Type: Reports: Marijuana Substance Use Comment - Amount & Last Used: hx cannabis use Hx Tobacco Use: Yes Smoking Status (MU): Light Every Day Tobacco Smoker Type: Cigarettes Amount Used/How Often: 1/2 PPD Length of Time of Smoking/Using Tobacco: since 17yo Have You Smoked in the Last Year: Yes Review of Systems Negative: Fever, Chills Negative: Erythema Positive: Other - Positive tongue pain. Negative: Sore Throat Negative: Chest Pain Negative: Shortness Of Breath, Cough Negative: Abdominal Pain, Vomiting, Nausea Negative: dysuria, hematuria Positive: Myalgia - Left-sided neck pain, right hand pain, and bilateral LE pain. Negative: Edema Negative: Rash Neurological: Other - Positive seizure; negative dizziness Positive: Headache. Negative: Syncope All Other Systems Reviewed And Are Negative: Yes Physical Exam - Summary Physical Exam Summary: Constitutional: Well-developed, Well-nourished, Alert. (-) Distressed Skin: Warm, Dry HENT: Normocephalic; Atraumatic. PIP joint is swollen in all fingers of the right hand, no obvious bite epstein, abrasion over left upper eyelid with swelling. Eyes: Conjunctiva normal Neck: Musculoskeletal ROM normal neck. (-) JVD, (-) Stridor, (-) Tracheal deviation Cardio: Rhythm regular, rate normal, Heart sounds normal; Intact distal pulses; The pedal pulses are 2+ and symmetric. Radial pulses are 2+ and symmetric. (-) Murmur Pulmonary/Chest wall: Effort normal. (-) Respiratory distress, (-) Wheezes, (-) Rales Abd: Soft, (-) tenderness, (-) Distension, (-) Guarding, (-) Rebound Musculoskeletal: (-) Edema Lymph: (-) Cervical adenopathy Neuro: Alert, Oriented x3 Psych: Mood and affect Normal Triage Information Reviewed: Yes Vital Signs On Initial Exam: Initial Vitals Temp Pulse Resp BP Pulse Ox 97.0 F 85 14 130/84 100 06/11/19 18:38 06/11/19 18:38 06/11/19 18:38 06/11/19 18:38 06/11/19 18:38 Vital Signs Reviewed: Yes - [place] Coma Scale Best Eye Response: 4 - Spontaneous Best Motor Response: 6 - Obeys Commands Best Verbal Response: 5 - Oriented Coma Scale Total: 15 Procedures - Sedation Patient Received Moderate/Deep Sedation with Procedure: No Diagnostics - Vital Signs Vital Signs Temp Pulse Resp BP Pulse Ox 06/11/19 18:38 97.0 F 85 14 130/84 100 - Laboratory Result Diagrams: 06/11/19 19:21 06/11/19 19:21 Lab Statement: Any lab studies that have been ordered have been reviewed, and results considered in the medical decision making process. - Radiology Hand X-ray Radiology Interpretation Completed By: Radiologist Summary of Radiographic Findings: Hand X-ray IMPRESSION: no acute disease. Reviewed and interpreted by Dr. Aldana. - CT Brain CT CT Interpretation Completed By: Radiologist Summary of CT Findings: Brain CT IMPRESSION: No acute intracranial abnormality. Reviewed by Dr. Aldana. Cervical Spine CT CT Interpretation Completed By: Radiologist Summary of CT Findings: Cervical Spine CT IMPRESSION: No acute findings. Reviewed by Dr. Aldana. - EKG 19:05 Cardiac Rate: NL - 66 BPM EKG Rhythm: Sinus Rhythm ST Segment: Normal Ectopy: None Summary of EKG Findings: EKG at 19:05 shows 66 BPM with normal sinus rhythm, no STEMI. Reviewed and interpreted by Dr. Aldana. Course/Dx - Course Course Of Treatment: Patient is a 34 y/o F presenting to the ED for a chief complaint of seizure activity on 06/11/19. Patient is present with her boyfriend. Patient reports having a seizure during which she hit her head and broke her glasses. The seizure was unwitnessed. Patient now complains of shortness of breath, tongue pain, headache, left-sided neck pain, right hand pain, and bilateral LE pain that she describes as "heaviness." Patient denies any fever, chills, erythema of eyes, sore throat, CP, cough, abdominal pain, N/V , diarrhea, dysuria, hematuria, edema, rash, syncope, or dizziness. She denies any aggravating or alleviating factors. She states this is her second seizure. Her first seizure was a grand mal seizure that occurred one month ago and was witnessed by her boyfriend. She has had an EEG with unremarkable findings and a brain MRI for which she is awaiting results. Patient was given a referral to a neurologist, but has not yet made an appointment. She has seen a neurologist in the past for a L4, L5, and S1 spinal fracture. PMHx is significant for a brain tumor for which she was prescribed medication that is not currently covered by her insurance. PSHx is significant for carpal tunnel surgery, rotator cuff surgery, and ulnar nerve surgery. Patient denies alcohol or drug use. On exam, PIP joint is swollen in all fingers of the right hand, no obvious bite epstein, abrasion over left upper eyelid with swelling. EKG at 19:05 shows 66 BPM with normal sinus rhythm, no STEMI. Laboratory abnormal findings: Hgb 11.6, sodium 134, magnesium 1.8. In the ED course, patient was given Topamax 50 mg PO, acetaminophen 975 mg PO, and Magox [address] IMPRESSION: No acute intracranial abnormality. Hand X-ray IMPRESSION: no acute disease. Cervical Spine CT IMPRESSION: No acute findings. At 21:05, Dr. Florentino will attempt to expedite outpatient workup. He recommends that the patient start 50 mg Topamax at night and she is advised not to drive. Patient will be discharged with a diagnosis of seizure and hand contusion. Follow up with neurology in 2-3 days. - Diagnoses Provider Diagnoses: Seizure, Hand contusion - Physician Notifications Discussed Care Of Patient With: Kamaljit Florentino - At 21:05, Dr. Florentino will attempt to expedite outpatient workup. He recommends that the patient start 50 mg Topamax at night and she is advised not to drive. Time Discussed With Above Provider: 21:05 Instructed by Provider To: Have Pt Call For Appt. Discharge ED - Sign-Out/Discharge Documenting (check all that apply): Patient Departure - Discharge - Discharge Plan Condition: Stable Disposition: HOME Patient Education Materials: Recurrent Seizures in Adults (ED), Driving Restrictions (ED) Forms: *Gen. Provider Communication Referrals: Rosa Torres MD [Primary Care Provider] - Kamaljit Florentino MD [Medical Doctor] - Additional Instructions: RETURN TO THE EMERGENCY DEPARTMENT FOR CHANGING OR WORSENING SYMPTOMS. Follow up with your primary care provider and Dr. Florentino in 2-[address] - Attestation Statements Document Initiated by Scribe: Yes Documenting Scribe: Leti Conn Provider For Whom Scribe is Documenting (Include Credential): Rogelio Aldana MD Scribe Attestation: Leti Trevizo, scribed for Rogelio Aldana MD on 06/11/19 at 9212. Status of Scribe Document: Ready
[2019-06-11] MEDS ORDERED: Acetaminophen TAB* 325 MG PO ONE (19:00)
[2019-06-11 19:31] LABS: ABS Basophils 0.1 10^3/ul (0-0.2); ABS Eosinophils 0.2 10^3/ul (0-0.6); ABS Lymphocytes 1.4 10^3/ul (1.0-4.8); ABS Monocytes 0.7 10^3/ul (0-0.8); ABS Neutrophils 7.3 10^3/ul (1.5-7.7); Hematocrit 35 % (35-47); Hemoglobin 11.6 g/dL (12.0-16.0); Lymphocyte % 14.9 %; Mean Corpuscular HGB Conc 33 g/dL (31-36); Mean Corpuscular Hemoglobin 28 pg (27-31); Mean Corpuscular Volume 84 fL (80-97); Mean Platelet Volume 9.6 fL (7.4-10.4); Platelet Count 267 10^3/uL (150-450); Red Blood Count 4.17 10^6 /uL (3.70-4.87); Red Cell Distribution Width 15 % (10-15); White Blood Count 9.6 10^3/uL (3.5-10.8)
[2019-06-11 19:43] LABS: INR 1.06 (0.82-1.09)
[2019-06-11 19:46] LABS: Albumin 4.3 g/dL (3.2-5.2); Albumin/Globulin Ratio 1.7 (1-3); Calcium 8.8 mg/dL (8.6-10.3); EGFR African American 88.4 (>60); Globulin 2.5 g/dL (2-4); Magnesium 1.8 mg/dL (1.9-2.7); Potassium 3.5 mmol/L (3.5-5.0); Total Bilirubin 0.5 mg/dL (0.2-1.0); Total Protein 6.8 g/dL (6.4-8.9)
[2019-06-11] MEDS ORDERED: Magnesium Oxide TAB* 400 MG PO ONE (20:08)
[2019-06-11 21:05] LABS: Urine Appearance Clear; Urine Bilirubin Negative (Negative); Urine Blood Negative (Negative); Urine Color Yellow; Urine Glucose Negative (Negative); Urine Ketones Negative (Negative); Urine Nitrite Negative (Negative); Urine Protein Negative (Negative); Urine Specific Gravity 1.011 (1.010-1.030); Urine Urobilinogen Negative (Negative)
[2019-06-11] MEDS ORDERED: Topiramate TAB(*) 25 MG PO ONE (21:05)
[2019-06-11] MEDS ORDERED: oxyCODONE/Acetamin 5/325 MG* TAB PO ONE (21:15)
[2019-06-11 21:17] VITALS: BP 111/75
--- OUTSIDE RECORDS SUMMARY | 2019-06-13 16:10 | XMS REPORT | Continuity of Care Document ---
:1985 External Reference #:[id number] Author Name Maritza Del Cid M.D. (transmitted by agent of provider Leigha Sanchez ) Address [address] [facility], [place] [address] Care Team Providers Name Role Phone Destin Mayer M.D. - Family Medicine Care Team Information Service Bar Cashier [phone] Jimmy Becker DO - Interventional Care Team Information Service Bar Cashier [phone] Pain Medicine [facility] - Sleep Disorder Care Team Information Service Bar Cashier [phone] Diagnostic Dwayne Fermin MD - Orthopaedic Care Team Information Service Bar Cashier [phone] Surgery Milton Moreno MD - Otolaryngology Care Team Information Service Bar Cashier Mars Snyder MD - Interventional Care Team Information Service Bar Cashier [phone] Pain Medicine Belgica Cueto MD - Endocrinology, Care Team Information Service Bar Cashier [phone] Diabetes & Metabolism Kamaljit Soria M.D. - Neurological Care Team Information Service Bar Cashier Surgery Rosa Torres M.D. - Family Medicine Care Team Information Service Bar Cashier [phone] Adal Mendieta MD - Endocrinology, Care Team Information Service Bar Cashier Diabetes & Metabolism Nelson Schmid M.D. - Neurology Care Team Information Service Bar Cashier Problems Active Problems Provider Date Congenital spondylolysis of lumbosacral Leatha Jenkins M.D. Onset: 06/26/2011 region Syncope and collapse Milton Cai M.D. Onset: 06/21/2013 Anxiety state Milton Cai M.D. Onset: 06/21/2013 Dizziness and giddiness Milton Cai M.D. Onset: 11/20/2013 Orthostatic hypotension Milton Cai M.D. Onset: 11/20/2013 Insomnia EARNEST Rivas Onset: 11/27/2013 Respiratory symptom EARNEST Rivas Onset: 11/27/2013 Chest pain Milton Cai M.D. Onset: 05/01/2014 Low back pain Rc Philippe M.D. Onset: 05/24/2014 Myalgia & Myositis Unspecified Rc Philippe M.D. Onset: 05/24/2014 Blood chemistry abnormal Rc Philippe M.D. Onset: 05/24/2014 Spondylolisthesis L5/S1 level Laz Dominguez M.D. Onset: 04/12/2015 Moderate recurrent major depression Hernandez Rocha M.D. Onset: 12/25/2015 Thoracic and lumbosacral neuritis Hernandez Rocha M.D. Onset: 01/07/2016 Knee pain Hernandez Rocha M.D. 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 Onset: 03/20/2016 Acute pharyngitis Hernandez Rocha M.D. Onset: 05/21/2016 Gastroduodenitis Hernandez Rocha M.D. Onset: 09/01/2016 Vomiting, unspecified Hernandez Rocha M.D. Onset: 09/01/2016 Abdominal pain Hernanedz Rocha M.D. Onset: 09/01/2016 Closed anterior dislocation of humerus Jourdan Workman MD Onset: 02/23/2017 Sprain of shoulder and upper arm Jourdan Workman MD Onset: 02/23/2017 Injury of shoulder region Jourdan Workman MD Onset: 02/23/2017 Lesion of ulnar nerve Damon Cuevas MD Onset: 03/10/2017 Other specific joint derangements of right Damon Cuevas MD Onset: 2016 wrist, not elsewhere classified Disorder of pituitary gland Hernandez Rocha M.D. Onset: 04/09/2017 Cellulitis and abscess of face Hernandez Rocha M.D. Onset: 06/18/2017 Migraine Hernandez Rocha M.D. Onset: 06/28/2017 Bicipital tenosynovitis Jourdan Workman MD Onset: 11/09/2017 Incomplete rotator cuff tear or rupture of Jourdan Workman MD Onset: 11/09/2017 right shoulder, not specified as traumatic Unspecified sprain of right wrist, Damon Cuevas MD Onset: 12/24/2017 subsequent encounter Gastroesophageal reflux disease Hernandez Rocha M.D. Onset: 01/26/2018 Tobacco user Hernandez Rocha M.D. Onset: 01/26/2018 Mixed hyperlipidemia Hernandez Rocha M.D. Onset: 01/26/2018 Mild recurrent major depression Hernandez Rocha M.D. Onset: 01/26/2018 Shoulder stiff Jourdan Workman MD Onset: 03/22/2018 Localized, secondary osteoarthritis of the Jorudan Workman MD Onset: 04/28/2018 shoulder region Disorder of shoulder Jourdan Workman MD Onset: 04/28/2018 Social History Type Date Description Comments Sex Unknown Tobacco Use Start: Unknown Current Cigarette Smoker 1 Pack Daily Cigarette Use Pack Years - 14 ETOH Use Denies alcohol use Recreational Drug Use Denies Drug Use Tobacco Use Start: Unknown Patient is a current smoker, smokes every day Tobacco Use Start: Unknown Light tobacco smoker (10 or fewer cigarettes/day) Smoking Status Reviewed: 05/16/19 Light tobacco smoker (10 or fewer cigarettes/day) Exercise Type/Frequency Exercises rarely Allergies, Adverse Reactions, Alerts Active Allergies Reaction Severity Comments Date Penicillin 03/27/2011 Amoxicillin 03/27/2011 Ampicillin 03/27/2011 Biaxin 03/27/2011 Keflex 03/27/2011 Demerol 03/27/2011 Darvocet 03/27/2011 Toradol 03/27/2011 Ultram 03/27/2011 Bactrim 03/27/2011 Morphine 03/27/2011 Doxycycline 03/27/2011 Flexeril 03/27/2011 Skelaxin 03/27/2011 Miracle Whip, Ragu Sauce 03/27/2011 Depakote severe stomach pain Moderate 12/29/2013 Naproxen severe stomach pain 05/16/2019 Medications Active Medications SIG Qnty Indications Ordering Date Provider Meloxicam 1 by mouth every 20tabs G50.1 [facility] 05/16/2019 15mg Tablets day Tima Del Cid Sumatriptan Succinate take 1 tablet by 9tabs G43.909 [facility] 03/24/2018 mouth at onset of Tima Del Cid 100mg Tablets headache. may repeat after 2 hours as needed needs appointment Acetaminophen 2 tab 3 times 90tabs M54.5 [place] 12/16/2017 500mg daily as needed Tima Rocha Tablets Omeprazole 1 by mouth every 30caps [place] 06/22/2017 40mg day as needed Tima Rocha Capsules DR Scales Allergy 1-2 tabs PO prn 14tabs Other Ordering 06/22/2017 25mg Provider Tablets Ibuprofen 1 tab three times 30tabs Other Ordering 06/22/2017 600mg Tablets a day prn pain Provider Walker/Adult/Folding dx: h/o vertebral 1units M54.5 Leatha Jenkins, 2012 [facility], [facility] [place] [facility] E888.9 Clindamycin HCL 1 tab by mouth three times a Unknown 300mg Capsules day for 5 days Medications Administered in Office Medication SIG Qnty Indications Ordering Provider Date Triamcinolone (Kenalog) Jourdan Workman MD 02/23/2017 Injection Immunizations CPT Code Status Date Vaccine Lot # [id number] Given 05/04/2013 Flu Vaccine NOS [id number] Given 10/27/2012 Tdap - Tetanus/Diptheria/Acellular Pertussis [id number] Vital Signs Date Vital Result Comment 05/16/2019 2:45pm Height 70 inches 5'10" Weight 190.00 lb Heart Rate 74 /min BP Systolic 122 mmHg BP Diastolic 84 mmHg O2 % BldC Oximetry 99 % BMI (Body Mass Index) 27.3 kg/m2 09/07/2018 4:15pm Height 70 inches 5'10" Weight 176.00 lb Heart Rate 59 /min BP Systolic Sitting 103 mmHg BP Diastolic Sitting 72 mmHg Body Temperature 96.8 F O2 % BldC Oximetry 97 % BMI (Body Mass Index) 25.3 kg/m2 Results Description No Information Available Procedures Date Code Description Status 06/24/2010 31546182 Mammogram Completed Medical Devices Description No Information Available Encounters Description No Information Available Assessments Date Code Description Provider 05/16/2019 G40.89 Other seizures Maritza Del Cid M.D. 05/16/2019 D35.2 Benign neoplasm of pituitary gland Maritza Del Cid M.D. 05/16/2019 Z72.0 Tobacco use Maritza Del Cid M.D. 05/16/2019 G50.1 Atypical facial pain Maritza Del Cid M.D. Plan of Treatment Future Appointment(s):07/10/2019 10:00 am - Maritza Del Cid M.D. at [facility]05/16/2019 - Maritza Del Cid M.D.G40.89 Other seizuresComments:[place] state: can't drive for 12 months after a seizureReferral: Nelson Schmid M.D., NeurologyFollow up:6 oybtnO42.2 Benign neoplasm of pituitary glandNew Xrays:MRI Brain W/O, Ordered: 05/16/19Referral:Adal Mendieta MD, ZeksdnbedvlsqR39.0 Tobacco useG50.1 Atypical facial painNew Medication: Meloxicam 15 mg - 1 by mouth every day Functional Status Description No Information Available Mental Status Description No Information Available Referrals Refer to Reason for Referral Status Appt Date Adal Mendieta MD Sent [address] [place] [address] [phone] Nelson Schmid M.D. Sent [address] [facility] [address] [facility] [place] [address] [place] [address] [phone]
== END 2019-06-11 21:20 | disposition home or self-care (01) ==
LOC: ED 18:36
DX: R56.9 Unspecified convulsions (principal); S60.221A Contusion of right hand, initial encounter; X58.XXXA Exposure to other specified factors, initial encounter; Y92.9 Unspecified place or not applicable; K21.9 Gastro-esophageal reflux disease without esophagitis; F41.9 Anxiety disorder, unspecified; F32.9 Major depressive disorder, single episode, unspecified; F43.10 Post-traumatic stress disorder, unspecified; F17.210 Nicotine dependence, cigarettes, uncomplicated; Z90.49 Acquired absence of other specified parts of digestive tract; Z88.6 Allergy status to analgesic agent; Z88.1 Allergy status to other antibiotic agents; Z88.5 Allergy status to narcotic agent; Z88.0 Allergy status to penicillin; Z88.8 Allergy status to other drugs, medicaments and biological substances
CPT/HCPCS: 36415; 70450; 72125; 80053; 81003; 83605; 83735; 85025; 85610; 93005; 99283; A9270-GY

== ENCOUNTER 2019-07-29 11:21 | Emergency (ER) | payer OTHER ==
--- OUTSIDE RECORDS SUMMARY | 2019-07-29 11:36 | XMS REPORT | Continuity of Care Document ---
:1985 External Reference #:[id number] Author Name Leandro Gagnon NP ([facility] Address [address], [place] [address] Care Team Providers Name Role Phone Destin Mayer M.D. - Family Medicine Care Team Information Anodic Treater Jimmy Becker DO - Interventional Care Team Information Anodic Treater Pain Medicine [facility] - Sleep Disorder Care Team Information Anodic Treater [phone] Diagnostic Dwayne Fermin MD - Orthopaedic Care Team Information Anodic Treater Surgery Milton Moreno MD - Otolaryngology Care Team Information Anodic Treater Mars Snyder MD - Interventional Care Team Information Anodic Treater [phone] Pain Medicine Belgica Cueto MD - Endocrinology, Care Team Information Anodic Treater Diabetes & Metabolism Kamaljit Soria M.D. - Neurological Care Team Information Anodic Treater Surgery Rosa Torres M.D. - Family Medicine Care Team Information Anodic Treater Adal Mendieta MD - Endocrinology, Care Team Information Anodic Treater Diabetes & Metabolism Nelson Schmid M.D. - Neurology Care Team Information Anodic Treater Problems Active Problems Provider Date Congenital spondylolysis of lumbosacral Leatha Jenkins M.D. Onset: 06/26/2011 region Syncope and collapse Milton Cai M.D. Onset: 06/21/2013 Anxiety state Milton Cai M.D. Onset: 06/21/2013 Dizziness and giddiness Milton Cai M.D. Onset: 11/20/2013 Orthostatic hypotension Milton Cai M.D. Onset: 11/20/2013 Insomnia EARNEST Rivas Onset: 11/27/2013 Myalgia & Myositis Unspecified Rc Philippe M.D. Onset: 05/24/2014 Spondylolisthesis L5/S1 level Laz Dominguez M.D. Onset: 04/12/2015 Moderate recurrent major depression Hernandez Rocha M.D. Onset: 12/25/2015 Thoracic and lumbosacral neuritis Hernandez Rocha M.D. 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 Onset: 03/20/2016 Closed anterior dislocation of humerus Jourdan Workman MD Onset: 02/23/2017 Lesion of ulnar nerve Damon Cuevas MD Onset: 03/10/2017 Other specific joint derangements of right Damon Cuevas MD Onset: 2016 wrist, not elsewhere classified Disorder of pituitary gland Hernandez Rocha M.D. Onset: 04/09/2017 Cellulitis and abscess of face Hernandez Rocha M.D. Onset: 06/18/2017 Bicipital tenosynovitis Jourdan Workman MD Onset: 11/09/2017 [...] Onset: 03/22/2018 Localized, secondary osteoarthritis of the Jourdan Workman MD Onset: 04/28/2018 shoulder region Disorder [...] (10 or fewer cigarettes/day) Smoking Status Reviewed: 07/21/19 Light tobacco smoker (10 or fewer cigarettes/day) [...] Medications SIG Qnty Indications Ordering Date Provider Amitriptyline HCL take one tab po at 120tabs G43.009 Kamaljit Mccoy 07/21/2019 hs for one wk, Tima Florentino 10mg Tablets take 2 tabs at hs for one wk, take 3 tabs at hs for one wk, take 4 tabs at hs Amitriptyline HCL take one tab po at 120tabs G43.009 Kamaljit Mccoy 07/21/2019 hs for one wk, Tima Florentino 10mg Tablets take 2 tabs at hs for one wk, take 3 tabs at hs for one wk, take 4 tabs at hs Sumatriptan take 1 tablet by 9tabs G43.909 Maritza 03/24/2018 Succinate mouth at onset of Tima Del Cid 100mg headache. may Tablets repeat after 2 hours as needed needs appointment Acetaminophen 2 tab 3 times 90tabs M54.5 Hernandez 12/16/2017 500mg daily as needed Tima Rocha Tablets Benadryl Allergy 1-2 tabs PO prn 14tabs Other Ordering 06/22/2017 25mg Provider Tablets Ibuprofen 1 tab three times 30tabs Other Ordering 06/22/2017 600mg a day prn pain Provider Tablets Walker/Adult/Folding dx: h/o vertebral 1units M54.5 Leatha Jenkins, 2012 fracture, kyphosis [facility] E888.9 Clindamycin HCL 1 tab by mouth three times a Unknown 300mg Capsules day for 5 days History Medications Meloxicam 1 by mouth 20tabs G50.1 Maritza Del Cid, 05/16/2019 - 15mg every day M.DRona 06/27/2019 Tablets Medications Administered in Office Medication SIG Qnty Indications Ordering Provider Date Triamcinolone (Kenalog) Jourdan Workman MD 02/23/2017 Injection Immunizations CPT Code Status Date Vaccine Lot # [id number] Given 05/04/2013 Flu Vaccine NOS 12074 Given 10/27/2012 Tdap - Tetanus/Diptheria/Acellular Pertussis [id number] Vital Signs Date Vital Result Comment 07/21/2019 10:56am Height 70 inches 5'10" Weight 193.25 lb Heart Rate 72 /min BP Systolic Sitting 118 mmHg BP Diastolic Sitting 78 mmHg Respiratory Rate 16 /min BMI (Body Mass Index) 27.7 kg/m2 07/19/2019 11:10am Height 70 inches 5'10" Heart Rate 104 /min BP Systolic 140 mmHg BP Diastolic 82 mmHg Respiratory Rate 18 /min Body Temperature 98.0 F Pain Level 9 Results Test Acquired Date Facility Test Result H/L Range Note Inr/Protime 06/11/2019 [facility] Inr 1.06 Normal 0.82-1.[address] [place] [address] [phone] CBC Auto 06/11/2019 [facility] White Blood 9.6 10^3/uL Normal 3.5-10.[address] [place] [address] [phone] Red Blood Count 4.17 10^6/uL Normal 3.70-4.87 Hemoglobin 11.6 g/dL Low 12.0-16.0 Hematocrit 35 % Normal 35-47 Mean Corpuscular Volume 84 fL Normal 80-97 Mean Corpuscular Hemoglobin 28 pg Normal 27-31 Mean Corpuscular HGB Conc 33 g/dL Normal 31-36 Red Cell Distribution Width 15 % Normal 10-15 Platelet Count 267 10^3/uL Normal 150-450 Mean Platelet Volume 9.6 fL Normal 7.4-10.4 Abs Neutrophils 7.3 10^3/uL Normal 1.5-7.7 Abs Lymphocytes 1.4 10^3/uL Normal 1.0-4.8 Abs Monocytes 0.7 10^3/uL Normal 0-0.8 Abs Eosinophils 0.2 10^3/uL Normal 0-0.6 Abs Basophils 0.1 10^3/uL Normal 0-0.2 Abs Nucleated RBC 0.0 10^3/uL Granulocyte % 75.4 % Lymphocyte % 14.9 % Monocyte % 6.9 % Eosinophil % 2.0 % Basophil % 0.8 % Nucleated Red Blood Cells % 0.0 Laboratory test 06/11/2019 [facility] Lactic Acid 0.9 mmol/L Normal 0.5-2.0 2 finding [address] [place] [address] [phone] Comp Metabolic 06/11/2019 [facility] Sodium 134 mmol/L Low 135 -145 Panel [address] [place] [address] [phone] Potassium 3.5 mmol/L Normal 3.5-5.0 Chloride 102 mmol/L Normal 101-111 Co2 Carbon Dioxide 25 mmol/L Normal 22-32 Anion Gap 7 mmol/L Normal 2-11 Glucose 83 mg/dL Normal 70-100 Blood Urea Nitrogen 8 mg/dL Normal 6-24 Creatinine 0.89 mg/dL Normal 0.51-0.95 BUN/Creatinine Ratio 9.0 Normal 8-20 Calcium 8.8 mg/dL Normal 8.6-10.3 Total Protein 6.8 g/dL Normal 6.4-8.9 Albumin 4.3 g/dL Normal 3.2-5.2 Globulin 2.5 g/dL Normal 2-4 Albumin/Globulin Ratio 1.7 Normal 1-3 Total Bilirubin 0.50 mg/dL Normal 0.2-1.0 Alkaline Phosphatase 43 U/L Normal 34-104 Alt 8 U/L Normal 7-52 Ast 13 U/L Normal 13-39 Egfr Non- 73.0 >60 Egfr 88.4 >60 3 Laboratory test 06/11/2019 [facility] Magnesium 1.8 mg/dL Low 1.9-2.7 finding [address] [place] [address] [phone] Urinalysis 06/11/2019 [facility] Urine Color Yellow Profile [address] [place] [address] [phone] Urine Appearance Clear Urine Specific [place] 1.011 Normal 1.010-1.030 Urine pH 5.0 Normal 5-9 Urine Urobilinogen Negative Negative Urine Ketones Negative Negative Urine Protein Negative Negative Urine Leukocytes Negative Negative Urine Blood Negative Negative Urine Nitrite Negative Negative Urine Bilirubin Negative Negative Urine Glucose Negative Negative Laboratory test 05/16/2019 [facility] Prolactin 19.7 ng/mL Normal 1.0-25.0 finding [address] [place] [address] [phone] TSH (Thyroid Stim Horm) 1.36 mcIU/mL Normal 0.34-5.60 Magnesium 1.9 mg/dL Normal 1.9-2.7 1 Standard intensity warfarin therapeutic range: 2.0-3.0 High intensity warfarin therapeutic range: 2.5-3.5 2 UTS Severe Sepsis and Septic Shock Management Bundle Measure requires all lactic acids initially measuring >2.0 mmol/L be repeated. 3 Because ethnic data is not always readily available, this report includes an eGFR for both -Americans and non- Americans. The National Kidney Disease Education Program (NKDEP) does not endorse the use of the MDRD equation for patients that are not between the ages of 18 and 70, are , have extremes of body size, muscle mass, or nutritional status, or are non- or non-. According to the National Kidney Foundation, irrespective of diagnosis, the stage of the disease is based on the level of kidney function: Stage Description GFR(mL/min/1.73 m(2)) 1 Kidney damage with normal or decreased GFR 90 2 Kidney damage with mild decrease in GFR 60-89 3 Moderate decrease in GFR 30-59 4 Severe decrease in GFR 15-29 5 Kidney failure <15 (or dialysis) Procedures Date Code Description Status 07/10/2019 40910 EEG Recording Awake & Drowsy Completed 05/31/2019 12008 EEG Recording Awake & Drowsy Completed 06/24/2010 14790659 Mammogram Completed Medical Devices Description No Information Available Encounters Type Date Location Provider Dx Diagnosis Office Visit 06/28/2019 [facility] Leandro GagnonJANETH R56.9 Unspecified 3:00p convulsions G43.009 Migraine w/o aura, not intractable, w/o status migrainosus M54.2 Cervicalgia Office Visit 05/16/2019 2:40p 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 D35.2 Benign neoplasm of pituitary gland Z72.0 Tobacco use G50.1 Atypical facial pain Assessments Date Code Description Provider 07/21/2019 G43.009 Migraine without aura, not intractable, Leandro JANETH Gagnon without status migrainosus 07/21/2019 R55 Syncope and collapse Leandro Gagnon NP 07/21/2019 F07.81 Postconcussional syndrome Leandro Gagnon NP 07/19/2019 S46.011D Strain of muscle(s) and tendon(s) of the Damon Cuevas MD rotator cuff of right shoulder, subsequent encounter 07/19/2019 G56.01 Carpal tunnel syndrome, right upper limb Damon Cuevas MD 07/19/2019 G56.21 Lesion of ulnar nerve, right upper limb Damon Cuevas MD 07/10/2019 R56.9 Unspecified convulsions Kamaljit Florentino M.D. 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 05/16/2019 D35.2 Benign neoplasm of pituitary gland Maritza Del Cid M.D. 05/16/2019 Z72.0 Tobacco use Maritza Del Cid M.D. 05/16/2019 G50.1 Atypical facial pain Maritza Del Cid M.D. Plan of Treatment Future Appointment(s):09/01/2019 11:30 am - Leandro Gagnon NP at [facility]/24/2019 3:00 pm - Giana Arreola M.D. at [facility]9/06/2019 2:00 pm - Adal Mendieta MD at [facility]07/21/2019 - Leandro Gagnon, JANETHG43.009 Migraine without aura, not intractable, without status migrainosusNew Medication:Amitriptyline HCL 10 mg - take one tab po at hs for one wk, take 2 tabs at hs for one wk, take 3 tabs at hs for one wk, take 4 tabs at hsAmitriptyline HCL 10 mg - take one tab po at hs for one wk, take 2 tabs at hs for one wk, take 3 tabs at hs for one wk , take 4 tabs at hsFollow up:1-2 [id number] Syncope and collapseReferral:Milton Cai MD, Cardiovsclr UurdbgoQ69.81 Postconcussional syndrome Functional Status Description No Information Available Mental Status Description No Information Available Referrals Refer to Dr Reason for Referral Status Appt Date Milton Cai MD Previous patient; describes syncopal events, Created 00 lightheadedness, dizziness [address] [place] [address] [phone] Adal Mendieta MD Patient Notified 09/06/[address] [place] [address] [phone] Nelson Schmid M.D. Sent 06/28/[address] [place] [address] [place] [address] [phone]
--- OUTSIDE RECORDS SUMMARY | 2019-07-29 11:36 | XMS REPORT | Continuity of Care Document ---
:1985 External Reference #:[id number] Author Name WENDI Qureshi (transmitted by agent of provider Theron Rader) Address [address] [place] [id number] Care Team Providers Name Role Phone Destin Mayer M.D. - Family Medicine Care Team Information Automatic Buffer Jimmy Becker DO - Interventional Care Team Information Automatic Buffer Pain Medicine [facility] - Sleep Disorder Care Team Information Automatic Buffer Diagnostic Dwayne Fermin MD - Orthopaedic Care Team Information Automatic Buffer Surgery Milton Moreno MD - Otolaryngology Care Team Information Automatic Buffer [phone] Mars Snyder MD - Interventional Care Team Information Automatic Buffer Pain Medicine Belgica Cueto MD - Endocrinology, Care Team Information Automatic Buffer Diabetes & Metabolism Kamaljit Soria M.D. - Neurological Care Team Information Automatic Buffer Surgery Rosa Torres M.D. - Family Medicine Care Team Information Automatic Buffer Adal Mendieta MD - Endocrinology, Care Team Information Automatic Buffer Diabetes & Metabolism Nelson Schmid M.D. - Neurology Care Team Information Automatic Buffer Problems Active Problems Provider Date Congenital spondylolysis [...] (10 or fewer cigarettes/day) Smoking Status Reviewed: 07/24/19 Light tobacco smoker (10 or fewer cigarettes/day) [...] Medications SIG Qnty Indications Ordering Date Provider Prednisone use as directed 1units Giana Arreola, 07/24/2019 5mg (21) MRonaDRona TBPK Amitriptyline HCL take 4 tabs by 120tabs G43.009 Kamaljit Mccoy 07/21/2019 mouth at bedtime Tima Florentino 10mg Tablets Sumatriptan take 1 tablet by 12tabs G43.909 Kamaljit Mccoy 03/24/2018 Succinate mouth at onset of Tima Florentino 100mg headache. may Tablets repeat after 2 hours as needed needs appointment Acetaminophen 2 tab 3 times 90tabs M54.5 Christoval 12/16/2017 500mg daily as needed Tima Rocha Tablets Benadryl Allergy 1-2 tabs PO prn 14tabs Other Ordering 06/22/2017 25mg Provider Tablets Ibuprofen 1 tab three times 30tabs Other Ordering 06/22/2017 600mg a day prn pain Provider Tablets Walker/Adult/Folding dx: h/o vertebral 1units M54.5 Leatha Jenkins, 2012 fracture, kyphosis M.D. [facility] E888.9 Clindamycin HCL 1 tab by mouth three times a Unknown 300mg Capsules day for 5 days Tizanidine HCL take 1 tablet by mouth every Unknown 4mg Tablets 8 hours as needed Omeprazole 1 by mouth every day Unknown 40mg Capsules DR History Medications Amitriptyline HCL take one tab 120tabs G43.009 Kamaljit Florentino, 2019 - 10mg po at hs for M.D. 07/24/2019 Tablets one wk, take 2 tabs at hs for one wk, take 3 tabs at hs for one wk, take 4 tabs at hs Meloxicam 1 by mouth 20tabs G50.1 Maritza Del Cid, 05/16/2019 - 15mg Tablets every day M.D. 06/27/2019 Medications Administered in Office Medication SIG Qnty Indications Ordering Provider Date Triamcinolone (Kenalog) Jourdan Workman MD 02/23/2017 Injection Immunizations CPT Code Status Date Vaccine Lot # [id number] Given 05/04/2013 Flu Vaccine NOS [id number] Given 10/27/2012 Tdap - Tetanus/Diptheria/Acellular Pertussis [id number] Vital Signs Date Vital Result Comment 07/24/2019 3:45pm Height 70 inches 5'10" Weight 192.00 lb Heart Rate 74 /min BP Systolic 136 mmHg BP Diastolic 76 mmHg Respiratory Rate 18 /min Body Temperature 98.2 F Pain Level 6 BMI (Body Mass Index) 27.5 kg/m2 07/21/2019 10:56am Height 70 inches 5'10" Weight 193.25 lb Heart Rate 72 /min BP Systolic Sitting 118 mmHg BP Diastolic Sitting 78 mmHg Respiratory Rate 16 /min BMI (Body Mass Index) 27.7 kg/m2 Results Test Acquired Date Facility Test Result H/L Range Note Inr/Protime 06/11/2019 [facility] Inr 1.06 Normal 0.82-1.[address] [place] [id number] [phone] CBC Auto 06/11/2019 [facility] White Blood 9.6 10^3/uL Normal 3.5-10.8 Diff 101 [facility] [place] [address] [phone] Red Blood Count 4.17 10^6/uL Normal 3.70-4.87 [...] Blood Cells % 0.0 Laboratory test 06/11/2019 [facility] Lactic Acid 0.9 mmol/L Normal 0.5-2.0 2 finding [address] [place] [address] [phone] Comp Metabolic 06/11/2019 [facility] Sodium 134 mmol/L Low 135 -145 Panel [address] [place] [address] [phone] Potassium 3.5 mmol/L Normal 3.5-5.0 Chloride 102 [...] Egfr 88.4 >60 3 Laboratory test 06/11/2019 [facility] Magnesium 1.8 mg/dL Low 1.9-2.7 finding [address] [place] [address] [phone] Urinalysis 06/11/2019 [facility] Urine Color Yellow Profile [address] [place] [address] [phone] Urine Appearance Clear Urine Specific [place] 1.011 Normal 1.010-1.030 Urine pH 5.0 Normal 5-9 Urine Urobilinogen Negative Negative Urine Ketones Negative Negative Urine Protein Negative Negative Urine Leukocytes Negative Negative Urine Blood Negative Negative Urine Nitrite Negative Negative Urine Bilirubin Negative Negative Urine Glucose Negative Negative Laboratory test 05/16/2019 [facility] Prolactin 19.7 ng/mL Normal 1.0-25.0 finding [address] [place] [address] [phone] TSH (Thyroid Stim Horm) 1.36 mcIU/mL Normal 0.34-5.60 Magnesium 1.9 mg/dL Normal 1.9-2.7 1 Standard intensity warfarin therapeutic range: 2.0-3.0 High intensity warfarin therapeutic range: 2.5-3.5 2 [facility] Severe Sepsis and Septic Shock Management Bundle [...] (or dialysis) Procedures Date Code Description Status 07/24/2019 24323 Inject/Drain Joint/Bursa Major W/O US Completed 07/10/2019 18912 EEG Recording Awake & Drowsy Completed 05/31/2019 33797 EEG Recording Awake & Drowsy Completed 06/24/2010 [id number] Mammogram Completed Medical Devices Description No Information Available Encounters Type Date Location Provider Dx Diagnosis Office Visit 06/28/2019 [facility] Leandro Gagnon NP R56.9 Unspecified 3:00p convulsions G43.009 Migraine w/o aura, not intractable, w/o status migrainosus M54.2 Cervicalgia 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 D35.2 Benign neoplasm of pituitary gland Z72.0 Tobacco use G50.1 Atypical facial pain Assessments Date Code Description Provider 07/24/2019 M25.511 Pain in right shoulder Tory Bitting, RPA-C 07/24/2019 S46.011A Strain of muscle(s) and tendon(s) of the Tory Weathers , RPA-C rotator cuff of right shoulder, initial encounter 07/21/2019 G43.009 Migraine without aura, not intractable, Leandro Gagnon NP without status migrainosus 07/21/2019 R55 Syncope and [...] Florentino M.D. 06/28/2019 R56.9 Unspecified convulsions Leandro Gagnon NP 06/28/2019 G43.009 Migraine without aura, not intractable, Leandro Gagnon NP without status migrainosus 06/28/2019 M54.2 Cervicalgia Leandro Gagnon NP 05/31/2019 R56.9 Unspecified convulsions Law Herrera MD 05/16/2019 G40.89 Other seizures Maritza Del Cid M.D. 05/16/2019 D35.2 Benign neoplasm of pituitary gland Maritza Del Cid M.D. 05/16/2019 Z72.0 Tobacco use Maritza Del Cid M.D. 05/16/2019 G50.1 Atypical facial pain Maritza Del Cid M.D. Plan of Treatment Future Appointment(s):09/04/2019 11:15 am - Giana Arreola M.D. at [facility] at Hcdsbg6508/22/2019 1:15 pm - Damon Cuevas MD at [facility] at Fbnmra6609/01/2019 11:30 am - Leandro Gagnon NP at [facility] Ighfem3409/06/2019 2:00 pm - Adal Mendieta MD at [facility]07/24/2019 - Tory Weathers, [facility]-CM25.511 Pain in right shoulderNew Therapy:Physical TherapyFollow up:Follow up: 6 ksxaaR37.011A Strain of muscle(s) and tendon(s) of the rotator cuff of right shoulder, initial encounter Functional Status Description No Information Available Mental Status Description No Information Available Referrals Refer to Dr Reason for Referral Status Appt Date Milton Cai MD Previous patient; describes syncopal events, Created lightheadedness, dizziness [address] [place] [address] [phone] Adal Mendieta MD Patient Notified 09/06/[address] [place] [address] [phone] Nelson Schmid M.D. Sent 06/28/2019 [address] [facility] [place] [address] [place] [address] [phone]
--- OUTSIDE RECORDS SUMMARY | 2019-07-29 11:36 | XMS REPORT | Continuity of Care Document ---
:1985 External Reference #:[id number] Author Name Damon Cuevas MD (transmitted by agent of provider Marycruz Fuller) Address [address] [place] [address] Care Team Providers Name Role Phone Destin Mayer M.D. - Family Medicine Care Team Information Neurobiologist Jimmy Becker DO - Interventional Care Team Information Neurobiologist [phone] Pain Medicine [facility] - Sleep Disorder Care Team Information Neurobiologist Diagnostic Dwayne Fermin MD - Orthopaedic Care Team Information Neurobiologist [phone] Surgery Milton Moreno MD - Otolaryngology Care Team Information Neurobiologist Mars Snyder MD - Interventional Care Team Information Neurobiologist Pain Medicine Belgica Cueto MD - Endocrinology, Care Team Information Neurobiologist [phone] Diabetes & Metabolism Kamaljit Soria M.D. - Neurological Care Team Information Neurobiologist Surgery Rosa Torres M.D. - Family Medicine Care Team Information Neurobiologist Adal Mendieta MD - Endocrinology, Care Team Information Neurobiologist Diabetes & Metabolism Nelson Schmid M.D. - Neurology Care Team Information Neurobiologist [phone] Problems Active Problems Provider Date Congenital spondylolysis [...] (10 or fewer cigarettes/day) Smoking Status Reviewed: 07/19/19 Light tobacco smoker (10 or fewer cigarettes/day) [...] Medications SIG Qnty Indications Ordering Date Provider Sumatriptan Succinate take 1 tablet by 9tabs G43.909 Maritza 03/24/2018 mouth at onset of Tima Del [...] M54.5 Leatha Jenkins, 2012 fracture, kyphosis [facility]os [facility] E888.9 Clindamycin HCL 1 tab by mouth three times a Unknown 300mg Capsules day for 5 days History Medications Meloxicam 1 by mouth 20tabs G50.1 Maritza Del Cid, 05/16/2019 - 15mg every day M.D. 06/27/2019 Tablets Medications Administered in Office Medication SIG Qnty Indications Ordering Provider Date Triamcinolone (Kenalog) Jourdan Workman MD 02/23/2017 Injection Immunizations CPT Code Status Date Vaccine Lot # [id number] Given 05/04/2013 Flu Vaccine NOS [id number] Given 10/27/2012 Tdap - Tetanus/Diptheria/Acellular Pertussis [id number] Vital Signs Date Vital Result Comment 07/19/2019 11:10am Height 70 inches 5'10" Heart Rate 104 /min BP Systolic 140 mmHg BP Diastolic 82 mmHg Respiratory Rate 18 /min Body Temperature 98.0 F Pain Level 9 06/28/2019 3:00pm Height 70 inches 5'10" Weight 197.00 lb Heart Rate 72 /min BP Systolic Sitting 110 mmHg BP Diastolic Sitting 80 mmHg Respiratory Rate 16 /min BMI (Body Mass Index) 28.3 kg/m2 Results Test Acquired Date Facility Test Result H/L Range Note Inr/Protime 06/11/2019 [facility] Inr 1.06 Normal 0.82-1.[address] [place] [address] [phone] CBC Auto 06/11/2019 [facility] White Blood 9.6 10^3/uL Normal 3.5-10.[address] [place] [address] [phone] Red Blood Count 4.17 10^6/uL Normal 3.70-4.87 [...] Blood Cells % 0.0 Laboratory test 06/11/2019 [facility] Lactic Acid 0.9 mmol/L Normal 0.5-2.0 2 finding [address] [place] [address] [phone] Comp Metabolic 06/11/2019 [facility] Sodium 134 mmol/L Low 135 -[address] [place] [address] [phone] Potassium 3.5 mmol/L Normal 3.5-5.0 Chloride 102 [...] Egfr 88.4 >60 3 Laboratory test 06/11/2019 [facility] Magnesium 1.8 mg/dL Low 1.9-2.7 finding [address] [place] [address] [phone] Urinalysis 06/11/2019 [facility] Urine Color Yellow Profile [address] [place] [address] [phone] Urine Appearance Clear Urine Specific [place] 1.011 Normal 1.010-1.030 Urine pH 5.0 Normal 5-9 Urine Urobilinogen Negative Negative Urine Ketones Negative Negative Urine Protein Negative Negative Urine Leukocytes Negative Negative Urine Blood Negative Negative Urine Nitrite Negative Negative Urine Bilirubin Negative Negative Urine Glucose Negative Negative Laboratory test 05/16/2019 [facility] Prolactin 19.7 ng/mL Normal 1.0-25.[address] [place] [address] [phone] TSH (Thyroid Stim Horm) 1.36 mcIU/mL Normal 0.34-5.60 Magnesium 1.9 mg/dL Normal 1.9-2.7 1 Standard intensity warfarin therapeutic range: 2.0-3.0 High intensity warfarin therapeutic range: 2.5-3.5 2 [facility] Severe Sepsis and Septic Shock Management Bundle [...] dialysis) Procedures Date Code Description Status 07/10/2019 31617 EEG Recording Awake & Drowsy Completed 05/31/2019 23393 EEG Recording Awake & Drowsy Completed 06/24/2010 [id number] Mammogram Completed Medical Devices Description No Information Available Encounters Type Date Location Provider Dx Diagnosis Office Visit 06/28/2019 [facility] Leandro Gagnon NP R56.9 Unspecified 3:00p convulsions G43.009 Migraine w/o aura, not intractable, w/o status migrainosus M54.2 Cervicalgia Office Visit 05/16/2019 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 D35.2 Benign neoplasm of pituitary gland Z72.0 Tobacco use G50.1 Atypical facial pain Assessments Date Code Description Provider 07/19/2019 S46.011D Strain of muscle(s) and tendon(s) [...] Del Cid M.D. Plan of Treatment Future Appointment(s):07/24/2019 3:00 pm - Giana Arreola M.D. at [facility] at Wwoyxq6507/20/2019 2:30 pm - Hyun Gaston MD at [facility] Internal Medicine - [facility]07/21/2019 11:00 am - Leandro Gagnon NP at [facility] Yleqyv0209/06/2019 2:00 pm - Adal Mendieta MD at [facility]07/19/2019 - Damon Cuevas MDS46.011D Strain of muscle(s) and tendon(s) of the rotator cuff of right shoulder, subsequent encounterNew Orders:EMG w/Nerve Conduct Study, Upper, Ordered: 07/19/19New Therapy:Physical LofmrqwR74.01 Carpal tunnel syndrome, right upper limbG56.21 Lesion of ulnar nerve, right upper limbFollow up:Follow up: After EMG Functional Status Description No Information Available Mental Status Description No Information Available Referrals Refer to Reason for Referral Status Appt Date Adal Mendieta MD Patient Notified 09/06/[address] [place] [address] [phone] Nelson Schmid M.D. Sent 06/28/2019 [address] [facility] [place] [address] [place] [address] [phone]
--- OUTSIDE RECORDS SUMMARY | 2019-07-29 11:36 | XMS REPORT | Continuity of Care Document ---
:1985 External Reference #:[id number] Author Name Damon Cuevas MD (transmitted by agent of provider Marycruz Fuller) Address [address] [place] [address] Care Team Providers Name Role Phone Destin Mayer M.D. - Family Medicine Care Team Information Ship'S Pilot Jimmy Becker DO - Interventional Care Team Information Ship'S Pilot [phone] Pain Medicine [facility] Sleep Clinic - Sleep Disorder Care Team Information Ship'S Pilot Diagnostic Dwayne Fermin MD - Orthopaedic Care Team Information Ship[employer] Pilot [phone] Surgery Milton Moreno MD - Otolaryngology Care Team Information Ship'[employer] Pilot Mars Snyder MD - Interventional Care Team Information Ship'[employer] Pilot Pain Medicine Belgica Cueto MD - Endocrinology, Care Team Information [employer] Diabetes & Metabolism Kamaljit Soria M.D. - Neurological Care Team Information [employer] Surgery Rosa Torres M.D. - Family Medicine Care Team Information [employer] [phone] Adal Mendieta MD - Endocrinology, Care Team Information [employer] Diabetes & Metabolism Nelson Schmid M.D. - Neurology Care Team Information [employer] [phone] Problems Active Problems Provider Date Congenital spondylolysis [...] 12/24/2017 subsequent encounter Gastroesophageal reflux disease Hernandez Rocah M.D. Onset: 01/26/2018 Tobacco user Hernandez Rocha [...] M54.5 Leatha Jenkins, 2012 fracture, kyphosis [facility] E888.9 Clindamycin HCL 1 tab by mouth [...] # [id number] Given 05/04/2013 Flu Vaccine NOS [id number] Given 10/27/2012 Tdap - Tetanus/Diptheria/Acellular Pertussis [id number] Vital Signs Date Vital Result Comment 07/19/2019 [...] Test Result H/L Range Note Inr/Protime 06/11/2019 [facility] Inr 1.06 Normal 0.82-1.[address] [place] [address] [phone] CBC Auto 06/11/2019 [facility] White Blood 9.6 10^3/uL Normal 3.5-10.[address] [place] [address] [phone] Red Blood Count 4.17 10^6/uL Normal 3.70-4.87 [...] Blood Cells % 0.0 Laboratory test 06/11/2019 [facility] Lactic Acid 0.9 mmol/L Normal 0.5-2.0 2 finding [address] [place] [address] [phone] Comp Metabolic 06/11/2019 [facility] Sodium 134 mmol/L Low 135 -[address] [place] [address] [phone] Potassium 3.5 mmol/L Normal 3.5-5.0 Chloride 102 [...] Egfr 88.4 >60 3 Laboratory test 06/11/2019 [facility] Magnesium 1.8 mg/dL Low 1.9-2.7 finding [address] [place] [address] [phone] Urinalysis 06/11/2019 [facility] Urine Color Yellow Profile [address] [place] [address] [phone] Urine Appearance Clear Urine Specific [place] 1.011 Normal 1.010-1.030 Urine pH 5.0 Normal 5-9 Urine Urobilinogen Negative Negative Urine Ketones Negative Negative Urine Protein Negative Negative Urine Leukocytes Negative Negative Urine Blood Negative Negative Urine Nitrite Negative Negative Urine Bilirubin Negative Negative Urine Glucose Negative Negative Laboratory test 05/16/2019 [facility] Prolactin 19.7 ng/mL Normal 1.0-25.[address] [place] [address] [phone] TSH (Thyroid Stim Horm) 1.36 mcIU/mL Normal 0.34-5.60 Magnesium 1.9 mg/dL Normal 1.9-2.7 1 Standard intensity warfarin therapeutic range: 2.0-3.0 High intensity warfarin therapeutic range: 2.5-3.5 2 [facility] Severe Sepsis and Septic Shock Management Bundle [...] dialysis) Procedures Date Code Description Status 07/10/2019 18697 EEG Recording Awake & Drowsy Completed 05/31/2019 78532 EEG Recording Awake & Drowsy Completed 06/24/2010 [id number] Mammogram Completed Medical Devices Description No Information Available Encounters Type Date Location Provider Dx Diagnosis Office Visit 06/28/2019 [facility] Leandro Gagnon NP R56.9 Unspecified 3:00p convulsions G43.009 Migraine w/o aura, not intractable, w/o status migrainosus M54.2 Cervicalgia Office Visit 05/16/2019 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 at [facility] at Tzfcfa8607/20/2019 2:30 pm - Hyun Gaston MD at [facility] Internal Medicine - [facility]07/21/2019 11:00 am - Leandro Gagnon NP at [facility] Nhxpzv5309/06/2019 2:00 pm - Adal Mendieta MD at [facility]07/19/2019 - Damon Cuevas MDS46.011D Strain of muscle(s) and tendon(s) of the rotator cuff of right shoulder, subsequent encounterNew Orders:EMG w/Nerve Conduct Study, Upper, Ordered: 07/19/19New Therapy:Physical GhutbxpT95.01 Carpal tunnel syndrome, right upper limbG56.21 Lesion of ulnar nerve, right upper limbFollow up:Follow up: After EMG Functional Status Description No Information Available Mental Status Description No Information Available Referrals Refer to Reason for Referral Status Appt Date Adal Mendieta MD Patient Notified 09/06/[address] [place] [address] [phone] Nelson Schmid M.D. Sent 06/28/2019 [address] [facility] [place] [address] [place] [address] [phone]
--- OUTSIDE RECORDS SUMMARY | 2019-07-29 11:36 | XMS REPORT | Continuity of Care Document ---
:1985 External Reference #:[id number] Author Name Leandro Gagnon NP (transmitted by agent of provider Ashleigh Galicia) Address [address] [facility], [place] [address] Care Team Providers Name Role Phone Destin Mayer M.D. - Family Medicine Care Team Information Steam Box Operator Jimmy Becker DO - Interventional Care Team Information Steam Box Operator Pain Medicine [facility] - Sleep Disorder Care Team Information Steam Box Operator [phone] Diagnostic Dwayne Fermin MD - Orthopaedic Care Team Information Steam Box Operator Surgery Milton Moreno MD - Otolaryngology Care Team Information Steam Box Operator Mars Snyder MD - Interventional Care Team Information Steam Box Operator Pain Medicine Belgica Cueto MD - Endocrinology, Care Team Information Steam Box Operator Diabetes & Metabolism Kamaljit Soria M.D. - Neurological Care Team Information Steam Box Operator [phone] Surgery Rosa Torres M.D. - Family Medicine Care Team Information Steam Box Operator Adal Mendieta MD - Endocrinology, Care Team Information Steam Box Operator [phone] Diabetes & Metabolism Nelson Schmid M.D. - Neurology Care Team Information Steam Box Operator [phone] Problems Active Problems Provider Date Congenital spondylolysis [...] (10 or fewer cigarettes/day) Smoking Status Reviewed: 06/28/19 Light tobacco smoker (10 or fewer cigarettes/day) [...] M54.5 Leatha Jenkins, 2012 fracture, kyphosis MCarlos [facility] C[facility] E888.9 Clindamycin HCL 1 tab by mouth [...] # [id number] Given 05/04/2013 Flu Vaccine NOS [id number] Given 10/27/2012 Tdap - Tetanus/Diptheria/Acellular Pertussis [id number] Vital Signs Date Vital Result Comment 06/28/2019 3:00pm Height 70 inches 5'10" Weight 197.00 lb Heart Rate 72 /min BP Systolic Sitting 110 mmHg BP Diastolic Sitting 80 mmHg Respiratory Rate 16 /min BMI (Body Mass Index) 28.3 kg/m2 05/16/2019 2:45pm Height 70 inches 5'10" Weight 190.00 lb Heart Rate 74 /min BP Systolic 122 mmHg BP Diastolic 84 mmHg O2 % BldC Oximetry 99 % BMI (Body Mass Index) 27.3 kg/m2 Results Test Acquired Date Facility Test Result H/L Range Note Inr/Protime 06/11/2019 [facility] Inr 1.06 Normal 0.82-1.[address] [place] [address] [phone] CBC Auto 06/11/2019 [facility] White Blood 9.6 10^3/uL Normal 3.5-10.[address] [place] [address] [phone] Red Blood Count 4.17 10^6/uL Normal 3.70-4.87 [...] Blood Cells % 0.0 Laboratory test 06/11/2019 [facility] Lactic Acid 0.9 mmol/L Normal 0.5-2.0 [address] [place] [address] [phone] Comp Metabolic 06/11/2019 [facility] Sodium 134 mmol/L Low 135 -[address] [place] [address] [phone] Potassium 3.5 mmol/L Normal 3.5-5.0 Chloride 102 [...] Egfr 88.4 >60 3 Laboratory test 06/11/2019 [facility] Magnesium 1.8 mg/dL Low 1.9-2.7 finding [address] [place] [address] [phone] Urinalysis 06/11/2019 [facility] Urine Color Yellow Profile [address] [place] [address] [phone] Urine Appearance Clear Urine Specific [place] 1.011 Normal 1.010-1.030 Urine pH 5.0 Normal 5-9 Urine Urobilinogen Negative Negative Urine Ketones Negative Negative Urine Protein Negative Negative Urine Leukocytes Negative Negative Urine Blood Negative Negative Urine Nitrite Negative Negative Urine Bilirubin Negative Negative Urine Glucose Negative Negative Laboratory test 05/16/2019 [facility] Prolactin 19.7 ng/mL Normal 1.0-25.[address] [place] [address] [phone] TSH (Thyroid Stim Horm) 1.36 mcIU/mL Normal 0.34-5.60 Magnesium 1.9 mg/dL Normal 1.9-2.7 1 Standard intensity warfarin therapeutic range: 2.0-3.0 High intensity warfarin therapeutic range: 2.5-3.5 2 [facility] Severe Sepsis and Septic Shock Management Bundle [...] (or dialysis) Procedures Date Code Description Status 05/31/2019 89759 EEG Recording Awake & Drowsy Completed 06/24/2010 [id number] Mammogram Completed Medical Devices Description No Information Available Encounters Type Date Location Provider Dx Diagnosis Office Visit 05/16/2019 Vessel Manager Internal Maritzabubba Del Cid, G40.89 Other seizures 2:40p Medicine - Lorraine Alfred D35.2 Benign neoplasm of pituitary gland Z72.0 Tobacco use G50.1 Atypical facial pain Assessments Date Code Description Provider 06/28/2019 R56.9 Unspecified convulsions Leandro Gagnon NP 06/28/2019 G43.009 Migraine without aura, not intractable, Leandro Gagnon, JANETH without status migrainosus 06/28/2019 M54.2 Cervicalgia Leandro Gagnon NP 05/31/2019 R56.9 Unspecified convulsions Law Herrera MD 05/16/2019 G40.89 Other seizures Maritza Del Cid M.D. 05/16/2019 D35.2 Benign neoplasm of pituitary gland Maritza Del Cid M.D. 05/16/2019 Z72.0 Tobacco use Maritza Del Cid M.D. 05/16/2019 G50.1 Atypical facial pain Maritza Del Cid M.D. Plan of Treatment Future Appointment(s):09/06/2019 2:00 pm - Adal Mendieta MD at [facility]07/10/2019 10:00 am - Maritza Del Cid M.D. at [facility] - [facility]06/28/2019 - Leandro Gagnon, NPR56.9 Unspecified convulsionsNew Orders:EEG, Routine, Ordered: 06/28/19Follow up:3-4 etaboP96.009 Migraine without aura, not intractable, without status mveqekhvgflV67.2 CervicalgiaNew Xrays:MRI Cervical Spine Wo, Ordered: 06/28/19 Functional Status Description No Information Available Mental Status Description No Information Available Referrals Refer to Reason for Referral Status Appt Date Adal Mendieta MD Patient Notified 09/06/[address] [place] [address] [phone] Nelson Schmid M.D. Sent 06/28/2019 [facility] [place] [address] [place] [address] [phone]
[2019-07-29] MEDS ORDERED: Lidocaine 1% MPF ** 5 ML VIAL INJ ONE (12:07)
--- NOTE | 2019-07-29 12:16 | ED ---
Upper Extremity Pain - HPI Summary HPI Summary: Pt is a 34 y/o F presenting to the ED with a chief complaint of R shoulder pain. Shes had multiple surgeries on her R arm that have healed well, but she started having syncope with convulsions, and her orthopedic surgeon wants to do another ulnar nerve surgery. Shes currently in physical therapy, but her R arm has had incredible pain. The pain shoots from her neck down her entire arm. She also reports numbness, tingling, muscle spasms, and decreased ROM. - History of Current Complaint Chief Complaint: EDShoulderClaReynold Stated Complaint: RT ARM INJURY PER PT Time Seen by Provider: 07/29/19 11:41 Hx Obtained From: Patient Hx Last Menstrual Period: 05/08/18 Mechanism Of Injury: Unknown Onset/Duration: Started Weeks Ago, Still Present Timing: Constant, Lasting Weeks Severity Initially: Moderate Severity Currently: Severe Pain Location: Shoulder Aggravating Factor(s): Movement Alleviating Factor(s): Nothing Associated Signs & Symptoms: Positive: Numbness/Tingling, Neck Pain - Allergies/Home Medications Allergies/Adverse Reactions: Allergies Allergy/AdvReac Type Severity Reaction Status Date / Time propoxyphene Allergy Intermediate skin rash Verified 07/29/19 11:28 [From Darvocet-N] cephalexin [From Keflex] AdvReac Severe Unknown Verified 07/29/19 11:28 Reaction Details clarithromycin [From Biaxin] AdvReac Severe Nausea And Verified 07/29/19 11:28 Vomiting cyclobenzaprine AdvReac Severe See Comment Verified 07/29/19 11:28 [From Flexeril] divalproex sodium AdvReac Severe Abdominal Verified 07/29/19 11:28 [From Depakote] Pain doxycycline AdvReac Severe Rash Verified 07/29/19 11:28 naproxen AdvReac Severe Abdominal Verified 07/29/19 11:28 Pain Penicillins AdvReac Severe Hives/Diff. Verified 07/29/19 11:28 Breathing/I tching trimethoprim [From Bactrim] AdvReac Severe Nausea Verified 07/29/19 11:28 metaxalone [From Skelaxin] AdvReac Intermediate See Comment Verified 07/29/19 11 :28 morphine AdvReac Intermediate Swelling Verified 07/29/19 11:54 Of Face,Lips,& Throat miracle whip AdvReac Severe n/v, Uncoded 07/29/19 11:28 itchy. hives ragu spaghetti sauce AdvReac Severe n/v, Uncoded 07/29/19 11:28 hives, itchiness Home Medications: Home Medications Amitriptyline TAB* [Elavil TAB*] 40 mg PO BEDTIME 07/29/19 [History Confirmed ] Ibuprofen TAB* [Advil TAB*] 800 mg PO Q6H PRN 07/29/19 [History Confirmed ] Meloxicam [Mobic] 15 mg PO DAILY 07/29/19 [History Confirmed 07/29/19] SUMAtriptan succinate [Imitrex] 100 mg PO Q2H PRN MDD 4 tabs 07/29/19 [History Confirmed 07/29/19] tiZANidine TAB* [Zanaflex TAB*] 2 mg PO BID 07/29/19 [History Confirmed 07/29/19 ] PMH/Surg Hx/FS Hx/Imm Hx Previously Healthy: Yes Endocrine/Hematology History: Denies: Hx Anticoagulant Therapy, Hx Blood Disorders, Hx Diabetes Cardiovascular History: Reports: Hx Syncope, Other Cardiovascular Problems/ Disorders - low blood pressure Denies: Hx Hypertension, Hx Pacemaker/ICD Respiratory History: Reports: Other Respiratory Problems/Disorders - insomnia Denies: Hx Asthma, Hx Chronic Obstructive Pulmonary Disease (COPD) GI History: Reports: Hx Gastroesophageal Reflux Disease - on med, Hx Irritable Bowel, Hx Ulcer - stomach ulcers and an ulcer in esophagus, Other GI Disorders - DIVERTICULITIS-? History: Reports: Other Problems/Disorders - polycystic ovarian syndrome Denies: Hx Dialysis, Hx Renal Disease Musculoskeletal History: Reports: Hx Arthritis, Hx Back Problems, Hx Orthopedic Injury, Hx Osteoporosis - spondylolisthesis, Hx Tendonitis, Other Musculoskeletal History - reports multiple fractures in past, chronic right arm pain and injury/ulnar Denies: Hx Rheumatoid Arthritis Sensory History: Denies: Hx Cataracts, Hx Contacts or Glasses, Hx Legally Blind, Hx Deafness, Hx Hearing Aid Opthamlomology History: Denies: Hx Cataracts, Hx Contacts or Glasses, Hx Legally Blind Neurological History: Reports: Hx Migraine - on med prn, Hx Nerve Disease - fibromyalgia, Hx Spinal Cord Injury - fx of L4, L5 S1, Other Neuro Impairments/ Disorders - reports she has a pituitary adenoma Psychiatric History: Reports: Hx Anxiety - NO MEDICATION FOR AT THIS TIME, Hx Depression - NO MEDICATION FOR AT THIS TIME, Hx Post Traumatic Stress Disorder, Hx Community Mental Health Tx Denies: Hx Attention Deficit Hyperactivity Disorder, Hx Eating Disorder, Hx Panic Disorder, Hx Inpatient Treatment, Hx Schizophrenia, Hx Bipolar Disorder, Hx Suicide Attempt, Hx of Violent Episodes Against Others, Hx Substance Abuse, Other Psychiatric Issues/Disorders - Cancer History Cancer Type, Location and Year: None reported Hx Chemotherapy: No - Surgical History Surgery Procedure, Year, and Place: Right wrist surgery/RIGHT ELBOW 05/17/17. 2017 RIGHT SHOULDER SURGERYx2. tonsillectomy 1989 [place]. right ovarian cyst removed 2006 [facility]. cholecyst[place] 2006 [facility]. D&C 2006 - [facility]. teeth extraction ( one in office and one at [facility] [place] ear biopsy - 2014 [facility] [place]. ENDOSCOPIES/COLONOSCOPIES Hx Anesthesia Reactions: No - Immunization History Date of Tetanus Vaccine: UTD Date of Influenza Vaccine: NO Infectious Disease History: No Infectious Disease History: Denies: Hx Clostridium Difficile, Hx Hepatitis, Hx Human Immunodeficiency Virus (HIV), Hx of Known/Suspected MRSA, Hx Shingles, Hx Tuberculosis, Hx Known/ Suspected VRE, Hx Known/Suspected VRSA, History Other Infectious Disease, Traveled Outside the in Last 30 Days - Family History Known Family History: Positive: Cardiac Disease - mom, Diabetes - Social History Alcohol Use: None Hx Substance Use: Yes - not currently Substance Use Type: Reports: Marijuana Substance Use Comment - Amount & Last Used: hx cannabis use Hx Tobacco Use: Yes Smoking Status (MU): Light Every Day Tobacco Smoker Type: Cigarettes Amount Used/How Often: 1/2 PPD Length of Time of Smoking/Using Tobacco: since 17yo Have You Smoked in the Last Year: Yes Review of Systems Positive: Arthralgia, Myalgia, Decreased ROM Positive: Weakness, Numbness All Other Systems Reviewed And Are Negative: Yes Physical Exam - Summary Physical Exam Summary: Constitutional: Well-developed, Well-nourished, Alert. (-) Distressed Skin: Warm, Dry HENT: Normocephalic; Atraumatic Eyes: Conjunctiva normal Neck: Musculoskeletal ROM normal neck. (-) JVD, (-) Stridor, (-) Tracheal deviation Cardio: Rhythm regular, rate normal, Heart sounds normal; Intact distal pulses; Radial pulses are 2+ and symmetric. (-) Murmur Pulmonary/Chest wall: Effort normal. (-) Respiratory distress, (-) Wheezes, (-) Rales Abd: Soft, (-) tenderness, (-) Distension, (-) Guarding, (-) Rebound Musculoskeletal: (-) Edema. Tendernes on the R trapezius, radial pulses 2+, able to range fully at wrist, limited solar process engineer strength, no proximal bony tenderness. Lymph: (-) Cervical adenopathy Neuro: Alert, Oriented x3 Psych: Mood and affect Normal Triage Information Reviewed: Yes Vital Signs On Initial Exam: Initial Vitals Temp Pulse Resp BP Pulse Ox 98.2 F 80 19 137/82 100 07/29/19 11:24 07/29/19 11:24 07/29/19 11:24 07/29/19 11:24 07/29/19 11:24 Vital Signs Reviewed: Yes Procedures - Procedure Summary Procedure Summary: 8ccs of Lidocaine given as a trigger point injection in the R trapezius. - Sedation Patient Received Moderate/Deep Sedation with Procedure: No Diagnostics - Vital Signs Vital Signs Temp Pulse Resp BP Pulse Ox 07/29/19 11:24 98.2 F 80 19 137/82 100 - Laboratory Lab Statement: Any lab studies that have been ordered have been reviewed, and results considered in the medical decision making process. Course/Dx - Course Course Of Treatment: Patient is here with recurrence of her chronic right arm pain. Patient was tenderness trapezius so a trigger point was attempted with no relief of symptoms. Patient has had good relief from tramadol the past and was started on tramadol. - Diagnoses Provider Diagnoses: Right arm pain Discharge ED - Sign-Out/Discharge Documenting (check all that apply): Patient Departure - Discharge Plan Condition: Stable Disposition: HOME Prescriptions: traMADol TAB* [Ultram*] 50 mg PO Q12H PRN #8 tab MDD 100 mg PRN Reason: Pain - Severe Patient Education Materials: Arm Pain (ED) Referrals: [facility] [Outside] Additional Instructions: Follow up with your orthopedic surgeon. Take your prescribed Tramadol if needed for your pain. Return to the emergency department with any new or worsening symptoms. - Billing Disposition and Condition Condition: STABLE Disposition: Home - Attestation Statements Document Initiated by Scribe: Yes Documenting Scribe: Carmen Larkin Provider For Whom Scribsilverio is Documenting (Include Credential): Rony Yu MD. Scribe Attestation: Carmen Trevizo, scribed for Rony Yu MD. on 07/29/19 at 2111. Scribe Documentation Reviewed: Yes Provider Attestation: The documentation as recorded by the Carmen whittaker accurately reflects the service I personally performed and the decisions made by me, Rony Yu MD. Status of Scribe Document: Viewed
[2019-07-29 12:37] VITALS: BP 115/96
== END 2019-07-29 12:36 | disposition home or self-care (01) ==
LOC: ED 11:21
DX: M79.601 Pain in right arm (principal); R20.0 Anesthesia of skin; R20.2 Paresthesia of skin; M54.2 Cervicalgia; M62.838 Other muscle spasm; K21.9 Gastro-esophageal reflux disease without esophagitis; G43.909 Migraine, unspecified, not intractable, without status migrainosus; Z88.1 Allergy status to other antibiotic agents; Z88.5 Allergy status to narcotic agent; Z88.0 Allergy status to penicillin; Z88.2 Allergy status to sulfonamides; Z88.8 Allergy status to other drugs, medicaments and biological substances; Z91.018 Allergy to other foods; F17.210 Nicotine dependence, cigarettes, uncomplicated
CPT/HCPCS: 99282

== ENCOUNTER 2019-08-07 13:50 | Emergency (ER) | payer OTHER ==
--- OUTSIDE RECORDS SUMMARY | 2019-08-07 14:00 | XMS REPORT | Continuity of Care Document ---
:1985 External Reference #:[id number] Author Name Giana Don M.D. (transmitted by agent of provider Theron Rader) Address [address] [place] [id number] Care Team Providers Name Role Phone Destin Mayer M.D. - Family Medicine Care Team Information Supervisor Fusing Room [phone] Jimmy Becker DO - Interventional Care Team Information Supervisor Fusing Room Pain Medicine [facility] - Sleep Disorder Care Team Information Supervisor Fusing Room Diagnostic Dwayne Fermin MD - Orthopaedic Care Team Information Supervisor Fusing Room Surgery Milton Moreno MD - Otolaryngology Care Team Information Supervisor Fusing Room [phone] Mars Snyder MD - Interventional Care Team Information Supervisor Fusing Room Pain Medicine Belgica Cueto MD - Endocrinology, Care Team Information Supervisor Fusing Room Diabetes & Metabolism Kamaljit Soria M.D. - Neurological Care Team Information Supervisor Fusing Room Surgery Rosa Torres M.D. - Family Medicine Care Team Information Supervisor Fusing Room Adal Mendieta MD - Endocrinology, Care Team Information Supervisor Fusing Room [phone] Diabetes & Metabolism eNlson Schmid M.D. - Neurology Care Team Information Supervisor Fusing Room [phone] Problems Active Problems Provider Date Congenital spondylolysis [...] (10 or fewer cigarettes/day) Smoking Status Reviewed: 08/07/19 Light tobacco smoker (10 or fewer cigarettes/day) [...] Provider Prednisone use as directed 1units Giana 07/24/2019 5mg (21) Tima Don TBPK Amitriptyline HCL take 4 tabs by [...] M54.5 Leatha Jenkins, 2012 fracture, kyphosis [place]. [facility] E888.9 Clindamycin HCL 1 tab by mouth [...] Medication SIG Qnty Indications Ordering Provider Date Records Fee Damon Cuevas MD 07/27/2019 Injection Triamcinolone (Kenalog) Jourdan Workman MD 02/23/2017 Injection Immunizations CPT Code Status Date Vaccine Lot # [id number] Given 05/04/2013 Flu Vaccine NOS [id number] Given 10/27/2012 Tdap - Tetanus/Diptheria/Acellular Pertussis [id number] Vital Signs Date Vital Result Comment 08/07/2019 1:05pm Height 69 inches 5'9" Weight 190.00 lb Heart Rate 110 /min Body Temperature 97.6 F O2 % BldC Oximetry 98 % BMI (Body Mass Index) 28.1 kg/m2 07/24/2019 3:45pm Height 70 inches 5'10" Weight 192.00 lb Heart Rate 74 /min BP Systolic 136 mmHg BP Diastolic 76 mmHg Respiratory Rate 18 /min Body Temperature 98.2 F Pain Level 6 BMI (Body Mass Index) 27.5 kg/m2 Results Test Acquired Date Facility Test Result H/L Range Note Inr/Protime 06/11/2019 [facility] Inr 1.06 Normal 0.82-1.[address] [place] [address] [phone] CBC Auto 06/11/2019 [facility] White Blood 9.6 10^3/uL Normal 3.5-10.[address] [place] [address] [phone] Red Blood Count 4.17 10^6/uL Normal 3.70-4.87 [...] Blood Cells % 0.0 Laboratory test 06/11/2019 [facility] Lactic Acid 0.9 mmol/L Normal 0.5-2.0 2 finding [address] [place] [address] [phone] Comp Metabolic 06/11/2019 [facility] Sodium 134 mmol/L Low 135 -145 Panel [address] [place] [address] [phone] Potassium 3.5 mmol/L Normal 3.5-5.0 Chloride 102 [...] Egfr 88.4 >60 3 Laboratory test 06/11/2019 [facility] Magnesium 1.8 mg/dL Low 1.9-2.7 finding [address] [place] [address] [phone] Urinalysis 06/11/2019 [facility] Urine Color Yellow Profile [address] [place] [address] [phone] Urine Appearance Clear Urine Specific [place] 1.011 Normal 1.010-1.030 Urine pH 5.0 Normal 5-9 Urine Urobilinogen Negative Negative Urine Ketones Negative Negative Urine Protein Negative Negative Urine Leukocytes Negative Negative Urine Blood Negative Negative Urine Nitrite Negative Negative Urine Bilirubin Negative Negative Urine Glucose Negative Negative Laboratory test 05/16/2019 [facility] Prolactin 19.7 ng/mL Normal 1.0-25.0 finding [address] [place] [address] [phone] TSH (Thyroid Stim Horm) 1.36 mcIU/mL Normal 0.34-5.60 Magnesium 1.9 mg/dL Normal 1.9-2.7 1 Standard intensity warfarin therapeutic range: 2.0-3.0 High intensity warfarin therapeutic range: 2.5-3.5 2 [facility] Severe Sepsis and Septic Shock Management [...] dialysis) Procedures Date Code Description Status 07/10/2019 89157 EEG Recording Awake & Drowsy Completed 05/31/2019 67980 EEG Recording Awake & Drowsy Completed 06/24/2010 [id number] Mammogram Completed Medical Devices Description No Information Available Encounters Type Date Location Provider Dx Diagnosis Office Visit 07/24/2019 [facility] Tory Weathers, M25.511 Pain in right 2:45p at [facility] shoulder S46.011A Strain of musc/tend the rotator cuff of right shoulder, init M75.41 Impingement syndrome of right shoulder Office Visit 06/28/2019 [facility] Leandro Gagnon, R56.9 Unspecified 3:00p Clinic DRILL OPERATOR PNEUMATIC convulsions G43.009 Migraine w/o aura, not intractable, w/o status migrainosus M54.2 Cervicalgia Office Visit 05/16/2019 2:40p Mri Supervisor Internal Maritza G40.89 Other seizures Medicine - Lorraine Del Cid M.D. D35.2 Benign neoplasm of pituitary gland Z72.0 Tobacco use G50.1 Atypical facial pain Assessments Date Code Description Provider 08/07/2019 M75.41 Impingement syndrome of right shoulder Giana Don M.D. 08/07/2019 S46.011A Strain of muscle(s) and tendon(s) of the Giana Don M.D. rotator cuff of right shoulder, initial encounter 07/27/2019 R55 Syncope and collapse Damon Cuevas MD 07/27/2019 M54.5 Low back pain Damon Cuevas MD 07/27/2019 R07.9 Chest pain, unspecified Damon Cuevas MD 07/24/2019 M25.511 Pain in right shoulder Tory Weathers RPA-C 07/24/2019 S46.011A Strain of muscle(s) and tendon(s) of the Tory Weathers RPA-C rotator cuff of right shoulder, initial encounter 07/24/2019 M75.41 Impingement syndrome of right shoulder Tory Weathers, RPA -C 07/21/2019 G43.009 Migraine without aura, not intractable, Leandro Gagnon NP without status migrainosus 07/21/2019 R55 Syncope and collapse Leandro Borjamaggie, DRILL OPERATOR PNEUMATIC 07/21/2019 F07.81 Postconcussional syndrome Leandro Gagnon NP [...] without status migrainosus 06/28/2019 M54.2 Cervicalgia Leandro Gagnon, JANETH 05/31/2019 R56.9 Unspecified convulsions Law Herrera MD 05/16/2019 G40.89 Other seizures Maritza Del Cid M.D. 05/16/2019 D35.2 Benign neoplasm of pituitary gland Maritza Del Cid M.D. 05/16/2019 Z72.0 Tobacco use Maritza Del Cid M.D. 05/16/2019 G50.1 Atypical facial pain Maritza Del Cid M.D. Plan of Treatment Future Appointment(s):09/04/2019 11:15 am - Giana Don M.D. at [facility] at Hkvsfx4708/22/2019 1:15 pm - Damon Cuevas MD at [facility] at Yvqlqs2709/01/2019 11:30 am - Leandro Gagnon NP at [facility] Bizmfl0509/06/2019 2:00 pm - Adal Mendieta MD at [facility]08/07/2019 - Giana Don M.D.M75.41 Impingement syndrome of right shoulderNew Xrays:MRI Shoulder Arthrogram Rightw, Ordered: Follow up:Follow up: after testing is siqfyjmizC17.011A Strain of muscle( s) and tendon(s) of the rotator cuff of right shoulder, initial encounter Functional Status Description No Information Available Mental Status Description No Information Available Referrals Refer to Reason for Referral Status Appt Date Milton Cai MD Previous patient; describes syncopal events, Created lightheadedness, dizziness [address] [facility] [address] [place] [address] [phone] Adal Mendieta MD Patient Notified 09/06/[address] [place] [id number] [phone] eNlson Schmid M.D. Sent 06/28/2019 [address] [place] [address] [place] [id number] [phone]
[2019-08-07 14:12] VITALS: BP 107/73
--- NOTE | 2019-08-07 14:15 | UC ---
Shoulder Pain HPI - HPI Summary HPI Summary: 34 y/o female presents to the urgent care c/o RT shoulder pain for the past 3 days s/p carrying her baby and doing a sudden movement w/ her shoulder. Pt reports Hx of 4 surgeries on her RT upper extremity in the past [address] Negron and DR Moore. DR Moore wants to do a new surgery in her Rt elbow. She states she saw DR Arreola today for her RT shoulder and ordered and MRI and now she has to wait for her insurance to approved it. However, she was told that her PCP is the one who can Rx her Tramadol. She states She has taken Prednisone PO, Muscle relaxants and joint Inj w/o any improvement of her pain. She states pain has gotten worse over the weekend after that sudden movement. Pain is 9/10, sharp, burning w/ movements w/o any radiation associated w/ mild numbness . She also reports Hx of Pituitary Adenoma and in 04/2019 had and seizure where she re-injured her RT shoulder. She has been taking Ibuprofen/ Tylenol PO to alleviate her symptoms. 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 Her PCP has retired and now she needs a new one. LMP:07/08/2019. - History of Current Complaint Chief Complaint: UCUpperExtremity Stated Complaint: SHOULDER PAIN Time Seen by Provider: 08/07/19 14:05 Hx Obtained From: Patient Hx Last Menstrual Period: 07/08/2019 ?: No - Pt declines pregnacy test. She states she is about to have her period Onset/Duration: Sudden Onset, Lasting Days - 3 days w/ suden onset of RT shoulder pain s/p holding her baby and do a sudden movement, Still Present Timing: Constant Severity Initially: Mild Severity Currently: Severe Location Of Pain: Is Discrete @ - RT shoulder, Radiates To - RT elbow and RT shoulder blade Pain Intensity: 8 Pain Scale Used: 0-10 Numeric Character: Sharp, Spasmodic Aggravating Factor(s): Movement, Lifting, Abduction Alleviating Factor(s): Rest, Ice, OTC Meds - Ibuprofen PO this morning Associated Signs And Symptoms: Positive: Numbness/Tingling - mild. Negative: Swelling, Redness, Bruising, Fever, Weakness Related History: Dominant Hand Right - Risk Factors Non-Orthopedic Risk Factor: Negative DVT Risk Factors: Negative Septic Arthritis Risk Factor: Negative - Allergies/Home Medications Allergies/Adverse Reactions: Allergies Allergy/AdvReac Type Severity Reaction Status Date / Time propoxyphene Allergy Intermediate skin rash Verified 08/07/19 14:13 [From Darvocet-N] cephalexin [From Keflex] AdvReac Severe Unknown Verified 08/07/19 14:13 Reaction Details clarithromycin [From Biaxin] AdvReac Severe Nausea And Verified 08/07/19 14:13 Vomiting cyclobenzaprine AdvReac Severe See Comment Verified 08/07/19 14:13 [From Flexeril] divalproex sodium AdvReac Severe Abdominal Verified 08/07/19 14:13 [From Depakote] Pain doxycycline AdvReac Severe Rash Verified 08/07/19 14:13 naproxen AdvReac Severe Abdominal Verified 08/07/19 14:13 Pain Penicillins AdvReac Severe Hives/Diff. Verified 08/07/19 14:13 Breathing/I tching trimethoprim [From Bactrim] AdvReac Severe Nausea Verified 08/07/19 14:13 metaxalone [From Skelaxin] AdvReac Intermediate See Comment Verified 08/07/19 14 :13 morphine AdvReac Intermediate Swelling Verified 08/07/19 14:13 Of Face,Lips,& Throat miracle whip AdvReac Severe n/v, Uncoded 08/07/19 14:13 itchy. hives ragu spaghetti sauce AdvReac Severe n/v, Uncoded 08/07/19 14:13 hives, itchiness Home Medications: Home Medications Acetaminophen TAB* [Tylenol TAB*] 1,500 mg PO Q4H PRN 08/07/19 [History Confirmed 08/07/19] Cbd Cream 1 applic TOPICAL DAILY PRN 08/07/19 [History Confirmed 08/07/19] Menthol/Aloe Vera Extract [Icy Hot 16% Power Gel] 1 applic TOPICAL DAILY PRN [History Confirmed 08/07/19] diphenhydrAMINE HCl [Benadryl Allergy] 1 tab PO ONCE PRN 08/07/19 [History Confirmed 08/07/19] PMH/Surg Hx/FS Hx/Imm Hx Previously Healthy: Yes Other Endocrine History: PCOS Other Neurological History: Pituitary adenoma Other History Of: Negative For: Anticoagulant Therapy - Surgical History Surgical History: Yes Surgery Procedure, Year, and Place: Right wrist surgery/RIGHT ELBOW 05/17/17. 2018 RIGHT SHOULDER SURGERYx2. [place]illectomy 1989 [place] [facility] [place] [facility] [place] [facility] [place] ( one in office and [place] [facility] [place] [facility] [place]OSCOPIES/COLONOSCOPIES - Family History Known Family History: Positive: Cardiac Disease - mom, Diabetes - Social History Occupation: Disabled Lives: With Family Alcohol Use: None Substance Use Type: Marijuana Substance Use Comment - Amount & Last Used: hx cannabis use Smoking Status (MU): Light Every Day Tobacco Smoker Type: Cigarettes Amount Used/How Often: 1/4 PPD Length of Time of Smoking/Using Tobacco: since 17yo Have You Smoked in the Last Year: Yes When Did the Patient Quit Smoking/Using Tobacco: 1 MONTH AGO Household Exposure Type: Cigarettes - Immunization History Most Recent Influenza Vaccination: none Most Recent Tetanus Shot: unsure Most Recent Pneumonia Vaccination: none Review of Systems All Other Systems Reviewed And Are Negative: Yes Constitutional: Positive: Negative Skin: Positive: Negative Eyes: Positive: Negative ENT: Positive: Negative Respiratory: Positive: Negative Cardiovascular: Positive: Negative Gastrointestinal: Positive: Negative Genitourinary: Positive: Negative Motor: Positive: Negative Neurovascular: Positive: Negative Musculoskeletal: Positive: Decreased ROM - RT shoulder, Other: - RT shoulder pain s/p sudden movment while carrying her baby Neurological: Positive: Negative Psychological: Positive: Negative Is Patient Immunocompromised?: No Physical Exam - Summary Physical Exam Summary: Vital Signs Reviewed: Yes GENERAL: Well-Appearing, No Pain Distress, Well-Nourished obese female w/o mild apparent pain distress Eyes: Positive: Conjunctiva Clear - PERRL,EOMI ENT: Positive: Normal ENT inspection, Hearing grossly normal, Pharyngeal erythema - mild, Nasal drainage - clear, Uvula midline Neck: Positive: Supple, Nontender, No Lymphadenopathy Respiratory: Positive: Chest non-tender, Lungs clear, Normal breath sounds, No respiratory distress Cardiovascular: Positive: RRR, No Murmur, Pulses Normal, Brisk Capillary Refill Abdomen Description: Positive: Nontender, No Organomegaly, Soft. Negative: CVA Tenderness (R), CVA Tenderness (L) Bowel Sounds: Positive: Present Musculoskeletal: RT shoulder: The RT shoulder is with/without obvious asymmetry or deformity when compared to the L shoulder. posterior shoulder w/ ecchymosis and bruising, no crepitus. No bony deformity or prominence of humeral head. No erythema, warmth. No Point Tenderness to palpation over the clavicle, or scapula. positive tenderness over Acromioclavicular joint and humeral head with no swelling, NT to palpation of the bicipital groove . NT to palpation of the muscles of the sternocleidomastoid, pectoralis, biceps/triceps, deltoid, trapezius, . Limited ROM due to pain especially in adduction and abduction.on both passive and active, internal/external rotation, flexion/extension. "empty can and drop arm test unable to perform due to pain. No axillary tenderness or lymphadenopathy. Normal sensation over the deltoid and fingers. Distal motor and neurovascular status is intact. Neurological Exam: Normal Psychological Exam: Normal Skin Exam: Normal Triage Information Reviewed: Yes Vital Signs: Initial Vital Signs Temp 97.3 F 08/07/19 13:58 Pulse 91 08/07/19 13:58 Resp 18 08/07/19 13:58 BP 107/73 08/07/19 13:58 Pulse Ox 99 08/07/19 13:58 Shoulder Course/Dx - Course Course Of Treatment: 34 y/o female presents to the urgent care c/o RT shoulder pain for the past 3 days s/p carrying her baby and doing a sudden movement w/ her shoulder. Pt reports Hx of 4 surgeries on her RT upper extremity in the past [address] Negron and DR Moore. DR Moore wants to do a new surgery in her Rt elbow. She states she saw DR Arreola today for her RT shoulder and ordered and MRI and now she has to wait for her insurance to approved it. However, she was told that her PCP is the one who can Rx her Tramadol. She states She has taken Prednisone PO, Muscle relaxants and joint Inj w/o any improvement of her pain. She states pain has gotten worse over the weekend after that sudden movement. Pain is 9/10, sharp, burning w/ movements w/o any radiation associated w/ mild numbness . She also reports Hx of Pituitary Adenoma and in 04/2019 had and seizure where she re-injured her RT shoulder. She has been taking Ibuprofen/ Tylenol PO to alleviate her symptoms. 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 Her PCP has retired and now she needs a new one. LMP:07/08/2019.Hx obtained. Pt is hemodynamically stable. A&OX3, VS: WNL. I-stop #[id number]. Pt Rx Tramadol on 07/29/2019 8 tabs and on 05/26/[address] Dwayne Burnett. RT shoulder X-ray ordered since recent re-injury,FINDINGS: The bones are in normal alignment. No fracture is seen. The patient appears to be status post resection of the distal clavicle. There is a lucent lesion in the proximal metaphysis of the humerus which is unchanged likely from a prior biceps tenodesis. There is a small sclerotic lesion in the glenoid process of the scapula which is unchanged from prior studies favoring a benign bone island. No significant arthritic change is seen. IMPRESSION: POSTSURGICAL CHANGES, NO EVIDENCE FOR FRACTURE as per radiologist. Pt strongly advised to keep her Shoulder immobilized with a shoulder sling she has at home and avoid carrying her 3 month old baby until symptoms improve. Pt given information to be able to set up an appt w/ a new PCP and strongly recommended to f/u w/ DR Arreola and DR moore for further managment on her symptoms. Pt Rx Tramadol PO for a couple of days. D/c instructions explained. Pt understood and agreed w/ plan of care. - Differential Dx/Diagnosis Differential Diagnosis/HQI/PQRI: AC Separation, Arthritis, Contusion, Dislocation, Fracture (Closed), Rotator Cuff Injury, Sprain, Strain, Tendonitis Provider Diagnosis: Right shoulder pain, Tendonitis of shoulder, right Discharge ED - Sign-Out/Discharge Documenting (check all that apply): Patient Departure - D/C home All imaging exams completed and their final reports reviewed: Yes - Discharge Plan Condition: Stable Disposition: HOME Prescriptions: Tramadol 50 MG # 6 TAB PREPAK 50 mg PO BID #6 tab MDD 400mg/day Patient Education Materials: Shoulder Pain (ED) Referrals: [facility] [Outside] - 3 Days Giana Arreola MD [Medical Doctor] - 3 Days Additional Instructions: 1-Please take medications as directed to alleviate pain and swelling. 2-Please apply ice, keep your shoulder immobilized yopu have at home with the shoulder sling for 3-4 days and then resume movement slowly. avoid strenuous exercises or heavy lifting. 3- Please f/u with your Orthopedic DR Arreola in 3 days if not improvement of symptoms for further evaluation and treatment. - Billing Disposition and Condition Condition: STABLE Disposition: Home
[2019-08-07] MEDS ORDERED: Acetaminophen TAB* 325 MG PO ONE (14:48)
== END 2019-08-07 16:00 | disposition home or self-care (01) ==
LOC: UCEAST 13:50
DX: M25.511 Pain in right shoulder (principal); M75.91 Shoulder lesion, unspecified, right shoulder; F17.210 Nicotine dependence, cigarettes, uncomplicated; E28.2 Polycystic ovarian syndrome; Z88.5 Allergy status to narcotic agent; Z88.1 Allergy status to other antibiotic agents; Z88.8 Allergy status to other drugs, medicaments and biological substances; Z88.0 Allergy status to penicillin; Z88.2 Allergy status to sulfonamides; Z91.018 Allergy to other foods; Z98.890 Other specified postprocedural states
CPT/HCPCS: 99212; A9270-GY; G0463

== ENCOUNTER 2019-08-24 19:51 | Emergency (ER) | payer OTHER ==
--- OUTSIDE RECORDS SUMMARY | 2019-08-24 20:28 | XMS REPORT | Continuity of Care Document ---
:1985 External Reference #:[id number] Author Name Damon Cuevas MD (transmitted by agent of provider Charissa Estrella) Address [address] [place] [address] Care Team Providers Name Role Phone Destin Mayer M.D. - Family Medicine Care Team Information Salvage Repairer Jimmy Becker DO - Interventional Care Team Information Salvage Repairer Pain Medicine [facility] - Sleep Disorder Care Team Information Salvage Repairer [phone] Diagnostic Dwayne Fermin MD - Orthopaedic Care Team Information Salvage Repairer Surgery Milton Moreno MD - Otolaryngology Care Team Information Salvage Repairer [phone] Mars Snyder MD - Interventional Care Team Information Salvage Repairer [phone] Pain Medicine Belgica Cueto MD - Endocrinology, Care Team Information Salvage Repairer [phone] Diabetes & Metabolism Kamaljit Soria M.D. - Neurological Care Team Information Salvage Repairer Surgery Rosa Torres M.D. - Family Medicine Care Team Information Salvage Repairer Adal Mendieta MD - Endocrinology, Care Team Information Salvage Repairer Diabetes & Metabolism Nelson Schmid M.D. - Neurology Care Team Information Salvage Repairer [phone] Problems Active Problems Provider Date Congenital spondylolysis [...] of shoulder Jourdan Workman MD Onset: 04/28/2018 Strain of muscle(s) and tendon(s) of the Damon Cuevas MD Onset: 08/22/2019 rotator cuff of right shoulder, subsequent encounter Social History Type Date Description Comments Sex Unknown Tobacco Use Start: Unknown Current Cigarette Smoker 1 Pack Daily Cigarette Use Pack Years - 14 ETOH Use Denies alcohol use Recreational Drug Use Denies Drug Use Tobacco Use Start: Unknown Patient is a current smoker, smokes every day Tobacco Use Start: Unknown Light tobacco smoker (10 or fewer cigarettes/day) Smoking Status Reviewed: 08/22/19 Light tobacco smoker (10 or fewer cigarettes/day) [...] Acetaminophen 2 tab 3 times 90tabs M54.5 [place] 12/16/2017 500mg daily as needed Tima Rocha [...] Meloxicam 1 by mouth 20tabs G50.1 Maritza DelC id, 05/16/2019 - 15mg Tablets every day M.D. 06/27/2019 Medications Administered in Office Medication SIG Qnty Indications Ordering Provider Date Records Fee Damon Cuevas MD 07/27/2019 Injection Triamcinolone (Kenalog) Jourdan Workman MD 02/23/2017 Injection Immunizations CPT Code Status Date Vaccine Lot # [id number] Given 05/04/2013 Flu Vaccine NOS [id number] Given 10/27/2012 Tdap - Tetanus/Diptheria/Acellular Pertussis [id number] Vital Signs Date Vital Result Comment 08/22/2019 1:28pm Height 69 inches 5'9" Weight 190.00 lb Heart Rate 68 /min BP Systolic 114 mmHg BP Diastolic 68 mmHg Respiratory Rate 16 /min Pain Level 10 BMI (Body Mass Index) 28.1 kg/m2 08/07/2019 1:05pm Height 69 inches 5'9" Weight 190.00 lb Heart Rate 110 /min Body Temperature 97.6 F O2 % BldC Oximetry 98 % BMI (Body Mass Index) 28.1 kg/m2 Results Test Acquired Date Facility Test Result H/L Range Note Inr/Protime 06/11/2019 [facility] Inr 1.06 Normal 0.82-1.[address] [place] [address] [phone] CBC Auto 06/11/2019 [facility] White Blood 9.6 10^3/uL Normal 3.5-10.[address] [place] [address] [phone] Red Blood Count 4.17 10^6/uL Normal 3.70-4.87 [...] Blood Cells % 0.0 Laboratory test 06/11/2019 [facility] Lactic Acid 0.9 mmol/L Normal 0.5-2.0 2 finding [address] [place] [address] [phone] Comp Metabolic 06/11/2019 [facility] Sodium 134 mmol/L Low 135 -145 Panel [address] [place] [address] [phone] Potassium 3.5 mmol/L Normal 3.5-5.0 Chloride 102 [...] Egfr 88.4 >60 3 Laboratory test 06/11/2019 [facility] Magnesium 1.8 mg/dL Low 1.9-2.7 finding [address] [place] [address] [phone] Urinalysis 06/11/2019 [facility] Urine Color Yellow Profile [address] [place] [address] [phone] Urine Appearance Clear Urine Specific Riley 1.011 Normal 1.010-1.030 Urine pH 5.0 Normal 5-9 Urine Urobilinogen Negative Negative Urine Ketones Negative Negative Urine Protein Negative Negative Urine Leukocytes Negative Negative Urine Blood Negative Negative Urine Nitrite Negative Negative Urine Bilirubin Negative Negative Urine Glucose Negative Negative Laboratory test 05/16/2019 [facility] Prolactin 19.7 ng/mL Normal 1.0-25.0 finding [address] [place] [address] [phone] TSH (Thyroid Stim Horm) 1.36 mcIU/mL Normal 0.34-5.60 Magnesium 1.9 mg/dL Normal 1.9-2.7 1 Standard intensity warfarin therapeutic range: 2.0-3.0 High intensity warfarin therapeutic range: 2.5-3.[address] [facility] Severe Sepsis and Septic Shock Management Bundle [...] dialysis) Procedures Date Code Description Status 07/10/2019 83219 EEG Recording Awake & Drowsy Completed 05/31/2019 39231 EEG Recording Awake & Drowsy Completed 06/24/2010 [id number] Mammogram Completed Medical Devices Description No Information Available Encounters Type Date Location Provider Dx Diagnosis Office Visit 08/07/2019 [facility] Giana M75.41 Impingement 1:30p at Lidia Don M.D. syndrome of right shoulder S46.011A Strain of musc/tend the rotator cuff of right shoulder, init M25.511 Pain in right shoulder Office Visit 07/24/2019 2:45p [facility] Tory Weathers M25.511 Pain in right at [place] RPA-C shoulder S46.011A Strain of musc/tend the rotator cuff of right shoulder, init M75.41 Impingement syndrome of right shoulder Office Visit 07/21/2019 [facility] Leandro Gagnon, G43.009 Migraine w/o 11:00a Clinic BOND ANALYST aura, not intractable, w/o status migrainosus R55 Syncope and collapse F07.81 Postconcussional syndrome Office Visit 07/19/2019 11:15a [facility] Damon S46.011D Strain of at Lidia Cuevas MD musc/tend the rotator cuff of right shoulder, subs G56.01 Carpal tunnel syndrome, right upper limb G56.21 Lesion of ulnar nerve, right upper limb Office Visit 06/28/2019 [facility]agn[facility], R56.9 Unspecified 3:00p Clinic BOND ANALYST convulsions G43.009 Migraine w/o aura, not intractable, w/o status migrainosus M54.2 Cervicalgia Office Visit 05/16/2019 2:40p [facility] Internal Maritza G40.89 Other seizures Medicine - Lorraine Del Cid M.D. D35.2 Benign neoplasm of pituitary gland Z72.0 Tobacco use G50.1 Atypical facial pain Assessments Date Code Description Provider 08/22/2019 S46.011D Strain of muscle(s) and tendon(s) of the Damon Cuevas MD rotator cuff of right shoulder, subsequent encounter 08/22/2019 G56.21 Lesion of ulnar nerve, right upper limb Damon Cuevas MD 08/22/2019 G56.22 Lesion of ulnar nerve, left upper limb Damon Cuevas MD 08/07/2019 M75.41 Impingement syndrome of right shoulder Giana Don M.D. 08/07/2019 S46.011A Strain of muscle(s) and tendon(s) of the Giana Don M.D. rotator cuff of right shoulder, initial encounter 08/07/2019 M25.511 Pain in right shoulder Giana Don M.D. 07/27/2019 R55 Syncope and collapse Damon Cuevas MD 07/27/2019 M54.5 Low back pain Damon Cuevas MD 07/27/2019 R07.9 Chest pain, unspecified Damon Cuevas MD 07/24/2019 M25.511 Pain in right shoulder Tory Weathers, RPA-C 07/24/2019 S46.011A Strain of muscle(s) and tendon(s) of the Tory Weathers , RPA-C rotator cuff of right shoulder, initial encounter 07/24/2019 M75.41 Impingement syndrome of right shoulder Tory Weathers, RPA -C 07/21/2019 G43.009 Migraine without aura, not intractable, Leandro Gagnon, BOND ANALYST without status migrainosus 07/21/2019 R55 Syncope and collapse Leandro Gagnon, BOND ANALYST 07/21/2019 F07.81 Postconcussional syndrome Leandro Gagnon, JANETH 07/19/2019 S46.011D Strain of muscle(s) and tendon(s) [...] 05/16/2019 D35.2 Benign neoplasm of pituitary gland aMritza Del Cid M.D. 05/16/2019 Z72.0 Tobacco use Maritza Del Cid M.D. 05/16/2019 G50.1 Atypical facial pain Maritza Del Cid M.D. Plan of Treatment Future Appointment(s):08/29/2019 1:15 pm - Damon Cuevas MD at [facility] at [id number]/04/2019 11:15 am - Giana Don M.D. at [facility] at [id number]/01/2019 11:30 am - Leandro Gagnon NP at [facility] [id number]/22/2019 - Damon Cuevas, MDS46.011D Strain of muscle(s) and tendon(s) of the rotator cuff of right shoulder, subsequent epeeeduepX00.21 Lesion of ulnar nerve, right upper limbNew Xrays:Elbow Right 3+ VWS, Ordered: Wrist Right 3+ VWS, Ordered: 08/22/19Follow up:Follow up: 7-10 days before zzuoyamB33.22 Lesion of ulnar nerve, left upper limb Functional Status Description No Information Available Mental Status Description No Information Available Referrals Refer to Reason for Referral Status Appt Date Milton Cai MD Previous patient; describes syncopal events, Sent 0000 / lightheadedness, dizziness [address] [place] [address] [phone] Adal Mendieta MD Patient Notified 09/06/[address] [place] [address] [phone] Nelson Schmid M.D. Sent 06/28/[address] [place] [address] [place] [address] [phone]
--- OUTSIDE RECORDS SUMMARY | 2019-08-24 20:28 | XMS REPORT ---
:1985 Author Organization [facility] Care Team Providers Name Role Phone Unavailable Unavailable Unavailable Problems Condition Condition Condition Status Onset Resolution Last Treating Comments Name Details Category Date Date Treatment Clinician Date Supervision Supervision Diagnosis Active [facility] of high 5-01 Teixeira risk risk , , unspecified unspecified , first , first trimester trimester Allergies, Adverse Reactions, Alerts Allergy Allergy Status Severity Reaction(s) Onset Inactive Treating Comments Name Type Date Date Clinician Unknown None Active Unknown None Unknown No Known Allergies For This Patient Medications Ordered Filled Start Stop Current Ordering Indication Dosage Frequency Signature Comments Components Medication Medication Date Date Medication? Clinician (SIG) Name Name No Known No Known No None None None Medications Medications For This For This Patient Patient Procedures This patient has no known procedures. Results This patient has no known results.
--- OUTSIDE RECORDS SUMMARY | 2019-08-24 20:28 | XMS REPORT | Continuity of Care Document ---
:1985 External Reference #:[id number] Author Name Edd Prieto NP (transmitted by agent of provider Leigha Sanchez) Address [address], [place] [address] Care Team Providers Name Role Phone Destin Mayer M.D. - Family Medicine Care Team Information Test Facility Engineer Jimmy Becker DO - Interventional Care Team Information Test Facility Engineer Pain Medicine [facility] - Sleep Disorder Care Team Information Test Facility Engineer Diagnostic Dwayne Fermin MD - Orthopaedic Care Team Information Test Facility Engineer [phone] Surgery Milton Moreno MD - Otolaryngology Care Team Information Test Facility Engineer [phone] Mars Snyder MD - Interventional Care Team Information Test Facility Engineer [phone] Pain Medicine Belgica Cueto MD - Endocrinology, Care Team Information Test Facility Engineer Diabetes & Metabolism Kamaljit Soria M.D. - Neurological Care Team Information Test Facility Engineer Surgery Rosa Torres M.D. - Family Medicine Care Team Information Test Facility Engineer Adal Mendieta MD - Endocrinology, Care Team Information Test Facility Engineer [phone] Diabetes & Metabolism Nelson Schmid M.D. - Neurology Care Team Information Test Facility Engineer Problems Active Problems Provider Date Congenital spondylolysis [...] Indications Ordering Date Provider Amitriptyline HCL take 4 tabs by 120tabs G43.009 Kamaljit Mccoy 07/21/2019 10mg mouth at bedtime Tima Florentino Tablets Sumatriptan Succinate take 1 tablet by 12tabs G43.909 Kamaljit Mccoy 03/24/2018 mouth at onset of Tima Florentino 100mg Tablets headache. may repeat after 2 [...] 1units M54.5 Leatha Jenkins, 2012 fracture, kyphosis T[facility] [place] [facility] E888.9 Clindamycin HCL 1 tab by mouth Unknown 300mg three times a day Capsules for 5 days Tizanidine HCL take 1 tablet by 90tabs Maritza Del Cid M.D. 4mg Tablets mouth every 8 hours as needed Omeprazole 1 by mouth every 30caps Maritza Del Cid M.D. 40mg Capsules DR day History Medications Prednisone use as directed 1unalfred Faria 07/24/2019 - 5mg (21) Tima Don 08/22/2019 TBPK Amitriptyline HCL take one tab po 120tabs G43.009 Kamaljit Mccoy 07/21/2019 - 10mg at hs for one Tima Florentino 07/24/2019 Tablets wk, take 2 tabs at hs for one wk, take 3 tabs at hs for one wk, take 4 tabs at hs Meloxicam 1 by mouth every 20tabs G50.1 Maritza 05/16/2019 - 15mg Tablets grady Del Cid M.D. 06/27/2019 Medications Administered in Office Medication SIG Qnty Indications Ordering Provider Date Records Fee Damon Cuevas MD 07/27/2019 Injection Triamcinolone (Kenalog) Jourdan Workman MD 02/23/2017 Injection Immunizations CPT Code Status Date Vaccine Lot # [id number] Given 05/04/2013 Flu Vaccine NOS [id number] Given 10/27/2012 Tdap - Tetanus/Diptheria/Acellular Pertussis [id number] Vital Signs Date Vital Result Comment 08/22/2019 3:12pm Height 69 inches 5'9" Weight 190.00 lb Heart Rate 67 /min BP Systolic Sitting 119 mmHg BP Diastolic Sitting 80 mmHg BMI (Body Mass Index) 28.1 kg/m2 08/22/2019 1:28pm Height 69 inches 5'9" Weight 190.00 lb Heart Rate 68 /min BP Systolic 114 mmHg BP Diastolic 68 mmHg Respiratory Rate 16 /min Pain Level 10 BMI (Body Mass Index) 28.1 kg/m2 Results Test Acquired Date Facility Test Result H/L Range Note Inr/Protime 06/11/2019 [facility] Inr 1.06 Normal 0.82-1.09 [address] [place] [address] [phone] CBC Auto 06/11/2019 [facility] White Blood 9.6 10^3/uL Normal 3.5-10.8 Diff [address] [facility] [place] [address] [phone] Red Blood Count 4.17 10^6/uL Normal 3.70-4.87 [...] Blood Cells % 0.0 Laboratory test 06/11/2019 [facility] Lactic Acid 0.9 mmol/L Normal 0.5-2.0 2 finding [address] [place] [address] [phone] Comp Metabolic 06/11/2019 [facility] Sodium 134 mmol/L Low 135 -145 Panel [address] [place] [address] [phone] Potassium 3.5 mmol/L Normal 3.5-5.0 Chloride 102 [...] Egfr 88.4 >60 3 Laboratory test 06/11/2019 [facility] Magnesium 1.8 mg/dL Low 1.9-2.7 finding [address] [place] [address] [phone] Urinalysis 06/11/2019 [facility] Urine Color Yellow Profile [address] [place] [address] [phone] Urine Appearance Clear Urine Specific Jupiter 1.011 Normal 1.010-1.030 Urine pH 5.0 Normal 5-9 Urine Urobilinogen Negative Negative Urine Ketones Negative Negative Urine Protein Negative Negative Urine Leukocytes Negative Negative Urine Blood Negative Negative Urine Nitrite Negative Negative Urine Bilirubin Negative Negative Urine Glucose Negative Negative Laboratory test 05/16/2019 [facility] Prolactin 19.7 ng/mL Normal 1.0-25.0 finding [address] [place] [address] [phone] TSH (Thyroid Stim Horm) 1.36 mcIU/mL Normal 0.34-5.60 Magnesium 1.9 mg/dL Normal 1.9-2.7 1 Standard intensity warfarin therapeutic range: 2.0-3.0 High intensity warfarin therapeutic range: 2.5-3.5 2 [facility] Severe Sepsis and Septic Shock Management [...] dialysis) Procedures Date Code Description Status 07/10/2019 08194 EEG Recording Awake & Drowsy Completed 05/31/2019 08386 EEG Recording Awake & Drowsy Completed 06/24/2010 [id number] Mammogram Completed Medical Devices Description No Information Available Encounters Type Date Location Provider Dx Diagnosis Office Visit 08/07/2019 [facility] Giana M75.41 Impingement 1:30p at Lidia Don M.D. syndrome of right shoulder S46.011A Strain of musc/tend the rotator cuff of right shoulder, init M25.511 Pain in right shoulder Office Visit 07/24/2019 2:45p [facility] Tory Weathers, M25.511 Pain in right at [facility] shoulder S46.011A Strain of musc/tend the rotator cuff of right shoulder, init M75.41 Impingement syndrome of right shoulder Office Visit 07/21/2019 [facility] Leandro Gagnon, G43.009 Migraine w/o 11:00a Clinic [employer] aura, not intractable, w/o status migrainosus R55 Syncope and collapse F07.81 Postconcussional syndrome Office Visit 07/19/2019 11:15a [facility] Damon S46.011D Strain of at Lidia Cuevas MD musc/tend the rotator cuff of right shoulder, subs G56.01 Carpal tunnel syndrome, right upper limb G56.21 Lesion of ulnar nerve, right upper limb Office Visit 06/28/2019 [facility], R56.9 Unspecified 3:00p Clinic [employer] convulsions G43.009 Migraine w/o aura, not intractable, w/o status migrainosus M54.2 Cervicalgia Office Visit 05/16/2019 2:40p [facility] Maritza G40.89 Other seizures Medicine - Lorraine Del Cid M.D. D35.2 Benign neoplasm of pituitary gland Z72.0 Tobacco use G50.1 Atypical facial pain Assessments Date Code Description Provider 08/22/2019 G89.4 Chronic pain syndrome Edd Riggins Ida, [employer] INS[employer] 08/22/2019 S46.011D Strain of muscle(s) and tendon(s) of Damon Cuevas MD the rotator cuff of right shoulder, subsequent encounter 08/22/2019 G56.21 Lesion of ulnar nerve, right upper Damon Cuevas MD limb 08/22/2019 G56.22 Lesion of ulnar nerve, left upper Damon Cuevas MD limb 08/07/2019 M75.41 Impingement syndrome of right Giana Don M.D. shoulder 08/07/2019 S46.011A Strain of muscle(s) and tendon(s) of Giana Don M.D. the rotator cuff of right shoulder, initial encounter 08/07/2019 M25.511 Pain in right shoulder Giana Don M.D. 07/27/2019 R55 Syncope and collapse Damon Cuevas MD 07/27/2019 M54.5 Low back pain Damon Cuevas MD 07/27/2019 R07.9 Chest pain, unspecified Damon Cuevas MD 07/24/2019 M25.511 Pain in right shoulder Tory Weathers, RPA-C 07/24/2019 S46.011A Strain of muscle(s) and tendon(s) of Tory Weathers, RPA -C the rotator cuff of right shoulder, initial encounter 07/24/2019 M75.41 Impingement syndrome of right Tory Weathers, RPA-C shoulder 07/21/2019 G43.009 Migraine without aura, not Leandro Gagnon NP intractable, without status migrainosus 07/21/2019 R55 Syncope and collapse Leandro Gagnon NP 07/21/2019 F07.81 Postconcussional syndrome Leandro Gagnon NP 07/19/2019 S46.011D Strain of muscle(s) and tendon(s) of Damon Cuevas MD the rotator cuff of right shoulder, subsequent encounter 07/19/2019 G56.01 Carpal tunnel syndrome, right upper Damon Cuevas MD limb 07/19/2019 G56.21 Lesion of ulnar nerve, right upper Damon Cuevas MD limb 07/10/2019 R56.9 Unspecified convulsions Kamaljit Florentino M.D. 06/28/2019 R56.9 Unspecified convulsions Leandro Gagnon, JANETH 06/28/2019 G43.009 Migraine without aura, not Leandrofarooq Gagnon, JANETH intractable, without status migrainosus 06/28/2019 M54.2 Cervicalgia Leandro Gagnon NP 05/31/2019 R56.9 Unspecified convulsions Law Herrera MD 05/16/2019 G40.89 Other seizures Maritza Del Cid M.D. 05/16/2019 D35.2 Benign neoplasm of pituitary gland Maritza Del Cid M.D. 05/16/2019 Z72.0 Tobacco use Maritza Del Cid M.D. 05/16/2019 G50.1 Atypical facial pain Maritza Del Cid M.D. Plan of Treatment Future Appointment(s):10/24/2019 11:00 am - Damon Cuevas MD at [facility] at Qkpxpe1911/13/2019 7:30 am - Damon Cuevas MD at [facility] at Rnwiqk3208/29/2019 1:15 pm - Damon Cuevas MD at [facility] at Atcmmv5209/04/2019 11:15 am - Giana Don M.D. at [facility] at Tgolhs5109/01/2019 11:30 am - Leandro Gagnon NP at [facility] Hkldky2308/22/2019 - Damon Cuevas MDS46.011D Strain of muscle(s) and tendon(s) of the rotator cuff of right shoulder, subsequent jjbjgwqffA15.21 Lesion of ulnar nerve, right upper limbNew Xrays:Elbow Right 3+ VWS, Ordered: Wrist Right 3+ VWS, Ordered: 08/22/19Follow up:Follow up: 7-10 days before swnhgrvK55.22 Lesion of ulnar nerve, left upper limb Functional Status Description No Information Available Mental Status Description No Information Available Referrals Refer to Reason for Referral Status Appt Date Milton Cai MD Previous patient; describes syncopal events, Sent 00/00 /0000 lightheadedness, dizziness [address] [facility] [address] [place] [address] [phone] Adal Mendieta MD Patient Notified 09/06/[address] [place] [id number] [phone] Nelson Schmid M.D. Sent 06/28/2019 [address] [place] [id number] [phone]
--- NOTE | 2019-08-24 20:54 | ED ---
Throat Pain/Nasal Congestion - HPI Summary HPI Summary: 34 year old female presents with dental pain for the past couple weeks. She states she has been on multiple course of clindamycin and penicillin. Shewas change to penicillin last week. States that since then that she developed sharp pain whenever there is a temperature change. She states she also developed pain under her eye. She just had pain on left side of jaw a week ago and now has pain on the right. She denies any pain with eye movement. She denies any chest pain or shortness breath. No sore throat. She denies any fevers but she admits to chills. She should also been having abdominal pain nausea and diarrhea. She is concerned that she is becoming septic. Patient has a follow-up with oral surgeon on Wednesday. - History of Current Complaint Chief Complaint: EDDentalPain Time Seen by Provider: 08/24/19 20:11 - Allergies/Home Medications Allergies/Adverse Reactions: Allergies Allergy/AdvReac Type Severity Reaction Status Date / Time propoxyphene Allergy Intermediate skin rash Verified 08/19/19 10:15 [From Darvocet-N] cephalexin [From Keflex] AdvReac Severe Unknown Verified 08/19/19 10:15 Reaction Details clarithromycin [From Biaxin] AdvReac Severe Nausea And Verified 08/19/19 10:15 Vomiting cyclobenzaprine AdvReac Severe See Comment Verified 08/19/19 10:15 [From Flexeril] divalproex sodium AdvReac Severe Abdominal Verified 08/19/19 10:15 [From Depakote] Pain doxycycline AdvReac Severe Rash Verified 08/19/19 10:15 naproxen AdvReac Severe Abdominal Verified 08/19/19 10:15 Pain Penicillins AdvReac Severe Hives/Diff. Verified 08/19/19 10:15 Breathing/I tching trimethoprim [From Bactrim] AdvReac Severe Nausea Verified 08/19/19 10:15 metaxalone [From Skelaxin] AdvReac Intermediate See Comment Verified 08/19/19 10 :15 morphine AdvReac Intermediate Swelling Verified 08/19/19 10:15 Of Face,Lips,& Throat miracle whip AdvReac Severe n/v, Uncoded 08/19/19 10:15 itchy. hives ragu spaghetti sauce AdvReac Severe n/v, Uncoded 08/19/19 10:15 hives, itchiness PMH/Surg Hx/FS Hx/Imm Hx Endocrine/Hematology History: Denies: Hx Anticoagulant Therapy, Hx Blood Disorders, Hx Diabetes Cardiovascular History: Reports: Hx Syncope, Other Cardiovascular Problems/ Disorders - low blood pressure Denies: Hx Hypertension, Hx Pacemaker/ICD Respiratory History: Reports: Other Respiratory Problems/Disorders - insomnia Denies: Hx Asthma, Hx Chronic Obstructive Pulmonary Disease (COPD) GI History: Reports: Hx Gastroesophageal Reflux Disease - on med, Hx Irritable Bowel, Hx Ulcer - stomach ulcers and an ulcer in esophagus, Other GI Disorders - DIVERTICULITIS-? History: Reports: Other Problems/Disorders - polycystic ovarian syndrome Denies: Hx Dialysis, Hx Renal Disease Musculoskeletal History: Reports: Hx Arthritis, Hx Back Problems, Hx Orthopedic Injury, Hx Osteoporosis - spondylolisthesis, Hx Tendonitis, Other Musculoskeletal History - reports multiple fractures in past, chronic right arm pain and injury/ulnar Denies: Hx Rheumatoid Arthritis Sensory History: Denies: Hx Cataracts, Hx Contacts or Glasses, Hx Legally Blind, Hx Deafness, Hx Hearing Aid Opthamlomology History: Denies: Hx Cataracts, Hx Contacts or Glasses, Hx Legally Blind Neurological History: Reports: Hx Migraine - on med prn, Hx Nerve Disease - fibromyalgia, Hx Spinal Cord Injury - fx of L4, L5 S1, Other Neuro Impairments/ Disorders - reports she has a pituitary adenoma Psychiatric History: Reports: Hx Anxiety - NO MEDICATION FOR AT THIS TIME, Hx Depression - NO MEDICATION FOR AT THIS TIME, Hx Post Traumatic Stress Disorder, Hx Community Mental Health Tx Denies: Hx Attention Deficit Hyperactivity Disorder, Hx Eating Disorder, Hx Panic Disorder, Hx Inpatient Treatment, Hx Schizophrenia, Hx Bipolar Disorder, Hx Suicide Attempt, Hx of Violent Episodes Against Others, Hx Substance Abuse, Other Psychiatric Issues/Disorders - Cancer History Cancer Type, Location and Year: None reported Hx Chemotherapy: No - Surgical History Surgery Procedure, Year, and Place: Right wrist surgery/RIGHT ELBOW 05/17/17. 2018 RIGHT SHOULDER SURGERYx2. [place] 1989 [place]. [place] [facility] [place] [facility] [place]. [place] [facility] [place] extraction ( one in office and one [place] [facility] [place] ear biopsy - 2014 [facility] [place]. ENDOSCOPIES/COLONOSCOPIES Hx Anesthesia Reactions: No - Immunization History Date of Tetanus Vaccine: Up to date Date of Influenza Vaccine: declined Infectious Disease History: No Infectious Disease History: Denies: Hx Clostridium Difficile, Hx Hepatitis, Hx Human Immunodeficiency Virus (HIV), Hx of Known/Suspected MRSA, Hx Shingles, Hx Tuberculosis, Hx Known/ Suspected VRE, Hx Known/Suspected VRSA, History Other Infectious Disease, Traveled Outside the [place] in Last 30 Days - Family History Known Family History: Positive: Cardiac Disease - mom, Diabetes - Social History Alcohol Use: None Hx Substance Use: Yes - not currently Substance Use Type: Reports: Marijuana Substance Use Comment - Amount & Last Used: hx cannabis use Hx Tobacco Use: Yes Smoking Status (MU): Light Every Day Tobacco Smoker Type: Cigarettes Amount Used/How Often: 1/4 PPD Length of Time of Smoking/Using Tobacco: since 17yo Have You Smoked in the Last Year: Yes Review of Systems Negative: Fever Positive: Dental Pain Negative: Chest Pain Negative: Shortness Of Breath Positive: Abdominal Pain, Vomiting, Nausea All Other Systems Reviewed And Are Negative: Yes Physical Exam Triage Information Reviewed: Yes Vital Signs On Initial Exam: Initial Vitals Temp Pulse Resp BP Pulse Ox 99 F 92 16 138/83 100 08/24/19 19:58 08/24/19 19:58 08/24/19 19:58 08/24/19 19:58 08/24/19 19:58 Vital Signs Reviewed: Yes Appearance: Positive: Well-Appearing Skin: Positive: Warm, Dry Head/Face: Positive: Normal Head/Face Inspection Eyes: Positive: Normal, EOMI, PARVEZ, Conjunctiva Inflammed ENT: Positive: Pharynx normal, TMs normal Dental: Positive: Gross Decay/Caries @ - throughout. Negative: Abscess @, Cellulitis @ Neck: Positive: Supple, No Lymphadenopathy, Tenderness @ - cervical lymph nodes Respiratory/Lung Sounds: Positive: Clear to Auscultation, Breath Sounds Present Cardiovascular: Positive: Normal, RRR Musculoskeletal: Positive: Normal Neurological: Positive: Normal Psychiatric: Positive: Normal Procedures - Sedation Patient Received Moderate/Deep Sedation with Procedure: No Diagnostics - Vital Signs Vital Signs Temp Pulse Resp BP Pulse Ox 08/24/19 20:44 99.0 F 92 16 138/83 100 08/24/19 19:58 99 F 92 16 138/83 100 - Laboratory Lab Statement: Any lab studies that have been ordered have been reviewed, and results considered in the medical decision making process. EENT Course/Dx - Course Course Of Treatment: 34 year old female presents with dental pain for the past couple weeks. She states she has been on multiple course of clindamycin and penicillin. Shewas change to penicillin last week. States that since then that she developed sharp pain whenever there is a temperature change. She states she also developed pain under her eye. She just had pain on left side of jaw a week ago and now has pain on the right. She denies any pain with eye movement. She denies any chest pain or shortness breath. No sore throat. She denies any fevers but she admits to chills. She should also been having abdominal pain nausea and diarrhea. She is concerned that she is becoming septic. Patient has a follow-up with oral surgeon on Wednesday. On exam is afebrile. Has tenderness over her entire jaw. Tenderness below right eye without any swelling noted. Dental caries throughout. Minimal erythema near cavities. since has been seen multiples times for same will get lab work and CT and patient declined. Patient decided to elope. - Differential Diagnoses Differential Diagnoses: Cellulitis, Dental Abscess, Dental Caries - Diagnoses Provider Diagnoses: Dental infection Discharge ED - Sign-Out/Discharge Documenting (check all that apply): Patient Departure - Discharge Plan Condition: Stable Disposition: ELOPEMENT Referrals: No Primary Care Phys,NOPCP [Primary Care Provider] - - Billing Disposition and Condition Condition: STABLE Disposition: Elopement
[2019-08-24 21:43] VITALS: BP 0/0
== END 2019-08-24 20:48 | disposition left against medical advice (07) ==
LOC: ED 19:51
DX: K04.7 Periapical abscess without sinus (principal); K02.9 Dental caries, unspecified; K21.9 Gastro-esophageal reflux disease without esophagitis; G43.909 Migraine, unspecified, not intractable, without status migrainosus; Z88.1 Allergy status to other antibiotic agents; Z88.5 Allergy status to narcotic agent; Z88.0 Allergy status to penicillin; Z88.2 Allergy status to sulfonamides; Z88.8 Allergy status to other drugs, medicaments and biological substances; Z91.018 Allergy to other foods; F17.210 Nicotine dependence, cigarettes, uncomplicated
CPT/HCPCS: 99282

== ENCOUNTER 2019-09-23 13:36 | Emergency (ER) | payer OTHER ==
--- OUTSIDE RECORDS SUMMARY | 2019-09-23 13:59 | XMS REPORT | Continuity of Care Document ---
:1985 External Reference #:[id number] Author Name Leandro Gagnon NP (transmitted by agent of provider Ellie Salamanca) Address [address] [facility], [place] [address] Care Team Providers Name Role Phone Destin Mayer M.D. - Family Medicine Care Team Information Anodize Machine Operator [phone] Jimmy Becker DO - Interventional Care Team Information Anodize Machine Operator Pain Medicine [facility] - Sleep Disorder Care Team Information Anodize Machine Operator [phone] Diagnostic Dwayne Fermin MD - Orthopaedic Care Team Information Anodize Machine Operator Surgery Milton Moreno MD - Otolaryngology Care Team Information Anodize Machine Operator Mars Snyder MD - Interventional Care Team Information Anodize Machine Operator Pain Medicine Belgica Cueto MD - Endocrinology, Care Team Information Anodize Machine Operator [phone] Diabetes & Metabolism Kamaljit Soria M.D. - Neurological Care Team Information Anodize Machine Operator Surgery Rosa Torres M.D. - Family Medicine Care Team Information Anodize Machine Operator [phone] Adal Mendieta MD - Endocrinology, Care Team Information Anodize Machine Operator [phone] Diabetes & Metabolism Nelson Schmid M.D. - Neurology Care Team Information Anodize Machine Operator [phone] Problems Active Problems Provider Date Congenital spondylolysis [...] - 14 ETOH Use Denies alcohol use Tobacco Use Start: Unknown Patient is a current smoker, smokes every day Recreational Drug Use Regularly uses uses for her Marijuana migraines, sleep, and dizzy spells. Tobacco Use Start: Unknown Light tobacco smoker (10 or fewer cigarettes/day) Smoking Status Reviewed: 09/15/19 Light tobacco smoker (10 or fewer cigarettes/day) Exercise Type/Frequency Exercises rarely Allergies, Adverse Reactions, Alerts Active Allergies Reaction Severity Comments Date Amoxicillin 03/27/2011 Ampicillin 03/27/2011 Biaxin 03/27/2011 Keflex 03/27/2011 Demerol 03/27/2011 Darvocet 03/27/2011 Toradol 03/27/2011 Ultram 03/27/2011 Bactrim 03/27/2011 Morphine 03/27/2011 Doxycycline 03/27/2011 Flexeril 03/27/2011 Skelaxin 03/27/2011 Miracle Whip, Ragu Sauce 03/27/2011 Depakote severe stomach pain Moderate 12/29/2013 Naproxen severe stomach pain 05/16/2019 Inactive Allergies Penicillin 03/27/2011 Medications Active Medications SIG Qnty Indications Ordering Date Provider Alprazolam take one tab by 30tabs G40.209 Kamaljit Mccoy 09/15/2019 0.25mg mouth at bedtime, Tima Florentino Tablets as needed for insomnia. mdd 1 Lamotrigine take one tab a day 140tabs Kamaljit Mccoy 09/07/2019 25mg for 1 week, then 1 Tima Florentino Tablets tabs twice a day for 1 wk, then 1 tabs in the morning and two tabs for 1 wk, then 2 tabs twice a day Sumatriptan Succinate take 1 tablet by 12tabs [...] 1units M54.5 Leatha Jenkins, 2012 fracture, kyphosis M.Thais [facility] E888.9 Omeprazole 1 by mouth every 30caps Maritza Del Cid M.D. 40mg Capsules DR grady History Medications Prednisone use as directed 1unalfred Faria 07/24/2019 - 5mg (21) Tima Don 08/22/2019 TBPK Amitriptyline HCL take 4 tabs by 120tabs G43.009 Kamaljit Mccoy 07/21/2019 - 10mg mouth at bedtime Tima Florentino 09/04/2019 Tablets Amitriptyline HCL take one tab po 120tabs [...] # [id number] Given 05/04/2013 Flu Vaccine NOS [id number] Given 10/27/2012 Tdap - Tetanus/Diptheria/Acellular Pertussis [id number] Vital Signs Date Vital Result Comment 09/15/2019 10:09am Height 69 inches 5'9" Weight 189.38 lb Heart Rate 52 /min BP Systolic Sitting 100 mmHg BP Diastolic Sitting 80 mmHg BMI (Body Mass Index) 28.0 kg/m2 09/07/2019 1:48pm Height 69 inches 5'9" Weight 195.00 lb Heart Rate 77 /min BP Systolic Sitting 113 mmHg Lue reg cuff BP Diastolic Sitting 72 mmHg Lue reg cuff O2 % BldC Oximetry 97 % BMI (Body Mass Index) 28.8 kg/m2 Results Test Acquired Date Facility Test Result H/L Range Note CBC Auto 09/08/2019 [facility] White Blood 5.4 10^3/uL Normal 3.5-10.[address] [place] [address] [phone] Red Blood Count 4.56 10^6/uL Normal 3.70-4.87 Hemoglobin 12.3 g/dL Normal 12.0-16.0 Hematocrit 37 % Normal 35-47 Mean Corpuscular Volume 81 fL Normal 80-97 Mean Corpuscular Hemoglobin 27 pg Normal 27-31 Mean Corpuscular HGB Conc 33 g/dL Normal 31-36 Red Cell Distribution Width 20 % High 10-15 Platelet Count 223 10^3/uL Normal 150-450 Mean Platelet Volume 10.1 fL Normal 7.4-10.4 Abs Neutrophils 3.4 10^3/uL Normal 1.5-7.7 Abs Lymphocytes 1.3 10^3/uL Normal 1.0-4.8 Abs Monocytes 0.4 10^3/uL Normal 0-0.8 Abs Eosinophils 0.3 10^3/uL Normal 0-0.6 Abs Basophils 0.1 10^3/uL Normal 0-0.2 Abs Nucleated RBC 0.0 10^3/uL Granulocyte % 62.7 % Lymphocyte % 23.2 % Monocyte % 8.2 % Eosinophil % 4.8 % Basophil % 1.1 % Nucleated Red Blood Cells % 0.1 Comp Metabolic 09/08/2019 [facility] Sodium 135 mmol/L Normal 135-[address] [place] [address] [phone] Potassium 4.1 mmol/L Normal 3.5-5.0 Chloride 104 mmol/L Normal 101-111 Co2 Carbon Dioxide 23 mmol/L Normal 22-32 Anion Gap 8 mmol/L Normal 2-11 Glucose 95 mg/dL Normal 70-100 Blood Urea Nitrogen 10 mg/dL Normal 6-24 Creatinine 0.80 mg/dL Normal 0.51-0.95 BUN/Creatinine Ratio 12.5 Normal 8-20 Calcium 9.2 mg/dL Normal 8.6-10.3 Total Protein 7.1 g/dL Normal 6.4-8.9 Albumin 4.5 g/dL Normal 3.2-5.2 Globulin 2.6 g/dL Normal 2-4 Albumin/Globulin Ratio 1.7 Normal 1-3 Total Bilirubin 0.90 mg/dL Normal 0.2-1.0 Alkaline Phosphatase 42 U/L Normal 34-104 Alt 11 U/L Normal 7-52 Ast 19 U/L Normal 13-39 Egfr Non- 82.6 >60 Egfr 100.0 >60 1 Laboratory test 09/08/2019 [facility] Hemoglobin A1c 5.2 % Normal 4.0-5.[address] (Glyco HGB) [place] [address] [phone] T3 Total 102 ng/dL Normal 87-178 Thyroxine 6.59 g/dL Normal 6.09-12.23 Thyroid 09/08/2019 [facility] Thyroid 2.06 Normal <[address] Peroxidase IU/[place] [address] Antibodies [phone] Thyroglobulin Antibody II 0.0 IU/mL <4.0 Tick-Borne 09/08/2019 [facility] Anaplasma <1:64 <1:64 3 Disease AB [address] phagocytophil[place] [address] [phone] Babesia microti IgG Ab, S <1:64 titer <1:64 4 Ehrlichia chaffeensis IgG AB <1:64 titer <1:64 5 Lyme Disease Serology Negative Negative 6 Laboratory test 09/08/2019 [facility] Erythrocyte Sed 5 mm/Hr Normal 0-[address] [place] [address] [phone] C Reactive Protein 4.18 mg/L Normal <8.01 Nuclear AB (Carmita) By Ifa Igg <1:80 (Negative) 7 FSH And LH 09/08/2019 [facility] FSH (Follicle Stim 6.4 mIU/mL [address] Hormone) [place] [address] [phone] LH (Lutenizing Hormone) 5.4 mIU/mL 9 Laboratory test finding 09/08/2019 [facility] Estradiol 45 pg/ mL 10 [address] [place] [address] [phone] Dhea Sulfate 60 g/dL 45-295 11 TSH (Thyroid Stim Horm) 1.30 mcIU/mL Normal 0.34-5.60 Testosterone Total < 10.00 ng/dL Normal 8-60 Acth 17 pg/mL 12 Insulin-Like Growth 09/08/2019 [facility] Insulin like 166 ng/ mL 59-279 Factor 1 [address] [facility] [place] [address] I [phone] Igf1 Z-score 0.52 SD 13 Laboratory test 09/08/2019 [facility] Prolactin 24.5 ng/mL Normal 1.0-25.0 finding [address] [place] [address] [phone] Free T4 (Free Thyroxine) 0.87 ng/dL Normal 0.61-1.12 Sex Hormone Binding Globulin 34 nmol/L 14 Laboratory test 06/11/2019 [facility] Lactic Acid 0.9 mmol/L Normal 0.5-2.0 15 finding [address] [place] [address] [phone] Comp Metabolic 06/11/2019 [facility] Sodium 134 mmol/L Low 135 -145 Panel [address] [place] [address] [phone] Potassium 3.5 mmol/L Normal 3.5-5.0 Chloride 102 [...] Egfr Non- 73.0 >60 Egfr 88.4 >60 16 Laboratory test 06/11/2019 [facility] Magnesium 1.8 mg/dL Low 1.9-2.[address] [place] [address] [phone] Urinalysis 06/11/2019 [facility] Urine Color Yellow Profile [address] [place] [address] [phone] Urine Appearance Clear Urine Specific [place] 1.011 Normal 1.010-1.030 Urine pH 5.0 Normal 5-9 Urine Urobilinogen Negative Negative Urine Ketones Negative Negative Urine Protein Negative Negative Urine Leukocytes Negative Negative Urine Blood Negative Negative Urine Nitrite Negative Negative Urine Bilirubin Negative Negative Urine Glucose Negative Negative CBC Auto 06/11/2019 [facility] White Blood 9.6 10^3/uL Normal 3.5-10.[address] [place] [address] [phone] Red Blood Count 4.17 10^6/uL Normal 3.70-4.87 [...] % Nucleated Red Blood Cells % 0.0 Inr/Protime 06/11/2019 [facility] Inr 1.06 Normal 0.82-1.[address] [place] [address] [phone] Laboratory test 05/16/2019 [facility] Prolactin 19.7 Normal 1.0-25.[address] ng/[place] [address] [phone] TSH (Thyroid Stim Horm) 1.36 mcIU/mL Normal 0.34-5.60 Magnesium 1.9 mg/dL Normal 1.9-2.7 1 Because ethnic data is not always readily [...] 15-29 5 Kidney failure <15 (or dialysis) 2 Therapeutic target for the treatment of diabetes mellitus patients is <7% HBA1C, and in selective patients <6.0%. Please refer to [place] [employer] diabetic care guidelines for further information. 3 ADDITIONAL INFORMATION This test was developed using an analyte specific reagent. Its performance characteristics were determined by [facility] in a manner consistent with CLIA requirements. This test has not been cleared or approved by the U.S. Food and Drug Administration. 4 ADDITIONAL INFORMATION This test was developed using an analyte specific reagent. Its performance characteristics were determined by [facility] in a manner consistent with CLIA requirements. This test has not been cleared or approved by the U.S. Food and Drug Administration. 5 ADDITIONAL INFORMATION This test was developed using an analyte specific reagent. Its performance characteristics were determined by [facility] in a manner consistent with CLIA requirements. This test has not been cleared or approved by the U.S. Food and Drug Administration. 6 No evidence of antibodies to B. burgdorferi detected. False negative results may occur in recently infected patients (<=2 weeks) due to low or undetectable antibody levels to B. burgdorferi. If recent exposure is suspected, a second sample should be collected and tested in 2-4 weeks. Test Performed by: [facility] [place] [address] Wire Fence Erector: Robert Marshall M.D. Ph.D.; CLIA# [id number] 7 <1:80 (Negative) REFERENCE VALUE <1:80 (Negative) Test Performed by: [facility] [place] [address] Wire Fence Erector: Robert Marshall M.D. Ph.D.; CLIA# [id number] 8 Normally menstruating females - Follicular phase 3 - 9 - Mid-cycle peak 4 - 23 - Luteal phase 1 - 6 Postmenopausal females 16 - 114 9 Normally menstruating females - Follicular Phase 1 - 18 - Mid-Cycle Peak 24 - 105 - Luteal Phase 0.6 - 20 Postmenopausal females 15 - 62 10 Estradiols <40 pg/mL are sent to a reference lab for low range testing. Postmenopausal Females < 20 Ovulating females: by day in cycle relative to LH Peak Follicular phase - 12 10-50 - 4 60-200 Mid-cycle - 1 120-375 Luteal phase + 2 50-155 + 6 60-260 + 12 15-115 11 Test Performed by: [place] [address] Wire Fence Erector: Robert Marshall M.D. Ph.D.; CLIA# [id number] 12 REFERENCE VALUE 7.2-63 (a.m. collection) Test Performed by: [facility] [place] [address] Wire Fence Erector: Robert Marshall M.D. Ph.D.; CLIA# [id number] 13 REFERENCE VALUE -2.0 - +2.0 ADDITIONAL INFORMATION This test was developed and its performance characteristics determined by [facility] in a manner consistent with CLIA requirements. This test has not been cleared or approved by the U.S. Food and Drug Administration. Test Performed by: [facility] [place] [address] Wire Fence Erector: Robert Marshall M.D. Ph.D.; CLIA# [id number] 14 REFERENCE VALUE 18-144 (non-) Test Performed by: [place] [address] Wire Fence Erector: Robert Marshall M.D. Ph.D.; CLIA# [id number] 15 [facility] Severe Sepsis and Septic Shock Management Bundle Measure requires all lactic acids initially measuring >2.0 mmol/L be repeated. 16 Because ethnic data is not always readily [...] 15-29 5 Kidney failure <15 (or dialysis) 17 Standard intensity warfarin therapeutic range: 2.0-3.0 High intensity warfarin therapeutic range: 2.5-3.5 Procedures Date Code Description Status 08/15/2019 98307 Nerve Conduction 03-04 Studies Completed 08/15/2019 95355 Needle Electromyography Complete, Five Or More Muscles Completed Studied 07/10/2019 46694 EEG Recording Awake & Drowsy Completed 05/31/2019 14241 EEG Recording Awake & Drowsy Completed 06/24/2010 [id number] Mammogram Completed Medical Devices Description No Information Available Encounters Type Date Location Provider Dx Diagnosis Office Visit 09/07/2019 [facility] Internal Vanessa White M.D., R55 Syncope and 2:00p Medicine - [facility] FACP collapse G40.89 Other seizures G89.4 Chronic pain syndrome F17.210 Nicotine dependence, cigarettes, uncomplicated Office Visit 09/01/2019 11:30a [facility] Leandro Gagnon, R55 Syncope and ELECTRODE CLEANING MACHINE OPERATOR collapse G43.009 Migraine w/o aura, not intractable, w/o status migrainosus R53.83 Other fatigue Office Visit 08/29/2019 Tj Cuevas, S46.011D Strain of 1:15p Orthopedics at [facility]ia[facility] [place] rotator cuff of right shoulder, subs Office Visit 08/22/2019 [facility] Internal Edd Riggins G89.4 Chronic [facility] 3:[facility] ELECTRODE CLEANING MACHINE OPERATOR syndrome Office Visit 08/22/2019 Tj Cuevas, S46.011D Strain of 1:15p Orthopedics at [facility] maria[facility] [place] rotator cuff of right shoulder, subs G56.21 Lesion of ulnar nerve, right upper limb G56.22 Lesion of ulnar nerve, left upper limb Office Visit 08/07/2019 Tj Faria M75.41 Impingement 1:30p Orthopedics at [place], M.D. syndrome of right [place] shoulder S46.011A Strain of musc/tend the rotator cuff of right shoulder, init M25.511 Pain in right shoulder Office Visit 07/24/2019 2:45p [facility] Tory Weathers, M25.511 Pain in right at [place] RPA-C shoulder S46.011A Strain of musc/tend the rotator cuff of right shoulder, init M75.41 Impingement syndrome of right shoulder Office Visit 07/21/2019 [facility] Le[facility] Gagnon, G43.009 Migraine w/o 11:00a Clinic ELECTRODE CLEANING MACHINE OPERATOR aura, not intractable, w/o status migrainosus R55 Syncope and collapse F07.81 Postconcussional syndrome Office Visit 07/19/2019 11:15a [facility] Damon S46.011D Strain of at Lidia Cuevas MD musc/tend the rotator cuff of right shoulder, subs G56.01 Carpal tunnel syndrome, right upper limb G56.21 Lesion of ulnar nerve, right upper limb Office Visit 06/28/2019 [facility] Le[facility] Gagnon, R56.9 Unspecified 3:00p Clinic ELECTRODE CLEANING MACHINE OPERATOR convulsions G43.009 Migraine w/o aura, not intractable, w/o status migrainosus M54.2 Cervicalgia Office Visit 05/16/2019 2:40p [facility] Internal Maritza G40.89 Other seizures Medicine - Lorraine Dle Cid M.D. 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, not intractable, without status epilepticus 09/15/2019 Z79.899 Other group home (current) drug Leandro Gagnon NP therapy 09/07/2019 R55 Syncope and collapse Vanessa White M.D., FACP 09/07/2019 G40.89 Other seizures Vanessa White M.D., FACP 09/07/2019 G89.4 Chronic pain syndrome Vanessa White M.D., FACP 09/07/2019 F17.210 Nicotine dependence, cigarettes, Vanessa White M.D., FACP uncomplicated 09/06/2019 D35.2 Benign neoplasm of pituitary gland Adal Mendieta MD 09/01/2019 R55 Syncope and collapse Leandro Gagnon, JANETH 09/01/2019 G43.009 Migraine without aura, not Leandro Gagnon, ELECTRODE CLEANING MACHINE OPERATOR intractable, without status migrainosus 09/01/2019 R53.83 Other fatigue Leandro Gagnon NP 08/29/2019 S46.011D Strain of muscle(s) and tendon(s) of Damon Cuevas MD the rotator cuff of right shoulder, subsequent encounter 08/22/2019 G89.4 Chronic pain syndrome Edd Riggins Ida, ELECTRODE CLEANING MACHINE OPERATOR 08/22/2019 S46.011D Strain of muscle(s) and tendon(s) of Damon Cuevas MD the rotator cuff of right shoulder, subsequent encounter 08/22/2019 G56.21 Lesion of ulnar nerve, right upper Damon Cuevas MD limb 08/22/2019 G56.22 Lesion of ulnar nerve, left upper Damon Cuevas MD limb 08/15/2019 G56.21 Lesion of ulnar nerve, right upper Law Herrera MD limb 08/07/2019 M75.41 Impingement syndrome of right Giana Don M.D. shoulder 08/07/2019 S46.011A Strain of muscle(s) and tendon(s) of Giana Don M.D. the rotator cuff of right shoulder, initial encounter 08/07/2019 M25.511 Pain in right shoulder Giaan Don M.D. 07/27/2019 R55 Syncope and collapse Damon Cuevas MD 07/27/2019 M54.5 Low back pain Damon Cuevas MD 07/27/2019 R07.9 Chest pain, unspecified Damon Cuevas MD 07/24/2019 M25.511 Pain in right shoulder Tory Weathers, RPA-C 07/24/2019 S46.011A Strain of muscle(s) and tendon(s) of Tory Weathers RPA -C the rotator cuff of right shoulder, initial encounter 07/24/2019 M75.41 Impingement syndrome of right Tory Weathers, RPA-C shoulder 07/21/2019 G43.009 Migraine without aura, not Leandro Gagnon, ELECTRODE CLEANING MACHINE OPERATOR intractable, without status migrainosus 07/21/2019 R55 Syncope and collapse Leandro Gagnon ELECTRODE CLEANING MACHINE OPERATOR 07/21/2019 F07.81 Postconcussional syndrome Leandro Gagnon, ELECTRODE CLEANING MACHINE OPERATOR 07/19/2019 S46.011D Strain of muscle(s) and tendon(s) of Damon Cuevas MD the rotator cuff of right shoulder, subsequent encounter 07/19/2019 G56.01 Carpal tunnel syndrome, right upper Damon Cuevas MD limb 07/19/2019 G56.21 Lesion of ulnar nerve, right upper Damon Cuevas MD limb 07/10/2019 R56.9 Unspecified convulsions Kamaljit Florentino M.D. 06/28/2019 R56.9 Unspecified convulsions Leandro Gagnon, ELECTRODE CLEANING MACHINE OPERATOR 06/28/2019 G43.009 Migraine without aura, not Leandro Gagnon NP intractable, without status migrainosus 06/28/2019 M54.2 Cervicalgia Leandro Gagnon NP 05/31/2019 R56.9 Unspecified convulsions Law Herrera MD 05/16/2019 G40.89 Other seizures Maritza Del Cid M.D. 05/16/2019 D35.2 Benign neoplasm of pituitary gland Maritza Del Cid M.D. 05/16/2019 Z72.0 Tobacco use Maritza Del Cid M.D. 05/16/2019 G50.1 Atypical facial pain Maritza Del Cid M.D. Plan of Treatment Future Appointment(s):10/20/2019 11:30 am - Leandor Gagnon NP at [facility] Fbrmaw9309/25/2019 3:20 pm - Darren Clemens MD at [facility] Internal Medicine - [address]/2020 10:30 am - Nurse Visit cc at [facility]09/19/2019 12:00 pm - Nurse Visit cc at [facility]12/11/2019 9:00 am - Damon Cuevas MD at [facility] at Oihrpr9911/22/2019 9:30 am - Damon Cuevas MD at [facility] at [id number]/24/2019 11:00 am - Damon Cuevas MD at [facility] at [id number]/13/2019 7:30 am - Damon Cuevas MD at [facility] at Hgnlwz3409/15/2019 - Leandro Gagnon NPG40.209 Localization-related ( focal) (partial) symptomatic epilepsy and epileptic syndromes with complex partial seizures, not intractable, without status epilepticusNew Medication: Alprazolam 0.25 mg - take one tab by mouth at bedtime, as needed for insomnia. mdd 1Referral:Darren Clemens MD, HospitalistFollow up:ONE MONTHRecommendations: Continue Lamotrigine. Continue to not drive for six months since last seizure.Z79.899 Other group home (current) drug therapy Functional Status Description No Information Available Mental Status Description No Information Available Referrals Refer to Reason for Referral Status Appt Date Darren Clemens MD Needs to establish care with a PCP to be cleared Created for upcoming dental and shoulder surgery. [address] [place] [address] [place] [id number] [phone] Milton Cai MD Previous patient; describes syncopal events, Sent lightheadedness, dizziness [address] [facility] [address] [place] [address] [phone] Adal Mendieta MD Patient Notified 09/06/[address] [place] [address] [phone] Nelson Schmid M.D. Sent 06/28/2019 [address] [place] [address] [place] [id number] [phone]
--- OUTSIDE RECORDS SUMMARY | 2019-09-23 13:59 | XMS REPORT | Continuity of Care Document ---
:1985 External Reference #:[id number] Author Name Damon Cuevas MD (transmitted by agent of provider Theron Rader) Address [address] [place] [address] Care Team Providers Name Role Phone Destin Mayer M.D. - Family Medicine Care Team Information Helicopter Specialist [phone] Jimmy Becker DO - Interventional Care Team Information Helicopter Specialist Pain Medicine [facility] Sleep Clinic - Sleep Disorder Care Team Information Helicopter Specialist Diagnostic Dwayne Fermin MD - Orthopaedic Care Team Information Helicopter Specialist [phone] Surgery Milton Moreno MD - Otolaryngology Care Team Information Helicopter Specialist Mars Snyder MD - Interventional Care Team Information Helicopter Specialist Pain Medicine Belgica Cueto MD - Endocrinology, Care Team Information Helicopter Specialist Diabetes & Metabolism Kamaljit Soria M.D. - Neurological Care Team Information Helicopter Specialist Surgery Rosa Torres M.D. - Family Medicine Care Team Information Helicopter Specialist [phone] Adal Mendieta MD - Endocrinology, Care Team Information Helicopter Specialist [phone] Diabetes & Metabolism Nelson Schmid M.D. - Neurology Care Team Information Helicopter Specialist Problems Active Problems Provider Date Congenital spondylolysis [...] (10 or fewer cigarettes/day) Smoking Status Reviewed: 08/29/19 Light tobacco smoker (10 or fewer cigarettes/day) [...] M54.5 Leatha Jenkins, 2012 fracture, kyphosis [facility] E888.9 Clindamycin HCL 1 tab by mouth [...] 20tabs G50.1 Maritza 05/16/2019 - 15mg Tablets day Tima Del Cid 06/27/2019 Medications Administered in Office Medication SIG Qnty Indications Ordering Provider Date Records Fee Damon Cuevas MD 07/27/2019 Injection Triamcinolone (Kenalog) Jourdan Workman MD 02/23/2017 Injection Immunizations CPT Code Status Date Vaccine Lot # [id number] Given 05/04/2013 Flu Vaccine NOS [id number] Given 10/27/2012 Tdap - Tetanus/Diptheria/Acellular Pertussis [id number] Vital Signs Date Vital Result Comment 08/29/2019 1:12pm Height 69 inches 5'9" Weight 190.00 lb Heart Rate 76 /min BP Systolic 112 mmHg BP Diastolic 78 mmHg Respiratory Rate 18 /min Pain Level 8 O2 % BldC Oximetry 98 % BMI (Body Mass Index) 28.1 kg/m2 08/22/2019 3:12pm Height 69 inches 5'9" Weight 190.00 lb Heart Rate 67 /min BP Systolic Sitting 119 mmHg BP Diastolic Sitting 80 mmHg BMI (Body Mass Index) 28.1 kg/m2 Results Test Acquired Date Facility Test Result H/L Range Note Inr/Protime 06/11/2019 [facility] Inr 1.06 Normal 0.82-1.[address] [place] [address] [phone] CBC Auto 06/11/2019 [facility] White Blood 9.6 10^3/uL Normal 3.5-10.8 Diff [address] [place] [address] [phone] Red Blood Count 4.17 10^6/uL Normal 3.70-4.87 [...] Blood Cells % 0.0 Laboratory test 06/11/2019 [facility] Lactic Acid 0.9 mmol/L Normal 0.5-2.0 2 finding [address] [place] [address] [phone] Comp Metabolic 06/11/2019 [facility] Sodium 134 mmol/L Low 135 -145 Panel [address] [place] [address] [phone] Potassium 3.5 mmol/L Normal 3.5-5.0 Chloride 102 [...] Egfr 88.4 >60 3 Laboratory test 06/11/2019 [facility] Magnesium 1.8 mg/dL Low 1.9-2.7 finding [address] [place] [address] [phone] Urinalysis 06/11/2019 [facility] Urine Color Yellow Profile [address] [place] [address] [phone] Urine Appearance Clear Urine Specific [place] 1.011 Normal 1.010-1.030 Urine pH 5.0 Normal 5-9 Urine Urobilinogen Negative Negative Urine Ketones Negative Negative Urine Protein Negative Negative Urine Leukocytes Negative Negative Urine Blood Negative Negative Urine Nitrite Negative Negative Urine Bilirubin Negative Negative Urine Glucose Negative Negative Laboratory test 05/16/2019 [facility] Prolactin 19.7 ng/mL Normal 1.0-25.0 finding [address] [place] [address] [phone] TSH (Thyroid Stim Horm) 1.36 mcIU/mL Normal 0.34-5.60 Magnesium 1.9 mg/dL Normal 1.9-2.7 1 Standard intensity warfarin therapeutic range: 2.0-3.0 High intensity warfarin therapeutic range: 2.5-3.[address] [facility] Severe Sepsis and Septic Shock Management [...] dialysis) Procedures Date Code Description Status 07/10/2019 34648 EEG Recording Awake & Drowsy Completed 05/31/2019 49807 EEG Recording Awake & Drowsy Completed 06/24/2010 [id number] Mammogram Completed Medical Devices Description No Information Available Encounters Type Date Location Provider Dx Diagnosis Office Visit 08/22/2019 Lead [employer] Internal Bagum Gilson G89.4 Chronic pain 3:00p Medicine - Lorraine Prieto NP syndrome Office Visit 08/07/2019 [facility] Giana Don, M75.41 Impingement 1:30p at [place] M.DRona syndrome of right shoulder S46.011A Strain of musc/tend the rotator cuff of right shoulder, init M25.511 Pain in right shoulder Office Visit 07/24/2019 2:45p [facility] Tory Weathers, M25.511 Pain in right at [facility] shoulder S46.011A Strain of musc/tend the rotator cuff of right shoulder, init M75.41 Impingement syndrome of right shoulder Office Visit 07/21/2019 [facility] Leandro Gagnon, G43.009 Migraine w/o 11:00a Clinic [facility] aura, not intractable, w/o status migrainosus R55 Syncope and collapse F07.81 Postconcussional syndrome Office Visit 07/19/2019 11:15a [facility] Damon S46.011D Strain of at Lidia Cuevas MD musc/tend the rotator cuff of right shoulder, subs G56.01 Carpal tunnel syndrome, right upper limb G56.21 Lesion of ulnar nerve, right upper limb Office Visit 06/28/2019 [facility] Le[facility] Gagnon, R56.9 Unspecified 3:00p Clinic [facility] convulsions G43.009 Migraine w/o aura, not intractable, w/o status migrainosus M54.2 Cervicalgia Office Visit 05/16/2019 2:40p [facility] Internal Maritza G40.89 Other seizures Medicine - Lorraine Del Cid M.D. D35.2 Benign neoplasm of pituitary gland Z72.0 Tobacco use G50.1 Atypical facial pain Assessments Date Code Description Provider 08/29/2019 S46.011D Strain of muscle(s) and tendon(s) of Damon Cuevas MD the rotator cuff of right shoulder, subsequent encounter 08/22/2019 G89.4 Chronic pain syndrome Edd Prieto NP 08/22/2019 S46.011D Strain of muscle(s) and tendon(s) [...] muscle(s) and tendon(s) of Tory Weathers, RPA ElaineC the rotator cuff of right shoulder, initial encounter 07/24/2019 M75.41 Impingement syndrome of right Tory Weathers, RPA-C shoulder 07/21/2019 G43.009 Migraine without aura, not Leandro Gagnon NP intractable, without status migrainosus 07/21/2019 R55 Syncope and collapse Leandro Gagnon NP 07/21/2019 F07.81 Postconcussional syndrome Leandrofarooq Gagnon, LEAD P[employer] RIDER 07/19/2019 S46.011D Strain of muscle(s) and tendon(s) of Damon Cuevas MD the rotator cuff of right shoulder, subsequent encounter 07/19/2019 G56.01 Carpal tunnel syndrome, right upper Damon Cuevas MD limb 07/19/2019 G56.21 Lesion of ulnar nerve, right upper Damon Cuevas MD limb 07/10/2019 R56.9 Unspecified convulsions Kamaljit Florentino M.D. 06/28/2019 R56.9 Unspecified convulsions Leandro Gagnon, LEAD PONY RIDER 06/28/2019 G43.009 Migraine without aura, not Leandrofarooq Gagnon, LEAD P[employer] RIDER intractable, without status migrainosus 06/28/2019 M54.2 Cervicalgia Leandro Gagnon, LEAD PONY RIDER 05/31/2019 R56.9 Unspecified convulsions Law Herrera MD 05/16/2019 G40.89 Other seizures Maritza Del Cid M.D. 05/16/2019 D35.2 Benign neoplasm of pituitary gland Maritza Del Cid M.D. 05/16/2019 Z72.0 Tobacco use Maritza Del Cid M.D. 05/16/2019 G50.1 Atypical facial pain Maritza Del Cid M.D. Plan of Treatment Future Appointment(s):10/24/2019 11:00 am - Damon Cuevas MD at [facility] at Tfrbhu1511/13/2019 7:30 am - Damon Cuevas MD at [facility] at Joeewz7209/04/2019 11:15 am - Giana Don M.D. at [facility] at Dsypkv3308/29/2019 - Damon Cuevas MDS46.011D Strain of muscle(s ) and tendon(s) of the rotator cuff of right shoulder, subsequent encounterFollow up:Follow up: 7-10 days before surgery Functional Status Description No Information Available Mental Status Description No Information Available Referrals Refer to Reason for Referral Status Appt Date Milton Cai MD Previous patient; describes syncopal events, Sent 00 /0000 lightheadedness, dizziness [address] [facility] [place] [id number] [phone] Adal Mendieta MD Patient Notified 09/06/[address] [place] [address] [phone] Nelson Schmid M.D. Sent 06/28/2019 [address] [facility] [place] [address] [place] [address] [phone]
--- OUTSIDE RECORDS SUMMARY | 2019-09-23 13:59 | XMS REPORT | Continuity of Care Document ---
:1985 External Reference #:[id number] Author Name Nurse Visit cc (transmitted by agent of provider Cat Moeller) Address [address] [place] [address] Care Team Providers Name Role Phone Destin Mayer M.D. - Family Medicine Care Team Information Forest Fire Prevention Manager Jimmy Becker DO - Interventional Care Team Information Forest Fire Prevention Manager [phone] Pain Medicine [facility] Sleep Clinic - Sleep Disorder Care Team Information Forest Fire Prevention Manager Diagnostic Dwayne Fermin MD - Orthopaedic Care Team Information Forest Fire Prevention Manager Surgery Milton Moreno MD - Otolaryngology Care Team Information Forest Fire Prevention Manager [phone] Mars Snyder MD - Interventional Care Team Information Forest Fire Prevention Manager Pain Medicine Belgica Cueto MD - Endocrinology, Care Team Information Forest Fire Prevention Manager Diabetes & Metabolism Kamaljit Soria M.D. - Neurological Care Team Information Forest Fire Prevention Manager [phone] Surgery Rosa Torres M.D. - Family Medicine Care Team Information Forest Fire Prevention Manager Adal Mendieta MD - Endocrinology, Care Team Information Forest Fire Prevention Manager Diabetes & Metabolism Nelson Schmid M.D. - Neurology Care Team Information Forest Fire Prevention Manager Problems Active Problems Provider Date Congenital spondylolysis [...] M54.5 Leatha Jenkins, 2012 fracture, kyphosis [facility] E888.9 Omeprazole 1 by mouth every 30caps [...] # [id number] Given 05/04/2013 Flu Vaccine NOS 04855 Given 10/27/2012 Tdap - Tetanus/Diptheria/Acellular Pertussis [id number] Vital Signs Date Vital Result Comment 09/15/2019 [...] Result H/L Range Note CBC Auto 09/08/2019 [facility] White Blood 5.4 10^3/uL Normal 3.5-10.[address] [place] [address] [phone] Red Blood Count 4.56 10^6/uL Normal 3.70-4.87 [...] Blood Cells % 0.1 Comp Metabolic 09/08/2019 [facility] Sodium 135 mmol/L Normal 135-[address] [place] [address] [phone] Potassium 4.1 mmol/L Normal 3.5-5.0 Chloride 104 [...] Egfr 100.0 >60 1 Laboratory test 09/08/2019 [facility] Hemoglobin A1c 5.2 % Normal 4.0-5.[address] (Glyco HGB) [place] [address] [phone] T3 Total 102 ng/dL Normal 87-178 Thyroxine 6.59 g/dL Normal 6.09-12.23 Thyroid 09/08/2019 [facility] Thyroid 2.06 Normal <[address] Peroxidase IU/[place] [address] Antibodies [phone] Thyroglobulin Antibody II 0.0 IU/mL <4.0 Tick-Borne 09/08/2019 [facility] Anaplasma <1:64 <1:64 3 Disease AB [address] [place] [address] [phone] Babesia microti IgG Ab, S <1:64 titer <1:64 4 Ehrlichia chaffeensis IgG AB <1:64 titer <1:64 5 Lyme Disease Serology Negative Negative 6 Laboratory test 09/08/2019 [facility] Erythrocyte Sed 5 mm/Hr Normal 0-[address] [place] [address] [phone] C Reactive Protein 4.18 mg/L Normal <8.01 Nuclear AB (Carmita) By Ifa Igg <1:80 (Negative) 7 FSH And LH 09/08/2019 [facility] FSH (Follicle Stim 6.4 mIU/mL [address] Hormone) [place] [address] [phone] LH (Lutenizing Hormone) 5.4 mIU/mL 9 Laboratory test finding 09/08/2019 [facility] Estradiol 45 pg/ mL 10 [address] [place] [address] [phone] Dhea Sulfate 60 g/dL 45-295 11 TSH (Thyroid Stim Horm) 1.30 mcIU/mL Normal 0.34-5.60 Testosterone Total < 10.00 ng/dL Normal 8-60 Acth 17 pg/mL 12 Insulin-Like Growth 09/08/2019 [facility] Insulin like 166 ng/ mL 59-[address] [facility] [place] [address] I [phone] Igf1 Z-score 0.52 SD 13 Laboratory test 09/08/2019 [facility] Prolactin 24.5 ng/mL Normal 1.0-25.0 finding [address] [place] [address] [phone] Free T4 (Free Thyroxine) 0.87 ng/dL Normal 0.61-1.12 Sex Hormone Binding Globulin 34 nmol/L 14 Laboratory test 06/11/2019 [facility] Lactic Acid 0.9 mmol/L Normal 0.5-2.0 15 finding [address] [place] [address] [phone] Comp Metabolic 06/11/2019 [facility] Sodium 134 mmol/L Low 135 -145 Panel [address] [place] [address] [phone] Potassium 3.5 mmol/L Normal 3.5-5.0 Chloride 102 [...] Egfr 88.4 >60 16 Laboratory test 06/11/2019 [facility] Magnesium 1.8 mg/dL Low 1.9-2.7 finding [address] [place] [address] [phone] Urinalysis 06/11/2019 [facility] Urine Color Yellow Profile [address] [place] [address] [phone] Urine Appearance Clear Urine Specific [place] 1.011 Normal 1.010-1.030 Urine pH 5.0 Normal 5-9 Urine Urobilinogen Negative Negative Urine Ketones Negative Negative Urine Protein Negative Negative Urine Leukocytes Negative Negative Urine Blood Negative Negative Urine Nitrite Negative Negative Urine Bilirubin Negative Negative Urine Glucose Negative Negative CBC Auto 06/11/2019 [facility] White Blood 9.6 10^3/uL Normal 3.5-10.8 Diff 101 [facility] [place] [address] [phone] Red Blood Count 4.17 10^6/uL Normal 3.70-4.87 [...] Red Blood Cells % 0.0 Inr/Protime 06/11/2019 [facility] Inr 1.06 Normal 0.82-1.[address] [place], [place] [address] [address] [phone] Laboratory test 05/16/2019 [facility] Prolactin 19.7 Normal 1.0-25.[address] ng/[place] [address] [phone] TSH (Thyroid Stim Horm) 1.36 mcIU/mL Normal [...] in selective patients <6.0%. Please refer to [place] [employer] diabetic care guidelines for further information. 3 ADDITIONAL INFORMATION This test was developed using an analyte specific reagent. Its performance characteristics were determined by [facility] in a manner consistent with CLIA requirements. This test has not been cleared or approved by the U.S. Food and Drug Administration. 4 ADDITIONAL INFORMATION This test was developed using an analyte specific reagent. Its performance characteristics were determined by [facility] in a manner consistent with CLIA requirements. This test has not been cleared or approved by the U.S. Food and Drug Administration. 5 ADDITIONAL INFORMATION This test was developed using an analyte specific reagent. Its performance characteristics were determined by [facility] in a manner consistent with CLIA requirements. [...] tested in 2-4 weeks. Test Performed by: [place] [address] Hr Systems Analyst: Robert Marshall M.D. Ph.D.; CLIA# [id number] 7 <1:80 (Negative) REFERENCE VALUE <1:80 (Negative) Test Performed by: [facility] [place] [address] Hr Systems Analyst: Robert Marshall M.D. Ph.D.; CLIA# [id number] 8 Normally menstruating females - Follicular phase [...] + 12 15-115 11 Test Performed by: [place] [address] Hr Systems Analyst: Robert Marshall M.D. Ph.D.; CLIA# [id number] 12 REFERENCE VALUE 7.2-63 (a.m. collection) Test Performed by: [facility] [place] [address] Hr Systems Analyst: Robert Marshall M.D. Ph.D.; CLIA# [id number] 13 REFERENCE VALUE -2.0 - +2.0 ADDITIONAL INFORMATION This test was developed and its performance characteristics determined by [facility] in a manner consistent with CLIA requirements. This test has not been cleared or approved by the U.S. Food and Drug Administration. Test Performed by: [facility] [place] [address] Hr Systems Analyst: Robert Marshall M.D. Ph.D.; CLIA# [id number] 14 REFERENCE VALUE 18-144 (non-) Test Performed by: [facility] [place] [address] Hr Systems Analyst: Robert Marshall M.D. Ph.D.; CLIA# [id number] 15 [facility] Severe Sepsis and Septic Shock Management [...] 2.5-3.5 Procedures Date Code Description Status 08/15/2019 21747 Nerve Conduction 03-04 Studies Completed 08/15/2019 67104 Needle Electromyography Complete, Five Or More Muscles Completed Studied 07/10/2019 78498 EEG Recording Awake & Drowsy Completed 05/31/2019 38343 EEG Recording Awake & Drowsy Completed 06/24/2010 [id number] Mammogram Completed Medical Devices Description No Information Available Encounters Type Date Location Provider Dx Diagnosis Office Visit 09/07/2019 [facility] Internal Vanessa White M.D., R55 Syncope and 2:00p Medicine - Ccmob FACP collapse G40.89 Other seizures G89.4 Chronic pain syndrome F17.210 Nicotine dependence, cigarettes, uncomplicated Office Visit 09/01/2019 11:30a [facility] Leandro Gagnon, R55 Syncope and ISOTOPE TECHNICIAN collapse G43.009 Migraine w/o aura, not intractable, w/o status migrainosus R53.83 Other fatigue Office Visit 08/29/2019 Tj Cuevas, S46.011D Strain of 1:15p Orthopedics at MD maria/gokul [facility] [place] rotator cuff of right shoulder, subs Office Visit 08/22/2019 [facility] Edd Schmidullah G89.4 Chronic pain 3:00p [facility] ISOTOPE TECHNICIAN syndrome Office Visit 08/22/2019 Tj Cuevas, S46.011D Strain of 1:15p Orthopedics at MD maria/gokul [facility] [place] rotator cuff of right shoulder, subs G56.21 Lesion of ulnar nerve, right upper limb G56.22 Lesion of ulnar nerve, left upper limb Office Visit 08/07/2019 Tj Faria M75.41 Impingement 1:30p Orthopedics at Tima Don syndrome of right [place] shoulder S46.011A Strain of musc/tend the rotator cuff of right shoulder, init M25.511 Pain in right shoulder Office Visit 07/24/2019 2:45p [facility] Tory Weathers, M25.511 Pain in right at [place] RPA-C shoulder S46.011A Strain of musc/tend the rotator cuff of right shoulder, init M75.41 Impingement syndrome of right shoulder Office Visit 07/21/2019 [facility] Leandro Gagnon, G43.009 Migraine w/o 11:00a Clinic ISOTOPE TECHNICIAN aura, not intractable, w/o status migrainosus R55 Syncope and collapse F07.81 Postconcussional syndrome Office Visit 07/19/2019 11:15a [facility] Damon S46.011D Strain of at Lidia Cuevas MD musc/tend the rotator cuff of right shoulder, subs G56.01 Carpal tunnel syndrome, right upper limb G56.21 Lesion of ulnar nerve, right upper limb Office Visit 06/28/2019 [facility] Le[facility] Gagnon, R56.9 Unspecified 3:00p Clinic ISOTOPE TECHNICIAN convulsions G43.009 Migraine w/o aura, not intractable, w/o status migrainosus M54.2 Cervicalgia Office Visit 05/16/2019 2:40p [facility] Internal Maritza G40.89 Other seizures Medicine - Lorraine Del Cid M.D. 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, not intractable, without status epilepticus 09/15/2019 Z79.899 Other peer support specialist (current) drug Leandro Gagnon NP therapy 09/07/2019 R55 Syncope and collapse Vanessa White M.D., FACP 09/07/2019 G40.89 Other seizures Vanessa White M.D., FACP 09/07/2019 G89.4 Chronic pain syndrome Vanessa White M.D., FACP 09/07/2019 F17.210 Nicotine dependence, cigarettes, Vanessa White M.D., FACP uncomplicated 09/06/2019 D35.2 Benign neoplasm of pituitary gland Adal Mendieta MD 09/01/2019 R55 Syncope and collapse Leandro Gagnon NP 09/01/2019 G43.009 Migraine without aura, not Leandro Gagnon, ISOTOPE TECHNICIAN intractable, without status migrainosus 09/01/2019 R53.83 Other fatigue Leandro Gagnon NP 08/29/2019 S46.011D Strain of muscle(s) and tendon(s) of Damon Cuevas MD the rotator cuff of right shoulder, subsequent encounter 08/22/2019 G89.4 Chronic pain syndrome Edd Allenkunal Prieto, JANETH 08/22/2019 S46.011D Strain of muscle(s) and tendon(s) [...] Strain of muscle(s) and tendon(s) of Tory Sarahy, RPA -C the rotator cuff of right shoulder, initial encounter 07/24/2019 M75.41 Impingement syndrome of right Tory Weathers, RPA-C shoulder 07/21/2019 G43.009 Migraine without aura, not Leandro Gagnon ISOTOPE TECHNICIAN intractable, without status migrainosus 07/21/2019 R55 Syncope and collapse Leandro Gganon NP 07/21/2019 F07.81 Postconcussional syndrome Leandro Gagnon, JANETH 07/19/2019 S46.011D Strain of muscle(s) and tendon(s) of Damon Cuevas MD the rotator cuff of right shoulder, subsequent encounter 07/19/2019 G56.01 Carpal tunnel syndrome, right upper Damon Cuevas MD limb 07/19/2019 G56.21 Lesion of ulnar nerve, right upper Damon Cuevas MD limb 07/10/2019 R56.9 Unspecified convulsions Kaamljit Florentino M.D. 06/28/2019 R56.9 Unspecified convulsions Leandro Gagnon, JANETH 06/28/2019 G43.009 Migraine without aura, not Leandro [...] of Treatment Future Appointment(s):10/20/2019 11:30 am - Leandro Gagnon NP at [facility] Tqynqh8509/25/2019 3:20 pm - Darren Clemens MD at [facility] Internal Medicine - [address]/2020 10:30 am - Nurse Visit cc at [facility]12/11/2019 9:00 am - Damon Cuevas MD at [facility] at Mifwoj1711/22/2019 9:30 am - Damon Cuevas MD at [facility] at Ydavvd5810/24/2019 11:00 am - Damon Cuevas MD at [facility] at Gtcgpb4511/13/2019 7:30 am - Damon Cuevas MD at [facility] at Eodcol3009/15/2019 - Leandro Gagnon NPG40.209 Localization- related (focal) (partial) symptomatic epilepsy and epileptic syndromes with complex partial seizures, not intractable, without status epilepticusNew Medication:Alprazolam 0.25 mg - take one tab by mouth at bedtime, as needed for insomnia. mdd 1Referral:Darren Clemens MD, HospitalistFollow up:ONE MONTHRecommendations:Continue Lamotrigine. Continue to not drive for six months since last seizure.Z79.899 Other fpc (current) drug therapy Functional Status Description No Information Available Mental Status Description No Information Available Referrals Refer to Dr Reason for Referral Status Appt Date Darren Clemens MD Needs to establish care with a PCP to be cleared Created for upcoming dental and shoulder surgery. [address] [place] [address] [place] [address] [phone] Milton Cai MD Previous patient; describes syncopal events, Sent lightheadedness, dizziness [address] [place] [address] [phone] Adal Mendieta MD Patient Notified 09/06/[address] [place] [address] [phone] Nelson Schmid M.D. Sent 06/28/2019 [address] [facility] [place] [address] [place] [address] [phone]
--- OUTSIDE RECORDS SUMMARY | 2019-09-23 13:59 | XMS REPORT | Continuity of Care Document ---
:1985 External Reference #:[id number] Author Name Leandro Gagnon NP (transmitted by [facility] Address [address], [address] [place] [id number] Care Team Providers Name Role Phone Destin Mayer M.D. - Family Medicine Care Team Information Dairy Scientist Jimmy Becker DO - Interventional Care Team Information Dairy Scientist [phone] Pain Medicine [facility] - Sleep Disorder Care Team Information Dairy Scientist [phone] Diagnostic Dwayne Fermin MD - Orthopaedic Care Team Information Dairy Scientist Surgery Milton Moreno MD - Otolaryngology Care Team Information Dairy Scientist Mars Snyder MD - Interventional Care Team Information Dairy Scientist [phone] Pain Medicine Belgica Cueto MD - Endocrinology, Care Team Information Dairy Scientist Diabetes & Metabolism Kamaljit Soria M.D. - Neurological Care Team Information Dairy Scientist [phone] Surgery Rosa Torres M.D. - Family Medicine Care Team Information Dairy Scientist Adal Mendieta MD - Endocrinology, Care Team Information Dairy Scientist [phone] Diabetes & Metabolism Nelson Schmid M.D. - Neurology Care Team Information Dairy Scientist Problems Active Problems Provider Date Congenital spondylolysis [...] (10 or fewer cigarettes/day) Smoking Status Reviewed: 09/01/19 Light tobacco smoker (10 or fewer cigarettes/day) [...] Walker/Adult/Folding dx: h/o vertebral 1units M54.5 Leatha Gregory, 2012 fracture, kyphosis [facility] E888.9 Tizanidine HCL take 1 tablet by 90tabs Maritza Nehemias, 4mg Tablets mouth every 8 hours M.DRona as needed Omeprazole 1 by mouth every 30caps Maritza Nehemias, 40mg Capsules DR grady Alfred Azithromycin 2 the first day, 1 Unknown 250mg Tablets tab for 5 days History Medications Prednisone use as directed 1unalfred [...] # [id number] Given 05/04/2013 Flu Vaccine NOS 74120 Given 10/27/2012 Tdap - Tetanus/Diptheria/Acellular Pertussis [id number] Vital Signs Date Vital Result Comment 09/01/2019 11:44am Height 69 inches 5'9" Weight 200.00 lb Heart Rate 66 /min BP Systolic 120 mmHg BP Diastolic 72 mmHg BMI (Body Mass Index) 29.5 kg/m2 08/29/2019 1:12pm Height 69 inches 5'9" Weight 190.00 lb Heart Rate 76 /min BP Systolic 112 mmHg BP Diastolic 78 mmHg Respiratory Rate 18 /min Pain Level 8 O2 % BldC Oximetry 98 % BMI (Body Mass Index) 28.1 kg/m2 Results Test Acquired Date Facility Test Result H/L Range Note Inr/Protime 06/11/2019 [facility] Inr 1.06 Normal 0.82-1.09 1 [address] [place] [address] [phone] CBC Auto 06/11/2019 [facility] White Blood 9.6 10^3/uL Normal 3.5-10.8 Diff [address] [facility] [place] [address] [phone] Red Blood Count 4.17 10^6/uL Normal 3.70-4.87 [...] Blood Cells % 0.0 Laboratory test 06/11/2019 [facility] Lactic Acid 0.9 mmol/L Normal 0.5-2.0 2 finding [address] [place] [address] [phone] Comp Metabolic 06/11/2019 [facility] Sodium 134 mmol/L Low 135 -145 Panel [address] [place] [address] [phone] Potassium 3.5 mmol/L Normal 3.5-5.0 Chloride 102 [...] Egfr 88.4 >60 3 Laboratory test 06/11/2019 [facility] Magnesium 1.8 mg/dL Low 1.9-2.7 finding [address] [place] [address] [phone] Urinalysis 06/11/2019 [facility] Urine Color Yellow Profile [address] [place] [address] [phone] Urine Appearance Clear Urine Specific [place] 1.011 Normal 1.010-1.030 Urine pH 5.0 Normal 5-9 Urine Urobilinogen Negative Negative Urine Ketones Negative Negative Urine Protein Negative Negative Urine Leukocytes Negative Negative Urine Blood Negative Negative Urine Nitrite Negative Negative Urine Bilirubin Negative Negative Urine Glucose Negative Negative Laboratory test 05/16/2019 [facility] Prolactin 19.7 ng/mL Normal 1.0-25.0 finding [address] [place] [address] [phone] TSH (Thyroid Stim Horm) 1.36 mcIU/mL Normal 0.34-5.60 Magnesium 1.9 mg/dL Normal 1.9-2.7 1 Standard intensity warfarin therapeutic range: 2.0-3.0 High intensity warfarin therapeutic range: 2.5-3.5 2 [place] Severe Sepsis and Septic Shock Management Bundle [...] dialysis) Procedures Date Code Description Status 07/10/2019 15821 EEG Recording Awake & Drowsy Completed 05/31/2019 83316 EEG Recording Awake & Drowsy Completed 06/24/2010 [id number] Mammogram Completed Medical Devices Description No Information Available Encounters Type Date Location Provider Dx Diagnosis Office Visit 08/22/2019 [facility] Bagum Gilson G89.4 Chronic pain 3:00p Medicine - Lorraine Prieto NP syndrome Office Visit 08/22/2019 [facility] Damon Cuevas S46.011D Strain of 1:15p at [place] musc/tend the rotator cuff of right shoulder, subs G56.21 Lesion of ulnar nerve, right upper limb G56.22 Lesion of ulnar nerve, left upper limb Office Visit 08/07/2019 [facility] M75.41 Impingement 1:30p Orthopedics at [place] syndrome of right [place] shoulder S46.011A Strain of musc/tend the rotator cuff of right shoulder, init M25.511 Pain in right shoulder Office Visit 07/24/2019 2:45p [facility] Tory Weathers, M25.511 Pain in right at [place] RPA-C shoulder S46.011A Strain of musc/tend the rotator cuff of right shoulder, init M75.41 Impingement syndrome of right shoulder Office Visit 07/21/2019 [facility] Le[facility] Gagnon, G43.009 Migraine w/o 11:00a Clinic BENCH JEWELER aura, not intractable, w/o status migrainosus R55 Syncope and collapse F07.81 Postconcussional syndrome Office Visit 07/19/2019 11:15a [facility] Damon S46.011D Strain of at [place] Cuevas, MD musc/tend the rotator cuff of right shoulder, subs G56.01 Carpal tunnel syndrome, right upper limb G56.21 Lesion of ulnar nerve, right upper limb Office Visit 06/28/2019 [facility]agn[facility], R56.9 Unspecified 3:00p Clinic [facility] convulsions G43.009 Migraine w/o aura, not intractable, w/o status migrainosus M54.2 Cervicalgia Office Visit 05/16/2019 2:40p [facility] Maritza G40.89 Other seizures Medicine - Lorraine Del Cid M.D. D35.2 Benign neoplasm of pituitary gland Z72.0 Tobacco use G50.1 Atypical facial pain Assessments Date Code Description Provider 09/01/2019 R55 Syncope and collapse Leandro Gagnon, JANETH 09/01/2019 G43.009 Migraine without aura, not Leandro Gagnon NP intractable, without status migrainosus 08/29/2019 S46.011D Strain of muscle(s) and tendon(s) of Damon Cuevas MD the rotator cuff of right shoulder, subsequent encounter 08/22/2019 G89.4 Chronic pain syndrome Edd Prieto, BENCH JEWELER 08/22/2019 S46.011D Strain of muscle(s) and tendon(s) [...] G43.009 Migraine without aura, not Leandro Gagnon, BENCH JEWELER intractable, without status migrainosus 07/21/2019 R55 Syncope and collapse Leandro Gagnon, BENCH JEWELER 07/21/2019 F07.81 Postconcussional syndrome Leandro Gagnon, BENCH JEWELER 07/19/2019 S46.011D Strain of muscle(s) and tendon(s) of Damon Cuevas MD the rotator cuff of right shoulder, subsequent encounter 07/19/2019 G56.01 Carpal tunnel syndrome, right upper Damon Cuevas MD limb 07/19/2019 G56.21 Lesion of ulnar nerve, right upper Damon Cuevas MD limb 07/10/2019 R56.9 Unspecified convulsions Kamaljit Florentino M.D. 06/28/2019 R56.9 Unspecified convulsions Leandro Gagnon NP 06/28/2019 G43.009 Migraine without aura, not Leandro Gagnon, BENCH JEWELER intractable, without status migrainosus 06/28/2019 M54.2 Cervicalgia Leandro Gagnon NP 05/31/2019 R56.9 Unspecified convulsions Law Herrera MD 05/16/2019 G40.89 Other seizures Maritza Del Cid M.D. 05/16/2019 D35.2 Benign neoplasm of pituitary gland Maritza Del Cid M.D. 05/16/2019 Z72.0 Tobacco use Maritza Del Cid M.D. 05/16/2019 G50.1 Atypical facial pain Maritza Del Cid M.D. Plan of Treatment Future Appointment(s):10/13/2019 1:30 pm [facility] 9:00 am - Damon Cuevas MD at [facility] at Noayss76 9:30 am - Damon Cuevas MD at [facility] at [id number] 11:00 am - Damon Cuevas MD at [facility] at Wwsruf0011/13/2019 7: 30 am - Damon Cuevas MD at [facility] at Clceyy3509/01/2019 - Leandro Gagnon, NPR55 Syncope and collapseFollow up:ONE JEFBON77.009 Migraine without aura, not intractable, without status migrainosus Functional Status Description No Information Available Mental Status Description No Information Available Referrals Refer to Reason for Referral Status Appt Date Milton Cai MD Previous patient; describes syncopal events, Sent lightheadedness, dizziness [address] [facility] 4[address] [place] [address] [phone] Adal Mendieta MD Patient Notified 09/06/[address] [place] [address] [phone] Nelson Schmid M.D. Sent 06/28/2019 [address] [place] [address] [place] [address] [phone]
--- OUTSIDE RECORDS SUMMARY | 2019-09-23 13:59 | XMS REPORT | Continuity of Care Document ---
:1985 External Reference #:[id number] Author Name Nurse Visit cc (transmitted by agent of provider Hyun Sewell) Address [address] [place] [address] Care Team Providers Name Role Phone Destin Mayer M.D. - Family Medicine Care Team Information Housekeeping Supervisor Jimmy Becekr DO - Interventional Care Team Information Housekeeping Supervisor Pain Medicine [facility] - Sleep Disorder Care Team Information Housekeeping Supervisor Diagnostic Dwayne Fermin MD - Orthopaedic Care Team Information Housekeeping Supervisor [phone] Surgery Milton Moreno MD - Otolaryngology Care Team Information Housekeeping Supervisor [phone] Mars Snyder MD - Interventional Care Team Information Housekeeping Supervisor Pain Medicine Belgica Cueto MD - Endocrinology, Care Team Information Housekeeping Supervisor Diabetes & Metabolism Kamaljit Soria M.D. - Neurological Care Team Information Housekeeping Supervisor Surgery Rosa Torres M.D. - Family Medicine Care Team Information Housekeeping Supervisor Adal Mendieta MD - Endocrinology, Care Team Information Housekeeping Supervisor [phone] Diabetes & Metabolism Nelson Schmid M.D. - Neurology Care Team Information Housekeeping Supervisor Problems Active Problems Provider Date Congenital spondylolysis [...] 2012 fracture, kyphosis M.DRona [facility] E888.9 Omeprazole 1 by mouth every 30caps [...] # Q2039 Given 05/04/2013 Flu Vaccine NOS 66026 Given 10/27/2012 Tdap - Tetanus/Diptheria/Acellular Pertussis [id number] Vital Signs Date Vital Result Comment 09/15/2019 [...] Result H/L Range Note CBC Auto 09/08/2019 [facility] White Blood 5.4 10^3/uL Normal 3.5-10.[address] [place] [address] [phone] Red Blood Count 4.56 10^6/uL Normal 3.70-4.87 [...] Blood Cells % 0.1 Comp Metabolic 09/08/2019 [facility] Sodium 135 mmol/L Normal 135-[address] [place] [address] [phone] Potassium 4.1 mmol/L Normal 3.5-5.0 Chloride 104 [...] Egfr 100.0 >60 1 Laboratory test 09/08/2019 [facility] Hemoglobin A1c 5.2 % Normal 4.0-5.[address] (Glyco HGB) [place] [address] [phone] T3 Total 102 ng/dL Normal 87-178 Thyroxine 6.59 g/dL Normal 6.09-12.23 Thyroid 09/08/2019 [facility] Thyroid 2.06 Normal <[address] Peroxidase IU/[place] [address] Antibodies [phone] Thyroglobulin Antibody II 0.0 IU/mL <4.0 Tick-Borne 09/08/2019 [facility] Anaplasma <1:64 <1:64 3 Disease AB [address] [place] [address] [phone] Babesia microti IgG Ab, S <1:64 titer <1:64 4 Ehrlichia chaffeensis IgG AB <1:64 titer <1:64 5 Lyme Disease Serology Negative Negative 6 Laboratory test 09/08/2019 [facility] Erythrocyte Sed 5 mm/Hr Normal 0-[address] [place] [address] [phone] C Reactive Protein 4.18 mg/L Normal <8.01 Nuclear AB (Carmita) By Ifa Igg <1:80 (Negative) 7 FSH And LH 09/08/2019 [facility] FSH (Follicle Stim 6.4 mIU/mL [address] Hormone) [place] [address] [phone] LH (Lutenizing Hormone) 5.4 mIU/mL 9 Laboratory test finding 09/08/2019 [facility] Estradiol 45 pg/ mL 10 [address] [place] [address] [phone] Dhea Sulfate 60 g/dL 45-295 11 TSH (Thyroid Stim Horm) 1.30 mcIU/mL Normal 0.34-5.60 Testosterone Total < 10.00 ng/dL Normal 8-60 Acth 17 pg/mL 12 Insulin-Like Growth 09/08/2019 [facility] Insulin like 166 ng/ mL 59-[address] [facility] [place] [address] I [phone] Igf1 Z-score 0.52 SD 13 Laboratory test 09/08/2019 [facility] Prolactin 24.5 ng/mL Normal 1.0-25.0 finding [address] [place] [address] [phone] Free T4 (Free Thyroxine) 0.87 ng/dL Normal 0.61-1.12 Sex Hormone Binding Globulin 34 nmol/L 14 Laboratory test 06/11/2019 [facility] Lactic Acid 0.9 mmol/L Normal 0.5-2.0 15 finding [address] [place] [address] [phone] Comp Metabolic 06/11/2019 [facility] Sodium 134 mmol/L Low 135 -145 Panel [address] [place] [address] [phone] Potassium 3.5 mmol/L Normal 3.5-5.0 Chloride 102 [...] Egfr 88.4 >60 16 Laboratory test 06/11/2019 [facility] Magnesium 1.8 mg/dL Low 1.9-2.7 finding [address] [place] [address] [phone] Urinalysis 06/11/2019 [facility] Urine Color Yellow Profile [address] [place] [address] [phone] Urine Appearance Clear Urine Specific [place] 1.011 Normal 1.010-1.030 Urine pH 5.0 Normal 5-9 Urine Urobilinogen Negative Negative Urine Ketones Negative Negative Urine Protein Negative Negative Urine Leukocytes Negative Negative Urine Blood Negative Negative Urine Nitrite Negative Negative Urine Bilirubin Negative Negative Urine Glucose Negative Negative CBC Auto 06/11/2019 [facility] White Blood 9.6 10^3/uL Normal 3.5-10.8 Diff 101 [facility] [place] [address] [phone] Red Blood Count 4.17 10^6/uL Normal 3.70-4.87 [...] Red Blood Cells % 0.0 Inr/Protime 06/11/2019 [facility] Inr 1.06 Normal 0.82-1.[address] [place], [place] [address], [place] [address] [phone] Laboratory test 05/16/2019 [facility] Prolactin 19.7 Normal 1.0-25.[address] ng/[place] [address] [phone] TSH (Thyroid Stim Horm) 1.36 mcIU/mL Normal [...] in selective patients <6.0%. Please refer to [place] [employer] diabetic care guidelines for further information. 3 ADDITIONAL INFORMATION This test was developed using an analyte specific reagent. Its performance characteristics were determined by [facility] in a manner consistent with CLIA requirements. This test has not been cleared or approved by the U.S. Food and Drug Administration. 4 ADDITIONAL INFORMATION This test was developed using an analyte specific reagent. Its performance characteristics were determined by [facility] in a manner consistent with CLIA requirements. This test has not been cleared or approved by the U.S. Food and Drug Administration. 5 ADDITIONAL INFORMATION This test was developed using an analyte specific reagent. Its performance characteristics were determined by [facility] in a manner consistent with CLIA requirements. [...] tested in 2-4 weeks. Test Performed by: [place] [address] Licensed Sales Producer: Robert Marshall M.D. Ph.D.; CLIA# [id number] 7 <1:80 (Negative) REFERENCE VALUE <1:80 (Negative) Test Performed by: [facility] [place] [address] Licensed Sales Producer: Robert Marshall M.D. Ph.D.; CLIA# [id number] 8 Normally menstruating females - Follicular phase [...] + 12 15-115 11 Test Performed by: [place] [address] Licensed Sales Producer: Robert Marshall M.D. Ph.D.; CLIA# [id number] 12 REFERENCE VALUE 7.2-63 (a.m. collection) Test Performed by: [facility] [place] [address] Licensed Sales Producer: Robert Marshall M.D. Ph.D.; CLIA# [id number] 13 REFERENCE VALUE -2.0 - +2.0 ADDITIONAL INFORMATION This test was developed and its performance characteristics determined by [facility] in a manner consistent with CLIA requirements. This test has not been cleared or approved by the U.S. Food and Drug Administration. Test Performed by: [facility] [place] [address] Licensed Sales Producer: Robert Marshall M.D. Ph.D.; CLIA# [id number] REFERENCE VALUE 18-144 (non-) Test Performed by: [facility] [place] [address] Licensed Sales Producer: Robert Marshall M.D. Ph.D.; CLIA# [id number] 15 [facility] Severe Sepsis and Septic Shock Management [...] range: 2.5-3.5 Procedures Date Code Description Status 09/19/2019 45714 Holter Monitor Review (24 hr)dr review & interp only Completed 09/19/2019 65008 ECG Monitor/Recording W/Visual Superimposition Scanning Completed 08/15/2019 49665 Nerve Conduction 03-04 Studies Completed 08/15/2019 81450 Needle Electromyography Complete, Five Or More Muscles Completed Studied 07/10/2019 79923 EEG Recording Awake & Drowsy Completed 05/31/2019 98967 EEG Recording Awake & Drowsy Completed 06/24/2010 77658239 Mammogram Completed Medical Devices Description No Information Available Encounters Type Date Location Provider Dx Diagnosis Office Visit 09/07/2019 [facility] Vanessa White M.D., R55 Syncope and 2:00p Medicine - [facility] FACP collapse G40.89 Other seizures G89.4 Chronic pain syndrome F17.210 Nicotine dependence, cigarettes, uncomplicated Office Visit 09/01/2019 11:30a [facility] Leandro Gagnon, R55 Syncope and OFFICE ADMINISTRATOR collapse G43.009 Migraine w/o aura, not intractable, w/o status migrainosus R53.83 Other fatigue Office Visit 08/29/2019 Tj Cuevas, S46.011D Strain of 1:15p Orthopedics at [place] maria/tend the [place] rotator cuff of right shoulder, subs Office Visit 08/22/2019 [facility] Edd Allenah G89.4 Chronic pain 3:00p Medicine - Ccmob Gulshad, OFFICE ADMINISTRATOR syndrome Office Visit 08/22/2019 Tj Cuevas, S46.011D Strain of 1:15p Orthopedics at [facility] maria/tend the [place] rotator cuff of right shoulder, subs G56.21 Lesion of ulnar nerve, right upper limb G56.22 Lesion of ulnar nerve, left upper limb Office Visit 08/07/2019 [place] [facility] M75.41 Impingement 1:30p Orthopedics at [place]. syndrome of right [place] shoulder S46.011A Strain of musc/tend the rotator cuff of right shoulder, init M25.511 Pain in right shoulder Office Visit 07/24/2019 2:45p [facility] Tory Weathers, M25.511 Pain in right at [place] RPA-C shoulder S46.011A Strain of musc/tend the rotator cuff of right shoulder, init M75.41 Impingement syndrome of right shoulder Office Visit 07/21/2019 [facility] Le[facility] Gagnon, G43.009 Migraine w/o 11:00a Clinic OFFICE ADMINISTRATOR aura, not intractable, w/o status migrainosus R55 Syncope and collapse F07.81 Postconcussional syndrome Office Visit 07/19/2019 11:15a [facility] Damon S46.011D Strain of at Lidia Cuevas MD musc/tend the rotator cuff of right shoulder, subs G56.01 Carpal tunnel syndrome, right upper limb G56.21 Lesion of ulnar nerve, right upper limb Office Visit 06/28/2019 [facility] Leandro Gagnon, R56.9 Unspecified 3:00p Clinic OFFICE ADMINISTRATOR convulsions G43.009 Migraine w/o aura, not intractable, w/o status migrainosus M54.2 Cervicalgia Office Visit 05/16/2019 2:40p [facility] Maritza G40.89 Other seizures Medicine - Lorraine Del Cid M.D. 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, not intractable, without status epilepticus 09/15/2019 Z79.899 Other halfway (current) drug Leandro Gagnon NP therapy 09/07/2019 R55 Syncope and collapse Vanessa White M.D., FACP 09/07/2019 G40.89 Other seizures Vanessa White M.D., FACP 09/07/2019 G89.4 Chronic pain syndrome Vanessa White M.D., FACP 09/07/2019 F17.210 Nicotine dependence, cigarettes, Vanessa White M.D., FACP uncomplicated 09/06/2019 D35.2 Benign neoplasm of pituitary gland Adal Mendieta MD 09/01/2019 R55 Syncope and collapse Leandro Gagnon, OFFICE ADMINISTRATOR 09/01/2019 G43.009 Migraine without aura, not Leandro Gagnon, OFFICE ADMINISTRATOR intractable, without status migrainosus 09/01/2019 R53.83 Other fatigue Leandro Gagnon, JANETH 08/29/2019 S46.011D Strain of muscle(s) and tendon(s) of Damon Cuveas MD the rotator cuff of right shoulder, subsequent encounter 08/22/2019 G89.4 Chronic pain syndrome Edd Gilson Prieto, JANETH 08/22/2019 S46.011D Strain of muscle(s) and tendon(s) of Damon Cuevas MD the rotator cuff of right shoulder, subsequent encounter 08/22/2019 G56.21 Lesion of ulnar nerve, right upper Damon Cuevas MD limb 08/22/2019 G56.22 Lesion of ulnar nerve, left upper Damon uCevas MD limb 08/15/2019 G56.21 Lesion of ulnar [...] MD 07/24/2019 M25.511 Pain in right shoulder WENDI Qureshi 07/24/2019 S46.011A Strain of muscle(s) and tendon(s) of JOEL Qureshi the rotator cuff of right shoulder, initial [...] am - Leandro Gagnon NP at [facility] Toaqwv7509/25/2019 3:20 pm - Darren Clemens MD at [facility] Internal Medicine - [address]007/2019 9:00 am - Damon Cuevas MD at [facility] at Npwgrq0811/22/2019 9:30 am - Damon Cuevas MD at [facility] at Mecetg9010/24/2019 11:00 am - Damon Cuevas MD at [facility] at Xxqvlk5711/13/2019 7:30 am - Damon Cuevas MD at [facility] at Covtfd4709/15/2019 - Leandro Gagnon, NPG40.209 Localization-related (focal) (partial) symptomatic epilepsy and epileptic syndromes with complex partial seizures, not intractable, without status epilepticusNew Medication:Alprazolam 0.25 mg - take one tab by mouth at bedtime, as needed for insomnia. mdd 1Referral:Darren Clemens MD, HospitalistFollow up:ONE MONTHRecommendations:Continue Lamotrigine. Continue to not drive for six months since last seizure.Z79.899 Other halfway (current ) drug therapy Functional Status Description No Information Available Mental Status Description No Information Available Referrals Refer to Dr Reason for Referral Status Appt Date Darren Clemens MD Needs to establish care with a PCP to be cleared Created for upcoming dental and shoulder surgery. [address] [place] [address] [place] [address] [phone] Milton Cai MD Previous patient; describes syncopal events, Sent lightheadedness, dizziness [address] [place] [address] [phone] Adal Mendieta MD Patient Notified 09/06/[address] [place] [address] [phone] Nelson Schmid M.D. Sent 06/28/2019 [address] [place] [address] [place] [address] [phone]
--- OUTSIDE RECORDS SUMMARY | 2019-09-23 13:59 | XMS REPORT | Continuity of Care Document ---
:1985 External Reference #:[id number] Author Name Vanessa White M.D., FACP (transmitted by agent of provider Eileen Wallace) Address [address] [facility], [place] [address] Care Team Providers Name Role Phone Destin Mayer M.D. - Family Medicine Care Team Information Pest Locator [phone] Jimmy Becker DO - Interventional Care Team Information Pest Locator Pain Medicine [facility] [place] [facility] - Sleep Disorder Care Team Information Pest Locator Diagnostic Dwayne Fermin MD - Orthopaedic Care Team Information Pest Locator Surgery Milton Moreno MD - Otolaryngology Care Team Information Pest Locator [phone] Mars Snyder MD - Interventional Care Team Information Pest Locator Pain Medicine Belgica Cueto MD - Endocrinology, Care Team Information Pest Locator [phone] Diabetes & Metabolism Kamaljit Soria M.D. - Neurological Care Team Information Pest Locator [phone] Surgery Rosa Torres M.D. - Family Medicine Care Team Information Pest Locator Adal Mendieta MD - Endocrinology, Care Team Information Pest Locator Diabetes & Metabolism Nelson Schmid M.D. - Neurology Care Team Information Pest Locator Problems Active Problems Provider Date Congenital spondylolysis [...] (10 or fewer cigarettes/day) Smoking Status Reviewed: 09/07/19 Light tobacco smoker (10 or fewer cigarettes/day) [...] Medications SIG Qnty Indications Ordering Date Provider Lamotrigine take one tab a day 140tabs Kamaljit Mccoy 09/07/2019 25mg for 2 weeks, then Tima Florentino Tablets 1 tab twice a day for 2 weeks, then 2 tabs twice a day 2 two weeks, then 4 tabs bid Sumatriptan Succinate take 1 tablet by 12tabs G43.909 Kamaljit Mccoy 03/24/2018 mouth at onset of Tima Florentino 100mg Tablets headache. may repeat after 2 hours as needed needs appointment Acetaminophen 2 tab 3 times 90tabs M54.5 Hernandez 12/16/2017 500mg daily as needed Pachevera, M.D. Tablets Benadryl Allergy 1-2 tabs PO prn 14tabs Other Ordering 06/22/2017 25mg Provider Tablets Ibuprofen 1 tab three times 30tabs Other Ordering 06/22/2017 600mg Tablets a day prn pain Provider Walker/Adult/Folding dx: h/o vertebral 1units M54.5 Leatha Jenkins, 2012 fracture, kyphosis Tima [facility] [place] E888.9 Tizanidine HCL take 1 tablet by [...] # [id number] Given 05/04/2013 Flu Vaccine NOS [id number] Given 10/27/2012 Tdap - Tetanus/Diptheria/Acellular Pertussis [id number] Vital Signs Date Vital Result Comment 09/07/2019 1:48pm Height 69 inches 5'9" Weight 195.00 lb Heart Rate 77 /min BP Systolic Sitting 113 mmHg Lue reg cuff BP Diastolic Sitting 72 mmHg Lue reg cuff O2 % BldC Oximetry 97 % BMI (Body Mass Index) 28.8 kg/m2 09/06/2019 2:00pm Height 69 inches 5'9" Weight 195.00 lb w/ shoes Heart Rate 71 /min BP Systolic Sitting 119 mmHg BP Diastolic Sitting 83 mmHg BMI (Body Mass Index) 28.8 kg/m2 Results Test Acquired Date Facility Test Result H/L Range Note Inr/Protime 06/11/2019 [facility] Inr 1.06 Normal 0.82-1.[address] [place] [address] [phone] CBC Auto 06/11/2019 [facility] White Blood 9.6 10^3/uL Normal 3.5-10.[address] [place] [address] [phone] Red Blood Count 4.17 10^6/uL Normal 3.70-4.87 [...] Blood Cells % 0.0 Laboratory test 06/11/2019 [facility] Lactic Acid 0.9 mmol/L Normal 0.5-2.0 2 finding [address] [place] [address] [phone] Comp Metabolic 06/11/2019 [facility] Sodium 134 mmol/L Low 135 -145 Panel [address] [place] [address] [phone] Potassium 3.5 mmol/L Normal 3.5-5.0 Chloride 102 [...] Egfr 88.4 >60 3 Laboratory test 06/11/2019 [facility] Magnesium 1.8 mg/dL Low 1.9-2.7 finding [address] [place] [address] [phone] Urinalysis 06/11/2019 [facility] Urine Color Yellow Profile [address] [place] [address] [phone] Urine Appearance Clear Urine Specific Firth 1.011 Normal 1.010-1.030 Urine pH 5.0 Normal 5-9 Urine Urobilinogen Negative Negative Urine Ketones Negative Negative Urine Protein Negative Negative Urine Leukocytes Negative Negative Urine Blood Negative Negative Urine Nitrite Negative Negative Urine Bilirubin Negative Negative Urine Glucose Negative Negative Laboratory test 05/16/2019 [facility] Prolactin 19.7 ng/mL Normal 1.0-25.0 finding [address] [place] [address] [phone] TSH (Thyroid Stim Horm) 1.36 mcIU/mL Normal 0.34-5.60 Magnesium 1.9 mg/dL Normal 1.9-2.7 1 Standard intensity warfarin therapeutic range: 2.0-3.0 High intensity warfarin therapeutic range: 2.5-3.5 2 [facility] Severe Sepsis and Septic Shock Management [...] (or dialysis) Procedures Date Code Description Status 08/15/2019 31377 Nerve Conduction 03-04 Studies Completed 08/15/2019 43397 Needle Electromyography Complete, Five Or More Muscles Completed Studied 07/10/2019 85085 EEG Recording Awake & Drowsy Completed 05/31/2019 54066 EEG Recording Awake & Drowsy Completed 06/24/2010 85406536 Mammogram Completed Medical Devices Description No Information Available Encounters Type Date Location Provider Dx Diagnosis Office Visit 08/29/2019 [facility] Damon Cuevas S46.011D Strain of 1:15p at Lidia maria/tend the rotator cuff of right shoulder, subs Office Visit 08/22/2019 [facility] Bagum Gilson G89.4 Chronic pain 3:00p Medicine - Lorraine Prieto NP syndrome Office Visit 08/22/2019 [facility] Damon Cuevas S46.011D Strain of 1:15p at Lidia PHIPPS musc/tend the rotator cuff of right shoulder, subs G56.21 Lesion of ulnar nerve, right upper limb G56.22 Lesion of ulnar nerve, left upper limb Office Visit 08/07/2019 [facility] M75.41 Impingement 1:30p Orthopedics at [facility] syndrome of right [place] shoulder S46.011A Strain of musc/tend the rotator cuff of right shoulder, init M25.511 Pain in right shoulder Office Visit 07/24/2019 2:45p [facility] Tory Weathers, M25.511 Pain in right at [place] RPA-C shoulder S46.011A Strain of musc/tend the rotator cuff of right shoulder, init M75.41 Impingement syndrome of right shoulder Office Visit 07/21/2019 [facility] Gagnon, G43.009 Migraine w/o 11:00a Clinic LAUNDRY AID aura, not intractable, w/o status migrainosus R55 Syncope and collapse F07.81 Postconcussional syndrome Office Visit 07/19/2019 11:15a [facility] Damon S46.011D Strain of at MD candace Flower/tend the rotator cuff of right shoulder, subs G56.01 Carpal tunnel syndrome, right upper limb G56.21 Lesion of ulnar nerve, right upper limb Office Visit 06/28/2019 [facility], R56.9 Unspecified 3:00p Clinic LAUNDRY AID convulsions G43.009 Migraine w/o aura, not intractable, w/o status migrainosus M54.2 Cervicalgia Office Visit 05/16/2019 2:40p [facility] Internal Maritza G40.89 Other seizures Medicine - Lorraine Del Cid M.D. D35.2 Benign neoplasm of pituitary gland Z72.0 Tobacco use G50.1 Atypical facial pain Assessments Date Code Description Provider 09/07/2019 R55 Syncope and collapse Vanessa White M.D., FACP 09/07/2019 G40.89 Other seizures Vanessa White M.D., FACP 09/07/2019 G89.4 Chronic pain syndrome Vanessa White M.D., FACP 09/07/2019 F17.210 Nicotine dependence, cigarettes, Vanessa White M.D., FACP uncomplicated 09/06/2019 D35.2 Benign neoplasm of pituitary gland Adal Mendieta MD 09/01/2019 R55 Syncope and collapse Leandro Gagnon NP 09/01/2019 G43.009 Migraine without aura, not Leandro Kalin, JANETH intractable, without status migrainosus 08/29/2019 S46.011D Strain of muscle(s) and tendon(s) of Damon Cuevas MD the rotator cuff of right shoulder, subsequent encounter 08/22/2019 S46.011D Strain of muscle(s) and tendon(s) of Damon Cuevas MD the rotator cuff of right shoulder, subsequent encounter 08/22/2019 G89.4 Chronic pain syndrome Edd Mcgeeemerita, LAUNDRY AID 08/22/2019 G56.21 Lesion of ulnar nerve, right [...] NP 06/28/2019 G43.009 Migraine without aura, not Leandrofarooq [...] Del Cid M.D. Plan of Treatment Future Appointment(s):09/25/2019 3:20 pm - Darren Clemens MD at [facility] Internal Medicine - Suite 09/20/2019 10:30 am - Nurse Visit cc at [facility]09/18 12:00 pm - Nurse Visit cc at [facility]10/13/2019 1:30 pm - Leandro Gagnon NP at [facility] Qlahln0612/11/2019 9:00 am - Damon Cuevas MD at [facility] at Kepnxf2411/22/2019 9:30 am - Damon Cuevas MD at [facility] at Szaqvw2910/24/2019 11:00 am - Damon Cuevas MD at [facility] at Dwktoy5811/13/2019 7:30 am - Damon Cuevas MD at [facility] at Wkkxhw2209/07/2019 - Vanessa White M.D., FACPR55 Syncope and collapseComments:FAINTING/COLLAPSE:Keep well hydrated. Avoid alcohol.G40.89 Other seizuresComments:SEIZURES?I understand that you have been seen in the Neurology office and that you have not yet started the Lamotrigine. You report that another EEG is scheduled.G89.4 Chronic pain syndromeNew Labs:Drug Screen [facility], Ordered: 09/07/19F17.210 Nicotine dependence, cigarettes, uncomplicatedComments:SMOKING CESSATION:Resources such as [place] [employer] and other community contacts given. Functional Status Description No Information Available Mental Status Description No Information Available Referrals Refer to Reason for Referral Status Appt Date Milton Cai MD Previous patient; describes syncopal events, Sent lightheadedness, dizziness [address] [place] [address] [phone] Adal Mendieta MD Patient Notified 09/06/[address] [place] [address] [phone] Nelson Schmid M.D. Sent 06/28/2019 [address] [place] [address] [phone]
--- OUTSIDE RECORDS SUMMARY | 2019-09-23 13:59 | XMS REPORT ---
:1985 Author Organization [facility] Care Team Providers Name Role Phone STEVE, CAMILLE Primary Care Physician Unavailable Allergies, Adverse Reactions, Alerts Allergy Code CodeSystem Reaction Severity Criticality Status Start Substance Date codeine sulfate unspecified Moderate Active 2018-10 depakote unspecified Moderate Active 2018-10 morphine unspecified Moderate Active 2018-10 Flexeril unspecified Moderate Active 2018-10 meperidine unspecified Moderate Active 2018-10 Clindamycin unspecified Moderate Active 2018-10 clarithromycin unspecified Moderate Active 2018-10 Darvocet-N 50 unspecified Moderate Active 2018-10 doxycycline unspecified Moderate Active 2018-10 hyclate -16 Toradol unspecified Moderate Active 2018-10 Penicillins unspecified Moderate Active 2018-10 Group -16 Bactrim unspecified Moderate Active 2018-10 (sulfamethoxazol -16 e-trimethoprim) oxycodone-acetam unspecified Moderate Active 2018-10 inophen -16 Keflex unspecified Moderate Active 2018-10 (cephalexin) -16 Medications Medication Medication Medication Start Stop Route Dose Status Fill Code CodeSystem Date Date Instructions sumatriptan 194129 RxNorm 2018-10 oral 100 mg 1 active Take 1 tablet succinate -16 tablet by mouth every every two two hours as hours needed Flintstones RxNorm 2018-10 oral 2 active Take 2 tablet Complete -16 tablet,c by mouth once (iron) hewable a day as once a directed day Problems Problem Name Code CodeSystem Alternate Alternate Start End Status Narrative Code CodeSystem Date Date Adjustment 61132322 SNOMED-CT Active disorder with 4-08 depressed mood 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 Unspecified 27398464 SNOMED-CT 2018-07 Active anxiety 0-08 disorder Emotionally 27348149 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 Adjustment 99570214 SNOMED-CT 2019- Active disorder with 4-08 depressed mood Conduct 23567968 SNOMED-CT 2019- Active disorder, 3-22 unspecified Conduct 40190082 SNOMED-CT 2019- Active disorder, 3-22 unspecified Depressive 54217475 SNOMED-CT 2018- Active episode, 0-08 unspecified Polycystic 73093014 SNOMED-CT 2018- Active Ovarian 0-08 Syndrome Relevant diagnostic tests/laboratory data Narrative No Information Procedures Procedure Code CodeSystem Target Date of Status Service Device Device Device Name Site Procedure Delivery Code Name UID Location Psychother 9029780 SNOMED-CT () 2019-01-18 completed Mental apy, 45 4 Health- minutes [place] with [address], [id number] Psychother 8746822 SNOMED-CT () 2018-12-07 completed Mental apy, 45 4 Health- minutes [place] with [address], [id number] SNOMED-CT () 2018-11-15 completed [facility], [id number] SNOMED-CT () 2018-12-20 completed [facility], [id number] Psychother 9104481 SNOMED-CT () 2018-10-18 completed Mental apy, 45 4 Health- minutes [place] with [address], [id number] SNOMED-CT () 2018-11-01 completed [facility], [id number] Psychother 2132860 SNOMED-CT () 2019-02-01 completed Mental apy, 45 4 Health- minutes [place] with [address], [id number] SNOMED-CT () 2019-05-[address], [address] 2115806402 SNOMED-CT () 2019-03-22 completed [facility], [id number] SNOMED-CT () 2019-01-04 [facility]- [address], [id number] [id number] Encounters/Encounter Diagnoses Encounter Encounter Diagnosis Diagnosis Diagnosis Date of Service Name Code Code Name CodeSystem Diagnosis Delivery Location Non-Billable 30358 SNOMED-CT 2019-07-06 [facility] , , , Vital Signs No Information Social History Element Description Description Start End Code CodeSystem AdditionalInfo Date Date SexAssignedAtBirth Female 1984-07 F AdministrativeGender 07-30 Hospital Discharge Instructions Reason For Referral Medical Equipment FDA Assessments
--- OUTSIDE RECORDS SUMMARY | 2019-09-23 13:59 | XMS REPORT | Continuity of Care Document ---
:1985 External Reference #:[id number] Author Name Adal Mendieta MD (transmitted by agent of provider Jody Joe) Address [address] [address] Care Team Providers Name Role Phone Destin Mayer M.D. - Family Medicine Care Team Information Supervisor [employer] Jimmy Becker DO - Interventional Care Team Information Supervisor [employer] Pain Medicine [facility] - [place] Disorder Care Team Information Supervisor [employer] Diagnostic Dwayne Fermin MD - Orthopaedic Care Team Information Supervisor [employer] Surgery Milton Moreno MD - Otolaryngology Care Team Information Supervisor [employer] Mars Snyder MD - Interventional Care Team Information Supervisor [employer] Pain Medicine Belgica Cueto MD - Endocrinology, Care Team Information Supervisor [employer] [phone] Diabetes & Metabolism Kamaljit Soria M.D. - Neurological Care Team Information Supervisor [employer] [phone] Surgery Rosa Torres M.D. - Family Medicine Care Team Information Supervisor [employer] [phone] Adal Mendieta MD - Endocrinology, Care Team Information Supervisor [employer] Diabetes & Metabolism Nelson Schmid M.D. - Neurology Care Team Information Supervisor [employer] [phone] Problems Active Problems Provider Date Congenital spondylolysis [...] (10 or fewer cigarettes/day) Smoking Status Reviewed: 09/06/19 Light tobacco smoker (10 or fewer cigarettes/day) [...] Provider Sumatriptan Succinate take 1 tablet by 12tabs G43.909 Kamaljit Mccoy 03/24/2018 mouth at onset of Tima Florentino 100mg Tablets headache. may repeat after 2 hours as needed needs appointment Acetaminophen 2 tab 3 times daily 90tabs M54.5 Hernandez 12/16/2017 500mg as needed Tima Rocha Tablets Benadryl Allergy 1-2 tabs PO prn 14tabs Other Ordering 06/22/2017 25mg Provider Tablets Ibuprofen 1 tab three times a 30tabs Other Ordering 06/22/2017 600mg Tablets day prn pain Provider Walker/Adult/Ambreen dx: h/o vertebral 1units M54.5 Leatha Jenkins, 2012 fracture, kyphosis [place] E888.9 Tizanidine HCL take 1 tablet by [...] # [id number] Given 05/04/2013 Flu Vaccine NOS 14581 Given 10/27/2012 Tdap - Tetanus/Diptheria/Acellular Pertussis [id number] Vital Signs Date Vital Result Comment 09/06/2019 2:00pm Height 69 inches 5'9" Weight 195.00 lb w/ shoes Heart Rate 71 /min BP Systolic Sitting 119 mmHg BP Diastolic Sitting 83 mmHg BMI (Body Mass Index) 28.8 kg/m2 09/01/2019 11:44am Height 69 inches 5'9" Weight 200.00 lb Heart Rate 66 /min BP Systolic 120 mmHg BP Diastolic 72 mmHg BMI (Body Mass Index) 29.5 kg/m2 Results Test Acquired Date Facility Test Result H/L Range Note Inr/Protime 06/11/2019 [facility] Inr 1.06 Normal 0.82-1.09 [address] [place] [address] [phone] CBC Auto 06/11/2019 [facility] White Blood 9.6 10^3/uL Normal 3.5-10.8 Diff 101 [facility] [place] [address] [phone] Red Blood Count 4.17 10^6/uL Normal 3.70-4.87 [...] Blood Cells % 0.0 Laboratory test 06/11/2019 [facility] Lactic Acid 0.9 mmol/L Normal 0.5-2.0 2 finding [address] [place] [address] [phone] Comp Metabolic 06/11/2019 [facility] Sodium 134 mmol/L Low 135 -145 Panel [address] [place] [address] [phone] Potassium 3.5 mmol/L Normal 3.5-5.0 Chloride 102 [...] Egfr 88.4 >60 3 Laboratory test 06/11/2019 [facility] Magnesium 1.8 mg/dL Low 1.9-2.7 finding [address] [place] [address] [phone] Urinalysis 06/11/2019 [facility] Urine Color Yellow Profile [address] [place] [address] [phone] Urine Appearance Clear Urine Specific Jean 1.011 Normal 1.010-1.030 Urine pH 5.0 Normal 5-9 Urine Urobilinogen Negative Negative Urine Ketones Negative Negative Urine Protein Negative Negative Urine Leukocytes Negative Negative Urine Blood Negative Negative Urine Nitrite Negative Negative Urine Bilirubin Negative Negative Urine Glucose Negative Negative Laboratory test 05/16/2019 [facility] Prolactin 19.7 ng/mL Normal 1.0-25.0 finding [address] [place] [address] [phone] TSH (Thyroid Stim Horm) 1.36 mcIU/mL Normal [...] dialysis) Procedures Date Code Description Status 08/15/2019 00330 Nerve Conduction 03-04 Studies Completed 08/15/2019 06109 Needle Electromyography Complete, Five Or More Muscles Completed Studied 07/10/2019 27495 EEG Recording Awake & Drowsy Completed 05/31/2019 14499 EEG Recording Awake & Drowsy Completed 06/24/2010 03645642 Mammogram Completed Medical Devices Description No Information Available Encounters Type Date Location Provider Dx Diagnosis Office Visit 08/29/2019 [facility] Damon Cuevas S46.011D Strain of 1:15p at [place] musc/tend the rotator cuff of right shoulder, subs Office Visit 08/22/2019 [facility] Bag[facility] Gilson G89.4 Chronic pain 3:00p Medicine - Ccmob JANETH Prieto syndrome Office Visit 08/22/2019 [facility] Damon Cuevas, S46.011D Strain of 1:15p at [place] musc/tend the rotator cuff of right shoulder, subs G56.21 Lesion of ulnar nerve, right upper limb G56.22 Lesion of ulnar nerve, left upper limb Office Visit 08/07/2019 [facility] M75.41 Impingement 1:30p [facility]oped[facility] at [facility] syndrome of right [place] shoulder S46.011A Strain of musc/tend the rotator cuff of right shoulder, init M25.511 Pain in right shoulder Office Visit 07/24/2019 2:45p [facility] Tory Weathers M25.511 Pain in right at [place] RPA-C shoulder S46.011A Strain of musc/tend the rotator cuff of right shoulder, init M75.41 Impingement syndrome of right shoulder Office Visit 07/21/2019 [facility]agnon, G43.009 Migraine w/o 11:00a Clinic METAL FABRICATOR APPRENTICE aura, not intractable, w/o status migrainosus R55 Syncope and collapse F07.81 Postconcussional syndrome Office Visit 07/19/2019 11:15a [facility] Damon S46.011D Strain of at [facility]idia Cuevas MD musc/tend the rotator cuff of right shoulder, subs G56.01 Carpal tunnel syndrome, right upper limb G56.21 Lesion of ulnar nerve, right upper limb Office Visit 06/28/2019 [facility], R56.9 Unspecified 3:00p Clinic METAL FABRICATOR APPRENTICE convulsions G43.009 Migraine w/o aura, not intractable, w/o status migrainosus M54.2 Cervicalgia Office Visit 05/16/2019 2:40p [facility] Internal Maritza G40.89 Other seizures Medicine - Lorraine Del Cid M.D. D35.2 Benign neoplasm of pituitary gland Z72.0 Tobacco use G50.1 Atypical facial pain Assessments Date Code Description Provider 09/06/2019 D35.2 Benign neoplasm of pituitary gland Adal Mendieta MD 09/01/2019 R55 Syncope and collapse Leandro Gagnon NP 09/01/2019 G43.009 Migraine without aura, not Leandro Gagnon NP intractable, without status migrainosus 08/29/2019 S46.011D Strain of muscle(s) and tendon(s) of Damon Cuevas MD the rotator cuff of right shoulder, subsequent encounter 08/22/2019 G89.4 Chronic pain syndrome Edd Prieto, JANETH 08/22/2019 S46.011D Strain of muscle(s) [...] Strain of muscle(s) and tendon(s) of Giana DeBuck, M.D. the rotator cuff of right shoulder, [...] 07/21/2019 G43.009 Migraine without aura, not Leandro Kalin, METAL FABRIC[employer] APPRENTICE intractable, without status migrainosus 07/21/2019 R55 Syncope and collapse Leandro Gagnon, METAL FABRICATOR APPRENTICE 07/21/2019 F07.81 Postconcussional syndrome Leandro Gagnon, JANETH [...] 06/28/2019 G43.009 Migraine without aura, not Leandro Kalin, METAL FABRICATOR APPRENTICE intractable, without status migrainosus 06/28/2019 M54.2 Cervicalgia Leandrofarooq Gagnon, JANETH 05/31/2019 R56.9 Unspecified convulsions Law Herrera MD 05/16/2019 G40.89 Other seizures Maritza Del Cid M.D. 05/16/2019 D35.2 Benign neoplasm of pituitary gland Maritza Del Cid M.D. 05/16/2019 Z72.0 Tobacco use Maritza Del Cid M.D. 05/16/2019 G50.1 Atypical facial pain Maritza Del Cid M.D. Plan of Treatment Future Appointment(s):09/25/2019 3:20 pm - Darren Clemens MD at [facility] Internal Medicine - [address] R009/20/2019 10:30 am - Nurse Visit cc at [facility]09/18 12:00 pm - Nurse Visit cc at [facility]10/13/2019 1:30 pm - Leandro Gagnon NP at [facility] Wtaynz1912/11/2019 9:00 am - Damon Cuevas MD at [facility] at [id number]/22/2019 9:30 am - Damon Cuevas MD at [facility] at Oakafj4410/24/2019 11:00 am - Damon Cuevas MD at [facility] at Hmmplf3211/13/2019 7:30 am - Damon Cuevas MD at [facility] at Jwmpnc4909/06/2019 - SHAY Rangel35.2 Benign neoplasm of pituitary glandFollow up:as needed.Recommendations:1. Blood test at 8 AM in the morning on empty stomach. 2. We will inform you about the results. Functional Status Description No Information Available Mental Status Description No Information Available Referrals Refer to Dr Reason for Referral Status Appt Date Milton Cai MD Previous patient; describes syncopal events, Sent lightheadedness, dizziness [address] [facility] [address] [place] [address] [phone] Adal Mendieta MD Patient Notified 09/06/[address] [place] [address] [phone] Nelson Schmid M.D. Sent 06/28/2019 [facility] [facility] [place] [address] [phone]
--- NOTE | 2019-09-23 16:40 | ED ---
Upper Extremity Pain - HPI Summary HPI Summary: 34-year-old female presents to the emergency department today complaining of right forearm, bilateral knee, bilateral ankle, low back pain after falling down 3 stairs from a mechanical fall yesterday afternoon. Patient endorses 10 out of 10 pain to these areas. Patient has full range of motion with no obvious deformity. Patient has area of mild ecchymosis to the right forearm. Patient is neurovascularly intact. Patient has not taking any medication prior to arrival for alleviation of her symptoms. Patient is otherwise well and denies fever, chest pain, abdominal pain, and urination, nausea, vomiting, diarrhea. - History of Current Complaint Chief Complaint: EDFall Stated Complaint: FALL/BODY PAIN PER PT Time Seen by Provider: 09/23/19 16:25 Hx Obtained From: Patient Hx Last Menstrual Period: 07/08/2019 Mechanism Of Injury: Fall From Height Of: - 3 steps Onset/Duration: Started Days Ago Timing: Constant Pain Location: Elbow, Forearm, Wrist Aggravating Factor(s): Movement, Lifting, Flexion, Extension, Internal/External Rotation Associated Signs & Symptoms: Positive: Bruising. Negative: Swelling, Redness, Numbness/Tingling - Allergies/Home Medications Allergies/Adverse Reactions: Allergies Allergy/AdvReac Type Severity Reaction Status Date / Time propoxyphene Allergy Intermediate skin rash Verified 09/23/19 13:45 [From Darvocet-N] ampicillin Allergy Anaphylatic Verified 09/23/19 13:45 Shock cephalexin [From Keflex] AdvReac Severe Unknown Verified 09/23/19 13:45 Reaction Details clarithromycin [From Biaxin] AdvReac Severe Nausea And Verified 09/23/19 13:45 Vomiting cyclobenzaprine AdvReac Severe See Comment Verified 09/23/19 13:45 [From Flexeril] divalproex sodium AdvReac Severe Abdominal Verified 09/23/19 13:45 [From Depakote] Pain doxycycline AdvReac Severe Rash Verified 09/23/19 13:45 naproxen AdvReac Severe Abdominal Verified 09/23/19 13:45 Pain trimethoprim [From Bactrim] AdvReac Severe Nausea Verified 09/23/19 13:45 metaxalone [From Skelaxin] AdvReac Intermediate See Comment Verified 09/23/19 13 :45 morphine AdvReac Intermediate Swelling Verified 09/23/19 13:45 Of Face,Lips,& Throat miracle whip AdvReac Severe n/v, Uncoded 09/23/19 13:45 itchy. hives ragu spaghetti sauce AdvReac Severe n/v, Uncoded 09/23/19 13:45 hives, itchiness Home Medications: Home Medications Amitriptyline TAB* [Elavil TAB*] 40 mg PO BEDTIME 07/29/19 [History Confirmed ] Ibuprofen TAB* [Advil TAB*] 800 mg PO Q6H PRN 07/29/19 [History Confirmed ] Meloxicam [Mobic] 15 mg PO DAILY 07/29/19 [History Confirmed 08/07/19] SUMAtriptan succinate [Imitrex] 100 mg PO Q2H PRN MDD 4 tabs 07/29/19 [History Confirmed 08/07/19] tiZANidine TAB* [Zanaflex TAB*] 2 mg PO BID 07/29/19 [History Confirmed 08/07/19 ] Acetaminophen TAB* [Tylenol TAB*] 1,500 mg PO Q4H PRN 08/07/19 [History Confirmed 08/07/19] Cbd Cream 1 applic TOPICAL DAILY PRN 08/07/19 [History Confirmed 08/07/19] Menthol/Aloe Vera Extract [Icy Hot 16% Power Gel] 1 applic TOPICAL DAILY PRN [History Confirmed 08/07/19] Tramadol 50 MG # 6 TAB PREPAK 50 mg PO BID #6 tab MDD 400mg/day 08/07/19 [Rx] diphenhydrAMINE HCl [Benadryl Allergy] 1 tab PO ONCE PRN 08/07/19 [History Confirmed 08/07/19] Acetaminop/Codeine 30 MG TAB* [Tylenol/Codeine 30 MG TAB*] 1 tab PO Q6H PRN #12 tab MDD 4 08/19/19 [Rx] Lidocaine 2% VISCOUS* [Xylocaine 2% Viscous*] 15 ml SWISH SPIT Q6H PRN #1 btl [Rx] Ondansetron ODT TAB* [Zofran 4 MG Odt TAB*] 4 mg PO Q6H PRN #12 tab.odt MDD 4 [Rx] Penicillin VK 500 MG TAB(NF) [Penicillin VK 500 mg Tab(NF)] 500 mg PO TID #21 tab MDD 3 08/19/19 [Rx] PMH/Surg Hx/FS Hx/Imm Hx Endocrine/Hematology History: Denies: Hx Anticoagulant Therapy, Hx Blood Disorders, Hx Diabetes Cardiovascular History: Reports: Hx Syncope, Other Cardiovascular Problems/ Disorders - low blood pressure Denies: Hx Hypertension, Hx Pacemaker/ICD Respiratory History: Reports: Other Respiratory Problems/Disorders - insomnia Denies: Hx Asthma, Hx Chronic Obstructive Pulmonary Disease (COPD) GI History: Reports: Hx Gastroesophageal Reflux Disease - on med, Hx Irritable Bowel, Hx Ulcer - stomach ulcers and an ulcer in esophagus, Other GI Disorders - DIVERTICULITIS-? History: Reports: Other Problems/Disorders - polycystic ovarian syndrome Denies: Hx Dialysis, Hx Renal Disease Musculoskeletal History: Reports: Hx Arthritis, Hx Back Problems, Hx Orthopedic Injury, Hx Osteoporosis - spondylolisthesis, Hx Tendonitis, Other Musculoskeletal History - reports multiple fractures in past, chronic right arm pain and injury/ulnar Denies: Hx Rheumatoid Arthritis Sensory History: Denies: Hx Cataracts, Hx Contacts or Glasses, Hx Legally Blind, Hx Deafness, Hx Hearing Aid Opthamlomology History: Denies: Hx Cataracts, Hx Contacts or Glasses, Hx Legally Blind Neurological History: Reports: Hx Migraine - on med prn, Hx Nerve Disease - fibromyalgia, Hx Spinal Cord Injury - fx of L4, L5 S1, Other Neuro Impairments/ Disorders - reports she has a pituitary adenoma Psychiatric History: Reports: Hx Anxiety - NO MEDICATION FOR AT THIS TIME, Hx Depression - NO MEDICATION FOR AT THIS TIME, Hx Post Traumatic Stress Disorder, Hx Community Mental Health Tx Denies: Hx Attention Deficit Hyperactivity Disorder, Hx Eating Disorder, Hx Panic Disorder, Hx Inpatient Treatment, Hx Schizophrenia, Hx Bipolar Disorder, Hx Suicide Attempt, Hx of Violent Episodes Against Others, Hx Substance Abuse, Other Psychiatric Issues/Disorders - Cancer History Cancer Type, Location and Year: None reported Hx Chemotherapy: No - Surgical History Surgery Procedure, Year, and Place: Right wrist surgery/RIGHT ELBOW 05/17/17. 2018 RIGHT SHOULDER SURGERYx2. tonsillectomy 1989 - . right ovarian cyst removed 2006 [facility] [place]. [place]olecyst[place] 2006 [facility] [place]. [place] 2006 - [facility] [place]. teeth extraction ( one in office and one at [facility] [place] ear biopsy - 2014 [facility] [place]. ENDOSCOPIES/COLONOSCOPIES Hx Anesthesia Reactions: No - Immunization History Date of Tetanus Vaccine: Up to date Date of Influenza Vaccine: declined Infectious Disease History: No Infectious Disease History: Denies: Hx Clostridium Difficile, Hx Hepatitis, Hx Human Immunodeficiency Virus (HIV), Hx of Known/Suspected MRSA, Hx Shingles, Hx Tuberculosis, Hx Known/ Suspected VRE, Hx Known/Suspected VRSA, History Other Infectious Disease, Traveled Outside the [place] in Last 30 Days - Family History Known Family History: Positive: Cardiac Disease - mom, Diabetes - Social History Alcohol Use: None Hx Substance Use: Yes - not currently Substance Use Type: Reports: Marijuana Substance Use Comment - Amount & Last Used: hx cannabis use Hx Tobacco Use: Yes Smoking Status (MU): Light Every Day Tobacco Smoker Type: Cigarettes Amount Used/How Often: 1/4 PPD Length of Time of Smoking/Using Tobacco: since 17yo Have You Smoked in the Last Year: Yes Review of Systems Constitutional: Negative Eyes: Negative ENT: Negative Cardiovascular: Negative Respiratory: Negative Gastrointestinal: Negative Genitourinary: Negative Positive: Arthralgia Positive: Bruising. Negative: Rash Neurological/Mental Status: Negative Psychological: Normal All Other Systems Reviewed And Are Negative: Yes Physical Exam - Summary Physical Exam Summary: Patient is in no acute distress. Examination appears exaggerated. Patient has full range of motion at the ankles, knees, hips, elbow, wrist. Patient complains of pain with palpation of the whole bilateral knees, ankles, low back , right forearm. There are no obvious deformities. Triage Information Reviewed: Yes Vital Signs On Initial Exam: Initial Vitals Temp Pulse Resp BP Pulse Ox 98.1 F 85 19 119/84 100 09/23/19 13:40 09/23/19 13:40 09/23/19 13:40 09/23/19 13:40 09/23/19 13:40 Vital Signs Reviewed: Yes Appearance: Positive: Well-Appearing, No Pain Distress, Well-Nourished Skin: Positive: Warm, Skin Color Reflects Adequate Perfusion Eyes: Positive: EOMI, PARVEZ ENT: Positive: Hearing grossly normal Respiratory/Lung Sounds: Positive: Clear to Auscultation, Breath Sounds Present Cardiovascular: Positive: RRR, S1, S2 Abdomen Description: Positive: Nontender, Soft Bowel Sounds: Positive: Present Musculoskeletal: Positive: Strength/ROM Intact Neurological: Positive: Sensory/Motor Intact, Alert, Oriented to Person Place, Time, Normal Gait, Facial Symmetry, Speech Normal Psychiatric: Positive: Normal, Affect/Mood Appropriate AVPU Assessment: Alert Procedures - Sedation Patient Received Moderate/Deep Sedation with Procedure: No Diagnostics - Vital Signs Vital Signs Temp Pulse Resp BP Pulse Ox 09/23/19 15:19 98 F 90 16 116/69 100 09/23/19 13:40 98.1 F 85 19 119/84 100 - Laboratory Lab Statement: Any lab studies that have been ordered have been reviewed, and results considered in the medical decision making process. Course/Dx - Course Course Of Treatment: Patient was evaluated in the emergency department today for pain after fall. Vitals noted and stable. Patient was given Toradol IM for pain. Physical exam of the bilateral knees, ankles, low back appeared benign. There is no midline tenderness or evidence of vertebral fracture. Patient was able to ambulate. X-ray of the right forearm was obtained to evaluate possible fracture which showed no evidence of fracture or dislocation. Patient appears to have not sustained any significant trauma for her fall. Patient discharged with outpatient follow-up. - Diagnoses Differential Diagnosis/HQI/PQRI: Positive: Arthritis, Fracture (Closed), Hematoma, Strain, Sprain Provider Diagnoses: Arm pain, Ankle pain, Knee pain, Back pain Discharge ED - Sign-Out/Discharge Documenting (check all that apply): Patient Departure - Discharge Plan Condition: Stable Disposition: HOME Patient Education Materials: Arm Pain (ED) Referrals: Darren Clemens MD [Primary Care Provider] - 3 Days Additional Instructions: It does not appear that you have sustained any significant trauma from your fall today. Please take ibuprofen 600 mg every 6 hours as needed for pain. Please follow-up with your primary care physician for further evaluation and management of your symptoms. Please return to this emergency Department immediately if you develop any new or worsening symptoms. - Billing Disposition and Condition Condition: STABLE Disposition: Home - Attestation Statements Provider Attestation: I was available for consult. This patient was seen by the MAN[facility]. The patient was not presented to, seen by, or examined by me. Rony Yu MD
[2019-09-23] MEDS ORDERED: Ibuprofen TAB* 600 MG PO ONE (17:35)
[2019-09-23 19:06] VITALS: BP 00/00
== END 2019-09-23 18:59 | disposition home or self-care (01) ==
LOC: ED 13:36
DX: M79.601 Pain in right arm (principal); M25.572 Pain in left ankle and joints of left foot; M25.571 Pain in right ankle and joints of right foot; M25.562 Pain in left knee; M25.561 Pain in right knee; M54.9 Dorsalgia, unspecified; R55 Syncope and collapse; K21.9 Gastro-esophageal reflux disease without esophagitis; E28.2 Polycystic ovarian syndrome; F17.210 Nicotine dependence, cigarettes, uncomplicated; Z79.899 Other long term (current) drug therapy; Z88.6 Allergy status to analgesic agent; Z88.1 Allergy status to other antibiotic agents; Z88.0 Allergy status to penicillin
CPT/HCPCS: 99282; A9270-GY

== ENCOUNTER 2019-10-25 11:42 | Emergency (ER) | payer OTHER ==
--- OUTSIDE RECORDS SUMMARY | 2019-10-25 11:48 | XMS REPORT | Continuity of Care Document ---
:1985 External Reference #:[id number] Author Name Damon Cuevas MD (transmitted by agent of provider Annalisa Summers) Address [address] [place] [address] Care Team Providers Name Role Phone Destin Mayer M.D. - Family Medicine Care Team Information Shot Blaster [phone] Jimmy Becker DO - Interventional Care Team Information Shot Blaster Pain Medicine [facility] [place] [facility] - Sleep Disorder Care Team Information Shot Blaster Diagnostic Dwayne Fermin MD - Orthopaedic Care Team Information Shot Blaster Surgery [place] Moreno MD - Otolaryngology Care Team Information Shot Blaster Mars Snyder MD - Interventional Care Team Information Shot Blaster Pain Medicine Belgica Cueto MD - Endocrinology, Care Team Information Shot Blaster Diabetes & Metabolism Kamaljit Soria M.D. - Neurological Care Team Information Shot Blaster Surgery Adal Mendieta MD - Endocrinology, Care Team Information Shot Blaster Diabetes & Metabolism Nelson Schmid M.D. - Neurology Care Team Information Shot Blaster Darren Clemens MD - Hospitalist Care Team Information Shot Blaster [phone] Problems Active Problems Provider Date Congenital spondylolysis [...] Onset: 03/20/2016 Closed anterior dislocation of humerus Joudran Workman MD Onset: 02/23/2017 Lesion of ulnar [...] smoker, smokes every day Recreational Drug Use Sporadically uses Marijuana Tobacco Use Start: Unknown Light tobacco smoker (10 or fewer cigarettes/day) Smoking Status Reviewed: 10/17/19 Light tobacco smoker (10 or fewer cigarettes/day) Exercise Type/Frequency Exercises rarely Housework Allergies, Adverse Reactions, Alerts Active Allergies Reaction [...] Medications SIG Qnty Indications Ordering Date Provider Diazepam take one tablet by 30tabs Kamaljit Mccoy 10/11/2019 5mg Tablets mouth at bedtime, Tima Florentino as needed for insomnia, code c, mdd 1. Do not take with alprazolam. Lamotrigine take 1 tablet by 60tabs Kamaljit Mccoy 10/06/2019 100mg Tablets mouth twice a day Tima Florentino Starting 10/19/2019 Fludrocortisone take 1 tab by 30tabs Zarina Rubio, 09/26/2019 Acetate mouth daily N.P. 0.1mg Tablets Lamotrigine take 3 tabs by 42tabs Kamaljit Mccoy 09/25/2019 25mg Tablets mouth twice a day Tima Florentino from one week, starting 10/12/2019 Acetaminophen-Codeine take 1 tab q8 21tabs G89.4 Darren Clemens MD 09/25/2019 #3 hours as needed 300-30mg Tablets for tooth pain Sumatriptan Succinate take 1 tablet by 12tabs [...] M54.5 Leatha Jenkins, 2012 fracture, kyphosis Tima [facility] E888.9 Zofran take 1 tab every 6 Unknown 4mg Tablets hours as needed for vomiting. Omeprazole 1 by mouth every day 30caps Maritza Del Cid, 40mg Capsules DR as needed Tima History Medications Alprazolam take one tablet 30tabs Kamaljit Mccoy 10/06/2019 - 0.5mg Tablets by mouth, as Tima Florentino 10/11/2019 needed for insomnia. code c mdd 1 Fludrocortisone 1 by mouth every 30tabs I95.1 [place] Huynh 09/26/2019 - Acetate day Tima Cai 10/11/2019 0.1mg Tablets Alprazolam take one tab by 30tabs G40.209 Kamaljit Mccoy 09/15/2019 - 0.25mg Tablets mouth at Tima Florentino 10/03/2019 bedtime, as needed for insomnia. mdd 1 Lamotrigine 2 tabs by mouth 120tabs Kamaljit Mccoy 09/07/2019 - 25mg Tablets twice a day Tima Florentino 09/25/2019 Prednisone use as directed 1unalfred Faria 07/24/2019 - 5mg (21) JUNITO Don M.D. 08/22/2019 Amitriptyline HCL take 4 tabs by 120tabs G43.009 Kamaljit Mccoy 07/21/2019 - 10mg mouth at bedtime Tima Florentino 09/04/2019 Tablets Amitriptyline HCL take one tab po 120tabs G43.009 Kamaljit Mccoy 07/21/2019 - 10mg at hs for one Tima Flornetino 07/24/2019 Tablets wk, take 2 tabs at [...] # [id number] Given 05/04/2013 Flu Vaccine NOS [id number] Given 10/27/2012 Tdap - Tetanus/Diptheria/Acellular Pertussis [id number] Vital Signs Date Vital Result Comment 10/17/2019 2:02pm Height 69 inches 5'9" Weight 195.00 lb Heart Rate 95 /min BP Systolic 120 mmHg BP Diastolic 72 mmHg Body Temperature 98.0 F Pain Level 9 BMI (Body Mass Index) 28.8 kg/m2 09/26/2019 1:15pm Height 69 inches 5'9" Weight 194.38 lb with shoes and jacket Heart Rate 100 /min Left radial BP Systolic Sitting 118 mmHg Ule regular cuff BP Diastolic Sitting 72 mmHg Ule regular cuff BP Systolic Standing 102 mmHg Ule regular cuff BP Diastolic Standing 72 mmHg Ule regular cuff BMI (Body Mass Index) 28.7 kg/m2 Ejection Fraction EF 55-60% Echo 10/16/2014 Results Test Acquired Date Facility Test Result H/L Range Note Laboratory test 09/25/2019 [facility] Vitamin B12 <pending> finding [address] [place] [address] [phone] CBC Auto Diff 09/08/2019 [facility] White Blood 5.4 10^3/uL Normal 3.5-10.[address] [place] [address] [phone] Red Blood Count 4.56 10^6/uL Normal 3.70-4.87 [...] Blood Cells % 0.1 Comp Metabolic 09/08/2019 [facility] Sodium 135 mmol/L Normal 135-[address] [place] [address] [phone] Potassium 4.1 mmol/L Normal 3.5-5.0 Chloride 104 [...] Egfr 100.0 >60 1 Laboratory test 09/08/2019 [facility] Hemoglobin A1c 5.2 % Normal 4.0-5.[address] (Glyco HGB) [place], [place] [id number] [phone] T3 Total 102 ng/dL Normal 87-178 Thyroxine 6.59 g/dL Normal 6.09-12.23 Thyroid 09/08/2019 [facility] Thyroid 2.06 Normal <[address] Peroxidase IU/[place] [address] Antibodies [phone] Thyroglobulin Antibody II 0.0 IU/mL <4.0 Tick-Borne 09/08/2019 [facility] Anaplasma <1:64 <1:64 3 Disease [place] [address] [phone] Babesia microti IgG Ab, S <1:64 titer <1:64 4 Ehrlichia chaffeensis IgG AB <1:64 titer <1:64 5 Lyme Disease Serology Negative Negative 6 Laboratory test 09/08/2019 [facility] Erythrocyte Sed 5 mm/Hr Normal 0-[address] [place] [address] [phone] C Reactive Protein 4.18 mg/L Normal <8.01 Nuclear AB (Carmita) By Ifa Igg <1:80 (Negative) 7 FSH And LH 09/08/2019 [facility] FSH (Follicle Stim 6.4 mIU/mL [address] [place] [place]) [place] [address] [phone] LH (Lutenizing Hormone) 5.4 mIU/mL 9 Laboratory test finding 09/08/2019 [facility] Estradiol 45 pg/ mL [address] [place] [address] [phone] Dhea Sulfate 60 g/dL 45-295 11 TSH (Thyroid Stim Horm) 1.30 mcIU/mL Normal 0.34-5.60 Testosterone Total < 10.00 ng/dL Normal 8-60 Acth 17 pg/mL 12 Insulin-Like Growth 09/08/2019 [facility] Insulin like 166 ng/ mL 59-[address] [place] [address] I [phone] Igf1 Z-score 0.52 SD 13 Laboratory test 09/08/2019 [facility] Prolactin 24.5 ng/mL Normal 1.0-25.0 finding [address] [place] [address] [phone] Free T4 (Free Thyroxine) 0.87 ng/dL Normal 0.61-1.12 Sex Hormone Binding Globulin 34 nmol/L 14 Urinalysis Profile 06/11/2019 [facility] Urine Color Yellow [address] [place] [address] [phone] Urine Appearance Clear Urine Specific [place] 1.011 Normal 1.010-1.030 Urine pH 5.0 Normal 5-9 Urine Urobilinogen Negative Negative Urine Ketones Negative Negative Urine Protein Negative Negative Urine Leukocytes Negative Negative Urine Blood Negative Negative Urine Nitrite Negative Negative Urine Bilirubin Negative Negative Urine Glucose Negative Negative Laboratory test 06/11/2019 [facility] Magnesium 1.8 mg/dL Low 1.9-2.7 finding [address] [place] [address] [phone] Comp Metabolic 06/11/2019 [facility] Sodium 134 mmol/L Low 135 -145 Panel [address] [place] [address] [phone] Potassium 3.5 mmol/L Normal 3.5-5.0 Chloride 102 [...] Egfr Non- 73.0 >60 Egfr 88.4 >60 15 Laboratory test 06/11/2019 [facility] Lactic Acid 0.9 mmol/L Normal 0.5-2.0 [address] [place] [address] [phone] CBC Auto Diff 06/11/2019 [facility] White Blood 9.6 Normal 3.5 -10.[address] Count 10^3/[place] [address] [phone] Red Blood Count 4.17 10^6/uL Normal 3.70-4.87 [...] Red Blood Cells % 0.0 Inr/Protime 06/11/2019 [facility] Inr 1.06 Normal 0.82-1.[address] [place] [address] [phone] Laboratory test 05/16/2019 [facility] Prolactin 19.7 Normal 1.0-25.[address] ng/[place] [address] [phone] TSH (Thyroid Stim Horm) 1.36 mcIU/mL Normal [...] in selective patients <6.0%. Please refer to [place] [employer] diabetic care guidelines for further information. 3 ADDITIONAL INFORMATION This test was developed using an analyte specific reagent. Its performance characteristics were determined by [facility] in a manner consistent with CLIA requirements. This test has not been cleared or approved by the U.S. Food and Drug Administration. 4 ADDITIONAL INFORMATION This test was developed using an analyte specific reagent. Its performance characteristics were determined by [facility] in a manner consistent with CLIA requirements. This test has not been cleared or approved by the U.S. Food and Drug Administration. 5 ADDITIONAL INFORMATION This test was developed using an analyte specific reagent. Its performance characteristics were determined by [facility] in a manner consistent with CLIA [...] tested in 2-4 weeks. Test Performed by: [facility] [place] [address] Risk Tech: Robert Marshall M.D. Ph.D.; CLIA# [id number] 7 <1:80 (Negative) REFERENCE VALUE <1:80 (Negative) Test Performed by: [facility] [place] [address] Risk Tech: Robert Marshall M.D. Ph.D.; CLIA# [id number] 8 Normally menstruating females - Follicular phase [...] + 12 15-115 11 Test Performed by: [place] [address] Risk Tech: Robert Marshall M.D. Ph.D.; CLIA# [id number] 12 REFERENCE VALUE 7.2-63 (a.m. collection) Test Performed by: [place] [address] Risk Tech: Robert Marshall M.D. Ph.D.; CLIA# [id number] 13 REFERENCE VALUE -2.0 - +2.0 ADDITIONAL INFORMATION This test was developed and its performance characteristics determined by [facility] in a manner consistent with CLIA requirements. This test has not been cleared or approved by the U.S. Food and Drug Administration. Test Performed by: [facility] [place] [address] Risk Tech: Robert Marshall M.D. Ph.D.; CLIA# [id number] 14 REFERENCE VALUE 18-144 (non-) Test Performed by: [facility] [place] [address] Risk Tech: Robert Marshall M.D. Ph.D.; CLIA# [id number] 15 Because ethnic data is not always readily [...] 15-29 5 Kidney failure <15 (or dialysis) 16 [facility] Severe Sepsis and Septic Shock Management Bundle Measure requires all lactic acids initially measuring >2.0 mmol/L be repeated. 17 Standard intensity warfarin therapeutic range: 2.0-3.0 High intensity warfarin therapeutic range: 2.5-3.5 Procedures Date Code Description Status 09/26/2019 40837 EKG Tracing & Interpretation Completed 09/20/2019 93168 Holter Monitor Review (24 hr)dr review & interp only Completed 09/19/2019 05881 ECG Monitor/Recording W/Visual Superimposition Scanning Completed 09/19/2019 24989 ECG Monitor/Recording W/Visual Superimposition Scanning Completed 09/08/2019 82833 EEG Recording Awake & Drowsy Completed 08/15/2019 37917 Nerve Conduction 03-04 Studies Completed 08/15/2019 72614 Needle Electromyography Complete, Five Or More Muscles Completed Studied 07/10/2019 92593 EEG Recording Awake & Drowsy Completed 05/31/2019 08327 EEG Recording Awake & Drowsy Completed 06/24/2010 [id number] Mammogram Completed Medical Devices Description No Information Available Encounters Type Date Location Provider Dx Diagnosis Office Visit 10/17/2019 [facility] Damon Cuevas, S53.401A Unspecified sprain 2:00p at [place] MD of right elbow, initial encounter S63.591A Other specified sprain of right wrist, initial encounter S46.011D Strain of musc/tend the rotator cuff of right shoulder, subs M25.521 Pain in right elbow M25.531 Pain in right wrist R29.6 Repeated falls Office Visit 10/13/2019 11:40a [facility] Internal Ojan M25.511 Pain in right Medicine - [address], DO shoulder R Office Visit 10/12/2019 2:00p [facility] Zarina SRona R55 Syncope and Foster, N.P. 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 R55 Syncope and collapse Z72.0 Tobacco use R00.2 Palpitations Office Visit 09/15/2019 [facility] Leandro Gagnon, G40.209 Local-rel 10:00a Clinic [employer] SYSTEM[employer] PROGRAM[employer] symptc epi w cmplx prt seiz,not ntrct,w/o stat epi Z79.899 Other long chain beamer (current) drug therapy Office Visit 09/07/2019 2:00p [facility] Internal Vanessa White, R55 Syncope and Medicine - [facility] Tima, FACP collapse G40.89 Other seizures G89.4 Chronic pain syndrome F17.210 Nicotine dependence, cigarettes, uncomplicated Office Visit 09/06/2019 2:00p [facility] Galeas Coch, 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 R68.82 Decreased libido N92.6 Irregular menstruation, unspecified R53.83 Other fatigue Office Visit 09/01/2019 11:30a [facility] Leandro Gagnon, R55 Syncope and [employer] SYSTEM[employer] PROGRAMMER collapse G43.009 Migraine w/o aura, not intractable, w/o status migrainosus R53.83 Other fatigue Office Visit 08/29/2019 1:15p [facility] Damon S46.011D Strain of at Lidia Cuevas MD musc/tend the rotator cuff of right shoulder, subs Office Visit 08/22/2019 1:15p [facility] Jose S46.011D Strain of at Lidia Cuevas MD musc/tend the rotator cuff of right shoulder, subs G56.21 Lesion of ulnar nerve, right upper limb G56.22 Lesion of ulnar nerve, left upper limb Office Visit 08/22/2019 [facility] Bagum Gilson G89.4 Chronic pain 3:00p Medicine - [facility] Gulshad, [employer] SYSTEMS PROGRAMMER syndrome Office Visit 08/07/2019 [facility] [facility]iana M75.41 Impingement 1:30p Orthopedics at [facility] Don syndrome of right [place] shoulder S46.011A Strain of musc/tend the rotator cuff of right shoulder, init M25.511 Pain in right shoulder Office Visit 07/24/2019 2:45p [facility] Tory Weathers M25.511 Pain in right at [facility] shoulder S46.011A Strain of musc/tend the rotator cuff of right shoulder, init M75.41 Impingement syndrome of right shoulder Office Visit 07/21/2019 [facility] Le[facility] Gagnon, G43.009 Migraine w/o 11:00a Clinic [employer] PRO[employer] aura, not intractable, w/o status migrainosus R55 Syncope and collapse F07.81 Postconcussional syndrome Office Visit 07/19/2019 11:15a [facility] Jose S46.011D Strain of at Lidia Cuevas MD musc/tend the rotator cuff of right shoulder, subs G56.01 Carpal tunnel syndrome, right upper limb G56.21 Lesion of ulnar nerve, right upper limb Office Visit 06/28/2019 [facility] Leandro Kalin, R56.9 Unspecified 3:00p Clinic [employer] PRO[employer] convulsions G43.009 Migraine w/o aura, not intractable, w/o status migrainosus M54.2 Cervicalgia Office Visit 05/16/2019 2:40p [facility] Internal Maritza G40.89 Other seizures Medicine - Lorraine Del Cid M.D. D35.2 Benign neoplasm of pituitary gland Z72.0 Tobacco use G50.1 Atypical facial pain Assessments Date Code Description Provider 10/17/2019 S53.401A Unspecified sprain of right elbow, Damon Cuevas MD initial encounter 10/17/2019 S63.591A Other specified sprain of right Damon Cuevas MD wrist, initial encounter 10/17/2019 S46.011D Strain of muscle(s) and tendon(s) of Damon Cuevas MD the rotator cuff of right shoulder, subsequent encounter 10/17/2019 M25.521 Pain in right elbow Damon Cuevas MD 10/17/2019 M25.531 Pain in right wrist Damon Cuevas MD 10/17/2019 R29.6 Repeated falls Damon Cuevas MD 10/16/2019 M25.561 Pain in right knee Darren Clemens MD 10/16/2019 M79.671 Pain in right foot Darren Clemens MD 10/16/2019 G40.909 Epilepsy, unspecified, not Darren Clemens MD intractable, without status epilepticus 10/16/2019 K03.81 Cracked tooth Darren Clemens MD 10/13/2019 M25.511 Pain in right shoulder Joan Clay, 10/12/2019 R55 Syncope and collapse Zarina Rubio, N.P. 10/12/2019 Z72.0 Tobacco use Zarina Rubio, N.P. 10/12/2019 R00.2 Palpitations Zarina Rubio, N.P. 09/26/2019 I73.00 Raynaud's syndrome without gangrene [place] Cai M.D. 09/26/2019 R55 Syncope and collapse [place] Cai M.D. 09/26/2019 Z72.0 Tobacco use Mitlon Cai M.D. 09/26/2019 R00.2 Palpitations [place] Cai M.D. 09/25/2019 K03.81 Cracked tooth Darren Clemens MD 09/25/2019 G89.4 Chronic pain syndrome Darren Clemens MD 09/25/2019 M54.5 Low back pain Darren Clemens MD 09/25/2019 M25.511 Pain in right shoulder Darren Clemens MD 09/25/2019 R20.0 Anesthesia of skin Darren Clemens MD 09/25/2019 I73.00 Raynaud's syndrome without gangrene Darren Clemens MD 09/25/2019 R21 Rash and other nonspecific skin Darren Clemens MD eruption 09/20/2019 R55 Syncope and collapse Benito Guido, DO FAC 09/19/2019 R55 Syncope and collapse Benito Guido, DO [facility] 09/19/2019 R55 Syncope and collapse Nurse Visit cc 09/15/2019 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, not intractable, without status epilepticus 09/15/2019 Z79.899 Other long chain beamer (current) drug Leandro Gagnon NP therapy 09/08/2019 G40.209 Localization-related (focal) Kamaljit Florentino M.D. (partial) symptomatic epilepsy and epileptic syndromes with complex partial seizures, not intractable, without status epilepticus 09/07/2019 R55 Syncope and collapse Vanessa White M.D., FACP 09/07/2019 G40.89 Other seizures Vanessa White M.D., FACP 09/07/2019 G89.4 Chronic pain syndrome Vanessa White M.D., FACP 09/07/2019 F17.210 Nicotine dependence, cigarettes, Vanessa White M.D., FACP uncomplicated 09/06/2019 D35.2 Benign neoplasm of pituitary gland Adal Mendieta MD 09/06/2019 R68.82 Decreased libido Adal Mendieta MD 09/06/2019 N92.6 Irregular menstruation, unspecified Adal Mendieta MD 09/06/2019 R53.83 Other fatigue Adal Mendieta MD 09/01/2019 R55 Syncope and collapse Leandrofarooq Gagnon, [employer]2 SYSTEMS PROGRAMMER 09/01/2019 G43.009 Migraine without aura, not Leandro Kalin, [employer] SYSTEMS PROGRAMMER intractable, without status migrainosus 09/01/2019 R53.83 Other fatigue Leandro Gagnon, [employer] SYSTEMS PROGRAMMER 08/29/2019 S46.011D Strain of muscle(s) and tendon(s) of Damon Cuevas MD the rotator cuff of right shoulder, subsequent encounter 08/22/2019 G89.4 Chronic pain syndrome Edd Mcgeeemerita, JANETH 08/22/2019 S46.011D Strain of muscle(s) and [...] G43.009 Migraine without aura, not Leandro Gagnon, [employer]2 SYSTEMS PROGRAMMER intractable, without status migrainosus 07/21/2019 R55 Syncope and collapse Leandro Gagnon, DB2 SYSTEMS PROGRAMMER 07/21/2019 F07.81 Postconcussional syndrome Leandro Gagnon, [employer]2 SYSTEMS PROGRAMMER 07/19/2019 S46.011D Strain of muscle(s) and tendon(s) of Damon Cuevas MD the rotator cuff of right shoulder, subsequent encounter 07/19/2019 G56.01 Carpal tunnel syndrome, right upper Damon Cuevas MD limb 07/19/2019 G56.21 Lesion of ulnar nerve, right upper Damon Cuevas MD limb 07/10/2019 R56.9 Unspecified convulsions Kamaljit Florentino M.D. 06/28/2019 R56.9 Unspecified convulsions Leandro Gagnon, DB2 SYSTEMS PROGRAMMER 06/28/2019 G43.009 Migraine without aura, not Leandro [...] Del Cid M.D. Plan of Treatment Future Appointment(s):11/14/2019 11:30 am - Damon Cuevas MD at [facility] at [email or web address]/31/2019 11:00 am - Aron Holland M.D. at [facility]10/20/2019 11:30 am - Leandro Gagnon NP at [facility]10/16/2019 - Darren Clemens MDM25.561 Pain in right kneeNew Xrays: Knee Right 1-2 VWS, Ordered: 10/16/19M79.671 Pain in right footNew Xrays:Foot Right 3+ VWS, Ordered: 10/16/19G40.909 Epilepsy, unspecified, not intractable, without status [id number] Cracked tooth Functional Status Description No Information Available Mental Status Description No Information Available Referrals Refer to Reason for Referral Status Appt Date Julienne Crews MD [facility], Sent 10/31/2019 [address], [place] [address] [phone] Darren Clemens MD Needs to establish care with a PCP to be cleared Scheduled for upcoming dental and shoulder surgery. [address] [place] [address] [phone] [place] Cai MD Previous patient; describes syncopal events, Sent lightheadedness, dizziness [address] [place] [address] [phone] Adal Mendieta MD Patient Notified 09/06/[address] [place] [address] [phone] Nelson Schmid M.D. Sent 06/28/2019 [address] [place] [address] [place] [address] [phone]
--- OUTSIDE RECORDS SUMMARY | 2019-10-25 11:48 | XMS REPORT | Continuity of Care Document ---
:1985 External Reference #:[id number] Author Name Leandro Gagnon, JANETH Address [address] [facility], [place] [address] Care Team Providers Name Role Phone Destin Mayer M.D. - Family Medicine Care Team Information Sonogram Technician Jimmy Becker DO - Interventional Care Team Information Sonogram Technician Pain Medicine [facility] - Sleep Disorder Care Team Information Sonogram Technician [phone] Diagnostic Dwayne Fermin MD - Orthopaedic Care Team Information Sonogram Technician Surgery Milton Moreno MD - Otolaryngology Care Team Information Sonogram Technician Mars Snyder MD - Interventional Care Team Information Sonogram Technician [phone] Pain Medicine Belgica Cueto MD - Endocrinology, Care Team Information Sonogram Technician [phone] Diabetes & Metabolism Kamaljit Soria M.D. - Neurological Care Team Information Sonogram Technician Surgery Adal Mendieta MD - Endocrinology, Care Team Information Sonogram Technician Diabetes & Metabolism Nelson Schmid M.D. - Neurology Care Team Information Sonogram Technician Darern Clemens MD - Hospitalist Care Team Information Sonogram Technician [phone] Problems Active Problems Provider Date Congenital spondylolysis [...] 09/26/2019 Acetate mouth daily N.P. 0.1mg Tablets Acetaminophen-Codeine take 1 tab q8 21tabs G89.4 [...] M54.5 Leatha Jenkins, 2012 fracture, kyphosis Tima [facility] E888.9 Zofran take 1 tab every 6 Unknown 4mg Tablets hours as needed for vomiting. Omeprazole 1 by mouth every day 30caps Maritza Del Cid, 40mg Capsules DR as needed M.DRona History Medications Alprazolam take one tablet 30tabs Kamaljit Mccoy 10/06/2019 - 0.5mg Tablets by mouth, as Tima Florentino 10/11/2019 needed for insomnia. code c mdd 1 Fludrocortisone 1 by mouth every 30tabs I95.1 Milton Huynh 09/26/2019 - Acetate day Tima Cai 10/11/2019 0.1mg Tablets Lamotrigine take 3 tabs by 42tabs Kamaljit Mccoy 09/25/2019 - 25mg Tablets mouth twice a Tima Florentino 10/20/2019 day from one week, starting 10/12/2019 Alprazolam take one tab by 30tabs G40.209 Kamaljit Mccoy 09/15/2019 - 0.25mg Tablets mouth at Tima Florentino 10/03/2019 bedtime, as needed for insomnia. mdd 1 Lamotrigine 2 tabs by mouth 120tabs Kamaljit Mccoy 09/07/2019 - 25mg Tablets twice a day Tima Florentino 09/25/2019 Prednisone use as directed 1dara Faria 07/24/2019 - 5mg (21) JUNITO Don M.D. 08/22/2019 Amitriptyline HCL take 4 tabs by 120tabs G43.009 Kamaljit Mccoy 07/21/2019 - 10mg mouth at bedtime Tima Florentino 09/04/2019 Tablets Amitriptyline HCL take one tab po 120tabs G43.009 Kamaljit SRona 07/21/2019 - 10mg at hs for one [...] # [id number] Given 05/04/2013 Flu Vaccine NOS 78830 Given 10/27/2012 Tdap - Tetanus/Diptheria/Acellular Pertussis [id number] Vital Signs Date Vital Result Comment 10/17/2019 [...] Result H/L Range Note Laboratory test 09/25/2019 [facility] Vitamin B12 <pending> finding [address] [place] [address] [phone] CBC Auto Diff 09/08/2019 [facility] White Blood 5.4 10^3/uL Normal 3.5-10.[address] [place] [address] [phone] Red Blood Count 4.56 10^6/uL Normal 3.70-4.87 [...] Blood Cells % 0.1 Comp Metabolic 09/08/2019 [facility] Sodium 135 mmol/L Normal 135-[address] [place] [address] [phone] Potassium 4.1 mmol/L Normal 3.5-5.0 Chloride 104 [...] Egfr 100.0 >60 1 Laboratory test 09/08/2019 [facility] Hemoglobin A1c 5.2 % Normal 4.0-5.6 2 finding 101 (Glyco HGB) [place], [place] [id number] [phone] T3 Total 102 ng/dL Normal 87-178 Thyroxine 6.59 g/dL Normal 6.09-12.23 Thyroid 09/08/2019 [facility] Thyroid 2.06 Normal <9 Autoantibodies 101 Peroxidase IU/[place] [address] Antibodies [phone] Thyroglobulin Antibody II 0.0 IU/mL <4.0 Tick-Borne 09/08/2019 [facility] Anaplasma <1:64 <1:64 3 Disease AB [place] [address] [phone] Babesia microti IgG Ab, S <1:64 titer <1:64 4 Ehrlichia chaffeensis IgG AB <1:64 titer <1:64 5 Lyme Disease Serology Negative Negative 6 Laboratory test 09/08/2019 [facility] Erythrocyte Sed 5 mm/Hr Normal 0-[address] [place] [address] [phone] C Reactive Protein 4.18 mg/L Normal <8.01 Nuclear AB (Carmita) By Ifa Igg <1:80 (Negative) 7 FSH And LH 09/08/2019 [facility] FSH (Follicle Stim 6.4 mIU/mL [address] Hormone) [place] [address] [phone] LH (Lutenizing Hormone) 5.4 mIU/mL 9 Laboratory test finding 09/08/2019 [facility] Estradiol 45 pg/ mL [address] [place] [address] [phone] Dhea Sulfate 60 g/dL 45-295 11 TSH (Thyroid Stim Horm) 1.30 mcIU/mL Normal 0.34-5.60 Testosterone Total < 10.00 ng/dL Normal 8-60 Acth 17 pg/mL 12 Insulin-Like Growth 09/08/2019 [facility] Insulin like 166 ng/ mL 59-[address] [place] [address] I [phone] Igf1 Z-score 0.52 SD 13 Laboratory test 09/08/2019 [facility] Prolactin 24.5 ng/mL Normal 1.0-25.0 finding [address] [place] [address] [phone] Free T4 (Free Thyroxine) 0.87 ng/dL Normal 0.61-1.12 Sex Hormone Binding Globulin 34 nmol/L 14 Urinalysis Profile 06/11/2019 [facility] Urine Color Yellow [address] [place] [address] [phone] Urine Appearance Clear Urine Specific Hanahan 1.011 Normal 1.010-1.030 Urine pH 5.0 Normal 5-9 Urine Urobilinogen Negative Negative Urine Ketones Negative Negative Urine Protein Negative Negative Urine Leukocytes Negative Negative Urine Blood Negative Negative Urine Nitrite Negative Negative Urine Bilirubin Negative Negative Urine Glucose Negative Negative Laboratory test 06/11/2019 [facility] Magnesium 1.8 mg/dL Low 1.9-2.7 finding [address] [place] [address] [phone] Comp Metabolic 06/11/2019 [facility] Sodium 134 mmol/L Low 135 -145 Panel [address] [place] [address] [phone] Potassium 3.5 mmol/L Normal 3.5-5.0 Chloride 102 [...] Egfr 88.4 >60 15 Laboratory test 06/11/2019 [facility] Lactic Acid 0.9 mmol/L Normal 0.5-2.0 [address] [place] [address] [phone] CBC Auto Diff 06/11/2019 [facility] White Blood 9.6 Normal 3.5 -10.[address] Count 10^3/[place] [address] [phone] Red Blood Count 4.17 10^6/uL Normal 3.70-4.87 [...] Red Blood Cells % 0.0 Inr/Protime 06/11/2019 [facility] Inr 1.06 Normal 0.82-1.[address] [place] [address] [phone] Laboratory test 05/16/2019 [facility] Prolactin 19.7 Normal 1.0-25.[address] ng/[place] [address] [phone] TSH (Thyroid Stim Horm) 1.36 mcIU/mL Normal [...] in selective patients <6.0%. Please refer to [place] [employer] diabetic care guidelines for further information. 3 ADDITIONAL INFORMATION This test was developed using an analyte specific reagent. Its performance characteristics were determined by [facility] in a manner consistent with CLIA requirements. This test has not been cleared or approved by the U.S. Food and Drug Administration. 4 ADDITIONAL INFORMATION This test was developed using an analyte specific reagent. Its performance characteristics were determined by [facility] in a manner consistent with CLIA requirements. This test has not been cleared or approved by the U.S. Food and Drug Administration. 5 ADDITIONAL INFORMATION This test was developed using an analyte specific reagent. Its performance characteristics were determined by [facility] in a manner consistent with CLIA [...] tested in 2-4 weeks. Test Performed by: [facility] [address] Online Facilitator: Robert Marshall M.D. Ph.D.; CLIA# [id number] 7 <1:80 (Negative) REFERENCE VALUE <1:80 (Negative) Test Performed by: [facility] [address] Online Facilitator: Robert Marshall M.D. Ph.D.; CLIA# [id number] 8 Normally menstruating females - Follicular phase [...] + 12 15-115 11 Test Performed by: [facility] [address] Online Facilitator: Robert Marshall M.D. Ph.D.; CLIA# [id number] 12 REFERENCE VALUE 7.2-63 (a.m. collection) Test Performed by: [facility] [address] Online Facilitator: Robert Marshall M.D. Ph.D.; CLIA# [id number] 13 REFERENCE VALUE -2.0 - +2.0 ADDITIONAL INFORMATION This test was developed and its performance characteristics determined by [facility] in a manner consistent with CLIA requirements. This test has not been cleared or approved by the U.S. Food and Drug Administration. Test Performed by: [facility] [address] Online Facilitator: Robert Marshall M.D. Ph.D.; CLIA# [id number] 14 REFERENCE VALUE 18-144 (non-) Test Performed by: [facility] [address] Online Facilitator: Robert Marshall M.D. Ph.D.; CLIA# [id number] 15 Because ethnic data is not always [...] 5 Kidney failure <15 (or dialysis) 16 [facility] Severe Sepsis and Septic Shock Management Bundle Measure requires all lactic acids initially measuring >2.0 mmol/L be repeated. 17 Standard intensity warfarin therapeutic range: 2.0-3.0 High intensity warfarin therapeutic range: 2.5-3.5 Procedures Date Code Description Status 09/26/2019 04102 EKG Tracing & Interpretation Completed 09/20/2019 44712 Holter Monitor Review (24 hr)dr review & interp only Completed 09/19/2019 59579 ECG Monitor/Recording W/Visual Superimposition Scanning Completed 09/19/2019 49393 ECG Monitor/Recording W/Visual Superimposition Scanning Completed 09/08/2019 00692 EEG Recording Awake & Drowsy Completed 08/15/2019 55646 Nerve Conduction 03-04 Studies Completed 08/15/2019 83409 Needle Electromyography Complete, Five Or More Muscles Completed Studied 07/10/2019 99736 EEG Recording Awake & Drowsy Completed 05/31/2019 15881 EEG Recording Awake & Drowsy Completed 06/24/2010 33028808 Mammogram Completed Medical Devices Description No Information Available Encounters Type Date Location Provider Dx Diagnosis Office Visit 10/17/2019 [facility] Damon Cuevas, S53.401A Unspecified sprain 2:00p at [place] MD of right elbow, initial encounter S63.591A Other specified sprain of right wrist, initial encounter S46.011D Strain of musc/tend the rotator cuff of right shoulder, subs M25.521 Pain in right elbow M25.531 Pain in right wrist R29.6 Repeated falls Office Visit 10/13/2019 11:40a [facility] Internal Joan M25.511 Pain in right Medicine - [address], DO shoulder R Office Visit 10/12/2019 2:00p [facility] Zarina SRona R55 Syncope and Foster, N.P. 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 R55 Syncope and collapse Z72.0 Tobacco use R00.2 Palpitations Office Visit 09/15/2019 [facility] Leandro Gagnon, G40.209 Local-rel 10:00a Clinic ORTHO ASSISTANT symptc epi w cmplx prt seiz,not ntrct,w/o stat epi Z79.899 Other intermission coordinator (current) drug therapy Office Visit 09/07/2019 2:00p [facility] Internal Vanessa White, R55 Syncope and Medicine - Ccmob Tima, FACP collapse G40.89 Other seizures G89.4 Chronic pain syndrome F17.210 Nicotine dependence, cigarettes, uncomplicated Office Visit 09/06/2019 2:00p [facility] Galeas Coch, 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 R68.82 Decreased libido N92.6 Irregular menstruation, unspecified R53.83 Other fatigue Office Visit 09/01/2019 11:30a [facility] Leandro Gagnon, R55 Syncope and ORTHO ASSISTANT collapse G43.009 Migraine w/o aura, not intractable, w/o status migrainosus R53.83 Other fatigue Office Visit 08/29/2019 1:15p [facility] Damon S46.011D Strain of at Lidia Cuevas MD musc/tend the rotator cuff of right shoulder, subs Office Visit 08/22/2019 1:15p [facility] Jose S46.011D Strain of at Lidia Cuevas MD musc/tend the rotator cuff of right shoulder, subs G56.21 Lesion of ulnar nerve, right upper limb G56.22 Lesion of ulnar nerve, left upper limb Office Visit 08/22/2019 [facility] Internal Bagum Gilson G89.4 Chronic pain 3:00p Medicine - [facility] Gulshad, ORTHO ASSISTANT syndrome Office Visit 08/07/2019 [facility] M75.41 Impingement 1:30p Orthopedics at [facility] Don syndrome of right [place] shoulder S46.011A Strain of musc/tend the rotator cuff of right shoulder, init M25.511 Pain in right shoulder Office Visit 07/24/2019 2:45p [facility] Tory Weathers M25.511 Pain in right at [facility] shoulder S46.011A Strain of musc/tend the rotator cuff of right shoulder, init M75.41 Impingement syndrome of right shoulder Office Visit 07/21/2019 [facility] Leandro Gagnon, G43.009 Migraine w/o 11:00a Clinic ORTHO ASSISTANT aura, not intractable, w/o status migrainosus R55 Syncope and collapse F07.81 Postconcussional syndrome Office Visit 07/19/2019 11:15a [facility] Damon S46.011D Strain of at Lidia Cuevas MD musc/tend the rotator cuff of right shoulder, subs G56.01 Carpal tunnel syndrome, right upper limb G56.21 Lesion of ulnar nerve, right upper limb Office Visit 06/28/2019 [facility] Leandro Gagnon, R56.9 Unspecified 3:00p Clinic ORTHO ASSISTANT convulsions G43.009 Migraine w/o aura, not intractable, w/o status migrainosus M54.2 Cervicalgia Office Visit 05/16/2019 2:40p [employer] Internal Maritza G40.89 Other seizures Medicine - [...] M25.511 Pain in right shoulder Joan Clay, DO 10/12/2019 R55 Syncope and collapse Zarina Rubio, N.P. 10/12/2019 Z72.0 Tobacco use Zarina Rubio, N.P. 10/12/2019 R00.2 Palpitations Zarina Rubio, N.P. 09/26/2019 I73.00 Raynaud's syndrome without gangrene Milton Cai M.D. 09/26/2019 R55 Syncope and collapse Milton Cai M.D. 09/26/2019 Z72.0 Tobacco use Milton Cai M.D. 09/26/2019 R00.2 Palpitations Milton Cai [...] R55 Syncope and collapse Benito Guido, DO [facility] 09/19/2019 R55 Syncope and collapse Nurse Visit cc 09/15/2019 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, not intractable, without status epilepticus 09/15/2019 Z79.899 Other mcc (current) drug Leandro Gagnon NP therapy 09/08/2019 G40.209 Localization-related (focal) Kamaljit Florentino M.D. (partial) symptomatic epilepsy and epileptic syndromes with complex partial seizures, not intractable, without status epilepticus 09/07/2019 R55 Syncope and collapse Vanessa White M.D., FAC 09/07/2019 G40.89 Other seizures Vanessa White M.D., FACP 09/07/2019 G89.4 Chronic pain syndrome Vanessa White M.D., FAC 09/07/2019 F17.210 Nicotine dependence, cigarettes, Vanessa White M.D., FACP uncomplicated 09/06/2019 D35.2 Benign neoplasm of pituitary gland Adal Mendieta MD 09/06/2019 R68.82 Decreased libido Adal Mendieta MD 09/06/2019 N92.6 Irregular menstruation, unspecified Adal Mendieta MD 09/06/2019 R53.83 Other fatigue Adal Mendieta MD 09/01/2019 R55 Syncope and collapse Leandro Gagnon, ORTHO ASSISTANT 09/01/2019 G43.009 Migraine without aura, not Leandro Kalin, ORTHO ASSISTANT intractable, without status migrainosus 09/01/2019 R53.83 Other fatigue Leandro Gagnon, ORTHO ASSISTANT 08/29/2019 S46.011D Strain of muscle(s) and tendon(s) of Damon Cuevas MD the rotator cuff of right shoulder, subsequent encounter 08/22/2019 G89.4 Chronic pain syndrome Edd Riggins Ida, JANETH 08/22/2019 S46.011D Strain of muscle(s) and [...] G43.009 Migraine without aura, not Leandro Gagnon, ORTHO ASSISTANT intractable, without status migrainosus 07/21/2019 R55 Syncope and collapse Leandro Gagnon NP 07/21/2019 F07.81 Postconcussional syndrome Leandro Kalin, ORTHO ASSISTANT 07/19/2019 S46.011D Strain of muscle(s) and tendon(s) of Damon Cuevas MD the rotator cuff of right shoulder, subsequent encounter 07/19/2019 G56.01 Carpal tunnel syndrome, right upper Damon Cuevas MD limb 07/19/2019 G56.21 Lesion of ulnar nerve, right upper Damon Cuevas MD limb 07/10/2019 R56.9 Unspecified convulsions Kamaljit Florentino M.D. 06/28/2019 R56.9 Unspecified convulsions Leandro Gagnon, ORTHO ASSISTANT 06/28/2019 G43.009 Migraine without aura, not Leandrofarooq Gagnon, ORTHO ASSISTANT intractable, without status migrainosus 06/28/2019 M54.2 Cervicalgia [...] 11:30 am - Damon Cuevas MD at [facility] at [id number]/31/2019 11:00 am - Aron Holland M.D. at [facility] Functional Status Description No Information Available Mental Status Description No Information Available Referrals Refer to Reason for Referral Status Appt Date Julienne Crews MD raynaud's, Sent 10/31/[address] [place] [address] [phone] Darren Clemens MD Needs to establish care with a PCP to be cleared Scheduled for upcoming dental and shoulder surgery. [address] [place] [address] [phone] Milton Cai MD Previous patient; describes syncopal events, Sent lightheadedness, dizziness [address] [place] [address] [phone] Adal Mendieta MD Patient Notified 09/06/[address] [place] [address] [phone] Nelson Schmid M.D. Sent 06/28/[address] [place] [address] [place] [address] [phone]
--- OUTSIDE RECORDS SUMMARY | 2019-10-25 11:48 | XMS REPORT | Continuity of Care Document ---
:1985 External Reference #:[id number] Author Name Damon Cuevas MD (transmitted by agent of provider Suzie Jaimes) Address [address] [place] [address] Care Team Providers Name Role Phone Destin Mayer M.D. - Family Medicine Care Team Information Mental Health Therapist [phone] Jimmy Becker DO - Interventional Care Team Information Mental Health Therapist Pain Medicine [facility] - Sleep Disorder Care Team Information Mental Health Therapist Diagnostic Dwayne Fermin MD - Orthopaedic Care Team Information Mental Health Therapist [phone] Surgery Milton Moreno MD - Otolaryngology Care Team Information Mental Health Therapist Mars Snyder MD - Interventional Care Team Information Mental Health Therapist [phone] Pain Medicine Belgica Cueto MD - Endocrinology, Care Team Information Mental Health Therapist Diabetes & Metabolism Kamaljit Soria M.D. - Neurological Care Team Information Mental Health Therapist Surgery Adal Mendieta MD - Endocrinology, Care Team Information Mental Health Therapist Diabetes & Metabolism Nelson Schmid M.D. - Neurology Care Team Information Mental Health Therapist [phone] Darren Clemens MD - Hospitalist Care Team Information Mental Health Therapist [phone] Problems Active Problems Provider Date Congenital spondylolysis [...] Onset: 04/12/2015 Moderate recurrent major depression Hernandez Rcoha M.D. Onset: 12/25/2015 Thoracic and lumbosacral neuritis [...] 09/25/2019 25mg Tablets mouth twice a day iTma Florentino from one week, starting 10/12/2019 Acetaminophen-Codeine [...] M54.5 Leatha Jenkins, 2012 fracture, kyphosis [facility] E888.9 Zofran take 1 tab every 6 [...] # [id number] Given 05/04/2013 [place]OS [address]807 Given 10/27/2012 Tdap - Tetanus/Diptheria/Acellular Pertussis [id number] Vital Signs Date Vital Result Comment 10/17/2019 [...] Result H/L Range Note Laboratory test 09/25/2019 [facility] Vitamin B12 <pending> finding [address] [place] [address] [phone] CBC Auto Diff 09/08/2019 [facility] White Blood 5.4 10^3/uL Normal 3.5-10.[address] [place] [address] [phone] Red Blood Count 4.56 10^6/uL Normal 3.70-4.87 [...] Blood Cells % 0.1 Comp Metabolic 09/08/2019 [facility] Sodium 135 mmol/L Normal 135-[address] [place] [address] [phone] Potassium 4.1 mmol/L Normal 3.5-5.0 Chloride 104 [...] Egfr 100.0 >60 1 Laboratory test 09/08/2019 [facility] Hemoglobin A1c 5.2 % Normal 4.0-5.[address] (Glyco HGB) [place] [address] [phone] T3 Total 102 ng/dL Normal 87-178 Thyroxine 6.59 g/dL Normal 6.09-12.23 Thyroid 09/08/2019 [facility] Thyroid 2.06 Normal <[address] Peroxidase IU/[place] [address] Antibodies [phone] Thyroglobulin Antibody II 0.0 IU/mL <4.0 Tick-Borne 09/08/2019 [facility] Anaplasma <1:64 <1:64 3 Disease AB phag[place] [address] [phone] Babesia microti IgG Ab, S <1:64 titer <1:64 4 Ehrlichia chaffeensis IgG AB <1:64 titer <1:64 5 Lyme Disease Serology Negative Negative 6 Laboratory test 09/08/2019 [facility] Erythrocyte Sed 5 mm/Hr Normal 0-[address] [place] [address] [phone] C Reactive Protein 4.18 mg/L Normal <8.01 Nuclear AB (Carmita) By Ifa Igg <1:80 (Negative) 7 FSH And LH 09/08/2019 [facility] FSH (Follicle Stim 6.4 mIU/mL [address] DR[address] Hormone) [place] [address] [phone] LH (Lutenizing Hormone) 5.4 mIU/mL 9 Laboratory test finding 09/08/2019 [facility] Estradiol 45 pg/ mL [address] [place] [address] [phone] Dhea Sulfate 60 g/dL 45-295 11 TSH (Thyroid Stim Horm) 1.30 mcIU/mL Normal 0.34-5.60 Testosterone Total < 10.00 ng/dL Normal 8-60 Acth 17 pg/mL 12 Insulin-Like Growth 09/08/2019 [facility] Insulin like 166 ng/ mL 59-[address] [place] [address] I [phone] Igf1 Z-score 0.52 SD 13 Laboratory test 09/08/2019 [facility] Prolactin 24.5 ng/mL Normal 1.0-25.0 finding [address] [place] [address] [phone] Free T4 (Free Thyroxine) 0.87 ng/dL Normal 0.61-1.12 Sex Hormone Binding Globulin 34 nmol/L 14 Urinalysis Profile 06/11/2019 [facility] Urine Color Yellow [address] [place] [address] [phone] Urine Appearance Clear Urine Specific [place] 1.011 Normal 1.010-1.030 Urine pH 5.0 Normal 5-9 Urine Urobilinogen Negative Negative Urine Ketones Negative Negative Urine Protein Negative Negative Urine Leukocytes Negative Negative Urine Blood Negative Negative Urine Nitrite Negative Negative Urine Bilirubin Negative Negative Urine Glucose Negative Negative Laboratory test 06/11/2019 [facility] Magnesium 1.8 mg/dL Low 1.9-2.7 finding [address] [place] [address] [phone] Comp Metabolic 06/11/2019 [facility] Sodium 134 mmol/L Low 135 -145 Panel [address] [place] [address] [phone] Potassium 3.5 mmol/L Normal 3.5-5.0 Chloride 102 [...] Egfr 88.4 >60 15 Laboratory test 06/11/2019 [facility] Lactic Acid 0.9 mmol/L Normal 0.5-2.0 [address] [place] [address] [phone] CBC Auto Diff 06/11/2019 [facility] White Blood 9.6 Normal 3.5 -10.[address] Count 10^3/[place] [address] [phone] Red Blood Count 4.17 10^6/uL Normal 3.70-4.87 [...] Red Blood Cells % 0.0 Inr/Protime 06/11/2019 [facility] Inr 1.06 Normal 0.82-1.[address] [place] [address] [phone] Laboratory test 05/16/2019 [facility] Prolactin 19.7 Normal 1.0-25.[address] ng/[place] [address] [phone] TSH (Thyroid Stim Horm) 1.36 mcIU/mL Normal [...] in selective patients <6.0%. Please refer to [place] [employer] diabetic care guidelines for further information. 3 ADDITIONAL INFORMATION This test was developed using an analyte specific reagent. Its performance characteristics were determined by [facility] in a manner consistent with CLIA requirements. This test has not been cleared or approved by the U.S. Food and Drug Administration. 4 ADDITIONAL INFORMATION This test was developed using an analyte specific reagent. Its performance characteristics were determined by [facility] in a manner consistent with CLIA requirements. This test has not been cleared or approved by the U.S. Food and Drug Administration. 5 ADDITIONAL INFORMATION This test was developed using an analyte specific reagent. Its performance characteristics were determined by [facility] in a manner consistent with [...] tested in 2-4 weeks. Test Performed by: [facility] [place] [address] Catastrophe Claims Supervisor: Robert Marshall M.D. Ph.D.; CLIA# [id number] 7 <1:80 (Negative) REFERENCE VALUE <1:80 (Negative) Test Performed by: [place] [address] [employer] Claims Supervisor: Robert Marshall M.D. Ph.D.; CLIA# [id number] 8 Normally menstruating females - Follicular phase [...] + 12 15-115 11 Test Performed by: [place] [address] [employer] Claims Supervisor: Robert Marshall M.D. Ph.D.; CLIA# [id number] 12 REFERENCE VALUE 7.2-63 (a.m. collection) Test Performed by: [place] [address] [employer] Claims Supervisor: Robert Marshall M.D. Ph.D.; CLIA# [id number] 13 REFERENCE VALUE -2.0 - +2.0 ADDITIONAL INFORMATION This test was developed and its performance characteristics determined by [facility] in a manner consistent with CLIA requirements. This test has not been cleared or approved by the U.S. Food and Drug Administration. Test Performed by: [facility] [place] [address] Catastrophe Claims Supervisor: Robert Marshall M.D. Ph.D.; CLIA# [id number] 14 REFERENCE VALUE 18-144 (non-) Test Performed by: [facility] [place] [address] [employer] Claims Supervisor: Robert Marshall M.D. Ph.D.; CLIA# [id number] 15 Because ethnic data is not always [...] 5 Kidney failure <15 (or dialysis) 16 [facility] Severe Sepsis and Septic Shock Management Bundle Measure requires all lactic acids initially measuring >2.0 mmol/L be repeated. 17 Standard intensity warfarin therapeutic range: 2.0-3.0 High intensity warfarin therapeutic range: 2.5-3.5 Procedures Date Code Description Status 09/26/2019 16969 EKG Tracing & Interpretation Completed 09/20/2019 03897 Holter Monitor Review (24 hr)dr review & interp only Completed 09/19/2019 44504 ECG Monitor/Recording W/Visual Superimposition Scanning Completed 09/19/2019 55413 ECG Monitor/Recording W/Visual Superimposition Scanning Completed 09/08/2019 59969 EEG Recording Awake & Drowsy Completed 08/15/2019 31279 Nerve Conduction 03-04 Studies Completed 08/15/2019 40665 Needle Electromyography Complete, Five Or More Muscles Completed Studied 07/10/2019 58665 EEG Recording Awake & Drowsy Completed 05/31/2019 64766 EEG Recording Awake & Drowsy Completed 06/24/2010 [id number] Mammogram Completed Medical Devices Description No Information Available Encounters Type Date Location Provider Dx Diagnosis Office Visit 10/17/2019 [facility] Damon Cuevas, S53.401A Unspecified sprain 2:00p at [place] of right elbow, initial encounter S63.591A Other specified sprain of right wrist, initial encounter S46.011D Strain of musc/tend the rotator cuff of right shoulder, subs Office Visit 10/13/2019 11:40a [facility] Joan M25.511 Pain in right Medicine - [address], DO shoulder R Office Visit 10/12/2019 2:00p [facility] Zarina SRona R55 Syncope and Foster, N.P. 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 R55 Syncope and collapse Z72.0 Tobacco use R00.2 Palpitations Office Visit 09/15/2019 [facility] Le[facility] Gagnon, G40.209 Local-rel 10:00a Clinic DIRECT[facility] ADMINISTRATION symptc epi w cmplx prt seiz,not ntrct,w/o stat epi Z79.899 Other exterminator termite (current) drug therapy Office Visit 09/07/2019 2:00p [facility] Vanessa White, R55 Syncope and Medicine - Ramonob Tima, FACP collapse G40.89 Other seizures G89.4 Chronic pain syndrome F17.210 Nicotine dependence, cigarettes, uncomplicated Office Visit 09/06/2019 2:00p [facility] Galeas Coch, 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 R68.82 Decreased libido N92.6 Irregular menstruation, unspecified R53.83 Other fatigue Office Visit 09/01/2019 11:30a [facility] Leandro Gagnon, R55 Syncope and [employer]CTION [employer] ADMINISTRATION collapse G43.009 Migraine w/o aura, not intractable, w/o status migrainosus R53.83 Other fatigue Office Visit 08/29/2019 1:15p [facility] Damon S46.011D Strain of at Lidia Cuevas MD musc/tend the rotator cuff of right shoulder, subs Office Visit 08/22/2019 1:15p [facility] Damon S46.011D Strain of at Lidia Cuevas MD musc/tend the rotator cuff of right shoulder, subs G56.21 Lesion of ulnar nerve, right upper limb G56.22 Lesion of ulnar nerve, left upper limb Office Visit 08/22/2019 [facility] Bagum Gilson G89.4 Chronic pain 3:00p Medicine - Ccmob Ida, DIRECTOR SELECTION AND ADMINISTRATION syndrome Office Visit 08/07/2019 [facility] M75.41 Impingement 1:30p [facility] syndrome of right [place] shoulder S46.011A Strain of musc/tend the rotator cuff of right shoulder, init M25.511 Pain in right shoulder Office Visit 07/24/2019 2:45p [facility] Tory Weathers, M25.511 Pain in right at [facility]- shoulder S46.011A Strain of musc/tend the rotator cuff of right shoulder, init M75.41 Impingement syndrome of right shoulder Office Visit 07/21/2019 [facility] Gagn[facility], G43.009 Migraine w/o 11:00a Clinic [employer] ADMINISTRATION aura, not intractable, w/o status migrainosus R55 Syncope and collapse F07.81 Postconcussional syndrome Office Visit 07/19/2019 11:15a [facility] Damon S46.011D Strain of at Lidia Cuevas MD musc/tend the rotator cuff of right shoulder, subs G56.01 Carpal tunnel syndrome, right upper limb G56.21 Lesion of ulnar nerve, right upper limb Office Visit 06/28/2019 [facility] Gagnon, R56.9 Unspecified 3:00p Clinic [employer] ADMINISTRATION convulsions G43.009 Migraine w/o aura, not intractable, w/o status migrainosus M54.2 Cervicalgia Office Visit 05/16/2019 2:40p [facility] Maritza G40.89 Other seizures Medicine [...] rotator cuff of right shoulder, subsequent encounter 10/16/2019 M25.561 Pain in right knee Darren [...] R55 Syncope and collapse Benito Guido, DO FACC 09/19/2019 R55 Syncope and collapse Benito Guido, DO FACC 09/19/2019 R55 Syncope and collapse Nurse Visit cc 09/15/2019 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, not intractable, without status epilepticus 09/15/2019 Z79.899 Other exterminator termite (current) drug Leandro Gagnon NP therapy 09/08/2019 G40.209 Localization-related (focal) Kamaljit Florentino M.D. (partial) symptomatic epilepsy and epileptic syndromes with complex partial seizures, not intractable, without status epilepticus 09/07/2019 R55 Syncope and collapse Vanessa White M.D., FAC 09/07/2019 G40.89 Other seizures Vanessa White M.D., FAC 09/07/2019 G89.4 Chronic pain syndrome Vanessa White [...] Leandro Gagnon NP intractable, without status migrainosus 09/01/2019 R53.83 Other fatigue Leandro Gagnon NP 08/29/2019 S46.011D Strain of muscle(s) and tendon(s) of Damon Cuevas MD the rotator cuff of right shoulder, subsequent encounter 08/22/2019 G89.4 Chronic pain syndrome Edd Riggins JANETH Prieto 08/22/2019 S46.011D Strain of muscle(s) and tendon(s) [...] shoulder 07/21/2019 G43.009 Migraine without aura, not Lenadro Gagnon NP intractable, without status migrainosus 07/21/2019 [...] G43.009 Migraine without aura, not Leandro Gagnon, JANETH intractable, without status migrainosus 06/28/2019 M54.2 Cervicalgia Leandro Gagnon NP 05/31/2019 R56.9 Unspecified convulsions Law Herrera MD 05/16/2019 G40.89 Other seizures Maritza Del Cid M.D. 05/16/2019 D35.2 Benign neoplasm of pituitary gland Maritza Del Cid M.D. 05/16/2019 Z72.0 Tobacco use Maritza Del Cid M.D. 05/16/2019 G50.1 Atypical facial pain Maritza Del Cid M.D. Plan of Treatment Future Appointment(s):10/31/2019 11:00 am - Aron Holland M.D. at [facility]10/20/2019 11:30 am - Leandro Gagnon NP at [facility]10/17/2019 - Damon Cuevas MDS53.401A Unspecified sprain of right elbow, initial encounterNew Therapy:Physical StmaxuwV30.591A Other specified sprain of right wrist, initial srcwytombD07.011D Strain of muscle(s) and tendon(s) of the rotator cuff of right shoulder, subsequent encounter Functional Status Description No Information Available Mental Status Description No Information Available Referrals Refer to Reason for Referral Status Appt Date Julienne Crews MD [facility], Sent 10/31/[address] [place] [address] [phone] Darren Clemens MD Needs to establish care with a PCP to be cleared Scheduled for upcoming dental and shoulder surgery. [address] [place] [address] [phone] Milton Cai MD Previous patient; describes syncopal events, Sent lightheadedness, dizziness [address] [place] [address] [phone] Adal Mendieta MD Patient Notified 09/06/[address] [place] [address] [phone] Nelson Schmid M.D. Sent 06/28/[address] [place] [address] [phone]
--- OUTSIDE RECORDS SUMMARY | 2019-10-25 11:49 | XMS REPORT | Continuity of Care Document ---
:1985 External Reference #:[id number] Author Name Nurse Visit cc (transmitted by agent of provider Radha Garcia) Address [address] [place] [id number] Care Team Providers Name Role Phone Destin Mayer M.D. - Family Medicine Care Team Information Distillery Laborer Jimmy Becker DO - Interventional Care Team Information Distillery Laborer Pain Medicine [facility] - Sleep Disorder Care Team Information Distillery Laborer [phone] Diagnostic Dwayne Fermin MD - Orthopaedic Care Team Information Distillery Laborer [phone] Surgery Milton Moreno MD - Otolaryngology Care Team Information Distillery Laborer [phone] Mars Snyder MD - Interventional Care Team Information Distillery Laborer [phone] Pain Medicine Belgica Cueto MD - Endocrinology, Care Team Information Distillery Laborer Diabetes & Metabolism Kamaljit Soria M.D. - Neurological Care Team Information Distillery Laborer Surgery Rosa Torres M.D. - Family Medicine Care Team Information Distillery Laborer [phone] Adal Mendieta MD - Endocrinology, Care Team Information Distillery Laborer Diabetes & Metabolism Nelson Schmid M.D. - Neurology Care Team Information Distillery Laborer Problems Active Problems Provider Date Congenital spondylolysis of lumbosacral Leatha Jenkins M.D. Onset: 06/26/2011 region Syncope and collapse Miltonjelena Cai M.D. Onset: 06/21/2013 Anxiety state Milton [...] (10 or fewer cigarettes/day) Smoking Status Reviewed: 09/25/19 Light tobacco smoker (10 or fewer cigarettes/day) [...] Qnty Indications Ordering Date Provider Lamotrigine take 2 tabs by 56tabs Kamaljit Mccoy 09/25/2019 25mg mouth twice a day Tima Florentino Tablets for two weeks, then call. Acetaminophen-Codeine take 1 tab q8 hours 21tabs G89.4 Darren Clemens MD 09/24 #3 300-30mg Tablets Alprazolam take one tab by 30tabs G40.209 Kamaljit Mccoy 09/15/2019 0.25mg mouth at bedtime, Tima Florentino Tablets as needed for insomnia. mdd 1 Sumatriptan Succinate take 1 tablet by 12tabs [...] 06/22/2017 600mg Tablets day prn pain Provider Walker/Adult/Folding dx: h/o vertebral 1units M54.5 Leatha Jenkins, 2012 fracture, kyphosis Tima [facility] E888.9 Omeprazole 1 by mouth every 30caps Maritza Del Cid M.D. 40mg Capsules DR day History Medications Lamotrigine 2 tabs by mouth 120tabs Kamaljit Mccoy 09/07/2019 - 25mg twice a day Tima Florentino 09/25/2019 Tablets Prednisone use as directed 1unalfred Faria 07/24/2019 [...] # [id number] Given 05/04/2013 Flu Vaccine NOS 44404 Given 10/27/2012 Tdap - Tetanus/Diptheria/Acellular Pertussis [id number] Vital Signs Date Vital Result Comment 09/25/2019 2:16pm Height 69 inches 5'9" Weight 196.00 lb Heart Rate 83 /min BP Systolic Sitting 116 mmHg BP Diastolic Sitting 78 mmHg Body Temperature 97.9 F O2 % BldC Oximetry 98 % BMI (Body Mass Index) 28.9 kg/m2 09/15/2019 10:09am Height 69 inches 5'9" Weight 189.38 lb Heart Rate 52 /min BP Systolic Sitting 100 mmHg BP Diastolic Sitting 80 mmHg BMI (Body Mass Index) 28.0 kg/m2 Results Test Acquired Date Facility Test Result H/L Range Note Laboratory test 09/25/2019 [facility] Vitamin B12 <pending> finding [address] [place] [address] [phone] Order 09/19/2019 [facility] Holter <pending> [address] [place] [address] [phone] CBC Auto Diff 09/08/2019 [facility] White Blood 5.4 10^3/uL Normal 3.5-10.[address] [place] [address] [phone] Red Blood Count 4.56 10^6/uL Normal 3.70-4.87 [...] Blood Cells % 0.1 Comp Metabolic 09/08/2019 [facility] Sodium 135 mmol/L Normal 135-[address] [place] [address] [phone] Potassium 4.1 mmol/L Normal 3.5-5.0 Chloride 104 [...] Egfr 100.0 >60 1 Laboratory test 09/08/2019 [facility] Hemoglobin A1c 5.2 % Normal 4.0-5.[address] (Glyco HGB) [place] [address] [phone] T3 Total 102 ng/dL Normal 87-178 Thyroxine 6.59 g/dL Normal 6.09-12.23 Thyroid 09/08/2019 [facility] Thyroid 2.06 Normal <[address] Peroxidase IU/[place] [address] Antibodies [phone] Thyroglobulin Antibody II 0.0 IU/mL <4.0 Tick-Borne 09/08/2019 [facility] Anaplasma <1:64 <1:64 3 Disease AB 101 phagocytophil[place] [address] [phone] Babesia microti IgG Ab, S <1:64 titer <1:64 4 Ehrlichia chaffeensis IgG AB <1:64 titer <1:64 5 Lyme Disease Serology Negative Negative 6 Laboratory test 09/08/2019 [facility] Erythrocyte Sed 5 mm/Hr Normal 0-19 finding [address] [place] [address] [phone] C Reactive Protein 4.18 mg/L Normal <8.01 Nuclear AB (Carmita) By Ifa Igg <1:80 (Negative) 7 FSH And LH 09/08/2019 [facility] FSH (Follicle Stim 6.4 mIU/mL [address] DR[address] Hormone) [place] [address] [phone] LH (Lutenizing Hormone) 5.4 mIU/mL 9 Laboratory test finding 09/08/2019 [facility] Estradiol 45 pg/ mL 10 [place] [address] [phone] Dhea Sulfate 60 g/dL 45-295 11 TSH (Thyroid Stim Horm) 1.30 mcIU/mL Normal 0.34-5.60 Testosterone Total < 10.00 ng/dL Normal 8-60 Acth 17 pg/mL 12 Insulin-Like Growth 09/08/2019 [facility] Insulin like 166 ng/ mL 59-[address] [facility] [place] [place] [address] I [phone] Igf1 Z-score 0.52 SD 13 Laboratory test 09/08/2019 [facility] Prolactin 24.5 ng/mL Normal 1.0-25.0 [place] [address] [phone] Free T4 (Free Thyroxine) 0.87 ng/dL Normal 0.61-1.12 Sex Hormone Binding Globulin 34 nmol/L 14 Comp Metabolic Panel 06/11/2019 [facility] Sodium 134 mmol/L Low 135-145 [address] [place] [address] [phone] Potassium 3.5 mmol/L Normal 3.5-5.0 Chloride 102 [...] Egfr 88.4 >60 15 Laboratory test 06/11/2019 [facility] Magnesium 1.8 mg/dL Low 1.9-2.7 finding [address] [place] [address] [phone] Urinalysis 06/11/2019 [facility] Urine Color Yellow Profile [address] [place] [address] [phone] Urine Appearance Clear Urine Specific [place] 1.011 Normal 1.010-1.030 Urine pH 5.0 Normal 5-9 Urine Urobilinogen Negative Negative Urine Ketones Negative Negative Urine Protein Negative Negative Urine Leukocytes Negative Negative Urine Blood Negative Negative Urine Nitrite Negative Negative Urine Bilirubin Negative Negative Urine Glucose Negative Negative Laboratory test 06/11/2019 [facility] Lactic Acid 0.9 mmol/L Normal 0.5-2.0 16 finding [address] [place] [address] [phone] CBC Auto Diff 06/11/2019 [facility] White Blood 9.6 Normal 3.5 -10.8 [address] [facility] Count 10^3/[place] [address] [phone] Red Blood Count 4.17 10^6/uL Normal 3.70-4.87 [...] Red Blood Cells % 0.0 Inr/Protime 06/11/2019 [facility] Inr 1.06 Normal 0.82-1.[address] [place] [address] [phone] Laboratory test 05/16/2019 [facility] Prolactin 19.7 Normal 1.0-25.[address] ng/[place] [address] [phone] TSH (Thyroid Stim Horm) 1.36 mcIU/mL Normal [...] in selective patients <6.0%. Please refer to [place] [employer] diabetic care guidelines for further information. 3 ADDITIONAL INFORMATION This test was developed using an analyte specific reagent. Its performance characteristics were determined by [facility] in a manner consistent with CLIA requirements. This test has not been cleared or approved by the U.S. Food and Drug Administration. 4 ADDITIONAL INFORMATION This test was developed using an analyte specific reagent. Its performance characteristics were determined by [facility] in a manner consistent with CLIA requirements. This test has not been cleared or approved by the U.S. Food and Drug Administration. 5 ADDITIONAL INFORMATION This test was developed using an analyte specific reagent. Its performance characteristics were determined by [facility] in a manner consistent with CLIA [...] tested in 2-4 weeks. Test Performed by: [facility] [place] [address] Channel Cementer: Robert Marshall M.D. Ph.D.; CLIA# [id number] 7 <1:80 (Negative) REFERENCE VALUE <1:80 (Negative) Test Performed by: [facility] [place] [address] Channel Cementer: Robert Marshall M.D. Ph.D.; CLIA# [id number] 8 Normally menstruating females - Follicular phase [...] + 12 15-115 11 Test Performed by: [facility] [place] [address] Channel Cementer: Robert Marshall M.D. Ph.D.; CLIA# [id number] 12 REFERENCE VALUE 7.2-63 (a.m. collection) Test Performed by: [facility] [place] [address] Channel Cementer: Robert Marshall M.D. Ph.D.; CLIA# [id number] 13 REFERENCE VALUE -2.0 - +2.0 ADDITIONAL INFORMATION This test was developed and its performance characteristics determined by [facility] in a manner consistent with CLIA requirements. This test has not been cleared or approved by the U.S. Food and Drug Administration. Test Performed by: [facility] [place] [address] Channel Cementer: Robert Marshall M.D. Ph.D.; CLIA# [id number] 14 REFERENCE VALUE 18-144 (non-) Test Performed by: [place] [address] Channel Cementer: Robert Marshall M.D. Ph.D.; CLIA# [id number] 15 Because ethnic data is not always [...] 5 Kidney failure <15 (or dialysis) 16 [facility] Severe Sepsis and Septic Shock Management Bundle Measure requires all lactic acids initially measuring >2.0 mmol/L be repeated. 17 Standard intensity warfarin therapeutic range: 2.0-3.0 High intensity warfarin therapeutic range: 2.5-3.5 Procedures Date Code Description Status 09/20/2019 33571 Holter Monitor Review (24 hr)dr review & interp only Completed 09/19/2019 05763 ECG Monitor/Recording W/Visual Superimposition Scanning Completed 09/19/2019 97956 ECG Monitor/Recording W/Visual Superimposition Scanning Completed 08/15/2019 15924 Nerve Conduction 03-04 Studies Completed 08/15/2019 65108 Needle Electromyography Complete, Five Or More Muscles Completed Studied 07/10/2019 60927 EEG Recording Awake & Drowsy Completed 05/31/2019 42398 EEG Recording Awake & Drowsy Completed 06/24/2010 63099945 Mammogram Completed Medical Devices Description No Information Available Encounters Type Date Location Provider Dx Diagnosis Office Visit 09/07/2019 [facility] Vanessa hWite M.D., R55 Syncope and 2:00p Medicine - [facility] FACP collapse G40.89 Other seizures G89.4 Chronic pain syndrome F17.210 Nicotine dependence, cigarettes, uncomplicated Office Visit 09/06/2019 2:00p [facility] Galeas Coch, 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 R68.82 Decreased libido N92.6 Irregular menstruation, unspecified R53.83 Other fatigue Office Visit 09/01/2019 11:30a [facility] Leandro Gagnon, R55 Syncope and PROJECT MANAGEMENT PROFESSOR collapse G43.009 Migraine w/o aura, not intractable, w/o status migrainosus R53.83 Other fatigue Office Visit 08/29/2019 Tj Cuevas, S46.011D Strain of 1:15p Orthopedics at [facility]/tend the [place] rotator cuff of right shoulder, subs Office Visit 08/22/2019 [facility] Bagum Gilson G89.4 Chronic pain 3:00p Medicine - [facility] Arelyhavivian, PROJECT MANAGEMENT PROFESSOR syndrome Office Visit 08/22/2019 Tj Cuevas, S46.011D Strain of 1:15p Orthopedics at [facility]/tend the [place] rotator cuff of right shoulder, subs G56.21 Lesion of ulnar nerve, right upper limb G56.22 Lesion of ulnar nerve, left upper limb Office Visit 08/07/2019 [place] Giana M75.41 Impingement 1:30p Orthopedics at [facility] syndrome of right [place] shoulder S46.011A Strain of musc/tend the rotator cuff of right shoulder, init M25.511 Pain in right shoulder Office Visit 07/24/2019 2:45p [facility] Tory Weathers, M25.511 Pain in right at [facility] shoulder S46.011A Strain of musc/tend the rotator cuff of right shoulder, init M75.41 Impingement syndrome of right shoulder Office Visit 07/21/2019 [facility] Le[facility] Gagnon, G43.009 Migraine w/o 11:00a Clinic PROJECT MANAGEMENT PROFESSOR aura, not intractable, w/o status migrainosus R55 Syncope and collapse F07.81 Postconcussional syndrome Office Visit 07/19/2019 11:15a [facility] Damon S46.011D Strain of at [facility] candace Flower/tend the rotator cuff of right shoulder, subs G56.01 Carpal tunnel syndrome, right upper limb G56.21 Lesion of ulnar nerve, right upper limb Office Visit 06/28/2019 [facility] Leandro Gagnon, R56.9 Unspecified 3:00p Clinic PROJECT MANAGEMENT PROFESSOR convulsions G43.009 Migraine w/o aura, not intractable, w/o status migrainosus M54.2 Cervicalgia Office Visit 05/16/2019 2:40p [facility] Maritza G40.89 Other seizures Medicine - Lorraine Del Cid M.D. 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, not intractable, without status epilepticus 09/15/2019 Z79.899 Other long-term (current) drug Leandro Gagnon NP therapy 09/07/2019 [...] 09/01/2019 R55 Syncope and collapse Leandro Gagnon, PROJECT MANAGEMENT PROFESSOR 09/01/2019 G43.009 Migraine without aura, not Leandro Gagnon, PROJECT MANAGEMENT PROFESSOR intractable, without status migrainosus 09/01/2019 R53.83 Other fatigue Leandro Gagnon, PROJECT MANAGEMENT PROFESSOR 08/29/2019 S46.011D Strain of muscle(s) and tendon(s) [...] G43.009 Migraine without aura, not Leandro Gagnon, PROJECT MANAGEMENT PROFESSOR intractable, without status migrainosus 07/21/2019 R55 Syncope and collapse Leandro Gagnon PROJECT MANAGEMENT PROFESSOR 07/21/2019 F07.81 Postconcussional syndrome Leandro Gagnon, JANETH [...] am - Leandro Gagnon NP at [facility] Tmaqke5912/11/2019 9:00 am - Damon Cuevas MD at [facility] at [id number] 9:30 am - Damon Cuevas MD at [facility] at [id number] 11:00 am - Damon Cuevas MD at [facility] at [id number]/13/2019 7: 30 am - Damon Cuevas MD at [facility] at [id number]/25/2019 - Darren Clemens MDK03.81 Cracked bwevvB68.4 Chronic pain syndromeNew Medication:Acetaminophen- Codeine #3 300-30 mg - take 1 tab q8 hoursComments:No more than 4 gm of Tylenol from all sources a day.M54.5 Low back painNew Xrays:MRI Lumbar Spine W/O, Ordered: 09/25/19M25.511 Pain in right errbybzyP99.0 Anesthesia of skinI73.00 Raynaud's syndrome without gangreneReferral:Julienne Crews MD, [id number] Rash and other nonspecific skin eruption Functional Status Description No Information Available Mental Status Description No Information Available Referrals Refer to Reason for Referral Status Appt Date Julienne Crews MD raynaud's, Sent [address], [place] [address] [phone] Darren Clemens MD Needs to establish care with a PCP to be cleared Scheduled for upcoming dental and shoulder surgery. [address] [place] [address] [place] [id number] [phone] Milton Cai MD Previous patient; describes syncopal events, Sent lightheadedness, dizziness [address] [place] [address] [phone] Adal Mendieta MD Patient Notified 09/06/[address] [place] [address] [phone] Nelson Schmid M.D. Sent 06/28/2019 [address] [place] [address] [place] [address] [phone]
--- OUTSIDE RECORDS SUMMARY | 2019-10-25 11:49 | XMS REPORT | Continuity of Care Document ---
:1985 External Reference #:[id number] Author Name Adal Mendieta MD (transmitted by agent of provider Cristy Gabriel) Address [address] [address] Care Team Providers Name Role Phone Destin Mayer M.D. - Family Medicine Care Team Information Faculty Research Physician Jimmy Becker DO - Interventional Care Team Information Faculty Research Physician [phone] Pain Medicine [facility] - Sleep Disorder Care Team Information Faculty Research Physician [phone] Diagnostic Dwayne Fermin MD - Orthopaedic Care Team Information Faculty Research Physician Surgery Milton Moreno MD - Otolaryngology Care Team Information Faculty Research Physician Mars Snyder MD - Interventional Care Team Information Faculty Research Physician [phone] Pain Medicine Belgica Cueto MD - Endocrinology, Care Team Information Faculty Research Physician Diabetes & Metabolism Kamaljit Soria M.D. - Neurological Care Team Information Faculty Research Physician Surgery Rosa Torres M.D. - Family Medicine Care Team Information Faculty Research Physician Adal Mendieta MD - Endocrinology, Care Team Information Faculty Research Physician [phone] Diabetes & Metabolism Nelson Schmid M.D. - Neurology Care Team Information Faculty Research Physician [phone] Problems Active Problems Provider Date Congenital spondylolysis [...] Leatha Jenkins, 2012 fracture, kyphosis Tima [facility] E888.9 Omeprazole 1 by mouth every 30caps Maritza Del Cid M.D. 40mg Capsules DR day History Medications Lamotrigine 2 tabs by mouth 120tabs Kamaljit Mccoy 09/07/2019 - 25mg twice a day Tima Florentino 09/25/2019 Tablets Prednisone use as directed Randiunalfred Faria 07/24/2019 - 5mg (21) Tima Don [...] # [id number] Given 05/04/2013 Flu Vaccine NOS 94404 Given 10/27/2012 Tdap - Tetanus/Diptheria/Acellular Pertussis [id number] Vital Signs Date Vital Result Comment 09/25/2019 [...] Result H/L Range Note Laboratory test 09/25/2019 [facility] Vitamin B12 <pending> finding [address] [place] [address] [phone] Order 09/19/2019 [facility] Holter <pending> [address] [place] [address] [phone] CBC Auto Diff 09/08/2019 [facility] White Blood 5.4 10^3/uL Normal 3.5-10.[address] [place] [address] [phone] Red Blood Count 4.56 10^6/uL Normal 3.70-4.87 [...] Blood Cells % 0.1 Comp Metabolic 09/08/2019 [facility] Sodium 135 mmol/L Normal 135-[address] [place] [address] [phone] Potassium 4.1 mmol/L Normal 3.5-5.0 Chloride 104 [...] Egfr 100.0 >60 1 Laboratory test 09/08/2019 [facility] Hemoglobin A1c 5.2 % Normal 4.0-5.6 2 finding 101 (Glyco HGB) [place] [address] [phone] T3 Total 102 ng/dL Normal 87-178 Thyroxine 6.59 g/dL Normal 6.09-12.23 Thyroid 09/08/2019 [facility] Thyroid 2.06 Normal <9 Autoantibodies 101 Peroxidase IU/[place] [address] Antibodies [phone] Thyroglobulin Antibody II 0.0 IU/mL <4.0 Tick-Borne 09/08/2019 [facility] Anaplasma <1:64 <1:64 3 Disease AB 101 phag[place] [address] [phone] Babesia microti IgG Ab, S <1:64 titer <1:64 4 Ehrlichia chaffeensis IgG AB <1:64 titer <1:64 5 Lyme Disease Serology Negative Negative 6 Laboratory test 09/08/2019 [facility] Erythrocyte Sed 5 mm/Hr Normal 0-19 [place] [address] [phone] C Reactive Protein 4.18 mg/L Normal <8.01 Nuclear AB (Carmita) By Ifa Igg <1:80 (Negative) 7 FSH And LH 09/08/2019 [facility] FSH (Follicle Stim 6.4 mIU/mL [address] DR[address] Hormone) [place] [address] [phone] LH (Lutenizing Hormone) 5.4 mIU/mL 9 Laboratory test finding 09/08/2019 [facility] Estradiol 45 pg/ mL 10 [place] [address] [phone] Dhea Sulfate 60 g/dL 45-295 11 TSH (Thyroid Stim Horm) 1.30 mcIU/mL Normal 0.34-5.60 Testosterone Total < 10.00 ng/dL Normal 8-60 Acth 17 pg/mL 12 Insulin-Like Growth 09/08/2019 [facility] Insulin like 166 ng/ mL 59-279 Factor 1 [place] [address] I [phone] Igf1 Z-score 0.52 SD 13 Laboratory test 09/08/2019 [facility] Prolactin 24.5 ng/mL Normal 1.0-25.0 finding [address] [place] [address] [phone] Free T4 (Free Thyroxine) 0.87 ng/dL Normal 0.61-1.12 Sex Hormone Binding Globulin 34 nmol/L 14 Comp Metabolic Panel 06/11/2019 [facility] Sodium 134 mmol/L Low 135-145 [place] [address] [phone] Potassium 3.5 mmol/L Normal 3.5-5.0 Chloride 102 [...] Egfr 88.4 >60 15 Laboratory test 06/11/2019 [facility] Magnesium 1.8 mg/dL Low 1.9-2.7 finding 101 [place] [address] [phone] Urinalysis 06/11/2019 [facility] Urine Color Yellow Profile [address] [place] [address] [phone] Urine Appearance Clear Urine Specific Ava 1.011 Normal 1.010-1.030 Urine pH 5.0 Normal 5-9 Urine Urobilinogen Negative Negative Urine Ketones Negative Negative Urine Protein Negative Negative Urine Leukocytes Negative Negative Urine Blood Negative Negative Urine Nitrite Negative Negative Urine Bilirubin Negative Negative Urine Glucose Negative Negative Laboratory test 06/11/2019 [facility] Lactic Acid 0.9 mmol/L Normal 0.5-2.0 16 finding [address] [place] [address] [phone] CBC Auto Diff 06/11/2019 [facility] White Blood 9.6 Normal 3.5 -10.8 [address] [facility] Count 10^3/[place] [address] [phone] Red Blood Count 4.17 10^6/uL Normal 3.70-4.87 [...] Red Blood Cells % 0.0 Inr/Protime 06/11/2019 [facility] Inr 1.06 Normal 0.82-1.[address] [place] [address] [phone] Laboratory test 05/16/2019 [facility] Prolactin 19.7 Normal 1.0-25.[address] ng/[place] [address] [phone] TSH (Thyroid Stim Horm) 1.36 mcIU/mL Normal [...] in selective patients <6.0%. Please refer to [place] [employer] diabetic care guidelines for further information. 3 ADDITIONAL INFORMATION This test was developed using an analyte specific reagent. Its performance characteristics were determined by [facility] in a manner consistent with CLIA requirements. This test has not been cleared or approved by the U.S. Food and Drug Administration. 4 ADDITIONAL INFORMATION This test was developed using an analyte specific reagent. Its performance characteristics were determined by [facility] in a manner consistent with CLIA requirements. This test has not been cleared or approved by the U.S. Food and Drug Administration. 5 ADDITIONAL INFORMATION This test was developed using an analyte specific reagent. Its performance characteristics were determined by [facility] in a manner consistent with CLIA [...] tested in 2-4 weeks. Test Performed by: [facility] [place] [address] District Agent: Robert Marshall M.D. Ph.D.; CLIA# [id number] 7 <1:80 (Negative) REFERENCE VALUE <1:80 (Negative) Test Performed by: [facility] [place] [address] District Agent: Robert Marshall M.D. Ph.D.; CLIA# [id number] 8 Normally menstruating females - Follicular phase [...] + 12 15-115 11 Test Performed by: [facility] [place] [address] District Agent: Robert Marshall M.D. Ph.D.; CLIA# [id number] 12 REFERENCE VALUE 7.2-63 (a.m. collection) Test Performed by: [facility] [place] [address] District Agent: Robert Marshall M.D. Ph.D.; CLIA# [id number] 13 REFERENCE VALUE -2.0 - +2.0 ADDITIONAL INFORMATION This test was developed and its performance characteristics determined by [facility] in a manner consistent with CLIA requirements. This test has not been cleared or approved by the U.S. Food and Drug Administration. Test Performed by: [facility] [place] [address] District Agent: Robert Marshall M.D. Ph.D.; CLIA# [id number] 14 REFERENCE VALUE 18-144 (non-) Test Performed by: [facility] [place] [address] District Agent: Robert Marshall M.D. Ph.D.; CLIA# [id number] 15 Because ethnic data is not always [...] 5 Kidney failure <15 (or dialysis) 16 [facility] Severe Sepsis and Septic Shock Management Bundle Measure requires all lactic acids initially measuring >2.0 mmol/L be repeated. 17 Standard intensity warfarin therapeutic range: 2.0-3.0 High intensity warfarin therapeutic range: 2.5-3.5 Procedures Date Code Description Status 09/20/2019 47602 Holter Monitor Review (24 hr)dr review & interp only Completed 09/19/2019 20955 ECG Monitor/Recording W/Visual Superimposition Scanning Completed 08/15/2019 04136 Nerve Conduction 03-04 Studies Completed 08/15/2019 51538 Needle Electromyography Complete, Five Or More Muscles Completed Studied 07/10/2019 87665 EEG Recording Awake & Drowsy Completed 05/31/2019 09529 EEG Recording Awake & Drowsy Completed 06/24/2010 [id number] Mammogram Completed Medical Devices Description No Information Available Encounters Type Date Location Provider Dx Diagnosis Office Visit 09/07/2019 [facility] Internal Vanessa White M.D., R55 Syncope and 2:00p Medicine - [facility] FACP collapse G40.89 Other seizures G89.4 Chronic pain syndrome F17.210 Nicotine dependence, cigarettes, uncomplicated Office Visit 09/06/2019 2:00p [facility] Galeas Coch, 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 R68.82 Decreased libido N92.6 Irregular menstruation, unspecified R53.83 Other fatigue Office Visit 09/01/2019 11:30a [facility] Leandro Gagnon, R55 Syncope and [employer] [employer] collapse G43.009 Migraine w/o aura, not intractable, w/o status migrainosus R53.83 Other fatigue Office Visit 08/29/2019 Tj Cuevas, S46.011D Strain of 1:15p Orthopedics at [facility] maria/tend the [place] rotator cuff of right shoulder, subs Office Visit 08/22/2019 [place] Bagum Tiffanykunal G89.4 Chronic pain 3:00p Medicine - [facility] Leandrod, [place] [employer] syndrome Office Visit 08/22/2019 Tj Cuevas, S46.011D Strain of 1:15p Orthopedics at [facility]/tend the [place] rotator cuff of right shoulder, subs G56.21 Lesion of ulnar nerve, right upper limb G56.22 Lesion of ulnar nerve, left upper limb Office Visit 08/07/2019 [place] Giana M75.41 Impingement 1:30p Orthopedics at [facility] Don syndrome of right [place] shoulder S46.011A Strain of musc/tend the rotator cuff of right shoulder, init M25.511 Pain in right shoulder Office Visit 07/24/2019 2:45p [facility] Tory Weathers, M25.511 Pain in right at [facility] shoulder S46.011A Strain of musc/tend the rotator cuff of right shoulder, init M75.41 Impingement syndrome of right shoulder Office Visit 07/21/2019 [facility] Le[facility] Gagnon, G43.009 Migraine w/o 11:00a Clinic [place] [employer] aura, not intractable, w/o status migrainosus R55 Syncope and collapse F07.81 Postconcussional syndrome Office Visit 07/19/2019 11:15a [facility] Damon S46.011D Strain of at [facility] candace Flower/tend the rotator cuff of right shoulder, subs G56.01 Carpal tunnel syndrome, right upper limb G56.21 Lesion of ulnar nerve, right upper limb Office Visit 06/28/2019 [facility] Le[facility] Gagnon, R56.9 Unspecified 3:00p Clinic [place] [employer] convulsions G43.009 Migraine w/o aura, not intractable, w/o status migrainosus M54.2 Cervicalgia Office Visit 05/16/2019 2:40p [place] [facility] Maritza G40.89 Other seizures Medicine - [...] DO FAC 09/19/2019 R55 Syncope and collapse Nurse Visit cc 09/15/2019 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, not intractable, without status epilepticus 09/15/2019 Z79.899 Other long term care phlebotomist (current) drug Leandro Gagnon NP therapy 09/07/2019 [...] 09/01/2019 G43.009 Migraine without aura, not Leandro Knaake, [place] intractable, without status migrainosus 09/01/2019 R53.83 Other fatigue Leandro Gagnon, [employer] 08/29/2019 S46.011D Strain of muscle(s) and tendon(s) of Damon Cuevas MD the rotator cuff of right shoulder, subsequent encounter 08/22/2019 G89.4 Chronic pain syndrome Edd Prieto, [employer] 08/22/2019 S46.011D Strain of muscle(s) and tendon(s) [...] Leandro Gagnon, JANETH intractable, without status migrainosus 07/21/2019 R55 Syncope and collapse Leandro Gagnon, JANETH 07/21/2019 F07.81 Postconcussional syndrome Laendro Gagnon, JANETH 07/19/2019 S46.011D Strain of muscle(s) [...] 11:30 am - [facility] 9:00 am - Damon Cuevas MD at [facility] at [id number] 9:30 am - Damon Cuevas MD at [facility] at [id number] 11:00 am - Damon Cuevas MD at [facility] at [id number]/13/2019 7: 30 am - Damon Cuevas MD at [facility] at [id number]/25/2019 - Darren Clemens MDK03.81 Cracked vzdzaF15.4 Chronic pain syndromeNew Medication:Acetaminophen- Codeine #3 300-30 mg - take 1 tab q8 hoursComments:No more than 4 gm of Tylenol from all sources a day.M54.5 Low back painNew Xrays:MRI Lumbar Spine W/O, Ordered: 09/25/19M25.511 Pain in right lltxheflN22.0 Anesthesia of skinI73.00 Raynaud's syndrome without gangreneReferral:Julienne Crews MD, [id number] Rash and other nonspecific skin eruption Functional Status Description No Information Available Mental Status Description No Information Available Referrals Refer to Reason for Referral Status Appt Date Julienne Crews MD raynaud's, Sent [address], [place] [address] [phone] Darren Clemens MD Needs to establish care with a PCP to be cleared Scheduled for upcoming dental and shoulder surgery. [address] [place] [address] [phone] Milton Cai MD Previous patient; describes syncopal events, Sent lightheadedness, dizziness [address] [place] [address] [phone] Adal Mendieta MD Patient Notified 09/06/[address] [place] [address] [phone] Nelson Schmid M.D. Sent 06/28/2019 [address] [place] [address] [phone]
--- OUTSIDE RECORDS SUMMARY | 2019-10-25 11:49 | XMS REPORT | Continuity of Care Document ---
:1985 External Reference #:[id number] Author Name Kamaljit Florentino M.D. (transmitted by agent of provider Ellie Salamanca) Address [address] [facility], [address] [place] [id number] Care Team Providers Name Role Phone Destin Mayer M.D. - Family Medicine Care Team Information Consulting Utility Forester Jimmy Becker DO - Interventional Care Team Information Consulting Utility Forester Pain Medicine [facility] - Sleep Disorder Care Team Information Consulting Utility Forester Diagnostic Dwayne Fermin MD - Orthopaedic Care Team Information Consulting Utility Forester Surgery Milton Moreno MD - Otolaryngology Care Team Information Consulting Utility Forester Mars Snyder MD - Interventional Care Team Information Consulting Utility Forester Pain Medicine Belgica Cueto MD - Endocrinology, Care Team Information Consulting Utility Forester Diabetes & Metabolism Kamaljit Soria M.D. - Neurological Care Team Information Consulting Utility Forester Surgery Adal Mendieta MD - Endocrinology, Care Team Information Consulting Utility Forester [phone] Diabetes & Metabolism Nelson Schmid M.D. - Neurology Care Team Information Consulting Utility Forester Darren Clemens MD - Hospitalist Care Team Information Consulting Utility Forester [phone] Problems Active Problems Provider Date Congenital spondylolysis [...] (10 or fewer cigarettes/day) Smoking Status Reviewed: 09/26/19 Light tobacco smoker (10 or fewer cigarettes/day) [...] Qnty Indications Ordering Date Provider Lamotrigine take 1 tablet by 60tabs Kamaljit Mccoy 10/06/2019 100mg Tablets mouth twice a day Tima Florentino Starting 10/19/2019 Alprazolam take one tablet by 30tabs Kamaljit Mccoy 10/06/2019 0.5mg Tablets mouth, as needed Tima Florentino for insomnia. code c mdd 1 Fludrocortisone 1 by mouth every 30tabs I95.1 Milton Huynh 09/26/2019 Acetate day Tima Cai 0.1mg Tablets Lamotrigine take 3 tabs by 42tabs Kamaljit Mccoy 09/25/2019 25mg Tablets mouth twice a day Tima Florentino from one week, starting 10/12/2019 Acetaminophen-Codeine take 1 tab q8 21tabs G89.4 Joan Obed, 2019 #3 hours as needed DO 300-30mg Tablets for tooth pain Sumatriptan Succinate [...] 1units M54.5 Leatha Jenkins, 2012 fracture, kyphosis Moses.Thais [facility] E888.9 Omeprazole 1 by mouth every 30caps Maritza Del Cid M.D. 40mg Capsules DR day as needed Zofran take 1 tab every 6 Unknown 4mg Tablets hours as needed for vomiting. History Medications Alprazolam take one tab by 30tabs G40.209 Kamaljit Mccoy 09/15/2019 - 0.25mg mouth at Tima Florentino 10/03/2019 Tablets bedtime, as needed for insomnia. mdd 1 Lamotrigine 2 tabs by mouth 120tabs Kamaljit Mccoy 09/07/2019 - 25mg twice a day Tima Florentino 09/25/2019 Tablets Prednisone use as directed 1unalfred Faria 07/24/2019 - 5mg (21) Tima Don 08/22/2019 TBPK Amitriptyline HCL take 4 tabs by 120tabs G43.009 Kamaljit Mccoy 07/21/2019 - mouth at bedtime Tima Florentino 09/04/2019 10mg Tablets Amitriptyline HCL take one tab po 120tabs G43.009 Kamaljit Mccoy 07/21/2019 - at hs for one Tima Florentino 07/24/2019 10mg Tablets wk, take 2 tabs at hs for one wk, take 3 tabs at hs for one wk, take 4 tabs at hs Meloxicam 1 by mouth every 20tabs G50.1 Maritza 05/16/2019 - 15mg day Tima Del Cid 06/27/2019 Tablets Medications Administered in Office Medication SIG Qnty Indications Ordering Provider Date Records Fee Damon Cuevas MD 07/27/2019 Injection Triamcinolone (Kenalog) Jourdan Workman MD 02/23/2017 Injection Immunizations CPT Code Status Date Vaccine Lot # [id number] Given 05/04/2013 Flu Vaccine NOS [id number] Given 10/27/2012 Tdap - Tetanus/Diptheria/Acellular Pertussis [id number] Vital Signs Date Vital Result Comment 09/26/2019 1:15pm Height 69 inches 5'9" Weight 194.38 lb with shoes and jacket Heart Rate 100 /min Left radial BP Systolic Sitting 118 mmHg Ule regular cuff BP Diastolic Sitting 72 mmHg Ule regular cuff BP Systolic Standing 102 mmHg Ule regular cuff BP Diastolic Standing 72 mmHg Ule regular cuff BMI (Body Mass Index) 28.7 kg/m2 Ejection Fraction EF 55-60% Echo 10/16/2014 09/25/2019 2:16pm Height 69 inches 5'9" Weight 196.00 lb Heart Rate 83 /min BP Systolic Sitting 116 mmHg BP Diastolic Sitting 78 mmHg Body Temperature 97.9 F O2 % BldC Oximetry 98 % BMI (Body Mass Index) 28.9 kg/m2 Results Test Acquired Date Facility Test Result H/L Range Note Laboratory test 09/25/2019 [facility] Vitamin B12 <pending> finding [address] [place] [address] [phone] Order 09/19/2019 [facility] Holter <pending> [address] [place] [address] [phone] CBC Auto Diff 09/08/2019 [facility] White Blood 5.4 10^3/uL Normal 3.5-10.[address] [place] [address] [phone] Red Blood Count 4.56 10^6/uL Normal 3.70-4.87 [...] Blood Cells % 0.1 Comp Metabolic 09/08/2019 [facility] Sodium 135 mmol/L Normal 135-[address] [place] [address] [phone] Potassium 4.1 mmol/L Normal 3.5-5.0 Chloride 104 [...] Egfr 100.0 >60 1 Laboratory test 09/08/2019 [facility] Hemoglobin A1c 5.2 % Normal 4.0-5.[address] (Glyco HGB) [place] [address] [phone] T3 Total 102 ng/dL Normal 87-178 Thyroxine 6.59 g/dL Normal 6.09-12.23 Thyroid 09/08/2019 [facility] Thyroid 2.06 Normal <9 Autoantibodies Peroxidase IU/[place] [address] Antibodies [phone] Thyroglobulin Antibody II 0.0 IU/mL <4.0 Tick-Borne 09/08/2019 [facility] Anaplasma <1:64 <1:64 3 Disease AB phagocytophilium [place] [address] [phone] Babesia microti IgG Ab, S <1:64 titer <1:64 4 Ehrlichia chaffeensis IgG AB <1:64 titer <1:64 5 Lyme Disease Serology Negative Negative 6 Laboratory test 09/08/2019 [facility] Erythrocyte Sed 5 mm/Hr Normal 0-[address] [place] [address] [phone] C Reactive Protein 4.18 mg/L Normal <8.01 Nuclear AB (Carmita) By Ifa Igg <1:80 (Negative) 7 FSH And LH 09/08/2019 [facility] FSH (Follicle Stim 6.4 mIU/mL 8 Hormone) [place] [address] [phone] LH (Lutenizing Hormone) 5.4 mIU/mL 9 Laboratory test finding 09/08/2019 [facility] Estradiol 45 pg/ mL 10 [place] [address] [phone] Dhea Sulfate 60 g/dL 45-295 11 TSH (Thyroid Stim Horm) 1.30 mcIU/mL Normal 0.34-5.60 Testosterone Total < 10.00 ng/dL Normal 8-60 Acth 17 pg/mL 12 Insulin-Like Growth 09/08/2019 [facility] Insulin like 166 ng/ mL 59-279 Factor 1 [place] [address] I [phone] Igf1 Z-score 0.52 SD 13 Laboratory test 09/08/2019 [facility] Prolactin 24.5 ng/mL Normal 1.0-25.0 finding [address] [place] [address] [phone] Free T4 (Free Thyroxine) 0.87 ng/dL Normal 0.61-1.12 Sex Hormone Binding Globulin 34 nmol/L 14 Laboratory test 06/11/2019 [facility] Magnesium 1.8 mg/dL Low 1.9-2.7 finding [address] [place] [address] [phone] Urinalysis 06/11/2019 [facility] Urine Color Yellow Profile [address] [place] [address] [phone] Urine Appearance Clear Urine Specific [place] 1.011 Normal 1.010-1.030 Urine pH 5.0 Normal 5-9 Urine Urobilinogen Negative Negative Urine Ketones Negative Negative Urine Protein Negative Negative Urine Leukocytes Negative Negative Urine Blood Negative Negative Urine Nitrite Negative Negative Urine Bilirubin Negative Negative Urine Glucose Negative Negative Comp Metabolic Panel 06/11/2019 [facility] Sodium 134 mmol/L Low 135-145 [address] [place] [address] [phone] Potassium 3.5 mmol/L Normal 3.5-5.0 Chloride 102 [...] Egfr 88.4 >60 15 Laboratory test 06/11/2019 [facility] Lactic Acid 0.9 mmol/L Normal 0.5-2.0 16 finding [address] [place] [address] [phone] CBC Auto Diff 06/11/2019 [facility] White Blood 9.6 Normal 3.5 -10.[address] Count 10^3/[place] [address] [phone] Red Blood Count 4.17 10^6/uL Normal 3.70-4.87 [...] Red Blood Cells % 0.0 Inr/Protime 06/11/2019 [facility] Inr 1.06 Normal 0.82-1.[address] [place] [address] [phone] Laboratory test 05/16/2019 [facility] Prolactin 19.7 Normal 1.0-25.[address] ng/[place] [address] [phone] TSH (Thyroid Stim Horm) 1.36 mcIU/mL Normal [...] in selective patients <6.0%. Please refer to [place] [employer] diabetic care guidelines for further information. 3 ADDITIONAL INFORMATION This test was developed using an analyte specific reagent. Its performance characteristics were determined by [facility] in a manner consistent with CLIA requirements. This test has not been cleared or approved by the U.S. Food and Drug Administration. 4 ADDITIONAL INFORMATION This test was developed using an analyte specific reagent. Its performance characteristics were determined by [facility] in a manner consistent with CLIA requirements. This test has not been cleared or approved by the U.S. Food and Drug Administration. 5 ADDITIONAL INFORMATION This test was developed using an analyte specific reagent. Its performance characteristics were determined by [facility] in a manner consistent with CLIA [...] tested in 2-4 weeks. Test Performed by: [facility] - [address] [address] Human Capital Consultant: Robert Marshall M.D. Ph.D.; CLIA# [id number] 7 <1:80 (Negative) REFERENCE VALUE <1:80 (Negative) Test Performed by: [facility] [place] [address] Human Capital Consultant: Robert Marshall M.D. Ph.D.; CLIA# [id number] 8 Normally menstruating females - Follicular phase [...] + 12 15-115 11 Test Performed by: [facility] [place] [address] Human Capital Consultant: Robert Marshall M.D. Ph.D.; CLIA# [id number] 12 REFERENCE VALUE 7.2-63 (a.m. collection) Test Performed by: [place] [address] Human Capital Consultant: Robert Marshall M.D. Ph.D.; CLIA# [id number] 13 REFERENCE VALUE -2.0 - +2.0 ADDITIONAL INFORMATION This test was developed and its performance characteristics determined by [facility] in a manner consistent with CLIA requirements. This test has not been cleared or approved by the U.S. Food and Drug Administration. Test Performed by: [facility] [place] [address] Human Capital Consultant: Robert Mrashall M.D. Ph.D.; CLIA# [id number] 14 REFERENCE VALUE 18-144 (non-) Test Performed by: [facility] [place] [address] Human Capital Consultant: Robert Marshall M.D. Ph.D.; CLIA# [id number] 15 Because ethnic data is not always [...] 5 Kidney failure <15 (or dialysis) 16 [facility] Severe Sepsis and Septic Shock Management Bundle Measure requires all lactic acids initially measuring >2.0 mmol/L be repeated. 17 Standard intensity warfarin therapeutic range: 2.0-3.0 High intensity warfarin therapeutic range: 2.5-3.5 Procedures Date Code Description Status 09/26/2019 72834 EKG Tracing & Interpretation Completed 09/20/2019 34528 Holter Monitor Review (24 hr)dr review & interp only Completed 09/19/2019 47642 ECG Monitor/Recording W/Visual Superimposition Scanning Completed 09/19/2019 40043 ECG Monitor/Recording W/Visual Superimposition Scanning Completed 09/08/2019 03280 EEG Recording Awake & Drowsy Completed 08/15/2019 61922 Nerve Conduction 03-04 Studies Completed 08/15/2019 70141 Needle Electromyography Complete, Five Or More Muscles Completed Studied 07/10/2019 51255 EEG Recording Awake & Drowsy Completed 05/31/2019 57746 EEG Recording Awake & Drowsy Completed 06/24/2010 58194780 Mammogram Completed Medical Devices Description No Information Available Encounters Type Date Location Provider Dx Diagnosis Office Visit 09/26/2019 [facility] Milton Huynh I73.00 Raynaud's 2:00p Tima Cai syndrome without gangrene R55 Syncope and collapse Z72.0 Tobacco use R00.2 Palpitations Office Visit 09/15/2019 [facility] Le[facility] Gagnon, G40.209 Local-rel 10:00a Clinic [facility] RAKER symptc epi w cmplx prt seiz,not ntrct,w/o stat epi Z79.899 Other senior care (current) drug therapy Office Visit 09/07/2019 2:00p [facility] Internal Vanessa Cindy, R55 Syncope and Medicine - Lorraine Alfred, FACP collapse G40.89 Other seizures G89.4 Chronic pain syndrome F17.210 Nicotine dependence, cigarettes, uncomplicated Office Visit 09/06/2019 2:00p [facility] Galeas Coch, 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 R68.82 Decreased libido N92.6 Irregular menstruation, unspecified R53.83 Other fatigue Office Visit 09/01/2019 11:30a [facility] Leandro Gagnon, R55 Syncope and MACADAM RAKER collapse G43.009 Migraine w/o aura, not intractable, w/o status migrainosus R53.83 Other fatigue Office Visit 08/29/2019 [facility] Damon Cuevas, S46.011D Strain of 1:15p Orthopedics at MD maria/gokul [facility] [place] rotator cuff of right shoulder, subs Office Visit 08/22/2019 [facility] Internal Bagum Gilson G89.4 Chronic pain 3:00p Medicine - Ccmvasu Prieto, MACADAM RAKER syndrome Office Visit 08/22/2019 [facility] Damon Cuevas, S46.011D Strain of 1:15p Orthopedics at musc/tend the [place] rotator cuff of right shoulder, subs G56.21 Lesion of ulnar nerve, right upper limb G56.22 Lesion of ulnar nerve, left upper limb Office Visit 08/07/2019 [facility] Giana M75.41 Impingement 1:30p Orthopedics at Tima Don syndrome of right [place] shoulder S46.011A Strain of musc/tend the rotator cuff of right shoulder, init M25.511 Pain in right shoulder Office Visit 07/24/2019 2:45p [facility] Tory Weathers, M25.511 Pain in right at [place] RPA-C shoulder S46.011A Strain of musc/tend the rotator cuff of right shoulder, init M75.41 Impingement syndrome of right shoulder Office Visit 07/21/2019 [facility] Le[facility] Gagnon, G43.009 Migraine w/o 11:00a Clinic MACAD[facility] RAKER aura, not intractable, w/o status migrainosus R55 Syncope and collapse F07.81 Postconcussional syndrome Office Visit 07/19/2019 11:15a [facility] Damon S46.011D Strain of at [place] MD Mason musc/tend the rotator cuff of right shoulder, subs G56.01 Carpal tunnel syndrome, right upper limb G56.21 Lesion of ulnar nerve, right upper limb Office Visit 06/28/2019 [facility] Gagn[facility], R56.9 Unspecified 3:00p Clinic [facility]AD[facility] RAKER convulsions G43.009 Migraine w/o aura, not intractable, w/o status migrainosus M54.2 Cervicalgia Office Visit 05/16/2019 2:40p [facility] Internal Maritza G40.89 Other seizures Medicine - Lorraine Del Cid M.D. 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, not intractable, without status epilepticus 09/15/2019 Z79.899 Other master tax advisor (current) drug Leandro Gagnon NP therapy 09/08/2019 [...] Adal Mendieta MD 09/06/2019 R53.83 Other fatigue dAal Mendieta MD 09/01/2019 R55 Syncope and collapse Leandro Knaake, MACADAM RAKER 09/01/2019 G43.009 Migraine without aura, not Leanrdo Gagnon MACADAM RAKER intractable, without status migrainosus 09/01/2019 R53.83 Other fatigue Leandro Gagnon NP 08/29/2019 S46.011D Strain of muscle(s) and tendon(s) of Damon Cuevas MD the rotator cuff of right shoulder, subsequent encounter 08/22/2019 S46.011D Strain of muscle(s) and tendon(s) of Damon Cuevas MD the rotator cuff of right shoulder, subsequent encounter 08/22/2019 G89.4 Chronic pain syndrome Edd Riggins Ida, MACADAM RAKER 08/22/2019 G56.21 Lesion of ulnar nerve, right [...] G43.009 Migraine without aura, not Leandro Gagnon, MACADAM RAKER intractable, without status migrainosus 07/21/2019 R55 Syncope [...] Del Cid M.D. Plan of Treatment Future Appointment(s):10/16/2019 10:00 am - Darren Clemens MD at [facility] Internal Medicine - [address]/31/2019 11:00 am - Aron Holland M.D. at [facility]10/20/2019 11:30 am - Leandro Gagnon NP at [facility] [id number]/25/2019 - Darren Clemens MDK03.81 Cracked ocpciY09.4 Chronic pain syndromeNew Medication:Acetaminophen-Codeine #3 300-30 mg - take 1 tab q8 hours as needed for tooth painComments:No more than 4 gm of Tylenol from all sources a day.M54.5 Low back painNew Xrays:MRI Lumbar Spine W/O, Ordered: M25.511 Pain in right mwnepjyeX63.0 Anesthesia of skinI73.00 Raynaud's syndrome without gangreneReferral:Julienne Crews MD, [id number] Rash and other nonspecific skin eruption Functional Status Description No Information Available Mental Status Description No Information Available Referrals Refer to Dr Reason for Referral Status Appt Date Julienne Crews MD raynaud's, Sent 10/31/2019 [address], [place] [address] [phone] Darren Clemens MD Needs to establish care with a PCP to be cleared Scheduled for upcoming dental and shoulder surgery. [address] [place] [address] [place] [address] [phone] Milton Cia MD Previous patient; describes syncopal events, Sent lightheadedness, dizziness [address] [place] [address] [phone] Adal Mendieta MD Patient Notified 09/06/[address] [place] [address] [phone] Nelson Schmid M.D. Sent 06/28/2019 [address] [place] [address] [place] [address] [phone]
--- OUTSIDE RECORDS SUMMARY | 2019-10-25 11:49 | XMS REPORT | Continuity of Care Document ---
:1985 External Reference #:[id number] Author Name Milton Cai M.D. (transmitted by agent of provider Radha Garcia) Address [address] [place] [id number] Care Team Providers Name Role Phone Destin Mayer M.D. - Family Medicine Care Team Information Memorial Designer Jimmy Becker DO - Interventional Care Team Information Memorial Designer Pain Medicine [facility] - Sleep Disorder Care Team Information Memorial Designer Diagnostic Dwayne Fermin MD - Orthopaedic Care Team Information Memorial Designer [phone] Surgery Milton Moreno MD - Otolaryngology Care Team Information Memorial Designer Mars Snyder MD - Interventional Care Team Information Memorial Designer Pain Medicine Belgica Cueto MD - Endocrinology, Care Team Information Memorial Designer Diabetes & Metabolism Kamaljit Soria M.D. - Neurological Care Team Information Memorial Designer [phone] Surgery Adal Mendieta MD - Endocrinology, Care Team Information Memorial Designer Diabetes & Metabolism Nelson Schmid M.D. - Neurology Care Team Information Memorial Designer Darren Clemens MD - Hospitalist Care Team Information Memorial Designer [phone] Problems Active Problems Provider Date Congenital spondylolysis [...] Medications SIG Qnty Indications Ordering Date Provider Fludrocortisone 1 by mouth every 30tabs I95.1 Milton Huynh 09/26/2019 Acetate day Tima Cai 0.1mg Tablets Lamotrigine take 3 tabs by 56tabs Kamaljit Mccoy 09/25/2019 25mg Tablets mouth daily then Tima Florentino call. Acetaminophen-Codeine take 1 tab q8 21tabs G89.4 Darren Clemens MD 09/25/2019 #3 hours 300-30mg Tablets Sumatriptan Succinate take 1 tablet by 12tabs G43.909 Kamaljit Mccoy 03/24/2018 mouth at onset of Tima Florentino 100mg Tablets headache. may repeat after 2 hours as needed needs appointment Acetaminophen 2 tab 3 times 90tabs M54.5 Hernadnez 12/16/2017 500mg daily as needed Tima Rocha Tablets Benadryl Allergy 1-2 tabs PO prn 14tabs Other Ordering 06/22/2017 25mg Provider Tablets Ibuprofen 1 tab three times 30tabs Other Ordering 06/22/2017 600mg Tablets a day prn pain Provider Walker/Adult/Folding dx: h/o vertebral 1units M54.5 Leatha Jenkins, 2012 fracture, kyphosis [facility]ima [facility] E888.9 Omeprazole 1 by mouth every 30caps [...] # [id number] Given 05/04/2013 Flu Vaccine NOS 31857 Given 10/27/2012 Tdap - Tetanus/Diptheria/Acellular Pertussis [id number] Vital Signs Date Vital Result Comment 09/26/2019 [...] Result H/L Range Note Laboratory test 09/25/2019 [facility] Vitamin B12 <pending> finding [address] [place] [address] [phone] Order 09/19/2019 [facility] Holter <pending> [address] [place] [address] [phone] CBC Auto Diff 09/08/2019 [facility] White Blood 5.4 10^3/uL Normal 3.5-10.[address] [place] [address] [phone] Red Blood Count 4.56 10^6/uL Normal 3.70-4.87 [...] Blood Cells % 0.1 Comp Metabolic 09/08/2019 [facility] Sodium 135 mmol/L Normal 135-[address] [place] [address] [phone] Potassium 4.1 mmol/L Normal 3.5-5.0 Chloride 104 [...] Egfr 100.0 >60 1 Laboratory test 09/08/2019 [facility] Hemoglobin A1c 5.2 % Normal 4.0-5.[address] (Glyco HGB) [place] [address] [phone] T3 Total 102 ng/dL Normal 87-178 Thyroxine 6.59 g/dL Normal 6.09-12.23 Thyroid 09/08/2019 [facility] Thyroid 2.06 Normal <[address] Peroxidase IU/[place] [address] Antibodies [phone] Thyroglobulin Antibody II 0.0 IU/mL <4.0 Tick-Borne 09/08/2019 [facility] Anaplasma <1:64 <1:64 3 Disease AB phag[place] [address] [phone] Babesia microti IgG Ab, S <1:64 titer <1:64 4 Ehrlichia chaffeensis IgG AB <1:64 titer <1:64 5 Lyme Disease Serology Negative Negative 6 Laboratory test 09/08/2019 [facility] Erythrocyte Sed 5 mm/Hr Normal 0-19 [place] [address] [phone] C Reactive Protein 4.18 mg/L Normal <8.01 Nuclear AB (Carmita) By Ifa Igg <1:80 (Negative) 7 FSH And LH 09/08/2019 [facility] FSH (Follicle Stim 6.4 mIU/mL 8 Hormone) [place] [address] [phone] LH (Lutenizing Hormone) 5.4 mIU/mL 9 Laboratory test finding 09/08/2019 [facility] Estradiol 45 pg/ mL 10 [place] [address] [phone] Dhea Sulfate 60 g/dL 45-295 11 TSH (Thyroid Stim Horm) 1.30 mcIU/mL Normal 0.34-5.60 Testosterone Total < 10.00 ng/dL Normal 8-60 Acth 17 pg/mL 12 Insulin-Like Growth 09/08/2019 [facility] Insulin like 166 ng/ mL 59-279 Factor 1 [place] [address] I [phone] Igf1 Z-score 0.52 SD 13 Laboratory test 09/08/2019 [facility] Prolactin 24.5 ng/mL Normal 1.0-25.0 [place] [address] [phone] Free T4 (Free Thyroxine) 0.87 ng/dL Normal 0.61-1.12 Sex Hormone Binding Globulin 34 nmol/L 14 Laboratory test 06/11/2019 [facility] Magnesium 1.8 mg/dL Low 1.9-2.7 [place] [address] [phone] Urinalysis 06/11/2019 [facility] Urine Color Yellow Profile [address] [place] [address] [phone] Urine Appearance Clear Urine Specific [place] 1.011 Normal 1.010-1.030 Urine pH 5.0 Normal 5-9 Urine Urobilinogen Negative Negative Urine Ketones Negative Negative Urine Protein Negative Negative Urine Leukocytes Negative Negative Urine Blood Negative Negative Urine Nitrite Negative Negative Urine Bilirubin Negative Negative Urine Glucose Negative Negative Comp Metabolic Panel 06/11/2019 [facility] Sodium 134 mmol/L Low 135-[address] [place] [address] [phone] Potassium 3.5 mmol/L Normal 3.5-5.0 Chloride 102 [...] Egfr 88.4 >60 15 Laboratory test 06/11/2019 [facility] Lactic Acid 0.9 mmol/L Normal 0.5-2.[address] [place] [address] [phone] CBC Auto Diff 06/11/2019 [facility] White Blood 9.6 Normal 3.5 -10.[address] Count 10^3/[place] [address] [phone] Red Blood Count 4.17 10^6/uL Normal 3.70-4.87 [...] Red Blood Cells % 0.0 Inr/Protime 06/11/2019 [facility] Inr 1.06 Normal 0.82-1.[address] [place] [address] [phone] Laboratory test 05/16/2019 [facility] Prolactin 19.7 Normal 1.0-25.[address] ng/[place] [address] [phone] TSH (Thyroid Stim Horm) 1.36 mcIU/mL Normal [...] in selective patients <6.0%. Please refer to [place] [employer] diabetic care guidelines for further information. 3 ADDITIONAL INFORMATION This test was developed using an analyte specific reagent. Its performance characteristics were determined by [facility] in a manner consistent with CLIA requirements. This test has not been cleared or approved by the U.S. Food and Drug Administration. 4 ADDITIONAL INFORMATION This test was developed using an analyte specific reagent. Its performance characteristics were determined by [facility] in a manner consistent with CLIA requirements. This test has not been cleared or approved by the U.S. Food and Drug Administration. 5 ADDITIONAL INFORMATION This test was developed using an analyte specific reagent. Its performance characteristics were determined by [facility] in a manner consistent with CLIA requirements. [...] tested in 2-4 weeks. Test Performed by: [facility] [place] [address] Assistant Counsel: Robert Marshall M.D. Ph.D.; CLIA# [id number] 7 <1:80 (Negative) REFERENCE VALUE <1:80 (Negative) Test Performed by: [facility] [place] [address] Assistant Counsel: Robert Marshall M.D. Ph.D.; CLIA# [id number] 8 Normally menstruating females - Follicular phase [...] + 12 15-115 11 Test Performed by: [place] [address] Assistant Counsel: Robert Marshall M.D. Ph.D.; CLIA# [id number] 12 REFERENCE VALUE 7.2-63 (a.m. collection) Test Performed by: [place] [address] Assistant Counsel: Robert Marshall M.D. Ph.D.; CLIA# [id number] 13 REFERENCE VALUE -2.0 - +2.0 ADDITIONAL INFORMATION This test was developed and its performance characteristics determined by [facility] in a manner consistent with CLIA requirements. This test has not been cleared or approved by the U.S. Food and Drug Administration. Test Performed by: [facility] [place] [address] Assistant Counsel: Robert Marshall M.D. Ph.D.; CLIA# [id number] 14 REFERENCE VALUE 18-144 (non-) Test Performed by: [facility] [address] [place] [address] Assistant Counsel: Robert Marshall M.D. Ph.D.; IA# [id number] 15 Because ethnic data is not always [...] 5 Kidney failure <15 (or dialysis) 16 [facility] Severe Sepsis and Septic Shock Management Bundle Measure requires all lactic acids initially measuring >2.0 mmol/L be repeated. 17 Standard intensity warfarin therapeutic range: 2.0-3.0 High intensity warfarin therapeutic range: 2.5-3.5 Procedures Date Code Description Status 09/26/2019 64466 EKG Tracing & Interpretation Completed 09/20/2019 83837 Holter Monitor Review (24 hr)dr review & interp only Completed 09/19/2019 79639 ECG Monitor/Recording W/Visual Superimposition Scanning Completed 09/19/2019 68805 ECG Monitor/Recording W/Visual Superimposition Scanning Completed 08/15/2019 28086 Nerve Conduction 03-04 Studies Completed 08/15/2019 02129 Needle Electromyography Complete, Five Or More Muscles Completed Studied 07/10/2019 65696 EEG Recording Awake & Drowsy Completed 05/31/2019 77360 EEG Recording Awake & Drowsy Completed 06/24/2010 39032823 Mammogram Completed Medical Devices Description No Information Available Encounters Type Date Location Provider Dx Diagnosis Office Visit 09/26/2019 [facility] Milton Huynh I73.00 Raynaud's 2:00p Clint Cai. 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 R68.82 Decreased libido N92.6 Irregular menstruation, unspecified R53.83 Other fatigue Office Visit 09/01/2019 11:30a [facility] Leandro Gagnon, R55 Syncope and TRAFFIC ASSISTANT collapse G43.009 Migraine w/o aura, not intractable, w/o status migrainosus R53.83 Other fatigue Office Visit 08/29/2019 Tj Cuevas, S46.011D Strain of 1:15p Orthopedics at [facility] [place] rotator cuff of right shoulder, subs Office Visit 08/22/2019 [facility] Bagum Sharmaineullah G89.4 Chronic [facility] 3:[facility] TRAFFIC ASSISTANT syndrome Office Visit 08/22/2019 [facility], S46.011D Strain of 1:15p Orthopedics at [facility] [place] rotator cuff of right shoulder, subs G56.21 Lesion of ulnar nerve, right upper limb G56.22 Lesion of ulnar nerve, left upper limb Office Visit 08/07/2019 Tj Faria M75.41 Impingement 1:30p Orthopedics at [facility] Don syndrome of right [place] shoulder S46.011A Strain of candace/tend the rotator cuff of right shoulder, init M25.511 Pain in right shoulder Office Visit 07/24/2019 2:45p [facility] Tory Weathers, M25.511 Pain in right at [place] RPA-C shoulder S46.011A Strain of musc/tend the rotator cuff of right shoulder, init M75.41 Impingement syndrome of right shoulder Office Visit 07/21/2019 [facility], G43.009 Migraine w/o 11:00a Clinic TRAFFIC ASSISTANT aura, not intractable, w/o status migrainosus R55 Syncope and collapse F07.81 Postconcussional syndrome Office Visit 07/19/2019 11:15a [facility] Damon S46.011D Strain of at Lidia Cuevas MD musc/tend the rotator cuff of right shoulder, subs G56.01 Carpal tunnel syndrome, right upper limb G56.21 Lesion of ulnar nerve, right upper limb Office Visit 06/28/2019 [facility], R56.9 Unspecified 3:00p Clinic TRAFFIC ASSISTANT convulsions G43.009 Migraine w/o aura, not intractable, w/o status migrainosus M54.2 Cervicalgia Office Visit 05/16/2019 2:40p [facility] G40.89 Other seizures Medicine - [...] intractable, without status epilepticus 09/15/2019 Z79.899 Other bed bug exterminator (current) drug Leandro Gagnon NP therapy 09/07/2019 [...] Chronic pain syndrome Edd Prieto NP 08/22/2019 G56.21 Lesion of ulnar nerve, right [...] G43.009 Migraine without aura, not Leandro Kalin, TRAFFIC ASSISTANT intractable, without status migrainosus 07/21/2019 R55 Syncope and collapse Leandro Gagnon, TRAFFIC ASSISTANT 07/21/2019 F07.81 Postconcussional syndrome Leandro Gagnon, TRAFFIC ASSISTANT 07/19/2019 S46.011D Strain of muscle(s) and [...] G43.009 Migraine without aura, not Leandro Kalin, TRAFFIC ASSISTANT intractable, without status migrainosus 06/28/2019 M54.2 [...] Aron Holland M.D. at [facility]10/20/2019 11:30 am - Leandro Gagnon NP at [facility] Udrgul3609/25/2019 - Darren Clemens MDK03.81 Cracked eosliI32.4 Chronic pain syndromeNew Medication:Acetaminophen-Codeine #3 300-30 mg - take 1 tab q8 hoursComments:No more than 4 gm of Tylenol from all sources a day.M54.5 Low back painNew Xrays:MRI Lumbar Spine W/O, Ordered: 09/25/19M25.511 Pain in right pailiaisJ00.0 Anesthesia of skinI73.00 Raynaud's syndrome without gangreneReferral:Julienne Crews MD, [id number] Rash and other nonspecific skin eruption Functional Status Description No Information Available Mental Status Description No Information Available Referrals Refer to Dr Reason for Referral Status Appt Date Julienne Crews MD raynaud's, Sent 10/31/2019 [address] [place] [address] [phone] Darren Clemens MD Needs to establish care with a PCP to be cleared Scheduled for upcoming dental and shoulder surgery. [address] [place] [address] [place] [address] [phone] Milton Cai MD Previous patient; describes syncopal events, Sent 00 lightheadedness, dizziness [address] [place] [address] [phone] Adal Mendieta MD Patient Notified 09/06/[address] [place] [address] [phone] Nelson Schmid M.D. Sent 06/28/[address] [place] [address] [place] [address] [phone]
--- OUTSIDE RECORDS SUMMARY | 2019-10-25 11:49 | XMS REPORT | Continuity of Care Document ---
:1985 External Reference #:[id number] Author Name Zarina Rubio N.Jordyn. Address [address] [place] [id number] Care Team Providers Name Role Phone Destin Mayer M.D. - Family Medicine Care Team Information Classified Advertising Supervisor Jimmy Becker DO - Interventional Care Team Information Classified Advertising Supervisor Pain Medicine [facility] - Sleep Disorder Care Team Information Classified Advertising Supervisor Diagnostic Dwayne Fermin MD - Orthopaedic Care Team Information Classified Advertising Supervisor Surgery Milton Moreno MD - Otolaryngology Care Team Information Classified Advertising Supervisor Mars Snyder MD - Interventional Care Team Information Classified Advertising Supervisor Pain Medicine Belgica Cueto MD - Endocrinology, Care Team Information Classified Advertising Supervisor [phone] Diabetes & Metabolism Kamaljit Soria M.D. - Neurological Care Team Information Classified Advertising Supervisor [phone] Surgery Adal Mendieta MD - Endocrinology, Care Team Information Classified Advertising Supervisor Diabetes & Metabolism Nelson Schmid M.D. - Neurology Care Team Information Classified Advertising Supervisor [phone] Darren Clemens MD - Hospitalist Care Team Information Classified Advertising Supervisor [phone] Problems Active Problems Provider Date Congenital spondylolysis [...] (10 or fewer cigarettes/day) Smoking Status Reviewed: 10/11/19 Light tobacco smoker (10 or fewer cigarettes/day) [...] take 1 tab q8 21tabs G89.4 Joan Clay, 2019 #3 hours as needed DO 300-30mg [...] M54.5 Leatha Jenkins, 2012 fracture, kyphosis [facility] E888.9 Zofran take 1 tab every 6 [...] # [id number] Given 05/04/2013 Flu Vaccine NOS 28688 Given 10/27/2012 Tdap - Tetanus/Diptheria/Acellular Pertussis [id number] Vital Signs Date Vital Result Comment 09/26/2019 [...] Result H/L Range Note Laboratory test 09/25/2019 [facility] Vitamin B12 <pending> finding [address] [place] [address] [phone] Order 09/19/2019 [facility] Holter <pending> [address] [place] [address] [phone] CBC Auto Diff 09/08/2019 [facility] White Blood 5.4 10^3/uL Normal 3.5-10.[address] [place] [address] [phone] Red Blood Count 4.56 10^6/uL Normal 3.70-4.87 [...] Blood Cells % 0.1 Comp Metabolic 09/08/2019 [facility] Sodium 135 mmol/L Normal 135-[address] [place] [address] [phone] Potassium 4.1 mmol/L Normal 3.5-5.0 Chloride 104 [...] Egfr 100.0 >60 1 Laboratory test 09/08/2019 [facility] Hemoglobin A1c 5.2 % Normal 4.0-5.6 2 finding (Glyco HGB) [place] [address] [phone] T3 Total 102 ng/dL Normal 87-178 Thyroxine 6.59 g/dL Normal 6.09-12.23 Thyroid 09/08/2019 [facility] Thyroid 2.06 Normal <9 Autoantibodies Peroxidase IU/[place] [address] Antibodies [phone] Thyroglobulin Antibody II 0.0 IU/mL <4.0 Tick-Borne 09/08/2019 [facility] Anaplasma <1:64 <1:64 3 Disease AB phag[place] [address] [phone] Babesia microti IgG Ab, S <1:64 titer <1:64 4 Ehrlichia chaffeensis IgG AB <1:64 titer <1:64 5 Lyme Disease Serology Negative Negative 6 Laboratory test 09/08/2019 [facility] Erythrocyte Sed 5 mm/Hr Normal 0-[address] [place] [address] [phone] C Reactive Protein 4.18 mg/L Normal <8.01 Nuclear AB (Carmita) By Ifa Igg <1:80 (Negative) 7 FSH And LH 09/08/2019 [facility] FSH (Follicle Stim 6.4 mIU/mL [address] DR[address] Hormone) [place] [address] [phone] LH (Lutenizing Hormone) 5.4 mIU/mL 9 Laboratory test finding 09/08/2019 [facility] Estradiol 45 pg/ mL [address] [place] [address] [phone] Dhea Sulfate 60 g/dL 45-295 11 TSH (Thyroid Stim Horm) 1.30 mcIU/mL Normal 0.34-5.60 Testosterone Total < 10.00 ng/dL Normal 8-60 Acth 17 pg/mL 12 Insulin-Like Growth 09/08/2019 [facility] Insulin like 166 ng/ mL 59-279 Factor 1 101 [facility] [place] [address] I [phone] Igf1 Z-score 0.52 SD 13 Laboratory test 09/08/2019 [facility] Prolactin 24.5 ng/mL Normal 1.0-25.0 finding [address] [place] [address] [phone] Free T4 (Free Thyroxine) 0.87 ng/dL Normal 0.61-1.12 Sex Hormone Binding Globulin 34 nmol/L 14 Laboratory test 06/11/2019 [facility] Magnesium 1.8 mg/dL Low 1.9-2.7 finding [address] [place] [address] [phone] Urinalysis 06/11/2019 [facility] Urine Color Yellow Profile [address] [place] [address] [phone] Urine Appearance Clear Urine Specific [place] 1.011 Normal 1.010-1.030 Urine pH 5.0 Normal 5-9 Urine Urobilinogen Negative Negative Urine Ketones Negative Negative Urine Protein Negative Negative Urine Leukocytes Negative Negative Urine Blood Negative Negative Urine Nitrite Negative Negative Urine Bilirubin Negative Negative Urine Glucose Negative Negative Comp Metabolic Panel 06/11/2019 [facility] Sodium 134 mmol/L Low 135-145 [address] [place] [address] [phone] Potassium 3.5 mmol/L Normal 3.5-5.0 Chloride 102 [...] Egfr 88.4 >60 15 Laboratory test 06/11/2019 [facility] Lactic Acid 0.9 mmol/L Normal 0.5-2.0 [address] [place] [address] [phone] CBC Auto Diff 06/11/2019 [facility] White Blood 9.6 Normal 3.5 -10.[address] Count 10^3/[place] [address] [phone] Red Blood Count 4.17 10^6/uL Normal 3.70-4.87 [...] Red Blood Cells % 0.0 Inr/Protime 06/11/2019 [facility] Inr 1.06 Normal 0.82-1.[address] [place] [address] [phone] Laboratory test 05/16/2019 [facility] Prolactin 19.7 Normal 1.0-25.[address] ng/[place] [address] [phone] TSH (Thyroid Stim Horm) 1.36 mcIU/mL Normal [...] in selective patients <6.0%. Please refer to [employer] diabetic care guidelines for further information. 3 ADDITIONAL INFORMATION This test was developed using an analyte specific reagent. Its performance characteristics were determined by [facility] in a manner consistent with CLIA requirements. This test has not been cleared or approved by the U.S. Food and Drug Administration. 4 ADDITIONAL INFORMATION This test was developed using an analyte specific reagent. Its performance characteristics were determined by [facility] in a manner consistent with CLIA requirements. This test has not been cleared or approved by the U.S. Food and Drug Administration. 5 ADDITIONAL INFORMATION This test was developed using an analyte specific reagent. Its performance characteristics were determined by [facility] in a manner consistent with CLIA [...] tested in 2-4 weeks. Test Performed by: [place] [address] Product Safety Administrator: Robert Marshall M.D. Ph.D.; CLIA# [id number] 7 <1:80 (Negative) REFERENCE VALUE <1:80 (Negative) Test Performed by: [place] [address] Product Safety Administrator: Robert Marshall M.D. Ph.D.; CLIA# [id number] 8 Normally menstruating females - Follicular phase [...] + 12 15-115 11 Test Performed by: [place] [address] Product Safety Administrator: Robert Marshall M.D. Ph.D.; CLIA# [id number] 12 REFERENCE VALUE 7.2-63 (a.m. collection) Test Performed by: [place] [address] Product Safety Administrator: Robert Marshall M.D. Ph.D.; CLIA# [id number] 13 REFERENCE VALUE -2.0 - +2.0 ADDITIONAL INFORMATION This test was developed and its performance characteristics determined by [facility] in a manner consistent with CLIA requirements. This test has not been cleared or approved by the U.S. Food and Drug Administration. Test Performed by: [facility] [address] Product Safety Administrator: Robert Marshall M.D. Ph.D.; CLIA# [id number] 14 REFERENCE VALUE 18-144 (non-) Test Performed by: [place] [address] Product Safety Administrator: Robert Marshall M.D. Ph.D.; CLIA# [id number] 15 Because ethnic data is not always [...] 5 Kidney failure <15 (or dialysis) 16 [facility] Severe Sepsis and Septic Shock Management Bundle Measure requires all lactic acids initially measuring >2.0 mmol/L be repeated. 17 Standard intensity warfarin therapeutic range: 2.0-3.0 High intensity warfarin therapeutic range: 2.5-3.5 Procedures Date Code Description Status 09/26/2019 31345 EKG Tracing & Interpretation Completed 09/20/2019 28867 Holter Monitor Review (24 hr)dr review & interp only Completed 09/19/2019 45376 ECG Monitor/Recording W/Visual Superimposition Scanning Completed 09/19/2019 78814 ECG Monitor/Recording W/Visual Superimposition Scanning Completed 09/08/2019 01122 EEG Recording Awake & Drowsy Completed 08/15/2019 55718 Nerve Conduction 03-04 Studies Completed 08/15/2019 01030 Needle Electromyography Complete, Five Or More Muscles Completed Studied 07/10/2019 02108 EEG Recording Awake & Drowsy Completed 05/31/2019 90045 EEG Recording Awake & Drowsy Completed 06/24/2010 81500471 Mammogram Completed Medical Devices Description No Information Available Encounters Type Date Location Provider Dx Diagnosis Office Visit 09/26/2019 [facility] Milton Huynh I73.00 Raynaud's 2:00p Tima Cai syndrome without gangrene R55 Syncope and collapse Z72.0 Tobacco use R00.2 Palpitations Office Visit 09/15/2019 [facility] Leandro Gagnon, G40.209 Local-rel 10:00a Clinic [employer] symptc epi w cmplx prt seiz,not ntrct,w/o stat epi Z79.899 Other long wall shear operator (current) drug therapy Office Visit 09/07/2019 2:00p [facility] Vanessa White, R55 Syncope and Medicine - Lorraine Alfred, FACP collapse G40.89 Other seizures G89.4 Chronic pain syndrome F17.210 Nicotine dependence, cigarettes, uncomplicated Office Visit 09/06/2019 2:00p [facility] Galeas Coch, 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 R68.82 Decreased libido N92.6 Irregular menstruation, unspecified R53.83 Other fatigue Office Visit 09/01/2019 11:30a [facility] Leandro Gagnon, R55 Syncope and [employer] collapse G43.009 Migraine w/o aura, not intractable, w/o status migrainosus R53.83 Other fatigue Office Visit 08/29/2019 [facility], S46.011D Strain of 1:15p Orthopedics at MD maria/tend the [place] rotator cuff of right shoulder, subs Office Visit 08/22/2019 [facility] Bagum Sharmaineullah G89.4 Chronic [facility] [employer] syndrome Office Visit 08/22/2019 Tj Cuevas, S46.011D Strain of 1:15p Orthopedics at [facility] maria/tend the [place] rotator cuff of right shoulder, subs G56.21 Lesion of ulnar nerve, right upper limb G56.22 Lesion of ulnar nerve, left upper limb Office Visit 08/07/2019 [facility] Giana M75.41 Impingement 1:30p Orthopedics at [facility] Don syndrome of right [place] shoulder S46.011A Strain of musc/tend the rotator cuff of right shoulder, init M25.511 Pain in right shoulder Office Visit 07/24/2019 2:45p [facility] Tory Weathers, M25.511 Pain in right at [facility] shoulder S46.011A Strain of musc/tend the rotator cuff of right shoulder, init M75.41 Impingement syndrome of right shoulder Office Visit 07/21/2019 [facility] Leandro Gagnon, G43.009 Migraine w/o 11:00a Clinic [employer] aura, not intractable, w/o status migrainosus R55 Syncope and collapse F07.81 Postconcussional syndrome Office Visit 07/19/2019 11:15a [facility] Damon S46.011D Strain of at MD candace Flower/tend the rotator cuff of right shoulder, subs G56.01 Carpal tunnel syndrome, right upper limb G56.21 Lesion of ulnar nerve, right upper limb Office Visit 06/28/2019 [facility] Le[facility] Gagnon, R56.9 Unspecified 3:00p Clinic [employer] convulsions G43.009 Migraine w/o aura, not intractable, w/o status migrainosus M54.2 Cervicalgia Office Visit 05/16/2019 2:40p [facility] [employer] [facility] Internal Maritza G40.89 Other seizures Medicine [...] 09/25/2019 R21 Rash and other nonspecific skin Darrne Clemens MD eruption 09/20/2019 R55 Syncope and collapse Benito Guido, DO FAC 09/19/2019 R55 Syncope and collapse Benito Guido, DO [facility] 09/19/2019 R55 Syncope and collapse Nurse Visit cc 09/15/2019 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, not intractable, without status epilepticus 09/15/2019 Z79.899 Other long wall shear operator (current) drug Leandro Gagnon NP therapy 09/08/2019 G40.209 Localization-related (focal) Kamaljit Florentino M.D. (partial) symptomatic epilepsy and epileptic syndromes with complex partial seizures, not intractable, without status epilepticus 09/07/2019 R55 Syncope and collapse Vanessa White M.D., [facility] 09/07/2019 G40.89 Other seizures Vanessa White M.D., [facility] 09/07/2019 G89.4 Chronic pain syndrome Vanessa White [...] 08/22/2019 G89.4 Chronic pain syndrome Edd Prieto, [employer] 08/22/2019 G56.21 Lesion of ulnar nerve, right [...] 07/21/2019 R55 Syncope and collapse Leandro Gagnon, [employer] 07/21/2019 F07.81 Postconcussional syndrome Leandro Gagnon NP [...] G43.009 Migraine without aura, not Leandro Gagnon [employer] intractable, without status migrainosus 06/28/2019 M54.2 Cervicalgia [...] 10:00 am - Darren Clemens MD at [facility] Internal Medicine - [address]/2019 11:00 am - Aron Holland M.D. at [facility]10/20/2019 11:30 am - Leandro Gagnon NP at [facility] Functional Status Description No Information Available Mental Status Description No Information Available Referrals Refer to Dr Reason for Referral Status Appt Date Julienne Crews MD raynaud's, Sent 10/31/2019 [address] [place] [address] [phone] Darren Clemens MD Needs to establish care with a PCP to be cleared Scheduled for upcoming dental and shoulder surgery. [address] [place] [id number] [phone] Milton Cai MD Previous patient; describes syncopal events, Sent lightheadedness, dizziness [address] [facility] [address] [place] [address] [phone] Adal Mendieta MD Patient Notified 09/06/[address] [place] [id number] [phone] Nelson Schmid M.D. Sent 06/28/[address] [place] [address] [place] [id number] [phone]
--- OUTSIDE RECORDS SUMMARY | 2019-10-25 11:49 | XMS REPORT | Continuity of Care Document ---
:1985 External Reference #:[id number] Author Name Benito Guido DO [facility] (transmitted by agent of provider Radha Garcia) Address [address] [place] [id number] Care Team Providers Name Role Phone Destin Mayer M.D. - Family Medicine Care Team Information Solution Consultant Jimmy Becker DO - Interventional Care Team Information Solution Consultant Pain Medicine [facility] - Sleep Disorder Care Team Information Solution Consultant [phone] Diagnostic Dwayne Fermin MD - Orthopaedic Care Team Information Solution Consultant Surgery Milton Moreno MD - Otolaryngology Care Team Information Solution Consultant [phone] Mars Snyder MD - Interventional Care Team Information Solution Consultant [phone] Pain Medicine Belgica Cueto MD - Endocrinology, Care Team Information Solution Consultant Diabetes & Metabolism Kamaljit Soria M.D. - Neurological Care Team Information Solution Consultant Surgery Rosa Torres M.D. - Family Medicine Care Team Information Solution Consultant Adal Mendieta MD - Endocrinology, Care Team Information Solution Consultant [phone] Diabetes & Metabolism Nelson Schmid M.D. - Neurology Care Team Information Solution Consultant [phone] Problems Active Problems Provider Date Congenital spondylolysis [...] [facility] E888.9 Omeprazole 1 by mouth every 30caps [...] # [id number] Given 05/04/2013 Flu Vaccine NOS 34330 Given 10/27/2012 Tdap - Tetanus/Diptheria/Acellular Pertussis [id number] Vital Signs Date Vital Result Comment 09/25/2019 [...] Result H/L Range Note Laboratory test 09/25/2019 [facility] Vitamin B12 <pending> finding [address] [place] [address] [phone] Order 09/19/2019 [facility] Holter <pending> [address] [place] [address] [phone] CBC Auto Diff 09/08/2019 [facility] White Blood 5.4 10^3/uL Normal 3.5-10.[address] [place] [place] [address] [phone] Red Blood Count 4.56 10^6/uL Normal 3.70-4.87 [...] Blood Cells % 0.1 Comp Metabolic 09/08/2019 [facility] Sodium 135 mmol/L Normal 135-[address] [place] [address] [phone] Potassium 4.1 mmol/L Normal 3.5-5.0 Chloride 104 [...] Egfr 100.0 >60 1 Laboratory test 09/08/2019 [facility] Hemoglobin A1c 5.2 % Normal 4.0-5.[address] (Glyco HGB) [place] [address] [phone] T3 Total 102 ng/dL Normal 87-178 Thyroxine 6.59 g/dL Normal 6.09-12.23 Thyroid 09/08/2019 [facility] Thyroid 2.06 Normal <[address] Peroxidase IU/[place] [address] Antibodies [phone] Thyroglobulin Antibody II 0.0 IU/mL <4.0 Tick-Borne 09/08/2019 [facility] Anaplasma <1:64 <1:64 [address] phagocytophilium [place] [address] [phone] Babesia microti IgG Ab, S <1:64 titer <1:64 4 Ehrlichia chaffeensis IgG AB <1:64 titer <1:64 5 Lyme Disease Serology Negative Negative 6 Laboratory test 09/08/2019 [facility] Erythrocyte Sed 5 mm/Hr Normal 0-19 [place] [address] [phone] C Reactive Protein 4.18 mg/L Normal <8.01 Nuclear AB (Carmita) By Ifa Igg <1:80 (Negative) 7 FSH And LH 09/08/2019 [facility] FSH (Follicle Stim 6.4 mIU/mL [address] DR[address] Hormone) [place] [address] [phone] LH (Lutenizing Hormone) 5.4 mIU/mL 9 Laboratory test finding 09/08/2019 [facility] Estradiol 45 pg/ mL 10 [place] [address] [phone] Dhea Sulfate 60 g/dL 45-295 11 TSH (Thyroid Stim Horm) 1.30 mcIU/mL Normal 0.34-5.60 Testosterone Total < 10.00 ng/dL Normal 8-60 Acth 17 pg/mL 12 Insulin-Like Growth 09/08/2019 [facility] Insulin like 166 ng/ mL 59-279 Factor 1 [place] [address] I [phone] Igf1 Z-score 0.52 SD 13 Laboratory test 09/08/2019 [facility] Prolactin 24.5 ng/mL Normal 1.0-25.0 finding 101 [place] [address] [phone] Free T4 (Free Thyroxine) 0.87 ng/dL Normal 0.61-1.12 Sex Hormone Binding Globulin 34 nmol/L 14 Comp Metabolic Panel 06/11/2019 [facility] Sodium 134 mmol/L Low 135-145 101 [place] [address] [phone] Potassium 3.5 mmol/L Normal 3.5-5.0 Chloride 102 [...] Egfr 88.4 >60 15 Laboratory test 06/11/2019 [facility] Magnesium 1.8 mg/dL Low 1.9-2.7 finding 101 [place] [address] [phone] Urinalysis 06/11/2019 [facility] Urine Color Yellow Profile [address] [place] [address] [phone] Urine Appearance Clear Urine Specific [place] 1.011 Normal 1.010-1.030 Urine pH 5.0 Normal 5-9 Urine Urobilinogen Negative Negative Urine Ketones Negative Negative Urine Protein Negative Negative Urine Leukocytes Negative Negative Urine Blood Negative Negative Urine Nitrite Negative Negative Urine Bilirubin Negative Negative Urine Glucose Negative Negative Laboratory test 06/11/2019 [facility] Lactic Acid 0.9 mmol/L Normal 0.5-2.0 16 finding 101 [place] [address] [phone] CBC Auto Diff 06/11/2019 [facility] White Blood 9.6 Normal 3.5 -10.8 101 [facility] Count 10^3/[place] [address] [phone] Red Blood Count 4.17 10^6/uL Normal 3.70-4.87 [...] Red Blood Cells % 0.0 Inr/Protime 06/11/2019 [facility] Inr 1.06 Normal 0.82-1.[address] [place] [address] [phone] Laboratory test 05/16/2019 [facility] Prolactin 19.7 Normal 1.0-25.[address] ng/[place] [address] [phone] TSH (Thyroid Stim Horm) 1.36 mcIU/mL Normal [...] in selective patients <6.0%. Please refer to [place] [employer] diabetic care guidelines for further information. 3 ADDITIONAL INFORMATION This test was developed using an analyte specific reagent. Its performance characteristics were determined by [facility] in a manner consistent with CLIA requirements. This test has not been cleared or approved by the U.S. Food and Drug Administration. 4 ADDITIONAL INFORMATION This test was developed using an analyte specific reagent. Its performance characteristics were determined by [facility] in a manner consistent with CLIA requirements. This test has not been cleared or approved by the U.S. Food and Drug Administration. 5 ADDITIONAL INFORMATION This test was developed using an analyte specific reagent. Its performance characteristics were determined by [facility] in a manner consistent with CLIA [...] 2-4 weeks. Test Performed by: [facility] [place] [address] Seasonal Driver: Robert Marshall M.D. Ph.D.; CLIA# [id number] 7 <1:80 (Negative) REFERENCE VALUE <1:80 (Negative) Test Performed by: [facility] [place] [address] Seasonal Driver: Robert Marshall M.D. Ph.D.; CLIA# [id number] 8 Normally menstruating females - Follicular phase [...] + 12 15-115 11 Test Performed by: [facility] [place] [address] Seasonal Driver: Robert Marshall M.D. Ph.D.; CLIA# [id number] 12 REFERENCE VALUE 7.2-63 (a.m. collection) Test Performed by: [facility] [place] [address] Seasonal Driver: Robert Marshall M.D. Ph.D.; CLIA# [id number] 13 REFERENCE VALUE -2.0 - +2.0 ADDITIONAL INFORMATION This test was developed and its performance characteristics determined by [facility] in a manner consistent with CLIA requirements. This test has not been cleared or approved by the U.S. Food and Drug Administration. Test Performed by: [facility] [place] [address] Seasonal Driver: Robert Marshall M.D. Ph.D.; CLIA# [id number] 14 REFERENCE VALUE 18-144 (non-) Test Performed by: [place] [address] Seasonal Driver: Robert Marshall M.D. Ph.D.; CLIA# [id number] 15 Because ethnic data is not always [...] 5 Kidney failure <15 (or dialysis) 16 [facility] Severe Sepsis and Septic Shock Management Bundle Measure requires all lactic acids initially measuring >2.0 mmol/L be repeated. 17 Standard intensity warfarin therapeutic range: 2.0-3.0 High intensity warfarin therapeutic range: 2.5-3.5 Procedures Date Code Description Status 09/20/2019 51054 Holter Monitor Review (24 hr)dr review & interp only Completed 09/19/2019 85310 ECG Monitor/Recording W/Visual Superimposition Scanning Completed 09/19/2019 79228 ECG Monitor/Recording W/Visual Superimposition Scanning Completed 08/15/2019 25799 Nerve Conduction 03-04 Studies Completed 08/15/2019 90024 Needle Electromyography Complete, Five Or More Muscles Completed Studied 07/10/2019 12029 EEG Recording Awake & Drowsy Completed 05/31/2019 16361 EEG Recording Awake & Drowsy Completed 06/24/2010 19481988 Mammogram Completed Medical Devices Description No Information Available Encounters Type Date Location Provider Dx Diagnosis Office Visit 09/07/2019 [facility] Vanessa White M.D., R55 Syncope and 2:00p Medicine - [facility] FACP collapse G40.89 Other seizures G89.4 Chronic pain syndrome F17.210 Nicotine dependence, cigarettes, uncomplicated Office Visit 09/06/2019 2:00p [facility] Galeas Coch, 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 R68.82 Decreased libido N92.6 Irregular menstruation, unspecified R53.83 Other fatigue Office Visit 09/01/2019 11:30a [facility] Leandro Gagnon, R55 Syncope and BRAKE LINING FINISHER collapse G43.009 Migraine w/o aura, not intractable, w/o status migrainosus R53.83 Other fatigue Office Visit 08/29/2019 Tj Cuevas, S46.011D Strain of 1:15p Orthopedics at [facility] maria/tend the [place] rotator cuff of right shoulder, subs Office Visit 08/22/2019 [facility] Bagum Gilson G89.4 Chronic pain 3:00p Medicine - [facility] Ida, BRAKE LINING FINISHER syndrome Office Visit 08/22/2019 Tj Cuevas, S46.011D Strain of 1:15p Orthopedics at [facility]/tend the [place] rotator cuff of right shoulder, subs G56.21 Lesion of ulnar nerve, right upper limb G56.22 Lesion of ulnar nerve, left upper limb Office Visit 08/07/2019 [facility] M75.41 Impingement 1:30p Orthopedics at [place] syndrome of right [place] shoulder S46.011A Strain of musc/tend the rotator cuff of right shoulder, init M25.511 Pain in right shoulder Office Visit 07/24/2019 2:45p [facility] Tory Weathers M25.511 Pain in right at [facility] shoulder S46.011A Strain of musc/tend the rotator cuff of right shoulder, init M75.41 Impingement syndrome of right shoulder Office Visit 07/21/2019 [facility] Leandro Gagnon, G43.009 Migraine w/o 11:00a Clinic B[employer]KE [employer]ING FINISHER aura, not intractable, w/o status migrainosus R55 Syncope and collapse F07.81 Postconcussional syndrome Office Visit 07/19/2019 11:15a [facility] Jose S46.011D Strain of at [facility] candace Flower/tend the rotator cuff of right shoulder, subs G56.01 Carpal tunnel syndrome, right upper limb G56.21 Lesion of ulnar nerve, right upper limb Office Visit 06/28/2019 [facility] Leandro Gagnon, R56.9 Unspecified 3:00p Clinic B[employer]KE [employer]ING FINISHER convulsions G43.009 Migraine w/o aura, not intractable, w/o status migrainosus M54.2 Cervicalgia Office Visit 05/16/2019 2:40p [facility] Maritza G40.89 Other seizures Medicine - [...] intractable, without status epilepticus 09/15/2019 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 Leandro Gagnon NP therapy 09/07/2019 [...] 09/01/2019 R55 Syncope and collapse Leandro Gagnon, BRAKE LINING FINISHER 09/01/2019 G43.009 Migraine without aura, not Leandro Gagnon, BRAKE LINING FINISHER intractable, without status migrainosus 09/01/2019 R53.83 Other fatigue Leandro Gagnon, JANETH 08/29/2019 S46.011D Strain of muscle(s) and tendon(s) of Damon Cuevas MD the rotator cuff of right shoulder, subsequent encounter 08/22/2019 G89.4 Chronic pain syndrome Edd Mcgeeemerita, BRAKE LINING FINISHER 08/22/2019 S46.011D Strain of muscle(s) and tendon(s) [...] G43.009 Migraine without aura, not Leandro Gagnon, BRAKE LINING FINISHER intractable, without status migrainosus 07/21/2019 R55 Syncope and collapse Leandro Gagnon NP 07/21/2019 F07.81 Postconcussional syndrome Leandro Gagnon, BRAKE LINING FINISHER 07/19/2019 S46.011D Strain of muscle(s) and tendon(s) of Damon Cuevas MD the rotator cuff of right shoulder, subsequent encounter 07/19/2019 G56.01 Carpal tunnel syndrome, right upper Damon Cuevas MD limb 07/19/2019 G56.21 Lesion of ulnar nerve, right upper Damon Cuevas MD limb 07/10/2019 R56.9 Unspecified convulsions Kamaljit Florentino M.D. 06/28/2019 R56.9 Unspecified convulsions Leandro Gagnon, BRAKE LINING FINISHER 06/28/2019 G43.009 Migraine without aura, not Leandrofarooq Gagnon NP intractable, without status migrainosus 06/28/2019 [...] am - Leandro Gagnon NP at [facility] [id number]/11/2019 9:00 am - Damon Cuevas MD at [facility] at [id number] 9:30 am - Damon Cuevas MD at [facility] at [id number] 11:00 am - Damon Cuevas MD at [facility] at [id number]/13/2019 7: 30 am - Damon Cuevas MD at [facility] at Atwsqf1009/25/2019 - Darren Clemens MDK03.81 Cracked kuqpmY70.4 Chronic pain syndromeNew Medication:Acetaminophen- Codeine #3 300-30 mg - take 1 tab q8 hoursComments:No more than 4 gm of Tylenol from all sources a day.M54.5 Low back painNew Xrays:MRI Lumbar Spine W/O, Ordered: 09/25/19M25.511 Pain in right nqiwqmkcX41.0 Anesthesia of skinI73.00 Raynaud's syndrome without gangreneReferral:Julienne Crews MD, [id number] Rash and other nonspecific skin eruption Functional Status Description No Information Available Mental Status Description No Information Available Referrals Refer to Dr Reason for Referral Status Appt Date Julienne Crews MD raynaud's, Sent [address], [place] [address] [phone] Darren Clemens MD Needs to establish care with a PCP to be cleared Scheduled for upcoming dental and shoulder surgery. [address] [place] [address] [phone] Milton Cai MD Previous patient; describes syncopal events, Sent lightheadedness, dizziness [address] [place] [address] [phone] Adal Mendieta MD Patient Notified 09/06/[address] [place] [address] [phone] Nelson Schmid M.D. Sent 06/28/2019 [address] [place] [place] [address] [phone]
--- OUTSIDE RECORDS SUMMARY | 2019-10-25 11:49 | XMS REPORT | Continuity of Care Document ---
:1985 External Reference #:[id number] Author Name Zarina Rubio N.P. (transmitted by agent of provider Radha Garcia) Address [address] [place] [id number] Care Team Providers Name Role Phone Destin Mayer M.D. - Family Medicine Care Team Information [employer] [phone] Jimmy Becker DO - Interventional Care Team Information [employer] [facility] Pain Medicine [facility] - Sleep Disorder Care Team Information [employer] [phone] Diagnostic Dwayne Fermin MD - Orthopaedic Care Team Information [employer] [facility] Surgery Milton Moreno MD - Otolaryngology Care Team Information [employer] [facility] Mars Snyder MD - Interventional Care Team Information [employer] [facility] Pain Medicine Belgica Cueto MD - Endocrinology, Care Team Information [employer] [facility] Diabetes & Metabolism Kamaljit Soria M.D. - Neurological Care Team Information [employer] [facility] Surgery Adal Mendieta MD - Endocrinology, Care Team Information [employer] [facility] Diabetes & Metabolism Nelson Schmid M.D. - Neurology Care Team Information [employer] [facility] Darren Clemens MD - Hospitalist Care Team Information [employer] [facility] [phone] Problems Active Problems Provider Date Congenital spondylolysis [...] M54.5 Leatha Jenkins, 2012 fracture, kyphosis [facility] E888.9 Zofran take 1 tab every 6 [...] # [id number] Given 05/04/2013 Flu Vaccine NOS 13969 Given 10/27/2012 Tdap - Tetanus/Diptheria/Acellular Pertussis [id number] Vital Signs Date Vital Result Comment 09/26/2019 [...] Result H/L Range Note Laboratory test 09/25/2019 [facility] Vitamin B12 <pending> finding [address] [place] [address] [phone] CBC Auto Diff 09/08/2019 [facility] White Blood 5.4 10^3/uL Normal 3.5-10.[address] [place] [address] [phone] Red Blood Count 4.56 10^6/uL Normal 3.70-4.87 [...] Blood Cells % 0.1 Comp Metabolic 09/08/2019 [facility] Sodium 135 mmol/L Normal 135-[address] [place] [address] [phone] Potassium 4.1 mmol/L Normal 3.5-5.0 Chloride 104 [...] Egfr 100.0 >60 1 Laboratory test 09/08/2019 [facility] Hemoglobin A1c 5.2 % Normal 4.0-5.6 2 finding 101 (Glyco HGB) [place] [address] [phone] T3 Total 102 ng/dL Normal 87-178 Thyroxine 6.59 g/dL Normal 6.09-12.23 Thyroid 09/08/2019 [facility] Thyroid 2.06 Normal <[address] Peroxidase IU/[place] [address] Antibodies [phone] Thyroglobulin Antibody II 0.0 IU/mL <4.0 Tick-Borne 09/08/2019 [facility] Anaplasma <1:64 <1:[address] phagocytophil[place] [address] [phone] Babesia microti IgG Ab, S <1:64 titer <1:64 4 Ehrlichia chaffeensis IgG AB <1:64 titer <1:64 5 Lyme Disease Serology Negative Negative 6 Laboratory test 09/08/2019 [facility] Erythrocyte Sed 5 mm/Hr Normal 0-[address] [place] [address] [phone] C Reactive Protein 4.18 mg/L Normal <8.01 Nuclear AB (Carmita) By Ifa Igg <1:80 (Negative) 7 FSH And LH 09/08/2019 [facility] FSH (Follicle Stim 6.4 mIU/mL [address] DR[address] Hormone) [place] [address] [phone] LH (Lutenizing Hormone) 5.4 mIU/mL 9 Laboratory test finding 09/08/2019 [facility] Estradiol 45 pg/ mL [address] [place] [address] [phone] Dhea Sulfate 60 g/dL 45-295 11 TSH (Thyroid Stim Horm) 1.30 mcIU/mL Normal 0.34-5.60 Testosterone Total < 10.00 ng/dL Normal 8-60 Acth 17 pg/mL 12 Insulin-Like Growth 09/08/2019 [facility] Insulin like 166 ng/ mL 59-279 Factor 1 101 [facility] [place] [address] I [phone] Igf1 Z-score 0.52 SD 13 Laboratory test 09/08/2019 [facility] Prolactin 24.5 ng/mL Normal 1.0-25.0 finding [address] [place] [address] [phone] Free T4 (Free Thyroxine) 0.87 ng/dL Normal 0.61-1.12 Sex Hormone Binding Globulin 34 nmol/L 14 Laboratory test 06/11/2019 [facility] Magnesium 1.8 mg/dL Low 1.9-2.7 finding [address] [place] [address] [phone] Urinalysis 06/11/2019 [facility] Urine Color Yellow Profile [address] [place] [address] [phone] Urine Appearance Clear Urine Specific [place] 1.011 Normal 1.010-1.030 Urine pH 5.0 Normal 5-9 Urine Urobilinogen Negative Negative Urine Ketones Negative Negative Urine Protein Negative Negative Urine Leukocytes Negative Negative Urine Blood Negative Negative Urine Nitrite Negative Negative Urine Bilirubin Negative Negative Urine Glucose Negative Negative Comp Metabolic Panel 06/11/2019 [facility] Sodium 134 mmol/L Low 135-145 [address] [place] [address] [phone] Potassium 3.5 mmol/L Normal 3.5-5.0 Chloride 102 [...] Egfr 88.4 >60 15 Laboratory test 06/11/2019 [facility] Lactic Acid 0.9 mmol/L Normal 0.5-2.0 [address] [place] [address] [phone] CBC Auto Diff 06/11/2019 [facility] White Blood 9.6 Normal 3.5 -10.[address] Count 10^3/[place] [address] [phone] Red Blood Count 4.17 10^6/uL Normal 3.70-4.87 [...] Red Blood Cells % 0.0 Inr/Protime 06/11/2019 [facility] Inr 1.06 Normal 0.82-1.[address] [place] [address] [phone] Laboratory test 05/16/2019 [facility] Prolactin 19.7 Normal 1.0-25.[address] ng/[place] [address] [phone] TSH (Thyroid Stim Horm) 1.36 mcIU/mL Normal [...] in selective patients <6.0%. Please refer to [place] [employer] diabetic care guidelines for further information. 3 ADDITIONAL INFORMATION This test was developed using an analyte specific reagent. Its performance characteristics were determined by [facility] in a manner consistent with CLIA requirements. This test has not been cleared or approved by the U.S. Food and Drug Administration. 4 ADDITIONAL INFORMATION This test was developed using an analyte specific reagent. Its performance characteristics were determined by [facility] in a manner consistent with CLIA requirements. This test has not been cleared or approved by the U.S. Food and Drug Administration. 5 ADDITIONAL INFORMATION This test was developed using an analyte specific reagent. Its performance characteristics were determined by [facility] in a manner consistent with CLIA [...] tested in 2-4 weeks. Test Performed by: [facility] [place] [address] Medical Library Assistant: Robert Marshall M.D. Ph.D.; CLIA# [id number] 7 <1:80 (Negative) REFERENCE VALUE <1:80 (Negative) Test Performed by: [place] [address] Medical Library Assistant: Robert Marshall M.D. Ph.D.; CLIA# [id number] 8 Normally menstruating females - Follicular phase [...] + 12 15-115 11 Test Performed by: [place] [address] Medical Library Assistant: Robert Marshall M.D. Ph.D.; CLIA# [id number] 12 REFERENCE VALUE 7.2-63 (a.m. collection) Test Performed by: [place] [address] Medical Library Assistant: Robert Marshall M.D. Ph.D.; CLIA# [id number] 13 REFERENCE VALUE -2.0 - +2.0 ADDITIONAL INFORMATION This test was developed and its performance characteristics determined by [facility] in a manner consistent with CLIA requirements. This test has not been cleared or approved by the U.S. Food and Drug Administration. Test Performed by: [facility] [place] [address] Medical Library Assistant: Robert Marshall M.D. Ph.D.; CLIA# [id number] 14 REFERENCE VALUE 18-144 (non-) Test Performed by: [facility] [place] [address] Medical Library Assistant: Robert Marshall M.D. Ph.D.; CLIA# [id number] 15 Because ethnic data is not always [...] 5 Kidney failure <15 (or dialysis) 16 [facility] Severe Sepsis and Septic Shock Management Bundle Measure requires all lactic acids initially measuring >2.0 mmol/L be repeated. 17 Standard intensity warfarin therapeutic range: 2.0-3.0 High intensity warfarin therapeutic range: 2.5-3.5 Procedures Date Code Description Status 09/26/2019 02296 EKG Tracing & Interpretation Completed 09/20/2019 27311 Holter Monitor Review (24 hr)dr review & interp only Completed 09/19/2019 11351 ECG Monitor/Recording W/Visual Superimposition Scanning Completed 09/19/2019 18322 ECG Monitor/Recording W/Visual Superimposition Scanning Completed 09/08/2019 19494 EEG Recording Awake & Drowsy Completed 08/15/2019 83685 Nerve Conduction 03-04 Studies Completed 08/15/2019 84282 Needle Electromyography Complete, Five Or More Muscles Completed Studied 07/10/2019 09739 EEG Recording Awake & Drowsy Completed 05/31/2019 78711 EEG Recording Awake & Drowsy Completed 06/24/2010 58389940 Mammogram Completed Medical Devices Description No Information Available Encounters Type Date Location Provider Dx Diagnosis Office Visit 10/12/2019 Telephone Cardiology Zarina Rubio, R55 Syncope and 2:00p N.P. 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 R68.82 Decreased libido N92.6 Irregular menstruation, unspecified R53.83 Other fatigue Office Visit 09/01/2019 11:30a Neurohospitalist Clinic Leandro Gagnon, R55 Syncope and ARS[employer] INVESTIGATOR collapse G43.009 Migraine w/o aura, not intractable, w/o status migrainosus R53.83 Other fatigue Office Visit 08/29/2019 Telephonepedrito Cuevas, S46.011D Strain of 1:15p Orthopedics at MD maria/tend the Terrell rotator cuff of right shoulder, subs Office Visit 08/22/2019 [facility] Internal Bagum Gilson G89.4 [facility] 3:[facility] [employer]ON INVESTIGATOR syndrome Office Visit 08/22/2019 Tj Cuevas, S46.011D Strain of 1:15p Orthopedics at MD maria/tend the Terrell rotator cuff of right shoulder, subs G56.21 Lesion of ulnar nerve, right upper limb G56.22 Lesion of ulnar nerve, left upper limb Office Visit 08/07/2019 Telephone Giana M75.41 Impingement 1:30p Orthopedics at Tima Don syndrome of right Terrell shoulder S46.011A Strain of musc/tend the rotator cuff of right shoulder, init M25.511 Pain in right shoulder Office Visit 07/24/2019 2:45p Telephone Orthopedics Tory Weathers, M25.511 Pain in right at [facility] shoulder S46.011A Strain of musc/tend the rotator cuff of right shoulder, init M75.41 Impingement syndrome of right shoulder Office Visit 07/21/2019 Neurohospitalist Leandro Gagnon, G43.009 Migraine w/o 11:00a Clinic ARSON INVESTIGATOR aura, not intractable, w/o status migrainosus R55 Syncope and collapse F07.81 Postconcussional syndrome Office Visit 07/19/2019 11:15a Telephone Orthopedics Damon S46.011D Strain of at MD candace Flower/tend the rotator cuff of right shoulder, subs G56.01 Carpal tunnel syndrome, right upper limb G56.21 Lesion of ulnar nerve, right upper limb Office Visit 06/28/2019 Neurohospitalist Leandro Gagnon, R56.9 Unspecified 3:00p Clinic ARSON INVESTIGATOR convulsions G43.009 Migraine w/o aura, not intractable, w/o status migrainosus M54.2 Cervicalgia Office Visit 05/16/2019 2:40p [facility] Internal Maritza G40.89 Other seizures [facility] M.[facility]. D35.2 Benign neoplasm of pituitary gland Z72.0 Tobacco use G50.1 Atypical facial pain Assessments Date Code Description Provider 10/13/2019 M25.511 Pain in right shoulder Joan [...] intractable, without status epilepticus 09/15/2019 Z79.899 Other snf (current) drug Leandro Gagnon NP therapy 09/08/2019 [...] Leandro Gagnon, JANETH intractable, without status migrainosus 09/01/2019 R53.83 Other fatigue Leandro Gagnon, JANETH 08/29/2019 S46.011D Strain of muscle(s) and tendon(s) of Damon Cuevas MD the rotator cuff of right shoulder, subsequent encounter 08/22/2019 G89.4 Chronic pain syndrome Edd Orlandoperi Prieto, ARSON INVESTIGATOR 08/22/2019 S46.011D Strain of muscle(s) and tendon(s) [...] G43.009 Migraine without aura, not Leandro Gagnon, ARSON INVESTIGATOR intractable, without status migrainosus 07/21/2019 R55 Syncope [...] G43.009 Migraine without aura, not Leandro Gagnon, ARSON INVESTIGATOR intractable, without status migrainosus 06/28/2019 M54.2 Cervicalgia Leandro Gagnon NP 05/31/2019 R56.9 Unspecified convulsions Law Herrera MD 05/16/2019 G40.89 Other seizures Maritza Del Cid M.D. 05/16/2019 D35.2 Benign neoplasm of pituitary gland Maritza Del Cid M.D. 05/16/2019 Z72.0 Tobacco use Maritza Del Cid M.D. 05/16/2019 G50.1 Atypical facial pain Maritza Del Cid M.D. Plan of Treatment Future Appointment(s):10/17/2019 2:00 pm - Damon Cuevas MD at [facility] at [id number]/31/2019 11:00 am - Aron Holland M.D. at [facility]10/20/2019 11:30 am - Leandro Gagnon NP at Telephone [facility]09/25/2019 - Darren Clemens MDK03.81 Cracked heymlJ51.4 Chronic pain syndromeNew Medication:Acetaminophen-Codeine #3 300-30 mg - take 1 tab q8 hours as needed for tooth painComments:No more than 4 gm of Tylenol from all sources a day.M54.5 Low back painNew Xrays:MRI Lumbar Spine W/O, Ordered: M25.511 Pain in right tnfiopmaX19.0 Anesthesia of skinI73.00 Raynaud's syndrome without gangreneReferral:Julienne Crews MD, [id number] Rash and other nonspecific skin eruption Functional Status Description No Information Available Mental Status Description No Information Available Referrals Refer to Dr Reason for Referral Status Appt Date Julienne Crews MD raynaud's, Sent 10/31/2019 [address], [place] [address] [phone] Darren Clemens MD Needs to establish care with a PCP to be cleared Scheduled for upcoming dental and shoulder surgery. [address] [place] [address] [place] [phone] Milton Cai MD Previous patient; describes syncopal events, Sent 00 lightheadedness, dizziness [address] [place] [address] [phone] Adal Mendieta MD Patient Notified 09/06/[address] [place] [id number] [phone] Nelson Schmid M.D. Sent 06/28/2019 [address] [place] [address] [place] [phone]
--- OUTSIDE RECORDS SUMMARY | 2019-10-25 11:49 | XMS REPORT | Continuity of Care Document ---
:1985 External Reference #:[id number] Author Name Darren Clemens MD (transmitted by agent of provider Franchesca Bonner) Address [address] [place] [id number] Care Team Providers Name Role Phone Destin Mayer M.D. - Family Medicine Care Team Information [facility] [phone] Jimmy Becker DO - Interventional Care Team Information [facility] Pain [facility] - [facility] Care Team Information [place] [phone] Diagnostic Dwayne Fermin MD - Orthopaedic Care Team Information [facility] Surgery Milton Moreno MD - Otolaryngology Care Team Information [facility] Mars Snyder MD - Interventional Care Team Information [facility] [phone] Pain Medicine Belgica Cueto MD - Endocrinology, Care Team Information [facility] Diabetes & Metabolism Kamaljit Soria M.D. - Neurological Care Team Information [facility] Surgery Rosa Torres M.D. - Family Medicine Care Team Information [facility] Adal Mendieta MD - Endocrinology, Care Team Information [facility] Diabetes & Metabolism Nelson Schmid M.D. - Neurology Care Team Information [facility] Problems Active Problems Provider Date Congenital spondylolysis [...] M54.5 Leatha Jenkins, 2012 fracture, kyphosis [facility] E888.9 Omeprazole 1 by mouth every [...] # [id number] Given 05/04/2013 Flu Vaccine NOS 02737 Given 10/27/2012 Tdap - Tetanus/Diptheria/Acellular Pertussis [id number] Vital Signs Date Vital Result Comment 09/25/2019 [...] Result H/L Range Note Laboratory test 09/25/2019 [facility] Vitamin B12 <pending> finding [address] [place] [address] [phone] Order 09/19/2019 [facility] Holter <pending> [address] [place] [address] [phone] CBC Auto Diff 09/08/2019 [facility] White Blood 5.4 10^3/uL Normal 3.5-10.[address] [place] [address] [phone] Red Blood Count 4.56 10^6/uL Normal 3.70-4.87 [...] Blood Cells % 0.1 Comp Metabolic 09/08/2019 [facility] Sodium 135 mmol/L Normal 135-[address] [place] [address] [phone] Potassium 4.1 mmol/L Normal 3.5-5.0 Chloride 104 [...] Egfr 100.0 >60 1 Laboratory test 09/08/2019 [facility] Hemoglobin A1c 5.2 % Normal 4.0-5.6 2 finding 101 (Glyco HGB) [place] [address] [phone] T3 Total 102 ng/dL Normal 87-178 Thyroxine 6.59 g/dL Normal 6.09-12.23 Thyroid 09/08/2019 [facility] Thyroid 2.06 Normal <9 Autoantibodies 101 Peroxidase IU/[place] [address] Antibodies [phone] Thyroglobulin Antibody II 0.0 IU/mL <4.0 Tick-Borne 09/08/2019 [facility] Anaplasma <1:64 <1:64 3 Disease AB 101 phag[place] [address] [phone] Babesia microti IgG Ab, S <1:64 titer <1:64 4 Ehrlichia chaffeensis IgG AB <1:64 titer <1:64 5 Lyme Disease Serology Negative Negative 6 Laboratory test 09/08/2019 [facility] Erythrocyte Sed 5 mm/Hr Normal 0-19 [place] [address] [phone] C Reactive Protein 4.18 mg/L Normal <8.01 Nuclear AB (Carmita) By Ifa Igg <1:80 (Negative) 7 FSH And LH 09/08/2019 [facility] FSH (Follicle Stim 6.4 mIU/mL [address] DR[address] Hormone) [place] [address] [phone] LH (Lutenizing Hormone) 5.4 mIU/mL 9 Laboratory test finding 09/08/2019 [facility] Estradiol 45 pg/ mL 10 [place] [address] [phone] Dhea Sulfate 60 g/dL 45-295 11 TSH (Thyroid Stim Horm) 1.30 mcIU/mL Normal 0.34-5.60 Testosterone Total < 10.00 ng/dL Normal 8-60 Acth 17 pg/mL 12 Insulin-Like Growth 09/08/2019 [facility] Insulin like 166 ng/ mL 59-279 Factor 1 [place] [address] I [phone] Igf1 Z-score 0.52 SD 13 Laboratory test 09/08/2019 [facility] Prolactin 24.5 ng/mL Normal 1.0-25.0 finding 101 [place] [address] [phone] Free T4 (Free Thyroxine) 0.87 ng/dL Normal 0.61-1.12 Sex Hormone Binding Globulin 34 nmol/L 14 Comp Metabolic Panel 06/11/2019 [facility] Sodium 134 mmol/L Low 135-145 [place] [address] [phone] Potassium 3.5 mmol/L Normal 3.5-5.0 Chloride 102 [...] Egfr 88.4 >60 15 Laboratory test 06/11/2019 [facility] Magnesium 1.8 mg/dL Low 1.9-2.7 finding 101 [place] [address] [phone] Urinalysis 06/11/2019 [facility] Urine Color Yellow Profile [address] [place] [address] [phone] Urine Appearance Clear Urine Specific [place] 1.011 Normal 1.010-1.030 Urine pH 5.0 Normal 5-9 Urine Urobilinogen Negative Negative Urine Ketones Negative Negative Urine Protein Negative Negative Urine Leukocytes Negative Negative Urine Blood Negative Negative Urine Nitrite Negative Negative Urine Bilirubin Negative Negative Urine Glucose Negative Negative Laboratory test 06/11/2019 [facility] Lactic Acid 0.9 mmol/L Normal 0.5-2.0 16 finding [address] [place] [address] [phone] CBC Auto Diff 06/11/2019 [facility] White Blood 9.6 Normal 3.5 -10.8 [address] [facility] Count 10^3/[place] [address] [phone] Red Blood Count 4.17 10^6/uL Normal 3.70-4.87 [...] Red Blood Cells % 0.0 Inr/Protime 06/11/2019 [facility] Inr 1.06 Normal 0.82-1.[address] [place] [address] [phone] Laboratory test 05/16/2019 [facility] Prolactin 19.7 Normal 1.0-25.[address] ng/[place] [address] [phone] TSH (Thyroid Stim Horm) 1.36 mcIU/mL Normal [...] in selective patients <6.0%. Please refer to [place] [employer] diabetic care guidelines for further information. 3 ADDITIONAL INFORMATION This test was developed using an analyte specific reagent. Its performance characteristics were determined by [facility] in a manner consistent with CLIA requirements. This test has not been cleared or approved by the U.S. Food and Drug Administration. 4 ADDITIONAL INFORMATION This test was developed using an analyte specific reagent. Its performance characteristics were determined by [facility] in a manner consistent with CLIA requirements. This test has not been cleared or approved by the U.S. Food and Drug Administration. 5 ADDITIONAL INFORMATION This test was developed using an analyte specific reagent. Its performance characteristics were determined by [facility] in a manner consistent with CLIA requirements. [...] in 2-4 weeks. Test Performed by: [facility] [address] Skin Specialist: Robert Marshall M.D. Ph.D.; CLIA# [id number] 7 <1:80 (Negative) REFERENCE VALUE <1:80 (Negative) Test Performed by: [facility] [place] [address] Skin Specialist: Robert Marshall M.D. Ph.D.; CLIA# [id number] 8 Normally menstruating females - Follicular phase [...] 12 15-115 11 Test Performed by: [facility] [address] Skin Specialist: Robert Marshall M.D. Ph.D.; CLIA# [id number] 12 REFERENCE VALUE 7.2-63 (a.m. collection) Test Performed by: [facility] [address] Skin Specialist: Robert Marshall M.D. Ph.D.; CLIA# [id number] 13 REFERENCE VALUE -2.0 - +2.0 ADDITIONAL INFORMATION This test was developed and its performance characteristics determined by [facility] in a manner consistent with CLIA requirements. This test has not been cleared or approved by the U.S. Food and Drug Administration. Test Performed by: [facility] [address] Skin Specialist: Robert Marshall M.D. Ph.D.; CLIA# [id number] 14 REFERENCE VALUE 18-144 (non-) Test Performed by: [facility] [address] Skin Specialist: Robert Marshall M.D. Ph.D.; CLIA# [id number] 15 Because ethnic data is not always [...] 5 Kidney failure <15 (or dialysis) 16 [facility] Severe Sepsis and Septic Shock Management Bundle Measure requires all lactic acids initially measuring >2.0 mmol/L be repeated. 17 Standard intensity warfarin therapeutic range: 2.0-3.0 High intensity warfarin therapeutic range: 2.5-3.5 Procedures Date Code Description Status 09/20/2019 41140 Holter Monitor Review (24 hr)dr review & interp only Completed 09/19/2019 29746 ECG Monitor/Recording W/Visual Superimposition Scanning Completed 08/15/2019 64160 Nerve Conduction 03-04 Studies Completed 08/15/2019 49566 Needle Electromyography Complete, Five Or More Muscles Completed Studied 07/10/2019 12898 EEG Recording Awake & Drowsy Completed 05/31/2019 89166 EEG Recording Awake & Drowsy Completed 06/24/2010 14807838 Mammogram Completed Medical Devices Description No Information Available Encounters Type Date Location Provider Dx Diagnosis Office Visit 09/07/2019 [facility] Vanessa White M.D., R55 Syncope and 2:00p Medicine - Ccmob FACP collapse G40.89 Other seizures G89.4 Chronic pain syndrome F17.210 Nicotine dependence, cigarettes, uncomplicated Office Visit 09/01/2019 11:30a [facility] Leandro Gagnon, R55 Syncope and [employer] collapse G43.009 Migraine w/o aura, not intractable, w/o status migrainosus R53.83 Other fatigue Office Visit 08/29/2019 Tj Cuevas, S46.011D Strain of 1:15p Orthopedics at MD maria/tend the [place] rotator cuff of right shoulder, subs Office Visit 08/22/2019 [facility] Internal Bagum Gilson G89.4 Chronic pain 3:00p Medicine - Lorraine Prieto NP syndrome Office Visit 08/22/2019 [facility] Cuevas, S46.011D Strain of 1:15p Orthopedics at [facility] maria/tend the [place] rotator cuff of right shoulder, subs G56.21 Lesion of ulnar nerve, right upper limb G56.22 Lesion of ulnar nerve, left upper limb Office Visit 08/07/2019 [facility] Giana M75.41 Impingement 1:30p Orthopedics at [facility] Don syndrome of right [place] shoulder S46.011A Strain of musc/tend the rotator cuff of right shoulder, init M25.511 Pain in right shoulder Office Visit 07/24/2019 2:45p [facility] Tory Weathers, M25.511 Pain in right at [facility] shoulder S46.011A Strain of musc/tend the rotator cuff of right shoulder, init M75.41 Impingement syndrome of right shoulder Office Visit 07/21/2019 [facility] Leandro Gagnon, G43.009 Migraine w/o 11:00a Clinic [employer] aura, not intractable, w/o status migrainosus R55 Syncope and collapse F07.81 Postconcussional syndrome Office Visit 07/19/2019 11:15a [facility] Damon S46.011D Strain of at MD candace Flower/tend the rotator cuff of right shoulder, subs G56.01 Carpal tunnel syndrome, right upper limb G56.21 Lesion of ulnar nerve, right upper limb Office Visit 06/28/2019 [facility] Le[facility] Gagnon, R56.9 Unspecified 3:00p Clinic [employer] SU[employer] convulsions G43.009 Migraine w/o aura, not intractable, w/o status migrainosus M54.2 Cervicalgia Office Visit 05/16/2019 2:40p [facility] Internal Maritza G40.89 Other seizures Medicine [...] intractable, without status epilepticus 09/15/2019 Z79.899 Other red lead burner (current) drug Leandro Gagnon NP therapy 09/07/2019 R55 Syncope and collapse Vanessa Whtie M.D., FACP 09/07/2019 G40.89 Other seizures Vanessa [...] G43.009 Migraine without aura, not Leandro Kalin, [employer]IGENCE [employer] SUPERVISOR intractable, without status migrainosus 07/21/2019 R55 Syncope and collapse Leandro Gagnon, INTELLIGENCE [employer] SUPERVISOR 07/21/2019 F07.81 Postconcussional syndrome Leandro Gagnon, INTELLIGENCE [employer] SUPERVISOR 07/19/2019 S46.011D Strain of muscle(s) and tendon(s) of Damon Cuevas MD the rotator cuff of right shoulder, subsequent encounter 07/19/2019 G56.01 Carpal tunnel syndrome, right upper Damon Cuevas MD limb 07/19/2019 G56.21 Lesion of ulnar nerve, right upper Damon Cuevas MD limb 07/10/2019 R56.9 Unspecified convulsions Kamaljit Florentino M.D. 06/28/2019 R56.9 Unspecified convulsions Leandro Gagnon, JANETH 06/28/2019 G43.009 Migraine without aura, not Leandro Knaake, [employer]TE[employer]IGENCE [employer] SUPERVISOR intractable, without status migrainosus 06/28/2019 M54.2 Cervicalgia [...] 11:30 am - [facility] 9:00 am - Damon Cuevas MD at [facility] at [email or web address] 9:30 am - Damon Cuevas MD at [facility] at [id number] 11:00 am - Damon Cuevas MD at [facility] at Asmaes4011/13/2019 7: 30 am - Damon Cuevas MD at [facility] at [place]7509/25/2019 - Darren Clemens MDK03.81 Cracked xvymiN08.4 Chronic pain syndromeNew Medication:Acetaminophen- Codeine #3 300-30 mg - take 1 tab q8 hoursComments:No more than 4 gm of Tylenol from all sources a day.M54.5 Low back painNew Xrays:MRI Lumbar Spine W/O, Ordered: 09/25/19M25.511 Pain in right pknwdhodZ48.0 Anesthesia of skinI73.00 Raynaud's syndrome without gangreneReferral:Julienne Crews MD, NszqlpchmpirY45 Rash and other nonspecific skin eruption Functional Status Description No Information Available Mental Status Description No Information Available Referrals Refer to Dr Reason for Referral Status Appt Date Julienne Crews MD raynaud's, Created [address] [place] [address] [phone] Darren Clemens MD Needs to establish care with a PCP to be cleared Created for upcoming dental and shoulder surgery. [address] [place] [address] [phone] Milton Cai MD Previous patient; describes syncopal events, Sent lightheadedness, dizziness [address] [facility] [address] [place] [address] [phone] Adal Mendieta MD Patient Notified 09/06/[address] [place] [id number] [phone] Nelson Schmid M.D. Sent 06/28/2019 [address] [facility] [address] [place] [address] [phone]
--- OUTSIDE RECORDS SUMMARY | 2019-10-25 11:49 | XMS REPORT | Continuity of Care Document ---
:1985 External Reference #:[id number] Author Name Darren Clemens MD (transmitted by agent of provider Franchesca Bonner) Address [address] [place] [id number] Care Team Providers Name Role Phone Destin Mayer M.D. - Family Medicine Care Team Information Sleeve Turner Jimmy Becker DO - Interventional Care Team Information Sleeve Turner Pain Medicine [facility] - Sleep Disorder Care Team Information Sleeve Turner [phone] Diagnostic Dwayne Fermin MD - Orthopaedic Care Team Information Sleeve Turner Surgery Milton Moreno MD - Otolaryngology Care Team Information Sleeve Turner Mars Snyder MD - Interventional Care Team Information Sleeve Turner Pain Medicine Belgica Cueto MD - Endocrinology, Care Team Information Sleeve Turner Diabetes & Metabolism Kamaljit Soria M.D. - Neurological Care Team Information Sleeve Turner [phone] Surgery Adal Mendieta MD - Endocrinology, Care Team Information Sleeve Turner [phone] Diabetes & Metabolism Nelson Schmid M.D. - Neurology Care Team Information Sleeve Turner Darren Clemens MD - Hospitalist Care Team Information Sleeve Turner [phone] Problems Active Problems Provider Date Congenital spondylolysis [...] Fludrocortisone take 1 tab by 30tabs Zarina Rbuio, 09/26/2019 Acetate mouth daily N.P. 0.1mg Tablets [...] M54.5 Leatha Jenkins, 2012 fracture, kyphosis [facility] E888.9 Zofran take 1 tab every 6 Unknown 4mg Tablets hours as needed for vomiting. Omeprazole 1 by mouth every day 30caps Maritza Del Cdi, 40mg Capsules DR as needed Tima History [...] # [id number] Given 05/04/2013 Flu Vaccine NOS 19931 Given 10/27/2012 Tdap - Tetanus/Diptheria/Acellular Pertussis [id number] Vital Signs Date Vital Result Comment 09/26/2019 [...] Result H/L Range Note Laboratory test 09/25/2019 [facility] Vitamin B12 <pending> finding [address] [place] [address] [phone] CBC Auto Diff 09/08/2019 [facility] White Blood 5.4 10^3/uL Normal 3.5-10.[address] [place] [address] [phone] Red Blood Count 4.56 10^6/uL Normal 3.70-4.87 [...] Blood Cells % 0.1 Comp Metabolic 09/08/2019 [facility] Sodium 135 mmol/L Normal 135-[address] [place] [address] [phone] Potassium 4.1 mmol/L Normal 3.5-5.0 Chloride 104 [...] Egfr 100.0 >60 1 Laboratory test 09/08/2019 [facility] Hemoglobin A1c 5.2 % Normal 4.0-5.[address] (Glyco HGB) [place] [address] [phone] T3 Total 102 ng/dL Normal 87-178 Thyroxine 6.59 g/dL Normal 6.09-12.23 Thyroid 09/08/2019 [facility] Thyroid 2.06 Normal <[address] Peroxidase IU/[place] [address] Antibodies [phone] Thyroglobulin Antibody II 0.0 IU/mL <4.0 Tick-Borne 09/08/2019 [facility] Anaplasma <1:64 <1:[address] phagocyt[place] [address] [phone] Babesia microti IgG Ab, S <1:64 titer <1:64 4 Ehrlichia chaffeensis IgG AB <1:64 titer <1:64 5 Lyme Disease Serology Negative Negative 6 Laboratory test 09/08/2019 [facility] Erythrocyte Sed 5 mm/Hr Normal 0-[address] [place] [address] [phone] C Reactive Protein 4.18 mg/L Normal <8.01 Nuclear AB (Carmita) By Ifa Igg <1:80 (Negative) 7 FSH And LH 09/08/2019 [facility] FSH (Follicle Stim 6.4 mIU/mL [address] DR[address] Hormone) [place] [address] [phone] LH (Lutenizing Hormone) 5.4 mIU/mL 9 Laboratory test finding 09/08/2019 [facility] Estradiol 45 pg/ mL [address] [place] [address] [phone] Dhea Sulfate 60 g/dL 45-295 11 TSH (Thyroid Stim Horm) 1.30 mcIU/mL Normal 0.34-5.60 Testosterone Total < 10.00 ng/dL Normal 8-60 Acth 17 pg/mL 12 Insulin-Like Growth 09/08/2019 [facility] Insulin like 166 ng/ mL 59-279 Factor [address] [place] [address] I [phone] Igf1 Z-score 0.52 SD 13 Laboratory test 09/08/2019 [facility] Prolactin 24.5 ng/mL Normal 1.0-25.0 finding [address] [place] [address] [phone] Free T4 (Free Thyroxine) 0.87 ng/dL Normal 0.61-1.12 Sex Hormone Binding Globulin 34 nmol/L 14 Laboratory test 06/11/2019 [facility] Magnesium 1.8 mg/dL Low 1.9-2.7 finding [address] [place] [address] [phone] Urinalysis 06/11/2019 [facility] Urine Color Yellow Profile [address] [place] [address] [phone] Urine Appearance Clear Urine Specific [place] 1.011 Normal 1.010-1.030 Urine pH 5.0 Normal 5-9 Urine Urobilinogen Negative Negative Urine Ketones Negative Negative Urine Protein Negative Negative Urine Leukocytes Negative Negative Urine Blood Negative Negative Urine Nitrite Negative Negative Urine Bilirubin Negative Negative Urine Glucose Negative Negative Comp Metabolic Panel 06/11/2019 [facility] Sodium 134 mmol/L Low 135-145 [address] [place] [address] [phone] Potassium 3.5 mmol/L Normal 3.5-5.0 Chloride 102 [...] Egfr 88.4 >60 15 Laboratory test 06/11/2019 [facility] Lactic Acid 0.9 mmol/L Normal 0.5-2.0 [address] [place] [address] [phone] CBC Auto Diff 06/11/2019 [facility] White Blood 9.6 Normal 3.5 -10.[address] Count 10^3/[place] [address] [phone] Red Blood Count 4.17 10^6/uL Normal 3.70-4.87 [...] Red Blood Cells % 0.0 Inr/Protime 06/11/2019 [facility] Inr 1.06 Normal 0.82-1.[address] [place] [address] [phone] Laboratory test 05/16/2019 [facility] Prolactin 19.7 Normal 1.0-25.[address] ng/[place] [address] [phone] TSH (Thyroid Stim Horm) 1.36 mcIU/mL Normal [...] in selective patients <6.0%. Please refer to [place] [employer] diabetic care guidelines for further information. 3 ADDITIONAL INFORMATION This test was developed using an analyte specific reagent. Its performance characteristics were determined by [facility] in a manner consistent with CLIA requirements. This test has not been cleared or approved by the U.S. Food and Drug Administration. 4 ADDITIONAL INFORMATION This test was developed using an analyte specific reagent. Its performance characteristics were determined by [facility] in a manner consistent with CLIA requirements. This test has not been cleared or approved by the U.S. Food and Drug Administration. 5 ADDITIONAL INFORMATION This test was developed using an analyte specific reagent. Its performance characteristics were determined by [facility] in a manner consistent with CLIA [...] in 2-4 weeks. Test Performed by: [facility] [place] [address] [employer] Developer: Robert Marshall M.D. Ph.D.; CLIA# [id number] 7 <1:80 (Negative) REFERENCE VALUE <1:80 (Negative) Test Performed by: [place] [address] [employer] Developer: Robert Marshall M.D. Ph.D.; CLIA# [id number] 8 Normally menstruating females - Follicular phase [...] 12 15-115 11 Test Performed by: [facility] [address] [employer] Developer: Robert Marshall M.D. Ph.D.; CLIA# [id number] 12 REFERENCE VALUE 7.2-63 (a.m. collection) Test Performed by: [place] [address] [employer] Developer: Robert Marshall M.D. Ph.D.; CLIA# [id number] 13 REFERENCE VALUE -2.0 - +2.0 ADDITIONAL INFORMATION This test was developed and its performance characteristics determined by [facility] in a manner consistent with CLIA requirements. This test has not been cleared or approved by the U.S. Food and Drug Administration. Test Performed by: [facility] [address] [employer] Developer: Robert Marshall M.D. Ph.D.; CLIA# [id number] 14 REFERENCE VALUE 18-144 (non-) Test Performed by: [facility] [address] [employer] Developer: Robert Marshall M.D. Ph.D.; CLIA# [id number] 15 Because ethnic data is not always [...] 5 Kidney failure <15 (or dialysis) 16 [facility] Severe Sepsis and Septic Shock Management Bundle Measure requires all lactic acids initially measuring >2.0 mmol/L be repeated. 17 Standard intensity warfarin therapeutic range: 2.0-3.0 High intensity warfarin therapeutic range: 2.5-3.5 Procedures Date Code Description Status 09/26/2019 43291 EKG Tracing & Interpretation Completed 09/20/2019 34426 Holter Monitor Review (24 hr)dr review & interp only Completed 09/19/2019 09858 ECG Monitor/Recording W/Visual Superimposition Scanning Completed 09/19/2019 89499 ECG Monitor/Recording W/Visual Superimposition Scanning Completed 09/08/2019 50323 EEG Recording Awake & Drowsy Completed 08/15/2019 64334 Nerve Conduction 03-04 Studies Completed 08/15/2019 51562 Needle Electromyography Complete, Five Or More Muscles Completed Studied 07/10/2019 63013 EEG Recording Awake & Drowsy Completed 05/31/2019 93759 EEG Recording Awake & Drowsy Completed 06/24/2010 [id number] Mammogram Completed Medical Devices Description No Information Available Encounters Type Date Location Provider Dx Diagnosis Office Visit 10/12/2019 [facility] Zarina Rubio, R55 Syncope and 2:00p N.P. 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 R55 Syncope and collapse Z72.0 Tobacco use R00.2 Palpitations Office Visit 09/15/2019 [facility] Le[facility] Gagnon, G40.209 Local-rel 10:00a Clinic [employer] symptc epi w cmplx prt seiz,not ntrct,w/o stat epi Z79.899 Other retirement (current) drug therapy Office Visit 09/07/2019 2:00p [facility] Vanessa [place], R55 Syncope and Medicine - Lorraine Alfred, FACP collapse G40.89 Other seizures G89.4 Chronic pain syndrome F17.210 Nicotine dependence, cigarettes, uncomplicated Office Visit 09/06/2019 2:00p [facility] Galeasemeka Mendieta, 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 R68.82 Decreased libido N92.6 Irregular menstruation, unspecified R53.83 Other fatigue Office Visit 09/01/2019 11:30a [facility] Leandro Gagnon, R55 Syncope and [employer] collapse G43.009 Migraine w/o aura, not intractable, w/o status migrainosus R53.83 Other fatigue Office Visit 08/29/2019 Tj Cuevas, S46.011D Strain of 1:15p Orthopedics at [facility] maria/tend the [place] rotator cuff of right shoulder, subs Office Visit 08/22/2019 [facility] Bagum Gilson G89.4 Chronic [facility] [employer] syndrome Office Visit 08/22/2019 Tj Cuevas, S46.011D Strain of 1:15p Orthopedics at [facility] maria/tend the [place] rotator cuff of right shoulder, subs G56.21 Lesion of ulnar nerve, right upper limb G56.22 Lesion of ulnar nerve, left upper limb Office Visit 08/07/2019 [facility] M75.41 Impingement 1:30p Orthopedics at [facility] Don syndrome of right [place] shoulder S46.011A Strain of musc/tend the rotator cuff of right shoulder, init M25.511 Pain in right shoulder Office Visit 07/24/2019 2:45p [facility] Tory Weathers, M25.511 Pain in right at [facility] shoulder S46.011A Strain of musc/tend the rotator cuff of right shoulder, init M75.41 Impingement syndrome of right shoulder Office Visit 07/21/2019 [facility] Le[facility] Gagnon, G43.009 Migraine w/o 11:00a Clinic [employer] aura, not intractable, w/o status migrainosus R55 Syncope and collapse F07.81 Postconcussional syndrome Office Visit 07/19/2019 11:15a [facility] Damon S46.011D Strain of at MD candace Flower/tend the rotator cuff of right shoulder, subs G56.01 Carpal tunnel syndrome, right upper limb G56.21 Lesion of ulnar nerve, right upper limb Office Visit 06/28/2019 [facility] Le[facility] Gagnon, R56.9 Unspecified 3:00p Clinic [employer] convulsions G43.009 Migraine w/o aura, not intractable, w/o status migrainosus M54.2 Cervicalgia Office Visit 05/16/2019 2:40p [facility] Maritza G40.89 Other seizures [facility] 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 05/16/2019 D35.2 Benign neoplasm of pituitary gland Maritza Del Cid M.D. 05/16/2019 Z72.0 Tobacco use Maritza Del Cid M.D. 05/16/2019 G50.1 Atypical facial pain Maritza Del Cid M.D. Plan of Treatment Future Appointment(s):10/31/2019 11:00 am - Aron Holland M.D. at [facility]10/20/2019 11:30 am - Leandro Gagnon NP at [facility] Functional Status Description No Information Available Mental Status Description No Information Available Referrals Refer to Reason for Referral Status Appt Date Julienne Crews MD raynaud's, Sent 10/31/2019 [address], [place] [address] [phone] Darren Clemens MD Needs to establish care with a PCP to be cleared Scheduled for upcoming dental and shoulder surgery. [address] [place] [address] [phone] Milton Cai MD Previous patient; describes syncopal events, Sent lightheadedness, dizziness [address] [place] [address] [phone] Adal Mendieta MD Patient Notified 09/06/[address] [place] [address] [phone] Nelson Schmid M.D. Sent 06/28/2019 [address] [place] [address] [place] [id number] [phone]
--- OUTSIDE RECORDS SUMMARY | 2019-10-25 11:49 | XMS REPORT | Continuity of Care Document ---
:1985 External Reference #:[id number] Author Name Leandro Gagnon NP (transmitted by agent of provider Ellie Salamanca) Address [address] [facility], [place] [address] Care Team Providers Name Role Phone Destin Mayer M.D. - Family Medicine Care Team Information Kier Tender [phone] Jimmy Becker DO - Interventional Care Team Information Kier Tender Pain Medicine [facility] [place] [facility] - Sleep Disorder Care Team Information Kier Tender [phone] Diagnostic Dwayne Fermin MD - Orthopaedic Care Team Information Kier Tender Surgery Milton Moreno MD - Otolaryngology Care Team Information Kier Tender Mars Snyder MD - Interventional Care Team Information Kier Tender Pain Medicine Belgica Cueto MD - Endocrinology, Care Team Information Kier Tender Diabetes & Metabolism Kamaljit Soria M.D. - Neurological Care Team Information Kier Tender [phone] Surgery Adal Mendieta MD - Endocrinology, Care Team Information Kier Tender Diabetes & Metabolism Nelson Schmid M.D. - Neurology Care Team Information Kier Tender [phone] Darren Clemens MD - Hospitalist Care Team Information Kier Tender [phone] Problems Active Problems Provider Date Congenital spondylolysis [...] 1 by mouth every 30tabs I95.1 Milton uHynh 09/26/2019 Acetate grady Cai M.D. 0.1mg Tablets Lamotrigine take 3 tabs by 56tabs Kamaljit Mccoy 09/25/2019 25mg Tablets mouth daily then Tima Florentino call. Acetaminophen-Codeine take 1 tab q8 21tabs G89.4 Darren Clemens MD 09/25/2019 #3 hours 300-30mg Tablets Alprazolam take one tab by 30tabs G40.209 Kamaljit Mccoy 09/15/2019 0.25mg Tablets mouth at bedtime, Chadd, M.D. as needed for insomnia. mdd 1 Sumatriptan [...] M54.5 Leatha Jenkins, 2012 fracture, kyphosis Tima [facility] E888.9 Omeprazole 1 by mouth every 30caps Maritza Del Cid M.D. 40mg Capsules DR day as needed Zofran take 1 tab every 6 Unknown 4mg Tablets hours as needed for vomiting. History Medications Lamotrigine 2 tabs by mouth [...] # [id number] Given 05/04/2013 Flu Vacc[place] NOS [address] Given 10/27/2012 Tdap - Tetanus/Diptheria/Acellular Pertussis [id number] Vital Signs Date Vital Result Comment 09/26/2019 [...] H/L Range Note Laboratory test 09/25/2019 [facility] Vitamin B12 <pending> finding [address] [place] [address] [phone] Order 09/19/2019 [facility] Holter <pending> [address] [place] [address] [phone] CBC Auto Diff 09/08/2019 [facility] White Blood 5.4 10^3/uL Normal 3.5-10.[address] [place] [address] [phone] Red Blood Count 4.56 10^6/uL Normal 3.70-4.87 [...] Cells % 0.1 Comp Metabolic 09/08/2019 [facility] Sodium 135 mmol/L Normal 135-[address] [place] [address] [phone] Potassium 4.1 mmol/L Normal 3.5-5.0 Chloride 104 [...] 100.0 >60 1 Laboratory test 09/08/2019 [facility] Hemoglobin A1c 5.2 % Normal 4.0-5.[address] (Glyco HGB) [place] [address] [phone] T3 Total 102 ng/dL Normal 87-178 Thyroxine 6.59 g/dL Normal 6.09-12.23 Thyroid 09/08/2019 [facility] Thyroid 2.06 Normal <[address] Peroxidase IU/[place] [address] Antibodies [phone] Thyroglobulin Antibody II 0.0 IU/mL <4.0 Tick-Borne 09/08/2019 [facility] Anaplasma <1:64 <1:64 3 Disease AB phagocytophil[place] [address] [phone] Babesia microti IgG Ab, S <1:64 titer <1:64 4 Ehrlichia chaffeensis IgG AB <1:64 titer <1:64 5 Lyme Disease Serology Negative Negative 6 Laboratory test 09/08/2019 [facility] Erythrocyte Sed 5 mm/Hr Normal 0-[address] [place] [address] [phone] C Reactive Protein 4.18 mg/L Normal <8.01 Nuclear AB (Carmita) By Ifa Igg <1:80 (Negative) 7 FSH And LH 09/08/2019 [facility] FSH (Follicle Stim 6.4 mIU/mL 8 Hormone) [place] [address] [phone] LH (Lutenizing Hormone) 5.4 mIU/mL 9 Laboratory test finding 09/08/2019 [facility] Estradiol 45 pg/ mL 10 [place] [address] [phone] Dhea Sulfate 60 g/dL 45-295 11 TSH (Thyroid Stim Horm) 1.30 mcIU/mL Normal 0.34-5.60 Testosterone Total < 10.00 ng/dL Normal 8-60 Acth 17 pg/mL 12 Insulin-Like Growth 09/08/2019 [facility] Insulin like 166 ng/ mL 59-279 Factor 1 [facility] [place] [address] I [phone] Igf1 Z-score 0.52 SD 13 Laboratory test 09/08/2019 [facility] Prolactin 24.5 ng/mL Normal 1.0-25.0 [place] [address] [phone] Free T4 (Free Thyroxine) 0.87 ng/dL Normal 0.61-1.12 Sex Hormone Binding Globulin 34 nmol/L 14 Laboratory test 06/11/2019 [facility] Magnesium 1.8 mg/dL Low 1.9-2.7 finding [address] [place] [address] [phone] Urinalysis 06/11/2019 [facility] Urine Color Yellow Profile [address] [place] [address] [phone] Urine Appearance Clear Urine Specific [place] 1.011 Normal 1.010-1.030 Urine pH 5.0 Normal 5-9 Urine Urobilinogen Negative Negative Urine Ketones Negative Negative Urine Protein Negative Negative Urine Leukocytes Negative Negative Urine Blood Negative Negative Urine Nitrite Negative Negative Urine Bilirubin Negative Negative Urine Glucose Negative Negative Comp Metabolic Panel 06/11/2019 [facility] Sodium 134 mmol/L Low 135-145 [address] [place] [address] [phone] Potassium 3.5 mmol/L Normal 3.5-5.0 Chloride 102 [...] 88.4 >60 15 Laboratory test 06/11/2019 [facility] Lactic Acid 0.9 mmol/L Normal 0.5-2.0 16 finding [address] [place] [address] [phone] CBC Auto Diff 06/11/2019 [facility] White Blood 9.6 Normal 3.5 -10.8 [address] [facility] Count 10^3/[place] [address] [phone] Red Blood Count 4.17 10^6/uL Normal 3.70-4.87 [...] Blood Cells % 0.0 Inr/Protime 06/11/2019 [facility] Inr 1.06 Normal 0.82-1.[address] [place] [address] [phone] Laboratory test 05/16/2019 [facility] Prolactin 19.7 Normal 1.0-25.[address] ng/[place] [address] [phone] TSH (Thyroid Stim Horm) 1.36 mcIU/mL Normal [...] in selective patients <6.0%. Please refer to [place] [employer] diabetic care guidelines for further information. 3 ADDITIONAL INFORMATION This test was developed using an analyte specific reagent. Its performance characteristics were determined by [facility] in a manner consistent with CLIA requirements. This test has not been cleared or approved by the U.S. Food and Drug Administration. 4 ADDITIONAL INFORMATION This test was developed using an analyte specific reagent. Its performance characteristics were determined by [facility] in a manner consistent with CLIA requirements. This test has not been cleared or approved by the U.S. Food and Drug Administration. 5 ADDITIONAL INFORMATION This test was developed using an analyte specific reagent. Its performance characteristics were determined by [facility] in a manner consistent with CLIA [...] tested in 2-4 weeks. Test Performed by: [facility] [place] [address] Dredge Master: Robert Marshall M.D. Ph.D.; CLIA# [id number] 7 <1:80 (Negative) REFERENCE VALUE <1:80 (Negative) Test Performed by: [facility] [place] [address] Dredge Master: Robert Marshall M.D. Ph.D.; CLIA# [id number] 8 Normally menstruating females - Follicular phase [...] + 12 15-115 11 Test Performed by: [facility] [place] [address] Dredge Master: Robert Marshall M.D. Ph.D.; CLIA# [id number] 12 REFERENCE VALUE 7.2-63 (a.m. collection) Test Performed by: [facility] [place] [address] Dredge Master: Robert Marshall M.D. Ph.D.; CLIA# [id number] 13 REFERENCE VALUE -2.0 - +2.0 ADDITIONAL INFORMATION This test was developed and its performance characteristics determined by [facility] in a manner consistent with CLIA requirements. This test has not been cleared or approved by the U.S. Food and Drug Administration. Test Performed by: [facility] [place] [address] Dredge Master: Robert Marshall M.D. Ph.D.; CLIA# [id number] 14 REFERENCE VALUE 18-144 (non-) Test Performed by: [facility] - [facility] [address] [place] [address] Dredge Master: Robert Marshall M.D. Ph.D.; [facility]# [id number] 15 Because ethnic data is not always [...] 5 Kidney failure <15 (or dialysis) 16 [facility] Severe Sepsis and Septic Shock Management Bundle Measure requires all lactic acids initially measuring >2.0 mmol/L be repeated. 17 Standard intensity warfarin therapeutic range: 2.0-3.0 High intensity warfarin therapeutic range: 2.5-3.5 Procedures Date Code Description Status 09/26/2019 07695 EKG Tracing & Interpretation Completed 09/20/2019 73876 Holter Monitor Review (24 hr)dr review & interp only Completed 09/19/2019 72183 ECG Monitor/Recording W/Visual Superimposition Scanning Completed 09/19/2019 35656 ECG Monitor/Recording W/Visual Superimposition Scanning Completed 08/15/2019 15909 Nerve Conduction 03-04 Studies Completed 08/15/2019 66640 Needle Electromyography Complete, Five Or More Muscles Completed Studied 07/10/2019 44768 EEG Recording Awake & Drowsy Completed 05/31/2019 61609 EEG Recording Awake & Drowsy Completed 06/24/2010 77800255 Mammogram Completed Medical Devices Description No Information Available Encounters Type Date Location Provider Dx Diagnosis Office Visit 09/15/2019 [facility] Leandro Gagnon, MORTGAGE CONSULTANT G40.209 Local-rel 10:00a symptc epi w cmplx prt seiz,not ntrct,w/o stat epi Z79.899 Other manager intermediate (current) drug therapy Office Visit 09/07/2019 2:00p [facility] Internal Vanessa White, R55 Syncope and Medicine - Lorraine Alfred, FACP collapse G40.89 Other seizures G89.4 Chronic pain syndrome F17.210 Nicotine dependence, cigarettes, uncomplicated Office Visit 09/06/2019 2:00p [facility] Galeas Coch, 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 R68.82 Decreased libido N92.6 Irregular menstruation, unspecified R53.83 Other fatigue Office Visit 09/01/2019 11:30a [facility] Leandro Kalin, R55 Syncope and MORTGAGE CONSULTANT collapse G43.009 Migraine w/o aura, not intractable, w/o status migrainosus R53.83 Other fatigue Office Visit 08/29/2019 [place], S46.011D Strain of 1:15p Orthopedics at MD maria/tend the [place] rotator cuff of right shoulder, subs Office Visit 08/22/2019 [facility] Internal Edd Riggins G89.4 [facility] 3:[facility]GAGE CONSULTANT syndrome Office Visit 08/22/2019 [place], S46.011D Strain of 1:15p Orthopedics at [facility] maria/tend the [place] rotator cuff of right shoulder, subs G56.21 Lesion of ulnar nerve, right upper limb G56.22 Lesion of ulnar nerve, left upper limb Office Visit 08/07/2019 [facility] [place]iana M75.41 Impingement 1:30p Orthopedics at [facility]ima Don syndrome of right [place] shoulder S46.011A Strain of musc/tend the rotator cuff of right shoulder, init M25.511 Pain in right shoulder Office Visit 07/24/2019 2:45p [facility] Tory Weathers M25.511 Pain in right at [place] RPA-C shoulder S46.011A Strain of musc/tend the rotator cuff of right shoulder, init M75.41 Impingement syndrome of right shoulder Office Visit 07/21/2019 [facility] Kalin, G43.009 Migraine w/o 11:00a Clinic MORTGAGE CONSULTANT aura, not intractable, w/o status migrainosus R55 Syncope and collapse F07.81 Postconcussional syndrome Office Visit 07/19/2019 11:15a [facility] Damon S46.011D Strain of at Lidia Cuevas MD musc/tend the rotator cuff of right shoulder, subs G56.01 Carpal tunnel syndrome, right upper limb G56.21 Lesion of ulnar nerve, right upper limb Office Visit 06/28/2019 [facility] Kalin, R56.9 Unspecified 3:00p Clinic MORTGAGE CONSULTANT convulsions G43.009 Migraine w/o aura, not intractable, w/o status migrainosus M54.2 Cervicalgia Office Visit 05/16/2019 2:40p Accounts 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 D35.2 Benign neoplasm of pituitary gland Z72.0 Tobacco use G50.1 Atypical facial pain Assessments Date Code Description Provider 09/26/2019 I73.00 Raynaud's syndrome without gangrene Milton Cai M.D. 09/26/2019 R55 Syncope and collapse Milton Cai M.D. 09/26/2019 Z72.0 Tobacco use Milton Cai M.D. 09/26/2019 R00.2 Palpitations Milton Cai M.D. 09/26/2019 I95.1 Orthostatic hypotension Milton Cai M.D. 09/25/2019 K03.81 Cracked tooth [...] intractable, without status epilepticus 09/15/2019 Z79.899 Other half-way (current) drug Leandro Gagnon NP therapy 09/07/2019 [...] limb 08/07/2019 M75.41 Impingement syndrome of right Ginaa Don M.D. shoulder 08/07/2019 S46.011A Strain of [...] 07/21/2019 G43.009 Migraine without aura, not Leandro Kailn, MORTGAGE CONSULTANT intractable, without status migrainosus 07/21/2019 R55 Syncope and collapse Leandro Gagnon, MORTGAGE CONSULTANT 07/21/2019 F07.81 Postconcussional syndrome Leandro Gagnon, MORTGAGE CONSULTANT 07/19/2019 S46.011D Strain of muscle(s) and tendon(s) of Damon Cuevas MD the rotator cuff of right shoulder, subsequent encounter 07/19/2019 G56.01 Carpal tunnel syndrome, right upper Damon Cuevas MD limb 07/19/2019 G56.21 Lesion of ulnar nerve, right upper Damon Cuevas MD limb 07/10/2019 R56.9 Unspecified convulsions Kamaljit Florentino M.D. 06/28/2019 R56.9 Unspecified convulsions Leandro Gagnon NP 06/28/2019 G43.009 Migraine without aura, not Leandro Knaasylvia, MORTGAGE CONSULTANT intractable, without status migrainosus 06/28/2019 M54.2 Cervicalgia [...] - Aron Holland M.D. at [facility]10/20/2019 11:30 am - Leandro Gagnon NP at [facility] [id number]/11/2019 9:00 am - Damon Cuevas MD at [facility] at [id number] 9:30 am - Damon Cuevas MD at [facility] at [id number] 11:00 am - Damon Cuevas MD at [facility] at [id number]/13/2019 7: 30 am - Damon Cuevas MD at [facility] at [id number]/25/2019 - Darren Clemens MDK03.81 Cracked gevyqV09.4 Chronic pain syndromeNew Medication:Acetaminophen- Codeine #3 300-30 mg - take 1 tab q8 hoursComments:No more than 4 gm of Tylenol from all sources a day.M54.5 Low back painNew Xrays:MRI Lumbar Spine W/O, Ordered: 09/25/19M25.511 Pain in right ahzptunpV15.0 Anesthesia of skinI73.00 Raynaud's syndrome without gangreneReferral:Julienne Crews MD, OszqptvadpygD05 Rash and other nonspecific skin eruption Functional Status Description No Information Available Mental Status Description No Information Available Referrals Refer to Dr Reason for Referral Status Appt Date Julienne Crews MD raynaud's, Sent [address] [place] [address] [phone] Darren Clemens MD Needs to establish care with a PCP to be cleared Scheduled for upcoming dental and shoulder surgery. [address] [place] [address] [place] [address] [phone] Milton Cai MD Previous patient; describes syncopal events, Sent 00/00 /0000 lightheadedness, dizziness [address] [facility] [address] [place] [address] [phone] Adal Mendieta MD Patient Notified 09/06/[address] [place] [address] [phone] Nelson Schmid M.D. Sent 06/28/2019 [address] [facility] [place] [address] [place] [address] [phone]
--- OUTSIDE RECORDS SUMMARY | 2019-10-25 11:49 | XMS REPORT | Continuity of Care Document ---
:1985 External Reference #:[id number] Author Name Joan Clay, Address [address] [place] [address] Care Team Providers Name Role Phone Destin Mayer M.D. - Family Medicine Care Team Information Cellular Equipment Repairer Jimmy Becker DO - Interventional Care Team Information Cellular Equipment Repairer [phone] Pain Medicine [facility] - Sleep Disorder Care Team Information Cellular Equipment Repairer Diagnostic Dwayne Fermin MD - Orthopaedic Care Team Information Cellular Equipment Repairer [phone] Surgery Milton Moreno MD - Otolaryngology Care Team Information Cellular Equipment Repairer Mars Snyder MD - Interventional Care Team Information Cellular Equipment Repairer Pain Medicine Belgica Cueto MD - Endocrinology, Care Team Information Cellular Equipment Repairer Diabetes & Metabolism Kamaljit Soria M.D. - Neurological Care Team Information Cellular Equipment Repairer Surgery Adal Mendieta MD - Endocrinology, Care Team Information Cellular Equipment Repairer Diabetes & Metabolism Nelson Schmid M.D. - Neurology Care Team Information Cellular Equipment Repairer Darren Clemens MD - Hospitalist Care Team Information Cellular Equipment Repairer [phone] Problems Active Problems Provider Date Congenital spondylolysis [...] take 1 tab q8 21tabs G89.4 Joan Bhatiamodesta, 2019 #3 hours as needed DO 300-30mg [...] 2012 [place], [place]ph[place] [facility] [place] Zofran take 1 tab every 6 [...] # [id number] Given 05/04/2013 Flu Vaccine NOS 37242 Given 10/27/2012 Tdap - Tetanus/Diptheria/Acellular Pertussis [id number] Vital Signs Date Vital Result Comment 09/26/2019 [...] Result H/L Range Note Laboratory test 09/25/2019 [facility] Vitamin B12 <pending> finding [address] [place] [address] [phone] CBC Auto Diff 09/08/2019 [facility] White Blood 5.4 10^3/uL Normal 3.5-10.[address] [place] [address] [phone] Red Blood Count 4.56 10^6/uL Normal 3.70-4.87 [...] Blood Cells % 0.1 Comp Metabolic 09/08/2019 [facility] Sodium 135 mmol/L Normal 135-[address] [place] [address] [phone] Potassium 4.1 mmol/L Normal 3.5-5.0 Chloride 104 [...] Egfr 100.0 >60 1 Laboratory test 09/08/2019 [facility] Hemoglobin A1c 5.2 % Normal 4.0-5.[address] (Glyco HGB) [place], [place] [id number] [phone] T3 Total 102 ng/dL Normal 87-178 Thyroxine 6.59 g/dL Normal 6.09-12.23 Thyroid 09/08/2019 [facility] Thyroid 2.06 Normal <[address] Peroxidase IU/[place] [address] Antibodies [phone] Thyroglobulin Antibody II 0.0 IU/mL <4.0 Tick-Borne 09/08/2019 [facility] Anaplasma <1:64 <1:64 3 Disease AB phagocytophilium [place] [address] [phone] Babesia microti IgG Ab, S <1:64 titer <1:64 4 Ehrlichia chaffeensis IgG AB <1:64 titer <1:64 5 Lyme Disease Serology Negative Negative 6 Laboratory test 09/08/2019 [facility] Erythrocyte Sed 5 mm/Hr Normal 0-[address] [place] [address] [phone] C Reactive Protein 4.18 mg/L Normal <8.01 Nuclear AB (Carmita) By Ifa Igg <1:80 (Negative) 7 FSH And LH 09/08/2019 [facility] FSH (Follicle Stim 6.4 mIU/mL [address] DR[address] Hormone) [place] [address] [phone] LH (Lutenizing Hormone) 5.4 mIU/mL 9 Laboratory test finding 09/08/2019 [facility] Estradiol 45 pg/ mL [address] [place] [address] [phone] Dhea Sulfate 60 g/dL 45-295 11 TSH (Thyroid Stim Horm) 1.30 mcIU/mL Normal 0.34-5.60 Testosterone Total < 10.00 ng/dL Normal 8-60 Acth 17 pg/mL 12 Insulin-Like Growth 09/08/2019 [facility] Insulin like 166 ng/ mL 59-[address] [place] [address] I [phone] Igf1 Z-score 0.52 SD 13 Laboratory test 09/08/2019 [facility] Prolactin 24.5 ng/mL Normal 1.0-25.0 finding [address] [place] [address] [phone] Free T4 (Free Thyroxine) 0.87 ng/dL Normal 0.61-1.12 Sex Hormone Binding Globulin 34 nmol/L 14 Laboratory test 06/11/2019 [facility] Magnesium 1.8 mg/dL Low 1.9-2.7 finding [address] [place] [address] [phone] Urinalysis 06/11/2019 [facility] Urine Color Yellow Profile [address] [place] [address] [phone] Urine Appearance Clear Urine Specific [facility] 1.011 Normal 1.010-1.030 Urine pH 5.0 Normal 5-9 Urine Urobilinogen Negative Negative Urine Ketones Negative Negative Urine Protein Negative Negative Urine Leukocytes Negative Negative Urine Blood Negative Negative Urine Nitrite Negative Negative Urine Bilirubin Negative Negative Urine Glucose Negative Negative Comp Metabolic Panel 06/11/2019 [facility] Sodium 134 mmol/L Low 135-145 [address] [place] [address] [phone] Potassium 3.5 mmol/L Normal 3.5-5.0 Chloride 102 [...] Egfr 88.4 >60 15 Laboratory test 06/11/2019 [facility] Lactic Acid 0.9 mmol/L Normal 0.5-2.0 [address] [place] [address] [phone] CBC Auto Diff 06/11/2019 [facility] White Blood 9.6 Normal 3.5 -10.[address] Count 10^3/[place] [address] [phone] Red Blood Count 4.17 10^6/uL Normal 3.70-4.87 [...] Red Blood Cells % 0.0 Inr/Protime 06/11/2019 [facility] Inr 1.06 Normal 0.82-1.[address] [place] [address] [phone] Laboratory test 05/16/2019 [facility] Prolactin 19.7 Normal 1.0-25.[address] ng/[place] [address] [phone] TSH (Thyroid Stim Horm) 1.36 mcIU/mL Normal [...] in selective patients <6.0%. Please refer to [place] [employer] diabetic care guidelines for further information. 3 ADDITIONAL INFORMATION This test was developed using an analyte specific reagent. Its performance characteristics were determined by [facility] in a manner consistent with CLIA requirements. This test has not been cleared or approved by the U.S. Food and Drug Administration. 4 ADDITIONAL INFORMATION This test was developed using an analyte specific reagent. Its performance characteristics were determined by [facility] in a manner consistent with CLIA requirements. This test has not been cleared or approved by the U.S. Food and Drug Administration. 5 ADDITIONAL INFORMATION This test was developed using an analyte specific reagent. Its performance characteristics were determined by [facility] in a manner consistent with CLIA requirements. [...] in 2-4 weeks. Test Performed by: [facility] [place] [address] Burner Machine Operator: Robert Marshall M.D. Ph.D.; CLIA# [id number] 7 <1:80 (Negative) REFERENCE VALUE <1:80 (Negative) Test Performed by: [facility] [place] [address] Burner Machine Operator: Robert Marshall M.D. Ph.D.; CLIA# [id number] 8 Normally menstruating females - Follicular phase [...] + 12 15-115 11 Test Performed by: [place] [address] Burner Machine Operator: Robert Marshall M.D. Ph.D.; CLIA# [id number] 12 REFERENCE VALUE 7.2-63 (a.m. collection) Test Performed by: [place] [address] Burner Machine Operator: Robert Marshall M.D. Ph.D.; CLIA# [id number] 13 REFERENCE VALUE -2.0 - +2.0 ADDITIONAL INFORMATION This test was developed and its performance characteristics determined by [facility] in a manner consistent with CLIA requirements. This test has not been cleared or approved by the U.S. Food and Drug Administration. Test Performed by: [facility] [place] [address] Burner Machine Operator: Robert Marshall M.D. Ph.D.; CLIA# [id number] 14 REFERENCE VALUE 18-144 (non-) Test Performed by: [facility] [place] [address] Burner Machine Operator: Robert Marshall M.D. Ph.D.; CLIA# [id number] 15 Because ethnic data is not always [...] 5 Kidney failure <15 (or dialysis) 16 [facility] Severe Sepsis and Septic Shock Management Bundle Measure requires all lactic acids initially measuring >2.0 mmol/L be repeated. 17 Standard intensity warfarin therapeutic range: 2.0-3.0 High intensity warfarin therapeutic range: 2.5-3.5 Procedures Date Code Description Status 09/26/2019 56371 EKG Tracing & Interpretation Completed 09/20/2019 09408 Holter Monitor Review (24 hr)dr review & interp only Completed 09/19/2019 44228 ECG Monitor/Recording W/Visual Superimposition Scanning Completed 09/19/2019 48480 ECG Monitor/Recording W/Visual Superimposition Scanning Completed 09/08/2019 04376 EEG Recording Awake & Drowsy Completed 08/15/2019 85424 Nerve Conduction 03-04 Studies Completed 08/15/2019 12857 Needle Electromyography Complete, Five Or More Muscles Completed Studied 07/10/2019 92132 EEG Recording Awake & Drowsy Completed 05/31/2019 41925 EEG Recording Awake & Drowsy Completed 06/24/2010 90085563 Mammogram Completed Medical Devices Description No Information Available Encounters Type Date Location Provider Dx Diagnosis Office Visit 10/13/2019 [facility] Internal Joan Clay, M25.511 Pain in right 11:40a Medicine - [address] DO shoulder Office Visit 09/26/2019 [facility] Milton Huynh I73.00 Raynaud's 2:00p Tima Cai syndrome without gangrene R55 Syncope and collapse Z72.0 Tobacco use R00.2 Palpitations Office Visit 09/15/2019 [facility] Leandro Gagnon, G40.209 Local-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 10: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 epi w cmplx prt seiz,not ntrct,w/o stat epi Z79.899 Other residential (current) drug therapy Office Visit 09/07/2019 2:00p [facility] Internal Vanessa White, R55 Syncope and Medicine - Ccmob Tima, FACP collapse G40.89 Other seizures G89.4 Chronic pain syndrome F17.210 Nicotine dependence, cigarettes, uncomplicated Office Visit 09/06/2019 2:00p [facility] Galeas Coch, 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 R68.82 Decreased libido N92.6 Irregular menstruation, unspecified R53.83 Other fatigue Office Visit 09/01/2019 11:30a [facility] Leandro Gagnon, R55 Syncope and FACILITIES SUPERVISOR collapse G43.009 Migraine w/o aura, not intractable, w/o status migrainosus R53.83 Other fatigue Office Visit 08/29/2019 Tj Cuevas, S46.011D Strain of 1:15p Orthopedics at MD maria/tend the [place] rotator cuff of right shoulder, subs Office Visit 08/22/2019 [facility] Internal Bagum Gilson G89.4 Chronic pain 3:00p Medicine - Lorraine Prieto, FACILITIES SUPERVISOR syndrome Office Visit 08/22/2019 Tj Cuevas, S46.011D Strain of 1:15p Orthopedics at [facility] maria/tend the [place] rotator cuff of right shoulder, subs G56.21 Lesion of ulnar nerve, right upper limb G56.22 Lesion of ulnar nerve, left upper limb Office Visit 08/07/2019 [facility] Giana M75.41 Impingement 1:30p Orthopedics at Tima Don syndrome of right [place] shoulder S46.011A Strain of musc/tend the rotator cuff of right shoulder, init M25.511 Pain in right shoulder Office Visit 07/24/2019 2:45p [facility] Tory Weathers M25.511 Pain in right at [facility] shoulder S46.011A Strain of musc/tend the rotator cuff of right shoulder, init M75.41 Impingement syndrome of right shoulder Office Visit 07/21/2019 [facility] Le[facility] Gagnon, G43.009 Migraine w/o 11:00a Clinic FACILITIES SUPERVISOR aura, not intractable, w/o status migrainosus R55 Syncope and collapse F07.81 Postconcussional syndrome Office Visit 07/19/2019 11:15a [facility] Damon S46.011D Strain of at MD candace Flower/tend the rotator cuff of right shoulder, subs G56.01 Carpal tunnel syndrome, right upper limb G56.21 Lesion of ulnar nerve, right upper limb Office Visit 06/28/2019 [facility] Le[facility] Gagnon, R56.9 Unspecified 3:00p Clinic FACILITIES SUPERVISOR convulsions G43.009 Migraine w/o aura, not intractable, w/o status migrainosus M54.2 Cervicalgia Office Visit 05/16/2019 2:40p [facility] Internal Maritza G40.89 Other seizures Medicine - Lorraine Del Cid M.D. D35.2 Benign neoplasm of pituitary gland Z72.0 Tobacco use G50.1 Atypical facial pain Assessments Date Code Description Provider 10/13/2019 M25.511 Pain in right shoulder Joan Clay, DO 10/12/2019 R55 Syncope and collapse Zarina Rubio, N.P. 10/12/2019 Z72.0 Tobacco use aZrina Rubio, N.P. 10/12/2019 R00.2 Palpitations Zarina Rubio, [...] R55 Syncope and collapse Benito Guido, DO [facility] 09/19/2019 R55 Syncope and collapse Nurse Visit cc 09/15/2019 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, not intractable, without status epilepticus 09/15/2019 Z79.899 Other corrugated box machine operator (current) drug Leandro Gagnon NP therapy 09/08/2019 G40.209 Localization-related (focal) Kamajlit Florentino M.D. (partial) symptomatic epilepsy and epileptic [...] subsequent encounter 08/22/2019 G89.4 Chronic pain syndrome Bagum Gilson Prieto, FACILITIES SUPERVISOR 08/22/2019 S46.011D Strain of muscle(s) and tendon(s) [...] G43.009 Migraine without aura, not Leandro Gagnon, FACILITIES SUPERVISOR intractable, without status migrainosus 07/21/2019 R55 Syncope and collapse Leandrofarooq Gagnon, FACILITIES SUPERVISOR 07/21/2019 F07.81 Postconcussional syndrome Leandro Gagnon, FACILITIES SUPERVISOR 07/19/2019 S46.011D Strain of muscle(s) and [...] G43.009 Migraine without aura, not Leandro Gagnon, FACILITIES SUPERVISOR intractable, without status migrainosus 06/28/2019 M54.2 [...] 10:00 am - Darren Clemens MD at [facility] Internal Medicine - Suite 10/31/2019 11:00 am - Aron Holland M.D. at [facility]10/20/2019 11:30 am - Leandro Gagnon NP at [facility]/08/2019 - Zarina Rubio N.P.R55 Syncope and collapseFollow up:r/s echo for 11/2019 [facility] 1 month Zarina BALAJI JFM 04/2020Recommendations:Francis Flower.Z72.0 Tobacco useR00.2 Palpitations Functional Status Description No Information Available Mental Status Description No Information Available Referrals Refer to Dr Reason for Referral Status Appt Date Julienne Crews MD raynaud's, Sent 10/31/2019 [address], [place] [address] [phone] Darren Clemens MD Needs to establish care with a PCP to be cleared Scheduled for upcoming dental and shoulder surgery. [address] [place] [place] [address] [phone] Milton Cai MD Previous patient; describes syncopal events, Sent lightheadedness, dizziness [address] [place] [address] [phone] Adal Mendieta MD Patient Notified 09/06/[address] [place] [address] [phone] Nelson Schmid M.D. Sent 06/28/2019 [address] [place] [place] [address] [phone]
--- OUTSIDE RECORDS SUMMARY | 2019-10-25 11:49 | XMS REPORT | Continuity of Care Document ---
:1985 External Reference #:[id number] Author Name Joan Clay DO (transmitted by agent of provider Cristy Gabriel) Address [address] [place] [id number] Care Team Providers Name Role Phone Destin Mayer M.D. - Family Medicine Care Team Information [employer] Jimmy Becker DO - Interventional Care Team Information [employer] [phone] Pain Medicine [facility] [place] [facility] - [place] Disorder Care Team Information [employer] [phone] Diagnostic Dwayne Fermin MD - Orthopaedic Care Team Information [employer] [phone] Surgery Milton Moreno MD - Otolaryngology Care Team Information [employer] Mars Snyder MD - Interventional Care Team Information [employer] [phone] Pain Medicine Belgica Cueto MD - Endocrinology, Care Team Information [employer] Machine [phone] Diabetes & Metabolism Kamaljit Soria M.D. - Neurological Care Team Information [employer] Surgery Adal Mendieta MD - Endocrinology, Care Team Information [employer] Diabetes & Metabolism Nelson Schmid M.D. - Neurology Care Team Information [employer] Darren Clemens MD - Hospitalist Care Team Information [employer] Machine [phone] Problems Active Problems Provider Date Congenital spondylolysis [...] Leatha Jenkins, 2012 fracture, kyphosis Tima [facility] [place] E888.9 Zofran take 1 [...] directed 1unalfred Faria 07/24/2019 - 5mg (21) Moses Kapoor.D. 08/22/2019 Amitriptyline HCL take 4 tabs by [...] # [id number] Given 05/04/2013 Flu Vaccine NOS [id number] Given 10/27/2012 Tdap - Tetanus/Diptheria/Acellular Pertussis [id number] Vital Signs Date Vital Result Comment 10/17/2019 [...] Result H/L Range Note Laboratory test 09/25/2019 [facility] Vitamin B12 <pending> finding [address] [place] [address] [phone] CBC Auto Diff 09/08/2019 [facility] White Blood 5.4 10^3/uL Normal 3.5-10.[address] [place] [address] [phone] Red Blood Count 4.56 10^6/uL Normal 3.70-4.87 [...] Blood Cells % 0.1 Comp Metabolic 09/08/2019 [facility] Sodium 135 mmol/L Normal 135-[address] [place] [address] [phone] Potassium 4.1 mmol/L Normal 3.5-5.0 Chloride 104 [...] Egfr 100.0 >60 1 Laboratory test 09/08/2019 [facility] Hemoglobin A1c 5.2 % Normal 4.0-5.6 2 finding 101 (Glyco HGB) [place], [place] [id number] [phone] T3 Total 102 ng/dL Normal 87-178 Thyroxine 6.59 g/dL Normal 6.09-12.23 Thyroid 09/08/2019 [facility] Thyroid 2.06 Normal <9 Autoantibodies 101 Peroxidase IU/[place] [address] Antibodies [phone] Thyroglobulin Antibody II 0.0 IU/mL <4.0 Tick-Borne 09/08/2019 [facility] Anaplasma <1:64 <1:64 3 Disease AB phagocytophilium [place] [address] [phone] Babesia microti IgG Ab, S <1:64 titer <1:64 4 Ehrlichia chaffeensis IgG AB <1:64 titer <1:64 5 Lyme Disease Serology Negative Negative 6 Laboratory test 09/08/2019 [facility] Erythrocyte Sed 5 mm/Hr Normal 0-[address] [place] [address] [phone] C Reactive Protein 4.18 mg/L Normal <8.01 Nuclear AB (Carmita) By Ifa Igg <1:80 (Negative) 7 FSH And LH 09/08/2019 [facility] FSH (Follicle Stim 6.4 mIU/mL [address] DR[address] Hormone) [place] [address] [phone] LH (Lutenizing Hormone) 5.4 mIU/mL 9 Laboratory test finding 09/08/2019 [facility] Estradiol 45 pg/ mL [address] [place] [address] [phone] Dhea Sulfate 60 g/dL 45-295 11 TSH (Thyroid Stim Horm) 1.30 mcIU/mL Normal 0.34-5.60 Testosterone Total < 10.00 ng/dL Normal 8-60 Acth 17 pg/mL 12 Insulin-Like Growth 09/08/2019 [facility] Insulin like 166 ng/ mL 59-[address] [address] I [phone] Igf1 Z-score 0.52 SD 13 Laboratory test 09/08/2019 [facility] Prolactin 24.5 ng/mL Normal 1.0-25.0 finding [address] [place] [address] [phone] Free T4 (Free Thyroxine) 0.87 ng/dL Normal 0.61-1.12 Sex Hormone Binding Globulin 34 nmol/L 14 Urinalysis Profile 06/11/2019 [facility] Urine Color Yellow [address] [place] [address] [phone] Urine Appearance Clear Urine Specific [place] 1.011 Normal 1.010-1.030 Urine pH 5.0 Normal 5-9 Urine Urobilinogen Negative Negative Urine Ketones Negative Negative Urine Protein Negative Negative Urine Leukocytes Negative Negative Urine Blood Negative Negative Urine Nitrite Negative Negative Urine Bilirubin Negative Negative Urine Glucose Negative Negative Laboratory test 06/11/2019 [facility] Magnesium 1.8 mg/dL Low 1.9-2.7 finding [address] [place] [address] [phone] Comp Metabolic 06/11/2019 [facility] Sodium 134 mmol/L Low 135 -145 Panel [address] [place] [address] [phone] Potassium 3.5 mmol/L Normal 3.5-5.0 Chloride 102 [...] Egfr 88.4 >60 15 Laboratory test 06/11/2019 [facility] Lactic Acid 0.9 mmol/L Normal 0.5-2.0 [address] [place] [address] [phone] CBC Auto Diff 06/11/2019 [facility] White Blood 9.6 Normal 3.5 -10.[address] Count 10^3/[place] [address] [phone] Red Blood Count 4.17 10^6/uL Normal 3.70-4.87 [...] Red Blood Cells % 0.0 Inr/Protime 06/11/2019 [facility] Inr 1.06 Normal 0.82-1.[address] [place] [address] [phone] Laboratory test 05/16/2019 [facility] Prolactin 19.7 Normal 1.0-25.[address] ng/[place] [address] [phone] TSH (Thyroid Stim Horm) 1.36 mcIU/mL Normal [...] in selective patients <6.0%. Please refer to [place] [employer] diabetic care guidelines for further information. 3 ADDITIONAL INFORMATION This test was developed using an analyte specific reagent. Its performance characteristics were determined by [facility] in a manner consistent with CLIA requirements. This test has not been cleared or approved by the U.S. Food and Drug Administration. 4 ADDITIONAL INFORMATION This test was developed using an analyte specific reagent. Its performance characteristics were determined by [facility] in a manner consistent with CLIA requirements. This test has not been cleared or approved by the U.S. Food and Drug Administration. 5 ADDITIONAL INFORMATION This test was developed using an analyte specific reagent. Its performance characteristics were determined by [facility] in a manner consistent with CLIA requirements. [...] tested in 2-4 weeks. Test Performed by: [facility] [place] [place] [address] Prop And Scenery Maker: Robert Marshall M.D. Ph.D.; CLIA# [id number] 7 <1:80 (Negative) REFERENCE VALUE <1:80 (Negative) Test Performed by: [facility] [place] [place] [address] Prop And Scenery Maker: Robert Marshall M.D. Ph.D.; CLIA# [id number] 8 Normally menstruating females - Follicular phase [...] 15-115 11 Test Performed by: [facility] [place] [place] [address] Prop And Scenery Maker: Robert Marshall M.D. Ph.D.; CLIA# [id number] 12 REFERENCE VALUE 7.2-63 (a.m. collection) Test Performed by: [place] [address] Prop And Scenery Maker: Robert Marshall M.D. Ph.D.; CLIA# [id number] 13 REFERENCE VALUE -2.0 - +2.0 ADDITIONAL INFORMATION This test was developed and its performance characteristics determined by [facility] in a manner consistent with CLIA requirements. This test has not been cleared or approved by the U.S. Food and Drug Administration. Test Performed by: [facility] [place] [place] [address] Prop And Scenery Maker: Robert Marshall M.D. Ph.D.; CLIA# [id number] 14 REFERENCE VALUE 18-144 (non-) Test Performed by: [facility] [place] [address] Prop And Scenery Maker: Robert Marshall M.D. Ph.D.; CLIA# [id number] 15 Because ethnic data is not always [...] 5 Kidney failure <15 (or dialysis) 16 [facility] Severe Sepsis and Septic Shock Management Bundle Measure requires all lactic acids initially measuring >2.0 mmol/L be repeated. 17 Standard intensity warfarin therapeutic range: 2.0-3.0 High intensity warfarin therapeutic range: 2.5-3.5 Procedures Date Code Description Status 09/26/2019 37418 EKG Tracing & Interpretation Completed 09/20/2019 89496 Holter Monitor Review (24 hr)dr review & interp only Completed 09/19/2019 69701 ECG Monitor/Recording W/Visual Superimposition Scanning Completed 09/19/2019 10213 ECG Monitor/Recording W/Visual Superimposition Scanning Completed 09/08/2019 40519 EEG Recording Awake & Drowsy Completed 08/15/2019 31803 Nerve Conduction 03-04 Studies Completed 08/15/2019 19450 Needle Electromyography Complete, Five Or More Muscles Completed Studied 07/10/2019 83117 EEG Recording Awake & Drowsy Completed 05/31/2019 38707 EEG Recording Awake & Drowsy Completed 06/24/2010 51482411 Mammogram Completed Medical Devices Description No Information Available Encounters Type Date Location Provider Dx Diagnosis Office Visit 10/17/2019 [facility] Damon Cuevas, S53.401A Unspecified sprain 2:00p at [place] MD of right elbow, initial encounter S63.591A Other specified sprain of right wrist, initial encounter S46.011D Strain of musc/tend the rotator cuff of right shoulder, subs Office Visit 10/13/2019 11:40a [facility] Internal Joan M25.511 Pain in right Medicine - [address], DO shoulder R Office Visit 10/12/2019 2:00p [facility] Zarina SRnoa R55 Syncope and Foster, N.P. collapse Z72.0 Tobacco use R00.2 Palpitations Office Visit 09/26/2019 2:00p [facility] Milton Huynh I73.00 Raynaud's Tima Cai syndrome without gangrene R55 Syncope and collapse Z72.0 Tobacco use R00.2 Palpitations Office Visit 09/15/2019 [facility] Leandro Gagnon, G40.209 Local-rel 10:00a Clinic [employer] symptc epi w cmplx prt seiz,not ntrct,w/o stat epi Z79.899 Other retirement (current) drug therapy Office Visit 09/07/2019 2:00p [facility] Internal Vanessa White, R55 Syncope and Medicine - Ramonob Tima, FACP collapse G40.89 Other seizures G89.4 Chronic pain syndrome F17.210 Nicotine dependence, cigarettes, uncomplicated Office Visit 09/06/2019 2:00p [facility] Galeas Coch, 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 R68.82 Decreased libido N92.6 Irregular menstruation, unspecified R53.83 Other fatigue Office Visit 09/01/2019 11:30a [facility] Leandro Gagnon, R55 Syncope and [employer] collapse G43.009 Migraine w/o aura, not intractable, w/o status migrainosus R53.83 Other fatigue Office Visit 08/29/2019 1:15p [facility] Damon S46.011D Strain of at Lidia Cuevas MD musc/tend the rotator cuff of right shoulder, subs Office Visit 08/22/2019 1:15p [facility] Damon S46.011D Strain of at Lidia Cuevas MD musc/tend the rotator cuff of right shoulder, subs G56.21 Lesion of ulnar nerve, right upper limb G56.22 Lesion of ulnar nerve, left upper limb Office Visit 08/22/2019 [facility] Internal Bagum Gilson G89.4 Chronic pain 3:00p Medicine - Ccmob Ida, [employer] syndrome Office Visit 08/07/2019 [place] Giana M75.41 Impingement 1:30p Orthopedics at [facility] Don syndrome of right [place] shoulder S46.011A Strain of musc/tend the rotator cuff of right shoulder, init M25.511 Pain in right shoulder Office Visit 07/24/2019 2:45p [facility] Tory Weathers, M25.511 Pain in right at [facility]- shoulder S46.011A Strain of musc/tend the rotator cuff of right shoulder, init M75.41 Impingement syndrome of right shoulder Office Visit 07/21/2019 [facility] Le[facility] Gagnon, G43.009 Migraine w/o 11:00a Clinic [employer] aura, not intractable, w/o status migrainosus R55 Syncope and collapse F07.81 Postconcussional syndrome Office Visit 07/19/2019 11:15a [facility] Damon S46.011D Strain of at Lidia Cuevas MD musc/tend the rotator cuff of right shoulder, subs G56.01 Carpal tunnel syndrome, right upper limb G56.21 Lesion of ulnar nerve, right upper limb Office Visit 06/28/2019 [facility] Le[facility] Gagnon, R56.9 Unspecified 3:00p Clinic [employer] convulsions G43.009 Migraine w/o aura, not intractable, w/o status migrainosus M54.2 Cervicalgia Office Visit 05/16/2019 2:40p [facility] Internal Maritza G40.89 Other seizures Medicine - [...] Rubio, N.P. 10/12/2019 Z72.0 Tobacco use Zarina uRbio, N.P. 10/12/2019 R00.2 Palpitations Zarina Rubio, N.P. [...] intractable, without status epilepticus 09/15/2019 Z79.899 Other retirement (current) drug Leandro Gagnon NP therapy 09/08/2019 [...] encounter 08/22/2019 G89.4 Chronic pain syndrome Edd Reevesvivian, [employer] 08/22/2019 S46.011D Strain of muscle(s) and [...] M.D. at [facility]10/20/2019 11:30 am - Leandro Gagnon NP at [facility]10/17/2019 - Damon Cuevas MDS53.401A Unspecified sprain of right elbow, initial encounterNew Therapy:Physical StheglbP89.591A Other specified sprain of right wrist, initial yscrevzwnF53.011D Strain of muscle(s) and tendon(s) of the rotator cuff of right shoulder, subsequent encounter Functional Status Description No Information Available Mental Status Description No Information Available Referrals Refer to Reason for Referral Status Appt Date Julienne Crews MD raynaud's, Sent 10/31/2019 [address] [place] [address] [phone] Darren Clemens MD Needs to establish care with a PCP to be cleared Scheduled for upcoming dental and shoulder surgery. [address] [place] [address] [phone] Milton Cai MD Previous patient; describes syncopal events, Sent lightheadedness, dizziness [address] [place] [address] [phone] Adal Mendieta MD Patient Notified 09/06/[address] [place] [address] [phone] Nelson Schmid M.D. Sent [facility]/28/2019 [address] [facility] [place] [address] [phone]
[2019-10-25] MEDS ORDERED: Lidocaine 1% MPF ** 5 ML VIAL INJ ONE (11:58)
[2019-10-25 12:11] VITALS: BP 113/67
--- NOTE | 2019-10-25 12:16 | UC ---
Complaint Female HPI - HPI Summary HPI Summary: 34 y/o female presents to the urgent care c/o pelvic pain for several months and requesting a Rocephin IM inj that her OPERATIVE SUPERVISOR ordered for her PID on 10/22. Pt states she has never had Hx of STD's, but her OPERATIVE SUPERVISOR Dx her with PID. Pain today is 4/10, but she took Tylenol PO about 2 hrs ago which helps. Pain is worse w/ intercourse. She was Rx Azithromycin PO and advised to come here for 250mg PO of Rocephin. Pt denies fever, cough, WILKINSON, SOB, chest pain, N/V/D, urinary symptoms, vaginal discharge or recent contact with w/ someone with COVID 19. - History Of Current Complaint Chief Complaint: UCAbdominalPain Stated Complaint: ABDOMINAL PAIN Time Seen by Provider: 10/25/19 11:55 Hx Obtained From: Patient Hx Last Menstrual Period: just ended ?: No Onset/Duration: Gradual Onset, Lasting Weeks - several months w/ pelvic pain, Still Present Timing: Constant Severity Initially: Mild Severity Currently: Mild Pain Intensity: 4 Pain Scale Used: 0-10 Numeric Character: Cramping Aggravating Factor(s): [place] Alleviating Factor(s): Meds - Tylenol PO and Ibuprofen PO. Last dose was Tylenol PO about 2 hrs ago Associated Signs And Symptoms: Negative: Fever, Back Pain, Vaginal Bleeding/ Discharge, Vaginal Discharge, Nausea, Vomiting(# Of Episodes =) Related Hx: Similar Episode/Dx as: - Recently Dx w/ PID - Risk Factors Ectopic Risk Factor: Negative Ovarian Torsion Risk Factor: Negative - Allergies/Home Medications Allergies/Adverse Reactions: Allergies Allergy/AdvReac Type Severity Reaction Status Date / Time propoxyphene Allergy Intermediate skin rash Verified 09/23/19 13:45 [From Darvocet-N] ampicillin Allergy Anaphylatic Verified 09/23/19 13:45 Shock cephalexin [From Keflex] AdvReac Severe Unknown Verified 09/23/19 13:45 Reaction Details clarithromycin [From Biaxin] AdvReac Severe Nausea And Verified 09/23/19 13:45 Vomiting cyclobenzaprine AdvReac Severe See Comment Verified 09/23/19 13:45 [From Flexeril] divalproex sodium AdvReac Severe Abdominal Verified 09/23/19 13:45 [From Depakote] Pain doxycycline AdvReac Severe Rash Verified 09/23/19 13:45 naproxen AdvReac Severe Abdominal Verified 09/23/19 13:45 Pain trimethoprim [From Bactrim] AdvReac Severe Nausea Verified 09/23/19 13:45 metaxalone [From Skelaxin] AdvReac Intermediate See Comment Verified 09/23/19 13 :45 morphine AdvReac Intermediate Swelling Verified 09/23/19 13:45 Of Face,Lips,& Throat miracle whip AdvReac Severe n/v, Uncoded 09/23/19 13:45 itchy. hives ragu spaghetti sauce AdvReac Severe n/v, Uncoded 09/23/19 13:45 hives, itchiness Home Medications: Home Medications Ibuprofen TAB* [Advil TAB*] 800 mg PO Q6H PRN 07/29/19 [History Confirmed ] SUMAtriptan succinate [Imitrex] 100 mg PO Q2H PRN MDD 4 tabs 07/29/19 [History Confirmed 10/25/19] Acetaminophen TAB* [Tylenol TAB*] 1,500 mg PO Q4H PRN 08/07/19 [History Confirmed 10/25/19] Cbd Cream 1 applic TOPICAL DAILY PRN 08/07/19 [History Confirmed 10/25/19] Menthol/Aloe Vera Extract [Icy Hot 16% Power Gel] 1 applic TOPICAL DAILY PRN [History Confirmed 10/25/19] diphenhydrAMINE HCl [Benadryl Allergy] 1 tab PO ONCE PRN 08/07/19 [History Confirmed 10/25/19] Acetaminop/Codeine 30 MG TAB* [Tylenol/Codeine 30 MG TAB*] 1 tab PO Q6H PRN #12 tab MDD 4 08/19/19 [Rx Confirmed 10/25/19] Lidocaine 2% VISCOUS* [Xylocaine 2% Viscous*] 15 ml SWISH SPIT Q6H PRN #1 btl [Rx Confirmed 10/25/19] Ondansetron ODT TAB* [Zofran 4 MG Odt TAB*] 4 mg PO Q6H PRN #12 tab.odt MDD 4 [Rx Confirmed 10/25/19] Diazepam TAB(*) [Valium TAB(*)] 5 mg PO BEDTIME 10/25/19 [History Confirmed ] lamoTRIgine TAB(*) [LaMICtal TAB(*)] 100 mg PO BID 10/25/19 [History Confirmed 10/25/19] PMH/Surg Hx/FS Hx/Imm Hx Previously Healthy: Yes Other GI/ History: PID Other Neurological History: Pituitary adenoma Other History Of: Negative For: Anticoagulant Therapy - Surgical History Surgical History: Yes Surgery Procedure, Year, and Place: Right wrist surgery/RIGHT ELBOW 05/17/17. 2018 RIGHT SHOULDER SURGERYx2. tonsillectomy 1989 [place]. right ovarian cyst removed 2006 [facility] [place]. cholecystectomy 2006 [facility] [place]. D&C 2006 - [facility] [place]. teeth extraction ( one in office and one at [facility] [place] ear biopsy - 2014 [facility] [place]. ENDOSCOPIES/COLONOSCOPIES - Family History Known Family History: Positive: Cardiac Disease - mom, Diabetes - Social History Occupation: Employed Full-time Lives: With Family Alcohol Use: None Substance Use Type: None Substance Use Comment - Amount & Last Used: hx cannabis use Smoking Status (MU): Light Every Day Tobacco Smoker Type: Cigarettes Amount Used/How Often: 1/2 PPD Length of Time of Smoking/Using Tobacco: since 17yo Have You Smoked in the Last Year: Yes When Did the Patient Quit Smoking/Using Tobacco: 1 MONTH AGO Household Exposure Type: Cigarettes - Immunization History Most Recent Influenza Vaccination: none Most Recent Tetanus Shot: unsure Most Recent Pneumonia Vaccination: none Review of Systems All Other Systems Reviewed And Are Negative: Yes Constitutional: Positive: Negative Skin: Positive: Negative Eyes: Positive: Negative ENT: Positive: Negative Respiratory: Positive: Negative Cardiovascular: Positive: Negative Gastrointestinal: Positive: Negative Genitourinary: Positive: Other - pelvic pain Motor: Positive: Negative Neurovascular: Positive: Negative Musculoskeletal: Positive: Negative Neurological/Mental Status: Positive: Negative Psychological: Positive: Negative Is Patient Immunocompromised?: No Physical Exam - Summary Physical Exam Summary: VITAL SIGNS: Reviewed. GENERAL: Patient is a well developed and nourished female who is sitting comfortable in the examining table. Patient is not in any acute respiratory distress. HEAD AND FACE: No signs of trauma. No ecchymosis, hematomas or skull depressions. No sinus tenderness. EYES: PERRLA, EOMI x 2, No injected conjunctiva, clear watery eyes, no nystagmus. No photophobia. EARS: Hearing grossly intact. Ear canals and tympanic membranes are within normal limits. MOUTH: pharynx with no erythema, no exudates,no palatal petechiae. no B/L tonsillar enlargement Uvula in midline. NECK: Supple, trachea is midline, no lymphadenopathy, no JVD, no carotid bruit, no c-spine tenderness, neck with full ROM. CHEST: Symmetric, no tenderness at palpation LUNGS: Clear to auscultation bilaterally. No wheezing or crackles. CVS: Regular rate and rhythm, S1 and S2 present, no murmurs or gallops appreciated. Abdomen Description: Positive: Nontender, Abd: Flat with no distention. No surface trauma, scars, incisions. hyperactive bowel sounds present in all four quadrants. No tenderness, guarding, rigidity to palpation. No masses palpated, no pulsation in epigastric area. No organomegaly. Negative [place] signs. No periumbilical tenderness. No rebound in the lower quadrants. NT over [place] point. B/L suprapubic tenderness with no distension. Good femoral pulses bilaterally. No hernia noted. No CVAT bilaterally. BACK:no scoliosis or lesions, non tender to palpation, No B/L CVA tenderness EXTREMITIES: FROM in all major joints, no edema, no cyanosis or clubbing. NEURO: Alert and oriented x 3. No acute neurological deficits. Speech is normal and follows commands. SKIN: Dry and warm Triage Information Reviewed: Yes Complaint Female Dx - Course Course Of Treatment: 34 y/o female presents to the urgent care c/o pelvic pain for several months and requesting a Rocephin IM inj that her OPERATIVE SUPERVISOR ordered for her PID on 10/22. Pt states she has never had Hx of STD's, but her OPERATIVE SUPERVISOR Dx her with PID. Pain today is 4/10, but she took Tylenol PO about 2 hrs ago which helps. Pain is worse w/ intercourse. She was Rx Azithromycin PO and advised to come here for 250mg PO of Rocephin. Pt denies fever, cough, WILKINSON, SOB, chest pain, N/V/D, urinary symptoms, vaginal discharge or recent contact with w/ someone with COVID 19. Pt is hemodynamically stable, A&OX3, Vitals: WNL. PE: WNL execp w/ mild tenderness over the pelvic area on deep palpation. Pt is allergic to Keflex w/ anaphylactic reaction. and Rocephin is a cephalosporin medication. I called DR Perez's office and he was out for lunch. Pt was explained we needed to wait for him to call back. Pt decided to leave w/o saying anythin. Then nurse called her on her cell phone and explained we were still waiting for Dr Perez to call back, but call got interrupted. DR Perez calll back and recommended to have patient to continue taking the Azithromycin PO and to f/u w / him so he can figure out what treatment he can give her for the PID. Nurse Jesus tried to call patient several times on her cell phone w/o any success. - Differential Dx/Diagnosis Differential Diagnosis/HQI/PQRI: Appendicitis, Cervicitis, Endometriosis, Ovarian Cyst, Ovarian Torsion, Pelvic Inflammatory Disease, , Renal Colic, Sexually Transmitted Disease, Urinary Tract Infection Provider Diagnosis: Acute pelvic inflammatory disease (PID) Discharge ED - Sign-Out/Discharge Documenting (check all that apply): Patient Departure - patient left w/o saying anything and before being diascharge All imaging exams completed and their final reports reviewed: No Studies - Discharge Plan Condition: Stable Disposition: HOME Patient Education Materials: Pelvic Inflammatory Disease (ED) Referrals: Darren Clemens MD [Primary Care Provider] - 1 Week Simón Perez MD [Medical Doctor] - 3 Days - Billing Disposition and Condition Condition: STABLE Disposition: Home - Attestation Statements Provider Attestation: This patient was not seen by me. I was available for consult. Chart reviewed. AMBER
== END 2019-10-25 13:10 | disposition home or self-care (01) ==
LOC: UCEAST 11:42
DX: N73.0 Acute parametritis and pelvic cellulitis (principal); Z88.6 Allergy status to analgesic agent; Z88.1 Allergy status to other antibiotic agents; Z88.5 Allergy status to narcotic agent; Z88.0 Allergy status to penicillin; Z88.8 Allergy status to other drugs, medicaments and biological substances; Z91.018 Allergy to other foods; Z87.891 Personal history of nicotine dependence
CPT/HCPCS: 99212; G0463

== ENCOUNTER 2019-11-02 12:43 | Emergency (ER) | payer OTHER ==
--- NOTE | 2019-11-02 12:53 | ED ---
Complex/Multi-Sys Presentation - HPI Summary HPI Summary: 34 year old F presenting to [facility] with a chief complaint of right lower quadrant pain since this morning. Patient reports vomiting secondary to pain. She also reports chronic back pain and that her right knee has been hurting for a few days. The patient rates the pain 10/10 in severity. Symptoms aggravated by bending over. Symptoms alleviated by nothing. Patient reports that she was advised by her PCP yesterday to come to the emergency department for further evaluation. Patient denies any fever, chills, erythema of eyes, sore throat, chest pain, shortness of breath, cough, dysuria, hematuria, myalgia, edema, rash , or dizziness. She still has her appendix but was told that she had a leaky appendix years ago. Medication list reviewed. Allergy list reviewed. - History Of Current Complaint Chief Complaint: EDAbdPain Time Seen by Provider: 11/02/19 12:49 Hx Obtained From: Patient Onset/Duration: Lasting Hours, Still Present Timing: Constant Severity Currently: Severe Aggravating Factor(s): Bending over Alleviating Factor(s): None Associated Signs And Symptoms: Positive: Vomiting, Abdominal Pain, Back Pain, Other - Right knee pain. Negative: Dizziness, SOB, Cough, Chest Pain, Edema, Dysuria, Fever - Allergies/Home Medications Allergies/Adverse Reactions: Allergies Allergy/AdvReac Type Severity Reaction Status Date / Time propoxyphene Allergy Intermediate skin rash Verified 11/02/19 12:47 [From Darvocet-N] ampicillin Allergy Anaphylatic Verified 11/02/19 12:47 Shock cephalexin [From Keflex] AdvReac Severe Unknown Verified 11/02/19 12:47 Reaction Details clarithromycin [From Biaxin] AdvReac Severe Nausea And Verified 11/02/19 12:47 Vomiting cyclobenzaprine AdvReac Severe See Comment Verified 11/02/19 12:47 [From Flexeril] divalproex sodium AdvReac Severe Abdominal Verified 11/02/19 12:47 [From Depakote] Pain doxycycline AdvReac Severe Rash Verified 11/02/19 12:47 naproxen AdvReac Severe Abdominal Verified 11/02/19 12:47 Pain trimethoprim [From Bactrim] AdvReac Severe Nausea Verified 11/02/19 12:47 metaxalone [From Skelaxin] AdvReac Intermediate See Comment Verified 11/02/19 12 :47 morphine AdvReac Intermediate Swelling Verified 11/02/19 12:47 Of Face,Lips,& Throat miracle whip AdvReac Severe n/v, Uncoded 11/02/19 12:47 itchy. hives ragu spaghetti sauce AdvReac Severe n/v, Uncoded 11/02/19 12:47 hives, itchiness Home Medications: Home Medications SUMAtriptan succinate [Imitrex] 100 mg PO ONCE PRN 07/29/19 [History Confirmed 11/02/19] diphenhydrAMINE HCl [Benadryl Allergy] 25 - 50 mg PO DAILY PRN 08/07/19 [ History Confirmed 11/02/19] Diazepam TAB(*) [Valium TAB(*)] 5 mg PO BEDTIME PRN 10/25/19 [History Confirmed 11/02/19] lamoTRIgine TAB(*) [LaMICtal TAB(*)] 100 mg PO BID 10/25/19 [History Confirmed 11/02/19] Acetaminophen [Acetaminophen Extra Strength] 500 mg PO .2-3X/DAY PRN 11/02/19 [ History Confirmed 11/02/19] Docusate CAP* [Colace Cap*] 100 mg PO BID #28 cap 11/02/19 [Rx] Fludrocortisone Acetate TAB* [Florinef TAB*] 0.1 mg PO DAILY 11/02/19 [History Confirmed 11/02/19] Omeprazole (Nf) [Prilosec (NF)] 40 mg PO DAILY 11/02/19 [History Confirmed 11/01] Ondansetron ODT TAB* [Zofran 4 MG Odt TAB*] 4 mg PO Q6H PRN 11/02/19 [History Confirmed 11/02/19] hydrOXYzine HCL TAB* [Atarax TAB 50 MG *] 50 mg PO BID PRN 11/02/19 [History Confirmed 11/02/19] oxyCODONE/Acetamin 5/325 MG* [Percocet 5/325 TAB*] 1 tab PO Q6H PRN #15 tab MDD 4 11/02/19 [Rx] PMH/Surg Hx/FS Hx/Imm Hx Endocrine/Hematology History: Denies: Hx Anticoagulant Therapy, Hx Blood Disorders, Hx Diabetes Cardiovascular History: Reports: Hx Syncope, Other Cardiovascular Problems/ Disorders - low blood pressure Denies: Hx Hypertension, Hx Pacemaker/ICD Respiratory History: Reports: Other Respiratory Problems/Disorders - insomnia Denies: Hx Asthma, Hx Chronic Obstructive Pulmonary Disease (COPD) GI History: Reports: Hx Gastroesophageal Reflux Disease - on med, Hx Irritable Bowel, Hx Ulcer - stomach ulcers and an ulcer in esophagus, Other GI Disorders - DIVERTICULITIS-? History: Reports: Other Problems/Disorders - polycystic ovarian syndrome Denies: Hx Dialysis, Hx Renal Disease Musculoskeletal History: Reports: Hx Arthritis, Hx Back Problems, Hx Orthopedic Injury, Hx Osteoporosis - spondylolisthesis, Hx Tendonitis, Other Musculoskeletal History - reports multiple fractures in past, chronic right arm pain and injury/ulnar Denies: Hx Rheumatoid Arthritis Sensory History: Denies: Hx Cataracts, Hx Contacts or Glasses, Hx Legally Blind, Hx Deafness, Hx Hearing Aid Opthamlomology History: Denies: Hx Cataracts, Hx Contacts or Glasses, Hx Legally Blind Neurological History: Reports: Hx Migraine - on med prn, Hx Nerve Disease - fibromyalgia, Hx Spinal Cord Injury - fx of L4, L5 S1, Other Neuro Impairments/ Disorders - reports she has a pituitary adenoma Psychiatric History: Reports: Hx Anxiety - NO MEDICATION FOR AT THIS TIME, Hx Depression - NO MEDICATION FOR AT THIS TIME, Hx Post Traumatic Stress Disorder, Hx Community Mental Health Tx Denies: Hx Attention Deficit Hyperactivity Disorder, Hx Eating Disorder, Hx Panic Disorder, Hx Inpatient Treatment, Hx Schizophrenia, Hx Bipolar Disorder, Hx Suicide Attempt, Hx of Violent Episodes Against Others, Hx Substance Abuse, Other Psychiatric Issues/Disorders - Cancer History Cancer Type, Location and Year: None reported Hx Chemotherapy: No - Surgical History Surgical History: Yes Surgery Procedure, Year, and Place: Right wrist surgery/RIGHT ELBOW 05/17/17. 2017 RIGHT SHOULDER SURGERYx2. tonsillectomy 1989 [place] . [place] [facility] [place] 2006 [facility] [place] [facility] [place] ( one in [place] [facility] [place] biopsy [place] [facility] [place] ENDOSCOPIES/COLONOSCOPIES Hx Anesthesia Reactions: No - Immunization History Date of Tetanus Vaccine: Up to date Date of Influenza Vaccine: declined Infectious Disease History: No Infectious Disease History: Denies: Hx Clostridium Difficile, Hx Hepatitis, Hx Human Immunodeficiency Virus (HIV), Hx of Known/Suspected MRSA, Hx Shingles, Hx Tuberculosis, Hx Known/ Suspected VRE, Hx Known/Suspected VRSA, History Other Infectious Disease, Traveled Outside the [place] in Last 30 Days - Family History Known Family History: Positive: Cardiac Disease - mom, Diabetes - Social History Alcohol Use: None Hx Substance Use: Yes - not currently Substance Use Type: Reports: Marijuana Substance Use Comment - Amount & Last Used: hx cannabis use Hx Tobacco Use: Yes Smoking Status (MU): Light Every Day Tobacco Smoker Type: Cigarettes Amount Used/How Often: 1/2 PPD Length of Time of Smoking/Using Tobacco: since 17yo Have You Smoked in the Last Year: Yes Review of Systems Negative: Fever, Chills Negative: Erythema Negative: Sore Throat Negative: Chest Pain Negative: Shortness Of Breath, Cough Positive: Abdominal Pain - Right lower quadrant, Vomiting Negative: dysuria, hematuria Positive: Other - Right knee pain, back pain. Negative: Myalgia, Edema Negative: Rash Neurological/Mental Status: Negative - Dizziness All Other Systems Reviewed And Are Negative: Yes Physical Exam - Summary Physical Exam Summary: Constitutional: Well-developed, Well-nourished, Alert. (-) Distressed Skin: Warm, Dry HENT: Normocephalic; Atraumatic Eyes: Conjunctiva normal Neck: Musculoskeletal ROM normal neck. (-) JVD, (-) Stridor, (-) Tracheal deviation Cardio: Rhythm regular, rate normal, Heart sounds normal; Intact distal pulses; The pedal pulses are 2+ and symmetric. Radial pulses are 2+ and symmetric. (-) Murmur Pulmonary/Chest wall: Effort normal. (-) Respiratory distress, (-) Wheezes, (-) Rales Abd: Soft, suprapubic and right lower quadrant tenderness, (-) Distension, (-) Guarding, (-) Rebound Musculoskeletal: (-) Edema, no CVA tenderness Lymph: (-) Cervical adenopathy Neuro: Alert, Oriented x3 Psych: Mood and affect Normal Triage Information Reviewed: Yes Vital Signs On Initial Exam: Initial Vitals Temp Pulse Resp BP Pulse Ox 98.6 F 95 19 131/105 99 11/02/19 12:44 11/02/19 12:44 11/02/19 12:44 11/02/19 12:44 11/02/19 12:44 Vital Signs Reviewed: Yes Procedures - Sedation Patient Received Moderate/Deep Sedation with Procedure: No Diagnostics - Vital Signs Vital Signs Temp Pulse Resp BP Pulse Ox 11/02/19 12:44 98.6 F 95 19 131/105 99 - Laboratory Result Diagrams: 11/02/19 13:30 11/02/19 13:30 Lab Statement: Any lab studies that have been ordered have been reviewed, and results considered in the medical decision making process. - CT Abdomen/Pelvis CT CT Interpretation Completed By: Radiologist Summary of CT Findings: 1. ADNEXAL CYSTS MEASURE UP TO 2.3 CM ON THE LEFT. 2. 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 3. MODERATE STOOL VOLUME. ED physician has reviewed this report. - Ultrasound Transvaginal Ultrasound Ultrasound Interpretation Completed By: Radiologist Summary of Ultrasound Findings: 1. Grossly unremarkable pelvic ultrasound. 2. Simple left ovarian cyst measures up to 2.3 cm. 3. Ovarian Doppler signal detected bilaterally. ED physician has reviewed this report. Re-Evaluation - Re-Evaluation First Eval Re-Evaluation Time: 16:03 Change: Unchanged Comment: The patient denies any vaginal discharge. She recently received empiric treatment for potential PID. Second Eval Re-Evaluation Time: 16:12 Change: Unchanged Comment: The patient's exam is unchanged, she tolerated oral contrast. Complex Multi-Symp Course/Dx Course Of Treatment: 34 year old F presenting to [facility] with a chief complaint of right lower quadrant pain since this morning. Patient reports vomiting secondary to pain. She also reports chronic back pain and that her right knee has been hurting for a few days. Physical exam findings: suprapubic and right lower quadrant tenderness, no CVA tenderness. Abdomen/Pelvis CT reveals, per radiologist, 1. ADNEXAL CYSTS MEASURE UP TO 2.3 CM ON THE LEFT. 2. 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 3. MODERATE STOOL VOLUME. Transvaginal Ultrasound reveals, per radiologist, 1. Grossly unremarkable pelvic ultrasound. 2. Simple left ovarian cyst measures up to 2.3 cm. 3. Ovarian Doppler signal detected bilaterally. Laboratory results with no significant abnormalities except for an RDW of 18, BUN of 5, BUN/creatinine ratio of 7.2, and AST of 12. In the ED course, the patient was given normal saline, Percocet, Toradol, Tylenol 975 mg, and Zofran. Patient will be discharged with prescriptions for Colace and Percocet and follow up from Dr. Clemens. The patient is agreeable with this plan. - Diagnoses Differential Diagnoses/HQI/PQRI: Other - Ovarian cyst, ovarian torsion, ectopic , appendicitis Provider Diagnoses: Right lower quadrant pain, Ovarian cyst - Critical Care Time Critical Care Statement: Critical care time is provided exclusive of any time spent performing procedures. Discharge ED - Sign-Out/Discharge Documenting (check all that apply): Patient Departure - Discharge Plan Condition: Stable Disposition: HOME Prescriptions: Docusate CAP* [Colace Cap*] 100 mg PO BID #28 cap oxyCODONE/Acetamin 5/325 MG* [Percocet 5/325 TAB*] 1 tab PO Q6H PRN #15 tab MDD 4 PRN Reason: Pain - Severe Patient Education Materials: Ovarian Cyst (ED), Abdominal Pain (ED) Referrals: Darren Clemens MD [Primary Care Provider] - 3 Days Additional Instructions: Follow-up with your PCP within 3-5 days. Take your medication as prescribed. Return to the emergency department for changing or worsening symptoms. - Attestation Statements Document Initiated by Scribe: Yes Documenting Scribe: Dee Duran Provider For Whom Scribe is Documenting (Include Credential): Rogelio Aldana MD Scribe Attestation: Dee Trevizo, scribed for Rogelio Aldana MD on 11/02/19 at 1609. Status of Scribe Document: Ready
[2019-11-02] MEDS ORDERED: Ondansetron INJ* 2 MG/ML VIAL IV ONE (13:19)
[2019-11-02] MEDS ORDERED: Acetaminophen TAB* 325 MG PO ONE (13:19)
[2019-11-02] MEDS ORDERED: NS 0.9% 1000 ML** 1,000 ML IV ONE (13:21)
--- OUTSIDE RECORDS SUMMARY | 2019-11-02 13:27 | XMS REPORT | Continuity of Care Document ---
:1985 External Reference #:[id number] Author Name Aron Holland M.D. (transmitted by agent of provider Annalisa Summers) Address [address] [place] [address] Care Team Providers Name Role Phone Destin Mayer M.D. - Family Medicine Care Team Information Abalone Fisherman [phone] Jimmy Becker DO - Interventional Care Team Information Abalone Fisherman Pain Medicine [facility] - [facility] Disorder Care Team Information Abalone Fisherman Diagnostic Dwayne Fermin MD - Orthopaedic Care Team Information Abalone Fisherman Surgery Milton Moreno MD - Otolaryngology Care Team Information Abalone Fisherman Mars Snyder MD - Interventional Care Team Information Abalone Fisherman Pain Medicine Belgica Cueto MD - Endocrinology, Care Team Information Abalone Fisherman Diabetes & Metabolism Kamaljit Soria M.D. - Neurological Care Team Information Abalone Fisherman Surgery Adal Mendieta MD - Endocrinology, Care Team Information Abalone Fisherman [phone] Diabetes & Metabolism Nelson Schmid M.D. - Neurology Care Team Information Abalone Fisherman Darren Clemens MD - Hospitalist Care Team Information Abalone Fisherman [phone] Problems Active Problems Provider Date Congenital spondylolysis [...] 03/27/2011 Demerol 03/27/2011 Darvocet 03/27/2011 Toradol 03/27/2011 Bactrim 03/27/2011 Morphine 03/27/2011 Doxycycline 03/27/2011 Flexeril 03/27/2011 Skelaxin 03/27/2011 Miracle Whip, Ragu Sauce 03/27/2011 Depakote severe stomach pain Moderate 12/29/2013 Naproxen severe stomach pain 05/16/2019 Inactive Allergies Penicillin 03/27/2011 Medications Active Medications SIG Qnty Indications Ordering Date Provider Hydroxyzine HCL take one tab by 60tabs Kamaljit Mccoy 10/24/2019 50mg mouth twice a day, Tima Florentino Tablets as needed for medicine-induced itching Diazepam take one tablet by 30tabs Kamaljit [...] N.P. 0.1mg Tablets Acetaminophen-Codeine take 1 tab by 42tabs G89.4 Kamaljit Mccoy 09/25/2019 #3 mouth every 8 Tima Florentino 300-30mg Tablets hours as needed for tooth pain (for 2 weeks) code c mdd 3 Sumatriptan Succinate take 1 tablet by 12tabs G43.909 Jon Leal 03/24/2018 mouth at onset of Tima Hughes 100mg Tablets headache. may repeat after 2 hours as needed needs appointment Acetaminophen 2 tab 3 times 90tabs M54.5 Jon Leal 12/16/2017 500mg daily as needed Tima Hughes Tablets Benadryl Allergy 1-2 tabs PO prn 14tabs Other Ordering 06/22/2017 25mg Provider Tablets Ibuprofen 1 tab three times 30tabs Other Ordering 06/22/2017 600mg Tablets a day prn pain Provider Walker/Adult/Folding dx: h/o vertebral 1units M54.5 Leatha Jenkins, 2012 fracture, kyphosis Tima [facility] E888.9 Zofran take 1 tab every 6 Unknown 4mg Tablets hours as needed for vomiting. Omeprazole 1 by mouth every day 30caps Maritza Del Cid, 40mg Capsules DR as needed Tima History Medications Tramadol HCL Take one tab by 21tabs Kamaljit Mccoy 10/20/2019 - 50mg Tablets mouth every 8 Tima Florentino 10/24/2019 hours as needed for pain. (one week) code c mdd 3 Alprazolam take one tablet 30tabs Kamaljit Mccoy 10/06/2019 - 0.5mg Tablets by mouth, as Tima Florentino 10/11/2019 needed for insomnia. code c mdd 1 Fludrocortisone 1 by mouth 30tabs I95.1 Milton Huynh 09/26/2019 - Acetate every day Tima Cai 10/11/2019 0.1mg Tablets Lamotrigine [...] Tima Florentino 09/25/2019 Prednisone use as directed 1units Giana 07/24/2019 - 5mg (21) JUNITO Don M.D. 08/22/2019 Amitriptyline HCL take 4 tabs by 120tabs G43.009 Kamaljit Mccoy 07/21/2019 - 10mg mouth at Tima Florentino 09/04/2019 Tablets bedtime Amitriptyline HCL take one tab po 120tabs G43.009 Kamaljit Mccoy 07/21/2019 - 10mg at hs for one Tima Florentino 07/24/2019 Tablets wk, take 2 tabs at hs for one wk, take 3 tabs at hs for one wk, take 4 tabs at hs Meloxicam 1 by mouth 20tabs G50.1 Maritza 05/16/2019 - 15mg Tablets every day Tima Del Cid 06/27/2019 Medications Administered in Office Medication SIG Qnty Indications Ordering Provider Date Records Fee Damon Cuevas MD 07/27/2019 Injection Triamcinolone (Kenalog) Jourdan Workman MD 02/23/2017 Injection Immunizations CPT Code Status Date Vaccine Lot # [id number] Given 05/04/2013 Flu Vaccine NOS 35500 Given 10/27/2012 Tdap - Tetanus/Diptheria/Acellular Pertussis [id number] Vital Signs Date Vital Result Comment 10/17/2019 [facility] Vitamin B12 <pending> finding [address] [place] [address] [phone] CBC Auto Diff 09/08/2019 [facility] White Blood 5.4 10^3/uL Normal 3.5-10.[address] [place] [address] [phone] Red Blood Count 4.56 10^6/uL Normal 3.70-4.87 [...] Sodium 135 mmol/L Normal 135-145 Panel [address] [place] [address] [phone] Potassium 4.1 mmol/L Normal 3.5-5.0 Chloride 104 [...] [address] (Glyco HGB) [place] [address] [phone] T3 Total 102 ng/dL Normal 87-178 Thyroxine 6.59 g/dL Normal 6.09-12.23 Thyroid 09/08/2019 [facility] Thyroid 2.06 Normal <[address] Peroxidase IU/[place] [address] Antibodies [phone] Thyroglobulin Antibody II 0.0 IU/mL <4.0 Tick-Borne 09/08/2019 [facility] Anaplasma <1:64 <1:64 3 Disease AB [address] [place] [address] [phone] Babesia microti IgG Ab, S <1:64 titer <1:64 4 Ehrlichia chaffeensis IgG AB <1:64 titer <1:64 5 Lyme Disease Serology Negative Negative 6 Laboratory test 09/08/2019 [facility] Erythrocyte Sed 5 mm/Hr Normal 0-[address] [place] [address] [phone] C Reactive Protein 4.18 mg/L Normal <8.01 Nuclear AB (Carmita) By Ifa Igg <1:80 (Negative) 7 FSH And LH 09/08/2019 [facility] FSH (Follicle Stim 6.4 mIU/mL [address] Hormone) [place] [address] [phone] LH (Lutenizing Hormone) 5.4 mIU/mL 9 Laboratory test finding 09/08/2019 [facility] Estradiol 45 pg/ mL 10 [address] [place] [address] [phone] Dhea Sulfate 60 g/dL 45-295 11 TSH (Thyroid Stim Horm) 1.30 mcIU/mL Normal 0.34-5.60 Testosterone Total < 10.00 ng/dL Normal 8-60 Acth 17 pg/mL 12 Insulin-Like Growth 09/08/2019 [facility] Insulin like 166 ng/ mL 59-279 Factor 1 [address] [facility] [place] [address] I [phone] Igf1 Z-score 0.52 SD 13 Laboratory test 09/08/2019 [facility] Prolactin 24.5 ng/mL Normal 1.0-25.0 finding [address] [place] [address] [phone] Free T4 (Free Thyroxine) 0.87 ng/dL Normal 0.61-1.12 Sex Hormone Binding Globulin 34 nmol/L 14 Urinalysis Profile 06/11/2019 [facility] Urine Color Yellow [address] [place] [address] [phone] Urine Appearance Clear Urine Specific Dows 1.011 Normal 1.010-1.030 Urine pH 5.0 Normal 5-9 Urine Urobilinogen Negative Negative Urine Ketones Negative Negative Urine Protein Negative Negative Urine Leukocytes Negative Negative Urine Blood Negative Negative Urine Nitrite Negative Negative Urine Bilirubin Negative Negative Urine Glucose Negative Negative Laboratory test 06/11/2019 [facility] Magnesium 1.8 mg/dL Low 1.9-2.7 finding [address] [place] [address] [phone] Comp Metabolic 06/11/2019 [facility] Sodium 134 mmol/L Low 135 -145 Panel [address] [place] [address] [phone] Potassium 3.5 mmol/L Normal 3.5-5.0 Chloride 102 [...] Normal 0.5-2.0 [address] [place] [address] [phone] CBC Auto Diff 06/11/2019 [facility] White Blood 9.6 Normal 3.5 -10.[address] Count 10^3/[place] [address] [phone] Red Blood Count 4.17 10^6/uL Normal 3.70-4.87 [...] 1.06 Normal 0.82-1.[address] [place] [address] [phone] Laboratory test 05/16/2019 [facility] Prolactin 19.7 Normal 1.0-25.[address] ng/[place] [address] [phone] TSH (Thyroid Stim Horm) 1.36 mcIU/mL Normal [...] in selective patients <6.0%. Please refer to Citizen [place] Diabetes Association diabetic care guidelines for further information. 3 ADDITIONAL INFORMATION This test was developed using an analyte specific reagent. Its performance characteristics were determined by [facility] in a manner consistent with CLIA requirements. This test has not been cleared or approved by the U.S. Food and Drug Administration. 4 ADDITIONAL INFORMATION This test was developed using an analyte specific reagent. Its performance characteristics were determined by [facility] in a manner consistent with CLIA requirements. This test has not been cleared or approved by the U.S. Food and Drug Administration. 5 ADDITIONAL INFORMATION This test was developed using an analyte specific reagent. Its performance characteristics were determined by [facility] in a manner consistent with CLIA [...] 2-4 weeks. Test Performed by: [facility] [place] [address] Engine Lathe Set Up Operator Tool: Robert Marshall M.D. Ph.D.; CLIA# [id number] 7 <1:80 (Negative) REFERENCE VALUE <1:80 (Negative) Test Performed by: [facility] [place] [address] Engine Lathe Set Up Operator Tool: Robert Marshall M.D. Ph.D.; CLIA# [id number] 8 Normally menstruating females - Follicular phase [...] + 12 15-115 11 Test Performed by: [place] [address] Engine Lathe Set Up Operator Tool: Robert Marshall M.D. Ph.D.; CLIA# [id number] 12 REFERENCE VALUE 7.2-63 (a.m. collection) Test Performed by: [facility] [place] [address] Engine Lathe Set Up Operator Tool: Robert Marshall M.D. Ph.D.; CLIA# [id number] 13 REFERENCE VALUE -2.0 - +2.0 ADDITIONAL INFORMATION This test was developed and its performance characteristics determined by [facility] in a manner consistent with CLIA requirements. This test has not been cleared or approved by the U.S. Food and Drug Administration. Test Performed by: [facility] [place] [address] Engine Lathe Set Up Operator Tool: Robert Marshall M.D. Ph.D.; CLIA# [id number] 14 REFERENCE VALUE 18-144 (non-) Test Performed by: [facility] [place] [address] Engine Lathe Set Up Operator Tool: Robert Marshall M.D. Ph.D.; CLIA# [id number] 15 Because ethnic data is not always [...] 5 Kidney failure <15 (or dialysis) 16 [facility] Severe Sepsis and Septic Shock Management Bundle Measure requires all lactic acids initially measuring >2.0 mmol/L be repeated. 17 Standard intensity warfarin therapeutic range: 2.0-3.0 High intensity warfarin therapeutic range: 2.5-3.5 Procedures Date Code Description Status 09/26/2019 87551 EKG Tracing & Interpretation Completed 09/20/2019 75080 Holter Monitor Review (24 hr)dr review & interp only Completed 09/19/2019 05018 ECG Monitor/Recording W/Visual Superimposition Scanning Completed 09/19/2019 38235 ECG Monitor/Recording W/Visual Superimposition Scanning Completed 09/08/2019 45590 EEG Recording Awake & Drowsy Completed 08/15/2019 25826 Nerve Conduction 03-04 Studies Completed 08/15/2019 46151 Needle Electromyography Complete, Five Or More Muscles Completed Studied 07/10/2019 82677 EEG Recording Awake & Drowsy Completed 05/31/2019 83057 EEG Recording Awake & Drowsy Completed 06/24/2010 82301520 Mammogram Completed Medical Devices Description No Information Available Encounters Type Date Location Provider Dx Diagnosis Office Visit 10/31/2019 Rheumatology Aron Holland, I73.00 [facility] 11:00a [facility] M.[facility]. syndrome without gangrene R20.8 Other disturbances of skin sensation M79.10 Myalgia, unspecified site M54.5 Low back pain E55.9 Vitamin D deficiency, unspecified Office Visit 10/17/2019 [facility] Damon S53.401A Unspecified 2:00p [facility] at [facility] sprain of right [place] elbow, initial encounter S63.591A Other specified sprain of right wrist, initial encounter S46.011D Strain of musc/tend the rotator cuff of right shoulder, subs M25.521 Pain in right elbow M25.531 Pain in right wrist R29.6 Repeated falls Office Visit 10/13/2019 11:40a [facility] Internal Joan M25.511 Pain in right Medicine - Suite DO Obed shoulder R Office Visit 10/12/2019 2:00p [facility] [place] Zarina Mccoy R55 Syncope and Foster, N.P. collapse Z72.0 Tobacco use R00.2 Palpitations Office Visit 09/26/2019 2:00p [facility] Milton Huynh I73.00 Cherie Cai M.D. syndrome without gangrene R55 Syncope and collapse Z72.0 Tobacco use R00.2 Palpitations Office Visit 09/15/2019 [facility] Leandro Gagnon, G40.209 Local-rel 10:00a Clinic HAND TOUCH UP PAINTER symptc epi w cmplx prt seiz,not ntrct,w/o stat epi Z79.899 Other correction (current) drug therapy Office Visit 09/07/2019 2:00p [facility] Vanessa White, R55 Syncope and Medicine - Lorraine Alfred, FACP collapse G40.89 Other seizures G89.4 Chronic pain syndrome F17.210 Nicotine dependence, cigarettes, uncomplicated Office Visit 09/06/2019 2:00p [facility] [place] and Galeasemeka Mendieta, 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 R68.82 Decreased libido N92.6 Irregular menstruation, unspecified R53.83 Other fatigue Office Visit 09/01/2019 11:30a [facility] Leandro Gagnon, R55 Syncope and HAND TOUCH UP PAINTER collapse G43.009 Migraine w/o aura, not intractable, w/o status migrainosus R53.83 Other fatigue Office Visit 08/29/2019 1:15p [facility] Damon S46.011D Strain of at MD candace Flower/tend the rotator cuff of right shoulder, subs Office Visit 08/22/2019 1:15p [facility] Damon S46.011D Strain of at MD candace Flower/tend the rotator cuff of right shoulder, subs G56.21 Lesion of ulnar nerve, right upper limb G56.22 Lesion of ulnar nerve, left upper limb Office Visit 08/22/2019 [facility] Belgicaum Gilson G89.4 [facility] HAND TOUCH UP PAINTER syndrome Office Visit 08/07/2019 [facility] [place] Giana M75.41 Impingement 1:30p Orthopedics at [facility] Don syndrome of right [place] shoulder S46.011A Strain of musc/tend the rotator cuff of right shoulder, init M25.511 Pain in right shoulder Office Visit 07/24/2019 2:45p [facility] Tory Weathers, M25.511 Pain in right at [place] RPA-C shoulder S46.011A Strain of musc/tend the rotator cuff of right shoulder, init M75.41 Impingement syndrome of right shoulder Office Visit 07/21/2019 [facility] Leandro Gagnon, G43.009 Migraine w/o 11:00a Clinic HAND TOUCH UP PAINTER aura, not intractable, w/o status migrainosus R55 Syncope and collapse F07.81 Postconcussional syndrome Office Visit 07/19/2019 11:15a [facility] Damon S46.011D Strain of at Lidia Cuevas MD musc/tend the rotator cuff of right shoulder, subs G56.01 Carpal tunnel syndrome, right upper limb G56.21 Lesion of ulnar nerve, right upper limb Office Visit 06/28/2019 [facility]hospital[facility] Leandro Gagnon, R56.9 Unspecified 3:00p Clinic HAND TOUCH UP PAINTER convulsions G43.009 Migraine w/o aura, not intractable, w/o status migrainosus M54.2 Cervicalgia Office Visit 05/16/2019 2:40p [facility] Maritza G40.89 Other seizures Medicine - Lorraine Del Cid M.D. D35.2 Benign neoplasm of pituitary gland Z72.0 Tobacco use G50.1 Atypical facial pain Assessments Date Code Description Provider 10/31/2019 I73.00 Raynaud's syndrome without gangrene Aron Holland M.D. 10/31/2019 R20.8 Other disturbances of skin sensation Aron Holland M.D. 10/31/2019 M79.10 Myalgia, unspecified site Aron Holland M.D. 10/31/2019 M54.5 Low back pain Aron Holland M.D. 10/31/2019 E55.9 Vitamin D deficiency, unspecified Aron Holland M.D. 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 with complex partial seizures, not intractable, without status epilepticus 09/07/2019 R55 Syncope and collapse Vanessa White M.D., [facility] 09/07/2019 G40.89 Other seizures Vanessa White M.D., FAC 09/07/2019 G89.4 Chronic pain syndrome Vanessa White M.D., [facility] 09/07/2019 F17.210 Nicotine dependence, cigarettes, Vanessa White [...] 08/22/2019 G89.4 Chronic pain syndrome Edd Reevesvivian, HAND TOUCH UP PAINTER 08/22/2019 S46.011D Strain of muscle(s) and tendon(s) [...] Leandro Gagnon, JANETH 07/21/2019 F07.81 Postconcussional syndrome Leandro Gagnon, JANETH [...] Del Cid M.D. Plan of Treatment Future Appointment(s):01/10/2020 2:00 pm - Aron Holland M.D. at [facility]02/29/2020 7:30 am - Damon Cuevas MD at [facility] at [id number]/14/2020 11:00 am - Damon Cuevas MD at [facility] at Lqzoch1002/01/2020 9:45 am - Damon Cuevas MD at [facility] at [id number] 11:00 am - Damon Cuevas MD at [facility] at [id number] 11:30 am - Leandro Gagnon NP at [facility]11/14/2019 11:30 am - Damon Cuevas MD at [facility] at [id number]/20/2019 - Leandro Gagnon, NPR55 Syncope and swgvnyqtE54.6 Repeated uislwU01.409 Other generalized epilepsy and epileptic syndromes, not intractable, without status epilepticusFollow up:ONE MONTH via telemedicine Functional Status Description No Information Available Mental Status Description No Information Available Referrals Refer to Dr Reason for Referral Status Appt Date Julienne Crews MD raynaud's, Sent 10/31/2019 [address], [place] [address] [phone] Darren Clemens MD Needs to establish care with a PCP to be cleared Scheduled for upcoming dental and shoulder surgery. [address] [place] [address] [phone] Milton Cai MD Previous patient; describes syncopal events, Sent lightheadedness, dizziness [address] [facility] [place], [place] [id number] [phone] Adal Mendieta MD Patient Notified 09/06/[address] [place] [address] [phone] Nelson Schmid M.D. Sent 06/28/2019 [address] [place] [address] [phone]
[2019-11-02 13:43] LABS: ABS Eosinophils 0.3 10^3/ul (0-0.6); ABS Lymphocytes 1.6 10^3/ul (1.0-4.8); ABS Monocytes 0.4 10^3/ul (0-0.8); ABS Neutrophils 4.4 10^3/ul (1.5-7.7); Hematocrit 38 % (35-47); Hemoglobin 12.5 g/dL (12.0-16.0); Lymphocyte % 23.4 %; Mean Corpuscular HGB Conc 33 g/dL (31-36); Mean Corpuscular Hemoglobin 27 pg (27-31); Mean Corpuscular Volume 83 fL (80-97); Mean Platelet Volume 9.6 fL (7.4-10.4); Nucleated Red Blood Cells % 0.1; Platelet Count 225 10^3/uL (150-450); Red Blood Count 4.58 10^6 /uL (3.70-4.87); Red Cell Distribution Width 18 % (10-15); White Blood Count 6.7 10^3/uL (3.5-10.8)
[2019-11-02 14:00] LABS: ALT 9 U/L (7-52); AST 12 U/L (13-39); Albumin 3.8 g/dL (3.2-5.2); Albumin/Globulin Ratio 1.5 (1-3); Alkaline Phosphatase 35 U/L (34-104); Anion Gap 3 mmol/L (2-11); BUN/Creatinine Ratio 7.2 (8-20); Blood Urea Nitrogen 5 mg/dL (6-24); C Reactive Protein < 1.00 mg/L (<8.01); CO2 Carbon Dioxide 27 mmol/L (22-32); Calcium 8.6 mg/dL (8.6-10.3); Chloride 109 mmol/L (101-111); EGFR African American 118.6 (>60); Globulin 2.6 g/dL (2-4); Glucose 85 mg/dL (70-100); Potassium 4.3 mmol/L (3.5-5.0); Sodium 139 mmol/L (135-145); Total Protein 6.4 g/dL (6.4-8.9)
[2019-11-02 14:06] LABS: HCG Pregnancy < 0.60 mIU/mL
[2019-11-02] MEDS ORDERED: Ketorolac INJ* 30 MG/ML 1 ML VIAL IV PUSH ONE (14:08)
[2019-11-02 14:16] LABS: Urine Appearance Clear; Urine Bilirubin Negative (Negative); Urine Blood Negative (Negative); Urine Color Yellow; Urine Glucose Negative (Negative); Urine Ketones Negative (Negative); Urine Nitrite Negative (Negative); Urine Protein Negative (Negative); Urine Specific Gravity 1.011 (1.010-1.030); Urine Urobilinogen Negative (Negative)
[2019-11-02] MEDS ORDERED: Iohexol 300* (CONTRAST) 10 ML SDV IV ONE (14:31)
[2019-11-02] MEDS ORDERED: oxyCODONE/Acetamin 5/325 MG* TAB PO ONE (16:11)
[2019-11-02 16:24] VITALS: BP 120/82
== END 2019-11-02 16:23 | disposition home or self-care (01) ==
LOC: ED 12:43
DX: R10.31 Right lower quadrant pain (principal); N83.209 Unspecified ovarian cyst, unspecified side; M54.9 Dorsalgia, unspecified; R11.10 Vomiting, unspecified; Z88.0 Allergy status to penicillin; Z88.8 Allergy status to other drugs, medicaments and biological substances; Z79.899 Other long term (current) drug therapy; F17.210 Nicotine dependence, cigarettes, uncomplicated
CPT/HCPCS: 36415; 74177; 76830; 80053; 81003; 83605; 83690; 84702; 85025; 86140; 96361; 96374; 96375; 99283; A9270-GY; J1885; J2405; Q9967

== ENCOUNTER 2021-03-24 10:07 | Inpatient (IN) ==
[2021-03-24] MEDS ORDERED: Penicillin G Potassium IV 5,000,000 UNITS in NS 0.9% 100 ml BAG 100 ML IVPB ONE (10:49)
[2021-03-24] MEDS ORDERED: Buffered Lidocaine 1% SYRIN 1 ml INTRADERM ONE (10:49)
[2021-03-24] MEDS ORDERED: Lactated Ringers 1000 ml BAG 1,000 ML IV SCH ×3 (11:00→20:00)
[2021-03-24] MEDS ORDERED: Oxytocin in LR 20 UNITS/1,000 ML BAG IVPB SCH ×2 (11:00→20:00)
[2021-03-24] MEDS: Lactated Ringers 1000 ml BAG 1,000 ML IV SCH ×3 (11:30→18:45)
[2021-03-24 12:14] LABS: Hematocrit 37 % (35-47); Hemoglobin 12.5 g/dL (12.0-16.0); Mean Corpuscular HGB Conc 34 g/dL (31-36); Mean Corpuscular Hemoglobin 28 pg (27-31); Mean Corpuscular Volume 83 fL (80-97); Mean Platelet Volume 11.5 fL (7.4-10.4); Platelet Count 209 10^3/uL (150-450); Red Blood Count 4.41 10^6 /uL (3.70-4.87); Red Cell Distribution Width 17 % (10-15); White Blood Count 10.4 10^3/uL (3.5-10.8)
[2021-03-24 12:53] LABS: ABS Basophils 0.1 10^3/ul (0-0.2); ABS Eosinophils 0.1 10^3/ul (0-0.6); ABS Lymphocytes 1.5 10^3/ul (1.0-4.8); ABS Monocytes 0.5 10^3/ul (0-0.8); ABS Neutrophils 8.3 10^3/ul (1.5-7.7); Eosinophil % 0.9 %; Lymphocyte % 14.2 %
[2021-03-24] MEDS ORDERED: OBEPIDURAL 250 ML EPIDURAL ONE (13:08)
[2021-03-24 13:21] LABS: Urine Benzodiazepine Screen None Detected (None Detect); Urine Cannabinoids Screen Presumptive Positive (None Detect); Urine Opiates Screen None Detected (None Detect)
[2021-03-24] MEDS ORDERED: Phenylephrine 40 mcg/mL 10mL (400mcg) SYRINGE IV PUSH PRN ×2 (14:08)
[2021-03-24] MEDS ORDERED: Sodium Citrate/Citric Acid LIQ 15 ML UDC PO PRN (14:08)
[2021-03-24] MEDS ORDERED: EPHEDrine (Pressors) 50 MG/ML VIAL IV PUSH PRN ×2 (14:08)
[2021-03-24] MEDS ORDERED: Lactated Ringers 1000 ml BAG 1,000 ML IV ONE (14:08)
[2021-03-24] MEDS ORDERED: OBEPIDURAL 250 ML EPIDURAL SCH (15:00)
[2021-03-24 15:44] LABS: Urine Appearance Clear; Urine Bilirubin Negative (Negative); Urine Blood Negative (Negative); Urine Color Yellow; Urine Glucose Negative (Negative); Urine Ketones Trace (Negative); Urine Nitrite Negative (Negative); Urine Protein Negative (Negative); Urine Specific Gravity 1.023 (1.002-1.030); Urine Urobilinogen Negative (Negative)
[2021-03-24] MEDS ORDERED: Penicillin G Potassium IV 3,000,000 UNITS in NS 0.9% 100 ml BAG 100 ML IVPB SCH (16:00)
[2021-03-24] MEDS ORDERED: Dibucaine 1% OINT 28.35 GM TUBE PR PRN (19:37)
[2021-03-24] MEDS ORDERED: RHO D Immune Globulin (HUMAN) 300 MCG = 1,500 I.U. INJ IM PRN (19:37)
[2021-03-24] MEDS ORDERED: witch hazeL 43% TOP.SOLN 200 ML PHA COMPOUND TOPICAL PRN (19:57)
[2021-03-25 06:53] LABS: ABS Basophils 0.1 10^3/ul (0-0.2); ABS Eosinophils 0.2 10^3/ul (0-0.6); ABS Lymphocytes 1.6 10^3/ul (1.0-4.8); ABS Monocytes 0.6 10^3/ul (0-0.8); ABS Neutrophils 6.9 10^3/ul (1.5-7.7); Eosinophil % 1.8 %; Hematocrit 30 % (35-47); Hemoglobin 10.4 g/dL (12.0-16.0); Lymphocyte % 17.3 %; Mean Corpuscular HGB Conc 34 g/dL (31-36); Mean Corpuscular Hemoglobin 29 pg (27-31); Mean Corpuscular Volume 84 fL (80-97); Mean Platelet Volume 11.2 fL (7.4-10.4); Platelet Count 175 10^3/uL (150-450); Red Blood Count 3.61 10^6 /uL (3.70-4.87); Red Cell Distribution Width 17 % (10-15); White Blood Count 9.4 10^3/uL (3.5-10.8)
[2021-03-25] MEDS ORDERED: Tetan/Diph/Pertus SYR(Tdap) 0.5 ML SYR(BOOSTRIX) use SYR contains LATEX IM ONE (10:24)
[2021-03-25] MEDS ORDERED: Varicella Virus Vaccine Live 0.5 ML VIAL SUBCUT ONE (13:00)
[2021-03-26 11:54] VITALS: BP 120/76
== END 2021-03-26 14:20 | disposition home or self-care (01) | DRG 560 ==
LOC: MCHOBOUT 10:07 → MCHOB 10:45
PROVIDERS: ADMIT Obstetrics & Gynecology; ATTEND Obstetrics & Gynecology